=== PATIENT | female | born 1940 | race Caucasian/White ===

== ENCOUNTER → 2016-10-07 | Outpatient (CLI) | payer OTHER ==
[~2016-10-07] MED LIST: ALEN70TA2 PO; CHOL20005 PO; LISI-461 PO; METO25TA56 PO; NRV/5 PO; NXM/40 PO; POTA10TA32 PO; POTA20TA16 PO; PRAV40TA2 PO; TMB100 PO; WARF-280 PO
--- NOTE | 2016-10-07 15:21 | MAMMOGRAPHY REPORT ---
BILATERAL DIGITAL SCREENING MAMMOGRAM WITH CAD: 10/07/2016 CLINICAL HISTORY: Routine screening. Patient has no complaints. TECHNIQUE: Current study was also evaluated with a Computer Aided Detection (CAD) system. Bilateral CC and MLO views were obtained. COMPARISON: Comparison is made to exams dated: 10/06/2015 mammogram, 10/02/2014 mammogram, 10/01/2013 juana mogram, 09/27/2012 mammogram, 09/27/2011 mammogram, and 09/23/2010 mammogram - [facility] BREAST COMPOSITION: There are scattered areas of fibroglandular density in both breasts. FINDINGS: No suspicious masses, calcifications, or areas of architectural distortion are noted in ei ther breast. There has been no significant interval change compared to prior exams. IMPRESSION: ACR BI-RADS CATEGORY 1: NEGATIVE There is no mammographic evidence of malignancy. A 1 year screening mammogram is recommended. The pa tient will receive written notification of the results. Approximately 10% of breast cancers are not detected with mammography. A negative mammographic report should not delay biopsy if a clinically suggestive mass is present. Jordyn Gandhi M.D. /:10/07/2016 12:20:26 Weights And Measures Inspector: Aidee LEYVA(Woo)(Sean)(BD), [facility] letter sent: Normal 1/2 BI-RADS Code: ACR BI-RADS Category 1: Negative
== END | disposition home or self-care (01) ==
LOC: C.MAMM 10:33
PROVIDERS: ATTEND Student in an Organized Health Care Education/Training Program
DX: Z12.31 Encounter for screening mammogram for malignant neoplasm of breast (principal)

== ENCOUNTER 2017-01-13 10:00 | Emergency (ER) | payer OTHER ==
[~2017-01-13] VITALS: Ht 165.1 cm; Wt 74.2 kg
[2017-01-13 10:08] VITALS: TEMP 36.9; Ht 165.1 cm; Wt 74.2 kg
[2017-01-13] MEDS ORDERED: POTA10CA28 PO (10:29)
--- NOTE | 2017-01-13 11:07 | DIAGNOSTIC IMAGING REPORT ---
LEFT LOWER EXTREMITY VENOUS DOPPLER HISTORY: Left lower extremity swelling. COMPARISON STUDY: None. FINDINGS: There is normal compressibility, flow, and augmentation within the left lower extremity deep venous system. There is a 6.8 x 3.0 x 4.6 cm complex oval-shaped structure within the popliteal fossa. This is not demonstrate color flow. IMPRESSION: 1. No DVT within the left lower extremity. 2. A 6.8 x 4.6 x 3.0 cm complex oval-shaped structure within the popliteal fossa. This does not clearly demonstrate color flow to suggest a soft tissue mass and could represent a complex popliteal cyst. However, contrast enhanced nonemergent MRI is recommended to exclude the possibility of a peripheral nerve sheath tumor. Electronically signed by: Jose Nettles M.D. 01/13/2017 11:06 AM Dictated Date/Time: 01/13/2017 11:04 AM
[2017-01-13 11:32] VITALS: BP 155/72; PULSE 57; O2SAT 97
--- NOTE | 2017-01-13 16:34 | EMERGENCY ROOM VISIT NOTE ---
History Report prepared by Jeri: Paul Alvarez Under the Supervision of: Dr. Pramod Maddox D.O. First contact with patient: 10:12 Chief Complaint: KNEEPAIN Stated Complaint: SWELLING/PAIN TO KNEE History of Present Illness The patient is a 76 year old female who presents to the Emergency Room with complaints of left knee pain that began last week. She rates her pain an 8/10 in severity. She has had pain to her knee for the last 2 or 3 years, but it has been worse recently. She saw her PCP a couple of days ago who referred her to get an X-Ray of the left knee. They believed it to be arthritis. However, she is now experiencing swelling to the knee. She notes that her left foot feels asleep as well. She denies any recent trauma or injury to the knee. She denies any previous surgeries to the knee as well. She denies any fevers, nausea, vomiting, diarrhea, weakness, problems defecating, or other numbness. She is having trouble bending her leg. She is on Warfarin. Source of History: patient Onset: last week Position: knee (left) Symptom Intensity: 8/10 Quality: ache Timing: worsening Modifying Factors (Worsening): movement Associated Symptoms: + numbness (right foot), No fevers, No nausea, No vomiting, No melena, No hematochezia, No diarrhea, No weakness Review of Systems See HPI for pertinent positives & negatives. A total of 10 systems reviewed and were otherwise negative. Past Medical & Surgical Medical Problems: (1) CKD (chronic kidney disease) stage 3, GFR 30-59 ml/min (2) GERD (gastroesophageal reflux disease) (3) History of skin cancer (4) Hyperlipidemia (5) Hypertension Nos (6) Obstructive sleep apnea (7) Osteoporosis (8) Paroxysmal atrial fibrillation (9) Rapid atrial fibrillation Surgical Problems: (1) History of cholecystectomy Family History Diabetes mellitus MOTHER FH: emphysema FATHER Gallbladder disease Hypertension MOTHER SISTER Social History Smoking Status: Never Smoker Smokeless Tobacco Use: No Drug Use: none Marital Status: Housing Status: lives with significant other Occupation Status: retired Current/Historical Medications Scheduled Alendronate Sodium (Fosamax), 70 MG PO WK Amlodipine Besylate (Amlodipine Besylate), 5 MG PO DAILY Cholecalciferol (Vitamin D3), 2,000 INTER.UNIT PO DAILY Esomeprazole Magnesium (Nexium), 40 MG PO DAILY Flecainide Acetate (Flecainide Acetate), 100 MG PO BID Lisinopril (Lisinopril), 10 MG PO BID Metoprolol Tartrate (Lopressor) (Lopressor), 25 MG PO BID Potassium Chloride (Micro-K Ext Rel), 10 MEQ PO QPM Potassium Ext Rel (Klor-Con), 20 MEQ PO DAILY Pravastatin Sodium (Pravastatin Sodium), 40 MG PO HS Warfarin Sodium (Warfarin Sodium), 2.5 MG PO UD Allergies Coded Allergies: Penicillins (Verified Allergy, Unknown, RASH, 01/13/17) RASH Physical Exam Vital Signs Date Time Temp Pulse Resp B/P (MAP) Pulse Ox O2 Delivery O2 Flow Rate FiO2 01/13/17 11:32 57 18 155/72 97 Room Air 01/13/17 10:08 36.9 88 18 161/80 98 Room Air Physical Exam GENERAL: Sitting up in bed, holding left extremity at the knee, alert, well appearing, well nourished, minimal distress, non-toxic EYE EXAM: normal conjunctiva OROPHARYNX: no exudate, no erythema, lips, buccal mucosa, and tongue normal and mucous membranes are moist NECK: supple, no nuchal rigidity, no adenopathy, non-tender LUNGS: Clear to auscultation. Normal chest wall mechanics HEART: no murmurs, S1 normal and S2 normal ABDOMEN: abdomen soft, non-tender, normo-active bowel sounds, no masses, no rebound or guarding. UPPER EXTREMITIES: upper extremities are grossly normal. LOWER EXTREMITIES: Left knee with fullness/mass in the posterior prepatellar space. No erythema or induration. Skin intact. Flexion and extension at the hip , knee, ankle, and EHL intact. Significant pain with flexion of the knee beyond 30 degrees. DP 2/4. Gross sensation intact. NEURO EXAM: Normal sensorium, cranial nerves II-XII grossly intact, normal speech, no gross weakness of arms, no gross weakness of legs. Medical Decision & Procedures ER Provider Diagnostic Interpretation: Radiology results as stated below per my review and the radiologist's interpretation: Provided by the patient: KNEE COMPLETE, 4 OR MORE VIEWS X-RAY Borderline diffuse, osteopenia. No acute fracture or dislocation. Mild degenerative changes are noted with joint space narrowing and osteophyte formation, greatest medially. Neutral varus-valgus is noted due to medial joint space narrowing. A small joint effusion is appreciated. No focal soft tissue swelling is seen. Minimal atherosclerotic calcifications noted within the distal thigh. IMPRESSION: 1. No acute osseous abnormality to the LEFT knee. 2. Mild LEFT knee tricompartmental degenerative changes, greatest medially. LEFT LOWER EXTREMITY VENOUS DOPPLER HISTORY: Left lower extremity swelling. COMPARISON STUDY: None. FINDINGS: There is normal compressibility, flow, and augmentation within the left lower extremity deep venous system. There is a 6.8 x 3.0 x 4.6 cm complex oval-shaped structure within the popliteal fossa. This is not demonstrate color flow. IMPRESSION: 1. No DVT within the left lower extremity. 2. A 6.8 x 4.6 x 3.0 cm complex oval-shaped structure within the popliteal fossa. This does not clearly demonstrate color flow to suggest a soft tissue mass and could represent a complex popliteal cyst. However, contrast enhanced nonemergent MRI is recommended to exclude the possibility of a peripheral nerve sheath tumor. Electronically signed by: Jose Nettles M.D. 01/13/2017 11:06 AM Dictated Date/Time: 01/13/2017 11:04 AM ED Course ED COURSE: Vital signs were reviewed and showed hypertension. The patients medical record was reviewed The above diagnostic studies were performed and reviewed. ED treatments and interventions as stated above. 1012: The patient was evaluated in room A9B. A complete history and physical examination was performed. 1120: I updated the patient at this time. She does not want pain medications. 1210: Upon reevaluation, the patient is resting. I discussed my findings with the patient and she understands and agrees with the treatment plan. Based on the patients age, coexisting illnesses, exam and lab findings the decision to treat as an outpatient was made. The patient remained stable while under my care. The patient appeared well at the time of discharge. Medical Decision Differential diagnosis: Etiologies such as fracture, dislocation, neurovascular compromise, compartment syndrome, soft tissue injury, as well as others were entertained. Patient is a 76-year-old female who presents to the ER for left knee pain. She has fullness behind her left knee. She notes that when she flexes that she has significant pain. This is worsening over the past week. Ultrasound shows a 6 x 3 cm mass in the popliteal fossa questionable nerve sheath tumor. Abdomen the patient regards to this. She is on Coumadin and INR on Tuesday was therapeutic. No subtherapeutic INRs in the past 8 months. Patient declined pain medications. She declined crutches. She was discharged follow-up with orthopedics on Tuesday. Discussed with Pt concerning signs and symptoms to watch out for. Pt was instructed to follow up with their PCP and discussed with the patient their option to return to the ED at anytime for persistent or worsening symptoms. The appropriate anticipatory guidance and out-patient management, including indications for return to the emergency department, were explained at length to the patient and understood. Medication Reconcilliation Current Medication List: was personally reviewed by me Blood Pressure Screening Patient's blood pressure: Elevated blood pressure Blood pressure disposition: Elevated BP felt to be situational Impression Primary Impression: Knee pain Scribe Attestation The scribe's documentation has been prepared under my direction and personally reviewed by me in its entirety. I confirm that the note above accurately reflects all work, treatment, procedures, and medical decision making performed by me. Departure Information Dispostion Home / Self-Care Referrals Gregory Goodson M.D. (PCP) Thaddeus Ty M.D. Forms HOME CARE DOCUMENTATION FORM, IMPORTANT VISIT INFORMATION Patient Instructions Cyst Popliteal, ED Effusion Knee, My [facility] Additional Instructions Please follow up with orthopedics with in the next 48 hours. Any worsening of your symptoms, please return to the ED immediately. This includes any fevers greater than 100.4, worsening pain, chest pain, shortness breath, persistent nausea, vomiting, unable to eat or drink, or any other concerning signs or symptoms from your standpoint. ULTRASOUND SHOWS: A 6.8 x 4.6 x 3.0 cm complex oval-shaped structure within the popliteal fossa. This does not clearly demonstrate color flow to suggest a soft tissue mass and could represent a complex popliteal cyst. However, contrast enhanced nonemergent MRI is recommended to exclude the possibility of a peripheral nerve sheath tumor. Problem Qualifiers Primary Impression: Knee pain Chronicity: acute Laterality: left Qualified Codes: M25.562 - Pain in left knee
== END 2017-01-13 11:42 | disposition home or self-care (01) ==
LOC: C.EDB 10:01 → C.EDA 11:42
DX: M25.562 Pain in left knee (principal); N18.3 Chronic kidney disease, stage 3 (moderate); I12.9 Hypertensive chronic kidney disease with stage 1 through stage 4 chronic kidney disease, or unspecified chronic kidney disease; K21.9 Gastro-esophageal reflux disease without esophagitis; Z85.828 Personal history of other malignant neoplasm of skin; E78.5 Hyperlipidemia, unspecified; G47.33 Obstructive sleep apnea (adult) (pediatric); M81.0 Age-related osteoporosis without current pathological fracture; I48.0 Paroxysmal atrial fibrillation; Z90.49 Acquired absence of other specified parts of digestive tract; Z83.3 Family history of diabetes mellitus; Z84.1 Family history of disorders of kidney and ureter; Z82.49 Family history of ischemic heart disease and other diseases of the circulatory system; Z79.899 Other long term (current) drug therapy; Z79.01 Long term (current) use of anticoagulants

== ENCOUNTER 2018-06-05 18:47 | Inpatient (IN) ==
[2018-06-05] MEDS ORDERED: PANTOprazole 80 MG in DEXTROSE 5% 100 ML IV ONE ×2 (18:59)
[2018-06-05] MEDS ORDERED: PANTOPRAZOLE BOLUS/DRIP 1 EA IV STA (18:59)
[2018-06-05] MEDS ORDERED: ONDANSETRON INJ 2 MG/ML 2 ML VIAL IV STA (18:59)
[2018-06-05] MEDS ORDERED: SODIUM CHLORIDE 0.9% 1000ML 1,000 ML IV SCH (19:15)
[2018-06-05 19:33] LABS: Basophils # (auto) 0.02 K/uL (0-0.2); Basophils % (auto) 0.3 %; Eosinophils # (auto) 0.03 K/uL (0-0.5); Eosinophils % (auto) 0.5 %; Hematocrit (blood only) 37.1 % (37-47); Hemoglobin 12.7 g/dL (12.0-16.0); Immature Granulocytes # (auto) 0.01 K/uL (0.00-0.02); Immature Granulocytes % (auto) 0.2 %; Lymphocytes # (auto) 1.47 K/uL (1.2-3.4); Lymphocytes % (auto) 23.7 %; Mean Corpuscular Hgb Conc 34.2 g/dL (32-36); Mean Corpuscular Volume 89.6 fL (80-100); Mean Platelet Volume 10.8 fL (7.4-10.4); Monocytes # (auto) 0.34 K/uL (0.11-0.59); Monocytes % (auto) 5.5 %; Neutrophils # (auto) 4.32 K/uL (1.4-6.5); Neutrophils % (auto) 69.8 %; Platelet Count 230 K/uL (130-400); RDW Coefficient of Variation 13.4 % (11.5-14.5); Red Blood Count 4.14 M/uL (4.2-5.4); White Blood Count 6.19 K/uL (4.8-10.8)
--- NOTE | 2018-06-05 19:41 | XRay Report ---
XR chest 1V portable CLINICAL HISTORY: GIB COMPARISON STUDY: Chest radiograph March 14, 2015. FINDINGS: Lung volumes are normal. There is no pneumothorax or pleural effusion. There is no evidence for pneumonia or pulmonary edema. There is mild cardiomegaly. Cholecystectomy clips are noted. Linea r left basilar opacity suggests atelectasis or scarring. IMPRESSION: No acute cardiopulmonary findings. Electronically signed by: Vladislav Lopez M.D. 06/05/2018 7:40 PM
[2018-06-05 19:51] LABS: Albumin Level 3.5 gm/dl (3.4-5.0); BUN Creatinine Ratio 37.7 (10-20); Calcium 8.3 mg/dl (8.5-10.1); Creatinine Clr Calc Pharmacy 54.3 ml/min; Est GFR (Non-African American) 64.7; Potassium 4.3 mmol/L (3.5-5.1)
[2018-06-05] MEDS: PANTOprazole 40 MG in DEXTROSE 5% 100 ML IV SCH (19:57)
[2018-06-05 19:58] LABS: Albumin Globulin Ratio 0.9 (0.9-2); Bilirubin,Total 1.3 mg/dl (0.2-1); Globulin 3.9 gm/dl (2.5-4.0); Total Protein 7.4 gm/dl (6.4-8.2)
[2018-06-05 20:51] LABS: INR 3.4 (0.9-1.1); Partial Thromboplastin Ratio 1.3; Prothrombin Time 32.2 Seconds (9.0-12.0)
--- NOTE | 2018-06-05 21:43 | Emergency Department Note ---
Entered by Jasmine Núñez acting as a scribe for Lulu Hayes MD History of Present Illness General Chief complaint: Abdominal Pain Stated complaint: lower gi bleed Source: patient History of Present Illness Provider complaint: GI bleed symptoms Onset (ago): day(s) 2 Location: abdomen Quality: + other (GI bleed symptoms) Associated symptoms: + denies other symptoms (denies fluttering in her chest) and + weakness (dizzy); no chest pain, no nausea/vomiting and no shortness of breath The patient is a 78 year old female who presents to the Emergency Room with complaints of GI bleed symptoms over the last 2 days. Per nursing staff, the patient has had black tarry stools over the last 2 nights. She states that she has not had nausea, vomiting, chest pain, fluttering in her chest, or shortness of breath but reports feeling dizzy this afternoon. Nursing staff states that the patient has been on pain medications and Toradol for a T11 fracture. She states that she takes Warfarin and states that her last INR was 4.3 five days ago. She states that after this her dose of Warfarin was decreased. The patient denies a history of problems with ulcers in the past. Home Medications Home Medications Medication Instructions Recorded Confirmed Type alendronate 70 mg PO WK 05/29/18 06/05/18 History amlodipine 5 mg PO QAM 05/29/18 06/05/18 History cholecalciferol (vitamin D3) 1,000 units PO QAM 05/29/18 06/05/18 History [Vitamin D3] flecainide 100 mg PO BID 05/29/18 06/05/18 History lisinopril 10 mg PO BID 05/29/18 06/05/18 History pravastatin 40 mg PO HS 05/29/18 06/05/18 History warfarin 2.5 mg PO 6XWK 05/29/18 06/05/18 History esomeprazole magnesium 40 mg PO DAILY 06/05/18 06/05/18 History metoprolol tartrate 12.5 mg PO BID 06/05/18 06/05/18 History potassium chloride [Klor-Con M10] 10 meq PO QPM 06/05/18 06/05/18 History potassium chloride [Klor-Con M10] 20 meq PO QAM 06/05/18 06/05/18 History warfarin 5 mg PO WK 06/05/18 06/05/18 History Allergies Allergy/AdvReac Type Severity Reaction Status Date / Time Penicillins Allergy Unknown RASH Verified 05/29/18 09:51 Past Med/Surg History Medical History HTN (hypertension) Atrial fibrillation Surgical History S/P cholecystectomy Social History Preferred Language: Chinese Communication Ability: Effective 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 and A total of 10 systems reviewed and were otherwise negative Physical Exam Vital Signs Vital Signs - 24 hr 06/06/18 00:00 06/06/18 04:00 06/06/18 07:23 Temperature 36.9 C 36.7 C 37 C Temperature Source Oral Oral Oral Pulse Rate [Apical] 80 Pulse Rate [Right Finger] 66 66 Pulse Strength [Apical] Normal Respiratory Rate 16 18 18 Respiratory Effort / Characteristics Non-Labored Respiratory Depth Normal Respiratory Pattern Blood Pressure [Left Arm] 131/74 147/76 H Blood Pressure [Right Arm] 143/80 H Blood Pressure Mean [Left Arm] 93 99 Blood Pressure Mean [Right Arm] 101 Blood Pressure Position [Left Arm] Lying Lying Pulse Oximetry 96 96 96 Oxygen Delivery Method Room Air Room Air Room Air 06/06/18 08:00 06/06/18 11:19 06/06/18 15:00 Temperature 37 C 36.5 C Temperature Source Oral Oral Pulse Rate [Apical] Pulse Rate [Right Finger] 64 67 Pulse Strength [Apical] Respiratory Rate 18 22 Respiratory Effort / Characteristics Non-Labored Respiratory Depth Normal Respiratory Pattern Regular Blood Pressure [Left Arm] 120/74 124/75 Blood Pressure [Right Arm] Blood Pressure Mean [Left Arm] 89 91 Blood Pressure Mean [Right Arm] Blood Pressure Position [Left Arm] Lying Pulse Oximetry 96 97 Oxygen Delivery Method Room Air Room Air Vital signs reviewed. General: Elderly-appearing female, in no significant distress. HEENT: No scleral icterus, PERRLA, neck supple. Atraumatic. Cardiovascular: Regular rate and rhythm, no extra sounds. Pulmonary: Clear to auscultation bilaterally, normal work of breathing. Abdomen: Soft, nontender, nondistended, positive bowel sounds. Musculoskeletal: Atraumatic, no peripheral edema. Neurologic: Patient awake alert and oriented x 3 Skin: Warm, dry, no rash Rectal: Normal rectal mucosa. Guaiac positive. Melanotic. Course 1851: Past medical records reviewed. The patient was evaluated in room C7, and a complete history and physical examination were performed. 2029: I updated the patient who verbalized agreement and understanding of the treatment plan. 2035: I discussed the patient's case with Dr. Bell who will evaluate the patient for further management. Consultations Consultation #1: Dr. Bell Time: 20:36 Administered Medications Amlodipine Besylate (Norvasc) 5 mg PO QAM CURLY Stop: 07/06/18 08:59 Last Admin: 06/06/18 09:48 Dose: 5 mg Documented by: [id number] Flecainide Acetate (Tambocor) 100 mg PO BID CURLY Stop: 07/06/18 00:01 Last Admin: 06/06/18 21:16 Dose: 100 mg Documented by: [id number] Admin: 06/06/18 09:48 Dose: 100 mg Documented by: [id number] Admin: 06/06/18 00:44 Dose: 100 mg Documented by: [id number] Sodium Chloride (Nss 1000ml) 1,000 mls @ 50 mls/hr IV .Q20H CURLY Stop: 07/06/18 00:01 Last Admin: 06/06/18 21:08 Dose: 50 mls/hr Documented by: [id number] Infusion: 06/06/18 20:43 Dose: 50 mls/hr Documented by: [id number] Admin: 06/06/18 00:43 Dose: 50 mls/hr Documented by: [id number] Pantoprazole Sodium 40 mg/ (Syringe) 10 mls @ 5 mls/min IV BID CURLY Stop: 07/06/18 20:59 Last Admin: 06/06/18 21:19 Dose: 5 mls/min Documented by: [id number] Lidocaine (Lidoderm 5%) 1 patch TD HS CURLY Stop: 07/06/18 00:14 Last Admin: 06/06/18 21:10 Dose: 1 patch Documented by: [id number] Admin: 06/06/18 00:44 Dose: 1 patch Documented by: [id number] Lisinopril (Zestril) 10 mg PO BID CURLY Stop: 07/06/18 08:59 Last Admin: 06/06/18 21:16 Dose: 10 mg Documented by: [id number] Admin: 06/06/18 11:57 Dose: 10 mg Documented by: [id number] Metoprolol Tartrate (Lopressor) 12.5 mg PO BID CURLY Stop: 07/06/18 08:59 Last Admin: 06/06/18 21:17 Dose: 12.5 mg Documented by: [id number] Admin: 06/06/18 09:45 Dose: 12.5 mg Documented by: [id number] Miscellaneous (Remove Lidoderm Patch) 1 ea N/A QAM CURLY Stop: 07/06/18 10:29 Last Admin: 06/06/18 10:30 Dose: 1 ea Documented by: [id number] Potassium Chloride (Klor-Con M10) 10 meq PO QPM CURLY Stop: 07/06/18 20:59 Last Admin: 06/06/18 21:15 Dose: 10 meq Documented by: [id number] Pravastatin Sodium (Pravachol) 40 mg PO HS CURLY Stop: 07/06/18 20:59 Last Admin: 06/06/18 21:17 Dose: 40 mg Documented by: [id number] Discontinued Medications Pantoprazole Sodium (Protonix Bolus/Drip) 0 mls @ 1 mls/hr IV ONE STA Stop: 06/05/18 19:00 Last Admin: 06/05/18 20:33 Dose: Not Given Documented by: [id number] Pantoprazole Sodium 40 mg/ (Dextrose) 100 mls @ 20 mls/hr IV Q5H CURLY Stop: 07/05/18 18:59 Last Admin: 06/06/18 09:55 Dose: 20 mls/hr Documented by: [id number] Infusion: 06/06/18 09:55 Dose: 20 mls/hr Documented by: [id number] Admin: 06/06/18 04:59 Dose: 20 mls/hr Documented by: [id number] Infusion: 06/06/18 04:59 Dose: 20 mls/hr Documented by: [id number] Infusion: 06/06/18 02:19 Dose: 20 mls/hr Documented by: [id number] Infusion: 06/06/18 02:01 Dose: 0 mls/hr Documented by: [id number] Admin: 06/06/18 00:43 Dose: 20 mls/hr Documented by: [id number] Infusion: 06/06/18 00:19 Dose: 0 mls/hr Documented by: [id number] Admin: 06/05/18 19:57 Dose: 20 mls/hr Documented by: [id number] Pantoprazole Sodium 80 mg/ (Dextrose) 120 mls @ 400 mls/hr IV NOW ONE Stop: 06/05/18 19:16 Last Admin: 06/05/18 20:33 Dose: Not Given Documented by: [id number] Sodium Chloride (Nss 1000ml) 1,000 mls @ 125 mls/hr IV .Q8H CURLY Stop: 07/05/18 19:14 Last Infusion: 06/06/18 00:06 Dose: 0 mls/hr Documented by: [id number] Admin: 06/05/18 19:24 Dose: 125 mls/hr Documented by: [id number] Pantoprazole Sodium 80 mg/ (Dextrose) 100 mls @ 400 mls/hr IV NOW ONE Stop: 06/05/18 19:13 Last Infusion: 06/05/18 19:54 Dose: 0 mls/hr Documented by: [id number] Admin: 06/05/18 19:39 Dose: 400 mls/hr Documented by: [id number] Phytonadione 10 mg/ Sodium (Chloride) 51 mls @ 102 mls/hr IV ONE ONE Stop: 06/05/18 23:14 Last Infusion: 06/06/18 02:19 Dose: 0 mls/hr Documented by: [id number] Admin: 06/06/18 01:50 Dose: 102 mls/hr Documented by: [id number] Ondansetron HCl (Zofran) 4 mg IV ONE STA Stop: 06/05/18 19:00 Last Admin: 06/05/18 20:01 Dose: 4 mg Documented by: [id number] Medical Decision Making Differential Diagnosis Differential diagnosis: Etiologies such as esophagitis, variceal bleed, [place], [place] tear, gastritis, peptic ulcer disease, AVM, inflammatory bowel disease, ischemia, diverticulosis, colitis, malignancy, coagulopathy, thrombocytopenia, fissure, hemorrhoid, epistaxis , as well as others were entertained. Medical Records Attestation: I reviewed the patient's medical records. Home Medications Current Medication List: was personally reviewed by me Laboratory Data Attestation: I reviewed the patient's lab results. Result diagrams: 06/06/18 11:53 06/05/18 18:20 Lab Results 06/05/18 06/05/18 06/05/18 Range/Units 18:20 18:20 18:20 WBC 6.19 (4.8-10.8) K/uL RBC 4.14 L (4.2-5.4) M/uL Hgb 12.7 (12.0-16.0) g/dL Hct 37.1 (37-47) % MCV 89.6 (80-100) fL MCH 30.7 (25-34) pg MCHC 34.2 (32-36) g/dL RDW Std Deviation 44.0 (36.4-46.3) fL RDW Coeff of [place] 13.4 (11.5-14.5) % Plt Count 230 (130-400) K/uL MPV 10.8 H (7.4-10.4) fL Immature Gran % (Auto) 0.2 % Neut % (Auto) 69.8 % Lymph % (Auto) 23.7 % [place] % (Auto) 5.5 % Eos % (Auto) 0.5 % Baso % (Auto) 0.3 % Immature Gran # (Auto) 0.01 (0.00-0.02) K/uL Neut # (Auto) 4.32 (1.4-6.5) K/uL Lymph # (Auto) 1.47 (1.2-3.4) K/uL [place] # (Auto) 0.34 (0.11-0.59) K/uL Eos # (Auto) 0.03 (0-0.5) K/uL Baso # (Auto) 0.02 (0-0.2) K/uL PT Cancelled INR Cancelled APTT Cancelled PTT Ratio Cancelled Sodium 139 (136-145) mmol/L Potassium 4.3 (3.5-5.1) mmol/L Chloride 107 (98-107) mmol/L Carbon Dioxide 27 (21-32) mmol/L Anion Gap 5.0 (3-11) BUN 33 H (7-18) mg/dl Creatinine 0.87 (0.6-1.2) mg/dl Est Cr Clr Drug Dosing 54.3 ml/min Est GFR ( Amer) 75.0 Est GFR (Non-Af Amer) 64.7 BUN/Creatinine Ratio 37.7 H (10-20) Glucose 101 H (70-99) mg/dl Calcium 8.3 L (8.5-10.1) mg/dl Magnesium (1.8-2.4) mg/dl Total Bilirubin 1.3 H (0.2-1) mg/dl AST 14 L (15-37) U/L ALT 22 (12-78) U/L Alkaline Phosphatase 76 (45-117) U/L Total Protein 7.4 (6.4-8.2) gm/dl Albumin 3.5 (3.4-5.0) gm/dl Globulin 3.9 (2.5-4.0) gm/dl Albumin/Globulin Ratio 0.9 (0.9-2) Blood Type Antibody Screen 06/05/18 06/05/18 06/05/18 Range/Units 18:20 20:27 20:27 WBC (4.8-10.8) K/uL RBC (4.2-5.4) M/uL Hgb (12.0-16.0) g/dL Hct (37-47) % MCV (80-100) fL MCH (25-34) pg MCHC (32-36) g/dL RDW Std Deviation (36.4-46.3) fL RDW Coeff of [place] (11.5-14.5) % Plt Count (130-400) K/uL MPV (7.4-10.4) fL Immature Gran % (Auto) % Neut % (Auto) % Lymph % (Auto) % [place] % (Auto) % Eos % (Auto) % Baso % (Auto) % Immature Gran # (Auto) (0.00-0.02) K/uL Neut # (Auto) (1.4-6.5) K/uL Lymph # (Auto) (1.2-3.4) K/uL [place] # (Auto) (0.11-0.59) K/uL Eos # (Auto) (0-0.5) K/uL Baso # (Auto) (0-0.2) K/uL PT 32.2 H INR 3.4 H APTT 35.0 H PTT Ratio 1.3 Sodium (136-145) mmol/L Potassium (3.5-5.1) mmol/L Chloride (98-107) mmol/L Carbon Dioxide (21-32) mmol/L Anion Gap (3-11) BUN (7-18) mg/dl Creatinine (0.6-1.2) mg/dl Est Cr Clr Drug Dosing ml/min Est GFR ( Amer) Est GFR (Non-Af Amer) BUN/Creatinine Ratio (10-20) Glucose (70-99) mg/dl Calcium (8.5-10.1) mg/dl Magnesium 2.1 (1.8-2.4) mg/dl Total Bilirubin (0.2-1) mg/dl AST (15-37) U/L ALT (12-78) U/L Alkaline Phosphatase (45-117) U/L Total Protein (6.4-8.2) gm/dl Albumin (3.4-5.0) gm/dl Globulin (2.5-4.0) gm/dl Albumin/Globulin Ratio (0.9-2) Blood Type A Positive Antibody Screen NEGATIVE 06/06/18 06/06/18 06/06/18 Range/Units 00:10 06:39 06:39 WBC 4.91 (4.8-10.8) K/uL RBC 3.35 L (4.2-5.4) M/uL Hgb 11.5 L 10.3 L (12.0-16.0) g/dL Hct 33.8 L 30.2 L (37-47) % MCV 90.1 (80-100) fL MCH 30.7 (25-34) pg MCHC 34.1 (32-36) g/dL RDW Std Deviation 44.6 (36.4-46.3) fL RDW Coeff of [place] 13.6 (11.5-14.5) % Plt Count 169 (130-400) K/uL MPV 10.1 (7.4-10.4) fL Immature Gran % (Auto) 0.0 % Neut % (Auto) 63.4 % Lymph % (Auto) 27.7 % [place] % (Auto) 7.5 % Eos % (Auto) 1.2 % Baso % (Auto) 0.2 % Immature Gran # (Auto) 0.00 (0.00-0.02) K/uL Neut # (Auto) 3.11 (1.4-6.5) K/uL Lymph # (Auto) 1.36 (1.2-3.4) K/uL [place] # (Auto) 0.37 (0.11-0.59) K/uL Eos # (Auto) 0.06 (0-0.5) K/uL Baso # (Auto) 0.01 (0-0.2) K/uL PT 17.7 H INR 1.8 H APTT PTT Ratio Sodium (136-145) mmol/L Potassium (3.5-5.1) mmol/L Chloride (98-107) mmol/L Carbon Dioxide (21-32) mmol/L Anion Gap (3-11) BUN (7-18) mg/dl Creatinine (0.6-1.2) mg/dl Est Cr Clr Drug Dosing ml/min Est GFR ( Amer) Est GFR (Non-Af Amer) BUN/Creatinine Ratio (10-20) Glucose (70-99) mg/dl Calcium (8.5-10.1) mg/dl Magnesium (1.8-2.4) mg/dl Total Bilirubin (0.2-1) mg/dl AST (15-37) U/L ALT (12-78) U/L Alkaline Phosphatase (45-117) U/L Total Protein (6.4-8.2) gm/dl Albumin (3.4-5.0) gm/dl Globulin (2.5-4.0) gm/dl Albumin/Globulin Ratio (0.9-2) Blood Type Antibody Screen 06/06/18 Range/Units 11:53 WBC (4.8-10.8) K/uL RBC (4.2-5.4) M/uL Hgb 10.1 L (12.0-16.0) g/dL Hct 30.5 L (37-47) % MCV (80-100) fL MCH (25-34) pg MCHC (32-36) g/dL RDW Std Deviation (36.4-46.3) fL RDW Coeff of [place] (11.5-14.5) % Plt Count (130-400) K/uL MPV (7.4-10.4) fL Immature Gran % (Auto) % Neut % (Auto) % Lymph % (Auto) % [place] % (Auto) % Eos % (Auto) % Baso % (Auto) % Immature Gran # (Auto) (0.00-0.02) K/uL Neut # (Auto) (1.4-6.5) K/uL Lymph # (Auto) (1.2-3.4) K/uL [place] # (Auto) (0.11-0.59) K/uL Eos # (Auto) (0-0.5) K/uL Baso # (Auto) (0-0.2) K/uL PT INR APTT PTT Ratio Sodium (136-145) mmol/L Potassium (3.5-5.1) mmol/L Chloride (98-107) mmol/L Carbon Dioxide (21-32) mmol/L Anion Gap (3-11) BUN (7-18) mg/dl Creatinine (0.6-1.2) mg/dl Est Cr Clr Drug Dosing ml/min Est GFR ( Amer) Est GFR (Non-Af Amer) BUN/Creatinine Ratio (10-20) Glucose (70-99) mg/dl Calcium (8.5-10.1) mg/dl Magnesium (1.8-2.4) mg/dl Total Bilirubin (0.2-1) mg/dl AST (15-37) U/L ALT (12-78) U/L Alkaline Phosphatase (45-117) U/L Total Protein (6.4-8.2) gm/dl Albumin (3.4-5.0) gm/dl Globulin (2.5-4.0) gm/dl Albumin/Globulin Ratio (0.9-2) Blood Type Antibody Screen Imaging Data Radiologist's Impression: Radiology results as stated below per my review and the radiologist's interpretation: XR chest 1V portable CLINICAL HISTORY: GIB COMPARISON STUDY: Chest radiograph March 14, 2015. FINDINGS: Lung volumes are normal. There is no pneumothorax or pleural effusion. There is no evidence for pneumonia or pulmonary edema. There is mild cardiomegaly. Cholecystectomy clips are noted. Linear left basilar opacity suggests atelectasis or scarring. IMPRESSION: No acute cardiopulmonary findings. Electronically signed by: Vladislav Lopez M.D. 06/05/2018 7:40 PM ECG Data Attestation: I personally reviewed and interpreted this ECG as follows: Indication: other (GI bleed ) Rate (beats per minute): 72 Rhythm: normal sinus Findings: + other (non-specific T-wave abnormalities, QTC 479), + T-wave inversion (of anterior leads) and + left axis deviation Blood Pressure Blood Pressure Findings: Elevated blood pressure Blood Pressure Disposition: further management by hospitalist MDM Narrative This patient was evaluated and appeared to be in no significant distress. IV access was obtained and laboratory work was drawn. Patient was placed on the cardiac cath lab radiology technologist and hydrated with normal saline solution. IV Protonix was initiated. Patient's stool is guaiac positive melanotic. Patient's hemoglobin is 12.7 from 15.2 with an INR of 3.4. The patient seems to be stable. Chest x- ray was obtained and is clear. EKG reveals a normal sinus rhythm, left axis deviation with repolarization abnormality. Patient's case was discussed with the hospitalist service will evaluate the patient for further management. Patient is aware of this plan and agrees. Impression & Plan Upper GI bleed Discharge Plan Visit Data *Final* Discharge Date/Time: 06/05/18 23:19 Chief Complaint: Abdominal Pain Stated Complaint: lower gi bleed ED Provider: Lulu Hayes Discharge Problem: Upper GI bleed Patient Disposition: Admitted As Inpatient Discharge Instructions Interventions: ED Discharge Assessment Last Done: 06/05/18 23:19 The scribe's documentation has been prepared under my direction and personally reviewed by me in its entirety. I confirm that the note above accurately reflects all work, treatment, procedures, and medical decision making performed by me.
[2018-06-05] MEDS ORDERED: PHYTONADIONE 10 MG in SODIUM CHLORIDE 0.9% 50 ML IV ONE (22:45)
--- NOTE | 2018-06-05 22:48 | History & Physical Report ---
Date of Service June 05, 2018 Assessment & Plan (1) Upper GI bleed: Differentials included gastritis, PUD Precipitated by NSAID intake for recent compression fracture in the setting of Coumadin coagulopathy paroxysmal AF sp ablation on anticoagulation, Patient NSR, INR slightly supratherapeutic HTN, slightly elevated Loose stools rule out C. difficile Medical telemetry IV PPI Appropriate to hold Coumadin for now; vitamin K for coagulopathy causing UGIB causing hemoglobin drop from baseline GI consult RE GI bleed Lidoderm patch trial for compression fracture Stool C. difficile DVT prophylaxis. SCDs while INR less than 2 while Coumadin on hold RE GI bleed Full code History of Present Illness Chief Complaint: melena Primary Care Provider: Gregory Goodson History obtained from patient, family, and records. Medical history significant for for paroxysmal AF sp ablation on anticoagulation, HTN, skin cancer, TISHA. Recent confinement February 2015 for recurrent atrial fibrillation. Flecainide added to patient's regimen. Patient seen at the ER last week for 3 weeks history of lower back injury noted after carrying a 60 pound tote at home. CT lumbar spine showed small and acute appearing superior endplate compression fracture of T11 with retropulsed segments and associated paravertebral edema. Local orthopedic permit specialist seen at the office last week. Back brace fitted and Toradol prescribed for pain. 2 days ago, patient noted loose black starry stools with minimal abdominal cramping, no hematemesis. Toradol stopped by patient. Patient denies CP, S OB. PCP recommended ER visit if with worsening symptoms. At the ER, IV PPI started for UGI B. Medical History as above EGD 2004: Hiatal hernia, nonbleeding erosive gastropathy, single duodenal polyp Surgical History : Knee surgery, cholecystectomy Family History : Diabetes, COPD, high blood pressure Personal/Social history : Non-smoker, no EtOH intake, retired from [employer] work Allergies Allergy/AdvReac Type Severity Reaction Status Date / Time Penicillins Allergy Unknown RASH Verified 05/29/18 09:51 Home Medications Home Medications Medication Instructions Recorded Confirmed Type alendronate 70 mg PO WK 05/29/18 06/05/18 History amlodipine 5 mg PO QAM 05/29/18 06/05/18 History cholecalciferol (vitamin D3) 1,000 units PO QAM 05/29/18 06/05/18 History [Vitamin D3] flecainide 100 mg PO BID 05/29/18 06/05/18 History lisinopril 10 mg PO BID 05/29/18 06/05/18 History pravastatin 40 mg PO HS 05/29/18 06/05/18 History warfarin 2.5 mg PO [id number] 05/29/18 06/05/18 History esomeprazole magnesium 40 mg PO DAILY 06/05/18 06/05/18 History metoprolol tartrate 12.5 mg PO BID 06/05/18 06/05/18 History potassium chloride [Klor-Con M10] 10 meq PO QPM 06/05/18 06/05/18 History potassium chloride [Klor-Con M10] 20 meq PO QAM 06/05/18 06/05/18 History warfarin 5 mg PO WK 06/05/18 06/05/18 History Past Med/Surg History Medical History HTN (hypertension) Atrial fibrillation Surgical History S/P cholecystectomy Social History Preferred Language: Yoruba Communication Ability: Effective [employer] 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 Beliefs That Will Affect Care: None Current Living Situation: Spouse Other Information That Helps Us Care for You: No Feels Safe at Home: Yes Smoking Status: Never smoker Hx Alcohol Use: No Hx Substance Use: No Review of Systems As per HPI, all 10 systems reviewed, all other ROS negative Physical Exam Vital Signs (Past 24 Hours): Last Vital Signs Temp 36.9 C 06/05/18 18:53 Pulse 75 06/05/18 21:30 Resp 22 06/05/18 21:30 BP 152/98 H 06/05/18 21:30 Pulse Ox 96 06/05/18 21:30 Physical Exam: GENERAL: Comfortable, pleasant, no respiratory distress SKIN: Pallor, warm HEENT: Pale palpebral conjunctivae, no ptosis, dry buccal mucosa NECK : Supple, no tenderness CHEST : CTA, no tenderness HEART : RRR, no obvious murmurs ABDOMEN: Some distention, minimal epigastric tenderness EXTREMITIES : No LE swelling/tenderness, no other conspicuous deformities noted NEUROLOGIC : Coherent, no facial asymmetry, no other gross focality Results & Data Laboratory Results Laboratory Results WBC 6.19 K/uL (4.8-10.8) 06/05/18 18:20 RBC 4.14 M/uL (4.2-5.4) L 06/05/18 18:20 Hgb 12.7 g/dL (12.0-16.0) 06/05/18 18:20 Hct 37.1 % (37-47) 06/05/18 18:20 MCV 89.6 fL (80-100) 06/05/18 18:20 MCH 30.7 pg (25-34) 06/05/18 18:20 MCHC 34.2 g/dL (32-36) 06/05/18 18:20 RDW Std Deviation 44.0 fL (36.4-46.3) 06/05/18 18:20 RDW Coeff of [place] 13.4 % (11.5-14.5) 06/05/18 18:20 Plt Count 230 K/uL (130-400) 06/05/18 18:20 MPV 10.8 fL (7.4-10.4) H 06/05/18 18:20 Immature Gran % (Auto) 0.2 % 06/05/18 18:20 Neut % (Auto) 69.8 % 06/05/18 18:20 Lymph % (Auto) 23.7 % 06/05/18 18:20 [place] % (Auto) 5.5 % 06/05/18 18:20 Eos % (Auto) 0.5 % 06/05/18 18:20 Baso % (Auto) 0.3 % 06/05/18 18:20 Immature Gran # (Auto) 0.01 K/uL (0.00-0.02) 06/05/18 18:20 Neut # (Auto) 4.32 K/uL (1.4-6.5) 06/05/18 18:20 Lymph # (Auto) 1.47 K/uL (1.2-3.4) 06/05/18 18:20 [place] # (Auto) 0.34 K/uL (0.11-0.59) 06/05/18 18:20 Eos # (Auto) 0.03 K/uL (0-0.5) 06/05/18 18:20 Baso # (Auto) 0.02 K/uL (0-0.2) 06/05/18 18:20 PT 32.2 Seconds (9.0-12.0) H 06/05/18 20:27 INR 3.4 (0.9-1.1) H 06/05/18 20:27 APTT 35.0 Seconds (21.0-31.0) H 06/05/18 20:27 PTT Ratio 1.3 06/05/18 20:27 Sodium 139 mmol/L (136-145) 06/05/18 18:20 Potassium 4.3 mmol/L (3.5-5.1) 06/05/18 18:20 Chloride 107 mmol/L (98-107) 06/05/18 18:20 Carbon Dioxide 27 mmol/L (21-32) 06/05/18 18:20 Anion Gap 5.0 (3-11) 06/05/18 18:20 BUN 33 mg/dl (7-18) H 06/05/18 18:20 Creatinine 0.87 mg/dl (0.6-1.2) 06/05/18 18:20 Est Cr Clr Drug Dosing 54.3 ml/min 06/05/18 18:20 Est GFR ( Amer) 75.0 06/05/18 18:20 Est GFR (Non-Af Amer) 64.7 06/05/18 18:20 BUN/Creatinine Ratio 37.7 (10-20) H 06/05/18 18:20 Glucose 101 mg/dl (70-99) H 06/05/18 18:20 Calcium 8.3 mg/dl (8.5-10.1) L 06/05/18 18:20 Magnesium 2.1 mg/dl (1.8-2.4) 06/05/18 18:20 Total Bilirubin 1.3 mg/dl (0.2-1) H 06/05/18 18:20 AST 14 U/L (15-37) L 06/05/18 18:20 ALT 22 U/L (12-78) 06/05/18 18:20 Alkaline Phosphatase 76 U/L (45-117) 06/05/18 18:20 Total Protein 7.4 gm/dl (6.4-8.2) 06/05/18 18:20 Albumin 3.5 gm/dl (3.4-5.0) 06/05/18 18:20 Globulin 3.9 gm/dl (2.5-4.0) 06/05/18 18:20 Albumin/Globulin Ratio 0.9 (0.9-2) 06/05/18 18:20 Blood Type A Positive 06/05/18 20:27 Antibody Screen NEGATIVE 06/05/18 20:27 Diagnostic Findings Chest x-ray showed no acute pathology EKG as per my interpretation : Rate 70, NSR, LAD, LAFB, diffuse T wave flattening
[2018-06-06] MEDS ORDERED: ACETAMINOPHEN 325 MG TAB PO PRN (00:02)
[2018-06-06] MEDS ORDERED: PROCHLORPERAZINE 5 MG in SYRINGE 4 ML IV PRN (00:02)
[2018-06-06] MEDS ORDERED: TRAMADOL HCL 50 MG TABLET PO PRN (00:02)
[2018-06-06 00:25] LABS: Hematocrit (blood only) 33.8 % (37-47); Hemoglobin 11.5 g/dL (12.0-16.0)
[2018-06-06] MEDS: SODIUM CHLORIDE 0.9% 1000ML 1,000 ML IV SCH ×2 (00:43→21:08)
[2018-06-06] MEDS: PANTOprazole 40 MG in DEXTROSE 5% 100 ML IV SCH ×3 (00:43→09:55)
[2018-06-06] MEDS: LIDOCAINE 5% 1 PATCH TD SCH ×2 (00:44→21:10)
[2018-06-06] MEDS: FLECAINIDE ACETATE 100 MG TABLET PO SCH ×3 (00:44→21:16)
[2018-06-06 07:01] LABS: Basophils # (auto) 0.01 K/uL (0-0.2); Basophils % (auto) 0.2 %; Eosinophils # (auto) 0.06 K/uL (0-0.5); Eosinophils % (auto) 1.2 %; Hematocrit (blood only) 30.2 % (37-47); Hemoglobin 10.3 g/dL (12.0-16.0); Lymphocytes # (auto) 1.36 K/uL (1.2-3.4); Lymphocytes % (auto) 27.7 %; Mean Corpuscular Hgb Conc 34.1 g/dL (32-36); Mean Corpuscular Volume 90.1 fL (80-100); Mean Platelet Volume 10.1 fL (7.4-10.4); Monocytes # (auto) 0.37 K/uL (0.11-0.59); Monocytes % (auto) 7.5 %; Neutrophils # (auto) 3.11 K/uL (1.4-6.5); Neutrophils % (auto) 63.4 %; Platelet Count 169 K/uL (130-400); RDW Coefficient of Variation 13.6 % (11.5-14.5); RDW Standard Deviation 44.6 fL (36.4-46.3); Red Blood Count 3.35 M/uL (4.2-5.4); White Blood Count 4.91 K/uL (4.8-10.8)
[2018-06-06 07:14] LABS: INR 1.8 (0.9-1.1); Prothrombin Time 17.7 Seconds (9.0-12.0)
[2018-06-06] MEDS: METOPROLOL TARTRATE 25 MG TAB PO SCH ×2 (09:45→21:17)
[2018-06-06] MEDS: AMLODIPINE BESYLATE 5 MG TAB PO SCH (09:48)
--- NOTE | 2018-06-06 10:34 | Gastrointestinal Consultation ---
Date of Consultation June 06, 2018 Assessment & Plan (1) Upper GI bleed: Dark black, tarry stools and drop in Hgb most likely secondary to UGIB from recent coagulopathy. Coumadin being held. Although hgb has dropped, patient is having no significant active bleeding - bowels moving about every other day. Would keep her on a PPI - OK to change from drip to IVPB BID. Follow Hgb and monitor symptoms. Would hold endoscopy at the present time. May need further OP work up for weight loss, if this persists. Supervising Physician Co-Signing Physician Notes I have personally seen and examined the patient with Zandra Issa PA-C. Her note reflects my exam and findings. I agree with her impression and plan. Agree with PPI. Case c/w low grade upper GI bleed from NSAID use. Follow H/H. An upper endoscopy would not add to her care at this point. Eliseo Jones M.D. History of Present Illness Attending Physician: Benny Newby MD History of Present Illness 78 year old female with a hx of HTN, afib/on coumadin, and CKD, admitted with a 2 day hx of dark black, tarry stools and drop in Hgb. She reports coagulopathy with a recent INR of 4.3, repeated at 3.4 yesterday, 1.8 this morning. She denies any abdominal pain, n/v or heartburn. She had some loose, more frequent stooling a little over a week ago, but this has actually slowed in the past several days. She reports one loose-formed, dark BM on Tuesday, and 2 loose, dark BMs on Tuesday. None yet today, by her admission. She does report a poor appetite and a weight loss of about 10 pounds in the past few months. Labs show again an elevated INR, which is improved today to 1.8. Hgb has been dropping. Was 12.7 yesterday, 11.5 around midnight, and repeated at 10.3 this morning. BUN is elevated at 33 (prior 9). Recent CTAP was unremarkable from a GI standpoint. Last EGD was in 2004, showing a hiatal hernia, erosive gastropathy, and a duodenal polyp. Bx - benign. Last colonoscopy was in 2007, and was normal. Allergies Allergy/AdvReac Type Severity Reaction Status Date / Time Penicillins Allergy Unknown RASH Verified 05/29/18 09:51 Home Medications Home Medications Medication Instructions Recorded Confirmed Type alendronate 70 mg PO WK 05/29/18 06/05/18 History amlodipine 5 mg PO QAM 05/29/18 06/05/18 History cholecalciferol (vitamin D3) 1,000 units PO QAM 05/29/18 06/05/18 History [Vitamin D3] flecainide 100 mg PO BID 05/29/18 06/05/18 History lisinopril 10 mg PO BID 05/29/18 06/05/18 History pravastatin 40 mg PO HS 05/29/18 06/05/18 History warfarin 2.5 mg PO [id number] 05/29/18 06/05/18 History esomeprazole magnesium 40 mg PO DAILY 06/05/18 06/05/18 History metoprolol tartrate 12.5 mg PO BID 06/05/18 06/05/18 History potassium chloride [Klor-Con M10] 10 meq PO QPM 06/05/18 06/05/18 History potassium chloride [Klor-Con M10] 20 meq PO QAM 06/05/18 06/05/18 History warfarin 5 mg PO WK 06/05/18 06/05/18 History Patient History Medical History HTN (hypertension) Atrial fibrillation Surgical History S/P cholecystectomy Social History Preferred Language: Latvian Communication Ability: Effective 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 Beliefs That Will Affect Care: None Current Living Situation: Spouse Other Information That Helps Us Care for You: No Feels Safe at Home: Yes Smoking Status: Never smoker Hx Alcohol Use: No Hx Substance Use: No Review of Systems Constitutional: no fever, no chills, no fatigue and no weight loss Eyes: no eye pain and no worsening vision Ear, Nose, Mouth, Throat: no ear pain, no hearing loss, no nasal congestion and no sore throat Respiratory: no cough, no chest congestion and no wheezing Cardiovascular: no chest pain and no dyspnea Gastrointestinal: as per Subjective / HPI Genitourinary (Female): no dysuria and no urinary incontinence Musculoskeletal: no joint pain Integumentary: no rash and no pruritus Neurologic: no tingling, no numbness and no dizziness Psychiatric: no suicidal ideation and no confusion Endocrine: no cold intolerance and no heat intolerance Hematologic / Lymphatic: no easy bleeding and no easy bruising Allergy / Immunological: no problem reported Physical Exam Vital Signs (Past 24 Hours): Last Vital Signs Temp 37 C 06/06/18 07:23 Pulse 66 06/06/18 07:23 Resp 18 06/06/18 07:23 BP 147/76 H 06/06/18 07:23 Pulse Ox 96 06/06/18 07:23 Constitutional: WD/WN, vitals as above healthy appearing; no acute distress Eyes: + anicteric sclerae ENMT: external ear and nose normal, oropharynx normal Neck: normal visual inspection Respiratory: normal respiratory effort, lungs clear to auscultation Cardiovascular: Rate/Rhythm: regular rate and regular rhythm Heart Sounds: no murmur Gastrointestinal (Abdomen): normal bowel sounds, soft, nontender, no hepatosplenomegaly Musculoskeletal: Head/Neck/Chest: normocephalic and head atraumatic Skin: no rashes, warm and dry Neurologic: moves all extremities; no focal motor deficits Psychiatric: Orientation: alert and oriented x 3 Results & Data Laboratory Results Laboratory Results - last 48 hr 06/05/18 06/05/18 06/05/18 18:20 18:20 18:20 WBC 6.19 RBC 4.14 L Hgb 12.7 Hct 37.1 MCV 89.6 MCH 30.7 MCHC 34.2 RDW Std Deviation 44.0 RDW Coeff of Kenrick 13.4 Plt Count 230 MPV 10.8 H Immature Gran % (Auto) 0.2 Neut % (Auto) 69.8 Lymph % (Auto) 23.7 [place] % (Auto) 5.5 Eos % (Auto) 0.5 Baso % (Auto) 0.3 Immature Gran # (Auto) 0.01 Neut # (Auto) 4.32 Lymph # (Auto) 1.47 [place] # (Auto) 0.34 Eos # (Auto) 0.03 Baso # (Auto) 0.02 PT Cancelled INR Cancelled APTT Cancelled PTT Ratio Cancelled Sodium 139 Potassium 4.3 Chloride 107 Carbon Dioxide 27 Anion Gap 5.0 BUN 33 H Creatinine 0.87 Est Cr Clr Drug Dosing 54.3 Est GFR ( Amer) 75.0 Est GFR (Non-Af Amer) 64.7 BUN/Creatinine Ratio 37.7 H Glucose 101 H Calcium 8.3 L Magnesium Total Bilirubin 1.3 H AST 14 L ALT 22 Alkaline Phosphatase 76 Total Protein 7.4 Albumin 3.5 Globulin 3.9 Albumin/Globulin Ratio 0.9 Blood Type Antibody Screen 06/05/18 06/05/18 06/05/18 18:20 20:27 20:27 WBC RBC Hgb Hct MCV MCH MCHC RDW Std Deviation RDW Coeff of Kenrick Plt Count MPV Immature Gran % (Auto) Neut % (Auto) Lymph % (Auto) [place] % (Auto) Eos % (Auto) Baso % (Auto) Immature Gran # (Auto) Neut # (Auto) Lymph # (Auto) [place] # (Auto) Eos # (Auto) Baso # (Auto) PT 32.2 H INR 3.4 H APTT 35.0 H PTT Ratio 1.3 Sodium Potassium Chloride Carbon Dioxide Anion Gap BUN Creatinine Est Cr Clr Drug Dosing Est GFR ( Amer) Est GFR (Non-Af Amer) BUN/Creatinine Ratio Glucose Calcium Magnesium 2.1 Total Bilirubin AST ALT Alkaline Phosphatase Total Protein Albumin Globulin Albumin/Globulin Ratio Blood Type A Positive Antibody Screen NEGATIVE 06/06/18 06/06/18 06/06/18 00:10 06:39 06:39 WBC 4.91 RBC 3.35 L Hgb 11.5 L 10.3 L Hct 33.8 L 30.2 L MCV 90.1 MCH 30.7 MCHC 34.1 RDW Std Deviation 44.6 RDW Coeff of [place] 13.6 Plt Count 169 MPV 10.1 Immature Gran % (Auto) 0.0 Neut % (Auto) 63.4 Lymph % (Auto) 27.7 [place] % (Auto) 7.5 Eos % (Auto) 1.2 Baso % (Auto) 0.2 Immature Gran # (Auto) 0.00 Neut # (Auto) 3.11 Lymph # (Auto) 1.36 [place] # (Auto) 0.37 Eos # (Auto) 0.06 Baso # (Auto) 0.01 PT 17.7 H INR 1.8 H APTT PTT Ratio Sodium Potassium Chloride Carbon Dioxide Anion Gap BUN Creatinine Est Cr Clr Drug Dosing Est GFR ( Amer) Est GFR (Non-Af Amer) BUN/Creatinine Ratio Glucose Calcium Magnesium Total Bilirubin AST ALT Alkaline Phosphatase Total Protein Albumin Globulin Albumin/Globulin Ratio Blood Type Antibody Screen Diagnostic Findings CTAP 05/29/18 IMPRESSION: 1. There are no acute infectious or inflammatory findings in the abdomen or pelvis. 2. Nonobstructing right renal calculus. 3. There is a small and acute appearing superior endplate compression fracture of T11 with minimally retropulsed fragments and associated paravertebral edema. 4. No acute bony abnormality is identified involving the lumbar spine.
[2018-06-06] MEDS: LISINOPRIL 10 MG TAB PO SCH ×2 (11:57→21:16)
[2018-06-06 12:05] LABS: Hematocrit (blood only) 30.5 % (37-47); Hemoglobin 10.1 g/dL (12.0-16.0)
--- NOTE | 2018-06-06 13:56 | Hospitalist Progress Note ---
Date of Service June 06, 2018 Assessment & Plan (1) Upper GI bleed: Likely secondary to recent NSAID use. Protonix drip in place. Will transition to Protonix 40 mg p.o. twice daily. Awaiting recommendation for endoscopy per GI. No active bleeding, however, patient has not had a bowel mov ement since admission. (2) Compression fracture of T11 vertebra: She has not received her back brace yet. Continue supportive care with Lidoderm patch and Tylenol. NSAIDs contraindicated. (3) Paroxysmal atrial fibrillation: Coagulopathy reversed in setting of active bleed on admission with 10 mg IV vitamin K given. INR is 1.8 today.Continue flecainide and metoprolol for rhythm and rate control, respectively. (4) DVT prophylaxis: SCDs, chemoprophylaxis contraindicated in setting of active bleed. Full Code Dispo-uncertain at this time. Brianna Soto DO [facility] Hospitalist Subjective 78-year-old female with no history of GERD or other GI illness presented with black tarry stools times 2 days after starting Toradol regularly for back pain. She was recently seen in the ER on 05/29 and evaluated by orthospine for a T11 fracture. She was fitted for a brace and sent home with Toradol for pain control. She denies any abdominal pain and is tolerating p.o. Black tarry stools are concerning for upper GI bleed and she was admitted to the hospitalist service and placed on a PPI drip overnight. This morning she is without any abdominal pain denies any hunger. She denies any chronic issues aside from some globus sensation in her throat when she swallows food. She does have a whitish plaque on her tongue that is consistent with thrush, and this may be contributing. She does wear partials, and reports cleaning them thoroughly daily. GI was consulted and awaiting recs regarding the need for inpatient EGD based on how she does clinically. Currently hemodynamically stable and has not had a repeat BM since admission. Physical Exam Vital Signs (Past 24 Hours): Last Vital Signs Temp 37 C 06/06/18 11:19 Pulse 64 06/06/18 11:19 Resp 18 06/06/18 11:19 BP 120/74 06/06/18 11:19 Pulse Ox 96 06/06/18 11:19 CONSTITUTIONAL: WNWD, vitals as above, generally well-appearing EYES: normal conjuctivae, no scleral icterus ENT: MMM RESPIRATORY: clear to auscultation bilaterally, no crackles, rales or wheezes, normal respiratory effort CARDIOVASCULAR: regular rate and rhythm, S1 and 2 heard without murmurs, gallops or rubs, no JVD, no peripheral edema GASTROINTESTINAL: normal bowel sounds, soft, nontender, nondistended MUSCULOSKELETAL: strength 5/5 throughout, head is normocephalic and atraumatic, SKIN: warm and dry NEUROLOGIC: No facial palsy, no dysarthria. CN 2-12 grossly intact, normal cognition, normal speech, no tremor PSYCHIATRIC: alert cooperative and oriented to person, place and time. Results & Data Laboratory Results Short CBC 06/05/18 06/06/18 06/06/18 Range/Units 18:20 00:10 06:39 WBC 6.19 4.91 (4.8-10.8) K/uL Hgb 12.7 11.5 L 10.3 L (12.0-16.0) g/dL Hct 37.1 33.8 L 30.2 L (37-47) % Plt Count 230 169 (130-400) K/uL 06/06/18 Range/Units 11:53 WBC (4.8-10.8) K/uL Hgb 10.1 L (12.0-16.0) g/dL Hct 30.5 L (37-47) % Plt Count (130-400) K/uL BMP 06/05/18 18:20 Sodium 139 Potassium 4.3 Chloride 107 Carbon Dioxide 27 BUN 33 H Creatinine 0.87 Glucose 101 H Calcium 8.3 L Liver Function 06/05/18 Range/Units 18:20 Total Bilirubin 1.3 H (0.2-1) mg/dl AST 14 L (15-37) U/L ALT 22 (12-78) U/L Alkaline Phosphatase 76 (45-117) U/L Albumin 3.5 (3.4-5.0) gm/dl Medications Administered Current Inpatient Medications Acetaminophen (Tylenol) 650 mg PO Q4H PRN PRN Reason: Pain or Fever Stop: 07/06/18 00:01 Amlodipine Besylate (Norvasc) 5 mg PO QAM [facility] Stop: 07/06/18 08:59 Last Admin: 06/06/18 09:48 Dose: 5 mg Documented by: Flecainide Acetate (Tambocor) 100 mg PO BID [facility] Stop: 07/06/18 00:01 Last Admin: 06/06/18 09:48 Dose: 100 mg Documented by: Pantoprazole Sodium 40 mg/ (Dextrose) 100 mls @ 20 mls/hr IV Q5H [facility] Stop: 07/05/18 18:59 Last Admin: 06/06/18 09:55 Dose: 20 mls/hr Documented by: Sodium Chloride (Nss 1000ml) 1,000 mls @ 50 mls/hr IV .Q20H [facility] Stop: 07/06/18 00:01 Last Admin: 06/06/18 00:43 Dose: 50 mls/hr Documented by: Prochlorperazine 5 mg/ Syringe 5 mls @ 5 mls/min IV Q6H PRN PRN Reason: Nausea And Vomiting Stop: 07/06/18 00:01 Lidocaine (Lidoderm 5%) 1 patch TD [facility] Stop: 07/06/18 00:14 Last Admin: 06/06/18 00:44 Dose: 1 patch Documented by: Lisinopril (Zestril) 10 mg PO BID [facility] Stop: 07/06/18 08:59 Last Admin: 06/06/18 11:57 Dose: 10 mg Documented by: Metoprolol Tartrate (Lopressor) 12.5 mg PO BID [facility] Stop: 07/06/18 08:59 Last Admin: 06/06/18 09:45 Dose: 12.5 mg Documented by: Miscellaneous (Remove Lidoderm Patch) 1 ea N/A QAM [facility] Stop: 07/06/18 10:29 Last Admin: 06/06/18 10:30 Dose: 1 ea Documented by: Pravastatin Sodium (Pravachol) 40 mg PO HS [facility] Stop: 07/06/18 20:59 Tramadol HCl (Ultram) 25 mg PO Q4H PRN PRN Reason: Pain Stop: 07/06/18 00:01
[2018-06-06] MEDS: POTASSIUM CHLORIDE 10 MEQ TABCR PO SCH (21:15)
[2018-06-06] MEDS: PRAVASTATIN SOD 40 MG TAB PO SCH (21:17)
[2018-06-06] MEDS: PANTOprazole 40 MG in SYRINGE 0 ML IV SCH (21:19)
[2018-06-07 07:01] LABS: Hematocrit (blood only) 28.7 % (37-47); Hemoglobin 9.7 g/dL (12.0-16.0); Mean Corpuscular Hgb Conc 33.8 g/dL (32-36); Mean Corpuscular Volume 91.1 fL (80-100); Mean Platelet Volume 10.1 fL (7.4-10.4); Platelet Count 140 K/uL (130-400); RDW Coefficient of Variation 13.7 % (11.5-14.5); RDW Standard Deviation 45.5 fL (36.4-46.3); Red Blood Count 3.15 M/uL (4.2-5.4); White Blood Count 4.29 K/uL (4.8-10.8)
[2018-06-07 07:11] LABS: INR 1.2 (0.9-1.1); Prothrombin Time 11.8 Seconds (9.0-12.0)
[2018-06-07 07:37] LABS: BUN Creatinine Ratio 27.5 (10-20); Calcium 7.5 mg/dl (8.5-10.1); Creatinine Clr Calc Pharmacy 71.8 ml/min; Est GFR (African American) 102.6; Est GFR (Non-African American) 88.5; Potassium 3.5 mmol/L (3.5-5.1)
[2018-06-07] MEDS: PANTOprazole 40 MG in SYRINGE 0 ML IV SCH ×2 (08:28→22:20)
[2018-06-07] MEDS ORDERED: PROMETHAZINE HCL 25 MG TAB PO PRN (09:12)
[2018-06-07] MEDS: METOPROLOL TARTRATE 25 MG TAB PO SCH ×2 (09:55→22:20)
[2018-06-07] MEDS: AMLODIPINE BESYLATE 5 MG TAB PO SCH (09:55)
[2018-06-07] MEDS: FLECAINIDE ACETATE 100 MG TABLET PO SCH ×2 (09:56→22:20)
--- NOTE | 2018-06-07 10:56 | Gastroenterology Progress Note ---
Date of Service June 07, 2018 Assessment & Plan (1) Upper GI bleed: Pt is a 78 y/o female w Afib on Coumadin, admitted for reports of black tarry stools. She denies any more BMs now. H/H is slowly decreasing since admitted. Is having nausea but no abd pain. Tolerating only CL diet. Reports a ppetite is low even from prior to admission, lost 10 lbs in last 2 months. Last EGD in 2004 w findings of erosive gastropathy, hiatal hernia and duodenal polyp. - Ok for CL diet today. - Plan for possible EGD tomorrow by Dr. Jones, pls keep NPO after midnight - Monitor H/H and transfuse prn - Protonix 40mg IV BID. Supervising Physician Co-Signing Physician Notes I have personally seen and examined the patient with SUPRIYA Patton. Her note reflects my exam and findings. I agree with her impression and plan. No signs of ongoing active bleeding but given weight loss and occasional dysphagia complaints we will arrange an EGD. Eliseo Jones M.D. Subjective Pt reports continued nausea, didnt' want to eat breakfast this AM only sipping on abdiel higinio. Denies abd pain, or any more BMs. H/H dropped slightly to 9.7/28.7 today. She report family is concerned about her especially low appetite and reported weight loss 10 lbs in 2 months. Physical Exam Vital Signs (Past 24 Hours): Last Vital Signs Temp 36.8 C 06/07/18 07:08 Pulse 66 06/07/18 07:08 Resp 18 06/07/18 07:08 BP 144/71 H 06/07/18 07:08 Pulse Ox 96 06/07/18 07:08 Constitutional: WD/WN, vitals as above well groomed, cooperative and comfortable Eyes: PERRL, conjunctivae normal, anicteric sclerae ENMT: external ear and nose normal, oropharynx normal Respiratory: normal respiratory effort, lungs clear to auscultation Cardiovascular: RRR, no murmur, no edema Gastrointestinal (Abdomen): normal bowel sounds, soft, nontender, no hepatosplenomegaly Skin: no rashes, warm and dry no jaundice Neurologic: Motor/Sensory: no asterixis Psychiatric: A+Ox3, euthymic affect Lymphatic: no lymphedema Results & Data Laboratory Results Laboratory Results - last 48 hr 06/05/18 06/05/18 06/05/18 18:20 18:20 18:20 WBC 6.19 RBC 4.14 L Hgb 12.7 Hct 37.1 MCV 89.6 MCH 30.7 MCHC 34.2 RDW Std Deviation 44.0 RDW Coeff of [place] 13.4 Plt Count 230 MPV 10.8 H Immature Gran % (Auto) 0.2 Neut % (Auto) 69.8 Lymph % (Auto) 23.7 [place] % (Auto) 5.5 Eos % (Auto) 0.5 Baso % (Auto) 0.3 Immature Gran # (Auto) 0.01 Neut # (Auto) 4.32 Lymph # (Auto) 1.47 [place] # (Auto) 0.34 Eos # (Auto) 0.03 Baso # (Auto) 0.02 PT Cancelled INR Cancelled APTT Cancelled PTT Ratio Cancelled Sodium 139 Potassium 4.3 Chloride 107 Carbon Dioxide 27 Anion Gap 5.0 BUN 33 H Creatinine 0.87 Est Cr Clr Drug Dosing 54.3 Est GFR ( Amer) 75.0 Est GFR (Non-Af Amer) 64.7 BUN/Creatinine Ratio 37.7 H Glucose 101 H Calcium 8.3 L Magnesium Total Bilirubin 1.3 H AST 14 L ALT 22 Alkaline Phosphatase 76 Total Protein 7.4 Albumin 3.5 Globulin 3.9 Albumin/Globulin Ratio 0.9 Blood Type Antibody Screen 06/05/18 06/05/18 06/05/18 18:20 20:27 20:27 WBC RBC Hgb Hct MCV MCH MCHC RDW Std Deviation RDW Coeff of [place] Plt Count MPV Immature Gran % (Auto) Neut % (Auto) Lymph % (Auto) [place] % (Auto) Eos % (Auto) Baso % (Auto) Immature Gran # (Auto) Neut # (Auto) Lymph # (Auto) [place] # (Auto) Eos # (Auto) Baso # (Auto) PT 32.2 H INR 3.4 H APTT 35.0 H PTT Ratio 1.3 Sodium Potassium Chloride Carbon Dioxide Anion Gap BUN Creatinine Est Cr Clr Drug Dosing Est GFR ( Amer) Est GFR (Non-Af Amer) BUN/Creatinine Ratio Glucose Calcium Magnesium 2.1 Total Bilirubin AST ALT Alkaline Phosphatase Total Protein Albumin Globulin Albumin/Globulin Ratio Blood Type A Positive Antibody Screen NEGATIVE 06/06/18 06/06/18 06/06/18 00:10 06:39 06:39 WBC 4.91 RBC 3.35 L Hgb 11.5 L 10.3 L Hct 33.8 L 30.2 L MCV 90.1 MCH 30.7 MCHC 34.1 RDW Std Deviation 44.6 RDW Coeff of [place] 13.6 Plt Count 169 MPV 10.1 Immature Gran % (Auto) 0.0 Neut % (Auto) 63.4 Lymph % (Auto) 27.7 [place] % (Auto) 7.5 Eos % (Auto) 1.2 Baso % (Auto) 0.2 Immature Gran # (Auto) 0.00 Neut # (Auto) 3.11 Lymph # (Auto) 1.36 [place] # (Auto) 0.37 Eos # (Auto) 0.06 Baso # (Auto) 0.01 PT 17.7 H INR 1.8 H APTT PTT Ratio Sodium Potassium Chloride Carbon Dioxide Anion Gap BUN Creatinine Est Cr Clr Drug Dosing Est GFR ( Amer) Est GFR (Non-Af Amer) BUN/Creatinine Ratio Glucose Calcium Magnesium Total Bilirubin AST ALT Alkaline Phosphatase Total Protein Albumin Globulin Albumin/Globulin Ratio Blood Type Antibody Screen 06/06/18 06/07/18 06/07/18 11:53 06:31 06:31 WBC 4.29 L RBC 3.15 L Hgb 10.1 L 9.7 L Hct 30.5 L 28.7 L MCV 91.1 MCH 30.8 MCHC 33.8 RDW Std Deviation 45.5 RDW Coeff of [place] 13.7 Plt Count 140 MPV 10.1 Immature Gran % (Auto) Neut % (Auto) Lymph % (Auto) [place] % (Auto) Eos % (Auto) Baso % (Auto) Immature Gran # (Auto) Neut # (Auto) Lymph # (Auto) [place] # (Auto) Eos # (Auto) Baso # (Auto) PT 11.8 INR 1.2 H APTT PTT Ratio Sodium Potassium Chloride Carbon Dioxide Anion Gap BUN Creatinine Est Cr Clr Drug Dosing Est GFR ( Amer) Est GFR (Non-Af Amer) BUN/Creatinine Ratio Glucose Calcium Magnesium Total Bilirubin AST ALT Alkaline Phosphatase Total Protein Albumin Globulin Albumin/Globulin Ratio Blood Type Antibody Screen 06/07/18 06:31 WBC RBC Hgb Hct MCV MCH MCHC RDW Std Deviation RDW Coeff of Kenrick Plt Count MPV Immature Gran % (Auto) Neut % (Auto) Lymph % (Auto) [place] % (Auto) Eos % (Auto) Baso % (Auto) Immature Gran # (Auto) Neut # (Auto) Lymph # (Auto) [place] # (Auto) Eos # (Auto) Baso # (Auto) PT INR APTT PTT Ratio Sodium 144 Potassium 3.5 D Chloride 113 H Carbon Dioxide 26 Anion Gap 6.0 BUN 17 Creatinine 0.60 Est Cr Clr Drug Dosing 71.8 Est GFR ( Amer) 102.6 Est GFR (Non-Af Amer) 88.5 BUN/Creatinine Ratio 27.5 H Glucose 86 Calcium 7.5 L Magnesium Total Bilirubin AST ALT Alkaline Phosphatase Total Protein Albumin Globulin Albumin/Globulin Ratio Blood Type Antibody Screen
--- NOTE | 2018-06-07 13:39 | Hospitalist Progress Note ---
Date of Service June 07, 2018 Assessment & Plan (1) Upper GI bleed: Likely secondary to recent NSAID use. Cont Protonix BID. No bleeding since admission. Some fall in H/H to 9.7/27 but no hemodynamic instability or active bleeding. Nausea this am, otherwise tolerating clears. Plan for EGD tomorrow. NPO p MN. (2) Compression fracture of T11 vertebra: She has not received her back brace yet. Reports no back pain. Continue supportive care with Lidoderm patch and Tylenol. NSAIDs contraindicated. (3) Paroxysmal atrial fibrillation: Coagulopathy reversed in setting of active bleed on admission with 10 mg IV vitamin K given. INR down to 1.2 this am. Continue flecainide and metoprolol for rhythm and rate control, respectively. (4) DVT prophylaxis: SCDs, chemoprophylaxis contraindicated in setting of active bleed. Full Code Dispo-uncertain at this time. Brianna Soto DO [facility] Hospitalist Subjective Doing well Some nausea this am, resolved with PO phenergan tolerating clear liquids no BM since admission denies abdominal pain Physical Exam Vital Signs (Past 24 Hours): Last Vital Signs Temp 36.8 C 06/07/18 07:08 Pulse 64 06/07/18 12:05 Resp 18 06/07/18 07:08 BP 113/66 06/07/18 12:05 Pulse Ox 96 06/07/18 07:08 CONSTITUTIONAL: WNWD, vitals as above, generally well-appearing EYES: normal conjuctivae, no scleral icterus ENT: MMM RESPIRATORY: clear to auscultation bilaterally, no crackles, rales or wheezes, normal respiratory effort CARDIOVASCULAR: regular rate and rhythm, S1 and 2 heard without murmurs, g allops or rubs, no JVD, no peripheral edema GASTROINTESTINAL: normal bowel sounds, soft, nontender, nondistended MUSCULOSKELETAL: strength 5/5 throughout, head is normocephalic and atraumatic, SKIN: warm and dry NEUROLOGIC: No facial palsy, no dysarthria. CN 2-12 grossly intact, normal cognition, normal speech, no tremor PSYCHIATRIC: alert cooperative and oriented to person, place and time. Results & Data Laboratory Results Short CBC 06/07/18 Range/Units 06:31 WBC 4.29 L (4.8-10.8) K/uL Hgb 9.7 L (12.0-16.0) g/dL Hct 28.7 L (37-47) % Plt Count 140 (130-400) K/uL [facility] 06/07/18 06:31 Sodium 144 Potassium 3.5 D Chloride 113 H Carbon Dioxide 26 BUN 17 Creatinine 0.60 Glucose 86 Calcium 7.5 L Medications Administered Current Inpatient Medications Acetaminophen (Tylenol) 650 mg PO Q4H PRN PRN Reason: Pain or Fever Stop: 07/06/18 00:01 Amlodipine Besylate (Norvasc) 5 mg PO QAM [facility] Stop: 07/06/18 08:59 Last Admin: 06/07/18 09:55 Dose: 5 mg Documented by: Flecainide Acetate (Tambocor) 100 mg PO BID [facility] Stop: 07/06/18 00:01 Last Admin: 06/07/18 09:56 Dose: 100 mg Documented by: Sodium Chloride (Nss 1000ml) 1,000 mls @ 50 mls/hr IV .Q20H [facility] Stop: 07/06/18 00:01 Last Admin: 06/06/18 21:08 Dose: 50 mls/hr Documented by: Pantoprazole Sodium 40 mg/ (Syringe) 10 mls @ 5 mls/min IV BID [facility] Stop: 07/06/18 20:59 Last Admin: 06/07/18 08:28 Dose: 5 mls/min Documented by: Lidocaine (Lidoderm 5%) 1 patch TD HS [facility] Stop: 07/06/18 00:14 Last Admin: 06/06/18 21:10 Dose: 1 patch Documented by: Lisinopril (Zestril) 10 mg PO BID [facility] Stop: 07/06/18 08:59 Last Admin: 06/06/18 21:16 Dose: 10 mg Documented by: Metoprolol Tartrate (Lopressor) 12.5 mg PO BID [facility] Stop: 07/06/18 08:59 Last Admin: 06/07/18 09:55 Dose: 12.5 mg Documented by: Miscellaneous (Remove Lidoderm Patch) 1 ea N/A QAM [facility] Stop: 07/06/18 10:29 Last Admin: 06/07/18 09:56 Dose: 1 ea Documented by: Potassium Chloride (Klor-Con M10) 10 meq PO QPM [facility] Stop: 07/06/18 20:59 Last Admin: 06/06/18 21:15 Dose: 10 meq Documented by: Pravastatin Sodium (Pravachol) 40 mg PO HS [facility] Stop: 07/06/18 20:59 Last Admin: 06/06/18 21:17 Dose: 40 mg Documented by: Promethazine HCl (Phenergan) 25 mg PO Q6H PRN PRN Reason: Nausea And Vomiting Stop: 07/07/18 09:11 Last Admin: 06/07/18 09:55 Dose: 25 mg Documented by: Tramadol HCl (Ultram) 25 mg PO Q4H PRN PRN Reason: Pain Stop: 07/06/18 00:01
[2018-06-07] MEDS: LISINOPRIL 10 MG TAB PO SCH ×2 (15:09→22:21)
[2018-06-07] MEDS: SODIUM CHLORIDE 0.9% 1000ML 1,000 ML IV SCH (15:12)
[2018-06-07] MEDS: LIDOCAINE 5% 1 PATCH TD SCH (22:18)
[2018-06-07] MEDS: POTASSIUM CHLORIDE 10 MEQ TABCR PO SCH (22:21)
[2018-06-07] MEDS: PRAVASTATIN SOD 40 MG TAB PO SCH (22:21)
[2018-06-08 06:16] LABS: Hematocrit (blood only) 27.6 % (37-47); Hemoglobin 9.3 g/dL (12.0-16.0)
[2018-06-08] MEDS: LISINOPRIL 10 MG TAB PO SCH (07:22)
[2018-06-08] MEDS: METOPROLOL TARTRATE 25 MG TAB PO SCH (07:22)
[2018-06-08] MEDS: AMLODIPINE BESYLATE 5 MG TAB PO SCH (07:23)
[2018-06-08] MEDS: FLECAINIDE ACETATE 100 MG TABLET PO SCH (07:24)
--- NOTE | 2018-06-08 07:33 | Anesthesiology Consultation ---
Date of Service June 08, 2018 Assessment & Plan Chart Review Chart Review: Acceptable Risk for Surgery, Patient NOT seen in Pre Admission Testing and entry writer initiated History Surgery Operation Date: 06/08/18 08:30 Proposed Procedures p Esophagogastroduodenoscopy Dr Robert Jones Height/Weight Height: 5 ft 5 in Weight: 65.9 kg Allergies Allergy/AdvReac Type Severity Reaction Status Date / Time Penicillins Allergy Unknown RASH Verified 05/29/18 09:51 Medications Home Medications Medication Instructions Recorded Confirmed Last Taken alendronate 70 mg PO WK 05/29/18 06/05/18 06/03/18 amlodipine 5 mg PO QAM 05/29/18 06/05/18 06/05/18 08:45 cholecalciferol (vitamin D3) 1,000 units PO QAM 05/29/18 06/05/18 06/05/18 08:45 [Vitamin D3] flecainide 100 mg PO BID 05/29/18 06/05/18 06/05/18 08:45 lisinopril 10 mg PO BID 05/29/18 06/05/18 06/05/18 08:45 pravastatin 40 mg PO HS 05/29/18 06/05/18 06/04/18 warfarin 2.5 mg PO 6XWK 05/29/18 06/05/18 06/05/18 16:10 2.5 MG esomeprazole magnesium 40 mg PO DAILY 06/05/18 06/05/18 Unknown metoprolol tartrate 12.5 mg PO BID 06/05/18 06/05/18 06/05/18 08:45 potassium chloride [Klor-Con M10] 10 meq PO QPM 06/05/18 06/05/18 06/04/18 potassium chloride [Klor-Con M10] 20 meq PO QAM 06/05/18 06/05/18 06/05/18 08:45 warfarin 5 mg PO WK 06/05/18 06/05/18 06/03/18 Active Medications Generic Name Dose Route Start Last Admin Trade Name Freq PRN Reason Stop Dose Admin Amlodipine Besylate 5 mg 06/06/18 09:00 06/08/18 07:23 Norvasc PO 07/06/18 08:59 5 mg QAM CURLY Administration Flecainide Acetate 100 mg 06/06/18 00:02 06/08/18 07:24 Tambocor PO 07/06/18 00:01 100 mg BID CURLY Administration Sodium Chloride 1,000 mls @ 50 mls/hr 06/06/18 00:02 06/07/18 15:12 Nss 1000ml IV 07/06/18 00:01 50 mls/hr .Q20H CURLY Administration Pantoprazole Sodium 40 mg/ 10 mls @ 5 mls/min 06/06/18 21:00 06/07/18 22:20 Syringe IV 07/06/18 20:59 5 mls/min BID CURLY Administration Lidocaine 1 patch 06/06/18 00:15 06/07/18 22:18 Lidoderm 5% TD 07/06/18 00:14 1 patch HS CURLY Administration Lisinopril 10 mg 06/06/18 09:00 06/08/18 07:22 Zestril PO 07/06/18 08:59 10 mg BID CURLY Administration Metoprolol Tartrate 12.5 mg 06/06/18 09:00 06/08/18 07:22 Lopressor PO 07/06/18 08:59 12.5 mg BID CURLY Administration Miscellaneous 1 ea 06/06/18 10:30 06/08/18 07:24 Remove Lidoderm Patch N/A 07/06/18 10:29 1 ea QAM CURLY Administration Potassium Chloride 10 meq 06/06/18 21:00 06/07/18 22:21 Klor-Con M10 PO 07/06/18 20:59 10 meq QPM CURLY Administration Pravastatin Sodium 40 mg 06/06/18 21:00 06/07/18 22:21 Pravachol PO 07/06/18 20:59 40 mg HS CURLY Administration Promethazine HCl 25 mg 06/07/18 09:12 06/07/18 09:55 Phenergan PO 07/07/18 09:11 25 mg Q6H PRN Administration Nausea And Vomiting Past Medical History Medical History Compression fracture of T11 vertebra (Acute) Upper GI bleed (Acute) HTN (hypertension) Atrial fibrillation GERD (gastroesophageal reflux disease) (Chronic) CKD (chronic kidney disease) stage 3, GFR 30-59 ml/min (Chronic) Obstructive sleep apnea (Chronic) Hiatal hernia Past Surgical History Surgical History S/P cholecystectomy Social History Smoking Status: Never smoker Do You Dip or Chew Tobacco: No Hx Alcohol Use: No Hx Substance Use: No Physical Exam Vital Signs Last Vital Signs Temp 37 C 06/08/18 03:58 Pulse 60 06/08/18 03:58 Resp 18 06/08/18 03:58 BP 125/65 06/08/18 03:58 Pulse Ox 97 06/08/18 03:58 Testing Electrocardiogram Date: 06/05/18 Findings: + NSR @ (72) Left axis deviation, Nonspecific T wave abnormality, When compared with ECG of 20-MAR-2015 07:13, No significant change Laboratory Results 06/08/18 05:40 06/07/18 06:31 Blood Type A Positive 06/05/18 20:27 Antibody Screen NEGATIVE 06/05/18 20:27 PT 11.8 Seconds (9.0-12.0) 06/07/18 06:31 INR 1.2 (0.9-1.1) H 06/07/18 06:31 APTT 35.0 Seconds (21.0-31.0) H 06/05/18 20:27
[2018-06-08] MEDS: PANTOprazole 40 MG in SYRINGE 0 ML IV SCH (08:27)
--- NOTE | 2018-06-08 10:56 | History & Physical Report ---
Date of Service June 08, 2018 Assessment & Plan (1) Anemia due to GI blood loss: stable for EGD History of Present Illness Chief Complaint: melena and gi bleed Primary Care Provider: Gregory Goodson pt with hx of anemia and gi bleed for EGD Allergies Allergy/AdvReac Type Severity Reaction Status Date / Time Penicillins Allergy Unknown RASH Verified 06/08/18 09:54 Home Medications Home Medications Medication Instructions Recorded Confirmed Type alendronate 70 mg PO WK 05/29/18 06/05/18 History amlodipine 5 mg PO QAM 05/29/18 06/05/18 History cholecalciferol (vitamin D3) 1,000 units PO QAM 05/29/18 06/05/18 History [Vitamin D3] flecainide 100 mg PO BID 05/29/18 06/05/18 History lisinopril 10 mg PO BID 05/29/18 06/05/18 History pravastatin 40 mg PO HS 05/29/18 06/05/18 History warfarin 2.5 mg PO 6XWK 05/29/18 06/05/18 History esomeprazole magnesium 40 mg PO DAILY 06/05/18 06/05/18 History metoprolol tartrate 12.5 mg PO BID 06/05/18 06/05/18 History potassium chloride [Klor-Con M10] 10 meq PO QPM 06/05/18 06/05/18 History potassium chloride [Klor-Con M10] 20 meq PO QAM 06/05/18 06/05/18 History warfarin 5 mg PO WK 06/05/18 06/05/18 History Past Med/Surg History Medical History Compression fracture of T11 vertebra (Acute) Upper GI bleed (Acute) HTN (hypertension) Atrial fibrillation GERD (gastroesophageal reflux disease) (Chronic) CKD (chronic kidney disease) stage 3, GFR 30-59 ml/min (Chronic) Obstructive sleep apnea (Chronic) Hiatal hernia Surgical History S/P cholecystectomy Social History Preferred Language: Czech Communication Ability: Effective [employer]oir [employer] Manager Required: No Beliefs That Will Affect Care: None Current Living Situation: Spouse Other Information That Helps Us Care for You: No Feels Safe at Home: Yes Smoking Status: Never smoker Hx Alcohol Use: No Hx Substance Use: No Physical Exam Vital Signs (Past 24 Hours): Last Vital Signs Temp 36.8 C 06/08/18 09:49 Pulse 61 06/08/18 09:49 Resp 18 06/08/18 09:49 BP 141/72 H 06/08/18 09:49 Pulse Ox 97 06/08/18 09:49 Constitutional: WD/WN, vitals as above Respiratory: normal respiratory effort, lungs clear to auscultation Cardiovascular: RRR, no murmur, no edema Gastrointestinal (Abdomen): normal bowel sounds, soft, nontender, no hepatosplenomegaly
[2018-06-08] MEDS ORDERED: LIDOCAINE HCL 2% 2 ML VIAL/AMP(20MG/ML) INFIL ONE (11:09)
[2018-06-08] MEDS ORDERED: ONDANSETRON INJ 2 MG/ML 2 ML VIAL ONE (11:09)
[2018-06-08] MEDS ORDERED: PROPOFOL IV EMULSION 10 MG/ML 20 ML VIAL IV ONE (11:09)
--- NOTE | 2018-06-08 11:14 | GI REPORT ---
Patient Name: Marissa Uribe Procedure Date: 06/08/2018 10:51 AM Date of : 1940 Admit Type: Inpatient Age: 78 Gender: Female Attending MD: Eliseo Jones MD Procedure: Upper GI endoscopy Providers: Eliseo Jnoes MD Referring MD: Brianna Solares Do Indications: Acute post hemorrhagic anemia, Melena Medicines: See the Anesthesia note for documentation of the administered medications Complications: No immediate complications. Estimated Blood Loss: Estimated blood loss: none. Procedure: Pre-Anesthesia Assessment: - Prior to the procedure, a History and Physical was performed, and patient medications, allergies and sensitivities were reviewed. The patient's tolerance of previous anesthesia was reviewed. - The risks and benefits of the procedure and the sedation options and risks were discussed with the patient. All questions were answered and informed consent was obtained. - Patient identification and proposed procedure were verified prior to the procedure by the physician and the nurse. The procedure was verified in the pre-procedure area. - Pre-procedure physical examination revealed no contraindications to sedation. - After reviewing the risks and benefits, the patient was deemed in satisfactory condition to undergo the procedure. After obtaining informed consent, the endoscope was passed under direct vision. Throughout the procedure, the patient's blood pressure, pulse, and oxygen saturations were monitored continuously. The Endoscope was introduced through the mouth, and advanced to the third part of duodenum. The upper GI endoscopy was accomplished without difficulty. The patient tolerated the procedure well. Findings: The esophagus was normal. Multiple, small non-bleeding erosions were found in the gastric antrum. There were no stigmata of recent bleeding. The examined duodenum was normal. The cardia and gastric fundus were normal on retroflexion. Impression: - Normal esophagus. - Non-bleeding erosive gastropathy c/w with healing NSAID related ulcer disease. - Normal examined duodenum. - No specimens collected. Recommendation: - Return patient to hospital [facility] for ongoing care. - Pt should remian on a PPI as an out patient. - Minimize NSAID use. Eliseo Jones M.D. Eliseo Jones MD 06/08/2018 11:13:33 AM This report has been signed electronically. Note Initiated On: 06/08/2018 10:51 AM Number of Addenda: 0 I attest to the content of the Intraoperative Record and orders documented therein, exceptions below {[id number]}
[2018-06-08] MEDS: SODIUM CHLORIDE 0.9% 1000ML 1,000 ML IV SCH (12:06)
--- NOTE | 2018-06-08 12:17 | Anesthesiology Progress Note ---
Date of Service June 08, 2018 Anesthesia Post Procedure Vital Signs Vital Signs: Temp Pulse Pulse Resp BP BP Pulse Ox 06/08/18 11:41 61 18 127/57 L 96 06/08/18 11:25 61 16 125/56 L 98 06/08/18 11:10 61 16 100/43 L 99 06/08/18 09:49 36.8 C 61 18 141/72 H 97 06/08/18 07:00 36.9 C 68 68 18 134/71 96 06/08/18 03:58 37 C 60 18 125/65 97 06/07/18 23:00 36.7 C 61 18 130/75 95 06/07/18 22:00 153/71 H 06/07/18 19:32 36.9 C 65 17 154/78 H 96 06/07/18 14:58 36.8 C 62 18 123/71 96 Pain Intensity Back: Pain Intensity: 7 Notes Mental Status: alert / awake / arousable and participated in evaluation Nausea / Vomiting: adequately controlled Pain: adequately controlled Airway Patency, RR, SpO2: stable & adequate BP & HR: stable & adequate Hydration State: stable & adequate Anesthetic Complications: no major complications apparent and Pt Satisfied with anesthetic care
[2018-06-08 15:32] VITALS: BP 136/69; TEMP 98.6; O2SAT 95
[2018-06-08 18:30] VITALS: PULSE 68
--- NOTE | 2018-06-16 14:06 | Discharge Summary ---
Date of Service June 16, 2018 Admission HPI Per Admitting Provider Medical history significant for for paroxysmal AF sp ablation on anticoagulation, HTN, skin cancer, TISHA. Recent confinement February 2015 for recurrent atrial fibrillation. Flecainide added to patient's regimen. Patient seen at the ER last week for 3 weeks history of lower back injury noted after carrying a 60 pound tote at home. CT lumbar spine showed small and acute appearing superior endplate compression fracture of T11 with retropulsed segments and associated paravertebral edema. Local orthopedic med specialist seen at the office last week. Back brace fitted and Toradol prescribed for pain. 2 days ago, patient noted loose black starry stools with minimal abdominal cramping, no hematemesis. Toradol stopped by patient. Patient denies CP, S OB. PCP recommended ER visit if with worsening symptoms. At the ER, IV PPI started for UGI B. Admission Exam Per Admitting Provider Temp 36.9 C 06/05/18 18:53 Pulse 75 06/05/18 21:30 Resp 22 06/05/18 21:30 BP 152/98 H 06/05/18 21:30 Pulse Ox 96 06/05/18 21:30 Physical Exam: GENERAL: Comfortable, pleasant, no respiratory distress SKIN: Pallor, warm HEENT: Pale palpebral conjunctivae, no ptosis, dry buccal mucosa NECK : Supple, no tenderness CHEST : CTA, no tenderness HEART : RRR, no obvious murmurs ABDOMEN: Some distention, minimal epigastric tenderness EXTREMITIES : No LE swelling/tenderness, no other conspicuous deformities noted NEUROLOGIC : Coherent, no facial asymmetry, no other gross focality Principal Diagnosis Anemia due to GI blood loss in the setting of recent NSAID use Discharge Data Allergies Allergy/AdvReac Type Severity Reaction Status Date / Time Penicillins Allergy Unknown RASH Verified 06/08/18 09:54 Consultations 06/05/18 20:38 ED Decision to Admit Stat 06/06/18 00:02 Consult Gastroenterology Routine Procedures Performed Operation Date: 06/08/18 08:30 Actual Procedures p Esophagogastroduodenoscopy - Eliseo Jones Hospital Course (1) Upper GI bleed: She was admitted to the Hospitalist service and H&H was trended the following morning. There was some fall to 9.7/27 but no hemodynamic instability was noted and no active bleeding was observed. There was some nausea the following morning. GI was consulted and plan for endoscopy the following day. As she has paroxysmal atrial fibrillation and was on Coumadin, her coagulopathy was reversed in the setting of active bleed on admission with 10 mg IV vitamin K given. INR trended down to 1.2 following morning. Flecainide and metoprolol were continued for rhythm and rate control, respectively. On 06/08 she underwent an upper endoscopy revealing a normal esophagus, nonbleeding erosive gastropathy consistent with healed NSAID-related ulcer disease, normal examined duodenum. She was returned to the hospital [facility] and should remain on a PPI as an outpatient indefinitely. NSAID use was recommended to be minimal moving forward. At time of discharge she was hemodynamically stable and afebrile. She was tolerating solid food, physical exam was unremarkable. She was discharged in stable condition with close primary care follow-up. Total Time Total Time Spent Total Time Spent (In Minutes): 60 Total Time Includes: Examination of the Patient, Discharge Planning, Medication Reconciliation and Communication With Other Providers Discharge Plan Discharge Items Patient Disposition: Home - Self-Care Reason For Visit: UGIB Discharge Diagnosis: Anemia due to GI blood loss in the setting of recent NSAID use Condition: Good Discharge Goals: Improve disease control Activity: Resume your previous activity Non-emergency contact: Primary Care Provider Call non-emergency contact if: you have any medication questions, your symptoms worsen, your pain is not controlled and you have a fever Follow-up/Referrals: Gregroy Goodson MD [Primary Care Provider] - Diet: Heart Healthy Addtl Provider Instructions: Please take all medications as instructed below. You underwent an endoscopy that revealed multiple non-bleeding erosions found in your stomach. This is likely related to recent Toradol use. It is recommended that she minimize NSAID use. These are drugs such as Motrin, ibuprofen, Aleve, naproxen. As a result of the erosions seen, you will need to take NEXIUM every day. While you are in the hospital your Coumadin level was reversed. Please start taking 5 mg of warfarin every day and have your INR checked again within the next 2 days and adjusted through your anticoagulation clinic. It is recommended that you follow-up with primary care within one week of discharge. Date & Time 06/15/2018 2:20 PM Provider Gregory Goodson MD Department Internal Medicine [facility] It was a pleasure taking care of you! Please call if you have any questions or problems. You can reach a [facility] hospitalist on duty at [facility] 24 hours a day by calling [phone]. Take care of yourself. DO [facility] Hospitalist Prescriptions: New warfarin 5 mg tablet 5 mg PO DAILY Qty: 30 RF: 0 Continued pravastatin 40 mg tablet 40 mg PO HS RF: 0 alendronate 70 mg tablet 70 mg PO WK RF: 0 amlodipine 5 mg tablet 5 mg PO QAM RF: 0 lisinopril 10 mg tablet 10 mg PO BID RF: 0 flecainide 100 mg tablet 100 mg PO BID RF: 0 cholecalciferol (vitamin D3) [Vitamin D3] 1,000 unit Capsule 1,000 units PO QAM RF: 0 esomeprazole magnesium 40 mg capsule,delayed release(DR/EC) 40 mg PO DAILY RF: 0 potassium chloride [Klor-Con M10] 10 mEq tablet,ER particles/crystals 20 meq PO QAM RF: 0 potassium chloride [Klor-Con M10] 10 mEq tablet,ER particles/crystals 10 meq PO QPM RF: 0 metoprolol tartrate 25 mg Tablet 12.5 mg PO BID RF: 0 Discontinued warfarin 2.5 mg tablet 2.5 mg PO 6XWK RF: 0 warfarin 2.5 mg tablet 5 mg PO WK RF: 0 Stand-Alone Forms: Call Back Authorization, My [facility] Discharge Orders: Discharge Order (Routine); Ordered 06/08/18 Ordered By: Brianna Soto Admission Data Admit Date/Time: 06/05/18 22:50 Attending Provider: Brianna Soto Admit Provider: Brianna Soto Primary Care Provider: Gregory Goodson Other Providers: Eliseo Jones Service: Telemetry Other Interventions: Discharge Summary Assessment (RN) Last Done: 06/08/18 18:28 DC Date/Time DO NOT enter until pt leaves facility: 06/08/18 18:38
--- NOTE | 2018-06-19 06:39 | Coding Query ---
CODING QUERY To promote full compliance with coding requirements relating to patient care, provider participation is requested in all cases of tape sewer uncertainty. Please assist us with the question(s) below: Coding Question(s): There is documentation of Coumadin Coagulopathy on the H&P and throughout the record and documentation of reversal of the Coagulopathy with Vitamin K and holding the Coumadin for now. The H&P documents Coagulopathy causing UGIB and the Discharge Summary documents the Acute Blood Loss Anemia in the setting of recent NSAID use and documents that the coagulopathy was reversed in the setting of active bleed on admission. Please clarify below, in your clinical opinion, regarding the the Coagulopathy. (x ) Coumadin Coagulopathy was a contributing factor in causing the GI Bleeding ( ) Coumadin Coagulopathy was Not a contributing factor in causing the GI Bleeding Physician's Response(s): Thank you Hamida Vega Principal Diagnosis: "that condition established after study, to be chiefly responsible for occasioning the admission of the patient to the hospital for care." Co-Existing Principal Diagnosis: "when two or more diagnoses equally meet the criteria for principal diagnosis as determined by the circumstances of admission, diagnostic work up, and/or therapy provided, and the Alphabetic Index, Tabular List, or another coding guideline does not provide sequencing direction, any one of the diagnoses may be sequenced first." "When the physician has documented what appears to be a current diagnosis in the body of the record, but has not included the diagnosis in the final diagnostic statement, the physician should be asked whether the diagnosis should be added." (Source Coding Clinic 2 QTR90. p3-4) JALEN
== END 2018-06-08 18:38 | disposition home or self-care (01) | DRG 813 ==
LOC: ED 18:47 → 2N 22:50 → SUATTDRO 22:50 → 2N 23:19

== ENCOUNTER 2021-09-05 21:36 | Inpatient (IN) ==
[2021-09-05] MEDS ORDERED: fentaNYL citrate 100 MCG/2 ML VIAL IV ONE ×2 (22:12→23:53)
--- NOTE | 2021-09-05 22:15 | Emergency Department Note ---
History of Present Illness General Chief complaint: Fall Stated complaint: FALL/ HIT HEAD/rt. HIP PAIN Time Seen by Provider: 09/05/21 21:56 Source: patient Mode of arrival: ambulatory Limitations: no limitations History of Present Illness Maximum Pain Intensity: 6 This patient Comes in after suffering mechanical fall. She states she was walking in and tripped on her cat. She landed on her left side she has right hip pain and is unable to extend the knee she denies actually knee pain itself. She think she hit her head but denies any headache or loss of conscious she was feeling well prior no neck pain denies chest pain shortness of breath or abdominal pain no no chest or abdominal trauma. Did receive fentanyl and Zofran on route and said that helped. She appears comfortable except for when I try to move her hip or knee. On chronic anticoagulation for A. fib Home Medications Medication Instructions Recorded Confirmed Type amlodipine 5 mg tablet 5 mg PO QAM 05/29/18 09/06/21 History flecainide 100 mg tablet 100 mg PO BID 05/29/18 09/06/21 History pravastatin 40 mg tablet 40 mg PO HS 05/29/18 09/06/21 History potassium chloride 10 mEq 10 meq PO QAM 06/05/18 09/06/21 History tablet,extended release(part/cryst) (Klor-Con M) lansoprazole 30 mg capsule,delayed 30 mg PO DAILYBB 04/10/21 09/06/21 History release lisinopril 20 mg tablet 20 mg PO BID 09/05/21 09/06/21 History metoprolol tartrate 50 mg tablet 25 mg PO BID 09/05/21 09/06/21 History spironolactone 25 mg tablet 12.5 mg PO DAILY 09/05/21 09/06/21 History warfarin 2.5 mg tablet See Rx Instructions .ROUTE .COMPLEX 09/05/21 09/06/21 History calcium carbonate 600 mg calcium 600 mg PO DAILY 09/06/21 09/06/21 History (1,500 mg) tablet (Calcium) cholecalciferol (vitamin D3) 50 50 mcg PO DAILY 09/06/21 09/06/21 History mcg (2,000 unit) tablet (Vitamin D3) Allergies Allergy/AdvReac Type Severity Reaction Status Date / Time Penicillins Allergy Unknown RASH Verified 09/06/21 00:35 Past Med/Surg History Medical History (Updated 09/06/21 @ 02:52 by Davon Silva MD) Atrial fibrillation CKD (chronic kidney disease) stage 3, GFR 30-59 ml/min Compression fracture of T11 vertebra GERD (gastroesophageal reflux disease) Hiatal hernia HTN (hypertension) Obstructive sleep apnea Upper GI bleed Surgical History S/P cholecystectomy Social History Smoking Status: Never smoker Hx Alcohol Use: No Hx Substance Use: No Preferred Language: Sudanese Communication Ability: Effective Visual Impairment: No Limitations Hearing Ability: Normal Guard Lieutenant Required: No Beliefs That Will Affect Care: None Current Living Situation: Spouse Feels Safe at Home: Yes Assistive Devices: None Review of Systems A total of 10 systems reviewed and were otherwise negative Physical Exam Vital Signs Vital Signs - 24 hr 09/05/21 21:50 09/05/21 22:39 09/06/21 00:20 Temperature 37.0 C Temperature Source Oral Pulse Rate 66 Pulse Rate [Apical] 72 Pulse Rate from SpO2 Sensor Pulse Rhythm Regular Respiratory Rate 16 20 Respiratory Effort / Characteristics Non-Labored Non-Labored Spontaneous Respiratory Depth Normal Blood Pressure 146/60 H Blood Pressure [Right Arm] 127/64 Blood Pressure Mean 88 Blood Pressure Mean [Right Arm] 85 Blood Pressure Position Left Lateral Pulse Oximetry 96 93 94 Oxygen Delivery Method Room Air Room Air Room Air Oxygen Flow Rate Sepsis Recent Fever Within 48 Hours No Sepsis New/Unexplained Change in Mental Status No Sepsis Action Taken by Nursing No Action Required 09/06/21 01:00 09/06/21 01:50 09/06/21 02:00 Temperature Temperature Source Pulse Rate 68 65 Pulse Rate [Apical] Pulse Rate from SpO2 Sensor 68 66 Pulse Rhythm Respiratory Rate 17 22 Respiratory Effort / Characteristics Respiratory Depth Blood Pressure 123/65 130/68 Blood Pressure [Right Arm] Blood Pressure Mean 84 88 Blood Pressure Mean [Right Arm] Blood Pressure Position Pulse Oximetry 93 89 L 98 Oxygen Delivery Method Room Air Room Air Nasal Cannula Oxygen Flow Rate 2 Sepsis Recent Fever Within 48 Hours Sepsis New/Unexplained Change in Mental Status Sepsis Action Taken by Nursing 09/06/21 02:30 Temperature Temperature Source Pulse Rate 63 Pulse Rate [Apical] Pulse Rate from SpO2 Sensor 63 Pulse Rhythm Respiratory Rate 18 Respiratory Effort / Characteristics Respiratory Depth Blood Pressure Blood Pressure [Right Arm] Blood Pressure Mean Blood Pressure Mean [Right Arm] Blood Pressure Position Pulse Oximetry 96 Oxygen Delivery Method Nasal Cannula Oxygen Flow Rate 2 Sepsis Recent Fever Within 48 Hours Sepsis New/Unexplained Change in Mental Status Sepsis Action Taken by Nursing General: Well developed well nourished female who is laying on her left side. Complain of right hip pain. In no acute distress, breathing comfortably on room air. Normal speech alert on x3 answering questions per HEENT: Normal cephalic atraumatic. Pupils are equal round and reactive to light. Extraocular movements are intact. Oropharynx is pink with moist mucous membranes. No swelling of the mouth lips or tongue. Neck: Supple with a midline trachea. No meningeal signs or stiffness, no JVD or bruits. No Stridor. Chest: Clear to auscultation bilaterally. No wheezes or rhonchi. No increased work of breathing. Heart: Regular rate and rhythm without murmurs or gallops. Abdomen: Soft nontender, nondistended without rebound guarding or rigidity. Extremities: No cyanosis clubbing or edema. No calf tenderness or assymetry no swelling or deformity will the right hip. When I try to extend the knee she has muscle spasm up towards the hip and says she has pain and cannot do it. She has good distal pulses. The knee itself is not red or warm and appears nonswollen and anatomically intact and in place. Spine/Back. Non tender to palpation. No CVA tenderness Skin: Good turgor without rashes. Neurologic exam: Cranial nerves two through 12 are intact. Motor and sensation are intact and symmetrical throughout. Course Administered Medications Discontinued Medications Fentanyl Citrate (Fentanyl Citrate 100 Mcg/2 Ml Vial) 25 mcg IV NOW ONE Stop: 09/05/21 22:13 Last Admin: 09/05/21 22:38 Dose: 25 mcg Documented by: [id number] Fentanyl Citrate (Fentanyl Citrate 100 Mcg/2 Ml Vial) 25 mcg IV NOW ONE Stop: 09/05/21 23:54 Last Admin: 09/06/21 00:27 Dose: 25 mcg Documented by: [id number] Acetaminophen (irmev) 65 mls @ 200 mls/hr IV NOW ONE; Protocol Stop: 09/06/21 00:12 Last Infusion: 09/06/21 00:39 Dose: 0 mls/hr Documented by: [id number] Admin: 09/06/21 00:26 Dose: 200 mls/hr Documented by: [id number] Medical Decision Making Differential Diagnosis Hip fracture, dislocation, knee injury, musculoskeletal, head injury, spine injury, traumatic injuries, electrolyte or metabolic abnormality. Laboratory Data Attestation: I reviewed the patient's lab results. Result diagrams: 09/05/21 22:36 09/05/21 22:36 Lab Results 09/05/21 09/05/21 09/05/21 Range/Units 22:36 22:36 22:36 WBC 8.75 (4.8-10.8) K/uL RBC 4.02 L (4.2-5.4) M/uL Hgb 12.3 (12.0-16.0) g/dL Hct 36.9 L (37-47) % MCV 91.8 (80-100) fL MCH 30.6 (25-34) pg MCHC 33.3 (32-36) g/dL RDW Std Deviation 45.2 (36.4-46.3) fL RDW Coeff of Kenrick 13.4 (11.5-14.5) % Plt Count 179 (130-400) K/uL MPV 10.8 H (7.4-10.4) fL Immature Gran % (Auto) 0.2 % Neut % (Auto) 80.6 % Lymph % (Auto) 12.8 % [place] % (Auto) 5.3 % Eos % (Auto) 0.9 % Baso % (Auto) 0.2 % Neut # (Auto) 7.05 H (1.4-6.5) K/uL Lymph # (Auto) 1.12 L (1.2-3.4) K/uL [place] # (Auto) 0.46 (0.11-0.59) K/uL Eos # (Auto) 0.08 (0-0.5) K/uL Baso # (Auto) 0.02 (0-0.2) K/uL Immature Gran # (Auto) 0.02 (0.00-0.02) K/uL PT 14.1 H (9.0-12.0) Seconds INR 1.3 H (0.9-1.1) APTT 28.7 (21.0-31.0) Seconds PTT Ratio 1.0 Sodium 137 (136-145) mmol/L Potassium 4.4 (3.5-5.1) mmol/L Chloride 103 (98-107) mmol/L Carbon Dioxide 28 (21-32) mmol/L Anion Gap 6 (3-11) BUN 21 (6-23) mg/dl Creatinine 1.01 (0.6-1.2) mg/dl Est Cr Clr Drug Dosing Not Reportable Est GFR ( Amer) 61.3 ml/min Est GFR (Non-Af Amer) 52.9 ml/min BUN/Creatinine Ratio 20.8 H (10-20) Glucose 141 H (70-99(Fasting)) mg/dl Calcium 8.6 (8.5-10.1) mg/dl Total Bilirubin 1.0 (0.2-1.0) mg/dl AST 17 (13-39) U/L ALT 10 (7-52) U/L Alkaline Phosphatase 38 (34-104) U/L Total Protein 6.8 (6.0-8.3) gm/dl Albumin 3.9 (3.4-5.0) gm/dl Globulin 2.9 (2.5-4.0) gm/dl Albumin/Globulin Ratio 1.3 (0.9-2) TSH (0.300-4.500) uIu/ml SARS-CoV-2, RNA, NAAT (NEGATIVE) 09/05/21 09/06/21 Range/Units 22:36 00:37 WBC (4.8-10.8) K/uL RBC (4.2-5.4) M/uL Hgb (12.0-16.0) g/dL Hct (37-47) % MCV (80-100) fL MCH (25-34) pg MCHC (32-36) g/dL RDW Std Deviation (36.4-46.3) fL RDW Coeff of Kenrick (11.5-14.5) % Plt Count (130-400) K/uL MPV (7.4-10.4) fL Immature Gran % (Auto) % Neut % (Auto) % Lymph % (Auto) % [place] % (Auto) % Eos % (Auto) % Baso % (Auto) % Neut # (Auto) (1.4-6.5) K/uL Lymph # (Auto) (1.2-3.4) K/uL [place] # (Auto) (0.11-0.59) K/uL Eos # (Auto) (0-0.5) K/uL Baso # (Auto) (0-0.2) K/uL Immature Gran # (Auto) (0.00-0.02) K/uL PT (9.0-12.0) Seconds INR (0.9-1.1) APTT (21.0-31.0) Seconds PTT Ratio Sodium (136-145) mmol/L Potassium (3.5-5.1) mmol/L Chloride (98-107) mmol/L Carbon Dioxide (21-32) mmol/L Anion Gap (3-11) BUN (6-23) mg/dl Creatinine (0.6-1.2) mg/dl Est Cr Clr Drug Dosing Est GFR ( Amer) ml/min Est GFR (Non-Af Amer) ml/min BUN/Creatinine Ratio (10-20) Glucose (70-99(Fasting)) mg/dl Calcium (8.5-10.1) mg/dl Total Bilirubin (0.2-1.0) mg/dl AST (13-39) U/L ALT (7-52) U/L Alkaline Phosphatase (34-104) U/L Total Protein (6.0-8.3) gm/dl Albumin (3.4-5.0) gm/dl Globulin (2.5-4.0) gm/dl Albumin/Globulin Ratio (0.9-2) TSH 2.136 (0.300-4.500) uIu/ml SARS-CoV-2, RNA, NAAT NEGATIVE (NEGATIVE) Imaging Data Attestation: I personally reviewed and interpreted this imaging study as follows: My Impression: Hip x-raythere is intertrochanteric right hip fracture. X-rayno fracture or dislocation seen Chest x-rayno acute infiltrate, failure, pneumothorax seen Radiologist's Impression: Stat rad-pelvis CTintertrochanteric fracture on the right. C-spine CTno fract ure. Head CTNo acute hemorrhage or mass-effect or skull fracture ECG Data Attestation: I personally reviewed and interpreted this ECG as follows: Indication: + weakness Rate (beats per minute): 70 Rhythm: + normal sinus ECG Intervals/blocks: + Normal QRS, + Prolonged QT and + Normal [place] ECG [place]: + Normal ECG ST segments: + Normal ST segments ECG Findings: no PACs or no PVCs Comparison ECG Date: from (09/02/21) Change: the following changes noted (T wave inversions anteriorly have improved) MDM Narrative She comes in as described above. She was placed in room C 12. She is here for treatment evaluation of fall she has hip pain and seems to be unable to extend her knee secondary to this. The knee itself does not seem to be tender. She was given additional fentanyl for pain so we can get some x-rays and CAT scans obtained. She hit her head but has no external signs of trauma but in concerned that she is on Coumadin. He has of her head and neck do not show any evidence o f trauma or intracranial hemorrhage. With some pain medication her knee relaxed and was now straight. X-rays of the knee are unremarkable for any fracture or dislocation seen. She does have a intertrochanteric hip fracture and I think this was because of muscle spasms. She did receive additional IV fentanyl as well as IV Tylenol while she was in the ED and seems much more comfortable with this. EKG does not show any ischemic changes and she had no syncope she has no significant electrolyte or metabolic abnormalities. She does need to be admitted for further inpatient treatment and evaluation and treatment of her hip fracture. I have consult Dr. Alexis to see her in the ER for these measures Continuous cardiac monitoring: Orders placed in EMR for continuous cardiac monitoring. Upon my interpretation the patient was noted to be in normal sinus rhythm with a rate of 60 Impression & Plan Closed hip fracture, Fall, Current use of manager intermediate anticoagulation, Acute hip pain, CHI (closed head injury), Lab test negative for COVID-19 virus Discharge Plan Visit Data Chief Complaint: Fall Stated Complaint: FALL/ HIT HEAD/rt. HIP PAIN ED Provider: Davon Silva Discharge Problem: Closed hip fracture, Fall, Current use of manager intermediate anticoagulation, Acute hip pain, CHI (closed head injury), Lab test negative for COVID-19 virus Forms [facility] Prescriptions: No Action pravastatin 40 mg tablet 40 mg PO HS RF: 0 amlodipine 5 mg tablet 5 mg PO QAM RF: 0 flecainide 100 mg tablet 100 mg PO BID RF: 0 potassium chloride [Klor-Con M10] 10 mEq tablet,ER particles/crystals 10 meq PO QAM RF: 0 lansoprazole 30 mg capsule,delayed release(DR/EC) 30 mg PO DAILYBB RF: 0 lisinopril 20 mg tablet 20 mg PO BID RF: 0 metoprolol tartrate 50 mg tablet 25 mg PO BID RF: 0 warfarin 2.5 mg tablet See Rx Instructions .ROUTE .COMPLEX RF: 0 spironolactone 25 mg tablet 12.5 mg PO DAILY RF: 0 calcium carbonate [Calcium 600] 600 mg calcium (1,500 mg) Tablet 600 mg PO DAILY RF: 0 cholecalciferol (vitamin D3) [Vitamin D3] 50 mcg (2,000 unit) Tablet 50 mcg PO DAILY RF: 0 Referrals Referrals: Gregory Goodson MD [Primary Care Provider] - Discharge Problem: Closed hip fracture Qualifiers: Encounter type: initial encounter Laterality: right Qualified Code(s): S72.001A - Fracture of unspecified part of neck of right femur, initial encounter for closed fracture Fall Qualifiers: Encounter type: initial encounter Qualified Code(s): W19.XXXA - Unspecified fall, initial encounter Acute hip pain Qualifiers: Laterality: right Qualified Code(s): M25.551 - Pain in right hip CHI (closed head injury) Qualifiers: Encounter type: initial encounter Qualified Code(s): S09.90XA - Unspecified injury of head, initial encounter
[2021-09-05 22:47] LABS: Basophils # (auto) 0.02 K/uL (0-0.2); Basophils % (auto) 0.2 %; Eosinophils # (auto) 0.08 K/uL (0-0.5); Eosinophils % (auto) 0.9 %; Hematocrit (blood only) 36.9 % (37-47); Hemoglobin 12.3 g/dL (12.0-16.0); Immature Granulocytes # (auto) 0.02 K/uL (0.00-0.02); Immature Granulocytes % (auto) 0.2 %; Lymphocytes # (auto) 1.12 K/uL (1.2-3.4); Lymphocytes % (auto) 12.8 %; Mean Corpuscular Hemoglobin 30.6 pg (25-34); Mean Corpuscular Hgb Conc 33.3 g/dL (32-36); Mean Corpuscular Volume 91.8 fL (80-100); Mean Platelet Volume 10.8 fL (7.4-10.4); Monocytes # (auto) 0.46 K/uL (0.11-0.59); Monocytes % (auto) 5.3 %; Neutrophils # (auto) 7.05 K/uL (1.4-6.5); Neutrophils % (auto) 80.6 %; Platelet Count 179 K/uL (130-400); RDW Coefficient of Variation 13.4 % (11.5-14.5); RDW Standard Deviation 45.2 fL (36.4-46.3); Red Blood Count 4.02 M/uL (4.2-5.4); White Blood Count 8.75 K/uL (4.8-10.8)
[2021-09-05 22:58] LABS: INR 1.3 (0.9-1.1); Partial Thromboplastin Time 28.7 Seconds (21.0-31.0); Prothrombin Time 14.1 Seconds (9.0-12.0)
[2021-09-05 23:04] LABS: Alanine Aminotransferase 10 U/L (7-52); Albumin Globulin Ratio 1.3 (0.9-2); Albumin Level 3.9 gm/dl (3.4-5.0); Alkaline Phosphatase 38 U/L (34-104); Anion Gap 6 (3-11); Aspartate Aminotransferase 17 U/L (13-39); BUN Creatinine Ratio 20.8 (10-20); Blood Urea Nitrogen 21 mg/dl (6-23); Calcium 8.6 mg/dl (8.5-10.1); Carbon Dioxide 28 mmol/L (21-32); Chloride 103 mmol/L (98-107); Est GFR (African American) 61.3 ml/min; Est GFR (Non-African American) 52.9 ml/min; Globulin 2.9 gm/dl (2.5-4.0); Glucose 141 mg/dl (70-99(Fasting)); Potassium 4.4 mmol/L (3.5-5.1); Sodium 137 mmol/L (136-145); Total Protein 6.8 gm/dl (6.0-8.3)
[2021-09-05] MEDS ORDERED: ACETAMINOPHEN 65 ML IV ONE (23:53)
[2021-09-06] MEDS ORDERED: POLYETHYLENE (MIRALAX) 17 GM PACK PO PRN (03:47)
[2021-09-06] MEDS ORDERED: FUROSEMIDE INJ 20 MG/2 ML VIAL IV ONE (03:47)
[2021-09-06] MEDS ORDERED: ACETAMINOPHEN 325 MG TAB PO PRN (03:47)
[2021-09-06] MEDS: HYDROmorphone INJ 0.5 MG/0.5 ML SYR IV PRN ×2 (04:21→07:39)
[2021-09-06] MEDS: SODIUM CHLORIDE 0.9% 1000ML 1,000 ML IV SCH ×2 (04:21→20:49)
[2021-09-06] MEDS: PANTOprazole 40 MG TAB PO SCH (05:28)
--- NOTE | 2021-09-06 05:46 | History and Physical Report ---
DATE OF ADMISSION: 09/06/2021. CHIEF COMPLAINT: Status post fall, right hip fracture. HISTORY OF PRESENT ILLNESS: This is a 81-year-old female with past medical history significant for hyperlipidemia, sleep apnea, paroxysmal atrial fibrillation, hypertension, history of non-rheumatic aortic valve insufficiency and mitral regurgitation, vitamin D deficiency, GERD, osteoporosis, peripheral edema, essential tremor, history of GI bleed, who lives at home with her comes with a fall. The patient says she fell in the driveway because she tripped on a cat, and fell on the left side, but she was found to have a right hip fracture. She says she hit her head but no loss of consciousness. Denies any chest pain, no shortness of breath, no cough, no fever, no chills, no headache, no lightheadedness, no blurred visions, no earache, no runny nose, no sore throat. No nausea, no abdominal pain, normal bowel and bladder movements, sometimes constipated. Denies any blood in stools or black stools. No swelling in the legs. Says she can ambulate two blocks without difficulty. She can climbs steps okay. Currently, resting comfortably and hemodynamically stable. Pain is under control. ALLERGIES: PENICILLIN. PAST MEDICAL HISTORY: As mentioned above. PAST SURGICAL HISTORY: Colonoscopy, EGDs, laparoscopic cholecystectomy, left knee meniscectomy, pacemaker placement. MEDICATIONS: The patient is on amlodipine 5 mg p.o. daily, calcium carbonate 600 mg p.o. daily, vitamin D 50 mcg p.o. daily, flecainide 100 mg p.o. b.i.d., lansoprazole 30mg po daily, lisinopril 20 mg p.o. b.i.d., metoprolol tartrate 25 mg p.o. b.i.d., potassium chloride 20 mEq p.o. daily, pravastatin 40 mg p.o. daily, spironolactone 12.5 mg p.o. daily, Coumadin as directed. FAMILY HISTORY: Significant for mother had diabetes, hypertension; sister has hypertension; father has emphysema. SOCIAL HISTORY: , no smoking, no alcohol, no drug use. REVIEW OF SYMPTOMS: As per HPI. Rest of the review of symptoms negative. PHYSICAL EXAMINATION: GENERAL: The patient is moderate build, not in acute distress. VITAL SIGNS: Temperature 37, pulse 65, respiratory rate 22, blood pressure 130/68, oxygen 98% on 2 liters. HEENT: Pupils equal, round and reactive to light. Oral mucosa moist. NECK: No JVD. No neck masses. CARDIOVASCULAR: S1 and S2 heard. Regular rate and rhythm. No murmur, no gallop. Pacemaker site dressing clean, no drainage seen. RESPIRATORY SYSTEM: Normal AP diameter. No accessory muscle use. No wheezing, no crackles. ABDOMEN: Soft. Bowel sounds are present, nontender, no distention. CENTRAL NERVOUS SYSTEM: Alert and oriented. No facial droop. Speech is clear. Obeys simple commands. EXTREMITIES: Right lower extremity shortened and externally rotated. Trace pedal edema, no erythema seen. LABORATORY: WBC 8.7, hemoglobin 12.3, hematocrit 36.9, platelets 179. PT 14.1, INR 1.3, APTT 28.7. Sodium 137, potassium 4.4, chloride 103, bicarb 28, BUN 21, creatinine 1, serum glucose 141, calcium 8.6, total bilirubin 1, AST 17, ALT 10, alkaline phosphatase 38. TSH 2.3. SARS-CoV-2 rapid test negative. IMAGING: CT head and CT cervical spine stat report, no acute findings. Chest x-ray, possible pulmonary congestion. EKG: Normal sinus rhythm at a rate of 70. Prolonged QTc of 507. ASSESSMENT AND PLAN: This is a 81-year-old female who presents with a mechanical fall and right hip fracture. 1. Mechanical fall, right hip fracture. Patient's labs are okay. Ekg no acute findings.Chest has possibly some congestion. We will give dose of Lasix. If am Chest x-ray looks okay patient should be at acceptable risk to proceed with surgery. Pain control, n.p.o., gentle fluids. 2. History of atrial fibrillation, on flecainide and metoprolol. Holding Coumadin. INR is 1.3. We will monitor. 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 Follow up with Cardiology. 3. History of hyperlipidemia, on statin. 4. Hypertension. Continue amlodipine, metoprolol. Holding lisinopril until surgery. We will place on IV hydralazine p.r.n. Continue Aldactone. 5. Chronic diastolic congestive heart failure. Mild aortic valve regurgitation, moderate mitral regurgitation on Aldactone which we will continue. Getting gentle fluids. We will monitor for any volume overload. We will give a dose of Lasix. Follow the repeat x-ray in the a.m. 6. Gastroesophageal reflux disease. Continue home med. 7. Prolonged Qt . To avoid qt prolonging drugs. Follow ekg in am. 7 Deep venous thrombosis prophylaxis, could not place scds because of hip fracture , could not anticoagulate because of possible procedure. Restart Coumadin as per Orthopedics. DISPOSITION: Admit to medical floor. PT/OT prior to discharge. Social Service to help with discharge planning. Job ID: [id number] MTDD
[2021-09-06 07:12] LABS: Basophils # (auto) 0.01 K/uL (0-0.2); Basophils % (auto) 0.1 %; Hematocrit (blood only) 35.5 % (37-47); Hemoglobin 12.2 g/dL (12.0-16.0); Immature Granulocytes # (auto) 0.01 K/uL (0.00-0.02); Immature Granulocytes % (auto) 0.1 %; Lymphocytes # (auto) 0.58 K/uL (1.2-3.4); Lymphocytes % (auto) 5.6 %; Mean Corpuscular Hemoglobin 31.3 pg (25-34); Mean Corpuscular Hgb Conc 34.4 g/dL (32-36); Mean Platelet Volume 10.6 fL (7.4-10.4); Monocytes % (auto) 4.9 %; Neutrophils # (auto) 9.18 K/uL (1.4-6.5); Neutrophils % (auto) 89.3 %; Platelet Count 181 K/uL (130-400); RDW Coefficient of Variation 13.3 % (11.5-14.5); RDW Standard Deviation 44.5 fL (36.4-46.3); White Blood Count 10.28 K/uL (4.8-10.8)
[2021-09-06 07:21] LABS: INR 1.4 (0.9-1.1); Prothrombin Time 14.5 Seconds (9.0-12.0)
[2021-09-06 07:35] LABS: BUN Creatinine Ratio 26.8 (10-20); Calcium 8.4 mg/dl (8.5-10.1); Creatinine Clr Calc Pharmacy 55.3 ml/min; Est GFR (African American) 78.9 ml/min; Est GFR (Non-African American) 68.1 ml/min; Magnesium 1.9 mg/dl (1.7-2.4); Potassium 4.3 mmol/L (3.5-5.1)
--- NOTE | 2021-09-06 08:07 | XRay Report ---
XR chest 1V portable CLINICAL HISTORY: weakness. Evaluate cardiopulmonary status COMPARISON STUDY: 09/02/2021 TECHNIQUE: 1 view of the chest FINDINGS: Single frontal view of the chest demonstrates the heart to again be enlarged with a dual lead permane nt cardiac pacer in place. There is a decreased inspiratory effort with elevation of the hemidiaphrag ms and crowding of the bronchovascular markings at the lung bases and centrally. The lungs are clear of alveolar opacities. There is no evidence for pleural effusion. There is no evidence for vascular c ongestion. There is no acute osseous pathology. IMPRESSION: 1. There is a decreased inspiratory effort with otherwise no acute chest disease. ACT 112: Negative or not required by law. Electronically signed by: Adriel Mckinney M.D. 09/06/2021 8:05 AM
[2021-09-06 08:19] LABS: Appearance Urine Clear (Clear); Bacteria Urine Automated Negative (Negative); Bilirubin Urine Negative (Negative); Blood Urine 1+ (Negative); Color Urine Yellow; Glucose Urine UA Negative (Negative); Ketones Urine Negative (Negative); Leukocyte Esterase Urine Negative (Negative); Nitrite Urine Negative (Negative); Protein Urine Negative (Negative); Specific Gravity Urine 1.012 (1.000-1.030); Urobilinogen Urine Negative (Negative)
--- NOTE | 2021-09-06 08:32 | CT Scan Report ---
CT head/brain wo con CLINICAL HISTORY: fall on couadin . Pain. Evaluate for bleed. COMPARISON STUDY: No previous studies for comparison. CT DOSE: TECHNIQUE: Standard CT of the Brain was performed without IV contrast. A dose lowering technique was utilized adhering to the principles of ALARA. FINDINGS: Extraaxial space: There is no evidence for subdural hematoma. There are no extra-axial fluid collecti ons. Ventricles and cisterns: The ventricles are mildly dilated bilaterally. There is no evidence for midl ine shift or mass effect. Parenchyma: There is no subarachnoid or intraparenchymal hemorrhage. There is no evidence for an acut e infarct or cerebral edema. There is mild cerebral cortical atrophy and decreased attenuation in the periventricular white matter representing remote small vessel disease. There are no gross mass lesio ns. Osseous structures: There is no evidence for an acute fracture. The visualized paranasal sinuses are clear. The mastoid air cells are clear bilaterally. Soft tissues: There is no evidence for focal soft tissue swelling. IMPRESSION: 1. No acute intracerebral pathology. 2. Cerebral cortical atrophy and remote small vessel disease. ACT 112: Negative or not required by law. Electronically signed by: Adriel Mckinney M.D. 09/06/2021 8:31 AM
--- NOTE | 2021-09-06 08:35 | CT Scan Report ---
CT cervical spine wo con CLINICAL HISTORY: fall, On Coumadin . Neck pain COMPARISON STUDY: No previous studies for comparison. CT DOSE: 2925.21 mGy.cm TECHNIQUE: Standard CT of the Cervical Spine was performed without IV contrast. A dose lowering coy hnique was utilized adhering to the principles of ALARA. FINDINGS: Bones: The bones are osteopenic. There is no evidence for an acute fracture or malalignment. The heig hts of the vertebral bodies are maintained. The vertebral bodies are in anatomic alignment. The odont oid is intact. Degenerative changes are seen at the atlantoaxial articulation. Disc spaces: The disc space heights are maintained. Apophyseal joints: There is degenerative apophyseal joint disease present bilaterally. Soft tissues: The prevertebral soft tissues are within normal limits. IMPRESSION: 1. Osteopenia with no acute osseous pathology. 2. Degenerative apophyseal joint disease. ACT 112: Negative or not required by law. Electronically signed by: Adriel Mckinney M.D. 09/06/2021 8:33 AM
--- NOTE | 2021-09-06 08:38 | XRay Report ---
XR knee RT 1 or 2V routine CLINICAL HISTORY: fall. Knee pain COMPARISON STUDY: No previous studies for comparison. TECHNIQUE: 2 right knee views FINDINGS: Bones: The bones are osteopenic. There is no evidence for an acute fracture or dislocation. There is no lytic or blastic lesion. Joints: The joint spaces are maintained. There is no evidence for an intra-articular effusion. The dinora juliane are in anatomic alignment. Soft tissues: There is no focal soft tissue abnormality. There is no radiopaque foreign body. IMPRESSION: 1. No acute osseous pathology. ACT 112: Negative or not required by law. Electronically signed by: Adriel Mckinney M.D. 09/06/2021 8:36 AM
--- NOTE | 2021-09-06 08:39 | XRay Report ---
XR hip RT 2V w pelvis CLINICAL HISTORY: Status post fall with right hip pain. COMPARISON STUDY: No previous studies for comparison. TECHNIQUE: AP pelvis and 2 right hip views FINDINGS: Bones: The bones are osteopenic. There is a comminuted, intratrochanteric fracture of the right femor al neck with coxa varus deformity present. The remaining bones are intact. There is no lytic or blast ic lesion. Joints: The femoral head maintains its anatomic position within the acetabulum with moderate to marke d joint space narrowing. Soft tissues: There is no focal soft tissue abnormality. There is no radiopaque foreign body. IMPRESSION: 1. Comminuted, intratrochanteric fracture of the right femoral neck with coxa varus deformity. ACT 112: Negative or not required by law. Electronically signed by: Adriel Mckinney M.D. 09/06/2021 8:38 AM
--- NOTE | 2021-09-06 08:44 | Anesthesiology Consultation ---
Date of Service September 06, 2021 Assessment & Plan (1) Encounter for pre-operative examination: Chart Review Chart Review: Acceptable Risk for Surgery and Patient NOT seen in Pre Admission Testing Consults Requested none Additional Notes on chronic anticoagulation for Afib, INR 1.4, contraindicated for neuraxial History Surgery Operation Date: 09/06/21 10:30 Proposed Procedures p Intramedullary Deejay Right Femur - Angelo Madrid M.D. Height/Weight Height: 5 ft 5 in Weight: 72 kg Allergies Allergy/AdvReac Type Severity Reaction Status Date / Time Penicillins Allergy Unknown RASH Verified 09/06/21 00:35 Medications Home Medications Medication Instructions Recorded Confirmed Last Taken amlodipine 5 mg tablet 5 mg PO QAM 05/29/18 09/06/21 09/05/21 flecainide 100 mg tablet 100 mg PO BID 05/29/18 09/06/21 09/05/21 pravastatin 40 mg tablet 40 mg PO HS 05/29/18 09/06/21 09/05/21 potassium chloride 10 mEq 10 meq PO QAM 06/05/18 09/06/21 09/05/21 tablet,extended release(part/cryst) (Klor-Con M) lansoprazole 30 mg capsule,delayed 30 mg PO DAILYBB 04/10/21 09/06/21 09/05/21 release lisinopril 20 mg tablet 20 mg PO BID 09/05/21 09/06/21 09/05/21 metoprolol tartrate 50 mg tablet 25 mg PO BID 09/05/21 09/06/21 09/05/21 spironolactone 25 mg tablet 12.5 mg PO DAILY 09/05/21 09/06/21 09/05/21 warfarin 2.5 mg tablet See Rx Instructions .ROUTE .COMPLEX 09/05/21 09/06/21 09/05/21 calcium carbonate 600 mg calcium 600 mg PO DAILY 09/06/21 09/06/21 09/05/21 (1,500 mg) tablet (Calcium) cholecalciferol (vitamin D3) 50 50 mcg PO DAILY 09/06/21 09/06/21 09/05/21 mcg (2,000 unit) tablet (Vitamin D3) Active Medications Generic Name Dose Route Start Last Admin Trade Name Freq PRN Reason Stop Dose Admin Hydromorphone HCl 0.5 mg 09/06/21 03:47 09/06/21 07:39 Hydromorphone Inj 0.5 Mg/0.5 Ml Syr IV 09/20/21 03:46 0.5 mg Q3H PRN Administration Pain Sodium Chloride 1,000 mls @ 80 mls/hr 09/06/21 03:47 09/06/21 04:21 Nss 1000ml IV 10/06/21 03:46 80 mls/hr .[id number] CURLY Administration Pantoprazole Sodium 40 mg 09/06/21 06:30 09/06/21 05:28 Pantoprazole 40 Mg Tab PO 10/06/21 06:29 Not Given DAILYBB CURLY Past Medical History Medical History (Updated 09/06/21 @ 08:42 by Benny Houser DO) Atrial fibrillation CKD (chronic kidney disease) stage 3, GFR 30-59 ml/min Compression fracture of T11 vertebra GERD (gastroesophageal reflux disease) Hiatal hernia HTN (hypertension) Obstructive sleep apnea Upper GI bleed Past Surgical History Surgical History S/P cholecystectomy Social History Smoking Status: Never smoker Hx Alcohol Use: No Hx Substance Use: No Physical Exam Vital Signs Last Vital Signs Temp 98.2 F 09/06/21 08:26 Pulse 70 09/06/21 08:26 Resp 16 09/06/21 08:26 BP 127/76 09/06/21 08:26 Pulse Ox 98 09/06/21 08:26 Testing Laboratory Results 09/06/21 06:49 09/06/21 06:49 PT 14.5 Seconds (9.0-12.0) H 09/06/21 06:49 INR 1.4 (0.9-1.1) H 09/06/21 06:49 APTT 28.7 Seconds (21.0-31.0) 09/05/21 22:36 Urine Color Yellow 09/06/21 Unknown Urine Appearance Clear (Clear) 09/06/21 Unknown Urine pH 5.0 (4.5-7.5) 09/06/21 Unknown Ur Specific [place] 1.012 (1.000-1.030) 09/06/21 Unknown Urine Protein Negative (Negative) 09/06/21 Unknown Urine Glucose (UA) Negative (Negative) 09/06/21 Unknown Urine Ketones Negative (Negative) 09/06/21 Unknown Urine Nitrite Negative (Negative) 09/06/21 Unknown Ur Leukocyte Esterase Negative (Negative) 09/06/21 Unknown Urine WBC (Auto) 1-5 /hpf (0-5) 09/06/21 Unknown Urine RBC (Auto) 5-10 /hpf (0-4) H 09/06/21 Unknown U Hyaline Cast (Auto) 1-5 /lpf (0-5) 09/06/21 Unknown U Epithel Cells (Auto) 5-10 /lpf (0-5) H 09/06/21 Unknown Urine Bacteria (Auto) Negative (Negative) 09/06/21 Unknown Electrocardiogram Date: 09/05/21 Findings: + NSR @ Left [place] Dev, Prolonged QT Chest X-Ray Date: 09/06/[address] Echocardiogram Date: 10/28/20 EF: 60-64 LV Function: normal Other Findings: + diastolic dysfunction (G2) Valvular Disease: + AI (mild) and + MR (mod)
[2021-09-06] MEDS ORDERED: MIDAZOLAM HCL 1 MG/ML 2ML VIAL ONE (08:49)
[2021-09-06] MEDS ORDERED: fentaNYL citrate 100 MCG/2 ML VIAL ONE (08:49)
--- NOTE | 2021-09-06 08:49 | CT Scan Report ---
CT pelvis wo con CLINICAL HISTORY: Right hip pain, fall . History of fracture on standard radiographs COMPARISON STUDY: Standard radiographs from 09/05/2021 CT DOSE: TECHNIQUE: Standard CT of the right hip is performed without IV contrast. Multiplanar reconstruction is performed. A dose lowering technique was utilized adhering to the principles of ALARA. FINDINGS: Bones: Bones are osteopenic. As seen radiographically, there is again an intratrochanteric fracture o f the right femoral neck which is comminuted. Cortical overriding is present. 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 There are no lytic or blastic lesions. Joints: The femoral head maintains its anatomic position within the acetabulum. There is moderate leonardo nt space narrowing superiorly with subchondral sclerosis and subchondral cyst formation. The remainin g visualized bones of the pelvis are intact. Soft tissues: There is no focal soft tissue swelling. There are no focal fluid collections. IMPRESSION: 1. Comminuted, intratrochanteric fracture is again seen as noted radiographically. ACT 112: Negative or not required by law. Electronically signed by: Adriel Mckinney M.D. 09/06/2021 8:47 AM
--- NOTE | 2021-09-06 09:11 | XRay Report ---
XR chest 1V portable CLINICAL HISTORY: pul. congestion. COMPARISON STUDY: 09/05/2021 TECHNIQUE: 1 view of the chest FINDINGS: Single frontal view of the chest demonstrates the heart to again be enlarged status post pacer placem ent. The lungs are clear of alveolar opacities. There is no evidence for pleural effusion. There is n o evidence for vascular congestion. There is no acute osseous pathology. IMPRESSION: 1. No acute cardiopulmonary disease. ACT 112: Negative or not required by law. Electronically signed by: Adriel Mckinney M.D. 09/06/2021 9:09 AM
[2021-09-06] MEDS ORDERED: BUPIVACAINE 0.5 % 5 MG/1 ML MPF 30ML VIAL ONE (09:21)
[2021-09-06] MEDS ORDERED: LIDOCAINE 1% LOCAL 20 ML VIAL ONE (09:21)
--- NOTE | 2021-09-06 09:34 | Orthopedic Consultation ---
Date of Consultation September 06, 2021 Assessment & Plan (1) Intertrochanteric fracture of right hip: She has a right hip intertrochanteric femur fracture. I would recommend short cephalomedullary nailing to adequately stabilize this fracture, reduce pain, and restore the ability to bear weight. She is on Coumadin, but current INR is only 1.4. I think we can safely proceed with this minimally invasive procedure with the INR at this level. Risks, benefits, and alternatives of surgery were explained in detail. The surgical procedure, as well as postoperative recovery and rehabilitation, was also explained in detail. Risks include bleeding; infection; damage to surrounding structures such as nerves, blood vessels, and tendons that run in the area; persistent pain or stiffness; nonunion; malunion; hardware failure; painful prominent hardware requiring removal; or need for further surgery. The patient understands all of this and wishes to proceed with surgery. Informed consent was obtained. History of Present Illness Reason for Consultation: Right hip injury Attending Physician: Mina Fulton MD History of Present Illness Ms. Uribe is a 81 year old female who injured her right hip during a ground- level fall when she tripped over her cat yesterday evening. She had immediate pain and inability to bear weight on her right leg. She denies any other significant extremity injury. Of note, she does take Coumadin for atrial fibrillation. Her target INR is 2-3. It was excessively high, up around 5 earlier this year, but has been much lower recently. Allergies Allergy/AdvReac Type Severity Reaction Status Date / Time Penicillins Allergy Unknown RASH Verified 09/06/21 00:35 Home Medications Medication Instructions Recorded Confirmed Type amlodipine 5 mg tablet 5 mg PO QAM 05/29/18 09/06/21 History flecainide 100 mg tablet 100 mg PO BID 05/29/18 09/06/21 History pravastatin 40 mg tablet 40 mg PO HS 05/29/18 09/06/21 History potassium chloride 10 mEq 10 meq PO QAM 06/05/18 09/06/21 History tablet,extended release(part/cryst) (Klor-Con M) lansoprazole 30 mg capsule,delayed 30 mg PO DAILYBB 04/10/21 09/06/21 History release lisinopril 20 mg tablet 20 mg PO BID 09/05/21 09/06/21 History metoprolol tartrate 50 mg tablet 25 mg PO BID 09/05/21 09/06/21 History spironolactone 25 mg tablet 12.5 mg PO DAILY 09/05/21 09/06/21 History warfarin 2.5 mg tablet See Rx Instructions .ROUTE .COMPLEX 09/05/21 09/06/21 History calcium carbonate 600 mg calcium 600 mg PO DAILY 09/06/21 09/06/21 History (1,500 mg) tablet (Calcium) cholecalciferol (vitamin D3) 50 50 mcg PO DAILY 09/06/21 09/06/21 History mcg (2,000 unit) tablet (Vitamin D3) Patient History Medical History (Updated 09/06/21 @ 09:36 by Angelo Madrid M.D.) Atrial fibrillation CKD (chronic kidney disease) stage 3, GFR 30-59 ml/min Compression fracture of T11 vertebra GERD (gastroesophageal reflux disease) Hiatal hernia HTN (hypertension) Obstructive sleep apnea Upper GI bleed Surgical History S/P cholecystectomy Social History Smoking Status: Never smoker Hx Alcohol Use: No Hx Substance Use: No Preferred Language: [place] Communication Ability: Effective Visual Impairment: No Limitations Hearing Ability: Normal Anode Worker Required: No Beliefs That Will Affect Care: None Current Living Situation: Spouse Other Information That Helps Us Care for You: No Feels Safe at Home: Yes Safety Concerns: Feels Safe At This Time Assistive Devices: CPAP, Denture - Upper, Denture - Lower and Glasses Physical Exam Physical Exam: Patient is resting comfortably and in no significant distress. She is oriented to person, place, and time. Examination of the right hip shows no open wounds. There is shortening and exte rnal rotation of the leg. There is mild swelling and tenderness to palpation of the thigh and hip area. Compartments are soft and compressible. Intact ankle dorsiflexion and plantarflexion. Results & Data ([facility]) Vital Signs (Past 12 Hours) Vital Signs Temp Pulse Pulse Resp BP BP BP 09/06/21 08:26 36.8 C 70 16 127/76 09/06/21 03:56 36.6 C 66 18 151/70 H 09/06/21 03:00 120/62 09/06/21 02:30 63 18 09/06/21 02:00 65 22 130/68 09/06/21 01:50 09/06/21 01:00 68 17 123/65 09/06/21 00:20 72 20 127/64 09/05/21 22:39 09/05/21 21:50 37.0 C 66 16 146/60 H Pulse Ox 09/06/21 08:26 98 09/06/21 03:56 97 09/06/21 03:00 09/06/21 02:30 96 09/06/21 02:00 98 09/06/21 01:50 89 L 09/06/21 01:00 93 09/06/21 00:20 94 09/05/21 22:39 93 09/05/21 21:50 96 Laboratory Results INR 1.4 Hgb/Hct 12.2/35.5 Diagnostic Findings Right hip x-rays were reviewed. They show a comminuted intertrochanteric fracture of the right proximal femur. No obvious subtrochanteric extension. It does look like the fracture extends into the femoral neck.
[2021-09-06] MEDS ORDERED: ATROPINE SULFATE 0.1 MG/ML 10ML SYR IV PRN (09:53)
[2021-09-06] MEDS ORDERED: ePHEDrine sulfate 50 MG/ML AMP IV PRN (09:53)
[2021-09-06] MEDS ORDERED: PROPOFOL IV EMULSION 10 MG/ML 20 ML VIAL IV ONE (10:10)
[2021-09-06] MEDS ORDERED: LIDOCAINE 2% 2 ML VIAL/AMP(20MG/ML) INFIL ONE (10:10)
[2021-09-06] MEDS ORDERED: ONDANSETRON INJ 2 MG/ML 2 ML VIAL ONE (10:10)
[2021-09-06] MEDS ORDERED: DEXAMETHASONE SOD INJ 4 MG/ML VIAL ONE (10:10)
[2021-09-06] MEDS: amLODIPine BESYLATE 5 MG TAB PO SCH (10:18)
[2021-09-06] MEDS: CHOLECALCIFEROL 1,000 UNITS 25 MCG TAB PO SCH (10:18)
[2021-09-06] MEDS: CALCIUM 600MG + VIT D 400 IU TAB PO SCH (10:18)
[2021-09-06] MEDS: POTASSIUM CHLORIDE 10 MEQ TABCR PO SCH (10:19)
[2021-09-06] MEDS: SPIRONOLACTONE 12.5 MG TAB PO SCH (10:19)
[2021-09-06] MEDS: FLECAINIDE ACETATE 100 MG TABLET PO SCH ×2 (10:19→20:55)
[2021-09-06] MEDS: METOPROLOL TARTRATE 25 MG TAB PO SCH ×2 (10:19→20:57)
[2021-09-06] MEDS ORDERED: ceFAZolin 330 MG/ML 1 GM VIAL ONE ×2 (10:20)
[2021-09-06] MEDS ORDERED: ROCURONIUM BROMIDE 10 MG/ML 5 ML VIAL IV ONE (10:26)
--- NOTE | 2021-09-06 11:34 | Operative Report ---
Post Operative Report Pre & Post Diagnosis Operation Date: 09/06/21 10:30 Pre-Op Diagnosis: Right hip intertrochanteric femur fracture Post-Op Diagnosis: Right hip intertrochanteric femur fracture I identified the patient and participated in the time-out.: Yes Procedure Operation Date: 09/06/21 10:30 Actual Procedures Right hip short cephalomedullary nailing for intertrochanteric femur fracture (55259) - Angelo Madrid M.D. Surgeon Angelo Madrid Marketing Operations Analyst Janette Teixeira PA-C Estimated Blood Loss 30 Findings Consistent with Post-Op Diagnosis Specimens None Drains None Anesthesia Type General Complications none Disposition Disposition: Recovery Room Indications Ms. Uribe is a 81-year-old female who injured her right hip during a ground- level fall yesterday. History, clinical exam, and imaging were consistent with the above diagnosis. Risks, benefits, and alternatives of surgery were explained in detail. The patient understood all this and wished to proceed. Description of Procedure Implants: Synthes Short (170mm) 130 degree 11mm Trochanteric Fixation Nail, 11mm helical blade, 5mm distal locking screw Patient was identified in the preoperative holding area. Operative extremity was marked. Patient was then brought back to the operating room, and general anesthesia was induced without complication. Appropriate weight-based dose of Ancef was infused intravenously for antibiotic prophylaxis. Patient was then positioned on the fracture table with the traction apparatus. The nonoperative hip was flexed and placed into the well leg zapien. Longitudinal traction was applied to the operative hip. Fracture reduction was then performed under fluoroscopic imaging. Once acceptable reduction had been achieved, the right hip was then prepped and draped in a standard sterile fashion using Chlorhexidine prep. I first made an incision just proximal to the greater trochanter in line with the femoral shaft axis, and split the fibers of the iliotibial band. I then bluntly palpated down to the greater trochanter and inserted the guidewire down to the tip of the greater trochanter. It was appropriately positioned on AP and lateral images, and then driven into the proximal femur. I then inserted the soft tissue protector down to the tip of the greater trochanter and then passed the entry reamer over top of the guidewire. It was advanced down towards the lesser trochanter to open the proximal femur. I then inserted the Synthes short TFN attached to the targeting arm into the proximal femur. The nail felt too tight within the femoral canal, and I therefore removed it and decided to ream the canal to avoid incarceration of the implant within the femoral canal. Ball- tipped guidewire was inserted into the femoral canal, and I then reamed sequentially up to 1.5 mm over the nail diameter. The nail was then reinserted into the femoral canal. I malleted it down to an appropriate depth for proper trajectory of the helical blade into the femoral head. Once the nail was at an appropriate depth, I then attached the targeting guide for the helical blade onto the targeting arm. Incision was made in line with the guide through the skin and iliotibial band. The guide sleeve was placed against the lateral cortex of the femur. Guidewire was then inserted through the guide and up into the femoral neck and head. I verified proper placement and trajectory under both AP and lateral images. I advanced the guidewire to the subchondral bone in the femoral head and verified proper depth on orthogonal images. I then measured the depth off of the guidewire. The drill for the helical blade was then set at an appropriate level to match the measured length. The drill was then advanced to the set depth. An appropriate length helical blade was selected and malleted into place over the guidewire. The fracture site was then compressed through the helical blade with the compression ring. I then deployed the set screw proximally to prevent rotation of the helical blade during fracture compression. Fracture compression was then applied using the compression ring on the helical blade targeting sleeve. I then made an incision for the distal locking screw in line with the drill guide through skin and iliotibial band. I then placed the drill sleeve down on the lateral cortex of the femur and drilled through the distal locking hole. Screw length was then measured off of the calibrated drill bit, and an appropriate length was selected and then inserted. The screw length was verified under fluoroscopic imaging. Final fluoroscopic images were then obtained to ensure proper hardware placement, screw length, and fracture reduction. The wounds were then copiously irrigated with sterile saline. I then closed the iliotibial band and deep dermal tissue with #0 Vicryl suture. Subcutaneous tissues closed with 3-0 Vicryl suture, and skin was closed with georgette. Sterile dressings were then applied with Xeroform, sterile gauze, and foam tape. Drapes were then removed and traction apparatus was disconnected. The patient was awakened from general anesthesia, transferred over to the stretcher, and taken to the Post Anesthesia Care Unit in stable condition. There were no immediate complications from the procedure. I was present and scrubbed for the entire procedure. Due to the complex nature of the procedure, the entire surgery was performed with the operational assistance of Janette Teixeira PA-C. The contract administrative assistant, under direct supervision, was involved in the performance of all aspects of the surgical procedure including hemostasis, tissue incision and retraction, instrument management, patient positioning, and wound closure. I attest to the content of the Intraoperative Record and any orders documented therein. Any exceptions are noted below.
[2021-09-06] MEDS: fentaNYL citrate 100 MCG/2 ML VIAL IV PRN ×4 (11:37→11:52)
--- NOTE | 2021-09-06 12:27 | Electrocardiogram Report ---
Test Reason : Blood Pressure : / mmHG Vent. Rate : 070 BPM Atrial Rate : 070 BPM P-R Int : 194 ms QRS Dur : 104 ms QT Int : 470 ms P-R-T Axes : 075 -53 077 degrees QTc Int : 507 ms Normal sinus rhythm Left axis deviation Prolonged QT Incomplete right bundle branch block Nonspecific ST abnormality Abnormal ECG Confirmed by Demetris Barlow ([id number]) on 09/06/2021 12:26:26 PM Referred By: REFERRED SELF Confirmed By:Mahin Barlow
--- NOTE | 2021-09-06 12:29 | Anesthesiology Progress Note ---
Date of Service September 06, 2021 Anesthesia Post Procedure Vital Signs Vital Signs: Temp Pulse Pulse Resp BP BP BP 09/06/21 12:20 64 16 138/64 09/06/21 12:10 97.2 F L 67 17 128/62 09/06/21 12:00 65 17 139/62 09/06/21 11:50 65 17 120/70 09/06/21 11:40 69 16 129/55 L 09/06/21 11:33 97.3 F L 74 16 129/70 09/06/21 08:26 98.2 F 70 16 127/76 09/06/21 03:56 97.9 F 66 18 151/70 H 09/06/21 03:00 120/62 09/06/21 02:30 63 18 09/06/21 02:00 65 22 130/68 09/06/21 01:50 09/06/21 01:00 68 17 123/65 09/06/21 00:20 72 20 127/64 09/05/21 22:39 09/05/21 21:50 98.6 F 66 16 146/60 H Pulse Ox 09/06/21 12:20 97 09/06/21 12:10 95 09/06/21 12:00 95 09/06/21 11:50 97 09/06/21 11:40 96 09/06/21 11:33 99 09/06/21 08:26 98 09/06/21 03:56 97 09/06/21 03:00 09/06/21 02:30 96 09/06/21 02:00 98 09/06/21 01:50 89 L 09/06/21 01:00 93 09/06/21 00:20 94 09/05/21 22:39 93 09/05/21 21:50 96 Pain Intensity Right Hip: Pain Intensity: 8 Transfer of Care Handoff Completed per policy Notes Mental Status: alert / awake / arousable and participated in evaluation Patient Amnestic to Procedure: Yes Nausea / Vomiting: adequately controlled Pain: adequately controlled Airway Patency, RR, SpO2: stable & adequate BP & HR: stable & adequate Hydration State: stable & adequate Anesthetic Complications: no major complications apparent and Pt Satisfied with anesthetic care
--- NOTE | 2021-09-06 14:39 | Fluoroscopy Report ---
FL hip RT 2-3V CLINICAL HISTORY: RT TROCH NAIL COMPARISON STUDY: None FLUOROSCOPY TIME: 1 minute and 32 seconds. FLUOROSCOPIC IMAGES: 5 FINDINGS: C-arm images were obtained status post internal fixation of left hip fracture. IMPRESSION: Status post internal fixation. ACT 112: Negative or not required by law. Electronically signed by: Adriel Mckinney M.D. 09/06/2021 2:37 PM
--- NOTE | 2021-09-06 20:04 | XRay Report ---
XR hip RT min 2V CLINICAL HISTORY: Post-Operative implant position. COMPARISON STUDY: 09/05/2021 TECHNIQUE: 2 right hip views FINDINGS: The patient is status post internal fixation for previously identified intratrochanteric fr acture of the right femoral neck. IMPRESSION: 1. Status post internal fixation. ACT 112: Negative or not required by law. Electronically signed by: Adriel Mckinney M.D. 09/06/2021 8:02 PM
[2021-09-06] MEDS: PRAVASTATIN SOD 40 MG TAB PO SCH (20:54)
[2021-09-07] MEDS: PANTOprazole 40 MG TAB PO SCH (06:02)
[2021-09-07] MEDS: SODIUM CHLORIDE 0.9% 1000ML 1,000 ML IV SCH (06:06)
[2021-09-07 06:33] LABS: Hematocrit (blood only) 30.9 % (37-47); Hemoglobin 10.1 g/dL (12.0-16.0); Immature Granulocytes # (auto) 0.02 K/uL (0.00-0.02); Immature Granulocytes % (auto) 0.2 %; Lymphocytes # (auto) 0.97 K/uL (1.2-3.4); Lymphocytes % (auto) 9.5 %; Mean Corpuscular Hgb Conc 32.7 g/dL (32-36); Mean Corpuscular Volume 91.7 fL (80-100); Mean Platelet Volume 10.9 fL (7.4-10.4); Monocytes # (auto) 1.06 K/uL (0.11-0.59); Monocytes % (auto) 10.4 %; Neutrophils # (auto) 8.14 K/uL (1.4-6.5); Neutrophils % (auto) 79.9 %; Platelet Count 177 K/uL (130-400); RDW Coefficient of Variation 13.9 % (11.5-14.5); RDW Standard Deviation 46.5 fL (36.4-46.3); Red Blood Count 3.37 M/uL (4.2-5.4); White Blood Count 10.19 K/uL (4.8-10.8)
[2021-09-07 06:57] LABS: BUN Creatinine Ratio 27.1 (10-20); Calcium 7.7 mg/dl (8.5-10.1); Creatinine Clr Calc Pharmacy 53.4 ml/min; Est GFR (African American) 75.5 ml/min; Est GFR (Non-African American) 65.2 ml/min; Potassium 4.3 mmol/L (3.5-5.1)
[2021-09-07] MEDS: FLECAINIDE ACETATE 100 MG TABLET PO SCH ×2 (08:14→21:12)
[2021-09-07] MEDS: CHOLECALCIFEROL 1,000 UNITS 25 MCG TAB PO SCH (08:14)
[2021-09-07] MEDS: POTASSIUM CHLORIDE 10 MEQ TABCR PO SCH (08:14)
[2021-09-07] MEDS: METOPROLOL TARTRATE 25 MG TAB PO SCH ×2 (08:14→21:12)
[2021-09-07] MEDS: amLODIPine BESYLATE 5 MG TAB PO SCH (08:14)
[2021-09-07] MEDS: CALCIUM 600MG + VIT D 400 IU TAB PO SCH (08:14)
[2021-09-07] MEDS: SPIRONOLACTONE 12.5 MG TAB PO SCH (08:14)
--- NOTE | 2021-09-07 09:07 | Hospitalist Progress Note ---
Date of Service September 07, 2021 Assessment & Plan (1) Intertrochanteric fracture of right hip: Plan: This is a 81-year-old female who presents with a mechanical fall and right hip fracture. 1. Mechanical fall, right hip fracture. Blood work, unremarkable, Ekg without acute findings. Chest w/ possibly some congestion. Received Lasix. Repeated chest x-ray in the morning. Patient acceptable risk to proceed with surgery. Patient underwent right hip fracture surgical repair, tolerated procedure well. Pain control, gentle fluids perioperatively, now stopped 2. History of atrial fibrillation, -on flecainide and metoprolol. Holding Coumadin. INR is 1.3. We will monitor. 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 Follow up with Cardiology. 3. History of hyperlipidemia, on statin. 4. Hypertension. Continue amlodipine, metoprolol. Holding lisinopril until surgery. IV hydralazine p.r.n. Continue Aldactone. 5. Chronic diastolic congestive heart failure. Mild aortic valve regurgitation, moderate mitral regurgitation on Aldactone which we will continue. Received gentle fluids perioperative We will monitor for any volume overload. received dose of Lasix on admission. 6. Gastroesophageal reflux disease. Continue home med. 7. Prolonged Qt . To avoid qt prolonging drugs. DVT prophylaxis, could not place scds because of hip fracture , could not anticoagulate because of possible procedure. Restart Coumadin as per Orthopedics. DISPOSITION:medical floor. PT/OT prior to discharge. Social Service to help with discharge planning. Admission and Anticipated Discharge Date Admission Date: September 06, 2021 Subjective Patient seen in follow-up of right hip fracture, now status post surgical repair Tolerated procedure well Reports pain when moving No fevers, chills, chest pain, shortness of breath No abdominal pain, not having BMs after surgery yet Review of Systems Review of Systems: All systems reviewed & are unremarkable except as noted in Subjective Physical Exam Physical Exam: GENERAL: The patient is moderate build, not in acute distress. HEENT: NC/AT. EOMI. Pupils equal, round and reactive to light. Oral mucosa moist. NECK: No JVD. No neck masses. CARDIOVASCULAR: S1 and S2 heard. Regular rate and rhythm. No murmur, no gallop. Pacemaker site dressing clean, no drainage seen. RESPIRATORY SYSTEM: Normal AP diameter. No accessory muscle use. No wheezing, no crackles. ABDOMEN: Soft. Bowel sounds are present, nontender, no distention. CENTRAL NERVOUS SYSTEM: Alert and oriented. No facial droop. Speech is clear. Obeys simple commands. EXTREMITIES:Surgical dressings applied over right upper thigh, no significant edema or erythema noted Results & Data Results & Data ([facility]) Vital Signs (Past 12 Hours) Vital Signs Temp Pulse Resp BP Pulse Ox 09/07/21 06:50 36.8 C 69 18 121/69 93 09/07/21 04:35 36.7 C 62 18 132/76 92 Laboratory Results 09/07/21 09/07/21 09/07/21 Range/Units 05:42 05:42 05:42 WBC 10.19 (4.8-10.8) K/uL RBC 3.37 L (4.2-5.4) M/uL Hgb 10.1 L (12.0-16.0) g/dL Hct 30.9 L (37-47) % MCV 91.7 (80-100) fL MCH 30.0 (25-34) pg MCHC 32.7 (32-36) g/dL RDW Std Deviation 46.5 H (36.4-46.3) fL RDW Coeff of Kenrick 13.9 (11.5-14.5) % Plt Count 177 (130-400) K/uL MPV 10.9 H (7.4-10.4) fL Immature Gran % (Auto) 0.2 % Neut % (Auto) 79.9 % Lymph % (Auto) 9.5 % [place] % (Auto) 10.4 % Eos % (Auto) 0.0 % Baso % (Auto) 0.0 % Neut # (Auto) 8.14 H (1.4-6.5) K/uL Lymph # (Auto) 0.97 L (1.2-3.4) K/uL [place] # (Auto) 1.06 H (0.11-0.59) K/uL Eos # (Auto) 0.00 (0-0.5) K/uL Baso # (Auto) 0.00 (0-0.2) K/uL Immature Gran # (Auto) 0.02 (0.00-0.02) K/uL Sodium 136 (136-145) mmol/L Potassium 4.3 (3.5-5.1) mmol/L Chloride 103 (98-107) mmol/L Carbon Dioxide 28 (21-32) mmol/L Anion Gap 5 (3-11) BUN 23 (6-23) mg/dl Creatinine 0.85 (0.6-1.2) mg/dl Est Cr Clr Drug Dosing 53.4 ml/min Est GFR ( Amer) 75.5 ml/min Est GFR (Non-Af Amer) 65.2 ml/min BUN/Creatinine Ratio 27.1 H (10-20) Glucose 110 H (70-99(Fasting)) mg/dl Calcium 7.7 L (8.5-10.1) mg/dl 25-OH Vitamin D Total 49.4 (30-100) ng/ml Medications Administered Current Inpatient Medications Amlodipine Besylate (Amlodipine Besylate 5 Mg Tab) 5 mg PO QAM [facility] Stop: 10/06/21 08:59 Last Admin: 09/07/21 08:14 Dose: 5 mg Documented by: Flecainide Acetate (Flecainide Acetate 100 Mg Tablet) 100 mg PO BID [facility] Stop: 10/06/21 08:59 Last Admin: 09/07/21 08:14 Dose: 100 mg Documented by: Hydromorphone HCl (Hydromorphone Inj 0.5 Mg/0.5 Ml Syr) 0.5 mg IV Q3H PRN PRN Reason: Pain Stop: 09/20/21 03:46 Last Admin: 09/06/21 07:39 Dose: 0.5 mg Documented by: Metoprolol Tartrate (Metoprolol Tartrate 25 Mg Tab) 25 mg PO BID [facility] Stop: 10/06/21 08:59 Last Admin: 09/07/21 08:14 Dose: 25 mg Documented by: Multivitamins/Minerals (Calcium 600mg + Vit D 400 Iu Tab) 1 tab PO DAILY [facility] Stop: 10/06/21 08:59 Last Admin: 09/07/21 08:14 Dose: 1 tab Documented by: Oxycodone HCl (Oxycodone Hcl Ir 5 Mg Tab (Immediate Release)) 5 mg PO Q4 PRN PRN Reason: Pain Stop: 09/20/21 12:15 Pantoprazole Sodium (Pantoprazole 40 Mg Tab) 40 mg PO DAILYBB [facility]Y Stop: 10/06/21 06:29 Last Admin: 09/07/21 06:02 Dose: 40 mg Documented by: Polyethylene Glycol (Polyethylene (Miralax) 17 Gm Pack) 17 gm PO DAILY PRN PRN Reason: Constipation Stop: 10/06/21 03:46 Potassium Chloride (Potassium Chloride 10 Meq Tabcr) 10 meq PO QAM [facility]Y Stop: 10/06/21 08:59 Last Admin: 09/07/21 08:14 Dose: 10 meq Documented by: Pravastatin Sodium (Pravastatin Sod 40 Mg Tab) 40 mg PO HS CULRY Stop: 10/06/21 20:59 Last Admin: 09/06/21 20:54 Dose: 40 mg Documented by: Spironolactone (Spironolactone 12.5 Mg Tab) 12.5 mg PO DAILY [facility]Y Stop: 10/06/21 08:59 Last Admin: 09/07/21 08:14 Dose: 12.5 mg Documented by: Vitamin D (Cholecalciferol 1,000 Units 25 Mcg Tab) 2,000 units PO DAILY CURLY Stop: 10/06/21 08:59 Last Admin: 09/07/21 08:14 Dose: 2,000 units Documented by:
[2021-09-07] MEDS: oxyCODONE HCL IR 5 MG TAB (IMMEDIATE RELEASE) PO PRN (10:52)
[2021-09-07] MEDS: PRAVASTATIN SOD 40 MG TAB PO SCH (21:12)
[2021-09-08] MEDS: PANTOprazole 40 MG TAB PO SCH (06:11)
[2021-09-08 07:59] LABS: Hematocrit (blood only) 27.6 % (37-47); Hemoglobin 9.1 g/dL (12.0-16.0); Mean Corpuscular Volume 91.1 fL (80-100); Mean Platelet Volume 10.3 fL (7.4-10.4); Platelet Count 145 K/uL (130-400); RDW Coefficient of Variation 13.9 % (11.5-14.5); RDW Standard Deviation 46.5 fL (36.4-46.3); Red Blood Count 3.03 M/uL (4.2-5.4); White Blood Count 7.89 K/uL (4.8-10.8)
[2021-09-08 08:07] LABS: INR 1.1 (0.9-1.1); Prothrombin Time 11.8 Seconds (9.0-12.0)
--- NOTE | 2021-09-08 08:18 | Orthopedic Progress Note ---
Date of Service September 08, 2021 Assessment & Plan (1) Intertrochanteric fracture of right hip: Plan: POD 2 s/p Right TFN PT/OT protocols. TTWB DVT prophylaxis - Ok to restart Warfarin per Orthopedics Pain management as written. Acute Blood Loss Anemia -Hgb 9.1; consistent with fracture and surgery. BMP pending. DC planning - Pt will likely need Rehab vs SNF prior to returning home. Ortho will sign off at this time. Instructions placed in DC section. Please call with any questions. Admission and Anticipated Discharge Date Admission Date: September 06, 2021 Subjective POD 2 Pt sitting up in bed. Awake, alert. Appears comfortable. No complaints this AM. Pain controlled. State she tried working with PT yesterday and progress was a bit slow. Feels she will need a rehab stay. Physical Exam Physical Exam: Dressings with scant drainage noted. No erythema. Swelling noted consistent with surgery. Thigh soft, NT. NV intact. Toes mobile. Results & Data ([facility]) Vital Signs (Past 12 Hours) Vital Signs Temp Pulse Resp BP BP Pulse Ox 09/08/21 07:17 37.0 C 83 16 151/72 H 90 09/07/21 21:11 37.1 C 89 18 154/79 H 93
[2021-09-08 08:26] LABS: BUN Creatinine Ratio 28.4 (10-20); Calcium 7.6 mg/dl (8.5-10.1); Creatinine Clr Calc Pharmacy 61.3 ml/min; Est GFR (African American) 89.3 ml/min; Est GFR (Non-African American) 77.1 ml/min; Magnesium 1.9 mg/dl (1.7-2.4); Phosphorus 2.3 mg/dl (2.5-4.9)
[2021-09-08] MEDS: oxyCODONE HCL IR 5 MG TAB (IMMEDIATE RELEASE) PO PRN (09:02)
[2021-09-08] MEDS: FLECAINIDE ACETATE 100 MG TABLET PO SCH (09:03)
[2021-09-08] MEDS: amLODIPine BESYLATE 5 MG TAB PO SCH (09:03)
[2021-09-08] MEDS: CALCIUM 600MG + VIT D 400 IU TAB PO SCH (09:03)
[2021-09-08] MEDS: CHOLECALCIFEROL 1,000 UNITS 25 MCG TAB PO SCH (09:03)
[2021-09-08] MEDS: POTASSIUM CHLORIDE 10 MEQ TABCR PO SCH (09:04)
[2021-09-08] MEDS: SPIRONOLACTONE 12.5 MG TAB PO SCH (09:04)
[2021-09-08] MEDS: METOPROLOL TARTRATE 25 MG TAB PO SCH (09:04)
[2021-09-08] MEDS ORDERED: lisinopril 20 MG TAB PO SCH (11:00)
--- NOTE | 2021-09-08 11:00 | Hospitalist Progress Note ---
Date of Service September 08, 2021 Assessment & Plan (1) Intertrochanteric fracture of right hip: Plan: This is a 81-year-old female who presents with a mechanical fall and right hip fracture. 1. Mechanical fall, right hip fracture. Blood work, unremarkable, Ekg without acute findings. Chest w/ possibly some congestion. Received Lasix. Repeated chest x-ray in the morning. Patient acceptable risk to proceed with surgery. Patient underwent right hip fracture surgical repair, tolerated procedure well. Pain control, gentle fluids perioperatively, now stopped Follow-up with Dr. Madrid in orthopedic surgery clinic 10-14 days after surgery. 2. History of atrial fibrillation, -on flecainide and metoprolol. Holding Coumadin. INR is 1.3. We will monitor. 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 Follow up with Cardiology - device clinic. Per orthopedics, okay to resume warfarin, resume today 09/08/21 Monitor INR 3. History of hyperlipidemia, on statin. 4. Hypertension. Continue amlodipine, metoprolol. Holding lisinopril until surgery. IV hydralazine p.r.n. Continue Aldactone. 5. Chronic diastolic congestive heart failure. Mild aortic valve regurgitation, moderate mitral regurgitation on Aldactone which we will continue. Received gentle fluids perioperative We will monitor for any volume overload. received dose of Lasix on admission. 6. Gastroesophageal reflux disease. Continue home med. 7. Prolonged Qt . To avoid qt prolonging drugs. DVT prophylaxis, Restart Coumadin as per Orthopedics. DISPOSITION:Plan to discharge to [facility]. Admission and Anticipated Discharge Date Admission Date: September 06, 2021 Subjective Patient seen in follow-up of right hip fracture, now status post surgical repair Tolerated procedure well Reports pain when moving No fevers, chills, chest pain, shortness of breath No abdominal pain, n/v Per orthopedics, okay to resume warfarin [facility] Review of Systems Review of Systems: All systems reviewed & are unremarkable except as noted in Subjective Physical Exam Physical Exam: GENERAL: The patient is moderate build, not in acute distress. HEENT: NC/AT. EOMI. Pupils equal, round and reactive to light. Oral mucosa moist. NECK: No JVD. No neck masses. CARDIOVASCULAR: S1 and S2 heard. Regular rate and rhythm. No murmur, no gallop. Pacemaker site dressing clean, no drainage seen. RESPIRATORY SYSTEM: Normal AP diameter. No accessory muscle use. No wheezing, no crackles. ABDOMEN: Soft. Bowel sounds are present, nontender, no distention. CENTRAL NERVOUS SYSTEM: Alert and oriented. No facial droop. Speech is clear. Obeys simple commands. EXTREMITIES:Surgical dressings applied over right upper thigh, no significant edema or erythema noted Results & Data Results & Data ([facility]) Vital Signs (Past 12 Hours) Vital Signs Temp Pulse Resp BP Pulse Ox 09/08/21 07:17 37.0 C 83 16 151/72 H 90 Laboratory Results 09/08/21 09/08/21 09/08/21 Range/Units 07:18 07:18 07:18 WBC 7.89 (4.8-10.8) K/uL RBC 3.03 L (4.2-5.4) M/uL Hgb 9.1 L (12.0-16.0) g/dL Hct 27.6 L (37-47) % MCV 91.1 (80-100) fL MCH 30.0 (25-34) pg MCHC 33.0 (32-36) g/dL RDW Std Deviation 46.5 H (36.4-46.3) fL RDW Coeff of Kenrick 13.9 (11.5-14.5) % Plt Count 145 (130-400) K/uL MPV 10.3 (7.4-10.4) fL PT 11.8 (9.0-12.0) Seconds INR 1.1 (0.9-1.1) Sodium 135 L (136-145) mmol/L Potassium 4.0 (3.5-5.1) mmol/L Chloride 102 (98-107) mmol/L Carbon Dioxide 29 (21-32) mmol/L Anion Gap 4 (3-11) BUN 21 (6-23) mg/dl Creatinine 0.74 (0.6-1.2) mg/dl Est Cr Clr Drug Dosing 61.3 ml/min Est GFR ( Amer) 89.3 ml/min Est GFR (Non-Af Amer) 77.1 ml/min BUN/Creatinine Ratio 28.4 H (10-20) Glucose 104 H (70-99(Fasting)) mg/dl Calcium 7.6 L (8.5-10.1) mg/dl Phosphorus 2.3 L (2.5-4.9) mg/dl Magnesium 1.9 (1.7-2.4) mg/dl Medications Administered Current Inpatient Medications Amlodipine Besylate (Amlodipine Besylate 5 Mg Tab) 5 mg PO QAM [facility] Stop: 10/06/21 08:59 Last Admin: 09/08/21 09:03 Dose: 5 mg Documented by: Flecainide Acetate (Flecainide Acetate 100 Mg Tablet) 100 mg PO BID CURLY Stop: 10/06/21 08:59 Last Admin: 09/08/21 09:03 Dose: 100 mg Documented by: Hydromorphone HCl (Hydromorphone Inj 0.5 Mg/0.5 Ml Syr) 0.5 mg IV Q3H PRN PRN Reason: Pain Stop: 09/20/21 03:46 Last Admin: 09/06/21 07:39 Dose: 0.5 mg Documented by: Lisinopril (Lisinopril 20 Mg Tab) 20 mg PO BID [facility] Stop: 10/08/21 10:59 Metoprolol Tartrate (Metoprolol Tartrate 25 Mg Tab) 25 mg PO BID CURLY Stop: 10/06/21 08:59 Last Admin: 09/08/21 09:04 Dose: 25 mg Documented by: Multivitamins/Minerals (Calcium 600mg + Vit D 400 Iu Tab) 1 tab PO DAILY CURLY Stop: 10/06/21 08:59 Last Admin: 09/08/21 09:03 Dose: 1 tab Documented by: Oxycodone HCl (Oxycodone Hcl Ir 5 Mg Tab (Immediate Release)) 5 mg PO Q4 PRN PRN Reason: Pain Stop: 09/20/21 12:15 Last Admin: 09/08/21 09:02 Dose: 5 mg Documented by: Pantoprazole Sodium (Pantoprazole 40 Mg Tab) 40 mg PO DAILYBB [facility] Stop: 10/06/21 06:29 Last Admin: 09/08/21 06:11 Dose: 40 mg Documented by: Polyethylene Glycol (Polyethylene (Miralax) 17 Gm Pack) 17 gm PO DAILY PRN PRN Reason: Constipation Stop: 10/06/21 03:46 Last Admin: 09/08/21 09:13 Dose: 17 gm Documented by: Potassium Chloride (Potassium Chloride 10 Meq Tabcr) 10 meq PO QAM [facility] Stop: 10/06/21 08:59 Last Admin: 09/08/21 09:04 Dose: 10 meq Documented by: Pravastatin Sodium (Pravastatin Sod 40 Mg Tab) 40 mg PO HS CURLY Stop: 10/06/21 20:59 Last Admin: 09/07/21 21:12 Dose: 40 mg Documented by: Spironolactone (Spironolactone 12.5 Mg Tab) 12.5 mg PO DAILY CURLY Stop: 10/06/21 08:59 Last Admin: 09/08/21 09:04 Dose: 12.5 mg Documented by: Vitamin D (Cholecalciferol 1,000 Units 25 Mcg Tab) 2,000 units PO DAILY CURLY Stop: 10/06/21 08:59 Last Admin: 09/08/21 09:03 Dose: 2,000 units Documented by: Warfarin Sodium (Warfarin Sod 2.5 Mg Tab) 0 mg PO .COMPLEX CURLY Stop: 10/08/21 10:59
--- NOTE | 2021-09-08 12:04 | Discharge Summary ---
Date of Service September 08, 2021 Admission HPI Per Admitting Provider This is a 81-year-old female with past medical history significant for hyperlipidemia, sleep apnea, paroxysmal atrial fibrillation, hypertension, history of non-rheumatic aortic valve insufficiency and mitral regurgitation, vitamin D deficiency, GERD, osteoporosis, peripheral edema, essential tremor, history of GI bleed, who lives at home with her comes with a fall. The patient says she fell in the driveway because she tripped on a cat, and fell on the left side, but she was found to have a right hip fracture. She says she hit her head but no loss of consciousness. Denies any chest pain, no shortness of breath, no cough, no fever, no chills, no headache, no lightheadedness, no blurred visions, no earache, no runny nose, no sore throat. No nausea, no abdominal pain, normal bowel and bladder movements, sometimes constipated. Denies any blood in stools or black stools. No swelling in the legs. Says she can ambulate two blocks without difficulty. She can climbs steps okay. Currently, resting comfortably and hemodynamically stable. Pain is under control. Admission Exam Per Admitting Provider GENERAL: The patient is moderate build, not in acute distress. VITAL SIGNS: Temperature 37, pulse 65, respiratory rate 22, blood pressure 130/68, oxygen 98% on 2 liters. HEENT: Pupils equal, round and reactive to light. Oral mucosa moist. NECK: No JVD. No neck masses. CARDIOVASCULAR: S1 and S2 heard. Regular rate and rhythm. No murmur, no gallop. Pacemaker site dressing clean, no drainage seen. RESPIRATORY SYSTEM: Normal AP diameter. No accessory muscle use. No wheezing, no crackles. ABDOMEN: Soft. Bowel sounds are present, nontender, no distention. CENTRAL NERVOUS SYSTEM: Alert and oriented. No facial droop. Speech is clear. Obeys simple commands. EXTREMITIES: Right lower extremity shortened and externally rotated. Trace pedal edema, no erythema seen. Principal Diagnosis Right hip intertrochanteric femur fracture Discharge Exam GENERAL: The patient is moderate build, not in acute distress. HEENT: NC/AT. EOMI. Pupils equal, round and reactive to light. Oral mucosa moist. NECK: No JVD. No neck masses. CARDIOVASCULAR: S1 and S2 heard. Regular rate and rhythm. No murmur, no gallop. Pacemaker site dressing clean, no drainage seen. RESPIRATORY SYSTEM: Normal AP diameter. No accessory muscle use. No wheezing, no crackles. ABDOMEN: Soft. Bowel sounds are present, nontender, no distention. CENTRAL NERVOUS SYSTEM: Alert and oriented. No facial droop. Speech is clear. Obeys simple commands. EXTREMITIES:Surgical dressings applied over right upper thigh, no significant e moe or erythema noted Discharge Data Allergies Allergy/AdvReac Type Severity Reaction Status Date / Time Penicillins Allergy Unknown RASH Verified 09/06/21 00:35 Consultations 09/06/21 00:54 ED Decision to Admit Stat 09/06/21 08:00 Consult Orthopedic Surgery Routine Procedures Performed Operation Date: 09/06/21 10:30 Actual Procedures p Intramedullary Deejay Right Femur(Right) - Angelo Madrid M.D. Ordered Studies 09/05/21 22:08 CT cervical spine wo con Stat IMPRESSION: 1. Osteopenia with no acute osseous pathology. 2. Degenerative apophyseal joint disease. CT head/brain wo con Stat IMPRESSION: 1. No acute intracerebral pathology. 2. Cerebral cortical atrophy and remote small vessel disease. CT pelvis wo con Stat IMPRESSION: 1. Comminuted, intratrochanteric fracture is again seen as noted radiographically. 09/06/21 09:09 FL hip RT 2-3V Routine Hospital Course (1) Intertrochanteric fracture of right hip: This is a 81-year-old female who presents with a mechanical fall and right hip fracture. 1. Mechanical fall, right hip fracture. Blood work, unremarkable, Ekg without acute findings. Chest w/ possibly some con gestion. Received Lasix. Repeated chest x-ray in the morning. Patient acceptable risk to proceed with surgery. Patient underwent right hip fracture surgical repair, tolerated procedure well. Pain control, gentle fluids perioperatively, now stopped Follow-up with Dr. Madrid in orthopedic surgery clinic 10-14 days after surgery. Acute blood loss anemia, postop -Current hemoglobin 9.1 -Expected, no need for blood transfusion -Monitor H&H 2. History of atrial fibrillation, -on flecainide and metoprolol. Holding Coumadin. INR is 1.3. We will monitor. 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 Follow up with Cardiology - device clinic. Per orthopedics, okay to resume warfarin, resume today 09/08/21 Monitor INR 3. History of hyperlipidemia, on statin. 4. Hypertension. Continue amlodipine, metoprolol. Holding lisinopril until surgery. IV hydralazine p.r.n. Continue Aldactone. 5. Chronic diastolic congestive heart failure. Mild aortic valve regurgitation, moderate mitral regurgitation on Aldactone which we will continue. Received gentle fluids perioperative We will monitor for any volume overload. received dose of Lasix on admission. 6. Gastroesophageal reflux disease. Continue home med. 7. Prolonged Qt . To avoid qt prolonging drugs. DVT prophylaxis, Restart Coumadin as per Orthopedics. DISPOSITION:[facility] Total Time Total Time Spent Total Time Spent (In Minutes): 40 Discharge Plan Discharge Items Patient Disposition: Transfer Inpatient Rehab Fac Reason For Visit: FALL Discharge Diagnosis: Right hip intertrochanteric femur fracture Activity: Per Instructions section Non-emergency contact: Surgeon Call non-emergency contact if: your pain is not controlled, your temperature is above 101.5, your wound has increased redness and your wound has increased drainage Follow-up/Referrals: Gregory Goodson MD [Primary Care Provider] - Angelo Madrid M.D. [Physician] - Diet: Regular Addtl Attending Provider Instructions: Things to Watch Out For -Go to the Emergency Room if you have sudden onset of chest pain, shortness of breath, or uncontrollable pain. -Call the orthopedics clinic immediately if you have a sudden increase in the amount of wound drainage or the drainage becomes thick, yellow or green, or foul-smelling. -For routine questions regarding your hip surgery, call the orthopedics clinic at [phone] during regular business hours (8am-5pm). For urgent issues after regular business hours, you may call the clinic to be connected to the on-call physician. Dressings -Keep your dressings clean, dry, and in place for 4 days after surgery. After 4 days postoperatively, you may remove the dressing and cover the incisions with new clean dressings. Be sure to wash your hands thoroughly before touching your incisions. Apply a new dressing daily thereafter. -You may begin showering after your first dressing change (4 days after surgery). You may let the water run BRIEFLY over the incisions, but do not soak the incisions in the bathtub or pool for 2 weeks. You may also gently clean the incisions with mild soap and water; pat the incision dry after cleaning-do not rub the incisions. -You may use an antibiotic ointment (Bacitracin, Polysporin) if desired, but this is not necessary. Weight Bearing -You need to remain toe-touch weight bearing on your operative leg. You may rest the weight of your foot on the ground, but do not put any body weight through that leg. Use a walker for support and balance. Followup -You will need to follow-up with Dr. Madrid in orthopedic surgery clinic 10- 14 days after surgery. Please call [facility] at [phone] to make an appointment. 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 For pain you can take Tylenol 1000 mg 3 times a day. For more severe pain, take oxycodone as prescribed. Resume your warfarin, and monitor your INR. Pending Studies at Discharge: No Stand-Alone Forms: My [facility] Skilled Items Patient informed of condition?: Yes DNR: No Discharge Level of Care: Acute rehab Communicable Disease: No Discharge Prognosis: Stable Lines: None Urinary Catheter: Yes Medications and DC Order Prescriptions: New oxycodone 5 mg Tablet 5 mg PO Q4 PRN (Reason: pain) Qty: 7 RF: 0 polyethylene glycol 3350 [Miralax] 17 gram Powder In Packet 17 g PO DAILY PRN (Reason: constipation) Qty: 14 RF: 0 Continued pravastatin 40 mg tablet 40 mg PO HS RF: 0 amlodipine 5 mg tablet 5 mg PO QAM RF: 0 flecainide 100 mg tablet 100 mg PO BID RF: 0 potassium chloride [Klor-Con M10] 10 mEq tablet,ER particles/crystals 10 meq PO QAM RF: 0 lansoprazole 30 mg capsule,delayed release(DR/EC) 30 mg PO DAILYBB RF: 0 lisinopril 20 mg tablet 20 mg PO BID RF: 0 metoprolol tartrate 50 mg tablet 25 mg PO BID RF: 0 warfarin 2.5 mg tablet See Rx Instructions .ROUTE .COMPLEX RF: 0 spironolactone 25 mg tablet 12.5 mg PO DAILY RF: 0 calcium carbonate [Calcium 600] 600 mg calcium (1,500 mg) Tablet 600 mg PO DAILY RF: 0 cholecalciferol (vitamin D3) [Vitamin D3] 50 mcg (2,000 unit) Tablet 50 mcg PO DAILY RF: 0 Discharge Orders: Discharge Order (Routine); Ordered 09/08/21 Ordered By: Mina Fulton Admission Data Admit Date/Time: 09/06/21 02:18 Attending Provider: Mina Fulton Admit Provider: Srinivas Alexis Primary Care Provider: Gregory Goodson Other Providers: Srinivas Alexis ; Tmo Lew ; [facility]
[2021-09-08] MEDS ORDERED: WARFARIN SOD 2.5 MG TAB PO SCH (16:00)
[2021-09-10] MEDS ORDERED: WARFARIN SOD 5 MG TAB PO SCH (16:00)
== END 2021-09-08 20:15 | DRG 481 ==
LOC: ED 21:36 → 3N 09-06 02:18

== ENCOUNTER 2022-08-24 09:26 | Inpatient (IN) ==
--- NOTE | 2022-08-24 09:59 | Emergency Department Note ---
Impression & Plan Atrial tachycardia, Shortness of breath, Dizziness ED Provider Note NAME: FANNY DAVIS AGE: 82 SEX: F : 1940 ARRIVES VIA: Walk-In INFORMANT: Patient ED PROVIDER(S): Pramod Maddox DO CHIEF COMPLAINT: SOB and dizzy HPI: Patient is a 82-year-old female who presents to the ER for shortness of breath and feeling her heart race. She notes that this started early Tuesday. She does have a history of A-fib and notes this feels very similar. She takes Coumadin and has not missed any doses. Denies any headache or change in vision. No chest pain or belly pain. No dysuria, urgency, or frequency. She does feel very weak and rundown. She does feel also slightly lightheaded. Denies any weakness or numbness in the arms or legs. No other exacerbating or remitting fa ctors. She has had this intermittently for the past 20 years. PAST MEDICAL HISTORY:See Below PAST SURGICAL HISTORY:See Below FAMILY HISTORY:See Below SOCIAL HISTORY:See Below HOME MEDICATIONS:See Below ALLERGIES:See Below VITALS:See Below PHYSICAL EXAMINATION: GENERAL: Sitting up in bed, alert, well appearing, well nourished, no distress, non-toxic EYE EXAM: normal conjunctiva. PERRL and EOM's grossly intact. OROPHARYNX: no exudate, no erythema, lips, buccal mucosa, and tongue normal and mucous membranes are moist NECK: supple, no nuchal rigidity, no adenopathy, non-tender LUNGS: Clear to auscultation. Normal chest wall mechanics HEART: Tachycardic, S1 normal and S2 normal ABDOMEN: abdomen soft, non-tender, normo-active bowel sounds, no masses, no rebound or guarding. UPPER EXTREMITIES: upper extremities are grossly normal. LOWER EXTREMITIES: No pitting edema. NEURO EXAM: Normal sensorium, cranial nerves II-XII grossly intact, normal speech, no gross weakness of arms, no gross weakness of legs. MEDICAL DECISION MAKING: Patient is an 82-year-old female who presents ER for above-stated complaint. IV was established blood work was obtained. External records were reviewed. Labs show no significant leukocytosis or anemia. INR 2.3. BMP along with LFTs bilirubin was elevated at 1.4. Troponin was negative. proBNP mildly up at 600. Lipase was normal. COVID-negative. On the monitor and EKG appear to show an atrial tachycardia. With a history of A-fib I initially favor that this was atrial flutter. Patient was given 2 doses of Lopressor IV. There is no change. I then talked to the [employer] rep after the transmission and they believe that this is probably an atrial tachycardia. Patient was then given adenosine and broke into what appeared to be a sinus rhythm for several beats and then went back to an atrial tachycardia. I discussed case with Dr. Betancur for further evaluation and evaluate the patient at bedside. He recommended no additional interventions at this time. Also discussed the case with [facility] hospitalist Dr. Soto for further evaluation management treatment. Triage Nursing notes reviewed. Limited review of prior medical records performed Vital Signs: reviewed and remarkable for tachycardic Differential diagnosis: Cardiac ischemia, aortic dissection, pulmonary embolism, pneumothorax, pneumonia, pericarditis, myocarditis, esophageal rupture, GERD, cholecystitis, pancreatitis, musculoskeletal, as well as other pathologies. ER treatment provided: See below Diagnostics interpreted by me include EKG and cardiac monitoring as listed b elow: -Cardiac Monitoring: An order was placed for continuous cardiac monitoring. The monitor shows a rate of 128 with Atrial rhythm. -ECG: Atrial tachycardia rate of 123 Left axis No PVCs Right bundle branch block QTc 503 -Laboratory studies:Interpreted by me as stated above in MDM and shown below. Imaging studies: Xrays: As interpreted by me: Portable AP upright 1 view of the chest shows no focal infiltrate CTs show: none Consultation(s): As described in MDM Procedures:none Critical Care: None Past Med/Surg History Medical History (Updated 08/24/22 @ 13:54 by Pramod Maddox DO) FEDERICO (acute kidney injury) Atrial fibrillation CKD (chronic kidney disease) stage 3, GFR 30-59 ml/min Compression fracture of T11 vertebra GERD (gastroesophageal reflux disease) Hiatal hernia HLD (hyperlipidemia) HTN (hypertension) Obstructive sleep apnea Shortness of breath Upper GI bleed Weakness Surgical History S/P cholecystectomy Social History Smoking Status: Never smoker Do You Dip or Chew Tobacco: No; Hx Alcohol Use: No Hx Substance Use: No Preferred Language: Marshallese Communication Ability: Effective Visual Impairment: No Limitations Hearing Ability: Normal Building Performance Consultant Required: No Beliefs That Will Affect Care: None Current Living Situation: Spouse Feels Safe at Home: Yes Assistive Devices: None Allergies Allergies Allergy/AdvReac Type Severity Reaction Status Date / Time Penicillins Allergy Unknown RASH Verified 02/14/22 09:25 Home Meds Home Medications Medication Instructions Recorded Confirmed amlodipine 5 mg tablet 5 mg PO QAM 05/29/18 08/24/22 flecainide 100 mg tablet 100 mg PO BID 05/29/18 08/24/22 pravastatin 40 mg tablet 40 mg PO HS 05/29/18 08/24/22 potassium chloride 10 mEq 10 meq PO QAM 06/05/18 08/24/22 tablet,extended release(part/cryst) (Klor-Con M) lansoprazole 30 mg capsule,delayed 30 mg PO DAILYBB 04/10/21 08/24/22 release (Prevacid) lisinopril 20 mg tablet 20 mg PO BID 09/05/21 08/24/22 metoprolol tartrate 50 mg tablet 50 mg PO BID 09/05/21 08/24/22 spironolactone 25 mg tablet 12.5 mg PO MOWEFR 09/05/21 08/24/22 warfarin 2.5 mg tablet 2.5 mg PO 5XWK 09/05/21 08/24/22 calcium carbonate 600 mg calcium 600 mg PO DAILY 09/06/21 08/24/22 (1,500 mg) tablet (Calcium) cholecalciferol (vitamin D3) 50 50 mcg PO DAILY 09/06/21 08/24/22 mcg (2,000 unit) tablet (Vitamin D3) warfarin 2.5 mg tablet 5 mg PO 2XWK 08/05/22 08/24/22 Results & Data (ED) Vital Signs Vital Signs - 24 hr 08/24/22 09:31 08/24/22 09:39 08/24/22 09:39 Temperature 36.8 C Temperature Source Temporal Artery Scan Pulse Rate 118 H Pulse Rate [Apical] 126 H Pulse Rhythm Regular Pulse Strength Normal Respiratory Rate 18 18 Respiratory Effort / Characteristics Non-Labored Non-Labored Respiratory Depth Normal Normal Respiratory Pattern Regular Blood Pressure 123/87 Blood Pressure [Left Arm] 128/95 Blood Pressure Mean 99 Blood Pressure Mean [Left Arm] 106 Blood Pressure Position Lying Pulse Oximetry 98 95 98 Oxygen Delivery Method Room Air Room Air Room Air Sepsis Recent Fever Within 48 Hours No Sepsis New/Unexplained Change in Mental Status No Sepsis Action Taken by Nursing No Action Required 08/24/22 09:54 08/24/22 10:14 08/24/22 10:22 Temperature Temperature Source Pulse Rate 129 H 128 H Pulse Rate [Apical] 118 H Pulse Rhythm Pulse Strength Respiratory Rate 18 Respiratory Effort / Characteristics Respiratory Depth Respiratory Pattern Blood Pressure 133/97 Blood Pressure [Left Arm] 133/97 Blood Pressure Mean Blood Pressure Mean [Left Arm] 109 Blood Pressure Position Pulse Oximetry 96 Oxygen Delivery Method Room Air Sepsis Recent Fever Within 48 Hours Sepsis New/Unexplained Change in Mental Status Sepsis Action Taken by Nursing 08/24/22 10:29 08/24/22 10:53 08/24/22 11:35 Temperature Temperature Source Pulse Rate 122 H Pulse Rate [Apical] 127 H Pulse Rhythm Pulse Strength Respiratory Rate 18 Respiratory Effort / Characteristics Non-Labored Respiratory Depth Normal Respiratory Pattern Blood Pressure 126/93 Blood Pressure [Left Arm] 135/97 Blood Pressure Mean Blood Pressure Mean [Left Arm] 109 Blood Pressure Position Pulse Oximetry 96 Oxygen Delivery Method Room Air Room Air Sepsis Recent Fever Within 48 Hours Sepsis New/Unexplained Change in Mental Status Sepsis Action Taken by Nursing 08/24/22 11:35 08/24/22 12:45 08/24/22 13:24 Temperature Temperature Source Pulse Rate Pulse Rate [Apical] 130 H 133 H 140 H Pulse Rhythm Pulse Strength Respiratory Rate 18 18 19 Respiratory Effort / Characteristics Respiratory Depth Respiratory Pattern Blood Pressure Blood Pressure [Left Arm] 126/103 H 129/108 H 134/97 Blood Pressure Mean Blood Pressure Mean [Left Arm] 110 115 109 Blood Pressure Position Pulse Oximetry 96 97 94 Oxygen Delivery Method Room Air Room Air Room Air Sepsis Recent Fever Within 48 Hours Sepsis New/Unexplained Change in Mental Status Sepsis Action Taken by Nursing Laboratory Data 08/24/22 09:43 08/24/22 09:43 Lab Results 08/24/22 08/24/22 08/24/22 Range/Units 09:43 09:43 09:43 WBC 6.02 (4.8-10.8) K/ul RBC 4.98 (4.20-5.40) M/uL Hgb 14.9 (12.0-16.0) g/dl Hct 44.5 (37.0-47.0) % MCV 89.4 (80.0-100.0) fL MCH 29.9 (25.0-34.0) pg MCHC 33.5 (32.0-36.0) g/dL RDW Std Deviation 43.2 (36.4-46.3) fL RDW Coeff of Kenrick 13.2 (11.5-14.5) % Plt Count 239 (130-400) K/uL MPV 10.6 (9.4-12.4) fL Immature Gran % (Auto) 0.5 % Neut % (Auto) 71.4 % Lymph % (Auto) 20.3 % [place] % (Auto) 6.3 % Eos % (Auto) 1.0 % Baso % (Auto) 0.5 % Neut # (Auto) 4.30 (1.40-6.50) K/uL Lymph # (Auto) 1.22 (1.2-3.4) K/uL [place] # (Auto) 0.38 (0.11-0.59) K/uL Eos # (Auto) 0.06 (0-0.50) K/uL Baso # (Auto) 0.03 (0-0.2) K/uL Immature Gran # (Auto) 0.03 (0.01-0.20) K/uL PT 23.5 H (9.0-12.0) Seconds INR 2.3 H (0.9-1.1) Sodium 138 (136-145) mmol/L Potassium 4.0 (3.5-5.1) mmol/L Chloride 103 (98-107) mmol/L Carbon Dioxide 28 (21-32) mmol/L Anion Gap 7 (3-11) BUN 19 (6-23) mg/dl Creatinine 1.22 H (0.6-1.2) mg/dl Est Cr Clr Drug Dosing 37.2 ml/min Est GFR ( Amer) 48.5 ml/min Est GFR (Non-Af Amer) 41.8 ml/min BUN/Creatinine Ratio 15.6 (10-20) Glucose 120 H (70-99(Fasting)) mg/dl Calcium 9.2 (8.6-10.3) mg/dl Total Bilirubin 1.4 H (0.2-1.0) mg/dl AST 18 (13-39) U/L ALT 12 (7-52) U/L Alkaline Phosphatase 41 (34-104) U/L Troponin I High Sens 6.0 (0-14) pg/ml B-Natriuretic Peptide (0-100) pg/ml Total Protein 7.4 (6.0-8.3) gm/dl Albumin 4.2 (3.4-5.0) gm/dl Globulin 3.2 (2.5-4.0) gm/dl Albumin/Globulin Ratio 1.3 (0.9-2) Lipase 28 (11-82) U/L SARS-CoV-2, RNA, NAAT (NEGATIVE) 08/24/22 08/24/22 Range/Units 10:21 13:05 WBC (4.8-10.8) K/ul RBC (4.20-5.40) M/uL Hgb (12.0-16.0) g/dl Hct (37.0-47.0) % MCV (80.0-100.0) fL MCH (25.0-34.0) pg MCHC (32.0-36.0) g/dL RDW Std Deviation (36.4-46.3) fL RDW Coeff of Kenrick (11.5-14.5) % Plt Count (130-400) K/uL MPV (9.4-12.4) fL Immature Gran % (Auto) % Neut % (Auto) % Lymph % (Auto) % [place] % (Auto) % Eos % (Auto) % Baso % (Auto) % Neut # (Auto) (1.40-6.50) K/uL Lymph # (Auto) (1.2-3.4) K/uL [place] # (Auto) (0.11-0.59) K/uL Eos # (Auto) (0-0.50) K/uL Baso # (Auto) (0-0.2) K/uL Immature Gran # (Auto) (0.01-0.20) K/uL PT (9.0-12.0) Seconds INR (0.9-1.1) Sodium (136-145) mmol/L Potassium (3.5-5.1) mmol/L Chloride (98-107) mmol/L Carbon Dioxide (21-32) mmol/L Anion Gap (3-11) BUN (6-23) mg/dl Creatinine (0.6-1.2) mg/dl Est Cr Clr Drug Dosing ml/min Est GFR ( Amer) ml/min Est GFR (Non-Af Amer) ml/min BUN/Creatinine Ratio (10-20) Glucose (70-99(Fasting)) mg/dl Calcium (8.6-10.3) mg/dl Total Bilirubin (0.2-1.0) mg/dl AST (13-39) U/L ALT (7-52) U/L Alkaline Phosphatase (34-104) U/L Troponin I High Sens (0-14) pg/ml B-Natriuretic Peptide 619 H (0-100) pg/ml Total Protein (6.0-8.3) gm/dl Albumin (3.4-5.0) gm/dl Globulin (2.5-4.0) gm/dl Albumin/Globulin Ratio (0.9-2) Lipase (11-82) U/L SARS-CoV-2, RNA, NAAT NEGATIVE (NEGATIVE) Administered Medications Metoprolol Tartrate (Metoprolol Tartrate 1 Mg/Ml Vial) 5 mg IV Q5M PRN PRN Reason: Tachycardia Stop: 09/23/22 09:54 Last Admin: 08/24/22 10:53 Dose: 5 mg Documented By: Admin: 08/24/22 10:22 Dose: 5 mg Documented By: FAUSTINA Discontinued Medications Adenosine (Adenosine Iv Soln 3 Mg/Ml 2 Ml Vial) Confirm Administered Dose 6 mg IV .STK-MED ONE Stop: 08/24/22 12:11 Last Admin: 08/24/22 13:00 Dose: 6 mg Documented By: Adenosine (Adenosine Iv Soln 3 Mg/Ml 2 Ml Vial) 6 mg IV NOW STA Stop: 08/24/22 12:59 Last Admin: 08/24/22 12:27 Dose: 6 mg Documented By: Imaging Data Radiologist's Impression: Chest X-Ray 08/24/22 09:36 XR chest 1V portable HISTORY: Chest pain, nonspecific COMPARISON: Chest 08/05/2022. FINDINGS: No pneumothorax. No pleural effusions. The heart remains mildly enlarged. Is left-sided single chamber pacemaker. No evidence for pulmonary edema. No new focal lung consolidations to suggest pneumonia. IMPRESSION: No significant change compared to the prior study. No acute process. ACT 112: Negative or not required by law. Electronically signed by: Jose Nettles M.D. 08/24/2022 9:59 AM Discharge Plan Visit Data Chief Complaint: Cardiac Assessment Stated Complaint: A FIB, DIZZY FOR SEVERAL DAYS ED Provider: Pramod Maddox Discharge Problem: Atrial tachycardia, Shortness of breath, Dizziness Forms Stand Alone Forms: My [facility] [employer] Social Prescriptions Prescriptions: No Action pravastatin 40 mg tablet 40 mg PO HS amlodipine 5 mg tablet 5 mg PO QAM flecainide 100 mg tablet 100 mg PO BID potassium chloride [Klor-Con M10] 10 mEq tablet,ER particles/crystals 10 meq PO QAM lansoprazole [Prevacid] 30 mg capsule,delayed release(DR/EC) 30 mg PO DAILYBB lisinopril 20 mg tablet 20 mg PO BID Rx Instructions: cuts in half and takes half am and half pm metoprolol tartrate 50 mg tablet 50 mg PO BID Rx Instructions: 1/2 tablet dose warfarin 2.5 mg tablet 2.5 mg PO 5XWK Rx Instructions: Take 2 tablets twice weekly @ 1600 on tuesdays and and take 1 tablet daily @ 1600 five times weekly (Tuesday,Tuesday,Tuesday,Tuesday, and Tuesday) or according to coumadin clinic spironolactone 25 mg tablet 12.5 mg PO WEFR Rx Instructions: half on ,,tuesday calcium carbonate [Calcium 600] 600 mg calcium (1,500 mg) Tablet 600 mg PO DAILY cholecalciferol (vitamin D3) [Vitamin D3] 50 mcg (2,000 unit) Tablet 50 mcg PO DAILY warfarin 2.5 mg tablet 5 mg PO 2XWK Rx Instructions: Take 2 tablets twice weekly @ 1600 on tuesdays and and take 1 tablet daily @ 1600 five times weekly (Tuesday,Tuesday,Tuesday,Tuesday, and Tuesday) or according to coumadin clinic Referrals Referrals: Gregory Goodson MD [Primary Care Provider] -
--- NOTE | 2022-08-24 10:00 | XRay Report ---
XR chest 1V portable HISTORY: Chest pain, nonspecific COMPARISON: Chest 08/05/2022. FINDINGS: No pneumothorax. No pleural effusions. The heart remains mildly enlarged. Is left-sided sin gle chamber pacemaker. No evidence for pulmonary edema. No new focal lung consolidations to suggest p neumonia. IMPRESSION: No significant change compared to the prior study. No acute process. ACT 112: Negative or not required by law. Electronically signed by: Jose Nettles M.D. 08/24/2022 9:59 AM
[2022-08-24 10:04] LABS: Basophils # (auto) 0.03 K/uL (0-0.2); Basophils % (auto) 0.5 %; Eosinophils # (auto) 0.06 K/uL (0-0.50); Hematocrit (blood only) 44.5 % (37.0-47.0); Hemoglobin 14.9 g/dl (12.0-16.0); Immature Granulocytes # (auto) 0.03 K/uL (0.01-0.20); Immature Granulocytes % (auto) 0.5 %; Lymphocytes # (auto) 1.22 K/uL (1.2-3.4); Lymphocytes % (auto) 20.3 %; Mean Corpuscular Hemoglobin 29.9 pg (25.0-34.0); Mean Corpuscular Hgb Conc 33.5 g/dL (32.0-36.0); Mean Corpuscular Volume 89.4 fL (80.0-100.0); Mean Platelet Volume 10.6 fL (9.4-12.4); Monocytes # (auto) 0.38 K/uL (0.11-0.59); Monocytes % (auto) 6.3 %; Neutrophils % (auto) 71.4 %; Platelet Count 239 K/uL (130-400); RDW Coefficient of Variation 13.2 % (11.5-14.5); RDW Standard Deviation 43.2 fL (36.4-46.3); Red Blood Count 4.98 M/uL (4.20-5.40); White Blood Count 6.02 K/ul (4.8-10.8)
[2022-08-24 10:22] LABS: Albumin Globulin Ratio 1.3 (0.9-2); Albumin Level 4.2 gm/dl (3.4-5.0); BUN Creatinine Ratio 15.6 (10-20); Bilirubin,Total 1.4 mg/dl (0.2-1.0); Calcium 9.2 mg/dl (8.6-10.3); Creatinine Clr Calc Pharmacy 37.2 ml/min; Est GFR (African American) 48.5 ml/min; Est GFR (Non-African American) 41.8 ml/min; Globulin 3.2 gm/dl (2.5-4.0); Total Protein 7.4 gm/dl (6.0-8.3)
[2022-08-24] MEDS: METOPROLOL TARTRATE 1 MG/ML VIAL IV PRN ×2 (10:22→10:53)
[2022-08-24 10:56] LABS: INR 2.3 (0.9-1.1); Prothrombin Time 23.5 Seconds (9.0-12.0)
[2022-08-24] MEDS ORDERED: ADENOSINE IV SOLN 3 MG/ML 2 ML VIAL IV ONE (12:10)
[2022-08-24] MEDS ORDERED: ALUMINUM/MAGNESIUM SUSP 30 ML UDC PO PRN (12:12)
[2022-08-24] MEDS ORDERED: ACETAMINOPHEN 325 MG TAB PO PRN (12:12)
[2022-08-24] MEDS ORDERED: MAGNESIUM HYDROXIDE SUSP 30 ML UDC PO PRN (12:12)
[2022-08-24] MEDS ORDERED: POLYETHYLENE (MIRALAX) 17 GM PACK PO PRN (12:12)
[2022-08-24] MEDS ORDERED: ONDANSETRON INJ 2 MG/ML 2 ML VIAL IV PRN (12:12)
--- NOTE | 2022-08-24 12:16 | History & Physical Report ---
Date of Service August 24, 2022 Assessment & Plan (1) Atrial fibrillation: (2) Shortness of breath: (3) Weakness: (4) FEDERICO (acute kidney injury): (5) HLD (hyperlipidemia): (6) GERD (gastroesophageal reflux disease): Plan 82 year old that presents with dizziness and was found to be in SVT. She has a history of atrial fibrillation and non rheumatic valve insufficiency. She has a pacer that was placed in 2021 and interrogated without malfunction. She received a dose of Adenosine and Metoprolol 5 mg IV x2. Cardiology placed on Digoxin; if no improvement and tachycardia continues; may need to place on a Diltiazem gtt. Atrial Tachycardia: Atrial fibrillation: On Coumadin (5 mg tues and th and 2.5 mg all other days) and metoprolol Chest x-ray without pleural effusion or pulmonary edema Metoprolol held this morning due to hypotension per family Takes Flecainide Metoprolol 5 mg IV given in ED Therapeutic INR 2.3 No leukocytosis Check Ortho BP Check BNP PT/OT Cardiology consult; ordered Digoxin; if tachycardia remains; may need to consider Dilt gtt H/O Tachy-Pete Syndrome: PM placed 08/2021 dual chamber. Interrogation done today without malfunction noted. FEDERICO: Baseline creatinine 0.8-1.1; today 1.22 trace bilateral le edema; no crackles or concerns of overload at the moment BNP pending Overall suspect related to dehydration; pending BNP may order gentle fluids HTN: Non-rheumatic Aortic Valve Insufficiency: Takes lisinopril; held last night due to hypotension Continue today; monitor if creatinine increases above 1.3 and hold to avoid nephrotoxicity Takes Spirinolactone M/W/F; continue Obtain BNP HLD: Takes pravastatin; continue Most recent lipid panel 03/2022; TG 158, LDL 62, HDL 59; repeat while here GERD: Takes Prevacid; continue Disposition: PCP: Dr. Goodson Code Status: Full Code VTE Prophylaxis: TEDS/SCDS for now; on Coumadin I spent a total of 88 minutes coordinating, documenting, and providing care for this patient excluding time spent in the performance of separately billed services. All of the aforementioned completed while collaborating with the [facility] attending physician for a full treatment plan. Please see their addendum for further details. History of Present Illness Chief Complaint: SOB Primary Care Provider: Gregory Goodson MD Ms. Uribe is a 82-year-old female that presented to the ED today with complaints of shortness of breath and dizziness that started in mandaeism on Tuesday. She started to feel racing in her chest , along with dizziness. She went home and took her blood pressure. Her granddaughter is a nurse and said that her BP was 90/60. They decided to hold her Metoprolol last night. On arrival to the ED she was found to have a rapid atrial tachycardia. Metoprolol 5 mg IV x2 administered and one dose of Adenosine 6 mg given which did drop her rate initially, but she returned to 130-140. Patient overall denies chest pain or o rthopnea. She has a known history of atrial fibrillation which has been intermittently symptomatic and previously not responsive to medication treatment. She did not take her metoprolol or lisinopril last night due to reported hypotension. Patient was evaluated through the ED on 08/05/2022 for similar symptoms. Patient's pacemaker was interrogated and no arrhythmias or battery life concerns were noted. Patient's symptoms resolved and she was released home at that time. Patient follows with Dr. Betancur and Demarco Suh PA-C from Cardiology as an outpatient. An ECHO was done on 06/08/2022: EF 60 to 64%, LV wall thickness mildly increased, LV wall motion normal; cardiomegaly noted grade 2 diastolic dysfunction, mild aortic valve regurgitation, mild to moderate mitral regurgitation, mild tricuspid regurgitation and mild pulmonary hypertension with PASP 43mm Hg. Additional PMH includes AF (on Coumadin), complex atrial tachycardia, non- rheumaatic aortic valve insufficiency, HTN, HLD, history of GI bleed, history of CHI, TISHA. Patient did undergo a ablation at [facility] in 2013. She was treated with flecainide, sotalol and amiodarone. Patient sitting in her hospital bed in no apparent distress. Patient denies headache, dizziness, shortness of breath, nausea, vomiting, diarrhea, abdominal pain, numbness or tingling, recent swelling, recent falls or trauma, visual or auditory changes. She denies any urinary changes. On exam, patient appears in no apparent distress. She states that she can feel palpitations at this time. She does have cardioversion patches on. Trace bilateral LE edema. Does not appear toxic and denies any recent illness. She does take Spironolactone M/W/F. Patient was seen by Cardiology; was given Digoxin and converted to NSR. Will co ntinue home meds. Patient will be admitted for further evaluation and management. Please see A/P for further details. Allergies Allergy/AdvReac Type Severity Reaction Status Date / Time Penicillins Allergy Unknown RASH Verified 02/14/22 09:25 Home Medications Medication Instructions Recorded Confirmed Type amlodipine 5 mg tablet 5 mg PO QAM 05/29/18 08/24/22 History flecainide 100 mg tablet 100 mg PO BID 05/29/18 08/24/22 History pravastatin 40 mg tablet 40 mg PO HS 05/29/18 08/24/22 History potassium chloride 10 mEq 10 meq PO QAM 06/05/18 08/24/22 History tablet,extended release(part/cryst) (Klor-Con M) lansoprazole 30 mg capsule,delayed 30 mg PO DAILYBB 04/10/21 08/24/22 History release (Prevacid) lisinopril 20 mg tablet 20 mg PO BID 09/05/21 08/24/22 History metoprolol tartrate 50 mg tablet 50 mg PO BID 09/05/21 08/24/22 History spironolactone 25 mg tablet 12.5 mg PO MOWEFR 09/05/21 08/24/22 History warfarin 2.5 mg tablet 2.5 mg PO 5XWK 09/05/21 08/24/22 History calcium carbonate 600 mg calcium 600 mg PO DAILY 09/06/21 08/24/22 History (1,500 mg) tablet (Calcium) cholecalciferol (vitamin D3) 50 50 mcg PO DAILY 09/06/21 08/24/22 History mcg (2,000 unit) tablet (Vitamin D3) warfarin 2.5 mg tablet 5 mg PO 2XWK 08/05/22 08/24/22 History Past Med/Surg History Medical History FEDERICO (acute kidney injury) Atrial fibrillation CKD (chronic kidney disease) stage 3, GFR 30-59 ml/min Compression fracture of T11 vertebra GERD (gastroesophageal reflux disease) Hiatal hernia HLD (hyperlipidemia) HTN (hypertension) Obstructive sleep apnea Shortness of breath Upper GI bleed Weakness Surgical History S/P cholecystectomy Social History Smoking Status: Never smoker Second Hand Exposure: No; Do You Dip or Chew Tobacco: No; Tobacco Cessation Education Requested by Patient: No Hx Alcohol Use: No Hx Substance Use: No Preferred Language: Moroccan Communication Ability: Effective Visual Impairment: No Limitations Hearing Ability: Normal Certified Medical Technician Required: No Beliefs That Will Affect Care: None Current Living Situation: Spouse Current Living Situation Comment: LIVES WITH Other Information That Helps Us Care for You: No Feels Safe at Home: Yes Safety Concerns: Feels Safe At This Time Assistive Devices: CPAP, Denture - Upper, Denture - Lower and Glasses Review of Systems Review of Systems: Neuro: (-) Falls, trauma, slurred speech HEENT: (-) MARTINEZ, (+) dizziness, dysphagia, visual or auditory changes CV: (-) CP, palpitations, swelling Resp: (-) SOB GI: (-) appetite changes, N/V/D, bowel changes : (-) urinary changes Skin: (-) rashes Psych: (-) anxiety, depression Physical Exam Physical Exam: Neuro: AAOx4, PERRLA, no aphagia, memory changes, CNII-XII grossly intact HEENT: head normocephalic, moist mucus membranes CV: S1/S2, (-) M/G/R, (+) trace edema, cap refill < 3 seconds Resp: Lungs CTA in all vance. On 2LNC GI: Abdomen S/NT/ND, Ax4 bowel sounds, (-) CVA tenderness Musculoskeletal: 5/5 B/L UE strength, 5/5 B/L LE strength. No gait disturbance Skin: (-) rashes , (-) erythema. Psych: euthymic mood Results & Data Results & Data Vital Signs (Past 12 Hours) Vital Signs Temp Pulse Pulse Resp BP BP Pulse Ox 08/24/22 11:35 130 H 18 126/103 H 96 08/24/22 11:35 08/24/22 10:53 122 H 126/93 08/24/22 10:29 127 H 18 135/97 96 08/24/22 10:22 128 H 133/97 08/24/22 10:14 118 H 18 133/97 96 08/24/22 09:54 129 H 08/24/22 09:39 98 08/24/22 09:39 126 H 18 128/95 95 08/24/22 09:31 36.8 C 118 H 18 123/87 98 O2 Del Method 08/24/22 11:35 Room Air 08/24/22 11:35 Room Air 08/24/22 10:53 08/24/22 10:29 Room Air 08/24/22 10:22 08/24/22 10:14 Room Air 08/24/22 09:54 08/24/22 09:39 Room Air 08/24/22 09:39 Room Air 08/24/22 09:31 Room Air Laboratory Results Short CBC 08/24/22 Range/Units 09:43 WBC 6.02 (4.8-10.8) K/ul Hgb 14.9 (12.0-16.0) g/dl Hct 44.5 (37.0-47.0) % Plt Count 239 (130-400) K/uL BMP 08/24/22 09:43 Sodium 138 Potassium 4.0 Chloride 103 Carbon Dioxide 28 BUN 19 Creatinine 1.22 H Glucose 120 H Calcium 9.2 Liver Function 08/24/22 Range/Units 09:43 Total Bilirubin 1.4 H (0.2-1.0) mg/dl AST 18 (13-39) U/L ALT 12 (7-52) U/L Alkaline Phosphatase 41 (34-104) U/L Albumin 4.2 (3.4-5.0) gm/dl Diagnostic Findings Chest X-Ray 08/24/22 09:36 XR chest 1V portable HISTORY: Chest pain, nonspecific COMPARISON: Chest 08/05/2022. FINDINGS: No pneumothorax. No pleural effusions. The heart remains mildly enlarged. Is left-sided single chamber pacemaker. No evidence for pulmonary edema. No new focal lung consolidations to suggest pneumonia. IMPRESSION: No significant change compared to the prior study. No acute process. ACT 112: Negative or not required by law. Electronically signed by: Jose Nettles M.D. 08/24/2022 9:59 AM Code Status & VTE Plan Code Status Full Code in the event of cardiac or respiratory arrest VTE Prophylaxis Plan VTE Prophylaxis will be ordered: Yes Supervising Physician Co-Signing Physician Notes I have seen and examined the patient and have discussed the case with the provider above. I agree with the assessment and plan as stated with the following exceptions. 82 yo F presents with SOB and dizziness x 2 days. Also reporting palpitations and found to have atrial flutter with rapid ventricular response. She received adenosine and Lopressor 5mg IV x 2 doses followed by digoxin 500mcg x 1. Heart rate improved and at one point in the ER, she converted to sinus rhythm, but was back to aflutter with a rate of 130s shortly after arriving on the floor. She was started on a diltiazem drip but converted to sinus rhythm shortly after receiving the 10mg IV bolus. The drip was held and she reports dehydration and poor appetite, and was started on IVF. FEDERICO is reflective of this. On physical exam she is euvolemic to dry with no peripheral edema and lungs are CTAB. Cardiac exam reveals a regular rhythm with tachy rate and no murmurs. No gross focal neuromuscular deficits are noted. She required minimal assistance to walk across the room to the bathroom. Labs, imaging, EKG reviewed and case with discussed with automation and control engineer cardiology. Will continue with home flecainide and hold additional diltiazem unless she converts back to aflutter with tachycardia again. Hold on further digoxin loading unless further directed by cardiology. Cont to monitor on telemetry. Hold ACEI with FEDERICO present. Cont warfarin at current dosing with therapeutic INR. Trend INR in am. DO Charles
[2022-08-24] MEDS ORDERED: ADENOSINE IV SOLN 3 MG/ML 2 ML VIAL IV STA (12:58)
[2022-08-24] MEDS ORDERED: DIGOXIN 500 MCG in SYRINGE 0 ML IV ONE (13:47)
--- NOTE | 2022-08-24 13:59 | Electrocardiogram Report ---
Test Reason : Blood Pressure : / mmHG Vent. Rate : 123 BPM Atrial Rate : 000 BPM P-R Int : 000 ms QRS Dur : 114 ms QT Int : 352 ms P-R-T Axes : 000 270 101 degrees QTc Int : 503 ms Accelerated Junctional rhythm vs. 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 aflutter has replaced Electronic atrial pacemaker Vent. rate has increased BY 59 BPM Right bundle branch block is now Present Confirmed by Juan Luis Silva ([id number]) on 08/24/2022 1:59:05 PM Referred By: Confirmed By:Juan Luis Silva
--- NOTE | 2022-08-24 14:12 | Cardiology Consultation ---
Date of Consultation August 24, 2022 Assessment & Plan (1) Atrial tachycardia: (2) Pacemaker: Plan At this point we need to try rate control for her atrial tachycardia. She has received 2 IV boluses of Lopressor without improvement. Adenosine was also given which slowed her heart rate down for a few seconds only to return to the arrhythmia. She did not tolerate amiodarone in the past. I am going to give her a dose of digoxin IV now. Another consideration if she continues to be tachycardic is to start her on a diltiazem drip. We will follow along with you during her hospital stay. History of Present Illness History of Present Illness This is an 82-year-old female who has had atrial fibrillation which is very symptomatic and previously refractory to drug treatment. She underwent a PVI in 2013 she has been on flecainide, sotalol and amiodarone.. The amiodarone she did not tolerate due to GI upset. In 2014 the flecainide was resumed with metoprolol and the combination seem to be fairly effective. In 2021 she had tachybradycardia syndrome and received a dual-chamber pacemaker. She has been anticoagulated with warfarin. Over the weekend she began to have tachycardia and a racing heart which started in muslim. She did not want to come to the hospital but eventually when the arrhythmia did not break she decided to report to the emergency department where she has been found to be in a rapid narrow complex tachycardia. She has been given 2 doses of IV metoprolol as well as bolus of adenosine all of which have not treated the arrhythmia. She did have a brief few seconds of a slower heart rate after the adenosine bolus but soon she was tachycardic. She is not complaining of chest pain or shortness of breath. She has had no orthopnea or lower extremity edema. No dizziness or lightheadedness. Pacemaker was interrogated and is functioning appropriately. Past medical history: 1.Symptomatic, drug refractory, paroxysmal atrial fibrillation status post 03/04/2014 PVI ablation at [facility] by Dr. Avendaño. Patient initially treated with Flecainide followed by Sotalol and then amiodarone. Note: Amiodarone failed to control the PAF and also resulted in significant GI upset post ablation. 2.Recurrent atrial fibrillation post ablation, resumption of Flecainide, February 2015. 3.Chronic coumadin anticoagulation therapy. 4.Symptomatic complex atrial ectopy 5.Tachy-Pete Syndrome status post September 02, 2021 dual chamber pacemaker implantation by Dr. Prater at [facility]. Generator: [employer]tronic [place] XT DR SERGEY Ring [id number], serial number [id number]. TYRX pouch, reference [id number], lot number [id number]. Right atrial lead: Medtronic 5076-52 cm, serial number [id number]. Left bundle lead: Medtronic 3830-69 cm, serial number [id number]. 6.Nonrheumatic aortic valve insufficiency 7.Nonrheumatic mitral valve regurgitation 8.Hypertension. Allergies Allergy/AdvReac Type Severity Reaction Status Date / Time Penicillins Allergy Unknown RASH Verified 02/14/22 09:25 Home Medications Medication Instructions Recorded Confirmed Type amlodipine 5 mg tablet 5 mg PO QAM 05/29/18 08/24/22 History flecainide 100 mg tablet 100 mg PO BID 05/29/18 08/24/22 History pravastatin 40 mg tablet 40 mg PO HS 05/29/18 08/24/22 History potassium chloride 10 mEq 10 meq PO QAM 06/05/18 08/24/22 History tablet,extended release(part/cryst) (Klor-Con M) lansoprazole 30 mg capsule,delayed 30 mg PO DAILYBB 04/10/21 08/24/22 History release (Prevacid) lisinopril 20 mg tablet 20 mg PO BID 09/05/21 08/24/22 History metoprolol tartrate 50 mg tablet 50 mg PO BID 09/05/21 08/24/22 History spironolactone 25 mg tablet 12.5 mg PO MOWEFR 09/05/21 08/24/22 History warfarin 2.5 mg tablet 2.5 mg PO 5XWK 09/05/21 08/24/22 History calcium carbonate 600 mg calcium 600 mg PO DAILY 09/06/21 08/24/22 History (1,500 mg) tablet (Calcium) cholecalciferol (vitamin D3) 50 50 mcg PO DAILY 09/06/21 08/24/22 History mcg (2,000 unit) tablet (Vitamin D3) warfarin 2.5 mg tablet 5 mg PO 2XWK 08/05/22 08/24/22 History Patient History Medical History FEDERICO (acute kidney injury) Atrial fibrillation CKD (chronic kidney disease) stage 3, GFR 30-59 ml/min Compression fracture of T11 vertebra GERD (gastroesophageal reflux disease) Hiatal hernia HLD (hyperlipidemia) HTN (hypertension) Obstructive sleep apnea Shortness of breath Upper GI bleed Weakness Surgical History S/P cholecystectomy Social History Smoking Status: Never smoker Do You Dip or Chew Tobacco: No; Hx Alcohol Use: No Hx Substance Use: No Preferred Language: Wolof Communication Ability: Effective Visual Impairment: No Limitations Hearing Ability: Normal Pocket Assembler Required: No Beliefs That Will Affect Care: None Current Living Situation: Spouse Feels Safe at Home: Yes Assistive Devices: None Review of Systems Review of Systems: Review of Systems: See HPI for pertinent positives. All other 10 point review of systems are negative. Physical Exam Physical Exam: General: no acute distress and stated age Head: normocephalic, no masses, lesions, tenderness or abnormalities Eyes: conjunctiva are pink and non-injected, sclera clear Neck: supple, no adenopathy, no bruits, normal jugular venous pulse, no hepatojugular reflux Chest: normal shape and normal respiratory effort Lungs: clear to auscultation and percussion Cardiac Exam: - irregular rate & rhythm, no murmurs gallops or rubs - normal S1, normal S2 Pulses: 2(+) throughout Abdomen: abdomen soft, non-tender, no abnormal masses and no hepatosplenomegaly Musculoskeletal: no gait disturbance, no joint inflammation, no deforming arthritis Extremities: no edema and no cyanosis Neuro: grossly normal exam Results & Data Vital Signs (Past 12 Hours) Vital Signs Temp Pulse Pulse Resp BP BP Pulse Ox 08/24/22 13:57 130 H 18 123/95 95 08/24/22 13:54 129 H 08/24/22 13:24 140 H 19 134/97 94 08/24/22 12:45 133 H 18 129/108 H 97 08/24/22 11:35 130 H 18 126/103 H 96 08/24/22 11:35 08/24/22 10:53 122 H 126/93 08/24/22 10:29 127 H 18 135/97 96 08/24/22 10:22 128 H 133/97 08/24/22 10:14 118 H 18 133/97 96 08/24/22 09:54 129 H 08/24/22 09:39 98 08/24/22 09:39 126 H 18 128/95 95 08/24/22 09:31 36.8 C 118 H 18 123/87 98 O2 Del Method 08/24/22 13:57 Room Air 08/24/22 13:54 08/24/22 13:24 Room Air 08/24/22 12:45 Room Air 08/24/22 11:35 Room Air 08/24/22 11:35 Room Air 08/24/22 10:53 08/24/22 10:29 Room Air 08/24/22 10:22 08/24/22 10:14 Room Air 08/24/22 09:54 08/24/22 09:39 Room Air 08/24/22 09:39 Room Air 08/24/22 09:31 Room Air Laboratory Results Laboratory Results - last 24 hr 08/24/22 08/24/22 08/24/22 09:43 09:43 09:43 WBC 6.02 RBC 4.98 Hgb 14.9 Hct 44.5 MCV 89.4 MCH 29.9 MCHC 33.5 RDW Std Deviation 43.2 RDW Coeff of Kenrick 13.2 Plt Count 239 MPV 10.6 Immature Gran % (Auto) 0.5 Neut % (Auto) 71.4 Lymph % (Auto) 20.3 [place] % (Auto) 6.3 Eos % (Auto) 1.0 Baso % (Auto) 0.5 Neut # (Auto) 4.30 Lymph # (Auto) 1.22 [place] # (Auto) 0.38 Eos # (Auto) 0.06 Baso # (Auto) 0.03 Immature Gran # (Auto) 0.03 PT 23.5 H INR 2.3 H Sodium 138 Potassium 4.0 Chloride 103 Carbon Dioxide 28 Anion Gap 7 BUN 19 Creatinine 1.22 H Est Cr Clr Drug Dosing 37.2 Est GFR ( Amer) 48.5 Est GFR (Non-Af Amer) 41.8 BUN/Creatinine Ratio 15.6 Glucose 120 H Calcium 9.2 Total Bilirubin 1.4 H AST 18 ALT 12 Alkaline Phosphatase 41 Troponin I High Sens 6.0 B-Natriuretic Peptide Total Protein 7.4 Albumin 4.2 Globulin 3.2 Albumin/Globulin Ratio 1.3 Lipase 28 SARS-CoV-2, RNA, NAAT 08/24/22 08/24/22 10:21 13:05 WBC RBC Hgb Hct MCV MCH MCHC RDW Std Deviation RDW Coeff of [place] Plt Count MPV Immature Gran % (Auto) Neut % (Auto) Lymph % (Auto) [place] % (Auto) Eos % (Auto) Baso % (Auto) Neut # (Auto) Lymph # (Auto) [place] # (Auto) Eos # (Auto) Baso # (Auto) Immature Gran # (Auto) PT INR Sodium Potassium Chloride Carbon Dioxide Anion Gap BUN Creatinine Est Cr Clr Drug Dosing Est GFR ( Amer) Est GFR (Non-Af Amer) BUN/Creatinine Ratio Glucose Calcium Total Bilirubin AST ALT Alkaline Phosphatase Troponin I High Sens B-Natriuretic Peptide 619 H Total Protein Albumin Globulin Albumin/Globulin Ratio Lipase SARS-CoV-2, RNA, NAAT NEGATIVE Medications Administered Current Inpatient Medications Acetaminophen (Acetaminophen 325 Mg Tab) 650 mg PO Q4H PRN PRN Reason: Pain or Fever Stop: 09/23/22 12:11 Al Hydrox/Mg Hydrox/Simethicone (Aluminum/Magnesium Susp 30 Ml Udc) 15 ml PO Q4H PRN PRN Reason: Dyspepsia Stop: 09/23/22 12:11 Magnesium Hydroxide (Magnesium Hydroxide Susp 30 Ml Udc) 30 ml PO Q12H PRN PRN Reason: Constipation Stop: 09/23/22 12:11 Metoprolol Tartrate (Metoprolol Tartrate 1 Mg/Ml Vial) 5 mg IV Q5M PRN PRN Reason: Tachycardia Stop: 09/23/22 09:54 Last Admin: 08/24/22 10:53 Dose: 5 mg Ondansetron HCl (Ondansetron Inj 2 Mg/Ml 2 Ml Vial) 4 mg IV Q6H PRN PRN Reason: Nausea Stop: 09/23/22 12:11 Polyethylene Glycol (Polyethylene (Miralax) 17 Gm Pack) 17 gm PO DAILY PRN PRN Reason: Constipation Stop: 09/23/22 12:11
[2022-08-24] MEDS ORDERED: WARFARIN SOD 5 MG TAB PO SCH (16:00)
--- NOTE | 2022-08-24 16:14 | Electrocardiogram Report ---
Test Reason : Blood Pressure : / mmHG Vent. 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
[2022-08-24] MEDS ORDERED: dilTIAZem HCl 5 MG/ML 5 ML VIAL IV STA ×2 (17:40→23:29)
[2022-08-24] MEDS ORDERED: STAT IV Infusion **Titration per Protocol STA (17:40)
[2022-08-24] MEDS ORDERED: dilTIAZem HCL 125 MG in DEXTROSE 5% 100 ML IV SCH (18:30)
[2022-08-24] MEDS: PRAVASTATIN SOD 40 MG TAB PO SCH (21:04)
[2022-08-24] MEDS: METOPROLOL TARTRATE 50 MG TAB PO SCH (21:04)
[2022-08-24] MEDS: FLECAINIDE ACETATE 100 MG TABLET PO SCH (21:04)
[2022-08-24] MEDS: lisinopril 20 MG TAB PO SCH (21:05)
[2022-08-24] MEDS ORDERED: SODIUM CHLORIDE 0.9% 1000ML 1,000 ML IV SCH (21:15)
[2022-08-24] MEDS ORDERED: MAGNESIUM SULFATE / D5W 1 GM/100 ML BAG IV ONE (23:10)
[2022-08-25 06:21] LABS: Hematocrit (blood only) 39.8 % (37.0-47.0); Hemoglobin 13.5 g/dl (12.0-16.0); Mean Corpuscular Hemoglobin 30.3 pg (25.0-34.0); Mean Corpuscular Hgb Conc 33.9 g/dL (32.0-36.0); Mean Corpuscular Volume 89.2 fL (80.0-100.0); Mean Platelet Volume 10.7 fL (9.4-12.4); Platelet Count 192 K/uL (130-400); RDW Coefficient of Variation 13.1 % (11.5-14.5); RDW Standard Deviation 42.6 fL (36.4-46.3); Red Blood Count 4.46 M/uL (4.20-5.40); White Blood Count 5.84 K/ul (4.8-10.8)
[2022-08-25 06:25] LABS: INR 2.6 (0.9-1.1); Prothrombin Time 27.2 Seconds (9.0-12.0)
[2022-08-25] MEDS ORDERED: PANTOprazole 40 MG TAB PO SCH (06:30)
[2022-08-25 06:39] LABS: Albumin Level 3.6 gm/dl (3.4-5.0); Bilirubin,Total 1.4 mg/dl (0.2-1.0); Calcium 8.6 mg/dl (8.6-10.3); Potassium 4.5 mmol/L (3.5-5.1)
[2022-08-25] MEDS: PANTOprazole 40 MG TAB PO SCH (06:39)
[2022-08-25 06:45] LABS: Albumin Globulin Ratio 1.2 (0.9-2); BUN Creatinine Ratio 21.9 (10-20); Est GFR (African American) 52.6 ml/min; Est GFR (Non-African American) 45.4 ml/min; Globulin 2.9 gm/dl (2.5-4.0); Total Protein 6.5 gm/dl (6.0-8.3)
--- NOTE | 2022-08-25 08:09 | Electrocardiogram Report ---
Test Reason : Blood Pressure : / mmHG Vent. Rate : 120 BPM Atrial Rate : 141 BPM P-R Int : 000 ms QRS Dur : 100 ms QT Int : 360 ms P-R-T Axes : 000 -72 182 degrees QTc Int : 508 ms Atrial fibrillation with rapid ventricular response with occasional ventricular-paced complexes Left axis deviation Incomplete right bundle branch block Old Inferior infarct Diffuse Nonspecific ST and T wave abnormality Abnormal ECG When compared with ECG of 24-AUG-2022 12:27, Electronic ventricular pacemaker now present Confirmed by Juan Luis Silva ([id number]) on 08/25/2022 8:09:15 AM Referred By: REFERRED SELF Confirmed By:Juan Luis Silva
--- NOTE | 2022-08-25 08:15 | Electrocardiogram Report ---
Test Reason : Blood Pressure : / mmHG Vent. Rate : 061 BPM Atrial Rate : 277 BPM P-R Int : 250 ms QRS Dur : 102 ms QT Int : 486 ms P-R-T Axes : 088 -72 215 degrees QTc Int : 489 ms Poor data quality, interpretation may be adversely affected Atrial-paced rhythm with prolonged AV conduction Left axis deviation Pulmonary disease pattern Prolonged QT Abnormal ECG When compared with ECG of 24-AUG-2022 23:18, Electronic atrial pacemaker has replaced Atrial fibrillation Vent. rate has decreased BY 59 BPM Confirmed by Juan Luis Silva ([id number]) on 08/25/2022 8:15:13 AM Referred By: REFERRED SELF Confirmed By:Juan Luis Silva
[2022-08-25] MEDS ORDERED: SPIRONOLACTONE 12.5 MG TAB PO SCH (09:00)
[2022-08-25] MEDS: FLECAINIDE ACETATE 100 MG TABLET PO SCH ×2 (09:08→20:30)
[2022-08-25] MEDS: amLODIPine BESYLATE 5 MG TAB PO SCH (09:09)
[2022-08-25] MEDS: POTASSIUM CHLORIDE 10 MEQ TABCR PO SCH (09:09)
[2022-08-25] MEDS: METOPROLOL TARTRATE 50 MG TAB PO SCH ×2 (09:09→20:30)
[2022-08-25] MEDS: CALCIUM CARBONATE 1250MG TAB PO SCH (09:09)
[2022-08-25] MEDS: CHOLECALCIFEROL 1,000 UNITS 25 MCG TAB PO SCH (09:09)
[2022-08-25] MEDS ORDERED: WARFARIN SOD 2.5 MG TAB PO SCH (16:00)
--- NOTE | 2022-08-25 19:34 | Hospitalist Progress Note ---
Date of Service August 25, 2022 Assessment & Plan (1) Atrial fibrillation: (2) Shortness of breath: (3) Weakness: (4) FEDERICO (acute kidney injury): (5) HLD (hyperlipidemia): (6) GERD (gastroesophageal reflux disease): Plan 82 year old that presents with dizziness and was found to be in SVT. She has a history of atrial fibrillation and non rheumatic valve insufficiency. She has a pacer that was placed in 2021 and interrogated without malfunction. She received a dose of Adenosine and Metoprolol 5 mg IV x2. Cardiology placed on Digoxin; if no improvement and tachycardia continues; may need to place on a Diltiazem gtt. Atrial fibrillation with rapid ventricular response: On Coumadin and metoprolol and flecainide at home Chest x-ray without pleural effusion or pulmonary edema adenosine-->Lopressor 5mg IV x 2 in ER Dilt bolus on floor with subsequent conversion to sinus rhythm h/o poor response to amiodarone. Cont per cardiology. H/O Tachy-Pete Syndrome: PM placed 08/2021 dual chamber. Interrogation performed without malfunction noted. FEDERICO: Baseline creatinine 0.8-1.1; today improved to 1.1 Overall suspect related to dehydration, and this has improved wtih IVF and an improvement in her appetite after treatment above. HTN: Non-rheumatic Aortic Valve Insufficiency: chronic, around goal. Resume lisinopril-was held for FEDERICO, now resolved-- and cont spironolactone. per home regimen. HLD: chronic, controlled. Takes pravastatin; continue GERD: chronic, controlled. Takes Prevacid; continue Disposition: pending PT/OT recs but likely to home in am. PCP: Dr. Goodson Code Status: Full Code VTE Prophylaxis: TEDS/SCDS for now; on Coumadin DO Lanny Jean Hospitalist Admission and Anticipated Discharge Date Admission Date: August 24, 2022 Subjective 82-year-old female presented with shortness of breath and dizziness related to atrial flutter with rapid ventricular response. She has remained in sinus rhythm and reports no symptoms today. She reports ambulating up and around the room near her baseline with no dizziness provoked with movement. She denies any chest pain or shortness of breath today. Review of Systems Review of Systems: All systems are reviewed negative except as indicated above. Physical Exam Physical Exam: CONSTITUTIONAL: WNWD, vitals as above, generally well-appearing, NAD EYES: normal conjunctivae, no scleral icterus ENT: external ear and nose normal, MMM NECK: trachea midline RESPIRATORY: clear to auscultation bilaterally, no crackles, rales or wheezes, normal respiratory effort CARDIOVASCULAR: regular rate and rhythm, S1 and 2 heard without murmurs, gallops or rubs, no JVD, no peripheral edema CHEST: inspection of chest was normal GASTROINTESTINAL: soft, nontender, ND, no guarding MUSCULOSKELETAL: strength 5/5 throughout, head is normocephalic and atraumatic SKIN: warm and dry, NEUROLOGIC: CN 2-12 grossly intact, no sensory deficit, normal cognition, normal speech, no tremor PSYCHIATRIC: alert cooperative and oriented to person, place and time. Results & Data Results & Data Vital Signs (Past 12 Hours) Vital Signs Temp Pulse Pulse Resp BP Pulse Ox O2 Del Method 08/25/22 16:00 60 08/25/22 08:00 60 08/25/22 15:47 36.8 C 61 18 117/63 94 Room Air 08/25/22 11:07 36.4 C L 60 18 119/64 95 Room Air Laboratory Results Short CBC 08/25/22 Range/Units 05:46 WBC 5.84 (4.8-10.8) K/ul Hgb 13.5 (12.0-16.0) g/dl Hct 39.8 (37.0-47.0) % Plt Count 192 (130-400) K/uL BMP 08/25/22 05:46 Sodium 139 Potassium 4.5 Chloride 106 Carbon Dioxide 28 BUN 25 H Creatinine 1.14 Glucose 86 Calcium 8.6 Liver Function 08/25/22 Range/Units 05:46 Total Bilirubin 1.4 H (0.2-1.0) mg/dl AST 15 (13-39) U/L ALT 10 (7-52) U/L Alkaline Phosphatase 35 (34-104) U/L Albumin 3.6 (3.4-5.0) gm/dl Medications Administered Current Inpatient Medications Acetaminophen (Acetaminophen 325 Mg Tab) 650 mg PO Q4H PRN PRN Reason: Pain or Fever Stop: 09/23/22 12:11 Al Hydrox/Mg Hydrox/Simethicone (Aluminum/Magnesium Susp 30 Ml Udc) 15 ml PO Q4H PRN PRN Reason: Dyspepsia Stop: 09/23/22 12:11 Amlodipine Besylate (Amlodipine Besylate 5 Mg Tab) 5 mg PO QAM [facility] Stop: 09/24/22 08:59 Last Admin: 08/25/22 09:09 Dose: 5 mg Calcium Carbonate (Calcium Carbonate 1250mg Tab) 1,250 mg PO DAILY [facility] Stop: 09/24/22 08:59 Last Admin: 08/25/22 09:09 Dose: 1,250 mg Flecainide Acetate (Flecainide Acetate 100 Mg Tablet) 100 mg PO BID [facility] Stop: 09/23/22 20:59 Last Admin: 08/25/22 09:08 Dose: 100 mg Diltiazem HCl 125 mg/ Dextrose 125 mls @ 0 mls/hr IV .Q0M [facility]; Protocol Stop: 09/23/22 18:29 Last Titration: 08/24/22 18:40 Dose: 0 mg/hr, 0 mls/hr Lisinopril (Lisinopril 20 Mg Tab) 20 mg PO BID [facility] Stop: 09/23/22 20:59 Last Admin: 08/24/22 21:05 Dose: 20 mg Magnesium Hydroxide (Magnesium Hydroxide Susp 30 Ml Udc) 30 ml PO Q12H PRN PRN Reason: Constipation Stop: 09/23/22 12:11 Metoprolol Tartrate (Metoprolol Tartrate 50 Mg Tab) 50 mg PO BID [facility] Stop: 09/23/22 20:59 Last Admin: 08/25/22 09:09 Dose: 50 mg Ondansetron HCl (Ondansetron Inj 2 Mg/Ml 2 Ml Vial) 4 mg IV Q6H PRN PRN Reason: Nausea Stop: 09/23/22 12:11 Pantoprazole Sodium (Pantoprazole 40 Mg Tab) 40 mg PO DAILYBB [facility] Stop: 09/24/22 06:29 Last Admin: 08/25/22 06:39 Dose: 40 mg Polyethylene Glycol (Polyethylene (Miralax) 17 Gm Pack) 17 gm PO DAILY PRN PRN Reason: Constipation Stop: 09/23/22 12:11 Potassium Chloride (Potassium Chloride 10 Meq Tabcr) 10 meq PO QAM [facility] Stop: 09/24/22 08:59 Last Admin: 08/25/22 09:09 Dose: 10 meq Pravastatin Sodium (Pravastatin Sod 40 Mg Tab) 40 mg PO HS [facility] Stop: 09/23/22 20:59 Last Admin: 08/24/22 21:04 Dose: 40 mg Spironolactone (Spironolactone 12.5 Mg Tab) 12.5 mg PO [id number] [facility] Stop: 09/24/22 08:59 Last Admin: 08/25/22 09:07 Dose: 12.5 mg Vitamin D (Cholecalciferol 1,000 Units 25 Mcg Tab) 2,000 units PO DAILY [facility] Stop: 09/24/22 08:59 Last Admin: 08/25/22 09:09 Dose: 2,000 units Warfarin Sodium (Warfarin Sod 5 Mg Tab) 5 mg PO [id number]@1600 [facility] Stop: 09/23/22 15:59 Last Admin: 08/24/22 17:00 Dose: 5 mg Warfarin Sodium (Warfarin Sod 2.5 Mg Tab) 2.5 mg PO [id number] [facility] Stop: 09/24/22 15:59 Last Admin: 08/25/22 16:01 Dose: 2.5 mg
[2022-08-25] MEDS: PRAVASTATIN SOD 40 MG TAB PO SCH (20:30)
[2022-08-25] MEDS: lisinopril 20 MG TAB PO SCH (22:43)
[2022-08-26] MEDS: PANTOprazole 40 MG TAB PO SCH (06:13)
[2022-08-26 07:51] LABS: BUN Creatinine Ratio 24.5 (10-20); Calcium 8.7 mg/dl (8.6-10.3); Creatinine Clr Calc Pharmacy 45.7 ml/min; Est GFR (African American) 63.1 ml/min; Est GFR (Non-African American) 54.5 ml/min; Magnesium 1.9 mg/dl (1.7-2.4); Potassium 4.1 mmol/L (3.5-5.1)
[2022-08-26 08:05] LABS: INR 3.1 (0.9-1.1); Prothrombin Time 31.7 Seconds (9.0-12.0)
--- NOTE | 2022-08-26 08:29 | Electrocardiogram Report ---
Test Reason : Blood Pressure : / mmHG Vent. Rate : 064 BPM Atrial Rate : 064 BPM P-R Int : 264 ms QRS Dur : 112 ms QT Int : 428 ms P-R-T Axes : 090 -61 120 degrees QTc Int : 441 ms Atrial-paced rhythm with prolonged AV conduction Left axis deviation Pulmonary disease pattern T-wave inversion in Anterior leads Abnormal ECG When compared with ECG of 25-AUG-2022 06:11, T-wave inversion in Anterior leads less pronounced Confirmed by Juan Luis Silva ([id number]) on 08/26/2022 8:28:53 AM Referred By: REFERRED SELF Confirmed By:Juan Luis Silva
[2022-08-26] MEDS: POTASSIUM CHLORIDE 10 MEQ TABCR PO SCH (08:39)
[2022-08-26] MEDS: lisinopril 20 MG TAB PO SCH (08:39)
[2022-08-26] MEDS: CALCIUM CARBONATE 1250MG TAB PO SCH (08:39)
[2022-08-26] MEDS: METOPROLOL TARTRATE 50 MG TAB PO SCH (08:39)
[2022-08-26] MEDS: FLECAINIDE ACETATE 100 MG TABLET PO SCH (08:39)
[2022-08-26] MEDS: CHOLECALCIFEROL 1,000 UNITS 25 MCG TAB PO SCH (08:40)
[2022-08-26] MEDS: amLODIPine BESYLATE 5 MG TAB PO SCH (08:40)
--- NOTE | 2022-08-26 12:03 | Discharge Summary ---
Discharge Summary Date of Service August 26, 2022 Notes For Next Care Provider Medication Changes From Visit see [facility] rec Admission HPI Per Admitting Provider Ms. Uribe is a 82-year-old female that presented to the ED today with complaints of shortness of breath and dizziness that started in [place] on Tuesday. She started to feel racing in her chest , along with dizziness. She went home and took her blood pressure. Her granddaughter is a nurse and said that her BP was 90/60. They decided to hold her Metoprolol last night. On arrival to the ED she was found to have a rapid atrial tachycardia. Metoprolol 5 mg IV x2 administered and one dose of Adenosine 6 mg given which did drop her rate initially, but she returned to 130-140. Patient overall denies chest pain or orthopnea. She has a known history of atrial fibrillation which has been intermittently symptomatic and previously not responsive to medication treatment. She did not take her metoprolol or lisinopril last night due to reported hypotension. Patient was evaluated through the ED on 08/05/2022 for similar symptoms. Patient's pacemaker was interrogated and no arrhythmias or battery life concerns were noted. Patient's symptoms resolved and she was released home at that time. Patient follows with Dr. Betancur and Demarco Suh PA-C from Cardiology as an outpatient. An ECHO was done on 06/08/2022: EF 60 to 64%, LV wall thickness mildly increased, LV wall motion normal; cardiomegaly noted grade 2 diastolic dysfunction, mild aortic valve regurgitation, mild to moderate mitral regurgitation, mild tricuspid regurgitation and mild pulmonary hypertension with PASP 43mm Hg. Additional PMH includes AF (on Coumadin), complex atrial tachycardia, non- rheumaatic aortic valve insufficiency, HTN, HLD, history of GI bleed, history of CHI, TISHA. Patient did undergo a ablation at [facility] in 2013. She was treated with flecainide, sotalol and amiodarone. Patient sitting in her hospital bed in no apparent distress. Patient denies headache, dizziness, shortness of breath, nausea, vomiting, diarrhea, abdominal pain, numbness or tingling, recent swelling, recent falls or trauma, visual or auditory changes. She denies any urinary changes. On exam, patient appears in no apparent distress. She states that she can feel palpitations at this time. She does have cardioversion patches on. Trace bilateral LE edema. Does not appear toxic and denies any recent illness. She does take Spironolactone M/W/F. Patient was seen by Cardiology; was given Digoxin and converted to NSR. Will continue home meds. Patient will be admitted for further evaluation and management. Please see A/P for further details. Principal Dx & Hospital Course #1 = Principal Diagnosis (1) Atrial fibrillation: (2) Shortness of breath: (3) Weakness: (4) FEDERICO (acute kidney injury): (5) HLD (hyperlipidemia): Plan 82-year-old female presenting with shortness of breath and dizziness along with a feeling of her heart racing in her chest. She was admitted with atrial fibrillation with rapid ventricular response. In the ER she was given adenosine followed by Lopressor 5 mg IV x2. She is on Coumadin with therapeutic INR as well as metoprolol and flecainide at baseline. These were continued. She has a historically poor response to amiodarone in the past. Cardiology was consulted. She spontaneously converted prior to arriving to the floor but then shortly after arriving went back into atrial fibrillation with a rapid ventricular response with a heart rate in the 130s. Diltiazem bolus and drip was started. She converted again to sinus rhythm after the diltiazem bolus. In the midst of this she was also loaded with digoxin 500 mcg IV. She was given gentle rehydration with intravenous fluids. She did not require any further diltiazem drip and remained in sinus rhythm. The following day she was feeling better and by discharge she was symptom-free, ambulating and mentating at baseline and tolerating p.o. She was afebrile and oxygenating well on room air. She was discharged home in stable condition with no significant change to her medical therapy. Outpatient follow-up with cardiology was advised. Discharge Exam CONSTITUTIONAL: WNWD, vitals as above, generally well-appearing, NAD EYES: normal conjunctivae, no scleral icterus ENT: external ear and nose normal, MMM NECK: trachea midline RESPIRATORY: clear to auscultation bilaterally, no crackles, rales or wheezes, normal respiratory effort CARDIOVASCULAR: regular rate and rhythm, S1 and 2 heard without murmurs, gallops or rubs, no JVD, no peripheral edema CHEST: inspection of chest was normal GASTROINTESTINAL: soft, nontender, ND, no guarding MUSCULOSKELETAL: strength 5/5 throughout, head is normocephalic and atraumatic SKIN: warm and dry, NEUROLOGIC: CN 2-12 grossly intact, no sensory deficit, normal cognition, normal speech, no tremor PSYCHIATRIC: alert cooperative and oriented to person, place and time. Updated Medication List Medication Instructions Recorded Confirmed Type amlodipine 5 mg tablet 5 mg PO QAM 05/29/18 08/24/22 History flecainide 100 mg tablet 100 mg PO BID 05/29/18 08/24/22 History pravastatin 40 mg tablet 40 mg PO HS 05/29/18 08/24/22 History potassium chloride 10 mEq 10 meq PO QAM 06/05/18 08/24/22 History tablet,extended release(part/cryst) (Klor-Con M) lansoprazole 30 mg capsule,delayed 30 mg PO DAILYBB 04/10/21 08/24/22 History release (Prevacid) metoprolol tartrate 50 mg tablet 50 mg PO BID 09/05/21 08/24/22 History spironolactone 25 mg tablet 12.5 mg PO MOWEFR 09/05/21 08/24/22 History warfarin 2.5 mg tablet 2.5 mg PO 5XWK 09/05/21 08/24/22 History calcium carbonate 600 mg calcium 600 mg PO DAILY 09/06/21 08/24/22 History (1,500 mg) tablet (Calcium) cholecalciferol (vitamin D3) 50 50 mcg PO DAILY 09/06/21 08/24/22 History mcg (2,000 unit) tablet (Vitamin D3) warfarin 2.5 mg tablet 5 mg PO 2XWK 08/05/22 08/24/22 History lisinopril 10 mg tablet 10 mg PO BID #60 tabs 08/26/22 Rx Hospital Stay Data Pending Results Patient Have Any Pending Studies at Discharge: No Discharge Instructions Given to Patient (Per Discharging Provider) Please continue all medications as outlined on discharge list below. It is recommended that you follow-up with an product management consultant for further evaluation of your heart rhythm. This referral is being placed by [facility] for you and someone will contact you to set this up. You are scheduled for a hospital follow-up appointment with Dr. Goodson on 08/31. It was a pleasure taking care of you! Please call if you have any questions or problems. You can reach a [facility] hospitalist on duty at [facility] 24 hours a day by calling [phone]. Take care of yourself. Brianna Soto, [facility] Diegoist Total Time Total Time Spent Total Time Spent (In Minutes): 60
== END 2022-08-26 13:59 | disposition home or self-care (01) | DRG 309 ==
LOC: ED 09:26 → 2E 12:11 → SUATTDRO 12:11 → 2E 15:07
DX: E78.5 Hyperlipidemia, unspecified; I45.10 Unspecified right bundle-branch block; I12.9 Hypertensive chronic kidney disease with stage 1 through stage 4 chronic kidney disease, or unspecified chronic kidney disease; I35.1 Nonrheumatic aortic (valve) insufficiency; N18.30 Chronic kidney disease, stage 3 unspecified; I48.91 Unspecified atrial fibrillation; Z95.0 Presence of cardiac pacemaker; N17.9 Acute kidney failure, unspecified; I48.92 Unspecified atrial flutter; E86.0 Dehydration; Z88.0 Allergy status to penicillin; I49.5 Sick sinus syndrome; K21.9 Gastro-esophageal reflux disease without esophagitis; Z79.01 Long term (current) use of anticoagulants; I47.1 Supraventricular tachycardia

== ENCOUNTER 2023-03-09 10:44 | Inpatient (IN) ==
[2023-03-09 11:34] LABS: Basophils # (auto) 0.03 K/uL (0.00-0.20); Basophils % (auto) 0.4 %; Eosinophils # (auto) 0.07 K/uL (0.00-0.50); Hematocrit (blood only) 42.7 % (37.0-47.0); Hemoglobin 14.4 g/dl (12.0-16.0); Immature Granulocytes # (auto) 0.02 K/uL (0.01-0.20); Immature Granulocytes % (auto) 0.3 %; Lymphocytes # (auto) 1.17 K/uL (1.20-3.40); Lymphocytes % (auto) 16.3 %; Mean Corpuscular Hemoglobin 29.8 pg (25.0-34.0); Mean Corpuscular Hgb Conc 33.7 g/dL (32.0-36.0); Mean Corpuscular Volume 88.4 fL (80.0-100.0); Mean Platelet Volume 10.9 fL (9.4-12.4); Monocytes # (auto) 0.33 K/uL (0.11-0.59); Monocytes % (auto) 4.6 %; Neutrophils # (auto) 5.58 K/uL (1.40-6.50); Neutrophils % (auto) 77.4 %; Platelet Count 258 K/uL (130-400); RDW Coefficient of Variation 13.8 % (11.5-14.5); RDW Standard Deviation 44.5 fL (36.4-46.3); Red Blood Count 4.83 M/uL (4.20-5.40)
--- NOTE | 2023-03-09 11:37 | XRay Report ---
SINGLE VIEW CHEST CLINICAL HISTORY: Atypical chest pain FINDINGS: An AP, portable, upright chest radiograph is compared to study dated 08/24/2022. A 2-lead ca rdiac pacemaker is unchanged in position. The heart is enlarged. The pulmonary vasculature is noncong ested. Chronic interstitial thickening is somewhat previous. There is bibasilar scarring/atelectasis. The lungs and pleural spaces are otherwise clear. No pneumothorax is seen. The skeletal structures a re osteopenic. The bony thorax is grossly intact. Cholecystectomy clips are seen in the right upper q uadrant. IMPRESSION: 1. Cardiomegaly and cardiac pacemaker without radiographic evidence of congestive failure. 2. No airspace consolidation or large pleural effusion is identified. ACT 112: Negative or not required by law. Electronically signed by: Pepe Whittington M.D. 03/09/2023 11:36 AM
[2023-03-09 11:45] LABS: Anion Gap 8 (3-11); BUN Creatinine Ratio 18.5 (10-20); Blood Urea Nitrogen 22 mg/dl (6-23); Calcium 9.1 mg/dl (8.6-10.3); Carbon Dioxide 27 mmol/L (21-32); Chloride 101 mmol/L (98-107); Est GFR (African American) 49.9 ml/min; Est GFR (Non-African American) 43.1 ml/min; Glucose 196 mg/dl (70-99(Fasting)); Lipase 35 U/L (11-82); Potassium 3.8 mmol/L (3.5-5.1); Sodium 136 mmol/L (136-145)
[2023-03-09 11:54] LABS: Troponin I High Sensitivity 5.3 pg/ml (0-14)
[2023-03-09 12:03] LABS: INR 2.6 (0.9-1.1); Partial Thromboplastin Ratio 1.3; Partial Thromboplastin Time 38 Seconds (21-31); Prothrombin Time 26.7 Seconds (9.0-12.0)
--- NOTE | 2023-03-09 12:19 | Emergency Department Note ---
History of Present Illness General Chief Complaint: Syncope (Near Syncope) Stated Complaint: ALMOST PASSED OUT, HEART RACING Time Seen by Provider: 03/09/23 11:04 History of Present Illness Provider Complaint: + palpitations Onset (ago): 2 day(s) Duration: + Intermittent Context: + occurred during rest Arrhythmia history: + atrial fibrillation and + on anti-coagulants (Coumadin. Last INR was 2.9) Associated symptoms: + near-syncope; no chest pain, no shortness of breath, no syncope, no nausea, no vomiting or no cough HPI narrative: No fall or close head injury. Home Medications Medication Instructions Recorded Confirmed Type amlodipine 5 mg tablet 5 mg PO QAM 05/29/18 03/09/23 History flecainide 100 mg tablet 100 mg PO BID 05/29/18 03/09/23 History pravastatin 40 mg tablet 40 mg PO HS 05/29/18 03/09/23 History potassium chloride 10 mEq 10 meq PO QAM 06/05/18 03/09/23 History tablet,extended release(part/cryst) (Klor-Con M) lansoprazole 30 mg capsule,delayed 30 mg PO DAILYBB 04/10/21 03/09/23 History release (Prevacid) metoprolol tartrate 50 mg tablet 50 mg PO BID 09/05/21 03/09/23 History spironolactone 25 mg tablet 12.5 mg PO MOWEFR 09/05/21 03/09/23 History warfarin 2.5 mg tablet 0 mg PO DAILY 09/05/21 03/09/23 History calcium carbonate 600 mg calcium 600 mg PO DAILY 09/06/21 03/09/23 History (1,500 mg) tablet (Calcium) cholecalciferol (vitamin D3) 50 50 mcg PO DAILY 09/06/21 03/09/23 History mcg (2,000 unit) tablet (Vitamin D3) lisinopril 10 mg tablet 10 mg PO BID #60 tabs 08/26/22 03/09/23 Rx Allergies Allergy/AdvReac Type Severity Reaction Status Date / Time Penicillins Allergy Unknown RASH Verified 03/09/23 15:19 Past Med/Surg History Medical History Pacemaker HLD (hyperlipidemia) FEDERICO (acute kidney injury) Weakness Shortness of breath Hiatal hernia Upper GI bleed Compression fracture of T11 vertebra HTN (hypertension) Atrial fibrillation Obstructive sleep apnea CKD (chronic kidney disease) stage 3, GFR 30-59 ml/min GERD (gastroesophageal reflux disease) Surgical History S/P cholecystectomy Social History Smoking Status: Never smoker Second Hand Exposure: No; Do You Dip or Chew Tobacco: No; Hx Alcohol Use: No Hx Substance Use: No Preferred Language: American Communication Ability: Effective Visual Impairment: No Limitations Hearing Ability: Normal Health Information Technician Required: No Beliefs That Will Affect Care: None Current Living Situation: Spouse Current Living Situation Comment: LIVES WITH Feels Safe at Home: Yes Assistive Devices: CPAP Physical Exam 2 Vital Signs: Vital Signs - 24 hr 03/09/23 10:50 03/09/23 12:40 03/09/23 12:52 Temperature 36.6 C Temperature Source Temporal Artery Sc an Pulse Rate 117 H 111 H 113 H Pulse Rate [Apical ] Respiratory Rate 20 23 Respiratory Effort / Characteristics Non-Labored Respiratory Depth Normal Blood Pressure 107/76 104/73 Blood Pressure [Ri ght Arm] Blood Pressure [place] n 86 83 Blood Pressure [place] n [Right Arm] Blood Pressure Pos ition [Right Arm] Pulse Oximetry 96 Oxygen Delivery Me thod Room Air Sepsis Recent Feve r Within 48 Hours No Sepsis New/Unexpla ined Change in Men bernarda Status No Sepsis Action Take n by Nursing No Action Required 03/09/23 14:44 Temperature Temperature Source Pulse Rate Pulse Rate [Apical ] 116 H Respiratory Rate 18 Respiratory Effort / Characteristics Respiratory Depth Normal Blood Pressure Blood Pressure [Ri ght Arm] 119/83 Blood Pressure Azalea n Blood Pressure Azalea n [Right Arm] 95 Blood Pressure Pos ition [Right Arm] Semi-fowlers Pulse Oximetry 95 Oxygen Delivery Me thod Room Air Sepsis Recent Feve r Within 48 Hours Sepsis New/Unexpla ined Change in Men bernarda Status Sepsis Action Take n by Nursing Physical Exam: Physical Exam GENERAL: oriented to person, place, and time. appears well-developed and well- nourished. HENT: Exam performed. - Head: Normocephalic and atraumatic. EYES: Conjunctivae and EOM are normal. Right eye exhibits no discharge. Left eye exhibits no discharge. No scleral icterus. NECK: Normal range of motion. Neck supple. No JVD present. CV: Tachycardic rate, regular rhythm, normal heart sounds and intact distal pulses. There is no peripheral edema. Palpable radial pulses bue. PULM/CHEST: Effort normal and breath sounds normal. No respiratory distress. No stridor. no wheezes. no rales. ABD: The abdomen is soft. There is no tenderness. NEURO: Motor and sensation grossly intact. SKIN: Skin is warm and dry. He is not diaphoretic. PSYCH: normal mood and affect. Behavior is normal. Judgment and thought content normal. Course Course 1104: The patient was evaluated in room B8. A complete history and physical exam was performed Cardiac monitoring: An order was placed for continuous cardiac monitoring. The monitor shows a rate of 110 with sinus tachycardia rhythm interpreted by me 1224: Patient remains in a sinus tachycardia rhythm with a rate in the low 110s. Patient does have a pacemaker but she is not currently pacing. Will interrogate her pacemaker. INR is therapeutic. Labs are otherwise unremarkable. 1411: CT of the head within normal limits. Discussed case with Dr. Gibson Ca cardiology who said he will be down to evaluate the patient. 1422: Dr. Arreaga and his team are at bedside I think the patient presented atrial flutter. They are recommending admitting the patient to the hospitalist team they will put admission orders to help with the atrial flutter. Administered Medications Discontinued Medications Potassium Chloride (Potassium Chloride Crtab 20 Meq Tabcr) 40 meq PO NOW STA Stop: 03/09/23 15:07 Last Admin: 03/09/23 15:21 Dose: 40 meq Documented By: ARIELLA Medical Decision Making Medical Records Attestation: I reviewed the patient's medical records. External medical records reviewed. There is a cardiology consultation from July [address] Betancur which states that the patient has had atrial fibrillation which is very symptomatic and previously refractory to drug treatment. Patient underwent a PVI in 2013 and had been on flecainide sotalol and amiodarone and was unable to tolerate the amiodarone. In 2014 flecainide was resumed and metoprolol combination seem to be fairly effective. 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 Patient was seen in the emergency department in July 2022 and had a tachycardia and needed to be given 2 dose of IV metoprolol as well as a bolus of IV adenosine which did not help her arrhythmia. While the patient was admitted in July 2022 the patient was given Cardizem bolus and drip and according to no data loaded with 1 dose of digoxin 500 mcg. According to the discharge summary the patient was not discharged with any digoxin. Laboratory Data Attestation: I reviewed the patient's lab results. 03/09/23 11:03 03/09/23 11:03 Lab Results 03/09/23 Range/Units 11:03 WBC 7.20 (4.8-10.8) K/ul RBC 4.83 (4.20-5.40) M/uL Hgb 14.4 (12.0-16.0) g/dl Hct 42.7 (37.0-47.0) % MCV 88.4 (80.0-100.0) fL MCH 29.8 (25.0-34.0) pg MCHC 33.7 (32.0-36.0) g/dL RDW Std Deviation 44.5 (36.4-46.3) fL RDW Coeff of [place] 13.8 (11.5-14.5) % Plt Count 258 (130-400) K/uL MPV 10.9 (9.4-12.4) fL Immature Gran % (Auto) 0.3 % Neut % (Auto) 77.4 % Lymph % (Auto) 16.3 % [place] % (Auto) 4.6 % Eos % (Auto) 1.0 % Baso % (Auto) 0.4 % Neut # (Auto) 5.58 (1.40-6.50) K/uL Lymph # (Auto) 1.17 L (1.20-3.40) K/uL [place] # (Auto) 0.33 (0.11-0.59) K/uL Eos # (Auto) 0.07 (0.00-0.50) K/uL Baso # (Auto) 0.03 (0.00-0.20) K/uL Immature Gran # (Auto) 0.02 (0.01-0.20) K/uL PT 26.7 H (9.0-12.0) Seconds INR 2.6 H (0.9-1.1) APTT 38 H (21-31) Seconds PTT Ratio 1.3 Sodium 136 (136-145) mmol/L Potassium 3.8 (3.5-5.1) mmol/L Chloride 101 (98-107) mmol/L Carbon Dioxide 27 (21-32) mmol/L Anion Gap 8 (3-11) BUN 22 (6-23) mg/dl Creatinine 1.19 (0.6-1.2) mg/dl Est Cr Clr Drug Dosing Not Reportable Est GFR ( Amer) 49.9 ml/min Est GFR (Non-Af Amer) 43.1 ml/min BUN/Creatinine Ratio 18.5 (10-20) Glucose 196 H (70-99(Fasting)) mg/dl Calcium 9.1 (8.6-10.3) mg/dl Troponin I High Sens 5.3 (0-14) pg/ml Lipase 35 (11-82) U/L Imaging Data Attestation: I personally reviewed and interpreted this imaging study as follows: My Impression: Chest x-ray negative. Airway clear. No pneumothorax. No consolidation. No cardiomegaly or cephalization.. No free air under the diaphragm. No fractures of the skeletal structures. Pacemaker in place with no fracture or bleeds. Radiologist's Impression: Chest X-Ray 03/09/23 11:13 SINGLE VIEW CHEST CLINICAL HISTORY: Atypical chest pain FINDINGS: An AP, portable, upright chest radiograph is compared to study dated 08/24/2022. A 2-lead cardiac pacemaker is unchanged in position. The heart is enlarged. The pulmonary vasculature is noncongested. Chronic interstitial thickening is somewhat previous. There is bibasilar scarring/atelectasis. The lungs and pleural spaces are otherwise clear. No pneumothorax is seen. The skeletal structures are osteopenic. The bony thorax is grossly intact. Cholecystectomy clips are seen in the right upper quadrant. IMPRESSION: 1. Cardiomegaly and cardiac pacemaker without radiographic evidence of congestive failure. 2. No airspace consolidation or large pleural effusion is identified. ACT 112: Negative or not required by law. Electronically signed by: Pepe Whittington M.D. 03/09/2023 11:[address] 03/09/23 11:13 CT OF THE HEAD WITHOUT CONTRAST CLINICAL HISTORY: Near syncope. COMPARISON STUDY: Head CT 09/05/2021. CT DOSE: 703.85 mGy.cm TECHNIQUE: Helical axial images of the head were obtained without IV contrast. Automated exposure control was utilized for the study. A dose lowering technique was utilized adhering to the principles of ALARA. FINDINGS: This study is mildly compromised by motion artifact. No acute intracranial hemorrhage, midline shift or mass effect is present. Bilateral basal ganglia calcifications are present. There are linear calcifications within the bilateral cerebellar hemispheres. In addition, scattered linear sulcal calcified densities are unchanged since prior head CT and favor calcified vessels. The appearance of the brain is unchanged. No findings to suggest acute dural sinus thrombosis or acute territorial infarct. White matter hypodensity suggests small vessel disease. IMPRESSION: 1. No acute intracranial findings. 2. No change in appearance of the brain. Calcified cortical vessels, as described above. ACT 112: Negative or not required by law. Electronically signed by: Vladislav Lopez M.D. 03/09/2023 1:54 PM ECG Data Attestation: I personally reviewed and interpreted this ECG as follows: Additional Comments: Sinus tachycardia with a rate of 115. MO 224 QRS [address] elevation or ST depression. No significant change from the EKG done in August 2022 which showed an atrial paced rhythm. MDM Narrative 1104: The patient was evaluated in room B8. A complete history and physical exam was performed Cardiac monitoring: An order was placed for continuous cardiac monitoring. The monitor shows a rate of 110 with sinus tachycardia rhythm interpreted by me 1224: Patient remains in a sinus tachycardia rhythm with a rate in the low 110s. Patient does have a pacemaker but she is not currently pacing. Will interrogate her pacemaker. INR is therapeutic. Labs are otherwise unremarkable. 1411: CT of the head within normal limits. Discussed case with Dr. Gibson Ca cardiology who said he will be down to evaluate the patient. 1422: Dr. Arreaga and his team are at bedside I think the patient presented atrial flutter. They are recommending admitting the patient to the hospitalist team they will put admission orders to help with the atrial flutter. Impression & Plan Atrial flutter Discharge Plan Visit Data Chief Complaint: Syncope (Near Syncope) Stated Complaint: ALMOST PASSED OUT, HEART RACING ED Provider: Andrew Cruz Prescriptions Prescriptions: No Action pravastatin 40 mg tablet 40 mg PO HS amlodipine 5 mg tablet 5 mg PO QAM flecainide 100 mg tablet 100 mg PO BID potassium chloride [Klor-Con M10] 10 mEq tablet,ER particles/crystals 10 meq PO QAM lansoprazole [Prevacid] 30 mg capsule,delayed release(DR/EC) 30 mg PO DAILYBB metoprolol tartrate 50 mg tablet 50 mg PO BID Rx Instructions: 1/2 tablet dose warfarin 2.5 mg tablet 0 mg PO DAILY Rx Instructions: Take 5mg by mouth on Tuesday @1600, and take 2.5mg by mouth /Tue//Tue/Tue/Sun @1600 spironolactone 25 mg tablet 12.5 mg PO Rx Instructions: 12.5mg by mouth on Tue/Tue/Tue calcium carbonate [Calcium 600] 600 mg calcium (1,500 mg) Tablet 600 mg PO DAILY cholecalciferol (vitamin D3) [Vitamin D3] 50 mcg (2,000 unit) Tablet 50 mcg PO DAILY lisinopril 10 mg Tablet 10 mg PO BID Qty: 60 0RF Discharge Problem:
--- NOTE | 2023-03-09 13:56 | CT Scan Report ---
CT OF THE HEAD WITHOUT CONTRAST CLINICAL HISTORY: Near syncope. COMPARISON STUDY: Head CT 09/05/2021. CT DOSE: 703.85 mGy.cm TECHNIQUE: Helical axial images of the head were obtained without IV contrast. Automated exposure con trol was utilized for the study. A dose lowering technique was utilized adhering to the principles o f ALARA. FINDINGS: This study is mildly compromised by motion artifact. No acute intracranial hemorrhage, midl ine shift or mass effect is present. Bilateral basal ganglia calcifications are present. There are li near calcifications within the bilateral cerebellar hemispheres. In addition, scattered linear sulcal calcified densities are unchanged since prior head CT and favor calcified vessels. The appearance of the brain is unchanged. No findings to suggest acute dural sinus thrombosis or acute territorial inf arct. White matter hypodensity suggests small vessel disease. IMPRESSION: 1. No acute intracranial findings. 2. No change in appearance of the brain. Calcified cortical vessels, as described above. ACT 112: Negative or not required by law. Electronically signed by: Vladislav Lopez M.D. 03/09/2023 1:54 PM
[2023-03-09] MEDS ORDERED: POTASSIUM CHLORIDE CRTAB 20 MEQ TABCR PO STA (15:06)
--- NOTE | 2023-03-09 15:12 | Cardiology Progress Note ---
Date of Service March 09, 2023 Supervising Physician Co-Signing Physician Notes Attending Staff: Pt seen and evaluated with AP Staff Concur with observations and plans 82 yo woman presenting with new-onset aflutter/fib On chronic coumadin sans major bleeding LVEF 60-65% MR - mild to moderate; no Plans: * Admit to [facility] * Continue Coumadin * Goal INR 2-3 * Current INR 2.6 - has been therapeutic since 08/2022 * K+ goal 4.5-5 * Kdur 40 meq po x 1 * Mag goal >2 * Check TSH * ECHOcardiogram - pending * Pt appears euvolemic * Start Lopressor 50 mg po TID * Hold other antihypertensive in event that she needs more beta blockers * Consider DC Cardioversion in AM on 03/10/2023 * NPO past MN * EP evaluation for possible repeat Ablation. * EKG - review - possible aflutter with 2:1 conduction. Pankaj Arreaga Subjective ID: 82 yo woman presenting with palpitations Pt noted palpitations Presentation reminiscent of prior presentations with atrial arrhythmias Presented to ED * No chest pain/pressure * No dyspnea with exertion or at rest * No LE edema * No PND * No orthopnea * No pre or emely syncope * ECHO - 05/2022 - LVEF 60-65%, AI- mild, MR - mild to moderate. LA - severely enlarged * Device interrogation 01/2023 - Afib burden <1% Cardiac HX: * Atrial Fibrillation * PVI ablation 2013 * Rx with Flecainide and Sotalol in the past * Amiodarone - used - led to significant GI upset * Recurrent Afib 2014 * Tachy/Pete - Dual Chamber pacer * AI * MR * HTN * TISHA on CPAP Review of Systems Review of Systems: All systems reviewed & are unremarkable except as noted in HPI & below Physical Exam Physical Exam: Slightly overweight No elevation in JVP S1S2 - tachy 2/6 systolic murmur CTA B + BS No C/C/E Warm and perfusing No neurologic deficits noted Results & Data Vital Signs (Past 12 Hours) Vital Signs Temp Pulse Resp BP Pulse Ox O2 Del Method 03/09/23 12:52 113 H 23 104/73 03/09/23 12:40 111 H 03/09/23 10:50 36.6 C 117 H 20 107/76 96 Room Air Laboratory Results Cardiac Enzymes 03/09/23 Range/Units 11:03 Troponin I High Sens 5.3 (0-14) pg/ml Coagulation 03/09/23 Range/Units 11:03 PT 26.7 H (9.0-12.0) Seconds APTT 38 H (21-31) Seconds CBC 03/09/23 Range/Units 11:03 WBC 7.20 (4.8-10.8) K/ul RBC 4.83 (4.20-5.40) M/uL Hgb 14.4 (12.0-16.0) g/dl Hct 42.7 (37.0-47.0) % Plt Count 258 (130-400) K/uL Neut # (Auto) 5.58 (1.40-6.50) K/uL Lymph # (Auto) 1.17 L (1.20-3.40) K/uL [place] # (Auto) 0.33 (0.11-0.59) K/uL Eos # (Auto) 0.07 (0.00-0.50) K/uL Baso # (Auto) 0.03 (0.00-0.20) K/uL Comprehensive Metabolic Panel 03/09/23 Range/Units 11:03 Sodium 136 (136-145) mmol/L Potassium 3.8 (3.5-5.1) mmol/L Chloride 101 (98-107) mmol/L Carbon Dioxide 27 (21-32) mmol/L BUN 22 (6-23) mg/dl Creatinine 1.19 (0.6-1.2) mg/dl Glucose 196 H (70-99(Fasting)) mg/dl Calcium 9.1 (8.6-10.3) mg/dl Medications Administered Pending
--- NOTE | 2023-03-09 15:53 | History & Physical Report ---
Date of Service March 09, 2023 Assessment & Plan (1) Atrial fibrillation with RVR: (2) Atrial flutter: (3) Palpitations: Plan: Patient is a 82-year-old female with PMH paroxysmal atrial fibrillation anticoagulated on warfarin, history of ablation 2013 with recurrent A-fib, on flecainide, tachybradycardia syndrome s/p pacemaker 2021, grade 2 diastolic dysfunction, HTN, HLD, GERD, TISHA, essential tremor presented to ER with complaint of palpitations started yesterday. In ER tachycardic up to 120. TSH: 1.2, HS troponin negative. CXR: No acute infiltrate Echo pending INR: 2.6. Continue warfarin Continue flecainide Cardiology consulted. Saw patient in ER. Feels rhythm consistent with atrial flutter/atrial fibrillation Increase metoprolol to tartrate from 50 mg twice daily to 50 mg 3 times daily per cardiology recommendations Magnesium: 1.8. Will give magnesium sulfate 1 g IV to try to maintain magnesium level> 2 K: 3.8. Was given KCl 40 mEq p.o. Monitor K level to try to maintain >4 NPO midnight for possible cardioversion tomorrow CBC, BMP, INR, magnesium in a.m. EKG in a.m. (4) Tachy-syed syndrome: Plan: S/P pacemaker Pacemaker interrogation completed in ER, was not available for review yet (5) Elevated glucose: Plan: Random glucose: 196 today A1c 5.3 on 09/30/2022 NovoLog sliding scale correction for now as will be n.p.o. at midnight A1c in a.m. (6) HTN (hypertension): Plan: Hold amlodipine, lisinopril, spironolactone per cardiology recommendations in case patient requires increased beta-blockers (7) HLD (hyperlipidemia): Plan: Continue pravastatin (8) CKD (chronic kidney disease) stage 3, GFR 30-59 ml/min: Plan: Cr: 1.2. Baseline 1.1 per outpatient chart review (9) GERD (gastroesophageal reflux disease): Plan: Continue PPI (10) Obstructive sleep apnea: Plan: Continue CPAP at bedtime DVT Prophylaxis On warfarin. INR therapeutic Full Code as per discussion with pt Follows with Dr Goodson for routine care Pt was seen and care coordinated with Dr Lyn. See addendum History of Present Illness Chief Complaint: Palpitations Primary Care Provider: Gregory Goodson MD Patient is a 82-year-old female with PMH paroxysmal atrial fibrillation anticoagulated on warfarin, history of ablation 2013 with recurrent A-fib, on flecainide, tachybradycardia syndrome s/p pacemaker 2021, grade 2 diastolic dysfunction, HTN, HLD, GERD, TISHA, essential tremor presented to ER with complaint of palpitations started yesterday. Patient states yesterday evening was sitting watching TV when she had onset of palpitations stating "heart felt like it was not beating correctly". Describes it as a fluttering sensation. Denies pounding or racing sensation of heart. States last night did feel dizzy with walking around. Denies any shortness of breath or chest pain. Palpitation symptoms were present upon awakening today. Patient states ate breakfast at [employer] and was standing to pay bill felt lightheaded like she was in a pass out. Denies syncopal event. Came to ER for further evaluation. In ER patient noted to be tachycardic and initial thought was sinus tachycardia on monitor. Cardiology was consulted and felt it was atrial flutter/fibrillation. Pacemaker interrogation has been ordered in ER but had not yet been reviewed. Patient states 1 month ago had some sinus congestion and cough productive of green phlegm. Patient states symptoms improved however still has intermittent episodes of coughing typically once a day. Patient reports right leg chronically larger than left leg and tends to swell more, resolves with elevating legs. Denies fever/chills, diaphoresis, N/V/D/C, MARTINEZ, vision changes, neck pain, orthopnea, hemoptysis, sore throat, abdominal pain, paresthesias, weakness, rashes, urinary symptoms. Allergies Allergy/AdvReac Type Severity Reaction Status Date / Time Penicillins Allergy Unknown RASH Verified 03/09/23 15:19 Home Medications Medication Instructions Recorded Confirmed Type amlodipine 5 mg tablet 5 mg PO QAM 05/29/18 03/09/23 History flecainide 100 mg tablet 100 mg PO BID 05/29/18 03/09/23 History pravastatin 40 mg tablet 40 mg PO HS 05/29/18 03/09/23 History potassium chloride 10 mEq 10 meq PO QAM 06/05/18 03/09/23 History tablet,extended release(part/cryst) (Klor-Con M) lansoprazole 30 mg capsule,delayed 30 mg PO DAILYBB 04/10/21 03/09/23 History release (Prevacid) metoprolol tartrate 50 mg tablet 50 mg PO BID 09/05/21 03/09/23 History spironolactone 25 mg tablet 12.5 mg PO MOWEFR 09/05/21 03/09/23 History warfarin 2.5 mg tablet 0 mg PO DAILY 09/05/21 03/09/23 History calcium carbonate 600 mg calcium 600 mg PO DAILY 09/06/21 03/09/23 History (1,500 mg) tablet (Calcium) cholecalciferol (vitamin D3) 50 50 mcg PO DAILY 09/06/21 03/09/23 History mcg (2,000 unit) tablet (Vitamin D3) lisinopril 10 mg tablet 10 mg PO BID #60 tabs 08/26/22 03/09/23 Rx Past Med/Surg History Medical History (Updated 03/09/23 @ 16:50 by Lisa Rapp PA-C) Tachy-syed syndrome History of pacemaker Pacemaker HLD (hyperlipidemia) FEDERICO (acute kidney injury) Weakness Shortness of breath Hiatal hernia Upper GI bleed Compression fracture of T11 vertebra HTN (hypertension) Atrial fibrillation Obstructive sleep apnea CKD (chronic kidney disease) stage 3, GFR 30-59 ml/min GERD (gastroesophageal reflux disease) Surgical History S/P cholecystectomy Family History (Updated 03/09/23 @ 16:46 by Lisa Rapp PA-C) Other Diabetes Hypertension Social History Smoking Status: Never smoker Second Hand Exposure: No; Do You Dip or Chew Tobacco: No; Hx Alcohol Use: No Hx Substance Use: No Preferred Language: Estonian Communication Ability: Effective Visual Impairment: No Limitations Hearing Ability: Normal Formulator Compounder Required: No Beliefs That Will Affect Care: None Current Living Situation: Spouse Current Living Situation Comment: LIVES WITH Feels Safe at Home: Yes Assistive Devices: CPAP Review of Systems Review of Systems: All systems reviewed & are unremarkable except as noted in HPI & below Physical Exam Physical Exam: General: no distress, WDWN Head: normocephalic, atraumatic Eyes: PERRL, conjunctiva non-injected, anicteric ENT: normal inspection external ears, nose, mucous membranes moist Neck: supple, trachea midline Lungs: clear, no respiratory distress, no wheezing/rhonchi/rales CV: tachycardia, appears regular, rate 116, +murmur, no pretibial edema Abd: normal BS, soft, non-tender Ext: no cyanosis, no calf tenderness Neuro: A&O x 3, no focal deficits noted, normal affect Skin: warm, dry Results & Data Results & Data Vital Signs (Past 12 Hours) Vital Signs Temp Pulse Pulse Resp BP BP Pulse Ox 03/09/23 14:44 116 H 18 119/83 95 03/09/23 12:52 113 H 23 104/73 03/09/23 12:40 111 H 03/09/23 10:50 36.6 C 117 H 20 107/76 96 O2 Del Method 03/09/23 14:44 Room Air 03/09/23 12:52 03/09/23 12:40 03/09/23 10:50 Room Air Laboratory Results Short CBC 03/09/23 Range/Units 11:03 WBC 7.20 (4.8-10.8) K/ul Hgb 14.4 (12.0-16.0) g/dl Hct 42.7 (37.0-47.0) % Plt Count 258 (130-400) K/uL BMP 03/09/23 11:03 Sodium 136 Potassium 3.8 Chloride 101 Carbon Dioxide 27 BUN 22 Creatinine 1.19 Glucose 196 H Calcium 9.1 Diagnostic Findings Chest X-Ray 03/09/23 11:13 SINGLE VIEW CHEST CLINICAL HISTORY: Atypical chest pain FINDINGS: An AP, portable, upright chest radiograph is compared to study dated 08/24/2022. A 2-lead cardiac pacemaker is unchanged in position. The heart is enlarged. The pulmonary vasculature is noncongested. Chronic interstitial thickening is somewhat previous. There is bibasilar scarring/atelectasis. The lungs and pleural spaces are otherwise clear. No pneumothorax is seen. The skeletal structures are osteopenic. The bony thorax is grossly intact. Cholecystectomy clips are seen in the right upper quadrant. IMPRESSION: 1. Cardiomegaly and cardiac pacemaker without radiographic evidence of congestive failure. 2. No airspace consolidation or large pleural effusion is identified. ACT 112: Negative or not required by law. Electronically signed by: Pepe Whittington M.D. 03/09/2023 11:[address] 03/09/23 11:13 CT OF THE HEAD WITHOUT CONTRAST CLINICAL HISTORY: Near syncope. COMPARISON STUDY: Head CT 09/05/2021. CT DOSE: 703.85 mGy.cm TECHNIQUE: Helical axial images of the head were obtained without IV contrast. Automated exposure control was utilized for the study. A dose lowering technique was utilized adhering to the principles of ALARA. FINDINGS: This study is mildly compromised by motion artifact. No acute intracranial hemorrhage, midline shift or mass effect is present. Bilateral basal ganglia calcifications are present. There are linear calcifications within the bilateral cerebellar hemispheres. In addition, scattered linear sulcal calcified densities are unchanged since prior head CT and favor calcified vessels. The appearance of the brain is unchanged. No findings to suggest acute dural sinus thrombosis or acute territorial infarct. White matter hypodensity suggests small vessel disease. IMPRESSION: 1. No acute intracranial findings. 2. No change in appearance of the brain. Calcified cortical vessels, as described above. ACT 112: Negative or not required by law. Electronically signed by: Vladislav Lopez M.D. 03/09/2023 1:54 PM Supervising Physician Co-Signing Physician Notes Attending addendum The patient was seen and examined in the emergency room She has history of atrial fibrillation status post ablation was admitted with atrial flutter and palpitation without any chest pain Still has palpitation in the emergency room but denies any more chest pain She denies any other significant symptoms and will have cardioversion tomorrow On examination Lying in bed comfortably with palpitation and tachycardia of 116 Chest-clear to auscultate bilaterally Heart-S1-S2, irregular Abdomen-benign Extremities-trace edema bilaterally more on the left [employer]-alert, awake and oriented x 3 Her labs, EKG reviewed Has flutter with RVR with symptoms History of tachybradycardia syndrome status post dual-chamber pacer, hypertension and sleep apnea Appreciate cardiology input and recommendation for cardioversion tomorrow Agree with assessment and plan as outlined above by DASH Turpin Dr
[2023-03-09 15:57] LABS: Magnesium 1.8 mg/dl (1.7-2.4)
[2023-03-09 16:10] LABS: Thyroid Stimulating Hormone 1.246 uIu/ml (0.300-4.500)
[2023-03-09] MEDS ORDERED: METOPROLOL TARTRATE 50 MG TAB PO STA (16:29)
[2023-03-09] MEDS ORDERED: MAGNESIUM SULFATE / D5W 1 GM/100 ML BAG IV ONE (17:02)
[2023-03-09] MEDS ORDERED: GLUCOSE 10 TAB/TUBE PO PRN (17:24)
[2023-03-09] MEDS ORDERED: CARBOHYDRATES FOR HYPOGLYCEMIA PO PRN (17:24)
[2023-03-09] MEDS ORDERED: DEXTROSE 50% 50 ML SYRINGE IV PRN (17:24)
[2023-03-09] MEDS ORDERED: GLUCOSE 40% GEL 15 GM TUBE PO PRN (17:24)
[2023-03-09] MEDS ORDERED: POLYETHYLENE (MIRALAX) 17 GM PACK PO PRN (17:24)
[2023-03-09] MEDS ORDERED: GLUCAGON FOR INJ 1 MG VIAL SQ PRN (17:24)
[2023-03-09] MEDS ORDERED: ACETAMINOPHEN 325 MG TAB PO PRN (17:24)
[2023-03-09] MEDS: WARFARIN SOD 2.5 MG TAB PO SCH (18:53)
[2023-03-09] MEDS: FLECAINIDE ACETATE 100 MG TABLET PO SCH (20:19)
[2023-03-09] MEDS: PRAVASTATIN SOD 40 MG TAB PO SCH (20:19)
[2023-03-09] MEDS: INSULIN ASPART PER UNIT CHARGE SC SCH (20:20)
[2023-03-09] MEDS ORDERED: METOPROLOL TARTRATE 50 MG TAB PO SCH (21:00)
[2023-03-10] MEDS ORDERED: METOPROLOL TARTRATE 50 MG TAB PO STA (06:22)
[2023-03-10 06:30] LABS: Hematocrit (blood only) 40.9 % (37.0-47.0); Hemoglobin 13.3 g/dl (12.0-16.0); Mean Corpuscular Hemoglobin 29.4 pg (25.0-34.0); Mean Corpuscular Hgb Conc 32.5 g/dL (32.0-36.0); Mean Corpuscular Volume 90.3 fL (80.0-100.0); Mean Platelet Volume 10.5 fL (9.4-12.4); Platelet Count 199 K/uL (130-400); RDW Coefficient of Variation 13.6 % (11.5-14.5); RDW Standard Deviation 45.1 fL (36.4-46.3); Red Blood Count 4.53 M/uL (4.20-5.40)
[2023-03-10] MEDS ORDERED: NSS + 20MEQ KCL 20 MEQ/1,000 ML BAG IV ONE (06:30)
[2023-03-10] MEDS: PANTOprazole 40 MG TAB PO SCH (06:47)
--- NOTE | 2023-03-10 06:49 | Anesthesiology Consultation ---
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 w/Anesthesia - Pankaj Arreaga MD Height/Weight Height: 5 ft 5 in Weight: 72.1 kg Allergies Allergy/AdvReac Type Severity Reaction Status Date / Time Penicillins Allergy Unknown RASH Verified 03/09/23 15:19 Medications Home Medications Medication Instructions Recorded Confirmed Last Taken amlodipine 5 mg tablet 5 mg PO QAM 05/29/18 03/09/23 03/09/23 flecainide 100 mg tablet 100 mg PO BID 05/29/18 03/09/23 03/09/23 pravastatin 40 mg tablet 40 mg PO HS 05/29/18 03/09/23 03/08/23 potassium chloride 10 mEq 10 meq PO QAM 06/05/18 03/09/23 03/09/23 tablet,extended release(part/cryst) (Klor-Con M) lansoprazole 30 mg capsule,delayed 30 mg PO DAILYBB 04/10/21 03/09/23 03/09/23 release (Prevacid) metoprolol tartrate 50 mg tablet 50 mg PO BID 09/05/21 03/09/23 03/09/23 spironolactone 25 mg tablet 12.5 mg PO MOWEFR 09/05/21 03/09/23 03/09/23 warfarin 2.5 mg tablet 0 mg PO DAILY 09/05/21 03/09/23 03/08/23 calcium carbonate 600 mg calcium 600 mg PO DAILY 09/06/21 03/09/23 03/09/23 (1,500 mg) tablet (Calcium) cholecalciferol (vitamin D3) 50 50 mcg PO DAILY 09/06/21 03/09/23 03/09/23 mcg (2,000 unit) tablet (Vitamin D3) lisinopril 10 mg tablet 10 mg PO BID #60 tabs 08/26/22 03/09/23 03/09/23 Active Medications Generic Name Dose Route Start Last Admin Trade Name Freq PRN Reason Stop Dose Admin Flecainide Acetate 100 mg 03/09/23 21:00 03/09/23 20:19 Flecainide Acetate 100 Mg Tablet PO 04/08/23 20:59 100 mg BID CURLY Administration Insulin Aspart 0 units 03/09/23 21:00 03/09/23 20:20 Insulin Aspart Per Unit Charge SC 04/08/23 20:59 Not Given ACHS CURLY Pravastatin Sodium 40 mg 03/09/23 21:00 03/09/23 20:19 Pravastatin Sod 40 Mg Tab PO 04/08/23 20:59 40 mg HS CURLY Administration Warfarin Sodium 2.5 mg 03/09/23 18:00 03/09/23 18:53 Warfarin Sod 2.5 Mg Tab PO 04/08/23 17:59 2.5 mg [id number] CURLY Administration Past Medical History Medical History Tachy-syed syndrome History of pacemaker Pacemaker HLD (hyperlipidemia) FEDERICO (acute kidney injury) Weakness Shortness of breath Hiatal hernia Upper GI bleed Compression fracture of T11 vertebra HTN (hypertension) Atrial fibrillation Obstructive sleep apnea CKD (chronic kidney disease) stage 3, GFR 30-59 ml/min GERD (gastroesophageal reflux disease) Past Family History Family History Other Diabetes Hypertension Past Surgical History Surgical History S/P cholecystectomy Social History Smoking Status: Never smoker Do You Dip or Chew Tobacco: No Hx Alcohol Use: No Hx Substance Use: No Physical Exam Vital Signs Last Vital Signs Temp 98.2 F 03/10/23 03:15 Pulse 122 H 03/10/23 05:27 Resp 18 03/10/23 03:15 BP 118/80 03/10/23 03:15 Pulse Ox 96 03/10/23 03:15 O2 Del Method CPAP 03/10/23 03:15 Testing Laboratory Results 03/10/23 06:14 PT 26.7 Seconds (9.0-12.0) H 03/09/23 11:03 INR 2.6 (0.9-1.1) H 03/09/23 11:03 APTT 38 Seconds (21-31) H 03/09/23 11:03 03/09/23 20:05 POC Glucose 115 H Electrocardiogram Date: 08/26/22 Atrial-paced rhythm with prolonged AV conduction Left axis deviation Pulmonary disease pattern T-wave inversion in Anterior leads Abnormal ECG Chest X-Ray Date: 03/09/23 1. Cardiomegaly and cardiac pacemaker without radiographic evidence of congestive failure. 2. No airspace consolidation or large pleural effusion is identified.
[2023-03-10 07:07] LABS: INR 2.4 (0.9-1.1); Prothrombin Time 25.1 Seconds (9.0-12.0)
[2023-03-10] MEDS ORDERED: PROPOFOL IV EMULSION 10 MG/ML 20 ML VIAL IV ONE (07:24)
[2023-03-10] MEDS ORDERED: LIDOCAINE 2% 2 ML VIAL/AMP(20MG/ML) INFIL ONE (07:24)
[2023-03-10 07:26] LABS: Calcium 8.9 mg/dl (8.6-10.3); Magnesium 2.1 mg/dl (1.7-2.4); Potassium 4.7 mmol/L (3.5-5.1)
[2023-03-10 07:31] LABS: Creatinine Clr Calc Pharmacy 44.7 ml/min; Est GFR (African American) 61.6 ml/min; Est GFR (Non-African American) 53.2 ml/min
[2023-03-10 07:49] LABS: Estimated Average Glucose 108 mg/dl; Hemoglobin A1C 5.4 % (4.5-5.6)
--- NOTE | 2023-03-10 07:50 | Cardiology Progress Note ---
Date of Service March 10, 2023 Assessment & Plan Admission and Anticipated Discharge Date Admission Date: March 09, 2023 Subjective Events overnight: * None reported * Patient remains in Afib/flutter Subjective: * + Palpitations * No other complaints Review of Systems Review of Systems: All systems reviewed & are unremarkable except as noted in HPI & below Physical Exam Physical Exam: Slightly overweight No elevation in JVP S1S2 - tachy 2/6 systolic murmur CTA B + BS No C/C/E Warm and perfusing No neurologic deficits noted Results & Data Vital Signs (Past 12 Hours) Vital Signs Temp Pulse Pulse Resp BP Pulse Ox O2 Del Method 03/10/23 07:15 124 H 18 133/94 97 Room Air 03/10/23 05:27 122 H 03/10/23 03:15 36.8 C 119 H 18 118/80 96 CPAP 03/10/23 02:45 117 H 20 92 03/09/23 23:07 36.9 C 106 H 18 122/85 95 CPAP 03/09/23 22:50 112 H 19 97 Laboratory Results Cardiac Enzymes 03/09/23 Range/Units 11:03 Troponin I High Sens 5.3 (0-14) pg/ml Coagulation 03/09/23 03/10/23 Range/Units 11:03 06:14 PT 26.7 H 25.1 H (9.0-12.0) Seconds APTT 38 H (21-31) Seconds CBC 03/09/23 03/10/23 Range/Units 11:03 06:14 WBC 7.20 6.00 (4.8-10.8) K/ul RBC 4.83 4.53 (4.20-5.40) M/uL Hgb 14.4 13.3 (12.0-16.0) g/dl Hct 42.7 40.9 (37.0-47.0) % Plt Count 258 199 (130-400) K/uL Neut # (Auto) 5.58 (1.40-6.50) K/uL Lymph # (Auto) 1.17 L (1.20-3.40) K/uL [place] # (Auto) 0.33 (0.11-0.59) K/uL Eos # (Auto) 0.07 (0.00-0.50) K/uL Baso # (Auto) 0.03 (0.00-0.20) K/uL Comprehensive Metabolic Panel 03/09/23 03/10/23 Range/Units 11:03 06:14 Sodium 136 138 (136-145) mmol/L Potassium 3.8 4.7 D (3.5-5.1) mmol/L Chloride 101 105 (98-107) mmol/L Carbon Dioxide 27 28 (21-32) mmol/L BUN 22 23 (6-23) mg/dl Creatinine 1.19 1.00 (0.6-1.2) mg/dl Glucose 196 H 96 (70-99(Fasting)) mg/dl Calcium 9.1 8.9 (8.6-10.3) mg/dl Intake and Output 03/09/23 03/10/23 03/10/23 22:59 06:59 14:59 Intake Total 400 / 750 350 / 750 Output Total Balance 399 / 749 350 / 749 Intake: IV 100 / 100 Magnesium Sulfate / D5w 1 gm In 100 / 100 100 ml @ 50 mls/hr IV ONE ONE Rx#:[id number] Oral 300 / 650 350 / 650 Output: # Bowel Movements Other: # Unmeasured Voids 1 0 Weight 71.866 kg 72.1 kg 72.1 kg Weight Measurement Method Built in Bedscale Built in Bedscale Patient Weight 03/11/23 06:59 Weight 72.1 kg Medications Administered Current Inpatient Medications Acetaminophen (Acetaminophen 325 Mg Tab) 650 mg PO Q4H PRN PRN Reason: Pain or Fever Stop: 04/08/23 17:23 Calcium Carbonate (Calcium Carbonate 1250mg Tab) 1,250 mg PO DAILY CURLY Stop: 04/09/23 08:59 Dextrose (Dextrose 50% 50 Ml Syringe) 25 - 50 ml IV UD PRN; Protocol PRN Reason: Hypoglycemia Protocol Stop: 04/08/23 17:23 Flecainide Acetate (Flecainide Acetate 100 Mg Tablet) 100 mg PO BID CURLY Stop: 04/08/23 20:59 Last Admin: 03/09/23 20:19 Dose: 100 mg Glucagon (Glucagon For Inj 1 Mg Vial) 1 mg SQ UD PRN; Protocol PRN Reason: Hypoglycemia Protocol Stop: 04/08/23 17:23 Glucose (Glucose 10 Tab/Tube) 4 - 8 tab PO UD PRN; Protocol PRN Reason: Hypoglycemia Treatment Stop: 04/08/23 17:23 Glucose (Glucose 40% Gel 15 Gm Tube) 15 - 30 gm PO UD PRN; Protocol PRN Reason: Hypoglycemia Protocol Stop: 04/08/23 17:23 Potassium Chloride/Sodium Chloride (Normal Saline W/20 Meq Kcl) 20 meq in 1,000 mls @ 60 mls/hr IV .[id number] ONE; Protocol Stop: 03/10/23 23:09 Last Admin: 03/10/23 06:47 Dose: 60 mls/hr Insulin Aspart (Insulin Aspart Per Unit Charge) 0 units SC ACHS [facility] Stop: 04/08/23 20:59 Last Admin: 03/09/23 20:20 Dose: Not Given Metoprolol Tartrate (Metoprolol Tartrate 50 Mg Tab) 50 mg PO TID [facility] Stop: 04/09/23 13:59 Miscellaneous (Carbohydrates For Hypoglycemia ) 15 - 30 gm PO UD PRN PRN Reason: Hypoglycemia Protocol Stop: 04/08/23 17:23 Pantoprazole Sodium (Pantoprazole 40 Mg Tab) 40 mg PO DAILYBB [facility] Stop: 04/09/23 06:29 Last Admin: 03/10/23 06:47 Dose: 40 mg Polyethylene Glycol (Polyethylene (Miralax) 17 Gm Pack) 17 gm PO DAILY PRN PRN Reason: Constipation Stop: 04/08/23 17:23 Potassium Chloride (Potassium Chloride 10 Meq Tabcr) 10 meq PO QAM [facility] Stop: 04/09/23 08:59 Pravastatin Sodium (Pravastatin Sod 40 Mg Tab) 40 mg PO HS [facility] Stop: 04/08/23 20:59 Last Admin: 03/09/23 20:19 Dose: 40 mg Vitamin D (Cholecalciferol 1,000 Units 25 Mcg Tab) 2,000 units PO DAILY [facility] Stop: 04/09/23 08:59 Warfarin Sodium (Warfarin Sod 2.5 Mg Tab) 2.5 mg PO [id number] [facility] Stop: 04/08/23 17:59 Last Admin: 03/09/23 18:53 Dose: 2.5 mg Warfarin Sodium (Warfarin Sod 5 Mg Tab) 5 mg PO Mo@1600 [facility] Stop: 04/13/23 15:59
--- NOTE | 2023-03-10 08:07 | Cardiology Progress Note ---
Date of Service March 10, 2023 Assessment & Plan Admission and Anticipated Discharge Date Admission Date: March 09, 2023 Supervising Physician Co-Signing Physician Notes Patient seen and evaluated with AP Staff Concur with observations and plans 82 yo woman presenting with new-onset aflutter/fib On chronic coumadin sans major bleeding LVEF 60-65% MR - mild to moderate; no Plans: * Patient is S/P Cardioversion on 03/10/2023 * Continue Coumadin * Goal INR 2-3 * Current INR 2.4 - has been therapeutic since 08/2022 * K+ goal 4.5-5 (@ goal) * Kdur 10 meq po per day * Mag goal >2 * TSH - 1.2 * ECHOcardiogram - Pending * Pt appears euvolemic * Lopressor 50 mg po TID (STOP) * Start Toprol 75 mg po BID * Restart Lisinopril 2.5 mg po per day - to start at Home * Follow up with [facility] EP evaluation for possible repeat Afib/flutter Ablation. * Follow up with [facility] Cardiology * Please call back with any additional questions Pankaj Arreaga Subjective Events overnight: * None reported * Patient in Afib/flutter on telemetry Subjective: * No complaints Review of Systems Review of Systems: All systems reviewed & are unremarkable except as noted in HPI & below Physical Exam Physical Exam: Thin woman No elevation in JVP S1S2 2/6 Systolic murmur CTA B No c/c/e - warm and perfused Results & Data Vital Signs (Past 12 Hours) Vital Signs Temp Pulse Pulse Resp BP Pulse Ox O2 Del Method 03/10/23 07:15 124 H 18 133/94 97 Room Air 03/10/23 05:27 122 H 03/10/23 03:15 36.8 C 119 H 18 118/80 96 CPAP 03/10/23 02:45 117 H 20 92 03/09/23 23:07 36.9 C 106 H 18 122/85 95 CPAP 03/09/23 22:50 112 H 19 97 Laboratory Results Cardiac Enzymes 03/09/23 Range/Units 11:03 Troponin I High Sens 5.3 (0-14) pg/ml Coagulation 03/09/23 03/10/23 Range/Units 11:03 06:14 PT 26.7 H 25.1 H (9.0-12.0) Seconds APTT 38 H (21-31) Seconds CBC 03/09/23 03/10/23 Range/Units 11:03 06:14 WBC 7.20 6.00 (4.8-10.8) K/ul RBC 4.83 4.53 (4.20-5.40) M/uL Hgb 14.4 13.3 (12.0-16.0) g/dl Hct 42.7 40.9 (37.0-47.0) % Plt Count 258 199 (130-400) K/uL Neut # (Auto) 5.58 (1.40-6.50) K/uL Lymph # (Auto) 1.17 L (1.20-3.40) K/uL [place] # (Auto) 0.33 (0.11-0.59) K/uL Eos # (Auto) 0.07 (0.00-0.50) K/uL Baso # (Auto) 0.03 (0.00-0.20) K/uL Comprehensive Metabolic Panel 03/09/23 03/10/23 Range/Units 11:03 06:14 Sodium 136 138 (136-145) mmol/L Potassium 3.8 4.7 D (3.5-5.1) mmol/L Chloride 101 105 (98-107) mmol/L Carbon Dioxide 27 28 (21-32) mmol/L BUN 22 23 (6-23) mg/dl Creatinine 1.19 1.00 (0.6-1.2) mg/dl Glucose 196 H 96 (70-99(Fasting)) mg/dl Calcium 9.1 8.9 (8.6-10.3) mg/dl Intake and Output 03/09/23 03/10/23 03/10/23 22:59 06:59 14:59 Intake Total 400 / 750 350 / 750 Output Total Balance 399 / 749 350 / 749 Intake: IV 100 / 100 Magnesium Sulfate / D5w 1 gm In 100 / 100 100 ml @ 50 mls/hr IV ONE ONE Rx#:[id number] Oral 300 / 650 350 / 650 Output: # Bowel Movements Other: # Unmeasured Voids 1 0 Weight 71.866 kg 72.1 kg 72.1 kg Weight [facility] Patient Weight 03/11/23 06:59 Weight 72.1 kg Medications Administered Current Inpatient Medications Acetaminophen (Acetaminophen 325 Mg Tab) 650 mg PO Q4H PRN PRN Reason: Pain or Fever Stop: 04/08/23 17:23 Calcium Carbonate (Calcium Carbonate 1250mg Tab) 1,250 mg PO DAILY [facility] Stop: 04/09/23 08:59 Dextrose (Dextrose 50% 50 Ml Syringe) 25 - 50 ml IV UD PRN; Protocol PRN Reason: Hypoglycemia Protocol Stop: 04/08/23 17:23 Flecainide Acetate (Flecainide Acetate 100 Mg Tablet) 100 mg PO BID [facility] Stop: 04/08/23 20:59 Last Admin: 03/09/23 20:19 Dose: 100 mg Glucagon (Glucagon For Inj 1 Mg Vial) 1 mg SQ UD PRN; Protocol PRN Reason: Hypoglycemia Protocol Stop: 04/08/23 17:23 Glucose (Glucose 10 Tab/Tube) 4 - 8 tab PO UD PRN; Protocol PRN Reason: Hypoglycemia Treatment Stop: 04/08/23 17:23 Glucose (Glucose 40% Gel 15 Gm Tube) 15 - 30 gm PO UD PRN; Protocol PRN Reason: Hypoglycemia Protocol Stop: 04/08/23 17:23 Potassium Chloride/Sodium Chloride (Normal Saline W/20 Meq Kcl) 20 meq in 1,000 mls @ 60 mls/hr IV .[id number] ONE; Protocol Stop: 03/10/23 23:09 Last Admin: 03/10/23 06:47 Dose: 60 mls/hr Insulin Aspart (Insulin Aspart Per Unit Charge) 0 units SC ACHS [facility] Stop: 04/08/23 20:59 Last Admin: 03/09/23 20:20 Dose: Not Given Metoprolol Tartrate (Metoprolol Tartrate 50 Mg Tab) 50 mg PO TID [facility] Stop: 04/09/23 13:59 Miscellaneous (Carbohydrates For Hypoglycemia ) 15 - 30 gm PO UD PRN PRN Reason: Hypoglycemia Protocol Stop: 04/08/23 17:23 Pantoprazole Sodium (Pantoprazole 40 Mg Tab) 40 mg PO DAILYBB [facility] Stop: 04/09/23 06:29 Last Admin: 03/10/23 06:47 Dose: 40 mg Polyethylene Glycol (Polyethylene (Miralax) 17 Gm Pack) 17 gm PO DAILY PRN PRN Reason: Constipation Stop: 04/08/23 17:23 Potassium Chloride (Potassium Chloride 10 Meq Tabcr) 10 meq PO QAM [facility] Stop: 04/09/23 08:59 Pravastatin Sodium (Pravastatin Sod 40 Mg Tab) 40 mg PO HS [facility] Stop: 04/08/23 20:59 Last Admin: 03/09/23 20:19 Dose: 40 mg Vitamin D (Cholecalciferol 1,000 Units 25 Mcg Tab) 2,000 units PO DAILY [facility] Stop: 04/09/23 08:59 Warfarin Sodium (Warfarin Sod 2.5 Mg Tab) 2.5 mg PO [id number] [facility] Stop: 04/08/23 17:59 Last Admin: 03/09/23 18:53 Dose: 2.5 mg Warfarin Sodium (Warfarin Sod 5 Mg Tab) 5 mg PO Mo@1600 [facility] Stop: 04/13/23 15:59
[2023-03-10] MEDS: INSULIN ASPART PER UNIT CHARGE SC SCH ×2 (08:43→11:55)
--- NOTE | 2023-03-10 08:43 | Electrocardiogram Report ---
Test Reason : Blood Pressure : / mmHG Vent. 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
[2023-03-10] MEDS: FLECAINIDE ACETATE 100 MG TABLET PO SCH ×2 (08:44→20:18)
[2023-03-10] MEDS: CALCIUM CARBONATE 1250MG TAB PO SCH (08:44)
[2023-03-10] MEDS: CHOLECALCIFEROL 1,000 UNITS 25 MCG TAB PO SCH (08:44)
--- NOTE | 2023-03-10 08:44 | Electrocardiogram Report ---
Test Reason : Blood Pressure : / mmHG Vent. Rate : 061 BPM Atrial Rate : 061 BPM P-R Int : 242 ms QRS Dur : 098 ms QT Int : 324 ms P-R-T Axes : 082 -60 073 degrees QTc Int : 326 ms Atrial-paced rhythm with prolonged AV conduction Left anterior fascicular block Pulmonary disease pattern Nonspecific ST and T wave abnormality Abnormal ECG When compared with ECG of 09-MAR-2023 11:03, HR has decreased by 54 bpm Criteria for Anterolateral infarct no longer present Criteria for Inferior infarct no longer present Electronic atrial pacemaker now present Confirmed by Juan Luis Silva ([id number]) on 03/10/2023 8:43:46 AM Referred By: REFERRED SELF Confirmed By:Juan Luis Silva
[2023-03-10] MEDS: POTASSIUM CHLORIDE 10 MEQ TABCR PO SCH (08:45)
--- NOTE | 2023-03-10 08:54 | Post Operative Brief Note ---
Cardiology Brief Post Op Date of Surgery March 10, 2023 Pre & Post Diagnosis Pre Cardioversion Dx: Afib/flutter Post Cardioversion Dx: Afib/flutter - now in NSR Operation Date: 03/10/23 07:30 Procedure DC Cardioversion Metal Die Finisher Pankaj Arreaga MD Heater Helper Staff Anesthesia Estimated Blood Loss 0 Findings See Below Patient was successfully cardioverted to NSR with synchronized 200 J Shock x 1 Fluids None Specimens Specimen Description: None Disposition Accompanied Patient To Recovery: Yes (Recovered in animal laboratory technician area) Supervising Physician Co-Signing Physician Notes 82 yo woman presenting with new-onset aflutter/fib On chronic coumadin sans major bleeding LVEF 60-65% MR - mild to moderate; no Plans: * Patient is S/P Cardioversion on 03/10/2023 * Continue Coumadin * Goal INR 2-3 * Current INR 2.4 - has been therapeutic since 08/2022 * K+ goal 4.5-5 (@ goal) * Kdur 10 meq po per day * Mag goal >2 * TSH - 1.2 * ECHOcardiogram - Pending * Pt appears euvolemic * Lopressor 50 mg po TID (STOP) * Start Toprol 75 mg po BID * Restart Lisinopril 2.5 mg po per day - to start at Home * Follow up with [facility] EP evaluation for possible repeat Afib/flutter Ablation. * [facility] * Please call back with any additional questions Panakj Arreaga
--- NOTE | 2023-03-10 09:45 | Anesthesiology Progress Note ---
Date of Service March 10, 2023 Anesthesia Post Procedure Vital Signs Vital Signs: Temp Pulse Pulse Resp BP BP Pulse Ox 03/10/23 08:29 97.9 F 63 17 125/72 96 03/10/23 08:00 60 18 112/62 97 03/10/23 07:45 61 18 122/67 98 03/10/23 07:15 124 H 18 133/94 97 03/10/23 05:27 122 H 03/10/23 03:15 98.2 F 119 H 18 118/80 96 03/10/23 02:45 117 H 20 92 03/09/23 23:07 98.4 F 106 H 18 122/85 95 03/09/23 22:50 112 H 19 97 03/09/23 19:32 99.5 F 102 H 22 122/80 94 03/09/23 18:57 112 H 03/09/23 17:24 97.5 F L 110 H 22 126/93 96 03/09/23 17:03 03/09/23 16:48 119 H 21 115/87 94 03/09/23 14:44 116 H 18 119/83 95 03/09/23 12:52 113 H 23 104/73 03/09/23 12:40 111 H 03/09/23 10:50 97.9 F 117 H 20 107/76 96 O2 Del Method 03/10/23 08:29 Room Air 03/10/23 08:00 Room Air 03/10/23 07:45 Room Air 03/10/23 07:15 Room Air 03/10/23 05:27 03/10/23 03:15 CPAP 03/10/23 02:45 03/09/23 23:07 CPAP 03/09/23 22:50 03/09/23 19:32 Room Air 03/09/23 18:57 03/09/23 17:24 Room Air 03/09/23 17:03 Room Air 03/09/23 16:48 Room Air 03/09/23 14:44 Room Air 03/09/23 12:52 03/09/23 12:40 03/09/23 10:50 Room Air Transfer of Care Handoff Completed per policy Notes Mental Status: alert / awake / arousable and participated in evaluation Patient Amnestic to Procedure: Yes Nausea / Vomiting: adequately controlled Pain: adequately controlled Airway Patency, RR, SpO2: stable & adequate BP & HR: stable & adequate Hydration State: stable & adequate Anesthetic Complications: no major complications apparent and Pt Satisfied with anesthetic care
--- NOTE | 2023-03-10 13:54 | Hospitalist Progress Note ---
Date of Service March 10, 2023 Assessment & Plan (1) Atrial fibrillation with RVR: (2) Atrial flutter: (3) Palpitations: Plan: Patient is a 82-year-old female with PMH paroxysmal atrial fibrillation anticoagulated on warfarin, history of ablation 2013 with recurrent A-fib, on flecainide, tachybradycardia syndrome s/p pacemaker 2021, grade 2 diastolic dysfunction, HTN, HLD, GERD, TISHA, essential tremor presented to ER with complaint of palpitations started yesterday. In ER tachycardic up to 120. TSH: 1.2, HS troponin negative. CXR: No acute infiltrate Echo pending INR: 2.6. Continue warfarin Continue flecainide Cardiology consulted. Saw patient in ER. Feels rhythm consistent with atrial flutter/atrial fibrillation Increase metoprolol to tartrate from 50 mg twice daily to 50 mg 3 times daily per cardiology recommendations Magnesium: 1.8. Will give magnesium sulfate 1 g IV to try to maintain magnesium level> 2 K: 3.8. Was given KCl 40 mEq p.o. Monitor K level to try to maintain >4 03/10 Status post electrocardioversion Heart rate in 60s Toprol increased to 75 mg p.o. twice daily INR 2.4 Monitor closely (4) Tachy-syed syndrome: Plan: S/P pacemaker Pacemaker interrogation completed (5) Elevated glucose: Plan: Random glucose: 196 today A1c 5.3 on 09/30/2022 NovoLog sliding scale correction for now as will be n.p.o. at midnight A1c in a.m.: 5.4 (6) HTN (hypertension): Plan: Hold amlodipine, lisinopril, spironolactone per cardiology recommendations (7) HLD (hyperlipidemia): Plan: Continue pravastatin (8) CKD (chronic kidney disease) stage 3, GFR 30-59 ml/min: Plan: Cr: 1.2. Baseline 1.1 per outpatient chart review (9) GERD (gastroesophageal reflux disease): Plan: Continue PPI (10) Obstructive sleep apnea: Plan: Continue CPAP at bedtime DVT Prophylaxis On warfarin. INR therapeutic Full Code as per discussion with pt Follows with Dr Goodson for routine care Admission and Anticipated Discharge Date Admission Date: March 09, 2023 Subjective ff for a fib with RVR, etc Status post cardioversion today Resting in bed, sitting up, having lunch Good spirits States she feels much better overall no chest pain, dyspnea, palpitations, dizziness No other new symptoms Review of Systems Review of Systems: all noted and negative except for above Physical Exam Physical Exam: General- oriented x 3, not in distress, speaks in sentences with no effort or accessory muscle use Eyes- anicteric Neck- no JVD Lungs- clear breath sounds bilaterally, no rales/wheezes Heart- normal rate, regular rhythm; no murmurs Abdomen- normal bowel sounds, nondistended, soft, nontender Extremities- no pretibial edema, no calf tenderness Neuro- alert, oriented x 3; no gross focal neurologic deficits Skin- warm & dry Results & Data Results & Data Vital Signs (Past 12 Hours) Vital Signs Temp Pulse Pulse Resp BP Pulse Ox O2 Del Method 03/10/23 11:16 36.2 C L 60 18 96/65 L 96 Room Air 03/10/23 08:29 36.6 C 63 17 125/72 96 Room Air 03/10/23 08:00 60 18 112/62 97 Room Air 03/10/23 07:45 61 18 122/67 98 Room Air 03/10/23 07:15 124 H 18 133/94 97 Room Air 03/10/23 05:27 122 H 03/10/23 03:15 36.8 C 119 H 18 118/80 96 CPAP 03/10/23 02:45 117 H 20 92 all noted and reviewed including below
[2023-03-10] MEDS ORDERED: METOPROLOL TARTRATE 50 MG TAB PO SCH (14:00)
[2023-03-10] MEDS: WARFARIN SOD 2.5 MG TAB PO SCH (15:51)
[2023-03-10] MEDS: METOPROLOL SUCC 25MG EXT REL TAB PO SCH (20:17)
[2023-03-10] MEDS: PRAVASTATIN SOD 40 MG TAB PO SCH (20:17)
[2023-03-11] MEDS: PANTOprazole 40 MG TAB PO SCH (06:17)
[2023-03-11 07:32] LABS: INR 2.4 (0.9-1.1); Prothrombin Time 24.6 Seconds (9.0-12.0)
[2023-03-11] MEDS: METOPROLOL SUCC 25MG EXT REL TAB PO SCH (08:04)
[2023-03-11] MEDS: POTASSIUM CHLORIDE 10 MEQ TABCR PO SCH (08:04)
[2023-03-11] MEDS: FLECAINIDE ACETATE 100 MG TABLET PO SCH (08:04)
[2023-03-11] MEDS: CHOLECALCIFEROL 1,000 UNITS 25 MCG TAB PO SCH (08:05)
[2023-03-11] MEDS: CALCIUM CARBONATE 1250MG TAB PO SCH (08:05)
--- NOTE | 2023-03-11 14:27 | Discharge Summary ---
Discharge Summary Date of Service March 11, 2023 Notes For Next Care Provider Medication Changes From Visit see per below Admission HPI Per Admitting Provider Patient is a 82-year-old female with PMH paroxysmal atrial fibrillation anticoagulated on warfarin, history of ablation 2013 with recurrent A-fib, on flecainide, tachybradycardia syndrome s/p pacemaker 2021, grade 2 diastolic dysfunction, HTN, HLD, GERD, TISHA, essential tremor presented to ER with complaint of palpitations started yesterday. Patient states yesterday evening was sitting watching TV when she had onset of palpitations stating "heart felt like it was not beating correctly". Describes it as a fluttering sensation. Denies pounding or racing sensation of heart. States last night did feel dizzy with walking around. Denies any shortness of breath or chest pain. Palpitation symptoms were present upon awakening today. Patient states ate breakfast at [employer] and was standing to pay bill felt lightheaded like she was in a pass out. Denies syncopal event. Came to ER for further evaluation. In ER patient noted to be tachycardic and initial thought was sinus tachycardia on monitor. Cardiology was consulted and felt it was atrial flutter/fibrillation. Pacemaker interrogation has been ordered in ER but had not yet been reviewed. Patient states 1 month ago had some sinus congestion and cough productive of green phlegm. Patient states symptoms improved however still has intermittent episodes of coughing typically once a day. Patient reports right leg chronically larger than left leg and tends to swell more, resolves with elevating legs. Denies fever/chills, diaphoresis, N/V/D/C, MARTINEZ, vision changes, neck pain, orthopnea, hemoptysis, sore throat, abdominal pain, paresthesias, weakness, rashes, urinary symptoms. Admission Exam Per Admitting Provider General: no distress, WDWN Head: normocephalic, atraumatic Eyes: PERRL, conjunctiva non-injected, anicteric ENT: normal inspection external ears, nose, mucous membranes moist Neck: supple, trachea midline Lungs: clear, no respiratory distress, no wheezing/rhonchi/rales CV: tachycardia, appears regular, rate 116, +murmur, no pretibial edema Abd: normal BS, soft, non-tender Ext: no cyanosis, no calf tenderness Neuro: A&O x 3, no focal deficits noted, normal affect Skin: warm, dry Principal Dx & Hospital Course #1 = Principal Diagnosis (1) Atrial fibrillation with RVR: (2) Atrial flutter: (3) Palpitations: Patient is a 82-year-old female with PMH paroxysmal atrial fibrillation anticoagulated on warfarin, history of ablation 2013 with recurrent A-fib, on flecainide, tachybradycardia syndrome s/p pacemaker 2021, grade 2 diastolic dysfunction, HTN, HLD, GERD, TISHA, essential tremor presented to ER with complaint of palpitations started yesterday. In ER tachycardic up to 120. TSH: 1.2, HS troponin negative. CXR: No acute infiltrate Echo pending INR: 2.6. Continue warfarin Continue flecainide Cardiology consulted. Saw patient in ER. Feels rhythm consistent with atrial flutter/atrial fibrillation Increase metoprolol to tartrate from 50 mg twice daily to 50 mg 3 times daily per cardiology recommendations Magnesium: 1.8. Will give magnesium sulfate 1 g IV to try to maintain magnesium level> 2 K: 3.8. Was given KCl 40 mEq p.o. Monitor K level to try to maintain >4 12/15 Status post electrocardioversion Heart rate in 60s Toprol increased to 75 mg p.o. twice daily Lisinopril 2.5 mg p.o. daily INR 2.4 Cleared for discharge per cardiology service Follow-up in 1 week (4) Tachy-syed syndrome: S/P pacemaker Pacemaker interrogation completed (5) Elevated glucose: Random glucose: 196 today A1c 5.3 on 09/30/2022 NovoLog sliding scale correction for now as will be n.p.o. at midnight A1c in a.m.: 5.4 (6) HTN (hypertension): Lisinopril 2.5 mg p.o. daily (7) HLD (hyperlipidemia): Continue pravastatin (8) CKD (chronic kidney disease) stage 3, GFR 30-59 ml/min: Cr: 1.2. Baseline 1.1 per outpatient chart review (9) GERD (gastroesophageal reflux disease): Continue PPI (10) Obstructive sleep apnea: Continue CPAP at bedtime DVT Prophylaxis On warfarin. INR therapeutic Full Code as per discussion with pt Follows with Dr Goodson for routine care Discharge Exam General- oriented x 3, not in distress, speaks in sentences with no effort or accessory muscle use Eyes- anicteric Neck- no JVD Lungs- clear breath sounds bilaterally, no rales/wheezes Heart- normal rate, regular rhythm; no murmurs Abdomen- normal bowel sounds, nondistended, soft, nontender Extremities- no pretibial edema, no calf tenderness Neuro- alert, oriented x 3; no gross focal neurologic deficits Skin- warm & dry Updated Medication List Medication Instructions Recorded Confirmed Type amlodipine 5 mg tablet 5 mg PO QAM 05/29/18 03/09/23 History flecainide 100 mg tablet 100 mg PO BID 05/29/18 03/09/23 History pravastatin 40 mg tablet 40 mg PO HS 05/29/18 03/09/23 History potassium chloride 10 mEq 10 meq PO QAM 06/05/18 03/09/23 History tablet,extended release(part/cryst) (Klor-Con M) lansoprazole 30 mg capsule,delayed 30 mg PO DAILYBB 04/10/21 03/09/23 History release (Prevacid) spironolactone 25 mg tablet 12.5 mg PO MOWEFR 09/05/21 03/09/23 History warfarin 2.5 mg tablet 0 mg PO DAILY 09/05/21 03/09/23 History calcium carbonate 600 mg calcium 600 mg PO DAILY 09/06/21 03/09/23 History (1,500 mg) tablet (Calcium) cholecalciferol (vitamin D3) 50 50 mcg PO DAILY 09/06/21 03/09/23 History mcg (2,000 unit) tablet (Vitamin D3) lisinopril 2.5 mg tablet 2.5 mg PO DAILY #30 tabs 03/11/23 Rx metoprolol succinate 25 mg 75 mg (3 x 25 mg) PO BID 30 days 03/11/23 Rx tablet,extended release 24 hr #180 tabs Hospital Stay Data Consultations 03/09/23 14:34 Consult Cardiology Stat ED Decision to Admit Stat 03/09/23 15:17 Consult Anesthesiology Routine Procedures Performed Operation Date: 03/10/23 07:30 Actual Procedures p Cardioversion - Pankaj Arreaga MD Diagnostic Imagining Performed Laboratory Results WBC 6.00 K/ul (4.8-10.8) 03/10/23 06:14 RBC 4.53 M/uL (4.20-5.40) 03/10/23 06:14 Hgb 13.3 g/dl (12.0-16.0) 03/10/23 06:14 Hct 40.9 % (37.0-47.0) 03/10/23 06:14 MCV 90.3 fL (80.0-100.0) 03/10/23 06:14 MCH 29.4 pg (25.0-34.0) 03/10/23 06:14 MCHC 32.5 g/dL (32.0-36.0) 03/10/23 06:14 RDW Std Deviation 45.1 fL (36.4-46.3) 03/10/23 06:14 RDW Coeff of [place] 13.6 % (11.5-14.5) 03/10/23 06:14 Plt Count 199 K/uL (130-400) 03/10/23 06:14 MPV 10.5 fL (9.4-12.4) 03/10/23 06:14 Immature Gran % (Auto) 0.3 % 03/09/23 11:03 Neut % (Auto) 77.4 % 03/09/23 11:03 Lymph % (Auto) 16.3 % 03/09/23 11:03 [place] % (Auto) 4.6 % 03/09/23 11:03 Eos % (Auto) 1.0 % 03/09/23 11:03 Baso % (Auto) 0.4 % 03/09/23 11:03 Neut # (Auto) 5.58 K/uL (1.40-6.50) 03/09/23 11:03 Lymph # (Auto) 1.17 K/uL (1.20-3.40) L 03/09/23 11:03 [place] # (Auto) 0.33 K/uL (0.11-0.59) 03/09/23 11:03 Eos # (Auto) 0.07 K/uL (0.00-0.50) 03/09/23 11:03 Baso # (Auto) 0.03 K/uL (0.00-0.20) 03/09/23 11:03 Immature Gran # (Auto) 0.02 K/uL (0.01-0.20) 03/09/23 11:03 PT 24.6 Seconds (9.0-12.0) H 03/11/23 06:21 INR 2.4 (0.9-1.1) H 03/11/23 06:21 APTT 38 Seconds (21-31) H 03/09/23 11:03 PTT Ratio 1.3 03/09/23 11:03 Sodium 138 mmol/L (136-145) 03/10/23 06:14 Potassium 4.7 mmol/L (3.5-5.1) D 03/10/23 06:14 Chloride 105 mmol/L (98-107) 03/10/23 06:14 Carbon Dioxide 28 mmol/L (21-32) 03/10/23 06:14 Anion Gap 5 (3-11) 03/10/23 06:14 BUN 23 mg/dl (6-23) 03/10/23 06:14 Creatinine 1.00 mg/dl (0.6-1.2) 03/10/23 06:14 Est Cr Clr Drug Dosing 44.7 ml/min 03/10/23 06:14 Est GFR ( Amer) 61.6 ml/min 03/10/23 06:14 Est GFR (Non-Af Amer) 53.2 ml/min 03/10/23 06:14 BUN/Creatinine Ratio 23.0 (10-20) H 03/10/23 06:14 Glucose 96 mg/dl (70-99(Fasting)) 03/10/23 06:14 POC Glucose 98 mg/dl (70-99) 03/10/23 11:18 Estimat Average Glucose 108 mg/dl 03/10/23 06:14 Hemoglobin A1c 5.4 % (4.5-5.6) 03/10/23 06:14 Calcium 8.9 mg/dl (8.6-10.3) 03/10/23 06:14 Magnesium 2.1 mg/dl (1.7-2.4) 03/10/23 06:14 Troponin I High Sens 5.3 pg/ml (0-14) 03/09/23 11:03 Lipase 35 U/L (11-82) 03/09/23 11:03 TSH 1.246 uIu/ml (0.300-4.500) 03/09/23 11:03 Impressions Chest X-Ray 03/09/23 11:13 SINGLE VIEW CHEST CLINICAL HISTORY: Atypical chest pain FINDINGS: An AP, portable, upright chest radiograph is compared to study dated 08/24/2022. A 2-lead cardiac pacemaker is unchanged in position. The heart is enlarged. The pulmonary vasculature is noncongested. Chronic interstitial thickening is somewhat previous. There is bibasilar scarring/atelectasis. The lungs and pleural spaces are otherwise clear. No pneumothorax is seen. The skeletal structures are osteopenic. The bony thorax is grossly intact. Cholecystectomy clips are seen in the right upper quadrant. IMPRESSION: 1. Cardiomegaly and cardiac pacemaker without radiographic evidence of congestive failure. 2. No airspace consolidation or large pleural effusion is identified. ACT 112: Negative or not required by law. Electronically signed by: Pepe Whittington M.D. 03/09/2023 11:[address] 03/09/23 11:13 CT OF THE HEAD WITHOUT CONTRAST CLINICAL HISTORY: Near syncope. COMPARISON STUDY: Head CT 09/05/2021. CT DOSE: 703.85 mGy.cm TECHNIQUE: Helical axial images of the head were obtained without IV contrast. Automated exposure control was utilized for the study. A dose lowering technique was utilized adhering to the principles of ALARA. FINDINGS: This study is mildly compromised by motion artifact. No acute intracranial hemorrhage, midline shift or mass effect is present. Bilateral basal ganglia calcifications are present. There are linear calcifications within the bilateral cerebellar hemispheres. In addition, scattered linear sulcal calcified densities are unchanged since prior head CT and favor calcified vessels. The appearance of the brain is unchanged. No findings to suggest acute dural sinus thrombosis or acute territorial infarct. White matter hypodensity suggests small vessel disease. IMPRESSION: 1. No acute intracranial findings. 2. No change in appearance of the brain. Calcified cortical vessels, as described above. ACT 112: Negative or not required by law. Electronically signed by: Vladislav Lopez M.D. 03/09/2023 1:54 PM 03/09/23 11:13 CT head/brain wo con Stat Pending Results Patient Have Any Pending Studies at Discharge: No Discharge Instructions Given to Patient (Per Discharging Provider) PLEASE REFER TO YOUR NEW MEDICATION LIST AND FOLLOW INSTRUCTIONS CAREFULLY. YOUR NEW MEDICATIONS INCLUDE: METOPROLOL SUCCINATE- for heart rate control Stop taking Metoprolol tartrate. Decrease Lisinopril to 2.5mg daily. PLEASE CALL YOUR PRIMARY CARE PHYSICIAN OR RETURN TO THE ER IF WITH WORSENING OF SYMPTOMS, INCLUDING chest pain, palpitations, dizziness, nausea/vomiting, etc FOLLOW UP WITH PRIMARY CARE PHYSICIAN AND BIOMASS TECHNICIAN OUTLINED ABOVE. Total Time Total Time Spent Total Time Spent (In Minutes): >30 minutes
--- NOTE | 2023-03-12 07:37 | Electrocardiogram Report ---
Test Reason : Blood Pressure : / mmHG Vent. Rate : 113 BPM Atrial Rate : 359 BPM P-R Int : 000 ms QRS Dur : 108 ms QT Int : 356 ms P-R-T Axes : 000 083 -52 degrees QTc Int : 488 ms Ventricular-paced rhythm Probably tracking at upper rate limit Abnormal ECG When compared with ECG of 09-MAR-2023 11:03, Electronic ventricular pacemaker has replaced Sinus rhythm Confirmed by Shayne Lozada ([id number]) on 03/12/2023 7:36:58 AM Referred By: REFERRED SELF Confirmed By:Shayne Lozada
[2023-03-14] MEDS ORDERED: WARFARIN SOD 2.5 MG TAB PO SCH (16:00)
[2023-03-14] MEDS ORDERED: WARFARIN SOD 5 MG TAB PO SCH (16:00)
== END 2023-03-11 14:34 | disposition home or self-care (01) | DRG 310 ==
LOC: ED 10:44 → 2E 15:57 → SUATTDRO 15:57 → 2E 17:03

== ENCOUNTER 2023-05-09 04:36 | Observation (INO) ==
--- OUTSIDE RECORDS SUMMARY | 2023-05-09 04:40 | External Medical Summary | Summary of Care ---
Author Name Unknown Organization [facility] Address [address] [place] [address] Phone [phone] Care Team Providers Care Tariff Expert Name Role Phone Gregory Goodson MD Primary Care Provide r Reason for Visit * Reason Comments Follow Up Encounter Details Date Type Department Care Team ([facility] st Contact Info) Description 04/13/2023 10:00 AM EST Office Visit Cardiology, [facility] [address] [place] [address] Bernardino Betancur, [address] [facility] [place] [address] Paroxysmal atrial fibrillation (HCC)* Allergies Active Allergy Reactions Criticality Noted Date Comments Penicillins 04/04/2000 rash documented as of this encounter (statuses as of 04/13/2023) Medications Medication Sig Dispensed Refills Start Date End Date Status VITAMIN D3 2000 UNITS PO CAPSIndications:Vi tamin D insufficiency 1 CAPSULE DAILY 90 Cap 3 01/03/2012 Active Calcium 600 MG Oral Tablet Take 1 Tablet by mouth in the morning. 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 TAKE 2 TABLETS BY MOUTH ON MON, WED, FRI, AND TAKE 1 TABLET ALL OTHER DAYS OR DIRECTED BY ANTICOAGULATION CLINIC 100 Tablet 5 10/04/2022 Active amLODIPine Besylate 5 MG Oral Tablet (Norvasc)Indicatio ns:HTN, goal below 140/90 Take 1 tablet by mouth once daily 90 Tablet 3 01/06/2023 Active Lansoprazole 30 MG Oral Capsule Delayed Release (Prevacid)Indicati ons:Gastroesophage al reflux disease with esophagitis without hemorrhage TAKE 1 CAPSULE BY MOUTH ONCE DAILY 30 MINUTES BEFORE BREAKFAST 90 Capsule 1 01/20/2023 Active Klor-Con M10 10 MEQ Oral Tablet Extended ReleaseIndications :HTN, goal below 150/90 Take 1 Tablet by mouth in the morning. 90 Tablet 3 03/14/2023 Active Lisinopril 2.5 MG Oral Tablet (Prinivil)Indicati ons:HTN, goal below 150/90 Take 1 Tablet by mouth in the morning and 1 Tablet before bedtime. 0 03/18/2023 Active Metoprolol Succinate ER 25 MG Oral Tablet Extended Release 24 Hour (toPROL XL) Take 3 Tablets by mouth in the morning and 3 Tablets before bedtime. 0 03/18/2023 Active Flecainide Acetate 100 MG Oral Tablet (Tambocor)Indicati ons:Paroxysmal atrial fibrillation (HCC) Take 1 tablet by mouth twice daily 180 Tablet 3 04/06/2023 Active Doxycycline Hyclate 100 MG Oral CapsuleIndications :Bronchitis, complicated Take 1 Capsule by mouth in the morning and 1 Capsule before bedtime. Do all this for 10 days. Until gone.. 20 Capsule 0 04/06/2023 Active Benzonatate 100 MG Oral CapsuleIndications :Bronchitis, complicated Take 1 Capsule by mouth 3 times a day as needed for Cough. 30 Capsule 1 04/06/2023 Active documented as of this encounter (statuses as of 04/13/2023) Active Problems Problem Noted Date Diagnosed Date Atrial flutter 03/18/2023 Age-related osteoporosis wit hout current pathological fracture 01/21/2022 Cardiac pacemaker in situ 09/25/2021 Tachy-syed syndrome 09/25/2021 Gastroesophageal reflux disease 06/12/2021 Nonrheumatic aortic valve insufficiency 09/27/19 Nonrheumatic mitral valve regurgitation 09/27/19 Peripheral edema 09/26/2020 History of GI bleed 06/12/2019 Essential tremor 02/17/2018 Paroxysmal atrial fibrillation 10/12/2017 Vitamin D deficiency 01/11/2013 Sleep apnea, obstructive 06/22/2011 Overview: 12/31/11 -- CPAP 8 09/13/11 -- CPAP 5-10 cwp 09/06/11 PSG -- CPAP 6 06/04/11 PSG -- AHI 13.1 Dena ADVANCE DIRECTIVE INFORMATION 09/02/2009 Overview: No, Advance Directive brochure offered , patient declined. Dyslipidemia, goal LDL below 100 02/03/2009 HTN, goal below 150/90 01/31/2009 Overview: Modified per HTN Taxonomy. 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 documented as of this encounter (statuses as of 04/13/2023) Resolved Problems Problem Noted Date Diagnosed Date Resolved Date Palpitations 09/26/2020 09/30/2022 Age-related osteoporosis wit h current pathological fracture with routine healing 04/12/2019 08/31/2022 Wedge compression fracture o f T11 vertebra with routine healing 06/15/2018 12/05/2020 Gastrointestinal hemorrhage associated with gastric ulcer 06/15/2018 06/12/2019 Gastritis 02/17/2018 04/14/2020 Kidney disease, chronic, sta ge III (GFR 30-59 ml/min) 08/12/2014 03/17/2015 Overview: Per CKD protocol #1 Malignant neoplasm of skin of parts of face 12/22/2009 06/23/2017 Overview: ICD-10 update of inactive term Dysuria 02/10/2007 01/16/2014 Atrial fibrillation 03/24/2005 02/18/20 18 Overview: Flecainide 50mg BID then 100mg BID(uptitrated spring 2013) plus [id number]-pocket Well controlled until 01/2014 Admission 01/30- for rapid AF-> changed to sotalol -> admission 02/05 -> changed to amiodarone AMiodarone 400mg QD 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 Menopause 01/29/2015 documented as of this encounter (statuses as of 04/13/2023) Immunizations Name Administration Dates Next Due COVID-19 mRNA, LNP-s, No Pre serve, 2-Dose Series (Moderna) 03/17/2021,07/23/2020,06/18/2020 Pneumococcal Conjugate Vacc, 13 Valent (Prevnar) 01/29/2015 Pneumococcal Polysaccharide PPV23 (Pneumovax) 06/05/2007 Seasonal Influenza, PF, 6 M & above, IM , (FluLaval or Fluzone) 12/25/2019,01/30/2018 Seasonal Influenza, Quadriva lent Hd (Fluzone Hd) 12/24/2022,12/23/2021,12/05/2020 Seasonal Influenza, Quadriva lent, No Preserve, IM 12/11/2016,02/10/2016 Seasonal Influenza, Split, I IV3, With Preserve, Inj 12/28/2014,12/06/2013,12/04/2012,01/07,12/09/2011,12/18/2010,12/09/2009 ,01/02/2009,12/27/2007 Seasonal Influenza, Trivalen t, High Dose, No Preserve, IM 01/27/2019 TD - Tetanus/Diptheria (ADULT) 07/13/2010(Deferr ed: Patient Refused) Varicella Zoster Vaccine (Adult) 09/14/2014 Zoster Vaccine Recombinant (Shingrix) 10/31/2019 ,05/31/2019 documented as of this encounter Social History Tobacco Use Types Packs/Day Years Used Date Smoking Tobacco: Never Smokeless Tobacco: Never Alcohol Use Standard Drinks/Week Comments No 0 (1 standard drink = 0.6 oz pur e alcohol) PHQ-2 Answer Date Recorded PHQ Adult Total Score 1 09/30/2022 Hunger Vital Sign Answer Date Recorded Within the past 12 months, y ou worried that your food would run out before you got the money to buy more. Never true 10/01/19 23 Within the past 12 months, t he food you bought just didn't last and you didn't have money to get more. Never true 09/30/2022 Sex and Gender Information Value Date Recorded Sex Assigned at Female 11/22/2018 10:39 AM EDT Gender Identity Female 11/22/2018 10:39 AM EDT Sexual Orientation Straight 09/30/2022 11 :04 AM EDT Job Start Date Occupation Industry Not on file Not on file Not on file documented as of this encounter Last Filed Vital Signs Vital Sign Reading Time Taken Comments Blood Pressure 118/60 04/13/2023 9:54 AM EST Pulse 65 04/13/2023 9:54 AM EST Temperature - - Respiratory Rate - - Oxygen Saturation - - Inhaled Oxygen Concentration - - Weight - - Height - - Body Mass Index - - documented in this encounter Progress Notes * Bernardino Betancur, DO - 04/13/2023 10:03 AM EST Cardiology Outpatient Follow-up Marissa Uribe is a 82 year old female who is seen for follow-up of atrial fibrillation. HPI: This is an 82-year-old female with a long history of paroxysmally atrial fibrillation. In 2013 she had a PVI at [facility] and then had a recurrence of the atrial fibrillation and was started on flecainide in 2014. She is status post permanent pacemaker for tachy-syed syndrome. In February she had a recurrence of atrial fibrillation and was admitted to [place]. She underwent an electivecardioversion and I saw her in follow-up today. Overall things are going well. She has not had a recurrence of tachyarrhythmia or irregular heartbeat. No shortness of breath or chest pain. 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 Z79.01 HTN, goal below 150/90 I10 Dyslipidemia, goal LDL below 100 E78.5 ADVANCE DIRECTIVE INFORMATION Sleep apnea, obstructive G47.33 Vitamin D deficiency E55.9 Paroxysmal atrial fibrillation (HCC) I48.0 Essential tremor G25.0 History of GI bleed Z87.19 Nonrheumatic aortic valve insufficiency I35.1 Nonrheumatic mitral valve regurgitation I34.0 Peripheral edema R60.9 Gastroesophageal reflux disease K21.9 Cardiac pacemaker in situ Z95.0 Tachy-syed syndrome (HCC) I49.5 Age-related osteoporosis without current pathological fracture M81.0 Atrial flutter (HCC) I48.92 Past Surgical History: Procedure Laterality Date COLONOSCOPY, DIAGNOSTIC (RECTUM) 08/10/2007 normal, repeat 5-7 yrs EGD, FLEXIBLE, DIAGNOSTIC 06/07/2018 Non-bleeding erosive gastropathy / INPT [facility] EGD, FLEXIBLE, DIAGNOSTIC 06/08[facility], ATRIAL FIB, PULMONARY VEIN ISOL Bilateral 03/04/2014 ELECTROPHYSIOLOGY EVAL, ATRIAL FIB, PULMONARY VEIN ISOL performed by Kenneth Avendaño MD at [facility] FNA W/IMAGE 02/05/2003 Right breast [facility] KNEE ARTHROSCOPY/MENISCECTOMY Left 02/03/2017 [facility] LAPAROSCOPY; CHOLECYSTECTOMY 04/25/2002 PACEMAKER INSERTION PER 09/02/2021 Dr. Prater REMOVE CATARACT, INSERT LENS PROSTH Right 04/15/2022 right EXTRACAPSULAR CATARACT REMOVAL WITH INTRAOCULAR LENS performed by Armand Mallory MD at [facility] REMOVE CATARACT, INSERT LENS PROSTH Left 04/22/2022 left EXTRACAPSULAR CATARACT REMOVAL WITH INTRAOCULAR LENS performed by Armand Mallory MD at [facility] REPAIR HIP FRACTURE(S), W/FIXATION Right 09/06/2021 Short cephalomedullary nail--Dr. Madrid Family History Problem Relation Age of Onset Diabetes Mother Hypertension Mother Lung Disorder Father emphysema Hypertension Sister No Past Hx Son No Past Hx Son No Past Hx Son Social History Tobacco Use Smoking status: Never Smokeless tobacco: Never Vaping Use Vaping Use: Never used Substance Use Topics Alcohol use: No Drug use: No Review of patient's allergies indicates: Allergen Reactions Penicillins rash Current Outpatient Medications Medication Sig Dispense Refill VITAMIN D3 2000 UNITS PO CAPS 1 CAPSULE DAILY 90 Cap 3 Calcium 600 MG Oral Tablet Take 1 Tablet by mouth in the morning. Spironolactone 25 MG Oral Tablet (Aldactone) Take 1/2 (one-half) tablet by mouth once daily (Patient taking differently: Mon,Wed,Fri only) 45 Tablet 5 Pravastatin Sodium 40 MG Oral Tablet (Pravachol) TAKE 1 TABLET BY MOUTH ONCE DAILY AT BEDTIME 90 Tablet 3 Warfarin Sodium 2.5 MG Oral Tablet (Coumadin) TAKE 2 TABLETS BY MOUTH ON MON, WED, FRI, AND TAKE 1 TABLET ALL OTHER DAYS OR DIRECTED BY ANTICOAGULATION CLINIC 100 Tablet 5 amLODIPine Besylate 5 MG Oral Tablet (Norvasc) Take 1 tablet by mouth once daily 90 Tablet 3 Lansoprazole 30 MG Oral Capsule Delayed Release (Prevacid) TAKE 1 CAPSULE BY MOUTH ONCE DAILY 30 MINUTES BEFORE BREAKFAST 90 Capsule 1 Klor-Con M10 10 MEQ Oral Tablet Extended Release Take 1 Tablet by mouth in the morning. 90 Tablet 3 Lisinopril 2.5 MG Oral Tablet (Prinivil) Take 1 Tablet by mouth in the morning and 1 Tablet before bedtime. Metoprolol Succinate ER 25 MG Oral Tablet Extended Release 24 Hour (toPROL XL) Take 3 Tablets by mouth in the morning and 3 Tablets before bedtime. Flecainide Acetate 100 MG Oral Tablet (Tambocor) Take 1 tablet by mouth twice daily 180 Tablet 3 Doxycycline Hyclate 100 MG Oral Capsule Take 1 Capsule by mouth in the morning and 1 Capsule beforebedtime. Do all this for 10 days. Until gone.. 20 Capsule 0 Benzonatate 100 MG Oral Capsule Take 1 Capsule by mouth 3 times a day as needed for Cough. 30 Capsule 1 No current facility-administered medications for this visit. ROS: Review of Systems: See HPI for pertinent positives. All other review of systems is negative. PHYSICAL EXAMINATION BP 118/60 | Pulse 65 There is no height or weight on file to calculate BMI. General: no acute distress and stated age Head: normocephalic, no masses, lesions, tenderness or abnormalities Eyes: conjunctiva are pink and non-injected, sclera clear Neck: supple, no adenopathy, no bruits, normal jugular venous pulse, no hepatojugular reflux Chest: normal shape and normal respiratory effort Lungs: clear to auscultation and percussion Cardiac Exam: - regular rate & rhythm, no murmurs gallops or rubs - normal S1, normal S2 Pulses: 2(+) throughout Abdomen: abdomen soft, non-tender, no abnormal masses and no hepatosplenomegaly Musculoskeletal: no gait disturbance, no joint inflammation, no deforming arthritis Extremities: no edema and no cyanosis Neuro: grossly normal exam Laboratory Data Review: No recent data Impression: 1. Paroxysmally atrial fibrillation status post PVI 2014 [facility] with recurrence in 2014 when the patient was started on flecainide. 2. Status post permanent pacemaker for tachy-syed syndrome 3. Chronic diastolic heart failure 4. Mixed valvular pathology with aortic insufficiency and mitral regurgitation. Plan: The patient is currently clinically stable and doing well. She will continue her current medications and I plan follow-up again in 3 months or earlier if needed. This chart was completed in part utilizing [employer] Speech Voice Recognition Software. Grammatical errors, random word insertions, prounoun errors, and incomplete sentences are an occasional consequence of this system due to software limitations, ambient noise, and hardware issues. Any formal questions or concerns about the content, text, or information contained within the body of this dictation should be directly addressed to the provider for clarification. I spent a total of 30-39 minutes (exact time 35 mins) on the date of service in preparation, delivery, and documentation of the care provided to Marissa Uribe excluding any time spent in the performance of separately billed services. Bernardino Betancur DO Cardiology[address] [address] 04/13/2023 documented in this encounter Nursing Notes * Chris Wells, BUSHRA - 04/13/2023 9:45 AM EST Examination Room: room 16 Name: Marissa Uribe Date of : (1940). Reason for Visit: for follow up Interim Hospitalization(s): denies Problems/Concerns: diagnosed with RSV 2 weeks ago and bronchitis last week. Has a cough. On antibiotics Chest Pain/SOB: denies [facility] Discussed: Yes [facility] is a way you can talk to your provider online through e-mail. Would you like to sign up? I can activate it for you? ALREADY ACTIVE Patient was instructed to not get up on the exam table until directed and assisted by their provider; patient is to remain seated in the chair/ wheelchair/ exam table for fall prevention and safety reasons. Patient is aware to have assistance to step down off exam table with personnel. Patient voiced full comprehension of instructions. documented in this encounter Plan of Treatment Upcoming Encounters Date Type Department Care Team (Late st Contact Info) Description 04/13/2023 5:30 PM EST Anticoagulation Pharmacy, [address] [place] [address] [place] [address] 05/18/2023 9:00 AM EST Cardiac Studies Cardiology, [facility] [address] [facility] [place] [address] [address] [address] [facility] [place] [address] 05/31/2023 11:00 AM EST Office Visit Cardiology, [facility] [address] [facility] [place] [address] Aye Musa CRNP [address] [facility] [place] [phone] 09/19/2023 12:20 PM EDT Office Visit Family Medicine [address] [place] [phone] Ebony Noriega PA-C [address] [place] [address] [place] [address] 11/03/2023 10:45 AM EDT Office Visit Dermatology [facility] [address] [place] [address] Buffy De Souza MD [address] [place] [address] 01/12/2024 10:30 AM EDT Office Visit Sleep Disorders Ctr [facility] [address] [place] [phone] Tari Gardner CRNP [address] [place] [address] 03/19/2024 1:00 PM EST Office Visit Family Medicine [address] [phone] Gregory Goodson MD [address] [place] [address] [place] [address] Health Maintenance Due Date Last Done Comments DTaP,Tdap,and Td Vaccines (1 - Tdap) 1959 COVID-19 Vaccine ( - 2022-24 season) 2022 03/17/2021, 07/23/2020, 06/18/2020 *BISPHONATE OR OTHER ACCEPTABLE MEDICATION NEEDED FOR OSTEOPOROSIS (REFER TO SMARTSET #1146) 03/21/2023 Depression Screening 10/01/2023 09/30/2022 DXA Scan 01/21/2024 01/20/2022, 12/27, 12/25/2019, Additional history exists GFR 03/18/2024 03/18/2023, 08/2022, 04/02/2022, Additional history exists Albumin/Creatinine Ratio 04/02/2025 04/02/2022, 01/27 Pneumococcal Vaccine: 65+ Years Completed 01/29/2015, 06/05/2007 Zoster Vaccines Completed 10/31/2019, 07/2019, 09/14/2014 VITAMIN D LEVEL ONCE IN A LIFETIME-USE SMARTSET# 19891 Completed 01/20/2022, 04/04/2020, 03/23/2019, Additional history exists Influenza Vaccine (FLU shot) Completed , 12/23/2021, 12/05/2020, Additional history exists GARDASIL-HPV IMMUNIZATION SERIES Aged Out No longer eligible based on patient's age to complete this topic Hepatitis B Aged Out No longer eligi ble based on patient's age to complete this topic MENINGOCOCCAL (MENACTRA/MENVEO) Aged Out No longer eligible based on patient's age to complete this topic documented as of this encounter Medical Devices Implanted Type Area Analog Ic Design Architect Device Identifier Shelf Expiration Date Model / Serial / Lot Lens Intraoc 22.5 - [id number] - [id number] Implanted:Qty: 1 on 04/15/2022 by Armand Mallory MD at [facility] Right: Eye [employer] 12/25/2026 [id number] / [id number] / [id number] Lens Intraoc 22.5 - [id number] - [id number] Implanted:Qty: 1 on 04/22/2022 by Armand Mallory MD at [facility] Left: Eye [employer] 02/24/2027 [id number] / [id number] / [id number] documented as of this encounter Visit Diagnoses Diagnosis Paroxysmal atrial fibrillation (HCC)- Primary Atrial fibrillation documented in this encounter Additional Health Concerns Infection Onset Date Last Indicated Resolved Time RSV 03/30/2023 03/30/2023 documented as of this encounter Advance Directives Latest Code Status on File Code Status Date Activated Date Inactivated Comments No Code 04/22/2022 8:35 AM 04/22/2022 2:59 PM This order reflects the patients wishes and were consensually agreed upon. Question Answer Comments Discussion of Advance Directives occurred with: Patient Does the patient have a Living Will? No Does the patient have Health Care Power of Visual And Stock Associate? No Code Status History Code Status Date Activated Date Inactivated Comments No Code 04/15/2022 7:59 AM 04/15/2022 2:36 PM This order reflects the patients wishes and were consensually agreed upon. Question Answer Comments Discussion of Advance Directives occurred with: Patient Does the patient have a Living Will? No Does the patient have Health Care Power of Visual And Stock Associate? No Full Code 03/04/2014 1:13 PM 03/05/2014 2:17 PM This order reflects the patients wishes and were consensually agreed upon. Healthcare Agents on File Name Relationship Healthcare Agent Relationshi p Communication Edu Rony Spouse Health Care Repr esentative (appointed verbally by patient or by statute hierarchy) Care Teams Tariff Expert Relationship Specialty Start Date End Date Gregory Goodson MD [address] [place] [address] [place] [address] PCP - General Family Medicine 10/23/13 documented as of this encounter"
--- OUTSIDE RECORDS SUMMARY | 2023-05-09 04:40 | External Medical Summary | Summary of Care ---
Author Name Unknown Organization [facility] Address [address] [place] [address] Phone [phone] Care Team Providers Care Field Test Engineer Name Role Phone Gregory Goodson MD Primary Care Provide r Reason for Visit * Reason Comments eRx-Medication Refill Encounter Details Date Type Department Care Team (Late st Contact Info) Description 04/20/2023 Refill Cardiology, [facility] [address] [facility] [place] [address] Demarco Suh, PAUdayC [address] [facility] [place] [address] HTN, goal below 140/90; Peripheral edema; Hypokalemia Allergies Active Allergy Reactions Criticality Noted Date Comments Penicillins 04/04/2000 rash documented as of this encounter (statuses as of 04/21/2023) Medications Medication Sig Dispensed Refills Start Date End Date Status VITAMIN D3 2000 UNITS PO CAPSIndications:V itamin D insufficiency 1 CAPSULE DAILY 90 Cap 3 01/03/20 12 Active Calcium 600 MG Oral Tablet Take 1 Tablet by mouth in the morning. 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 TAKE 2 TABLETS BY MOUTH ON MON, WED, FRI, AND TAKE 1 TABLET ALL OTHER DAYS OR DIRECTED BY ANTICOAGULATION CLINIC 100 Tablet 5 10/05/19 23 Active amLODIPine Besylate 5 MG Oral Tablet (Norvasc)Indicati ons:HTN, goal below 140/90 Take 1 tablet by mouth once daily 90 Tablet 3 01/07/20 23 Active Lansoprazole 30 MG Oral Capsule Delayed Release (Prevacid)Indicat ions:Gastroesopha geal reflux disease with esophagitis without hemorrhage TAKE 1 CAPSULE BY MOUTH ONCE DAILY 30 MINUTES BEFORE BREAKFAST 90 Capsule 1 01/21/20 23 Active Klor-Con M10 10 MEQ Oral Tablet Extended ReleaseIndication s:HTN, goal below 150/90 Take 1 Tablet by mouth in the morning. 90 Tablet 3 03/14/20 23 Active Lisinopril 2.5 MG Oral Tablet (Prinivil)Indicat ions:HTN, goal below 150/90 Take 1 Tablet by mouth in the morning and 1 Tablet before bedtime. 0 03/18/20 23 Active Metoprolol Succinate ER 25 MG Oral Tablet Extended Release 24 Hour (toPROL XL) Take 3 Tablets by mouth in the morning and 3 Tablets before bedtime. 0 03/18/20 23 Active Flecainide Acetate 100 MG Oral Tablet (Tambocor)Indicat ions:Paroxysmal atrial fibrillation (HCC) Take 1 tablet by mouth twice daily 180 Tablet 3 04/06/19 24 Active Benzonatate 100 MG Oral CapsuleIndication s:Bronchitis, complicated Take 1 Capsule by mouth 3 times a day as needed for Cough. 30 Capsule 1 04/06/19 24 Active Spironolactone 25 MG Oral Tablet (Aldactone)Indica tions:HTN, goal below 140/90,Peripheral edema,Hypokalemia Take 1/2 (one-half) tablet by mouth once daily 45 Tablet 3 04/21/19 24 Active Spironolactone 25 MG Oral Tablet (Aldactone)Indica tions:HTN, goal below 140/90,Peripheral edema,Hypokalemia Take 1/2 (one-half) tablet by mouth once daily 45 Tablet 5 02/12/20 22 024 Discontinued documented as of this encounter (statuses as of 04/21/2023) Active Problems Problem Noted Date Diagnosed Date [...] 150/90 01/31/2009 Overview: Modified per HTN Taxonomy. 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 1 04/03/2005 documented as of this encounter (statuses as of 04/21/2023) Resolved Problems Problem Noted Date Diagnosed Date [...] BID then 100mg BID(uptitrated spring 2013) plus jvmb-aa-eso-pocket Well controlled until 01/2014 Admission 01/30- for rapid AF-> changed to sotalol -> admission 02/05 -> changed to amiodarone AMiodarone 400mg QD On warfarin chcf ([id number]=OKD,BCL66-86,FEMALE=3) July 2013 Echo EF 60% mod LA enlargement 1+ MR, 1+ TR Pulmonary Vein Isolation (RF) 02/2014 AMiodarone discontinued 03/2014 for abdominal discomfort Abnormal mammogram 01/29/2003 9 BENIGN HYPERTENSION 02/01/20 09 Overview: Modified per HTN Taxonomy. Menopause 01/29/2015 documented as of this encounter (statuses as of 04/21/2023) Immunizations Name Administration Dates Next Due COVID-19 [...] on file documented as of this encounter Miscellaneous Notes * Telephone Encounter - Indu Betancur DO - 04/21/2023 8:39 AM ESTSigned Prescriptions: Disp Refills Spironolactone 25 MG Oral Tablet (Aldacton*45 Tab*3 Sig: Take 1/2 (one-half) tablet by mouth once daily Authorizing Provider: INDU BETANCUR * Telephone Encounter - Guerita Hollis COT - 04/20/2023 11:17 AM ESTPending Prescriptions: Disp Refills Spironolactone 25 MG Oral Tablet (Aldacton*45 Tab*3 Sig: Take 1/2 (one-half) tablet by mouth once daily * Telephone Encounter - Guerita Hollis COT - 04/20/2023 11:17 AM EST Did you pend patient's preferred pharmacy and medication before forwarding?yes Pharmacy: [facility] [address] [place] [address] [place] [address] Pending Prescriptions: Disp Refills Spironolactone 25 MG Oral Tablet (Aldacto*45 Tab*3 Sig: Take 1/2 (one-half) tablet by mouth once daily Last Visit: 04/13/2023 (in office), Visit date not found (telemedicine) Next Visit: 05/18/2023 If no future appointments scheduled, and last appointment is greater than a year ago, please schedule patient for a follow-up appointment Last date the medication was ordered: 02-11-2022 Is this request for a controlled substance?No Urine Drug Screen:No results found. However, due to the size of the patient record, not all encounters were searched. Please check Results Review for a complete set of results. Patient Phone Numbers Labs: Lab Results Component Value Date/Time CREAT 1.1 (H) 03/18/2023 01:19 PM CREAT 1.18 04/10/2021 12:00 AM CREAT 1.1 (H) 04/18/2020 10:27 AM CREAT 0.8 07/02/1996 03:25 PM POTASSIUM 5.0 03/18/2023 01:19 PM POTASSIUM 3.8 04/10/2021 12:00 AM POTASSIUM 4.2 04/18/2020 10:27 AM POTASSIUM 3.8 07/02/1996 03:25 PM TSH 0.92 03/17/2021 03:26 PM TSH 0.87 04/19/2019 11:09 AM LDLCALC 65 09/26/2020 09:20 AM LDLCALC 48 09/12/2019 03:29 PM LDLDIRECT 62 04/02/2022 03:00 PM LDLDIRECT NOT APPLICABLE 09/12/2019 03:29 PM LDLDIRECT 80 07/23/2013 09:58 AM ALT 14 04/02/2022 03:00 PM ALT 17 09/12/2019 03:29 PM HGBA1C 5.3 09/30/2022 11:39 AM documented in this encounter Plan of Treatment Upcoming Encounters Date Type Department Care Team (Late st Contact Info) Description 04/27/2023 9:40 AM EST Anticoagulation Pharmacy, [address] [place] [address] [place] [address] 05/18/2023 9:00 AM EST Cardiac Studies [address]iology, [address] [address] Jackie Pacer [facility] 132 [facility] [place] [address] 05/31/2023 11:00 AM EST Office Visit Cardiology, [facility] 132 [facility] [place] [address] Aye Musa, [facility] [phone] 09/19/2023 12:20 PM EDT Office Visit Family Medicine [address] [place] [phone] Ebony Noriega PA-C [address] [place] [address] [place] [address] 11/03/2023 10:45 AM EDT Office Visit Dermatology [employer] [address] [place] [address] Buffy De Souza MD [address] [place] [address] 01/12/2024 10:30 AM EDT Office Visit [facility] Disorders Ctr [facility] [place] [address] [place] [phone] Tari Gardner CRNP [address] [place] [address] 03/19/2024 1:00 PM EST Office Visit Family Medicine [address] [place] [phone] Gregory Goodson MD [address] [place] [address] [place] [address] Health Maintenance Due Date Last Done Comments DTaP,Tdap,and Td Vaccines (1 - Tdap) 1959 COVID-19 Vaccine (4 - 2022-24 season) 2022 03/17/2021, 07/23/2020, 06/18/2020 [...] D LEVEL ONCE IN A LIFETIME-USE SMARTSET# [id number] Completed 01/20/2022, 04/04/2020, 03/23/2019, Additional history exists [...] this encounter Medical Devices Implanted Type Area Packer Inspector Device Identifier Shelf Expiration Date Model / Serial / Lot Lens Intraoc 22.5 - [id number] - [id number] Implanted:Qty: 1 on 04/15/2022 by Armand Mallory MD at [facility] Right: Eye [employer]OM[employer] 12/25/2026 [id number] / [id number] / [id number] Lens Intraoc 22.5 - [id number] - [id number] Implanted:Qty: 1 on 04/22/2022 by Armand Mallory MD at [facility] Left: Eye [employer]CH [employer] LOMB 02/24/2027 [id number] / [id number] / [id number] documented as of this encounter Visit Diagnoses Diagnosis HTN, goal below 140/90 Unspecified essential hypertension Peripheral edema Edema Hypokalemia Hypopotassemia documented in this encounter Additional Health Concerns Infection Onset Date Last Indicated Resolved Time RSV 03/30/2023 03/30/2023 04/20/2023 12:1 9 AM EST documented as of this encounter Advance Directives [...] the patient have Health Care Power of Claim Auditor? No Code Status History Code Status Date Activated Date Inactivated Comments No Code 04/15/2022 7:59 AM 04/15/2022 2:36 PM This order reflects the patients wishes and were consensually agreed upon. Question Answer Comments Discussion of Advance Directives occurred with: Patient Does the patient have a Living Will? No Does the patient have Health Care Power of Claim Auditor? No Full Code 03/04/2014 1:13 PM 03/05/2014 2:17 PM This order reflects the patients wishes and were consensually agreed upon. Healthcare Agents on File Name Relationship Healthcare Agent Relationshi p Communication Gramling Rony Spouse Health Care Repr esentative (appointed verbally by patient or by statute hierarchy) Care Teams Field Test Engineer Relationship Specialty Start Date End Date Gregory Goodson MD [address] [place] [address] [place] [phone] PCP - General Family Medicine 10/23/13 documented as of this encounter
--- OUTSIDE RECORDS SUMMARY | 2023-05-09 04:40 | External Medical Summary ---
Author Name Unknown Address Unknown Organization : Laboratory Report Ordering Provider Test Date Status JUSTIN MONSIVAIS 04/27/2023 09:34:22 Final Therapeutic ranges for non-o perative patients:
Prophylaxsis/treatment of DVT: (Range:2.0-3.0)
Treatment of pulmonary embolism:(Range:2.0-3.0)
Prevention of systemic embolism from:
-tissue heart valves
-acute myocardial infarction
-valvular heart disease
-atrial fibrillation
(Range: 2.0-3.0)
Mechanical prosthetic valves: (Range: 2.5-3.5) Observation Date Value Abnormality Reference (Units ) Status INR in Capillary blood by Coagulation assay 04/27/2023 09:34:22 2.5 (INR) Final Performing Location
--- OUTSIDE RECORDS SUMMARY | 2023-05-09 04:40 | External Medical Summary | Summary of Care ---
Author Name Unknown Organization [facility] Address [address] [place] [address] Phone [phone] Care Team Providers Care Candle Wrapper Name Role Phone Gregory Goodson MD Primary Care Provide r Reason for Visit * Reason Comments Dosage Adjustment In Person (Anticoag Cl inic) Encounter Details Date Type Department Care Team (Latest Contact Info) Description 04/27/2023 9:40 AM EST Anticoagulation Pharmacy, [address] [place] [address] [place] [address] Paroxysmal atrial fibrillation (HCC)*; Anticoagulation management encounter; snuff drier current use of anticoagulant therapy Allergies Active Allergy Reactions Criticality Noted Date Comments Penicillins 04/04/2000 rash documented as of this encounter (statuses as of 04/27/2023) Medications Medication Sig Dispensed Refills Start Date End Date Status VITAMIN D3 2000 UNITS PO CAPSIndications:Vi tamin D insufficiency 1 CAPSULE DAILY 90 Cap 3 01/03/2012 Active Calcium 600 MG Oral Tablet Take 1 Tablet by mouth in the morning. 0 Active Pravastatin Sodium 40 MG Oral Tablet (Pravachol)Indicat ions:Dyslipidemia, goal LDL below 100 TAKE 1 TABLET BY MOUTH ONCE DAILY AT BEDTIME 90 Tablet 3 06/11/2022 Active Warfarin Sodium 2.5 MG Oral Tablet (Coumadin)Indicati ons:Paroxysmal atrial fibrillation (HCC),Anticoagulat ion management encounter,snuff drier current use of anticoagulant therapy TAKE 2 [...] twice daily 180 Tablet 3 04/06/2023 Active Benzonatate 100 MG Oral CapsuleIndications :Bronchitis, complicated Take 1 Capsule by mouth 3 times a day as needed for Cough. 30 Capsule 1 04/06/2023 Active Spironolactone 25 MG Oral Tablet (Aldactone)Indicat ions:HTN, goal below 140/90,Peripheral edema,Hypokalemia Take 1/2 (one-half) tablet by mouth once daily 45 Tablet 3 04/21/2023 Active documented as of this encounter (statuses as of 04/27/2023) Active Problems Problem Noted Date Diagnosed Date Atrial flutter 03/18/2023 Age-related osteoporosis wit hout current pathological fracture 01/21/2022 Cardiac pacemaker in situ 09/25/2021 Tachy-syed syndrome 09/25/2021 Gastroesophageal reflux disease 06/12/2021 Nonrheumatic aortic valve insufficiency 09/27/19 Nonrheumatic mitral valve regurgitation 09/27/19 21 Peripheral edema 09/26/2020 History of GI bleed [...] 150/90 01/31/2009 Overview: Modified per HTN Taxonomy. 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 Menopause 01/29/2015 documented as of this encounter (statuses as of 04/27/2023) Immunizations Name Administration Dates Next Due COVID-19 [...] on file documented as of this encounter Progress Notes * Aide Chaudhry RPh - 04/27/2023 9:31 AM EST Medication Therapy Disease Management - Anticoagulation Patient: Marissa Uribe | : 1940 Subjective Patient-Reported Symptoms: Patient Findings Negatives: Signs/symptoms of thrombosis, Signs/symptoms of bleeding, Change in health, Change in alcohol use, Change in activity, Upcoming invasive procedure, Missed doses, Extra doses, Change in medications, Change in diet/appetite, Bruising Objective Current Warfarin Dose As of 04/27/2023 Warfarin maintenance plan: 2.5 mg (2.5 mg x 1) every day INR Result As of 04/27/2023 INR goal: 2.0-3.0 INR used for dosin.5 (04/27/2023) Assessment & Plan Warfarin Plan As of 04/27/2023 Full warfarin instructions: 2.5 mg every day No change documented: Aide Chaudhry RPh Next INR check: 05/25/2023 Repeat PT/INR in 4 week(s) Weekly dose: not changed Additional Dosing Information: Aide Chaudhry RPh Clinical Pharmacist 04/27/2023, 9:31 AM documented in this encounter Plan of Treatment Upcoming Encounters Date Type Department Care Team (Late st Contact Info) Description 05/18/2023 9:00 AM EST Cardiac Studies Cardiology, [facility] 132 [facility] [place] [address] Movwilber Pacer [facility] 132 [facility] [place] [address] 05/25/2023 9:30 AM EST Anticoagulation Pharmacy, [address] [place] [address] [place] [address] 05/31/2023 11:00 AM EST Office Visit Cardiology, [facility] 132 [facility] [place] [address] Aye Musa CRNP [facility] [phone] 09/19/2023 12:20 PM EDT Office Visit Family Medicine [address] [place] [phone] Ebony Noriega PA-C [address] [place] [address] [place] [address] 11/03/2023 10:45 AM EDT Office Visit Dermatology [facility] [address] [place] [address] Buffy De Souza MD [address] [place] [address] 01/12/2024 10:30 AM EDT Office Visit Sleep Disorders Ctr [facility] 132 [facility] [place] [phone] Tari Gardner CRNP [address] [place] [address] 03/19/2024 1:00 PM EST Office Visit Family Medicine [address] [place] [phone] Gregory Goodson MD [address] [place] [address] [place] [phone] Health Maintenance Due Date Last Done Comments [...] D LEVEL ONCE IN A LIFETIME-USE SMARTSET# [id number] Completed 01/20/2022, 04/04/2020, 03/23/2019, Additional history exists [...] this encounter Medical Devices Implanted Type Area Hip Hop Performers Device Identifier Shelf Expiration Date Model / Serial / Lot Lens Intraoc 22.5 - [id number] - [id number] Implanted:Qty: 1 on 04/15/2022 by Armand Mallory MD at [facility] Right: Eye [employer]OM[employer] 12/25/2026 [id number] / [id number] / [id number] Lens Intraoc 22.5 - [id number] - [id number] Implanted:Qty: 1 on 04/22/2022 by Armand Mallory MD at [facility] Left: Eye BAUSCH [employer] LOMB 02/24/2027 [id number] / [id number] / [id number] documented as of this encounter Procedures Procedure Name Priority Date/Time Associated Diagnosis Comments INR FINGERSTICK, POINT OF CARE STAT 04/27/2023 9:34 AM EST Paroxysmal atrial fibrillation (HCC) Anticoagulation management encounter longterm current use of anticoagulant therapy documented in this encounter Results * INR FINGERSTICK, POINT OF CARE (04/27/2023 9:34 AM EST) Fingerstick INR 2.5 INR 9:36 AM EST [facility] Blood 04/27/2023 9:34 AM EST 04/27/2023 9:36 AM EST Narrative [facility] - 04/27/2023 9:36 AM EST Therapeutic ranges for non-operative patients: Prophylaxsis/treatment of DVT: (Range:2.0-3.0) Treatment of pulmonary embolism:(Range:2.0-3.0) Prevention of systemic embolism from: -tissue heart valves -acute myocardial infarction -valvular heart disease -atrial fibrillation (Range: 2.0-3.0) Mechanical prosthetic valves: (Range: 2.5-3.5) Aide Chaudhry [facility] POINT OF CARE TEST DOCKED DEVICE UNSOLICITED RESULTS [facility] [place] [address] documented in this encounter Visit Diagnoses Diagnosis Paroxysmal atrial fibrillation (HCC)- Primary Atrial fibrillation Anticoagulation management encounter Encounter for therapeutic drug monitoring snuff drier current use of anticoagulant therapy documented in this encounter Advance Directives Latest Code Status on File Code Status Date Activated Date Inactivated Comments No Code 04/22/2022 8:35 AM 04/22/2022 2:59 PM This order reflects the patients wishes and were consensually agreed upon. Question Answer Comments Discussion of Advance Directives occurred with: Patient Does the patient have a Living Will? No Does the patient have Health Care Power of Field Supervisor? No Code Status History Code Status Date Activated Date Inactivated Comments No Code 04/15/2022 7:59 AM 04/15/2022 2:36 PM This order reflects the patients wishes and were consensually agreed upon. Question Answer Comments Discussion of Advance Directives occurred with: Patient Does the patient have a Living Will? No Does the patient have Health Care Power of Field Supervisor? No Full Code 03/04/2014 1:13 PM 03/05/2014 2:17 PM This order reflects the patients wishes and were consensually agreed upon. Healthcare Agents on File Name Relationship Healthcare Agent Relationshi p Communication Wetzel Rony Spouse Health Care Repr esentative (appointed verbally by patient or by statute hierarchy) Care Teams Candle Wrapper Relationship Specialty Start Date End Date Gregory Goodson MD [address] [place] [address] [place] [address] PCP - General Family Medicine 10/23/13 documented as of this encounter"
--- OUTSIDE RECORDS SUMMARY | 2023-05-09 04:40 | External Medical Summary | Summary of Care ---
Author Name Unknown Organization [facility] Address [address] [place] [address] Phone [phone] Care Team Providers Care Seamless Tube Roller Name Role Phone Gregory Goodson MD Primary Care Provide r Reason for Visit * Reason Comments Dosage Adjustment Via Phone (anticoag Cl inic) Encounter Details Date Type Department Care Team (Latest Contact Info) Description 04/13/2023 5:30 PM EST Anticoagulation Pharmacy, [address] [place] [address] [place] [address] Paroxysmal atrial fibrillation (HCC)* Allergies Active Allergy [...] (Coumadin)Indicati ons:Paroxysmal atrial fibrillation (HCC),Anticoagulat ion management encounter,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 Until gone.. 20 Capsule 0 04/06/2023 4 Active Benzonatate 100 MG Oral CapsuleIndications :Bronchitis, [...] 150/90 01/31/2009 Overview: Modified per HTN Taxonomy. 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 1 04/03/2005 [...] term Dysuria 02/10/2007 01/16/2014 Atrial fibrillation 03/24/2005 11/23/20 18 Overview: Flecainide 50mg BID then 100mg BID(uptitrated spring 2013) plus ziju-ll-bwq-pocket Well controlled until 01/2014 Admission 01/30- for rapid AF-> changed to sotalol -> admission 02/05 -> changed to amiodarone AMiodarone 400mg QD On warfarin prison ([id number],[id number],FEMALE=3) July 2013 Echo EF 60% mod LA [...] of this encounter Progress Notes * Aide Chaudhry, [facility] - 04/13/2023 12:08 PM EST Images from the original note were not included. Medication Therapy Disease Management - Anticoagulation Patient: Marissa Gutierrez Rony | : 1940 Subjective Contacts Type Contact Phone/Fax 04/13/2023 12:12 PM EST Phone (Outgoing) Marissa Uribe (Self) [phone] (H) Spoke to Patient Patient-Reported Symptoms: Patient Findings Negatives: Signs/symptoms of thrombosis, Signs/symptoms of bleeding, Change in health, Change in alcohol use, Change in activity, Upcoming invasive procedure, Missed doses, Extra doses, Change in medications, Change in diet/appetite, Bruising Objective Current Warfarin Dose As of 04/13/2023 Warfarin maintenance plan: 5 mg (2.5 mg x 2) every Mon; 2.5 mg (2.5 mg x 1) all other days INR Result As of 04/13/2023 INR goal: 2.0-3.0 INR used for dosin.9 (04/13/2023) Assessment & Plan Warfarin Plan As of 04/13/2023 Full warfarin instructions: 04/13: Hold; Otherwise 2.5 mg every day Next INR check: 04/27/2023 Repeat PT/INR in 2 week(s) Weekly dose: decreased 12.5% Additional Dosing Information: Aide Chaudhry [facility] Clinical Pharmacist 04/13/2023, 12:08 PM documented in this encounter Plan of Treatment Upcoming Encounters Date Type Department Care Team (Late st Contact Info) Description 04/27/2023 9:40 AM EST Anticoagulation Pharmacy, [address] [place] [address] [place] [address] 05/18/2023 9:00 AM EST Cardiac Studies [facility] [address] Jackie Pacer [facility] 132 [facility] [place] [address] 05/31/2023 11:00 AM EST Office Visit Cardiology, [facility] 132 [facility] [place] [address] Aye Msua, SUPRIYA 400 [facility] [place] [address] 09/19/2023 12:20 PM EDT Office Visit Family Medicine [address] [place] [address] Ebony Noriega PA-C [address] [place] [address] [place] [address] 11/03/2023 10:45 AM EDT Office Visit Dermatology [place] [address] [place] [address] [address] Buffy De Souza MD [address] [place] [address] 01/12/2024 10:30 AM EDT Office Visit Sleep Disorders Ctr [facility] [address] [place] [phone] Tari Gardner CRNP [address] [place] [address] 03/19/2024 1:00 PM EST Office Visit Family Medicine [address] [place] [phone] Gregory Goodson MD [address] [place] [address] [place] [address] Health Maintenance Due Date Last Done Comments [...] D LEVEL ONCE IN A LIFETIME-USE SMARTSET# [id number] Completed 01/20/2022, 04/04/2020, 03/23/2019, Additional history exists [...] this encounter Medical Devices Implanted Type Area Policy Intern Device Identifier Shelf Expiration Date Model / Serial / Lot Lens Intraoc 22.5 - [id number] - [id number] Implanted:Qty: 1 on 04/15/2022 by Armand Mallory MD at OR [facility] Right: Eye [employer] 12/25/2026 [id number] / [id number] / [id number] Lens Intraoc 22.5 - [id number] - [id number] Implanted:Qty: 1 on 04/22/2022 by Armand Mallory MD at OR [facility] Left: Eye [employer]OM[employer] 02/24/2027 [id number] / [id number] / [id number] documented as of this encounter Visit Diagnoses [...] the patient have Health Care Power of Director Of Respiratory Therapy? No Code Status History Code Status Date Activated Date Inactivated Comments No Code 04/15/2022 7:59 AM 04/15/2022 2:36 PM This order reflects the patients wishes and were consensually agreed upon. Question Answer Comments Discussion of Advance Directives occurred with: Patient Does the patient have a Living Will? No Does the patient have Health Care Power of Director Of Respiratory Therapy? No Full Code 03/04/2014 1:13 PM 03/05/2014 2:17 PM This order reflects the patients wishes and were consensually agreed upon. Healthcare Agents on File Name Relationship Healthcare Agent Relationshi p Communication Edu Rony Spouse Health Care Repr esentative (appointed verbally by patient or by statute hierarchy) Care Teams Seamless Tube Roller Relationship Specialty Start Date End Date Gregory Goodson MD [address] [place] [address] [place] [address] PCP - General Family Medicine 10/23/13 documented as of this encounter"
--- OUTSIDE RECORDS SUMMARY | 2023-05-09 04:41 | External Medical Summary | Summary of Care ---
Author Name Unknown Organization [facility] Address [address] [place] [address] Phone [phone] Care Team Providers Care Script Developer Name Role Phone Gregory Goodson MD Primary Care Provide r Reason for Visit * Reason Onset Date Comments Appointment 04/01/2023 Encounter Details Date Type Department Care Team ([facility] Contact Info) Description 04/01/2023 Telephone Pharmacy Call Center [phone] [facility] [place] [address] [place] [address] Appointment Allergies Active Allergy Reactions Criticality Noted Date Comments Penicillins 04/04/2000 rash documented as of this encounter (statuses as of 04/01/2023) Medications Medication Sig Dispensed Refills Start Date [...] taking differently: Mon,Wed,Fri only, Reported on 06/22/2022 Flecainide Acetate 100 MG Oral Tablet (Tambocor)Indicati ons:Paroxysmal atrial fibrillation (HCC) Take 1 tablet by mouth twice daily 180 Tablet 3 04/07/2022 Active Pravastatin Sodium 40 MG Oral Tablet (Pravachol)Indicat ions:Dyslipidemia, goal LDL below 100 TAKE 1 TABLET BY MOUTH ONCE DAILY AT BEDTIME 90 Tablet 3 06/11/2022 Active Warfarin Sodium 2.5 MG Oral Tablet (Coumadin)Indicati ons:Paroxysmal atrial fibrillation (HCC),Anticoagulat ion management encounter,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 0 03/18/2023 Active documented as of this encounter (statuses as of 04/01/2023) Active Problems Problem Noted Date Diagnosed Date Atrial flutter 03/18/2023 Age-related osteoporosis wit hout current pathological fracture 01/21/2022 Cardiac pacemaker in situ 09/25/2021 Tachy-syed syndrome 09/25/2021 Gastroesophageal reflux disease 06/12/2021 Nonrheumatic aortic valve insufficiency 09/27/19 21 Nonrheumatic mitral valve regurgitation 09/27/19 21 Peripheral [...] 150/90 01/31/2009 Overview: Modified per HTN Taxonomy. half-way current use of anticoagulant therapy 1 04/03/2005 documented as of this encounter (statuses as of 04/01/2023) Resolved Problems Problem Noted Date Diagnosed Date [...] BID then 100mg BID(uptitrated spring 2013) plus ebyd-jv-wnn-pocket Well controlled until 01/2014 Admission for rapid AF-> changed to sotalol -> admission 02/05 -> changed to amiodarone AMiodarone 400mg QD On warfarin intermediate ([id number],[id number],FEMALE=3) July 2013 Echo EF 60% mod LA enlargement 1+ MR, 1+ TR Pulmonary Vein Isolation (RF) 02/2014 AMiodarone discontinued 03/2014 for abdominal discomfort Abnormal mammogram 01/29/2003 9 BENIGN HYPERTENSION 02/01/20 09 Overview: Modified per HTN Taxonomy. Menopause 01/29/2015 documented as of this encounter (statuses as of 04/01/2023) Immunizations Name Administration Dates Next Due COVID-19 [...] encounter Miscellaneous Notes * Telephone Encounter - Aide Chaudhry RPh - 04/01/2023 8:44 AM EST Patient Phone Numbers Returned patient's call. Discussed the need for weekly INR monitoring d/t recent cardioversion. Discussed risks associated with lack of monitoring. Patient expressed understanding and accepts these. Appointment rescheduled for 04/04. Aide Chaudhry RPh, PharmD Clinical Pharmacist - Reforestation Worker Medication Therapy [facility] 04/01/2023, 8:45 AM [phone] * Telephone Encounter - Rose Marie Doan PHARM Tech - 04/01/2023 8:35 AM EST Caller's name: Marissa Preferred call back number(OFFICE NUMBER FOR ): [phone] Reason for call: Pt calling to ask if she needs to come to her appt today as she isnt feeling good.Please advise and return her call. Thank you, Rose Marie Doan Recovery Coordinator [facility] 04/01/2023,8:36 AM documented in this encounter Plan of Treatment Upcoming Encounters Date Type Department Care Team (Late st Contact Info) Description 04/04/2023 10:40 AM EST Anticoagulation Pharmacy, [address] [place] [address] [place] [address] 04/13/2023 10:00 AM EST Office Visit Cardiology, [facility] [place] [address] Bernardino Betancur, 132 [facility] [place] [address] 05/18/2023 9:00 AM EST Cardiac Studies Cardiology, [facility] 132 [facility] [place] [address] Dalila Mejia [facility] 132 [facility] [place] [address] 05/31/2023 11:00 AM EST Office Visit Cardiology, [facility] 132 [facility] [place] [address] Aye Musa, ASSEMBLER KNIFE [facility] [address] 09/19/2023 12:20 PM EDT Office Visit Family Medicine [address] [place] [address] Ebony Noriega PAXavier [address] [place] [address] [place] [address] 11/03/2023 10:45 AM EDT Office Visit Dermatology [place] [address] [place] [address] Buffy De Souza MD [address] [place] [address] 01/12/2024 10:30 AM EDT Office Visit Sleep Disorders Ctr [facility] 132 [facility] [place] [address] Tari Gardner CRNP [address] [place] [address] 03/19/2024 1:00 PM EST Office Visit Family Medicine [address] [place] [phone] Gregory Goodson MD [address] [place] [address] [place] [address] Health Maintenance Due Date Last Done Comments DTaP,Tdap,and Td Vaccines (1 - Tdap) 1959 COVID-19 Vaccine (4 - 2022- season) 2022 03/17/2021, 07/23/2020, 06/18/2020 *BISPHONATE OR [...] D LEVEL ONCE IN A LIFETIME-USE SMARTSET# [id number] Completed 01/20/2022, 04/04/2020, 03/23/2019, Additional history exists [...] this encounter Medical Devices Implanted Type Area Air Conditioning Installer Supervisor Device Identifier Shelf Expiration Date Model / Serial / Lot Lens Intraoc 22.5 - [id number] - [id number] Implanted:Qty: 1 on 04/15/2022 by Armand Mallory MD at OR [facility] Right: Eye [employer] 12/25/2026 [id number] / [id number] / [id number] Lens Intraoc 22.5 - [id number] - [id number] Implanted:Qty: 1 on 04/22/2022 by Armand Mallory MD at OR [facility] Left: Eye [employer]CH [employer] LOMB 02/24/2027 [id number] / [id number] / [id number] documented as of this encounter Additional Health Concerns Infection Onset [...] the patient have Health Care Power of Customer Engagement Analyst? No Code Status History Code Status Date Activated Date Inactivated Comments No Code 04/15/2022 7:59 AM 04/15/2022 2:36 PM This order reflects the patients wishes and were consensually agreed upon. Question Answer Comments Discussion of Advance Directives occurred with: Patient Does the patient have a Living Will? No Does the patient have Health Care Power of Customer Engagement Analyst? No Full Code 03/04/2014 1:13 PM 03/05/2014 2:17 PM This order reflects the patients wishes and were consensually agreed upon. Healthcare Agents on File Name Relationship Healthcare Agent Relationshi p Communication [place] Rony Spouse Health Care Repr esentative (appointed verbally by patient or by statute hierarchy) Care Teams Script Developer Relationship Specialty Start Date End Date Gregory Goodson MD [address] [place] [address] [place] [address] PCP - General Family Medicine 10/23/13 documented as of this encounter
--- OUTSIDE RECORDS SUMMARY | 2023-05-09 04:41 | External Medical Summary ---
Author Name Unknown Address Unknown Organization : Laboratory Report Ordering Provider Test Date Status JUSTIN MONSIVAIS 03/25/2023 13:35:12 Final Therapeutic ranges for non-o perative patients:
Prophylaxsis/treatment of DVT: (Range:2.0-3.0)
Treatment of pulmonary embolism:(Range:2.0-3.0)
Prevention of systemic embolism from:
-tissue heart valves
-acute myocardial infarction
-valvular heart disease
-atrial fibrillation
(Range: 2.0-3.0)
Mechanical prosthetic valves: (Range: 2.5-3.5) Observation Date Value Abnormality Reference (Units ) Status INR in Capillary blood by Coagulation assay 03/25/2023 13:35:12 3.1 (INR) Final Performing Location
--- OUTSIDE RECORDS SUMMARY | 2023-05-09 04:41 | External Medical Summary | Summary of Care ---
Author Name Unknown Organization [facility] Address [address] [place] [address] Phone [phone] Care Team Providers Care Hosiery Looper Name Role Phone Gregory Goodson MD Primary Care Provide r Reason for Visit * Reason Comments Outpatient Testing Encounter Details Date Type Department Care Team ([facility] st Contact Info) Description 03/18/2023 1:40 PM EST Laboratory Laboratory [address] [place] [phone] [place] [address] Paroxysmal atrial fibrillation (HCC) Allergies Active Allergy Reactions Criticality Noted Date Comments Penicillins 04/04/2000 rash documented as of this encounter (statuses as of 03/18/2023) Medications Medication Sig Dispensed Refills Start Date [...] (Coumadin)Indicati ons:Paroxysmal atrial fibrillation (HCC),Anticoagulat ion management encounter,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 TAKE 2 [...] as of this encounter (statuses as of 03/18/2023) Active Problems Problem Noted Date Diagnosed Date [...] as of this encounter (statuses as of 03/18/2023) Resolved Problems Problem Noted Date Diagnosed Date [...] BID then 100mg BID(uptitrated spring 2013) plus dvot-un-fyr-pocket Well controlled until 01/2014 Admission for rapid AF-> changed to sotalol -> admission 02/05 -> changed to amiodarone AMiodarone 400mg QD 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 132 [facility] [place] [address] Bernardino Betancur DO 132 [facility] [place] [address] 05/18/2023 9:00 AM EST Cardiac Studies Cardiology, [facility] 132 [facility] [place] [address] Dalila Mejia [facility] 132 [facility] [place] [address] 05/31/2023 11:00 AM EST Office Visit Cardiology, [facility] 132 [facility] [place] [address] Aye Musa CRNP [address] [place] [address] 09/19/2023 12:20 PM EDT Office Visit [address] [place] [phone] Ebony Noriega PA-C [address] [place] [address] [place] [address] 11/03/2023 10:45 AM EDT Office Visit Dermatology [facility] 200 [facility] [place] [address] Buffy De Souza MD 200 [facility] [place] [address] 01/12/2024 10:30 AM EDT Office Visit Sleep Disorders Ctr [facility] [address] [place] [phone] Tari Gardner CRNP [address] [place] [address] 03/19/2024 1:00 PM EST Office Visit [address] [place] [phone] Gregory Goodson MD [address] [place] [address] [place] [address] Pending Results Name Type Priority Associated Diagnoses Date /Time BASIC METABOLIC PANEL Lab Routine Paroxysmal atrial fibrillation (HCC) 03/18/2023 1:19 PM EST Health Maintenance Due Date Last Done Comments DTaP,Tdap,and Td Vaccines (1 - Tdap) 1959 COVID-19 Vaccine ( season) 2022 03/17/2021, 07/23/2020, 06/18/2020 Depression Screening 10/01/2023 09/30/2022 GFR 10/01/2023 09/30/2022, 010 08/2022, 01/20/2022, Additional history exists DXA Scan 01/21/2024 01/20/2022, 12/27, 12/25/2019, Additional history exists Albumin/Creatinine Ratio 04/02/2025 04/02/2022, 01/27 Pneumococcal Vaccine: 65+ Years Completed 01/29/2015, 06/05/2007 Zoster Vaccines Completed 10/31/2019, 07/2019, 09/14/2014 VITAMIN D LEVEL ONCE IN A LIFETIME-USE SMARTSET# [id number] Completed 01/20/2022, 04/04/2020, 03/23/2019, Additional history exists [...] this encounter Medical Devices Implanted Type Area Reference Archivist Device Identifier Shelf Expiration Date Model / Serial / Lot Lens Intraoc 22.5 - [id number] - [id number] Implanted:Qty: 1 on 04/15/2022 by Armand Mallory MD at OR [facility] Right: Eye [employer]OM[employer] 12/25/2026 [id number] / [id number] / [id number] Lens Intraoc 22.5 - [id number] - [id number] Implanted:Qty: 1 on 04/22/2022 by Armand Mallory MD at OR [facility] Left: Eye [employer]CH [employer] LOMB 02/24/2027 [id number] / [id number] / [id number] documented as of this encounter Visit Diagnoses Diagnosis Paroxysmal atrial fibrillation (HCC)- Primary Atrial fibrillation Anticoagulation management encounter Encounter for therapeutic drug monitoring 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 Question Answer Comments Discussion of Advance Directives occurred with: Patient Does the patient have a Living Will? No Does the patient have Health Care Power of Tinsmith Apprentice? No Code Status History Code Status Date Activated Date Inactivated Comments No Code 04/15/2022 7:59 AM 04/15/2022 2:36 PM This order reflects the patients wishes and were consensually agreed upon. Question Answer Comments Discussion of Advance Directives occurred with: Patient Does the patient have a Living Will? No Does the patient have Health Care Power of Tinsmith Apprentice? No Full Code 03/04/2014 1:13 PM 03/05/2014 2:17 PM This order reflects the patients wishes and were consensually agreed upon. Healthcare Agents on File Name Relationship Healthcare Agent Relationshi p Communication [place] Rony Spouse Health Care Repr esentative (appointed verbally by patient or by statute hierarchy) Care Teams Hosiery Looper Relationship Specialty Start Date End Date Gregory Goodson MD [address] [place] [address] [place] [address] PCP - General Family Medicine 10/23/13 documented as of this encounter
--- OUTSIDE RECORDS SUMMARY | 2023-05-09 04:41 | External Medical Summary ---
Author Name Unknown Address Unknown Organization : Laboratory Report Ordering Provider Test Date Status JUSTIN MONSIVAIS 03/18/2023 13:37:16 Final Therapeutic ranges for non-o perative patients:
Prophylaxsis/treatment of DVT: (Range:2.0-3.0)
Treatment of pulmonary embolism:(Range:2.0-3.0)
Prevention of systemic embolism from:
-tissue heart valves
-acute myocardial infarction
-valvular heart disease
-atrial fibrillation
(Range: 2.0-3.0)
Mechanical prosthetic valves: (Range: 2.5-3.5) Observation Date Value Abnormality Reference (Units ) Status INR in Capillary blood by Coagulation assay 03/18/2023 13:37:16 2.9 (INR) Final Performing Location
--- OUTSIDE RECORDS SUMMARY | 2023-05-09 04:41 | External Medical Summary | Summary of Care ---
Author Name Unknown Organization [facility] Address [address] [place] [address] Phone [phone] Care Team Providers Care Television Journalist Name Role Phone Gregory Goodson MD Primary Care Provide r Reason for Visit * Reason Comments Cough Productive cough, sn eezing, fatigue since Sat, has not taken anything for symptoms Encounter Details Date Type Department Care Team (Late st Contact Info) Description 03/30/2023 10:00 AM EST Office Visit Family Practice [facility] [address] [place] [address] Kenney Meier DO 132 [facility] [place] [address] Viral URI with cough*; Paroxysmal atrial fibrillation (HCC); Typical atrial flutter (HCC); HTN, goal below 150/90 Allergies Active Allergy Reactions Criticality Noted Date Comments Penicillins 04/04/2000 rash documented as of this encounter (statuses as of 03/30/2023) Medications Medication Sig Dispensed Refills Start Date [...] (Coumadin)Indicati ons:Paroxysmal atrial fibrillation (HCC),Anticoagulat ion management encounter,snf current use of anticoagulant therapy TAKE 2 TABLETS BY MOUTH ON TUE, TUE, TUE, AND TAKE 1 TABLET ALL OTHER DAYS [...] as of this encounter (statuses as of 03/30/2023) Active Problems Problem Noted Date Diagnosed Date [...] 150/90 01/31/2009 Overview: Modified per HTN Taxonomy. 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 1 04/03/2005 documented as of this encounter (statuses as of 03/30/2023) Resolved Problems Problem Noted Date Diagnosed Date [...] BID then 100mg BID(uptitrated spring 2013) plus atwg-oo-tcy-pocket Well controlled until 01/2014 Admission 01/30- for rapid AF-> changed to sotalol -> admission 02/05 -> changed to amiodarone AMiodarone 400mg QD On warfarin alf ([id number],[id number],FEMALE=3) July 2013 Echo EF 60% mod LA enlargement 1+ MR, 1+ TR Pulmonary Vein Isolation (RF) 02/2014 AMiodarone discontinued 03/2014 for abdominal discomfort Abnormal mammogram 01/29/2003 9 BENIGN HYPERTENSION 02/01/20 09 Overview: Modified per HTN Taxonomy. Menopause 01/29/2015 documented as of this encounter (statuses as of 03/30/2023) Immunizations Name Administration Dates Next Due COVID-19 [...] Sign Reading Time Taken Comments Blood Pressure 126/64 03/30/2023 10:00 AM EST Pulse 64 03/30/2023 10:00 AM EST Temperature 37.3 C (99.1 F) 03/30/2023 10:[address] Respiratory Rate 16 03/30/2023 10:00 AM EST Oxygen Saturation 95% 03/30/2023 10:00 AM EST Inhaled Oxygen Concentration - - Weight 69.9 kg (154 lb) 03/30/2023 10:00 AM EST Height - - Body Mass Index 25.63 01/11/2023 3:32 PM EDT documented in this encounter Progress Notes * Kenney Meier, - 03/30/2023 11:14 AM EST Images from the original note were not included. Assessment and Plan Viral URI with cough Educated on conservative treatment to include good hydration, rest, and humidified air. Educated the patient on signs of bacterial illness to include sudden worsening symptoms, high fevers, and increasing severity of illness. Follow up as needed and may treat as indicated based on results of swab - INFLUENZA A/B RSV SARS-COV2,PCR; Future - INFLUENZA A/B RSV SARS-COV2,PCR Paroxysmal atrial fibrillation (HCC) Stable rate Typical atrial flutter (HCC) Stable rate today Encouraged hydration HTN, goal below 150/90 Stable BP History of Present Illness Marissa Uribe is a 82 year old female that presents for Cough (Productive cough, sneezing, fatigue since Sat, has not taken anything for symptoms) Physical Exam Vitals: 03/30/23 1000 Temp: 37.3 C (99.1 F) Pulse: 64 Resp: 16 SpO2: 95% BP: 126/64 Physical Exam Constitutional: Appearance: She is ill-appearing. HENT: Head: Normocephalic and atraumatic. Right Ear: Ear canal and external ear normal. Left Ear: Ear canal and external ear normal. Nose: Mucosal edema, congestion and rhinorrhea present. Eyes: Extraocular Movements: Extraocular movements intact. Conjunctiva/sclera: Conjunctivae normal. Pupils: Pupils are equal, round, and reactive to light. Cardiovascular: Rate and Rhythm: Normal rate and regular rhythm. Heart sounds: No murmur heard. No friction rub. No gallop. Pulmonary: Effort: Pulmonary effort is normal. No tachypnea, respiratory distress or retractions. Breath sounds: Normal breath sounds. Transmitted upper airway sounds present. Musculoskeletal: General: Normal range of motion. Cervical back: Neck supple. Lymphadenopathy: Cervical: Cervical adenopathy present. Skin: General: Skin is warm. Neurological: General: No focal deficit present. Mental Status: She is alert and oriented to person, place, and time. Psychiatric: Mood and Affect: Mood normal. Behavior: Behavior normal. Wrap-Up Follow Up: Return if symptoms worsen or fail to improve. Time: Total time today was 24 minutes excluding any time spent in the performance of separately billed services. documented in this encounter Plan of Treatment Upcoming Encounters Date Type Department Care Team (Late st Contact Info) Description 04/01/2023 1:30 PM EST Anticoagulation Pharmacy, [address] [place] [address] [place] [address] 04/13/2023 10:00 AM EST Office Visit Cardiology, [facility] [address] [facility] [place] [address] Bernardino Betancur DO 132 [place] [address] 05/18/2023 9:00 AM EST Cardiac Studies Cardiology, [facility] [place] [address] [facility] [address] [facility] [place] [address] 05/31/2023 11:00 AM EST Office Visit Cardiology, [facility] [address] [facility] [place] [address] Aye Musa CRNP [address] [place] [address] [place] [phone] 09/19/2023 12:20 PM EDT Office Visit Family [address] [phone] Ebony Noriega PA-C [address] [place] [address] [place] [address] 11/03/2023 10:45 AM EDT Office Visit [facility] [address] [place] [address] Buffy De Souza MD [address] [place] [address] 01/12/2024 10:30 AM EDT Office Visit Sleep Disorders Ctr [facility] [address] [facility] [place] [phone] Tari Gardner CRNP 132 [facility] [place] [address] 03/19/2024 1:00 PM EST Office Visit Family [address] [phone] Gregory Goodson MD [address] [place] [address] [place] [address] Pending Results Name Type Priority Associated Diagnoses Date /Time INFLUENZA A/B RSV SARS-COV2,PCR Lab Routine Viral URI with cough 03/30/2023 10:35 AM EST Scheduled Orders Name Type Priority Associated Diagnoses Orde r Schedule INFLUENZA A/B RSV SARS-COV2,PCR Lab Routine Viral URI with cough Expected: 03/30/2023 (Approximate), Expires: 03/29/2024 Health Maintenance Due Date Last Done Comments [...] D LEVEL ONCE IN A LIFETIME-USE SMARTSET# [id number] Completed 01/20/2022, 04/04/2020, 03/23/2019, Additional history exists [...] this encounter Medical Devices Implanted Type Area Finishing Machine Operator Automatic Device Identifier Shelf Expiration Date Model / Serial / Lot Lens Intraoc 22.5 - [id number] - [id number] Implanted:Qty: 1 on 04/15/2022 by Armand Mallory MD at OR [facility] Right: Eye [employer] 12/25/2026 [id number] / [id number] / [id number] Lens Intraoc 22.5 - [id number] - [id number] Implanted:Qty: 1 on 04/22/2022 by Armand Mallory MD at OR [facility] Left: Eye [employer] 02/24/2027 [id number] / [id number] / [id number] documented as of this encounter Visit Diagnoses Diagnosis Viral URI with cough- Primary Acute upper respiratory infections of unspecified site Paroxysmal atrial fibrillation (HCC) Atrial fibrillation Typical atrial flutter (HCC) Atrial flutter HTN, goal below 150/90 documented in this encounter Advance Directives Latest Code Status on File Code Status Date Activated Date Inactivated Comments No Code 04/22/2022 8:35 AM 04/22/2022 2:59 PM This order reflects the patients wishes and were consensually agreed upon. Question Answer Comments Discussion of Advance Directives occurred with: Patient Does the patient have a Living Will? No Does the patient have Health Care Power of Mobile Qa Tester? No Code Status History Code Status Date Activated Date Inactivated Comments No Code 04/15/2022 7:59 AM 04/15/2022 2:36 PM This order reflects the patients wishes and were consensually agreed upon. Question Answer Comments Discussion of Advance Directives occurred with: Patient Does the patient have a Living Will? No Does the patient have Health Care Power of Mobile Qa Tester? No Full Code 03/04/2014 1:13 PM 03/05/2014 2:17 PM This order reflects the patients wishes and were consensually agreed upon. Healthcare Agents on File Name Relationship Healthcare Agent Relationshi p Communication Otterbein Rony Spouse Health Care Repr esentative (appointed verbally by patient or by statute hierarchy) Care Teams Television Journalist Relationship Specialty Start Date End Date Gregory Goodson MD [address] [place] [address] [place] [phone] PCP - General Family Medicine 10/23/13 documented as of this encounter
--- OUTSIDE RECORDS SUMMARY | 2023-05-09 04:41 | External Medical Summary ---
Author Name Unknown Address Unknown Organization : Laboratory Report Ordering Provider Test Date Status JUSTIN MONSIVAIS 04/04/2023 10:42:34 Final Therapeutic ranges for non-o perative patients:
Prophylaxsis/treatment of DVT: (Range:2.0-3.0)
Treatment of pulmonary embolism:(Range:2.0-3.0)
Prevention of systemic embolism from:
-tissue heart valves
-acute myocardial infarction
-valvular heart disease
-atrial fibrillation
(Range: 2.0-3.0)
Mechanical prosthetic valves: (Range: 2.5-3.5) Observation Date Value Abnormality Reference (Units ) Status INR in Capillary blood by Coagulation assay 04/04/2023 10:42:34 3.7 (INR) Final Performing Location
--- OUTSIDE RECORDS SUMMARY | 2023-05-09 04:41 | External Medical Summary | Summary of Care ---
Author Name Unknown Organization [facility] Address [address] [place] [address] Phone [phone] Care Team Providers Care Hand Tube Winder Name Role Phone Gregory Goodson MD Primary Care Provide r Reason for Visit * Reason Comments Follow Up Encounter Details Date Type Department Care Team ([facility] st Contact Info) Description 04/06/2023 1:00 PM EST Office Visit Family Medicine [address] [phone] Eva Jeong MD [address] [place] [place] [phone] RSV bronchiolitis*; Bronchitis, complicated Allergies Active Allergy Reactions Criticality Noted Date Comments Penicillins 04/04/2000 rash documented as of this encounter (statuses as of 04/06/2023) Medications Medication Sig Dispensed Refills Start Date [...] (Coumadin)Indicati ons:Paroxysmal atrial fibrillation (HCC),Anticoagulat ion management encounter,longterm current use of anticoagulant therapy TAKE 2 [...] as of this encounter (statuses as of 04/06/2023) Active Problems Problem Noted Date Diagnosed Date [...] as of this encounter (statuses as of 04/06/2023) Resolved Problems Problem Noted Date Diagnosed Date [...] BID then 100mg BID(uptitrated spring 2013) plus bkhz-gl-fsa-pocket Well controlled until 01/2014 Admission 01/30- for rapid AF-> changed to sotalol -> admission 02/05 -> changed to amiodarone AMiodarone 400mg QD 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 Menopause 01/29/2015 documented as of this encounter (statuses as of 04/06/2023) Immunizations Name Administration Dates Next Due COVID-19 [...] Date Smoking Tobacco: Never Smokeless Tobacco: Never Tobacco Cessation:Counseling Given: Not Answered Alcohol Use Standard Drinks/Week Comments No 0 [...] Sign Reading Time Taken Comments Blood Pressure 138/60 04/06/2023 12:59 PM EST Pulse 63 04/06/2023 12:59 PM EST Temperature 36.9 C (98.5 F) 04/06/2023 12:[address] Respiratory Rate - - Oxygen Saturation 97% 04/06/2023 12:59 PM EST Inhaled Oxygen Concentration - - Weight 70.1 kg (154 lb 9.6 oz) 04/06/2023 12:59 PM EST Height - - Body Mass Index 25.73 01/11/2023 3:32 PM EDT documented in this encounter Progress Notes * Yovany Delgadillo, Eva Smiley MD - 04/06/2023 12:48 PM EST Subjective Marissa Uribe is a 82 year old female. Chief Complaint Patient presents with Follow Up HPI: Follow up for acute RSV. Was seen 03/30/23 and nasal swab positive for RSV. Not improving. Cough is worse. Productive of green phlegm. Feels SOB at times. Poor appetite. PMH: Patient Active Problem List Diagnosis Code longterm current use of anticoagulant therapy Z79.01 HTN, [...] pathological fracture M81.0 Atrial flutter (HCC) I48.92 Current Outpatient Medications Medication Sig Dispense Refill [...] (Coumadin) TAKE 2 TABLETS BY MOUTH ON TUE, TUE, FRI, AND TAKE 1 TABLET ALL OTHER [...] No current facility-administered medications for this visit. Review of patient's allergies indicates: Allergen Reactions Penicillins rash Objective BP 138/60 | Pulse 63 | Temp 36.9 C (98.5 F) (Tympanic) | Wt 70.1 kg (154 lb 9.6 oz) | SpO2 97% | BMI 25.73 kg/m | BSA 1.79 m Physical Exam Constitutional: Appearance: Normal appearance. Cardiovascular: Rate and Rhythm: Normal rate and regular rhythm. Pulses: Normal pulses. Heart sounds: Normal heart sounds. Pulmonary: Effort: Pulmonary effort is normal. Breath sounds: Rhonchi present. Neurological: Mental Status: She is alert. ASSESSMENT/PLAN: RSV bronchiolitis (Primary) Bronchitis, complicated - Doxycycline Hyclate 100 MG Oral Capsule; Take 1 Capsule by mouth in the morning and 1 Capsule before bedtime. Do all this for 10 days. Until gone.. - Benzonatate 100 MG Oral Capsule; Take 1 Capsule by mouth 3 times a day as needed for Cough. Follow-up: Return if symptoms worsen or fail to improve. | Check-out note: Nursing phone call Tuesday to ask if she is improving Eva Rodrigez MD documented in this encounter Nursing Notes * Allie Sheikh LPN - 04/06/2023 12:59 PM EST Chief Complaint Patient presents with Follow Up 03/30/2023 RSV positive Concern Productive cough green mucus Tx: Coricidin HBP The patient has been properly identified by confirmation of name and date of . documented in this encounter Plan of Treatment Upcoming Encounters Date Type Department Care Team (Late st Contact Info) Description 04/08/2023 10:30 AM EST Nurse Only Ancillary Kushal Baker[address] [place] [address] Nurse Spencer Follow Up Phone Call Schedule [address] [place] [address] 04/12/2023 2:00 PM EST Anticoagulation Pharmacy, [address] [place] [address] [place] [address] 04/13/2023 10:00 AM EST Office Visit Cardiology, [facility] [place] [address] Bernardino Betancur, 132 [facility] [place] [address] 05/18/2023 9:00 AM EST Cardiac Studies Cardiology, [facility] 132 [facility] [place] [address] Mauro Mejiar [facility] 132 [facility] [place] [address] 05/31/2023 11:00 AM EST Office Visit Cardiology, [facility] [address] [facility] [place] [address] Aye Musa CRNP [address] [place] [address] [place] [phone] 09/19/2023 12:20 PM EDT Office Visit Family Medicine [address] [place] [phone] Ebony Noriega PA-C [address] [place] [address] [place] [address] 11/03/2023 10:45 AM EDT Office Visit Dermatology [facility] [address] [place] [address] Buffy De Souza MD [address] [place] [address] 01/12/2024 10:30 AM EDT Office Visit Sleep Disorders Ctr [facility] [address] [place] [phone] Tari Gardner CRNP [address] [place] [address] 03/19/2024 1:00 PM EST Office Visit [address] [place] [phone] Gregory Goodson MD [address] [place] [address] [place] [address] Health Maintenance Due Date Last Done Comments [...] D LEVEL ONCE IN A LIFETIME-USE SMARTSET# [id number] Completed 01/20/2022, 04/04/2020, 03/23/2019, Additional history exists [...] this encounter Medical Devices Implanted Type Area Motor Checker Device Identifier Shelf Expiration Date Model / Serial / Lot Lens Intraoc 22.5 - [id number] - [id number] Implanted:Qty: 1 on 04/15/2022 by Armand Mallory MD at OR [facility] Right: Eye [employer] 12/25/2026 [id number] / [id number] / [id number] Lens Intraoc 22.5 - [id number] - [id number] Implanted:Qty: 1 on 04/22/2022 by Armand Mallory MD at OR [facility] Left: Eye [employer] 02/24/2027 [id number] / [id number] / [id number] documented as of this encounter Visit Diagnoses Diagnosis RSV bronchiolitis- Primary Acute bronchiolitis due to respiratory syncytial virus (RSV) Bronchitis, complicated Bronchitis, not specified as acute or chronic documented in this encounter Additional Health Concerns [...] the patient have Health Care Power of Welt Butter Hand? No Code Status History Code Status Date Activated Date Inactivated Comments No Code 04/15/2022 7:59 AM 04/15/2022 2:36 PM This order reflects the patients wishes and were consensually agreed upon. Question Answer Comments Discussion of Advance Directives occurred with: Patient Does the patient have a Living Will? No Does the patient have Health Care Power of Welt Butter Hand? No Full Code 03/04/2014 1:13 PM 03/05/2014 2:17 PM This order reflects the patients wishes and were consensually agreed upon. Healthcare Agents on File Name Relationship Healthcare Agent Relationshi p Communication Edu Rony Spouse Health Care Repr esentative (appointed verbally by patient or by statute hierarchy) Care Teams Hand Tube Winder Relationship Specialty Start Date End Date Gregory Goodson MD [address] [place] [address] [place] [address] PCP - General Family Medicine 10/23/13 documented as of this encounter"
--- OUTSIDE RECORDS SUMMARY | 2023-05-09 04:41 | External Medical Summary | Summary of Care ---
Author Name Unknown Organization [facility] Address [address] [place] [address] Phone [phone] Care Team Providers Care Set Rider Name Role Phone Gregory Goodson MD Primary Care Provide r Reason for Visit * Reason Comments eRx-Medication Refill Encounter Details Date Type Department Care Team (Late st Contact Info) Description 04/06/2023 Refill Cardiology, [facility] [address] [facility] [place] [address] Demarco Suh PAUdayC [address] [place] [address] Paroxysmal atrial fibrillation (HCC) Allergies Active Allergy [...] 0 Active Spironolactone 25 MG Oral Tablet (Aldactone)Indica tions:HTN, goal below 140/90,Peripheral edema,Hypokalemia Take 1/2 (one-half) tablet by mouth once daily 45 Tablet 5 02/12/20 22 Active Additional Information Patient taking differently: Mon,Wed,Fri only, Reported on 06/22/2022 Pravastatin Sodium 40 MG Oral Tablet (Pravachol)Indica tions:Dyslipidemi a, goal LDL below 100 TAKE 1 TABLET BY MOUTH ONCE DAILY AT BEDTIME 90 Tablet 3 06/12/19 23 Active Warfarin Sodium 2.5 MG Oral Tablet (Coumadin)Indicat ions:Paroxysmal atrial fibrillation (HCC),Anticoagula tion management encounter,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 Menopause 01/29/2015 [...] encounter Miscellaneous Notes * Telephone Encounter - Alex Wright CRNP - 04/06/2023 12:22 PM EST Signed Prescriptions: Disp Refills Flecainide Acetate 100 MG Oral Tablet (Ricketts*180 Ta*3 Sig: Take 1 tablet by mouth twice daily Authorizing Provider: ALEX WRIGHT * Telephone Encounter - Guerita Hollis COT - 04/06/2023 11:46 AM ESTPending Prescriptions: Disp Refills Flecainide Acetate 100 MG Oral Tablet (Ricketts*180 Ta*3 Sig: Take 1 tablet by mouth twice daily * Telephone Encounter - Guerita Hollis SINDY Hunter - 04/06/2023 11:46 AM EST Did you pend patient's preferred pharmacy and medication before forwarding?yes Pharmacy: [facility] [address] [place] [address] [address] [facility] Pending Prescriptions: Disp Refills Flecainide Acetate 100 MG Oral Tablet (Ta*180 Ta*3 Sig: Take 1 tablet by mouth twice daily Last Visit: 12/24/2022 (in office), Visit date not found (telemedicine) Next Visit: 04/13/2023 If no future appointments scheduled, and last appointment is greater than a year ago, please schedule patient for a follow-up appointment Last date the medication was ordered: 04-07-2022 Is this request for a controlled substance?No [...] Care Team (Late st Contact Info) Description 04/06/2023 1:00 PM EST Office Visit Family Medicine [address] [place] [phone] Eva Jeong MD [address] [place] [address] [place] [address] Arrived 04/12/2023 2:00 PM EST Anticoagulation Pharmacy, [address] [place] [address] [place] [address] 04/13/2023 10:00 AM EST Office Visit Cardiology, [facility] [place] [address] Bernardino Betancur DO 132 [facility] [place] [address] 05/18/2023 9:00 AM EST Cardiac Studies Cardiology, [facility] 132 [facility] [place] [address] Dalila Me[facility] [place] [address] 05/31/2023 11:00 AM EST Office Visit Cardiology, [facility] 132 [facility] [place] [address] Alex Musa CRNP [address] [place] [address] [place] [phone] 09/19/2023 12:20 PM EDT Office Visit Family [address] [place] [phone] Ebony Noriega PA-C [address] [place] [address] [place] [address] 11/03/2023 10:45 AM EDT Office Visit Dermatology [facility] [address] [place] [address] Buffy De Souza MD [address] [facility] [place] [address] 01/12/2024 10:30 AM EDT Office Visit [facility] Disorders [facility] [address] [place] [phone] Tari Gardner CRNP [address] [place] [address] 03/19/2024 1:00 PM EST Office Visit Family Medicine [address] [place] [phone] Gregory Goodson MD [address] [place] [address] [place] [address] Health Maintenance Due Date Last Done Comments DTaP,Tdap,and Td Vaccines (1 - Tdap) 1959 COVID-19 Vaccine ( - 2022- season) 2022 03/17/2021, 07/23/2020, 06/18/2020 [...] D LEVEL ONCE IN A LIFETIME-USE SMARTSET# 60430 Completed 01/20/2022, 04/04/2020, 03/23/2019, Additional history exists [...] this encounter Medical Devices Implanted Type Area Construction Superintendent Device Identifier Shelf Expiration Date Model / Serial / Lot Lens Intraoc 22.5 - [id number] - [id number] Implanted:Qty: 1 on 04/15/2022 by Armand Mallory MD at OR [facility] Right: Eye [employer] 12/25/2026 [id number] / [id number] / [id number] Lens Intraoc 22.5 - [id number] - [id number] Implanted:Qty: 1 on 04/22/2022 by Armand Mallory MD at OR [facility] Left: Eye [employer]OMB 02/24/2027 [id number] / [id number] / [id number] documented as of this encounter Visit Diagnoses Diagnosis Paroxysmal atrial fibrillation (HCC) Atrial fibrillation documented in this encounter Additional [...] the patient have Health Care Power of Outside Operator? No Code Status History Code Status Date Activated Date Inactivated Comments No Code 04/15/2022 7:59 AM 04/15/2022 2:36 PM This order reflects the patients wishes and were consensually agreed upon. Question Answer Comments Discussion of Advance Directives occurred with: Patient Does the patient have a Living Will? No Does the patient have Health Care Power of Outside Operator? No Full Code 03/04/2014 1:13 PM 03/05/2014 2:17 PM This order reflects the patients wishes and were consensually agreed upon. Healthcare Agents on File Name Relationship Healthcare Agent Relationshi p Communication [place] Rony Spouse Health Care Repr esentative (appointed verbally by patient or by statute hierarchy) Care Teams Set Rider Relationship Specialty Start Date End Date Gregory Goodson MD [address] [place] [address] [place] [address] PCP - General Family Medicine 10/23/13 documented as of this encounter
--- OUTSIDE RECORDS SUMMARY | 2023-05-09 04:41 | External Medical Summary | Summary of Care ---
Author Name Unknown Organization [facility] Address [address] [place] [address] Phone [phone] Care Team Providers Care Technical Implementation Lead Name Role Phone Gregory Goodson MD Primary Care Provide r Reason for Visit * Reason Onset Date Comments Test Results 03/30/2023 +RSV Encounter Details Date Type Department Care Team ([facility] st Contact Info) Description 03/30/2023 Telephone Family Practice [facility] [address] [facility] [place] [address] Kenney Meier DO [facility] [place] [address] Test Results (+RSV) Allergies Active Allergy Reactions Criticality Noted Date [...] (Coumadin)Indicati ons:Paroxysmal atrial fibrillation (HCC),Anticoagulat ion management encounter,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 Discussed supportive measures at home along with medicine like Coricidan for her symptoms. Face to face time spent with Patient (minutes): 0 Total Time including non face to face (minutes): 10 documented in this encounter Plan of Treatment Upcoming Encounters Date Type Department Care Team (Late st Contact Info) Description 04/01/2023 1:30 PM EST Anticoagulation Pharmacy, [address] [place] [address] [place] [address] 04/13/2023 10:00 AM EST Office Visit Cardiology, [facility] [address] [place] [address] Bernardino Betancur, 132 [place] [address] 05/18/2023 9:00 AM EST Cardiac Studies Cardiology, [facility] [address] [place] [address] [place] [place] [address] 05/31/2023 11:00 AM EST Office Visit Cardiology, [facility] 132 [facility] [place] [address] Aye Musa CRNP [address] [place], [place] [address] [phone] 09/19/2023 12:20 PM EDT Office Visit Family [address] [phone] Ebony Noriega PA-C [address] [place] [address] [place] [address] 11/03/2023 10:45 AM EDT Office Visit Dermatology [facility] [address] [place] [address] Buffy De Souza MD 200 [facility] [place] [address] 01/12/2024 10:30 AM EDT Office Visit Sleep Disorders [facility] 132 [facility] [place] [phone] Tari Gardner CRNP 132 [facility] [place] [address] 03/19/2024 1:00 PM EST Office Visit Family [address] [place] [phone] Gregory Goodson MD [address] [place] [address] [place] [address] Health Maintenance Due Date Last Done Comments DTaP,Tdap,and Td Vaccines (1 - Tdap) 1959 COVID-19 Vaccine ( season) 2022 03/17/2021, 07/23/2020, 06/18/2020 *BISPHONATE OR [...] D LEVEL ONCE IN A LIFETIME-USE SMARTSET# [id number] Completed 01/20/2022, 04/04/2020, 03/23/2019, Additional history exists [...] this encounter Medical Devices Implanted Type Area Reducing System Operator Device Identifier Shelf Expiration Date Model / Serial / Lot Lens Intraoc 22.5 - [id number] - [id number] Implanted:Qty: 1 on 04/15/2022 by Armand Mallory MD at OR [facility] Right: Eye [employer] 12/25/2026 [id number] / [id number] / [id number] Lens Intraoc 22.5 - [id number] - [id number] Implanted:Qty: 1 on 04/22/2022 by Armand Mallory MD at OR [facility] Left: Eye [employer]OMB 02/24/2027 [id number] / [id number] / [id number] documented as of this encounter Additional Health [...] the patient have Health Care Power of Water Server? No Code Status History Code Status Date Activated Date Inactivated Comments No Code 04/15/2022 7:59 AM 04/15/2022 2:36 PM This order reflects the patients wishes and were consensually agreed upon. Question Answer Comments Discussion of Advance Directives occurred with: Patient Does the patient have a Living Will? No Does the patient have Health Care Power of Water Server? No Full Code 03/04/2014 1:13 PM 03/05/2014 2:17 PM This order reflects the patients wishes and were consensually agreed upon. Healthcare Agents on File Name Relationship Healthcare Agent Relationshi p Communication [place] Rony Spouse Health Care Repr esentative (appointed verbally by patient or by statute hierarchy) Care Teams Technical Implementation Lead Relationship Specialty Start Date End Date Gregory Goodson MD [address] [place] [address] [place] [address] PCP - General Family Medicine 10/23/13 documented as of this encounter
--- OUTSIDE RECORDS SUMMARY | 2023-05-09 04:41 | External Medical Summary | Summary of Care ---
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 1 04/03/2005 documented as of this encounter (statuses as of 04/04/2023) Resolved Problems Problem Noted Date Diagnosed Date [...] BID then 100mg BID(uptitrated spring 2013) plus ibpl-qa-qrt-pocket Well controlled until 01/2014 Admission 01/30- for rapid AF-> changed to sotalol -> admission 02/05 -> changed to amiodarone AMiodarone 400mg QD On warfarin long-term (DPARM2NLSA=XAC,YLD57-90,FEMALE=3) July 2013 Echo EF 60% mod LA enlargement 1+ MR, 1+ TR Pulmonary Vein Isolation (RF) 02/2014 AMiodarone discontinued 03/2014 for abdominal discomfort Abnormal mammogram 01/29/2003 9 BENIGN HYPERTENSION 02/01/20 09 Overview: Modified per HTN Taxonomy. Menopause 01/29/2015 documented as of this encounter (statuses as of 04/04/2023) Immunizations Name Administration Dates Next Due COVID-19 [...] Progress Notes * Aide Chaudhry RPh - 04/04/2023 10:39 AM EST Images from the original note were not included. Medication Therapy Disease Management - Anticoagulation Patient: Marissa Uribe | : 1940 Subjective Patient-Reported Symptoms: Patient Findings Positives: Change in health (Recent illness) Negatives: Signs/symptoms of thrombosis, Signs/symptoms of bleeding, Change in alcohol use, Change in activity, Upcoming invasive procedure, Missed doses, Extra doses, Change in medications, Change in diet/appetite, Bruising Objective Current Warfarin Dose As of 04/04/2023 Warfarin maintenance plan: 5 mg (2.5 mg x 2) every Mon; 2.5 mg (2.5 mg x 1) all other days INR Result As of 04/04/2023 INR goal: 2.0-3.0 INR used for dosin.7 (04/04/2023) Assessment & Plan Warfarin Plan As of 04/04/2023 Full warfarin instructions: 04/04: Hold; Otherwise 5 mg every Mon; 2.5 mg all other days Next INR check: 04/12/2023 Repeat PT/INR in 1 week(s) Weekly dose: not changed Additional Dosing Information: Patient admitted to [facility] 03/09 - 03/11 w/ atrial fibrillation. Underwent electrocardioversion. Reviewed plan to follow up with patient weekly x4 weeks. Expressed understanding. Post Cardioversion Week 4 Aide Chaudhry RPh Clinical Pharmacist 04/04/2023, 10:39 AM documented in this encounter Plan of Treatment Upcoming Encounters Date Type Department Care Team (Late st Contact Info) Description 04/06/2023 1:00 PM EST Office Visit Family Medicine [address] [place] [phone] Eva Jeong MD [address] [place] [address] [place] [address] 04/12/2023 2:00 PM EST Anticoagulation Pharmacy, [address] [place] [address] [place] [address] 04/13/2023 10:00 AM EST Office Visit Cardiology, [facility] [address] [place] [address] Bernardino Betancur DO [address] [place] [address] 05/18/2023 9:00 AM EST Cardiac Studies [facility]iology, [facility] [place] [address] Jackie Pacer [facility] [address] [place] [address] 05/31/2023 11:00 AM EST Office Visit Cardiology, [facility] [place] [address] Aye Musa CRNP [address] [place] [address] [place] [phone] 09/19/2023 12:20 PM EDT Office [address] [phone] Ebony Noriega PA-C [address] [place] [address] [place] [address] 11/03/2023 10:45 AM EDT Office Visit Dermatology [facility] [address] [place] [address] Buffy De Souza MD [address] [place] [address] 01/12/2024 10:30 AM EDT Office Visit Sleep Disorders Ctr [facility] [address] [place] [phone] Tari Gardner CRNP [address] [place] [address] 03/19/2024 1:00 PM EST Office Visit Family Medicine [address] [place] [phone] Gregory Goodson MD [address] [place] [address] [place] [address] Health Maintenance Due Date Last Done Comments [...] D LEVEL ONCE IN A LIFETIME-USE SMARTSET# [id number] Completed 01/20/2022, 04/04/2020, 03/23/2019, Additional history exists [...] this encounter Medical Devices Implanted Type Area Crab Meat Processor Device Identifier Shelf Expiration Date Model / Serial / Lot Lens Intraoc 22.5 - [id number] - [id number] Implanted:Qty: 1 on 04/15/2022 by Armand Mallory MD at OR [facility] Right: Eye [employer] 12/25/2026 [id number] / [id number] / [id number] Lens Intraoc 22.5 - [id number] - [id number] Implanted:Qty: 1 on 04/22/2022 by Armand Mallory MD at OR [facility] Left: Eye [employer]OMB 02/24/2027 [id number] / [id number] / [id number] documented as of this encounter Procedures Procedure Name Priority Date/Time Associated Diagnosis Comments INR FINGERSTICK, POINT OF CARE STAT 04/04/2023 10:42 AM EST Paroxysmal atrial fibrillation (HCC) 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 documented in this encounter Results * INR FINGERSTICK, POINT OF CARE (04/04/2023 10:42 AM EST) Fingerstick INR 3.7 INR 10:44 AM EST [facility] Blood 04/04/2023 10:4 2 AM EST 04/04/2023 10:44 AM EST Narrative [facility] - 04/04/2023 10:44 AM EST Therapeutic ranges for non-operative patients: Prophylaxsis/treatment of DVT: (Range:2.0-3.0) Treatment of pulmonary embolism:(Range:2.0-3.0) Prevention of systemic embolism from: -tissue heart valves -acute myocardial infarction -valvular heart disease -atrial fibrillation (Range: 2.0-3.0) Mechanical prosthetic valves: (Range: 2.5-3.5) Aide Aquino Darellmatilda [facility] POINT OF CARE TEST DOCKED DEVICE UNSOLICITED RESULTS [facility] [place] [address] documented in this encounter Visit Diagnoses Diagnosis Paroxysmal atrial fibrillation (HCC)- Primary Atrial fibrillation Anticoagulation management encounter 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 No Code Status History Code Status Date Activated Date Inactivated Comments No Code 04/15/2022 7:59 AM 04/15/2022 2:36 PM This order reflects the patients wishes and were consensually agreed upon. Question Answer Comments Discussion of Advance Directives occurred with: Patient Does the patient have a Living Will? No Does the patient have Health Care Power of C Consultant? No Full Code 03/04/2014 1:13 PM 03/05/2014 2:17 PM This order reflects the patients wishes and were consensually agreed upon. Healthcare Agents on File Name Relationship Healthcare Agent Relationshi p Communication [place] Rony Spouse Health Care Repr esentative (appointed verbally by patient or by statute hierarchy) Care Teams Online Trader Relationship Specialty Start Date End Date Gregory Goodson MD [address] [place] [address] [place] [phone] PCP - General Family Medicine 10/23/13 documented as of this encounter"
--- OUTSIDE RECORDS SUMMARY | 2023-05-09 04:41 | External Medical Summary | Summary of Care ---
Author Name Unknown Organization [facility] Address [address] [place] [address] Phone [phone] Care Team Providers Care Health Care Aide Name Role Phone Gregory Goodson MD Primary Care Provide r Reason for Visit * Reason Comments Outpatient Testing Encounter Details Date Type Department Care Team ([facility] st Contact Info) Description 04/13/2023 9:20 AM EST Laboratory Laboratory, [facility] [address] [place] [phone] [facility] [address] [place] [address] Paroxysmal atrial fibrillation (HCC); Anticoagulation management encounter; [facility] current use of anticoagulant therapy Allergies Active [...] (Coumadin)Indicati ons:Paroxysmal atrial fibrillation (HCC),Anticoagulat ion management encounter,[facility] current use of anticoagulant therapy TAKE 2 [...] 150/90 01/31/2009 Overview: Modified per HTN Taxonomy. [facility] current use of anticoagulant therapy 1 04/03/2005 [...] BID then 100mg BID(uptitrated spring 2013) plus snol-nm-hvs-pocket Well controlled until 01/2014 Admission 01/30- for rapid AF-> changed to sotalol -> admission 02/05 -> changed to amiodarone AMiodarone 400mg QD On warfarin emt intermediate ([id number],[id number],FEMALE=3) July 2013 Echo EF 60% mod LA [...] Description 04/13/2023 5:30 PM EST Anticoagulation Pharmacy, [address] [place] [address] [place] [address] 05/18/2023 9:00 AM EST Cardiac Studies Cardiology, [facility] [address] [facility] [place] [address] [place], Pac[facility] Clinic [facility] [address] [facility] [place] [address] 05/31/2023 11:00 AM EST Office Visit Cardiology, [facility] [address] [facility] [place] [address] Aye Musa CRNP [address] [place] [address] [place] [phone] 09/19/2023 12:20 PM EDT Office Visit Family [address] [phone] Ebony Noriega PA-C [address] [place] [address] [place] [address] 11/03/2023 10:45 AM EDT Office Visit Dermatology [facility] [address] [facility] [place] [address] Buffy De Souza MD [address] [facility] [place] [address] 01/12/2024 10:30 AM EDT Office Visit Sleep Disorders Ctr [facility] [address] [place] [phone] Tari Gardner CRNP [address] [place] [address] 03/19/2024 1:00 PM EST Office Visit [address] [place] [phone] Gregory Goodson MD [address] [place] [address] [place] [address] Pending Results Name Type Priority Associated Diagnoses Date /Time PT INR Lab Routine Paroxysmal atrial fibrillation (HCC) Anticoagulation management encounter [facility] current use of anticoagulant therapy 04/13/2023 10:05 AM EST Health Maintenance Due Date Last Done Comments DTaP,Tdap,and Td Vaccines (1 - Tdap) 1959 COVID-19 Vaccine (2022- season) 2022 03/17/2021, 07/23/2020, 06/18/2020 *BISPHONATE OR [...] D LEVEL ONCE IN A LIFETIME-USE SMARTSET# [id number] Completed 01/20/2022, 04/04/2020, 03/23/2019, Additional history exists [...] this encounter Medical Devices Implanted Type Area Machine Engineer Device Identifier Shelf Expiration Date Model / Serial / Lot Lens Intraoc 22.5 - [id number] - [id number] Implanted:Qty: 1 on 04/15/2022 by Armand Mallory MD at OR [facility] Right: Eye [employer] 12/25/2026 [id number] / [id number] / [id number] Lens Intraoc 22.5 - [id number] - [id number] Implanted:Qty: 1 on 04/22/2022 by Armand Mallory MD at OR [facility] Left: Eye [employer] 02/24/2027 [id number] / [id number] / [id number] documented as of this encounter Visit Diagnoses Diagnosis Paroxysmal atrial fibrillation (HCC) Atrial fibrillation Anticoagulation management encounter Encounter for therapeutic drug monitoring emt intermediate current use of anticoagulant therapy documented in [...] the patient have Health Care Power of Sheet Metal Former? No Code Status History Code Status Date Activated Date Inactivated Comments No Code 04/15/2022 7:59 AM 04/15/2022 2:36 PM This order reflects the patients wishes and were consensually agreed upon. Question Answer Comments Discussion of Advance Directives occurred with: Patient Does the patient have a Living Will? No Does the patient have Health Care Power of Sheet Metal Former? No Full Code 03/04/2014 1:13 PM 03/05/2014 2:17 PM This order reflects the patients wishes and were consensually agreed upon. Healthcare Agents on File Name Relationship Healthcare Agent Relationshi p Communication [place] Spouse Health Care Repr esentative (appointed verbally by patient or by statute hierarchy) Care Teams Health Care Aide Relationship Specialty Start Date End Date Gregory Goodson MD [address] [place] [address] [place] [address] PCP - General Family Medicine 10/23/13 documented as of this encounter
--- OUTSIDE RECORDS SUMMARY | 2023-05-09 04:41 | External Medical Summary | Summary of Care ---
Author Name Unknown Organization [facility] Address [address] [place] [address] Phone [phone] Care Team Providers Care Business Management Professor Name Role Phone Gregory Goodson MD Primary Care Provide r Reason for Visit * Reason Comments Dosage Adjustment In Person (Anticoag Cl inic) Encounter Details Date Type Department Care Team (Latest Contact Info) Description 03/25/2023 1:30 PM EST Anticoagulation Pharmacy, [address] [place] [address] [place] [address] Paroxysmal atrial fibrillation (HCC)*; Anticoagulation management encounter; longterm current use of anticoagulant therapy Allergies Active Allergy Reactions Criticality Noted Date Comments Penicillins 04/04/2000 rash documented as of this encounter (statuses as of 03/25/2023) Medications Medication Sig Dispensed Refills Start Date [...] as of this encounter (statuses as of 03/25/2023) Active Problems Problem Noted Date Diagnosed Date [...] 150/90 01/31/2009 Overview: Modified per HTN Taxonomy. 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 1 04/03/2005 documented as of this encounter (statuses as of 03/25/2023) Resolved Problems Problem Noted Date Diagnosed Date [...] BID then 100mg BID(uptitrated spring 2013) plus swbu-ar-hth-pocket Well controlled until 01/2014 Admission 01/30- for rapid AF-> changed to sotalol -> admission 02/05 -> changed to amiodarone AMiodarone 400mg QD On warfarin meterman ([id number],RBQ20-81,FEMALE=3) July 2013 Echo EF 60% mod LA enlargement 1+ MR, 1+ TR Pulmonary Vein Isolation (RF) 02/2014 AMiodarone discontinued 03/2014 for abdominal discomfort Abnormal mammogram 01/29/2003 9 BENIGN HYPERTENSION 02/01/20 09 Overview: Modified per HTN Taxonomy. Menopause 01/29/2015 documented as of this encounter (statuses as of 03/25/2023) Immunizations Name Administration Dates Next Due COVID-19 [...] Progress Notes * Aide Chaudhry RPh - 03/25/2023 1:30 PM EST Images from the original note [...] Bruising Objective Current Warfarin Dose As of 03/25/2023 Warfarin maintenance plan: 5 mg (2.5 mg x 2) every Mon; 2.5 mg (2.5 mg x 1) all other days INR Result As of 03/25/2023 INR goal: 2.0-3.0 INR used for dosin.1 (03/25/2023) Assessment & Plan Warfarin Plan As of 03/25/2023 Full warfarin instructions: 5 mg every Mon; 2.5 mg all other days No change documented: Aide Chaudhry RPh Next INR check: 04/01/2023 Repeat PT/INR in 1 week(s) Weekly dose: not changed Additional Dosing Information: Patient admitted to [facility] 03/09 - 03/11 w/ atrial fibrillation. Underwent electrocardioversion. Reviewed plan to follow up with patient weekly x4 weeks. Expressed understanding. Post Cardioversion Week 2 Aide Chaudhry RPh Clinical Pharmacist 03/25/2023, 1:30 PM documented in this encounter Plan of Treatment Upcoming Encounters Date Type Department Care Team (Late st Contact Info) Description 04/01/2023 1:30 PM EST Anticoagulation Pharmacy, [address] [place] [address] [place] [address] 04/13/2023 10:00 AM EST Office Visit [facility]iology, [facility] [place] [address] Bernardino Betancur DO 132 [facility] [place] [address] 05/18/2023 9:00 AM EST Cardiac Studies Cardiology, [facility] 132 [facility] [place] [address] [place], Pacer [facility] [address] [facility] [place] [address] 05/31/2023 11:00 AM EST Office Visit Cardiology, [facility] 132 [facility] [place] [address] Aye Musa CRNP [address] [place], [place] [address] [phone] 09/19/2023 12:20 PM EDT Office Visit Family Medicine [address] [place] [phone] Ebony Noriega PA-C [address] [place] [address] [place] [address] 11/03/2023 10:45 AM EDT Office Visit Dermatology [facility] [place] [address] Buffy Romero MD 200 [facility] [place] [address] 01/12/2024 10:30 AM EDT Office Visit Sleep Disorders Ctr [place] Self [place] [address] [place] [phone] Tari Gardner CRNP [address] [place] [address] 03/19/2024 1:00 PM EST Office Visit Family [address] [place] [phone] Gregory Goodson MD [address] [place] [address] [place] [address] Health Maintenance Due Date Last Done Comments [...] D LEVEL ONCE IN A LIFETIME-USE SMARTSET# [id number] Completed 01/20/2022, 04/04/2020, 03/23/2019, Additional history exists [...] this encounter Medical Devices Implanted Type Area Senior Net Developer Device Identifier Shelf Expiration Date Model / Serial / Lot Lens Intraoc 22.5 - [id number] - [id number] Implanted:Qty: 1 on 04/15/2022 by Armand Mallory MD at OR [facility] Right: Eye [employer] 12/25/2026 [id number] / [id number] / [id number] Lens Intraoc 22.5 - [id number] - [id number] Implanted:Qty: 1 on 04/22/2022 by Armand Mallory MD at OR [facility] Left: Eye [employer] 02/24/2027 [id number] / [id number] / [id number] documented as of this encounter Procedures Procedure Name Priority Date/Time Associated Diagnosis Comments INR FINGERSTICK, POINT OF CARE STAT 03/25/2023 1:35 PM EST Paroxysmal atrial fibrillation (HCC) 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 documented in this encounter Results * INR FINGERSTICK, POINT OF CARE (03/25/2023 1:35 PM EST) Fingerstick INR 3.1 INR 1:36 PM EST LABORATORY [employer]-00 Blood 03/25/2023 1:35 PM EST 03/25/2023 1:36 PM EST Narrative [facility] 55-00 - 03/25/2023 1:36 PM EST Therapeutic ranges for non-operative patients: Prophylaxsis/treatment of DVT: (Range:2.0-3.0) Treatment of pulmonary embolism:(Range:2.0-3.0) Prevention of systemic embolism from: -tissue heart valves -acute myocardial infarction -valvular heart disease -atrial fibrillation (Range: 2.0-3.0) Mechanical prosthetic valves: (Range: 2.5-3.5) Aide Chaudhry [facility] LAB POINT OF CARE TEST DOCKED DEVICE UNSOLICITED RESULTS LABORATORY [facility] 55-[address] [place] [address] [place] [address] documented in this encounter Visit Diagnoses Diagnosis Paroxysmal atrial fibrillation (HCC)- Primary Atrial fibrillation Anticoagulation management encounter Encounter for therapeutic drug monitoring longterm current use of anticoagulant therapy documented [...] the patient have Health Care Power of Utilization Supervisor? No Code Status History Code Status Date Activated Date Inactivated Comments No Code 04/15/2022 7:59 AM 04/15/2022 2:36 PM This order reflects the patients wishes and were consensually agreed upon. Question Answer Comments Discussion of Advance Directives occurred with: Patient Does the patient have a Living Will? No Does the patient have Health Care Power of Utilization Supervisor? No Full Code 03/04/2014 1:13 PM 03/05/2014 2:17 PM This order reflects the patients wishes and were consensually agreed upon. Healthcare Agents on File Name Relationship Healthcare Agent Relationshi p Communication [place] Spouse Health Care Repr esentative (appointed verbally by patient or by statute hierarchy) Care Teams Business Management Professor Relationship Specialty Start Date End Date Gregory Goodson MD [address] [place] [address] [place] [address] PCP - General Family Medicine 10/23/13 documented as of this encounter"
--- OUTSIDE RECORDS SUMMARY | 2023-05-09 04:41 | External Medical Summary | Summary of Care ---
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 Name Role Phone Gregory Goodson MD Primary Care Provide r Reason for Visit * Reason Onset Date Comments Hospital Follow-Up Hospital Follow-Up 03/18/2023 Encounter Details Date Type Department Care Team (Late st Contact Info) Description 03/18/2023 1:00 PM EST Office Visit Family Medicine [address] [phone] Gregory Goodson MD [address] [place] [address] [place] [address] Hospital discharge follow-up*; Atrial flutter, unspecified type (HCC); Paroxysmal atrial fibrillation (HCC); HTN, goal below 150/90; Tachy-syed syndrome (HCC); Cardiac pacemaker in situ; Gastroesophageal reflux disease, unspecified whether esophagitis present; Age-related osteoporosis without current pathological fracture Allergies Active Allergy Reactions Criticality Noted Date [...] 06/22/2022 Flecainide Acetate 100 MG Oral Tablet (Tambocor)Indicat ions:Paroxysmal atrial fibrillation (HCC) Take 1 tablet by mouth twice daily 180 Tablet 3 04/07/19 23 Active Pravastatin Sodium 40 MG Oral Tablet (Pravachol)Indica tions:Dyslipidemi a, goal LDL below 100 TAKE 1 TABLET BY MOUTH ONCE DAILY AT BEDTIME 90 Tablet 3 06/12/19 23 Active Warfarin Sodium 2.5 MG Oral Tablet (Coumadin)Indicat ions:Paroxysmal atrial fibrillation (HCC),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 0 03/18/20 23 Active Metoprolol Tartrate 50 MG Oral Tablet (Lopressor)Indica tions:Paroxysmal atrial fibrillation (HCC) Take 1 Tablet (50 mg) by mouth 2 times a day. 180 Tablet 3 02/16/20 22 023 Discontinued Lisinopril 10 MG Oral Tablet (Prinivil)Indicat ions:HTN, goal below 150/90 Take 1 Tablet by mouth in the morning and 1 Tablet before bedtime. 180 Tablet 3 08/26/19 23 023 Discontinued(Re fill) documented as of this encounter (statuses as [...] 150/90 01/31/2009 Overview: Modified per HTN Taxonomy. 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 ([id number]=[id number],FEMALE=3) July 2013 Echo EF 60% mod LA [...] Sign Reading Time Taken Comments Blood Pressure 116/64 03/18/2023 12:51 PM EST Pulse 74 03/18/2023 12:51 PM EST Temperature 36.3 C (97.3 F) 03/18/2023 12:[address] Respiratory Rate - - Oxygen Saturation 98% 03/18/2023 12:51 PM EST Inhaled Oxygen Concentration - - Weight 71.7 kg (158 lb) 03/18/2023 12:51 PM EST Height - - Body Mass Index 26.29 01/11/2023 3:32 PM EDT documented in this encounter Patient Instructions * Patient Instructions* Gregory Goodson MD - 03/18/2023 12:59 PM EST Taking Medicine Safely Medicine is given to help treat or prevent illness. But if you don't take it correctly, it might not help. It might even harm you. Your doctor or pharmacist can help you learn the right way to take your medicine. Listed below are some tips to help you take medicine safely. Safety Tips Have a routine for taking each medicine. Make it part of something you do each day, such as brushing your teeth or eating a meal. When you go to the hospital or your doctor's office, bring all your current medicines in their original boxes or bottles. If you can't do that, bring an up-to-date list of your medicines. Do not stop taking a prescription medicine unless your doctor tells you to. Doing so could make your condition worse. Do not share medicines. Let your doctor and pharmacist know of any allergies you have. Taking prescription medicines with alcohol, street drugs, herbs, supplements, or even some igdw-sxd-oaupmaa medicines can be harmful. Talk to your doctor or pharmacist before using any of these things while taking a prescription medicine. When filling your prescriptions, try using the same pharmacy for all your medicines. If not, let the pharmacist know what medicines you are already on. Keep medicines out of the reach of children and pets. Do not use medicine that has or that doesn't look or smell right. Get rid of it properly. To find out the right way to get rid of medicine: Call your [facility] or [facility]'s household trash and recycling service and ask if a drug take-back program is available in your community. Call your local pharmacy and ask the right way to get rid of the medicine. Go to http://www.fda.gov/ForConsumers/ConsumerUpdates/fvu090147 to learn how to get rid of medicines safely. Using Generic Medicines Medicines have brand names and generic (chemical) names. When a medicine is first made, it is sold only under its brand name. Later, it can be made and sold as a generic. Generic medicines cost less than brand-name medicines and most work just as well. Most people can use the generic medicine instead of the brand-name medicine, unless their doctor says otherwise. 3866-2444 [facility], [address] [place] [address], [place] [address]. All rights reserved. This information is not intended as a substitute for professional medical care. Always follow your healthcare professional's instructions. Coping with Your Diagnosis of a Chronic Health Condition If you have a chronic health condition, you have a problem that may not go away over time. Heart disease, asthma, arthritis, and diabetes are just a few of the chronic conditions that exist. Right now, these conditions have no known cure. But you can take an active role in managing your health. Coping with Your Diagnosis If you've just learned about your health condition, you may be angry, depressed, or afraid. Or you might feel relieved just to know what's wrong. Even if you've known about your health problem for a while, adjusting to it can be hard. But learning about your condition can help you cope. Look for books at your local library. If you have access to a computer, check the Internet. Or contact a group that focuses on your specific problem. Accepting Change Change is hard for most people. Yet right now you may be facing many changes. What you eat or the way you work may change. Your moods, and even your symptoms, might vary from day to day. Although it isn't easy, learning to accept change can help you feel more in control. Taking Control Feeling you have control can make living with your condition easier. Discuss treatment options withyour health care provider. The more you know, the more active you can be in your care. Moving Forward You may wonder whether you will be able to do the things you've always done. That depends on your age, the condition you have, and your goals. To make the most of each day, try to build caring relationships, be active, and eat right. Also, do your best to keep a sense of humor. 0981-9616 [facility], [address] [place] [address]. All rights reserved. This information is not intended as a substitute for professional medical care. Always follow your healthcare professional's instructions. Taking an Active Role in Your Medicines Take the time to learn about your medicine. For instance, why are you taking it? What does it do? Work with your doctor or other health care providers to get the answers you need. Talk to your pharmacist about how to take each medicine, and ask for a fact sheet on each one. Ask Questions About Your Medicine What is the name of the medicine? Why do I need to take it? When should I take it? How should I take it: with water? with food? on an empty stomach? How much do I take? What do I do if I miss a dose? What side effects could it cause and which ones should I call the doctor about? Are there any foods or medicines I should avoid while taking this medicine? Keeping track of your medications? Name of medicine: Taken for: Dose: Time(s) to take it: Take an Active Role Fill all your prescriptions at the same pharmacy. This keeps your medicine history in one place. Talk to the pharmacist. Make sure you understand how to take each medicine. Ask for a fact sheet about each one. Tell your doctor and pharmacist about all the prescription and xhpw-wvs-pjsgack medicines you take.This includes vitamins and herbal remedies. Tell your doctor and pharmacist if you have any medical conditions or allergies to any medicine or food, or if you are or . Keep a list of all your medicines. Use the sample to the right as a guide for the type of information needed. 9328-3119 [place] [address]. All rights reserved. This information is not intended as a substitute for professional medical care. Always follow your healthcare professional's instructions. documented in this encounter Progress Notes * Gregory Goodson MD - 03/18/2023 12:59 PM EST SUBJECTIVE: Marissa Uribe is a 82 year old female. Chief Complaint Patient presents with Hospital Follow-Up Hospital Follow-Up Recent Admission: Patient was recently admitted to [facility] on 03/09/23. The date of discharge was 03/11/23. Discharge report received and reviewed. HPI: Brief Clinical History Ms. Uribe is an 82 year old woman last seen in Family Medicine 5 months ago (09-30-22). She has h/o heart arrhythmia, Paroxysmal atrial fibrillation (HCC), and Tachy-syed syndrome (HCC). Admitted to [facility] 03/09/23-03/11/23 with palpitations and dizziness. Started while at a restaurant but had some heart racing the day before. Has h/o PAF on Coumadin and s/p ablation in 2013. Also has pacemaker for tachy-syed syndrome. In the ED, she was found to be in atrial fibrillation/flutter with RVR. She is anticoagulated on Coumadin and on flecainide. She was seen by cardiology, who felt she was in atrial fibrillation/flutter. Her metoprolol tartrate was discontinued and she was changed to metoprolol succinate 75 mg twice daily instead. Pacemaker was interrogated and was OK. She underwent cardioversion on 03/11/23. She was continued on flecainide. Her lisinopril was reduced to 2.5 mg. No other medication changes were made. Sugar was elevated to 196 while admitted. A1C was 5.4. She is scheduled for cardiology follow-up in mid March. She is to have BMP today per cardiology. Patient reports she is feeling well. No further palpitations since discharge. No chest pain or shortness of breath. Getting around well and does not have or feel she needs home health at this time. No problems with Coumadin. Patient Active Problem List Diagnosis Code retirement current use of anticoagulant therapy Z79.01 HTN, [...] taking differently: Mon,Wed,Fri only) 45 Tablet 5 Flecainide Acetate 100 MG Oral Tablet (Tambocor) Take 1 tablet by mouth twice daily 180 Tablet 3 Pravastatin Sodium 40 MG Oral Tablet (Pravachol) [...] the morning and 3 Tablets before bedtime. No current facility-administered medications for this visit. Current and discharge medications have been reconciled. Review of patient's allergies indicates: Allergen Reactions Penicillins rash OBJECTIVE: BP 116/64 | Pulse 74 | Temp 36.3 C (97.3 F) (Tympanic) | Wt 71.7 kg (158 lb) | SpO2 98% | BMI 26.29 kg/m | BSA 1.81 m Review Of Systems: Skin: pt denies, new or changing moles, pigmentation change, rash, scaling, itching, bruising, lumps or bumps, hair changes, nail changes Eyes: negative Ears/Nose/Throat: pt denies:, deafness, tinnitus, vertigo, frequent URI's, sinus trouble Respiratory: pt denies:, cough, sputum, pneumonia or bronchitis, asthma, wheezing, and dyspnea on exertion Cardiovascular: pt denies:, hypertension, chest pain, exertional chest pain or pressure, paroxysmalnocturnal dyspnea, lower extremity edema, and +palpitations as above Gastrointestinal: pt. denies:, abdominal pain, bloating or excess gas, dysphagia, nausea, blood in stool or black stools, constipation or change in bowel habits, diarrhea, +heartburn controlled with Lansoprazole. Genitourinary: pt denies:, nocturia, dysuria, and frequency Musculoskeletal: pt denies significant joint pain or stiffness Neurologic: pt denies:, headaches, syncope, and seizures Psychiatric: pt denies:, sleep disturbance, anxiety, nervousness, and depression Hematologic/Lymphatic/Immunologic: pt denies:, recurrent infections, immunodeficiency, anemia, bruising, bleeding disorder, fever, night sweats, chills, and weight loss Endocrine: pt denies:, thyroid disorder, cold intolerance, heat intolerance, and diabetes PHYSICAL EXAM: General: alert, healthy, no distress, well nourished, and well developed Head: Normocephalic, No masses, lesions, tenderness or abnormalities Eye Exam: PERRLA, extraocular movements intact, conjunctiva are pink and non- injected, sclera clear Ears: External ears normal, Canals clear, TM's Normal Nose: no mucosal erythema, no mucosal edema, no purulent discharge Oropharynx: no exudate, no erythema, lips, buccal mucosa, and tongue normal, and mucous membranes are moist Neck: supple, no adenopathy, no bruits Heart: regular rate & rhythm, no murmur, and no gallops Lungs: chest symmetric with normal AP diameter, no chest deformities noted, no chest wall tenderness, lungs clear to auscultation Extremities: no edema, no clubbing, no cyanosis Neuro Exam: alert & oriented x 3 with fluent speech, no focal motor/sensory deficits, gait normal ASSESSMENT: Hospital discharge follow-up (Primary) - DISCH MED RECON CUR MED LIS Atrial flutter, unspecified type (HCC)--new onset. S/p cardioversion. Already on Coumadin and flecainide. Metoprolol tartrate changed to metoprolol succinate 75 mg twice daily. Continued on flecainide. Heart regular today. Paroxysmal atrial fibrillation (HCC)--s/p ablation in 2013 and pacemaker for tachy-syed. Recurrentas above. Continue Coumadin and metoprolol. HTN, goal below 150/90--lisinopril reduced to 2.5 mg daily. Metoprolol changed as above. Tachy-syed syndrome (HCC)--pacemaker interrogated and functioning normally. Cardiac pacemaker in situ Gastroesophageal reflux disease, unspecified whether esophagitis present--continue lansoprazole. Had GI bleed in past when stopped. Age-related osteoporosis without current pathological fracture--no bisphosphonate due to severe GERD/GI bleed. Declines HIROC for injections. Follow Up: Return in about 6 months (around 09/17/2023) for Clinic Visit. | For: Clinic Visit | Check-out note: Cancel 04/04/23 appointment with me PLAN: Continue present medication(s): Schedule labs: BMP today as per cardiology Patient education: Discussed medication changes. Follow up as scheduled with cardiology and in 6 months for routine follow-up. I spent a total of 30-39 minutes (exact time 35 mins) minutes on the date of service in preparation, delivery, and documentation of the care provided to Marissa Uribe excluding any time spent in performance of separately billed services. Gregory Goodson MD documented in this encounter Nursing Notes * Sheryl Bowers LPN - 03/18/2023 12:50 PM EST Hospital follow up [facility] Feeling better since being home documented in this encounter Plan of Treatment Upcoming Encounters Date Type Department Care Team (Latest Contact Info) Description 03/18/2023 2:10 PM EST Anticoagulation Pharmacy, [address] [place] [address] [place] [address] Paroxysmal atrial fibrillation (HCC)*; Anticoagulation management encounter; retirement current use of anticoagulant therapy 03/25/2023 1:30 PM EST Anticoagulation Pharmacy, [address] [place] [address] [place] [address] 04/13/2023 10:00 AM EST Office Visit Cardiology, [facility] [address] [facility] [place] [address] Bernardino Betancur DO 132 [place] [address] 05/18/2023 9:00 AM EST Cardiac Studies Cardiology, [facility] [address] [facility] [place] [address] [place], Pacer [facility] [address] [facility] [place] [address] 05/31/2023 11:00 AM EST Office Visit Cardiology, [facility] [address] [facility] [place] [address] Aye Musa CRNP [address] [place], [place] [address] [phone] 09/19/2023 12:20 PM EDT Office Visit Family [address] [phone] Ebony Noriega PA-C [address] [place] [address] [place] [address] 11/03/2023 10:45 AM EDT Office Visit Dermatology [facility] [address] [place] [address] Buffy D eSouza MD [address] [facility] [place] [address] 01/12/2024 10:30 AM EDT Office Visit [facility] [phone] Tari Gardner CRNP [address] [facility] [place] [address] 03/19/2024 1:00 PM EST Office Visit Family [address] [phone] Gregory Goodson MD [address] [place] [address] [place] [address] Health Maintenance Due Date Last Done Comments DTaP,Tdap,and Td Vaccines (1 - Tdap) 1959 COVID-19 Vaccine (4 - season) 2022 03/17/2021, 07/23/2020, 06/18/2020 Depression Screening 10/01/2023 09/30/2022 GFR 10/01/2023 09/30/2022, 08/2022, 01/20/2022, Additional history exists DXA Scan 01/21/2024 01/20/2022, 12/27, 12/25/2019, Additional history exists Albumin/Creatinine Ratio 04/02/2025 04/02/2022, 01/27 Pneumococcal Vaccine: 65+ Years Completed 01/29/2015, 06/05/2007 Zoster Vaccines Completed 10/31/2019, 07/2019, 09/14/2014 VITAMIN D LEVEL ONCE IN A LIFETIME-USE SMARTSET# [id number] Completed 01/20/2022, 04/04/2020, 03/23/2019, Additional history exists [...] this encounter Medical Devices Implanted Type Area Sewer Pipe Layer Device Identifier Shelf Expiration Date Model / Serial / Lot Lens Intraoc 22.5 - [id number] - [id number] Implanted:Qty: 1 on 04/15/2022 by Armand Mallory MD at [facility] Right: Eye [employer] 12/25/2026 [id number] / [id number] / [id number] Lens Intraoc 22.5 - [id number] - [id number] Implanted:Qty: 1 on 04/22/2022 by Armand Mallory MD at OR [facility] Left: Eye [employer] 02/24/2027 [id number] / [id number] / [id number] documented as of this encounter Visit Diagnoses Diagnosis Hospital discharge follow-up- Primary Other follow-up examination Atrial flutter, unspecified type (HCC) Paroxysmal atrial fibrillation (HCC) Atrial fibrillation HTN, goal below 150/90 Tachy-syed syndrome (HCC) Sinoatrial node dysfunction Cardiac pacemaker in situ Gastroesophageal reflux disease, unspecified whether esophagitis present Age-related osteoporosis without current pathological fracture Senile osteoporosis Paroxysmal atrial fibrillation (HCC)- Primary Atrial fibrillation Anticoagulation management encounter 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 No Code Status History Code Status Date Activated Date Inactivated Comments No Code 04/15/2022 7:59 AM 04/15/2022 2:36 PM This order reflects the patients wishes and were consensually agreed upon. Question Answer Comments Discussion of Advance Directives occurred with: Patient Does the patient have a Living Will? No Does the patient have Health Care Power of Dean Of Graduate Studies? No Full Code 03/04/2014 1:13 PM 03/05/2014 2:17 PM This order reflects the patients wishes and were consensually agreed upon. Healthcare Agents on File Name Relationship Healthcare Agent Relationshi p Communication [place] Spouse Health Care Repr esentative (appointed verbally by patient or by statute hierarchy) Care Teams Railcar Mechanic Relationship Specialty Start Date End Date Gregory Goodson MD [address] [place] [address] [place] [address] PCP - General Family Medicine 10/23/13 documented as of this encounter"
--- OUTSIDE RECORDS SUMMARY | 2023-05-09 04:41 | External Medical Summary | Summary of Care ---
Author Name Unknown Organization [facility] Address [address] [place] [address] Phone [phone] Care Team Providers Care Professor Of Practice Name Role Phone Gregory Goodson MD Primary Care Provide r Reason for Visit * Reason Comments Update Encounter Details Date Type Department Care Team ([facility] st Contact Info) Description 04/08/2023 10:30 AM EST Nurse Only Ancillary [place] [place] [address] [place], Nurse Follow Up Phone Call Schedule [address] [place] [address] Update Allergies Active Allergy Reactions Criticality Noted Date Comments Penicillins 04/04/2000 rash documented as of this encounter (statuses as of 04/08/2023) Medications Medication Sig Dispensed Refills Start Date [...] (Coumadin)Indicati ons:Paroxysmal atrial fibrillation (HCC),Anticoagulat ion management encounter,FCI current use of anticoagulant therapy TAKE 2 [...] as of this encounter (statuses as of 04/08/2023) Active Problems Problem Noted Date Diagnosed Date [...] 01/31/2009 Overview: Modified per HTN Taxonomy. 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 Menopause 01/29/2015 documented as of this encounter (statuses as of 04/08/2023) Immunizations Name Administration Dates Next Due COVID-19 [...] on file documented as of this encounter Nursing Notes * Caitlin Rosario LPN - 04/08/2023 10:34 AM EST I spoke to pt today, to see how she is feeling. She said she is starting to feel better. She is notcoughing as much today. FYI. documented in this encounter Plan of Treatment Upcoming Encounters Date Type Department Care Team (Late st Contact Info) Description 04/12/2023 2:00 PM EST Anticoagulation Pharmacy, [address] [place] [address] [place] [address] 04/13/2023 10:00 AM EST [facility], [facility] [place] [address] Bernardino Betancur, 132 [place] [address] 05/18/2023 9:00 AM EST Cardiac Studies Cardiology, [facility] 132 [facility] [place] [address] [facility] 132 [facility] [place] [address] 05/31/2023 11:00 AM EST Office Visit Cardiology, [facility] 132 [facility] [place] [address] Aye Musa CRNP [address] [place] [address] 09/19/2023 12:20 PM EDT Office Visit Family [address] [phone] Ebony Noriega PA-C [address] [place] [address] [place] [address] 11/03/2023 10:45 AM EDT Office Visit Dermatology [facility] [place] [address] Buffy De Souza MD 200 [facility] [place] [address] 01/12/2024 10:30 AM EDT Office Visit Sleep Disorders Ctr [facility] 132 [facility] [place] [phone] Tari Gardner CRNP 132 [facility] [place] [address] 03/19/2024 1:00 PM EST Office Visit Family [address] [phone] Gregory Goodson MD [address] [place] [address] [place] [address] Health Maintenance Due Date Last Done Comments [...] D LEVEL ONCE IN A LIFETIME-USE SMARTSET# [id number] Completed 01/20/2022, 04/04/2020, 03/23/2019, Additional history exists [...] this encounter Medical Devices Implanted Type Area Manager Roofing Device Identifier Shelf Expiration Date Model / Serial / Lot Lens Intraoc 22.5 - [id number] - [id number] Implanted:Qty: 1 on 04/15/2022 by Armand Mallory [facility] at [facility] Right: Eye [employer] 12/25/2026 [id number] / [id number] / [id number] Lens Intraoc 22.5 - [id number] - [id number] Implanted:Qty: 1 on 04/22/2022 by Armand Mallory MD at [facility] Left: Eye [employer] 02/24/2027 [id number] / [id number] / [id number] documented as of this encounter Additional Health [...] the patient have Health Care Power of Him Tech? No Code Status History Code Status Date Activated Date Inactivated Comments No Code 04/15/2022 7:59 AM 04/15/2022 2:36 PM This order reflects the patients wishes and were consensually agreed upon. Question Answer Comments Discussion of Advance Directives occurred with: Patient Does the patient have a Living Will? No Does the patient have Health Care Power of Him Tech? No Full Code 03/04/2014 1:13 PM 03/05/2014 2:17 PM This order reflects the patients wishes and were consensually agreed upon. Healthcare Agents on File Name Relationship Healthcare Agent Relationshi p Communication [place] Rony Spouse Health Care Repr esentative (appointed verbally by patient or by statute hierarchy) Care Teams Professor Of Practice Relationship Specialty Start Date End Date Gregory Goodson MD [address] [place] [address] [place] [address] PCP - General Family Medicine 10/23/13 documented as of this encounter
--- OUTSIDE RECORDS SUMMARY | 2023-05-09 04:41 | External Medical Summary ---
Author Name Unknown Address Unknown Organization [id number]:LABORATORY [facility] [place] [address] [facility] [address] Laboratory Report Ordering Provider Test Date Status ADRIANA JOHNSON 03/18/2023 13:19:26 Final Observation Date Value Abnormality Reference (Units ) Status BUN 03/18/2023 13:19:26 17 6-20 (mg/dL) Final Creatinine 03/18/2023 13:19:26 1.1 Above high normal 0.5-1.0 (mg/dL) Final Glomerular filtration rate/1.73 sq M.predicted [Volume Rate/Area] in Serum, Plasma or Blood by Creatinine-based formula (CKD-EPI) 03/18/2023 13:19:26 49 Below low normal >=60 (mL/min) Final eGFR is calculated based on the CKD-EPI 2020 equation SODIUM 03/18/2023 13:19:26 141 135-146 (m mol/L) Final Potassium 03/18/2023 13:19:26 5.0 3.5-5.1 (m mol/L) Final Cl 03/18/2023 13:19:26 104 98-107 (mm ol/L) Final CO2 03/18/2023 13:19:26 27 22-32 (mmo l/L) Final Anion gap 03/18/2023 13:19:26 10 7-15 (mmol /L) Final Glucose 03/18/2023 13:19:26 98 70-120 (mg /dL) Final Calcium 03/18/2023 13:19:26 9.4 8.4-10.2 ( mg/dL) Final Performing Location LABORATORY [facility] [place] - [address] [facility] [address]
--- OUTSIDE RECORDS SUMMARY | 2023-05-09 04:41 | External Medical Summary ---
Author Name Unknown Address Unknown Organization K0G:LABORATORY [place] [facility] - [address] [place] [address] Laboratory Report Ordering Provider Test Date Status DALE YOO 03/30/2023 10:35:18 Final Observation Date Value Abnormality Reference (Units ) Status SARS Coronavirus 2 03/30/2023 10:35:18 Negative N egative Final No SARS-CoV2 Coronavirus RNA detected by PCR (amplified probe).
This express test was developed and its performance characteristics determined by [facility]. It has not been cleared or approved by the U.S. Food and Drug Administration (FDA). FDA does not require this test to go thru premarket FDA review. This test is used for clinical purposes. It should not be regarded as investigational or for research. This laboratory is certified under the Clinical Laboratory Improvement Amendments (CLIA) as qualified to perform high complexity clinical laboratory testing.

This test is a nucleic acid amplification test (NAAT), a reverse transcriptase polymerase chain reaction (RT-PCR) test, or a Centers for Disease Control-acceptable equivalent. The test is performed in a high complexity Clinical Laboratory Improvement Amendments-(CLIA) certified laboratory. The test is acceptable for SARS-CoV-2 diagnosis, surveillance, and travel within the [place] and to most countries. Please check with local testing authorities about requirements before travel.

The validation of bronchial specimens, tracheal aspirates, and sputum for this assay was developed and performance characteristics determined by [facility]. The validation of alternate specimen types has not been cleared or approved by the U.S. Food and Drug Administration (FDA). It has been determined that such clearance is not necessary. Influenza virus A RNA [Prese nce] in Specimen by [facility] with probe detection 03/30/2023 10:35:18 Negative Negative Final No Influenza A RNA detected by PCR (amplified probe) Influenza virus B RNA [Prese nce] in Specimen by [facility] with probe detection 03/30/2023 10:35:18 Negative Negative Final No Influenza B RNA detected by PCR (amplified probe) Respiratory syncytial virus RNA [Identifier] in Specimen by [facility] with probe detection 03/30/2023 10:35:18 Positive Abnormal Negative Final Respiratory Syncytial Virus RNA detected by PCR (amplified probe). Test results reported to [facility]. Performing Location LABORATORY [place] [facility] 0 - [address] [place] [address]
--- OUTSIDE RECORDS SUMMARY | 2023-05-09 04:41 | External Medical Summary | Summary of Care ---
Author Name Unknown Organization [facility] Address [address] [place] [address] Phone [phone] Care Team Providers Care Classification Control Clerk Name Role Phone Gregory Goodson MD Primary Care Provide r Reason for Visit * Reason Comments Dosage Adjustment In Person (Anticoag Cl inic) Encounter Details Date Type Department Care Team (Latest Contact Info) Description 03/18/2023 2:10 PM EST Anticoagulation Pharmacy, [address] [place] [address] [place] [address] Paroxysmal atrial fibrillation (HCC)*; Anticoagulation management encounter; snf current use of anticoagulant therapy Allergies Active [...] insufficiency 09/27/19 21 Nonrheumatic mitral valve regurgitation 07/02/20 21 Peripheral edema 09/26/2020 History of GI [...] 01/31/2009 Overview: Modified per HTN Taxonomy. 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 ([id number]=JOP,KKF24-67,FEMALE=3) July 2013 Echo EF 60% mod LA [...] Progress Notes * Aide Chaudhry RPh - 03/18/2023 1:32 PM EST Medication Therapy Disease Management - Anticoagulation Patient: Marissa Uribe | : 1940 Subjective Patient-Reported Symptoms: Patient Findings Positives: Hospital admission Negatives: Signs/symptoms of thrombosis, Signs/symptoms of bleeding, Change in health, Change in alcohol use, Change in activity, Upcoming invasive procedure, Missed doses, Extra doses, Change in medications, Change in diet/appetite, Bruising Objective Current Warfarin Dose As of 03/18/2023 Warfarin maintenance plan: 5 mg (2.5 mg x 2) every Mon; 2.5 mg (2.5 mg x 1) all other days INR Result As of 03/18/2023 INR goal: 2.0-3.0 INR used for dosin.9 (03/18/2023) Assessment & Plan Warfarin Plan As of 03/18/2023 Full warfarin instructions: 5 mg every Mon; 2.5 mg all other days No change documented: Aide Chaudhry RPh Next INR check: 03/25/2023 Repeat PT/INR in 1 week(s) Weekly dose: not changed Additional Dosing Information: Patient admitted to [facility] 03/09 - 03/11 w/ atrial fibrillation. Underwent electrocardioversion. Reviewed plan to follow up with patient weekly x4 weeks. Expressed understanding. Post Cardioversion Week 1 Aide Chaudhry RPh Clinical Pharmacist 03/18/2023, 1:32 PM documented in this encounter Plan of Treatment Upcoming Encounters Date Type Department Care Team (Late st Contact Info) Description 03/25/2023 1:30 PM EST Anticoagulation Pharmacy, [address] [place] [address] [place] [address] 04/13/2023 10:00 AM EST Office Visit Cardiology, [facility] 132 [facility] [place] [address] Bernardino Betancur, 132 [facility] [place] [address] 05/18/2023 9:00 AM EST Cardiac Studies Cardiology, [facility] 132 [facility] [place] [address] Jackie Pacer [facility] 132 [facility] [place] [address] 05/31/2023 11:00 AM EST Office Visit Cardiology, [facility] 132 [facility] [place] [address] Aye Musa CRNP [facility] [phone] 09/19/2023 12:20 PM EDT Office Visit Family Medicine [address] [place] [phone] Ebony Noriega PA-C [address] [place] [address] [place] [address] 11/03/2023 10:45 AM EDT Office Visit Dermatology [facility] [address] [place] [address] Buffy De Souza MD [address] [place] [address] 01/12/2024 10:30 AM EDT [facility] [place] [address] [place] [phone] Tari Gardner CRNP [address] [place] [address] 03/19/2024 1:00 PM EST Office Visit Family Medicine [address] [place] [phone] Gregory Goodson MD [address] [place] [address] [place] [address] Health Maintenance Due Date Last Done Comments [...] D LEVEL ONCE IN A LIFETIME-USE SMARTSET# [id number] Completed 01/20/2022, 04/04/2020, 03/23/2019, Additional history exists [...] this encounter Medical Devices Implanted Type Area Smoke Chaser Device Identifier Shelf Expiration Date Model / Serial / Lot Lens Intraoc 22.5 - [id number] - [id number] Implanted:Qty: 1 on 04/15/2022 by Armand Mallory MD at [facility] Right: Eye [employer] 12/25/2026 [id number] / [id number] / [id number] Lens Intraoc 22.5 - [id number] - [id number] Implanted:Qty: 1 on 04/22/2022 by Armand Mallory MD at [place] [facility] Left: Eye [employer] 02/24/2027 [id number] / [id number] / [id number] documented as of this encounter Procedures Procedure Name Priority Date/Time Associated Diagnosis Comments INR FINGERSTICK, POINT OF CARE STAT 03/18/2023 1:37 PM EST Paroxysmal atrial fibrillation (HCC) 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 documented in this encounter Results * INR FINGERSTICK, POINT OF CARE (03/18/2023 1:37 PM EST) Fingerstick INR 2.9 INR 1:38 PM EST LABORATORY [facility] Blood 03/18/2023 1:37 PM EST 03/18/2023 1:38 PM EST Narrative LABORATORY [place] [facility] - 03/18/2023 1:38 PM EST Therapeutic ranges for non-operative patients: Prophylaxsis/treatment of DVT: (Range:2.0-3.0) Treatment of pulmonary embolism:(Range:2.0-3.0) Prevention of systemic embolism from: -tissue heart valves -acute myocardial infarction -valvular heart disease -atrial fibrillation (Range: 2.0-3.0) Mechanical prosthetic valves: (Range: 2.5-3.5) Aide Chaudhry h LAB POINT OF CARE TEST DOCKED DEVICE UNSOLICITED RESULTS [facility] [address] [place] [address] [place] [address] documented in this encounter Visit Diagnoses Diagnosis Paroxysmal atrial fibrillation (HCC)- Primary Atrial fibrillation Anticoagulation management encounter Encounter for therapeutic drug monitoring snf current use of anticoagulant therapy documented in [...] the patient have Health Care Power of Motorcycle Maker? No Code Status History Code Status Date Activated Date Inactivated Comments No Code 04/15/2022 7:59 AM 04/15/2022 2:36 PM This order reflects the patients wishes and were consensually agreed upon. Question Answer Comments Discussion of Advance Directives occurred with: Patient Does the patient have a Living Will? No Does the patient have Health Care Power of Motorcycle Maker? No Full Code 03/04/2014 1:13 PM 03/05/2014 2:17 PM This order reflects the patients wishes and were consensually agreed upon. Healthcare Agents on File Name Relationship Healthcare Agent Relationshi p Communication [place] Rony Spouse Health Care Repr esentative (appointed verbally by patient or by statute hierarchy) Care Teams Classification Control Clerk Relationship Specialty Start Date End Date Gregory Goodson MD [address] [place] [address] [place] [address] PCP - General Family Medicine 10/23/13 documented as of this encounter"
--- OUTSIDE RECORDS SUMMARY | 2023-05-09 04:41 | External Medical Summary ---
Author Name Unknown Address Unknown Organization K0G[facility] [address] [place] [address] Laboratory Report Ordering Provider Test Date Status JUSTIN MONSIVAIS 04/13/2023 10:05:47 Final Warfarin Therapy
INR: 2 .0-3.0 conventional anticoagulation
INR: 2.5- 3.5 high intensity anticoagulation Observation Date Value Abnormality Reference (Units ) Status PT 04/13/2023 10:05:47 39.1 Above high normal 11 .6-15.2 (seconds) Final INR 04/13/2023 10:05:47 3.9 Above high normal 0. 8-1.2 Final Performing Location [facility] - [address] [place] [address]
--- OUTSIDE RECORDS SUMMARY | 2023-05-09 04:42 | External Medical Summary | Summary of Care ---
Author Name Unknown Organization [facility] Address [address] [place] [address] Phone [phone] Care Team Providers Care Membership Manager Name Role Phone Gregory Goodson MD Primary Care Provide r Reason for Visit * Reason Onset Date Comments Appointment 03/10/2023 Encounter Details Date Type Department Care Team ([facility] st Contact Info) Description 03/10/2023 Telephone Cardiology, [facility] [address] [place] [address] Aye Lara CRNP [address] [place] [address] Appointment Allergies Active Allergy Reactions Criticality Noted Date Comments Penicillins 04/04/2000 rash documented as of this encounter (statuses as of 03/10/2023) Medications Medication Sig Dispensed Refills Start Date [...] taking differently: Mon,Wed,Fri only, Reported on 06/22/2022 Metoprolol Tartrate 50 MG Oral Tablet (Lopressor)Indicat ions:Paroxysmal atrial fibrillation (HCC) Take 1 Tablet (50 mg) by mouth 2 times a day. 180 Tablet 3 02/15/2022 Active Flecainide Acetate 100 MG Oral Tablet (Tambocor)Indicati ons:Paroxysmal atrial fibrillation (HCC) Take 1 tablet by mouth twice daily 180 Tablet 3 04/07/2022 Active Pravastatin Sodium 40 MG Oral Tablet (Pravachol)Indicat ions:Dyslipidemia, goal LDL below 100 TAKE 1 TABLET BY MOUTH ONCE DAILY AT BEDTIME 90 Tablet 3 06/11/2022 Active Lisinopril 10 MG Oral Tablet (Prinivil)Indicati ons:HTN, goal below 150/90 Take 1 Tablet by mouth in the morning and 1 Tablet before bedtime. 180 Tablet 3 08/25/2022 Active Klor-Con M10 10 MEQ Oral Tablet Extended ReleaseIndications :HTN, goal below 150/90 Take 1 tablet by mouth once daily 90 Tablet 3 09/16/2022 Active Warfarin Sodium 2.5 MG Oral Tablet (Coumadin)Indicati ons:Paroxysmal atrial fibrillation (HCC),Anticoagulat ion management encounter,detention current use of anticoagulant therapy TAKE 2 [...] BEFORE BREAKFAST 90 Capsule 1 01/20/2023 Active documented as of this encounter (statuses as of 03/10/2023) Active Problems Problem Noted Date Diagnosed Date Age-related osteoporosis wit hout current pathological fracture [...] 150/90 01/31/2009 Overview: Modified per HTN Taxonomy. 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 Menopause 01/29/2015 documented as of this encounter (statuses as of 03/10/2023) Immunizations Name Administration Dates Next Due COVID-19 [...] Split, I IV3, With Preserve, Inj 12/28/2014,12/06/2013,12/04/2012,01/07,12/09/2011,12/18/2010,12/09/2009 ,01/02/2009,12/27/2007,02/26/2003 Seasonal Influenza, Trivalen t, High Dose, No [...] encounter Miscellaneous Notes * Telephone Encounter - Vivian Johnson OSA - 03/10/2023 11:07 AM EST HD scheduled 04/13 ! 10:[address] Betancur. This was the only opening I could find in the requested timeframe. * Telephone Encounter - Aye Lara CRNP - 03/10/2023 9:34 AM EST Yes, was evaluated by the undersigned or SUPRIYA Diallo inpatient. SUPRIYA Corrales * Telephone Encounter - Vivian Johnson OSA - 03/10/2023 9:31 AM EST Demarco's first 60 minute opening is May 20. Okay to schedule with another provider? * Telephone Encounter - Aye Lara CRNP - 03/10/2023 8:49 AM EST Patient admitted to [facility] on 03/09. Anticipate Discharge within the next 24 to 48 hours. Scheduling: Please assist with [facility] follow-up within the next 4 weeks. Patient has followed with Demarco Suh PA-C in the past. Requesting follow up with Demarco. Please allow 60 minutes for this appointment and label appt [facility]. BMP in 1 week. Cards progress note 03/10/2023: 82 yo woman presenting with aflutter/fib On chronic coumadin sans major bleeding LVEF 60-65% MR - mild to moderate; no Plans: Patient is S/P Cardioversion on 03/10/2023 Continue Coumadin Goal INR 2-3 Current INR 2.4 - has been therapeutic since 08/2022 K+ goal 4.5-5 (@ goal) Kdur 10 meq po per day Mag goal >2 TSH - 1.2 ECHOcardiogram - Pending Pt appears euvolemic Lopressor 50 mg po TID (STOP) Start Toprol 75 mg po BID Restart Lisinopril 2.5 mg po per day - to start at Home Consider follow up with [facility] EP evaluation for possible repeat Afib/flutter Ablation. [facility] Please call back with any additional questions -Seen By Dr. Pankaj Arreaga documented in this encounter Plan of Treatment Upcoming Encounters Date Type Department Care Team (Late st Contact Info) Description 03/16/2023 11:10 AM EST Anticoagulation Pharmacy, [address] [place] [address] [place] [address] 04/04/2023 2:00 PM EST Office Visit Family Medicine [address] [place] [phone] Gregory Goodson MD [address] [place] [address] [place] [address] 04/13/2023 10:00 AM EST Office Visit Cardiology, [facility] [address] [place] [address] Bernardino Betancur DO [address] [place] [address] 05/18/2023 9:00 AM EST Cardiac Studies Cardiology, [facility] [address] [facility] [place] [address] [facility] 132 [facility] [place] [address] 05/31/2023 11:00 AM EST Office Visit Cardiology, [facility] [address] [facility] [place] [address] Aye Musa CRNP [address] [place] [phone] 11/03/2023 10:45 AM EDT Office Visit Dermatology [facility] [address] [facility] [place] [address] Buffy De Souza MD [address] [facility] [place] [address] 01/12/2024 10:30 AM EDT Office Visit Sleep Disorders Ctr [facility] 132 [facility] [place] [phone] Tari Gardner CRNP 132 [facility] [place] [address] Scheduled Orders Name Type Priority Associated Diagnoses Orde r Schedule BASIC METABOLIC PANEL Lab Routine Paroxysmal atrial fibrillation (HCC) Expected: 03/17/2023, Expires: 03/10/2024 Health Maintenance Due Date Last Done Comments DTaP,Tdap,and Td Vaccines (1 - Tdap) 1959 COVID-19 Vaccine ( - season) 2022 03/17/2021, 07/23/2020, 06/18/2020 Depression Screening 10/01/2023 09/30/2022 GFR 10/01/2023 09/30/2022, 01/0 08/2022, 01/20/2022, Additional history exists DXA Scan 01/21/2024 01/20/2022, 12/27, 12/25/2019, Additional history exists Albumin/Creatinine Ratio 04/02/2025 04/02/2022, 01/27 Pneumococcal Vaccine: 65+ Years Completed 01/29/2015, 06/05/2007 Zoster Vaccines Completed 10/31/2019, 07/2019, 09/14/2014 VITAMIN D LEVEL ONCE IN A LIFETIME-USE SMARTSET# [id number] Completed 01/20/2022, 04/04/2020, 03/23/2019, Additional history exists [...] this encounter Medical Devices Implanted Type Area Rn Telephonic Device Identifier Shelf Expiration Date Model / Serial / Lot Lens Intraoc 22.5 - [id number] - [id number] Implanted:Qty: 1 on 04/15/2022 by Armand Mallory MD at OR [facility] Right: Eye [employer] 12/25/2026 [id number] / [id number] / [id number] Lens Intraoc 22.5 - [id number] - [id number] Implanted:Qty: 1 on 04/22/2022 by Armand Mallory MD at OR [facility] Left: Eye [employer]OM[employer] 02/24/2027 [id number] / [id number] / [id number] documented as of this encounter Visit Diagnoses Diagnosis Paroxysmal atrial fibrillation (HCC)- Primary Atrial fibrillation documented in this encounter Advance [...] the patient have Health Care Power of Nutrition Professor? No Code Status History Code Status Date Activated Date Inactivated Comments No Code 04/15/2022 7:59 AM 04/15/2022 2:36 PM This order reflects the patients wishes and were consensually agreed upon. Question Answer Comments Discussion of Advance Directives occurred with: Patient Does the patient have a Living Will? No Does the patient have Health Care Power of Nutrition Professor? No Full Code 03/04/2014 1:13 PM 03/05/2014 2:17 PM This order reflects the patients wishes and were consensually agreed upon. Healthcare Agents on File Name Relationship Healthcare Agent Relationshi p Communication [place] Rony Spouse Health Care Repr esentative (appointed verbally by patient or by statute hierarchy) Care Teams Membership Manager Relationship Specialty Start Date End Date Gregory Goodson MD [address] [place] [address] [place] [address] PCP - General Family Medicine 10/23/13 documented as of this encounter
--- OUTSIDE RECORDS SUMMARY | 2023-05-09 04:42 | External Medical Summary | Summary of Care ---
Author Name Unknown Organization [facility] Address [address] [place] [address] Phone [phone] Care Team Providers Care Dairy Nutrition Specialist Name Role Phone Gregory Goodson MD Primary Care Provide r Reason for Visit * Reason Onset Date Comments Appointment 03/10/2023 Encounter Details Date Type Department Care Team ([facility] st Contact Info) Description 03/10/2023 Telephone Cardiology, 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 Anticipate Discharge within the next 24 to 48 hours. Scheduling: Please assist with [facility] follow-up within the next 4 weeks. Patient has followed with Demarco Suh PA-C in the past. Requesting follow up with Demarco. Please allow 60 minutes for this appointment and label appt [facility]. BMP in 1 week. Cards progress [...] possible repeat Afib/flutter Ablation. Follow up with [facility] Please call back with any additional questions -Seen By Dr. Pankaj Arreaga documented in this encounter Plan of Treatment Upcoming Encounters Date Type Department Care Team (Late st Contact Info) Description 03/16/2023 11:10 AM EST Anticoagulation Pharmacy, [address] [place] [address] [place] [address] 04/04/2023 2:00 PM EST Office Visit Family Medicine [address] [place] [phone] Gregory Goodson MD [address] [place] [address] [place] [address] 05/18/2023 9:00 AM EST Cardiac Studies Cardiology, [address] [place] [address] [place], Pacer [address] [place] [address] 05/31/2023 11:00 AM EST Office Visit Cardiology, [facility] 132 [facility] [place] [address] Aye Musa CRNP [address] [place] [address] [place] [phone] 11/03/2023 10:45 AM EDT Office Visit Dermatology [facility] [place] [place] [address] [facility] [place] [address] Buffy De Souza MD [address] [facility] [place] [address] 01/12/2024 10:30 AM EDT Office Visit [facility] Disorders Ctr [facility] [place] [facility] [place] [phone] Tari Gardner CRNP [address] [place] [address] Scheduled Orders Name Type Priority Associated Diagnoses [...] D LEVEL ONCE IN A LIFETIME-USE SMARTSET# [id number] Completed 01/20/2022, 04/04/2020, 03/23/2019, Additional history exists [...] this encounter Medical Devices Implanted Type Area Production Team Member Device Identifier Shelf Expiration Date Model / Serial / Lot Lens Intraoc 22.5 - [id number] - [id number] Implanted:Qty: 1 on 04/15/2022 by Armand Mallory MD at OR [facility] Right: Eye [employer] 12/25/2026 [id number] / [id number] / [id number] Lens Intraoc 22.5 - [id number] - [id number] Implanted:Qty: 1 on 04/22/2022 by Armand Mallory MD at OR [facility] Left: Eye [employer]OM[employer] 02/24/2027 [id number] / [id number] / [id number] documented as of this encounter Visit Diagnoses [...] the patient have Health Care Power of Soft Sugar Cutter? No Code Status History Code Status Date Activated Date Inactivated Comments No Code 04/15/2022 7:59 AM 04/15/2022 2:36 PM This order reflects the patients wishes and were consensually agreed upon. Question Answer Comments Discussion of Advance Directives occurred with: Patient Does the patient have a Living Will? No Does the patient have Health Care Power of Soft Sugar Cutter? No Full Code 03/04/2014 1:13 PM 03/05/2014 2:17 PM This order reflects the patients wishes and were consensually agreed upon. Healthcare Agents on File Name Relationship Healthcare Agent Relationshi p Communication [place] Rony Spouse Health Care Repr esentative (appointed verbally by patient or by statute hierarchy) Care Teams Dairy Nutrition Specialist Relationship Specialty Start Date End Date Gregory Goodson MD [address] [place] [address] [place] [phone] PCP - General Family Medicine 10/23/13 documented as of this encounter
--- OUTSIDE RECORDS SUMMARY | 2023-05-09 04:42 | External Medical Summary | Summary of Care ---
Author Name Unknown Organization [facility] Address [address] [place] [address] Phone [phone] Care Team Providers Care Study Specialist Name Role Phone Gregory Goodson MD Primary Care Provide r Reason for Visit * Reason Onset Date Comments Appointment 03/10/2023 Encounter Details Date Type Department Care Team ([facility] st Contact Info) Description 03/10/2023 Telephone Cardiology, [facility] [address] [place] [address] Aye Lara CRNP [address] [place] [address] Appointment Allergies Active Allergy Reactions Criticality Noted [...] BID then 100mg BID(uptitrated spring 2013) plus nxkq-be-gjo-pocket Well controlled until 01/2014 Admission 01/30- for rapid AF-> changed to sotalol -> admission 02/05 -> changed to amiodarone AMiodarone 400mg QD 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 Anticipate Discharge within the next 24 to 48 hours. Scheduling: Please assist with [facility] follow-up within the next 4 weeks. Patient has followed with Demarco Suh PA-C in the past. Requesting follow up with Demarco. Please allow 60 minutes for this appointment and label appt [facility]. BMP in 1 week. Cards progress note [...] Description 03/16/2023 11:10 AM EST Anticoagulation Pharmacy, [address] [place] [address] [place] [address] 04/04/2023 2:00 PM EST Office Visit Family Medicine [address] [place] [phone] Gregory Goodson MD [address] [place] [address] [place] [address] 05/18/2023 9:00 AM EST Cardiac Studies Cardiology, [address] [place] [address] [place], Pacer [address] [place] [address] 05/31/2023 11:00 AM EST Office Visit Cardiology, [facility] 132 [facility] [place] [address] Aye Musa CRNP [address] [place] [address] [place] [phone] 11/03/2023 10:45 AM EDT Office Visit Dermatology [place] [place] [address] [facility] [place] [address] Buffy De Souza MD [address] [place] [address] 01/12/2024 10:30 AM EDT Office Visit Sleep Disorders Ctr Erin Self [place] [facility] [place] [phone] Tari Gardner CRNP [address] [place] [address] Scheduled Orders Name Type Priority Associated Diagnoses [...] D LEVEL ONCE IN A LIFETIME-USE SMARTSET# [id number] Completed 01/20/2022, 04/04/2020, 03/23/2019, Additional history exists [...] this encounter Medical Devices Implanted Type Area Mechanic Marine Engine Device Identifier Shelf Expiration Date Model / Serial / Lot Lens Intraoc 22.5 - [id number] - [id number] Implanted:Qty: 1 on 04/15/2022 by Armand Mallory MD at OR [facility] Right: Eye [employer] 12/25/2026 [id number] / [id number] / [id number] Lens Intraoc 22.5 - [id number] - [id number] Implanted:Qty: 1 on 04/22/2022 by Armand Mallory MD at OR [facility] Left: Eye [employer]OM[employer] 02/24/2027 [id number] / [id number] / [id number] documented as of this encounter Visit Diagnoses [...] the patient have Health Care Power of Tooth Grinder? No Code Status History Code Status Date Activated Date Inactivated Comments No Code 04/15/2022 7:59 AM 04/15/2022 2:36 PM This order reflects the patients wishes and were consensually agreed upon. Question Answer Comments Discussion of Advance Directives occurred with: Patient Does the patient have a Living Will? No Does the patient have Health Care Power of Tooth Grinder? No Full Code 03/04/2014 1:13 PM 03/05/2014 2:17 PM This order reflects the patients wishes and were consensually agreed upon. Healthcare Agents on File Name Relationship Healthcare Agent Relationshi p Communication [place] Rony Spouse Health Care Repr esentative (appointed verbally by patient or by statute hierarchy) Care Teams Study Specialist Relationship Specialty Start Date End Date Gregory Goodson MD [address] [place] [address] [place] [phone] PCP - General Family Medicine 10/23/13 documented as of this encounter
--- OUTSIDE RECORDS SUMMARY | 2023-05-09 04:42 | External Medical Summary | Summary of Care ---
Author Name Unknown Organization [facility] Address [address] [place] [address] Phone [phone] Care Team Providers Care Loom Changer Name Role Phone Gregory Goodson MD Primary Care Provide r Reason for Visit * Reason Onset Date Comments Medication Refill 03/11/2023 Encounter Details Date Type Department Care Team ([facility] st Contact Info) Description 03/11/2023 Refill Cardiology, [facility] [address] [facility] [place] [address] Antonia Lou PAUdayC [address] [facility] [place] [address] HTN, goal below 150/90 Allergies Active Allergy Reactions Criticality Noted Date Comments Penicillins 04/04/2000 rash documented as of this encounter (statuses as of 03/14/2023) Medications Medication Sig Dispensed Refills Start Date End Date Status VITAMIN D3 2000 UNITS PO CAPSIndications:Vi tamin D insufficiency 1 CAPSULE DAILY 90 Cap 3 2 Active Calcium 600 MG Oral Tablet Take 1 Tablet by mouth in the morning. 0 Active Spironolactone 25 MG Oral Tablet (Aldactone)Indicat ions:HTN, goal below 140/90,Peripheral edema,Hypokalemia Take 1/2 (one-half) tablet by mouth once daily 45 Tablet 5 2 Active Additional Information Patient taking differently: Mon,Wed,Fri only, Reported on 06/22/2022 Metoprolol Tartrate 50 MG Oral Tablet (Lopressor)Indicat ions:Paroxysmal atrial fibrillation (HCC) Take 1 Tablet (50 mg) by mouth 2 times a day. 180 Tablet 3 2 Active Flecainide Acetate 100 MG Oral Tablet (Tambocor)Indicati ons:Paroxysmal atrial fibrillation (HCC) Take 1 tablet by mouth twice daily 180 Tablet 3 3 Active Pravastatin Sodium 40 MG Oral Tablet (Pravachol)Indicat ions:Dyslipidemia, goal LDL below 100 TAKE 1 TABLET BY MOUTH ONCE DAILY AT BEDTIME 90 Tablet 3 3 Active Lisinopril 10 MG Oral Tablet (Prinivil)Indicati ons:HTN, goal below 150/90 Take 1 Tablet by mouth in the morning and 1 Tablet before bedtime. 180 Tablet 3 3 Active Warfarin Sodium 2.5 MG Oral Tablet (Coumadin)Indicati ons:Paroxysmal atrial fibrillation (HCC),Anticoagulat ion management encounter,alf current use of anticoagulant therapy TAKE 2 TABLETS BY MOUTH ON TUE, WED, TUE, AND TAKE 1 TABLET ALL OTHER DAYS OR DIRECTED BY ANTICOAGULATION CLINIC 100 Tablet 5 3 Active amLODIPine Besylate 5 MG Oral Tablet (Norvasc)Indicatio ns:HTN, goal below 140/90 Take 1 tablet by mouth once daily 90 Tablet 3 3 Active Lansoprazole 30 MG Oral Capsule Delayed Release (Prevacid)Indicati ons:Gastroesophage al reflux disease with esophagitis without hemorrhage TAKE 1 CAPSULE BY MOUTH ONCE DAILY 30 MINUTES BEFORE BREAKFAST 90 Capsule 1 3 Active Klor-Con M10 10 MEQ Oral Tablet Extended ReleaseIndications :HTN, goal below 150/90 Take 1 Tablet by mouth in the morning. 90 Tablet 3 3 Active Klor-Con M10 10 MEQ Oral Tablet Extended ReleaseIndications :HTN, goal below 150/90 Take 1 tablet by mouth once daily 90 Tablet 3 3 03/11/20 23 Discontinu ed(Refill) documented as of this encounter (statuses as of 03/14/2023) Active Problems Problem Noted Date Diagnosed Date [...] 150/90 01/31/2009 Overview: Modified per HTN Taxonomy. alf current use of anticoagulant therapy 1 04/03/2005 documented as of this encounter (statuses as of 03/14/2023) Resolved Problems Problem Noted Date Diagnosed Date [...] BID then 100mg BID(uptitrated spring 2013) plus [id number]-pocket Well controlled until 01/2014 Admission 01/30- for rapid AF-> changed to sotalol -> admission 02/05 -> changed to amiodarone AMiodarone 400mg QD On warfarin halfway ([id number]=SMF,HSV55-12,FEMALE=3) July 2013 Echo EF 60% mod LA enlargement 1+ MR, 1+ TR Pulmonary Vein Isolation (RF) 02/2014 AMiodarone discontinued 03/2014 for abdominal discomfort Abnormal mammogram 01/29/2003 9 BENIGN HYPERTENSION 02/01/20 Overview: Modified per HTN Taxonomy. Menopause 01/29/2015 documented as of this encounter (statuses as of 03/14/2023) Immunizations Name Administration Dates Next Due COVID-19 [...] encounter Miscellaneous Notes * Telephone Encounter - Antonia Lou PA-C - 03/14/2023 12:30 PM ESTSigned Prescriptions: Disp Refills Klor-Con M10 10 MEQ Oral Tablet Extended R*90 Tab*3 Sig: Take 1 Tablet by mouth in the morning. Authorizing Provider: ANTONIA LOU * Telephone Encounter - Josephine Flowers LPN - 03/14/2023 12:07 PM ESTPending Prescriptions: Disp Refills Klor-Con M10 10 MEQ Oral Tablet Extended R*90 Tab*3 Sig: Take 1 Tablet by mouth in the morning. * Telephone Encounter - Josephine Flowers LPN - 03/14/2023 12:05 PM EST Did you pend patient's preferred pharmacy and medication before forwarding?yes Pharmacy: [facility] [address] [place] [address] Pending Prescriptions: Disp Refills Klor-Con M10 10 MEQ Oral Tablet Extended *90 Tab*3 Sig: Take 1 Tablet by mouth in the morning. Last Visit: 12/24/2022 (in office), Visit date not found (telemedicine) Next Visit: 04/13/2023 If no future appointments scheduled, and last appointment is greater than a year ago, please schedule patient for a follow-up appointment Last date the medication was ordered: 08/2022 Is this request for a controlled substance? NO Urine Drug Screen:No results found. However, due to the size of the patient record, not all encounters were searched. Please check Results Review for a complete set of results. Patient Phone Numbers Labs: Lab Results Component Value Date/Time CREAT 1.1 (H) 09/30/2022 11:39 AM CREAT 1.18 04/10/2021 12:00 AM CREAT 1.1 (H) 04/18/2020 10:27 AM CREAT 0.8 07/02/1996 03:25 PM POTASSIUM 4.6 09/30/2022 11:39 AM POTASSIUM 3.8 04/10/2021 12:00 AM POTASSIUM 4.2 [...] 03/18/2023 1:00 PM EST Office Visit Family [address] [place] [phone] Gregory Goodson MD [address] [place] [address] [place] [address] 03/18/2023 2:10 PM EST Anticoagulation Pharmacy, [address] [place] [address] [place] [address] 04/04/2023 2:00 PM EST Office Visit [address] [place] [phone] Gregory Goodson MD [address] [place] [address] [place] [address] 04/13/2023 10:00 AM EST Office Visit [facility] [place] [address] Bernardino Betancur DO [address] [place] [address] 05/18/2023 9:00 AM EST Cardiac Studies Cardiology, [facility] [place] [address] Dalila Mejia [facility] [place] [address] 05/31/2023 11:00 AM EST Office Visit Cardiology, [facility] [place] [address] Aye Musa CRNP [address] [place] [phone] 11/03/2023 10:45 AM EDT Office Visit Dermatology [facility] [address] [facility] [place] [address] Buffy De Souza MD [address] [facility] [place] [address] 01/12/2024 10:30 AM EDT Office Visit [facility] [address] [place] [phone] Tari Gardner CRNP [address] [place] [address] Health Maintenance Due Date Last Done Comments DTaP,Tdap,and Td Vaccines (1 - Tdap) 1959 COVID-19 Vaccine (4 - 2022- season) 2022 03/17/2021, 07/23/2020, 06/18/2020 Depression Screening 10/01/2023 09/30/2022 GFR 10/01/2023 09/30/2022, 08/2022, 01/20/2022, Additional history exists DXA Scan 01/21/2024 01/20/2022, 12/27, 12/25/2019, Additional history exists Albumin/Creatinine Ratio 04/02/2025 04/02/2022, 01/27 Pneumococcal Vaccine: 65+ Years Completed 01/29/2015, 06/05/2007 Zoster Vaccines Completed 10/31/2019, 07/2019, 09/14/2014 VITAMIN D LEVEL ONCE IN A LIFETIME-USE SMARTSET# [id number] Completed 01/20/2022, 04/04/2020, 03/23/2019, Additional history exists [...] this encounter Medical Devices Implanted Type Area Narrow Gauge Brakeman Device Identifier Shelf Expiration Date Model / Serial / Lot Lens Intraoc 22.5 - [id number] - [id number] Implanted:Qty: 1 on 04/15/2022 by Armand Mallory MD at [facility] Right: Eye [employer] 12/25/2026 [id number] / [id number] / [id number] Lens Intraoc 22.5 - [id number] - [id number] Implanted:Qty: 1 on 04/22/2022 by Armand Mallory MD at OR [facility] Left: Eye [employer] 02/24/2027 [id number] / [id number] / [id number] documented as of this encounter Visit Diagnoses Diagnosis HTN, goal below 150/90 documented in this [...] the patient have Health Care Power of Aluminum Container Tester? No Code Status History Code Status Date Activated Date Inactivated Comments No Code 04/15/2022 7:59 AM 04/15/2022 2:36 PM This order reflects the patients wishes and were consensually agreed upon. Question Answer Comments Discussion of Advance Directives occurred with: Patient Does the patient have a Living Will? No Does the patient have Health Care Power of Aluminum Container Tester? No Full Code 03/04/2014 1:13 PM 03/05/2014 2:17 PM This order reflects the patients wishes and were consensually agreed upon. Healthcare Agents on File Name Relationship Healthcare Agent Relationshi p Communication [place] Spouse Health Care Repr esentative (appointed verbally by patient or by statute hierarchy) Care Teams Loom Changer Relationship Specialty Start Date End Date Gregory Goodson MD [address] [place] [address] [place] [address] PCP - General Family Medicine 10/23/13 documented as of this encounter
--- NOTE | 2023-05-09 04:51 | Emergency Department Note ---
Impression & Plan Near syncope, Atrial flutter with rapid ventricular response ED Provider Note Provider: Dontrell Valerio MD DATE OF SERVICE: 05/09/2023 CHIEF COMPLAINT: Near syncope HISTORY OF PRESENT ILLNESS: Patient is a 82-year-old female past medical history of atrial flutter/fibrillation, tachybradycardia syndrome with pacemaker, hypertension, and CKD present here via ambulance tonight after being near syncopal. Patient states she was well earlier yesterday. Last evening he can feel little bit off and weak. States she had a little bit of stomach upset but not really nausea not rib pain. Went to bed. Woke around 2 AM was able to get to the bathroom and get back to bed just felt a little bit off. Around 3 AM did similar but got to the bathroom and then felt like she was in a pass out. Denies chest pain. Reports maybe little shortness of breath. Denies nausea or vomiting. Denies falling. No syncope. No significant headache. Is feeling better now. EMS report that patient has been somewhat tachycardic for them but family had reported that they thought her heart rate was in the 40s initially. Patient states last several days she has not had significant cough or congestion but did have RSV somewhat recently. PAST MEDICAL HISTORY: As noted above MEDICATIONS: Reviewed home medication and states compliance with home medication. SOCIAL HISTORY: Resides at home with PHYSICAL EXAM: GENERAL: alert and oriented in no acute distress on stretcher Head: normocephalic and atraumatic EYES: No injection, discharge or icterus. PERRL, EOMI. NECK: Trachea midline. Supple. ENT: Mucous membranes pink and moist. LUNGS: Airway patent. No retractions. Breath sounds clear with good air entry bilaterally. HEART: Regular tachycardic rate and rhythm. No chest wall tenderness ABDOMEN: Soft and non-tender, without guarding or rebound. SKIN: Acyanotic, warm, dry, without rashes EXTREMITIES: Without tenderness or deformity with trace pedal edema. NEUROLOGICAL: No focal deficits. No aphasia. No facial droop or slurred speech. Normal strength and tone in the extremities. Sensation to gross touch normal. EK bpm sinus tachycardia versus a a flutter as is fairly unwavering without acute ST segment elevation or depression a QTc of 491. CONTINUOUS CARDIAC MONITORING: was ordered and showed a tachycardia appears to be unwavering in the 110s consistent likely with atrial flutter 1 view chest x-ray: No pneumothorax, pneumonia, pulmonary edema, or free air noted. Some cardiomegaly and pacemaker in place. Patient's laboratory studies and imaging reviewed. Differential includes Infection, dehydration, metabolic abnormality, hypo/hyperglycemia, electrolyte disturbance, anemia, hypoxia, cardiac sources, intracerebral event, toxicologic, neurologic, as well as other pathologies. IMPRESSION/MEDICAL DECISION MAKING: EKG and pacemaker interrogation ordered. Blood work here completed. No significant anemia or leukocytosis on blood work. No significant electrolyte abnormality or signs of renal dysfunction on blood work at this time. No signs of troponin elevation or liver dysfunction. INR checked given warfarin usage and therapeutic. Low suspicion for VTE/PE/DVT given this. Denies significant chest pain. Again repeat troponin is reassuring. Benign abdomen on exam and doubt acute intra-abdominal pathology. No significant focal numbness or weakness and doubt this represents acute CVA, stroke, or meningitis. UA and COVID flu RSV test sent. Again seems to be symptomatic from a flutter at this time. Updated patient and family at bedside. She is resting comfortably at this time. Will bring in for further cardiac evaluation and possible cardioversion. While not having a low magnesium will give of some IV magnesium to see if this may help with the A-flutter. Will give small dose of IV metoprolol; this as well did not have any significant effect on heart rate. DIAGNOSIS: Near syncope, atrial flutter DISPOSITION: Hospitalist will evaluate Patient was agreeable with this plan. Past Med/Surg History Medical History Tachy-syed syndrome History of pacemaker Pacemaker HLD (hyperlipidemia) FEDERICO (acute kidney injury) Weakness Shortness of breath Hiatal hernia Upper GI bleed Compression fracture of T11 vertebra HTN (hypertension) Atrial fibrillation Obstructive sleep apnea CKD (chronic kidney disease) stage 3, GFR 30-59 ml/min GERD (gastroesophageal reflux disease) Surgical History S/P cholecystectomy Family History Other Diabetes Hypertension Social History Smoking Status: Never smoker Second Hand Exposure: No; Do You Dip or Chew Tobacco: No; Hx Alcohol Use: No Hx Substance Use: No Preferred Language: Australian Communication Ability: Effective Visual Impairment: No Limitations Hearing Ability: Normal Program Director Air Talent Required: No Beliefs That Will Affect Care: None Current Living Situation: Spouse Current Living Situation Comment: LIVES WITH Feels Safe at Home: Yes Assistive Devices: None Allergies Allergies Allergy/AdvReac Type Severity Reaction Status Date / Time Penicillins Allergy Unknown RASH Verified 03/09/23 15:19 Home Meds Home Medications Medication Instructions Recorded Confirmed amlodipine 5 mg tablet 5 mg PO QAM 05/29/18 03/09/23 flecainide 100 mg tablet 100 mg PO BID 05/29/18 03/09/23 pravastatin 40 mg tablet 40 mg PO HS 05/29/18 03/09/23 potassium chloride 10 mEq 10 meq PO QAM 06/05/18 03/09/23 tablet,extended release(part/cryst) (Klor-Con M) lansoprazole 30 mg capsule,delayed 30 mg PO DAILYBB 04/10/21 03/09/23 release (Prevacid) spironolactone 25 mg tablet 12.5 mg PO MOWEFR 09/05/21 03/09/23 warfarin 2.5 mg tablet 0 mg PO DAILY 09/05/21 03/09/23 calcium carbonate 600 mg calcium 600 mg PO DAILY 09/06/21 03/09/23 (1,500 mg) tablet (Calcium) cholecalciferol (vitamin D3) 50 50 mcg PO DAILY 09/06/21 03/09/23 mcg (2,000 unit) tablet (Vitamin D3) Previous Rx's Medication Instructions Recorded lisinopril 2.5 mg tablet 2.5 mg PO DAILY #30 tabs 03/11/23 metoprolol succinate 25 mg 75 mg (3 x 25 mg) PO BID 30 days 03/11/23 tablet,extended release 24 hr #180 tabs Results & Data (ED) Vital Signs Vital Signs - 24 hr 05/09/23 04:43 05/09/23 04:43 05/09/23 04:54 Temperature 36.8 C 36.8 C Temperature Source Oral Oral Pulse Rate 116 H 117 H Pulse Rate [Apical] 118 H Pulse Rhythm Regular Pulse Rhythm [Apical] Regular Pulse Strength Normal Pulse Strength [Apical] Normal Respiratory Rate 16 16 Respiratory Effort / Characteristics Non-Labored Non-Labored Respiratory Depth Normal Normal Respiratory Pattern Regular Regular Blood Pressure 136/93 Blood Pressure [Left Arm] 136/93 Blood Pressure Mean 107 Blood Pressure Mean [Left Arm] 107 Pulse Oximetry 96 97 Oxygen Delivery Method Room Air Room Air Sepsis Recent Fever Within 48 Hours No Sepsis New/Unexplained Change in Mental Status No Sepsis Action Taken by Nursing No Action Required 05/09/23 05:00 05/09/23 05:05 05/09/23 05:31 Temperature Temperature Source Pulse Rate 112 H 117 H 119 H Pulse Rate [Apical] Pulse Rhythm Regular Pulse Rhythm [Apical] Pulse Strength Pulse Strength [Apical] Respiratory Rate 22 16 15 Respiratory Effort / Characteristics Respiratory Depth Respiratory Pattern Blood Pressure 141/105 H Blood Pressure [Left Arm] Blood Pressure Mean 117 Blood Pressure Mean [Left Arm] Pulse Oximetry 96 96 94 Oxygen Delivery Method Room Air Sepsis Recent Fever Within 48 Hours Sepsis New/Unexplained Change in Mental Status Sepsis Action Taken by Nursing 05/09/23 06:00 05/09/23 06:30 05/09/23 06:43 Temperature Temperature Source Pulse Rate 117 H 98 H 110 H Pulse Rate [Apical] Pulse Rhythm Pulse Rhythm [Apical] Pulse Strength Pulse Strength [Apical] Respiratory Rate 28 H 12 Respiratory Effort / Characteristics Respiratory Depth Respiratory Pattern Blood Pressure 116/85 116/85 114/86 Blood Pressure [Left Arm] Blood Pressure Mean 95 95 Blood Pressure Mean [Left Arm] Pulse Oximetry 95 94 Oxygen Delivery Method Sepsis Recent Fever Within 48 Hours Sepsis New/Unexplained Change in Mental Status Sepsis Action Taken by Nursing Laboratory Data 05/09/23 04:47 05/09/23 04:47 Lab Results 05/09/23 05/09/23 Range/Units 04:47 Unknown WBC 6.73 (4.8-10.8) K/ul RBC 4.78 (4.20-5.40) M/uL Hgb 14.2 (12.0-16.0) g/dl Hct 42.2 (37.0-47.0) % MCV 88.3 (80.0-100.0) fL MCH 29.7 (25.0-34.0) pg MCHC 33.6 (32.0-36.0) g/dL RDW Std Deviation 44.4 (36.4-46.3) fL RDW Coeff of Kenrick 13.7 (11.5-14.5) % Plt Count 234 (130-400) K/uL MPV 10.3 (9.4-12.4) fL Immature Gran % (Auto) 0.1 % Neut % (Auto) 69.3 % Lymph % (Auto) 21.7 % [place] % (Auto) 7.0 % Eos % (Auto) 1.3 % Baso % (Auto) 0.6 % Neut # (Auto) 4.66 (1.40-6.50) K/uL Lymph # (Auto) 1.46 (1.20-3.40) K/uL [place] # (Auto) 0.47 (0.11-0.59) K/uL Eos # (Auto) 0.09 (0.00-0.50) K/uL Baso # (Auto) 0.04 (0.00-0.20) K/uL Immature Gran # (Auto) 0.01 (0.01-0.20) K/uL PT 26.6 H (9.0-12.0) Seconds INR 2.6 H (0.9-1.1) APTT 40 H (21-31) Seconds PTT Ratio 1.4 Sodium 139 (136-145) mmol/L Potassium 3.9 (3.5-5.1) mmol/L Chloride 103 (98-107) mmol/L Carbon Dioxide 29 (21-32) mmol/L Anion Gap 7 (3-11) BUN 21 (6-23) mg/dl Creatinine 1.07 (0.6-1.2) mg/dl Est Cr Clr Drug Dosing 44.1 ml/min Est GFR ( Amer) 56.8 ml/min Est GFR (Non-Af Amer) 49.0 ml/min BUN/Creatinine Ratio 19.6 (10-20) Glucose 99 (70-99(Fasting)) mg/dl Calcium 9.7 (8.6-10.3) mg/dl Magnesium 2.0 (1.7-2.4) mg/dl Total Bilirubin 1.3 H (0.2-1.0) mg/dl AST 17 (13-39) U/L ALT 13 (7-52) U/L Alkaline Phosphatase 36 (34-104) U/L Troponin I High Sens 7.4 (0-14) pg/ml Total Protein 7.3 (6.0-8.3) gm/dl Albumin 4.4 (3.4-5.0) gm/dl Globulin 2.9 (2.5-4.0) gm/dl Albumin/Globulin Ratio 1.5 (0.9-2) TSH 1.608 (0.300-4.500) uIu/ml Urine Color Yellow Urine Appearance Clear (Clear) Urine pH 7.0 (4.5-7.5) Ur Specific [place] 1.015 (1.000-1.030) Urine Protein Negative (Negative) Urine Glucose (UA) Negative (Negative) Urine Ketones Negative (Negative) Urine Blood 1+ H (Negative) Urine Nitrite Negative (Negative) Urine Bilirubin Negative (Negative) Urine Urobilinogen Negative (Negative) Ur Leukocyte Esterase 2+ H (Negative) Administered Medications Magnesium Sulfate/Dextrose (Magnesium Sulfate / D5w) 1 gm in 100 mls @ 200 mls/hr IV Q30M [facility] Stop: 05/09/23 07:14 Last Admin: 05/09/23 06:45 Dose: 200 mls/hr Documented By: ISSAC Potassium Chloride/Sodium Chloride (Normal Saline W/20 Meq Kcl) 20 meq in 1,000 mls @ 50 mls/hr IV .Q20H ONE; Protocol Stop: 05/10/23 02:08 Last Admin: 05/09/23 06:44 Dose: 50 mls/hr Documented By: ISSAC Discontinued Medications Metoprolol Tartrate (Metoprolol Tartrate 1 Mg/Ml Vial) 5 mg IV NOW STA Stop: 05/09/23 06:07 Last Admin: 05/09/23 06:30 Dose: 5 mg Documented By: ISSAC Potassium Chloride (Potassium Chloride Crtab 20 Meq Tabcr) 20 meq PO NOW STA Stop: 05/09/23 06:09 Last Admin: 05/09/23 06:47 Dose: Not Given Documented By: ISSAC Discharge Plan Visit Data Chief Complaint: Syncope (Near Syncope) ED Provider: Dontrell Valerio Discharge Problem: Near syncope, Atrial flutter with rapid ventricular response Patient Disposition: Being Evaluated by Hospitalist Forms Stand Alone Forms: [facility] Prescriptions Prescriptions: No Action pravastatin 40 mg tablet 40 mg PO HS amlodipine 5 mg tablet 5 mg PO QAM flecainide 100 mg tablet 100 mg PO BID potassium chloride [Klor-Con M10] 10 mEq tablet,ER particles/crystals 10 meq PO QAM lansoprazole [Prevacid] 30 mg capsule,delayed release(DR/EC) 30 mg PO DAILYBB warfarin 2.5 mg tablet 0 mg PO DAILY Rx Instructions: Take 5mg by mouth on Tuesday @1600, and take 2.5mg by mouth /Tue//Tue/Tue/Sun @1600 spironolactone 25 mg tablet 12.5 mg PO Rx Instructions: 12.5mg by mouth on Tue/Tue/Tue calcium carbonate [Calcium 600] 600 mg calcium (1,500 mg) Tablet 600 mg PO DAILY cholecalciferol (vitamin D3) [Vitamin D3] 50 mcg (2,000 unit) Tablet 50 mcg PO DAILY metoprolol succinate 25 mg Tablet Extended Release 24 Hr 75 mg PO BID 30 Days Qty: 180 2RF lisinopril 2.5 mg tablet 2.5 mg PO DAILY Qty: 30 1RF Referrals Referrals: Gregory Goodson MD [Primary Care Provider] -
[2023-05-09 05:03] LABS: Basophils # (auto) 0.04 K/uL (0.00-0.20); Basophils % (auto) 0.6 %; Eosinophils # (auto) 0.09 K/uL (0.00-0.50); Eosinophils % (auto) 1.3 %; Hematocrit (blood only) 42.2 % (37.0-47.0); Hemoglobin 14.2 g/dl (12.0-16.0); Immature Granulocytes # (auto) 0.01 K/uL (0.01-0.20); Immature Granulocytes % (auto) 0.1 %; Lymphocytes # (auto) 1.46 K/uL (1.20-3.40); Lymphocytes % (auto) 21.7 %; Mean Corpuscular Hemoglobin 29.7 pg (25.0-34.0); Mean Corpuscular Hgb Conc 33.6 g/dL (32.0-36.0); Mean Corpuscular Volume 88.3 fL (80.0-100.0); Mean Platelet Volume 10.3 fL (9.4-12.4); Monocytes # (auto) 0.47 K/uL (0.11-0.59); Neutrophils # (auto) 4.66 K/uL (1.40-6.50); Neutrophils % (auto) 69.3 %; Platelet Count 234 K/uL (130-400); RDW Coefficient of Variation 13.7 % (11.5-14.5); RDW Standard Deviation 44.4 fL (36.4-46.3); Red Blood Count 4.78 M/uL (4.20-5.40); White Blood Count 6.73 K/ul (4.8-10.8)
[2023-05-09 05:18] LABS: Albumin Globulin Ratio 1.5 (0.9-2); Albumin Level 4.4 gm/dl (3.4-5.0); BUN Creatinine Ratio 19.6 (10-20); Bilirubin,Total 1.3 mg/dl (0.2-1.0); Calcium 9.7 mg/dl (8.6-10.3); Creatinine Clr Calc Pharmacy 44.1 ml/min; Est GFR (African American) 56.8 ml/min; Globulin 2.9 gm/dl (2.5-4.0); Potassium 3.9 mmol/L (3.5-5.1); Total Protein 7.3 gm/dl (6.0-8.3)
[2023-05-09 05:24] LABS: Troponin I High Sensitivity 7.4 pg/ml (0-14)
[2023-05-09 05:30] LABS: INR 2.6 (0.9-1.1); Partial Thromboplastin Ratio 1.4; Partial Thromboplastin Time 40 Seconds (21-31); Prothrombin Time 26.6 Seconds (9.0-12.0)
[2023-05-09 05:33] LABS: Thyroid Stimulating Hormone 1.608 uIu/ml (0.300-4.500)
[2023-05-09 06:07] LABS: Appearance Urine Clear (Clear); Bilirubin Urine Negative (Negative); Blood Urine 1+ (Negative); Color Urine Yellow; Glucose Urine UA Negative (Negative); Ketones Urine Negative (Negative); Leukocyte Esterase Urine 2+ (Negative); Nitrite Urine Negative (Negative); Protein Urine Negative (Negative); Specific Gravity Urine 1.015 (1.000-1.030); Urobilinogen Urine Negative (Negative)
[2023-05-09] MEDS: METOPROLOL TARTRATE 1 MG/ML VIAL IV STA (06:30)
[2023-05-09] MEDS: NSS + 20MEQ KCL 20 MEQ/1,000 ML BAG IV ONE (06:44)
[2023-05-09] MEDS: MAGNESIUM SULFATE / D5W 1 GM/100 ML BAG IV SCH (06:45)
--- NOTE | 2023-05-09 06:46 | History & Physical Report ---
Date of Service May 09, 2023 Assessment & Plan (1) Atrial flutter with rapid ventricular response: Plan: Recurrent atrial flutter hx paroxysmal AF/AFL sp ablation status post cardioversion on anticoagulation SSS status post PPM INR therapeutic chronic diastolic heart failure (EF 55 to 60%, TTE 2022), patient euvolemic valvular heart disease (moderate MR/TR) HTN, BP stable hyperlipidemia, on statin Rx GERD, on PPI TISHA on CPAP Hypomagnesemia OBS PCU Flecainide a.m. dose now to facilitate conversion Titrate home beta-maribell Cardiology consult Re: Recurrent atrial flutter N.p.o. until patient seen by cardiology May need cardioversion if patient does not convert with a.m. flecainide dose Supplement electrolytes, goal serum potassium of at least 4, goal serum magnesium of at least 2 DVT prophylaxis Coumadin INR goal between 2 and 3 Full code Text document was generated using [employer] voice recognition software. It may contain grammatical or spelling errors. Kindly contact undersigned for clarification of any documentation item in question. History of Present Illness Chief Complaint: Near syncope, Primary Care Provider: Gregory Goodson MD History obtained from patient, family, and records. Medical history significant for for chronic diastolic heart failure (EF 55 to 60%, TTE 2022), paroxysmal AF/atrial flutter sp ablation status post cardioversion on anticoagulation, SSS status post PPM, valvular heart disease (m oderate MR/TR), HTN, hyperlipidemia, essential tremors, GERD, TISHA on CPAP Last confinement February 2023 for rapid A-fib/flutter status post cardioversion. Toprol XL increased to 75 mg p.o. twice daily on discharge. Patient felt like she was going to pass out last night. Somewhat weak with transient stomach upset. No chest pain, SOB, palpitations or headache. Compliant with home medications. No unusual stress or exertion. Patient still not feeling well after waking up this morning. EMS summoned to patient's home. Patient noted to be tachycardic. Rapid atrial flutter, heart rate of 110s noted at the ER. IV metoprolol administered at the ER. Medical History as above Surgical History : Knee surgery, cholecystectomy, PPM, cataract surgeries, hip fracture surgery Family History : Diabetes, COPD, high blood pressure Personal/Social history : Non-smoker, no EtOH intake, retired from [employer] work Allergies Allergy/AdvReac Type Severity Reaction Status Date / Time Penicillins Allergy Unknown RASH Verified 03/09/23 15:19 Home Medications Medication Instructions Recorded Confirmed Type amlodipine 5 mg tablet 5 mg PO QAM 05/29/18 05/09/23 History flecainide 100 mg tablet 100 mg PO BID 05/29/18 05/09/23 History pravastatin 40 mg tablet 40 mg PO HS 05/29/18 05/09/23 History potassium chloride 10 mEq 10 meq PO QAM 06/05/18 05/09/23 History tablet,extended release(part/cryst) (Klor-Con M) lansoprazole 30 mg capsule,delayed 30 mg PO DAILYBB 04/10/21 05/09/23 History release (Prevacid) spironolactone 25 mg tablet 12.5 mg PO MOWEFR 09/05/21 05/09/23 History warfarin 2.5 mg tablet 0 mg PO DAILY 09/05/21 05/09/23 History calcium carbonate 600 mg calcium 600 mg PO DAILY 09/06/21 05/09/23 History (1,500 mg) tablet (Calcium) cholecalciferol (vitamin D3) 50 50 mcg PO DAILY 09/06/21 05/09/23 History mcg (2,000 unit) tablet (Vitamin D3) lisinopril 2.5 mg tablet 2.5 mg PO DAILY #30 tabs 03/11/23 05/09/23 Rx metoprolol succinate 25 mg 75 mg (3 x 25 mg) PO BID 30 days 03/11/23 05/09/23 Rx tablet,extended release 24 hr #180 tabs Past Med/Surg History Medical History Tachy-syed syndrome History of pacemaker Pacemaker HLD (hyperlipidemia) FEDERICO (acute kidney injury) Weakness Shortness of breath Hiatal hernia Upper GI bleed Compression fracture of T11 vertebra HTN (hypertension) Atrial fibrillation Obstructive sleep apnea CKD (chronic kidney disease) stage 3, GFR 30-59 ml/min GERD (gastroesophageal reflux disease) Surgical History S/P cholecystectomy Family History Other Diabetes Hypertension Social History Smoking Status: Never smoker Second Hand Exposure: No; Do You Dip or Chew Tobacco: No; Hx Alcohol Use: No Hx Substance Use: No Preferred Language: Irish Communication Ability: Effective Visual Impairment: No Limitations Hearing Ability: Normal Fuse Assembler Required: No Beliefs That Will Affect Care: None Current Living Situation: Spouse Current Living Situation Comment: LIVES WITH Feels Safe at Home: Yes Assistive Devices: None Review of Systems Review of Systems: As per HPI, all other systems reviewed and negative Physical Exam Physical Exam: GENERAL: Comfortable, pleasant, no respiratory distress SKIN: Normal color, warm HEENT: [place] palpebral conjunctivae, no ptosis, dry buccal mucosa NECK : Supple, no tenderness CHEST : CTA, no tenderness HEART : Tachycardic, systolic murmur ABDOMEN: Some distention, no tenderness EXTREMITIES : No LE swelling/tenderness, no other conspicuous deformities noted NEUROLOGIC : Coherent, no facial asymmetry, no other gross focality Results & Data Results & Data Vital Signs (Past 12 Hours) Vital Signs Temp Pulse Pulse Resp BP BP Pulse Ox 05/09/23 06:30 98 H 116/85 05/09/23 05:31 119 H 15 94 05/09/23 05:05 117 H 16 96 05/09/23 05:00 112 H 22 141/105 H 96 05/09/23 04:54 117 H 05/09/23 04:43 36.8 C 118 H 16 136/93 97 05/09/23 04:43 36.8 C 116 H 16 136/93 96 O2 Del Method 05/09/23 06:30 05/09/23 05:31 05/09/23 05:05 Room Air 05/09/23 05:00 05/09/23 04:54 05/09/23 04:43 Room Air 05/09/23 04:43 Room Air Laboratory Results Laboratory Results WBC 6.73 K/ul (4.8-10.8) 05/09/23 04:47 RBC 4.78 M/uL (4.20-5.40) 05/09/23 04:47 Hgb 14.2 g/dl (12.0-16.0) 05/09/23 04:47 Hct 42.2 % (37.0-47.0) 05/09/23 04:47 MCV 88.3 fL (80.0-100.0) 05/09/23 04:47 MCH 29.7 pg (25.0-34.0) 05/09/23 04:47 MCHC 33.6 g/dL (32.0-36.0) 05/09/23 04:47 RDW Std Deviation 44.4 fL (36.4-46.3) 05/09/23 04:47 RDW Coeff of [place] 13.7 % (11.5-14.5) 05/09/23 04:47 Plt Count 234 K/uL (130-400) 05/09/23 04:47 MPV 10.3 fL (9.4-12.4) 05/09/23 04:47 Immature Gran % (Auto) 0.1 % 05/09/23 04:47 Neut % (Auto) 69.3 % 05/09/23 04:47 Lymph % (Auto) 21.7 % 05/09/23 04:47 [place] % (Auto) 7.0 % 05/09/23 04:47 Eos % (Auto) 1.3 % 05/09/23 04:47 Baso % (Auto) 0.6 % 05/09/23 04:47 Neut # (Auto) 4.66 K/uL (1.40-6.50) 05/09/23 04:47 Lymph # (Auto) 1.46 K/uL (1.20-3.40) 05/09/23 04:47 [place] # (Auto) 0.47 K/uL (0.11-0.59) 05/09/23 04:47 Eos # (Auto) 0.09 K/uL (0.00-0.50) 05/09/23 04:47 Baso # (Auto) 0.04 K/uL (0.00-0.20) 05/09/23 04:47 Immature Gran # (Auto) 0.01 K/uL (0.01-0.20) 05/09/23 04:47 PT 26.6 Seconds (9.0-12.0) H 05/09/23 04:47 INR 2.6 (0.9-1.1) H 05/09/23 04:47 APTT 40 Seconds (21-31) H 05/09/23 04:47 PTT Ratio 1.4 05/09/23 04:47 Sodium 139 mmol/L (136-145) 05/09/23 04:47 Potassium 3.9 mmol/L (3.5-5.1) 05/09/23 04:47 Chloride 103 mmol/L (98-107) 05/09/23 04:47 Carbon Dioxide 29 mmol/L (21-32) 05/09/23 04:47 Anion Gap 7 (3-11) 05/09/23 04:47 BUN 21 mg/dl (6-23) 05/09/23 04:47 Creatinine 1.07 mg/dl (0.6-1.2) 05/09/23 04:47 Est Cr Clr Drug Dosing 44.1 ml/min 05/09/23 04:47 Est GFR ( Amer) 56.8 ml/min 05/09/23 04:47 Est GFR (Non-Af Amer) 49.0 ml/min 05/09/23 04:47 BUN/Creatinine Ratio 19.6 (10-20) 05/09/23 04:47 Glucose 99 mg/dl (70-99(Fasting)) 05/09/23 04:47 Calcium 9.7 mg/dl (8.6-10.3) 05/09/23 04:47 Magnesium 2.0 mg/dl (1.7-2.4) 05/09/23 04:47 Total Bilirubin 1.3 mg/dl (0.2-1.0) H 05/09/23 04:47 AST 17 U/L (13-39) 05/09/23 04:47 ALT 13 U/L (7-52) 05/09/23 04:47 Alkaline Phosphatase 36 U/L (34-104) 05/09/23 04:47 Troponin I High Sens 7.4 pg/ml (0-14) 05/09/23 04:47 Total Protein 7.3 gm/dl (6.0-8.3) 05/09/23 04:47 Albumin 4.4 gm/dl (3.4-5.0) 05/09/23 04:47 Globulin 2.9 gm/dl (2.5-4.0) 05/09/23 04:47 Albumin/Globulin Ratio 1.5 (0.9-2) 05/09/23 04:47 TSH 1.608 uIu/ml (0.300-4.500) 05/09/23 04:47 Urine Color Yellow 05/09/23 Unknown Urine Appearance Clear (Clear) 05/09/23 Unknown Urine pH 7.0 (4.5-7.5) 05/09/23 Unknown Ur Specific [place] 1.015 (1.000-1.030) 05/09/23 Unknown Urine Protein Negative (Negative) 05/09/23 Unknown Urine Glucose (UA) Negative (Negative) 05/09/23 Unknown Urine Ketones Negative (Negative) 05/09/23 Unknown Urine Blood 1+ (Negative) H 05/09/23 Unknown Urine Nitrite Negative (Negative) 05/09/23 Unknown Urine Bilirubin Negative (Negative) 05/09/23 Unknown Urine Urobilinogen Negative (Negative) 05/09/23 Unknown Ur Leukocyte Esterase 2+ (Negative) H 05/09/23 Unknown Diagnostic Findings Chest x-ray as per my interpretation cardiomegaly EKG as per my interpretation : rate 110, junctional rhythm, LAD, LAFB, inferior and anterior infarcts, T wave abnormalities inferior leads
[2023-05-09] MEDS: POTASSIUM CHLORIDE CRTAB 20 MEQ TABCR PO STA (06:47)
[2023-05-09] MEDS ORDERED: ACETAMINOPHEN 325 MG TAB PO PRN (06:48)
[2023-05-09] MEDS ORDERED: traMADol HCL 50 MG TABLET PO PRN (06:48)
[2023-05-09] MEDS ORDERED: hydrOXYzine HCl 10 MG TAB PO PRN (06:48)
[2023-05-09] MEDS ORDERED: PROMETHAZINE HCL 6.25 MG in SODIUM CHLORIDE 0.9% 50 ML IV PRN (06:48)
[2023-05-09] MEDS ORDERED: LORazepam 0.5 MG TAB PO PRN (06:49)
--- NOTE | 2023-05-09 07:00 | XRay Report ---
XR chest 1V portable HISTORY: weak, near syncope COMPARISON: Chest 03/09/2023. FINDINGS: No pneumothorax. No pleural effusions. No focal lung consolidations to suggest a pneumonia. No evidence for pulmonary edema. Is left-sided dual-chamber pacemaker. The heart remains mildly enla rged. IMPRESSION: No significant change compared to the prior study. No acute process. Stable cardiomegaly. ACT 112: Negative or not required by law. Electronically signed by: Jose Nettles M.D. 05/09/2023 6:59 AM
[2023-05-09 07:02] LABS: Bacteria Urine Negative (Negative); Epithelial Cell Urine 0-5 /lpf (0-5); RBC Urine 0-4 /hpf (0-4); WBC Urine 0-5 /hpf (0-5)
[2023-05-09 07:30] LABS: Influenza A virus by PCR Negative (Neg); Influenza B virus by PCR Negative (Neg); RSV by PCR Negative (Neg); SARS CoV2 RNA(COVID-19) Ceph NEGATIVE (Negative)
[2023-05-09] MEDS: FLECAINIDE ACETATE 100 MG TABLET PO STA (07:31)
[2023-05-09] MEDS: MAGNESIUM SULFATE / D5W 1 GM/100 ML BAG IV ONE (07:49)
[2023-05-09] MEDS ORDERED: NITROGLYCERIN SL 0.4 MG/TAB TAB SL PRN (08:15)
[2023-05-09] MEDS: METOPROLOL SUCC 25MG EXT REL TAB PO SCH (10:25)
[2023-05-09] MEDS: PANTOprazole 40 MG TAB PO SCH (10:26)
[2023-05-09] MEDS: amLODIPine BESYLATE 5 MG TAB PO SCH (10:26)
[2023-05-09] MEDS: SPIRONOLACTONE 12.5 MG TAB PO SCH (10:26)
[2023-05-09] MEDS: lisinopril 2.5 MG TAB PO SCH (10:26)
[2023-05-09] MEDS: FLECAINIDE ACETATE 100 MG TABLET PO ONE (10:35)
--- NOTE | 2023-05-09 10:41 | Cardiology Consultation ---
Date of Consultation May 09, 2023 Assessment & Plan (1) Atrial flutter with rapid ventricular response: (2) Tachy-syed syndrome: (3) Near syncope: (4) History of pacemaker: Plan 82-year-old female presents with symptomatic A-fib flutter with elevated ventricular response rate with associated lightheadedness/near syncope. This was addressed as follows 1. Paroxysmal atrial fibrillation with recurrence with elevated ventricular sponsor rate and symptomatic intolerance: Patient appropriately anticoagulated. Will give additional dose of flecainide 100 mg p.o. currently. Anticipate possible synchronized electrical cardioversion later this morning. If unsuccessful discussed options including rate control potential need for AV junction ablation 2. Tachybradycardia syndrome status post pacemaker insertion: We will plan on pacemaker reinterrogation, following above History of Present Illness Reason for Consultation: Atrial fibrillation flutter Attending Physician: Donato Chavez MD History of Present Illness Patient is an 82-year-old female with ongoing concern 1. Paroxysmal atrial fibrillation status post pulmonary vein isolation ablation, multiple antiarrhythmic therapies including sotalol, amiodarone (poor tolerance) now on flecainide and metoprolol, chronic anticoagulation with warfarin 2. Tachybradycardia syndrome status post dual-chamber pacemaker 09/02/2021, [employer] [place] XT DR MRI 3. Mixed valvular disease with mild aortic insufficiency and mild to moderate mitral insufficiency 4. Hypertension 5. Obstructive sleep apnea on CPAP Patient presents this admission noting hospitalization in February with recurrence of atrial fibrillation requiring synchronized electrical cardioversion Patient had recent upper respiratory infection RSV but symptoms mostly resolved Last evening awakened with shortness of breath after ambulation to the bathroom sensation of heart palpitating and pounding. Mildly lightheaded,/presyncopal on return to bed and summoned EMS On presentation A-fib flutter with elevated ventricular response rate Patient feeling improved after rate control but still heart rates 110s to 125 Notes no cough or worsening shortness of breath no chest pains no bleeding difficulties. Has been compliant with medications. Appetite and weight have been generally stable. Currently n.p.o. Allergies Allergy/AdvReac Type Severity Reaction Status Date / Time Penicillins Allergy Unknown RASH Verified 03/09/23 15:19 Home Medications Medication Instructions Recorded Confirmed Type amlodipine 5 mg tablet 5 mg PO QAM 05/29/18 05/09/23 History flecainide 100 mg tablet 100 mg PO BID 05/29/18 05/09/23 History pravastatin 40 mg tablet 40 mg PO HS 05/29/18 05/09/23 History potassium chloride 10 mEq 10 meq PO QAM 06/05/18 05/09/23 History tablet,extended release(part/cryst) (Klor-Con M) lansoprazole 30 mg capsule,delayed 30 mg PO DAILYBB 04/10/21 05/09/23 History release (Prevacid) spironolactone 25 mg tablet 12.5 mg PO MOWEFR 09/05/21 05/09/23 History warfarin 2.5 mg tablet 0 mg PO DAILY 09/05/21 05/09/23 History calcium carbonate 600 mg calcium 600 mg PO DAILY 09/06/21 05/09/23 History (1,500 mg) tablet (Calcium) cholecalciferol (vitamin D3) 50 50 mcg PO DAILY 09/06/21 05/09/23 History mcg (2,000 unit) tablet (Vitamin D3) lisinopril 2.5 mg tablet 2.5 mg PO DAILY #30 tabs 03/11/23 05/09/23 Rx metoprolol succinate 25 mg 75 mg (3 x 25 mg) PO BID 30 days 03/11/23 05/09/23 Rx tablet,extended release 24 hr #180 tabs Patient History Medical History Tachy-syed syndrome History of pacemaker Pacemaker HLD (hyperlipidemia) FEDERICO (acute kidney injury) Weakness Shortness of breath Hiatal hernia Upper GI bleed Compression fracture of T11 vertebra HTN (hypertension) Atrial fibrillation Obstructive sleep apnea CKD (chronic kidney disease) stage 3, GFR 30-59 ml/min GERD (gastroesophageal reflux disease) Surgical History S/P cholecystectomy Family History Other Diabetes Hypertension Social History Smoking Status: Never smoker Second Hand Exposure: No; Do You Dip or Chew Tobacco: No; Hx Alcohol Use: No Hx Substance Use: No Preferred Language: Faroese Communication Ability: Effective Visual Impairment: No Limitations Hearing Ability: Normal Family Health Nurse Practitioner Required: No Beliefs That Will Affect Care: None Current Living Situation: Spouse Current Living Situation Comment: LIVES WITH Feels Safe at Home: Yes Assistive Devices: None Review of Systems Review of Systems: All systems reviewed & are unremarkable except as noted in HPI & below Physical Exam Constitutional: well developed; no acute distress Eyes: PERRL, conjunctivae normal, anicteric sclerae ENMT: external ear and nose normal, oropharynx normal Neck: trachea midline, no thyromegaly Respiratory: normal respiratory effort, lungs clear to auscultation Cardiovascular: Rate/Rhythm: + tachycardic and + irregularly irregular Heart Sounds: + murmur Vessels: no JVD Extremities: no edema Chest (Breasts): Chest: + pacemaker Gastrointestinal (Abdomen): normal bowel sounds, soft, nontender, no hepatosplenomegaly Skin: no rashes, warm and dry Results & Data Vital Signs (Past 12 Hours) Vital Signs Temp Pulse Pulse Resp BP BP Pulse Ox 05/09/23 09:10 102 H 05/09/23 08:18 05/09/23 08:18 103 H 16 108/82 95 05/09/23 07:15 89 113/76 05/09/23 07:14 88 18 113/76 91 05/09/23 06:43 110 H 12 114/86 94 05/09/23 06:30 98 H 116/85 05/09/23 06:00 117 H 28 H 116/85 95 05/09/23 05:31 119 H 15 94 05/09/23 05:05 117 H 16 96 05/09/23 05:00 112 H 22 141/105 H 96 05/09/23 04:54 117 H 05/09/23 04:43 36.8 C 118 H 16 136/93 97 05/09/23 04:43 36.8 C 116 H 16 136/93 96 Pulse Ox O2 Del Method 05/09/23 09:10 05/09/23 08:18 95 05/09/23 08:18 Room Air 05/09/23 07:15 05/09/23 07:14 Room Air 05/09/23 06:43 05/09/23 06:30 05/09/23 06:00 05/09/23 05:31 05/09/23 05:05 Room Air 05/09/23 05:00 05/09/23 04:54 05/09/23 04:43 Room Air 05/09/23 04:43 Room Air Laboratory Results Laboratory Results - last 24 hr 05/09/23 05/09/23 04:47 Unknown WBC 6.73 RBC 4.78 Hgb 14.2 Hct 42.2 MCV 88.3 MCH 29.7 MCHC 33.6 RDW Std Deviation 44.4 RDW Coeff of [place] 13.7 Plt Count 234 MPV 10.3 Immature Gran % (Auto) 0.1 Neut % (Auto) 69.3 Lymph % (Auto) 21.7 [place] % (Auto) 7.0 Eos % (Auto) 1.3 Baso % (Auto) 0.6 Neut # (Auto) 4.66 Lymph # (Auto) 1.46 [place] # (Auto) 0.47 Eos # (Auto) 0.09 Baso # (Auto) 0.04 Immature Gran # (Auto) 0.01 PT 26.6 H INR 2.6 H APTT 40 H PTT Ratio 1.4 Sodium 139 Potassium 3.9 Chloride 103 Carbon Dioxide 29 Anion Gap 7 BUN 21 Creatinine 1.07 Est Cr Clr Drug Dosing 44.1 Est GFR ( Amer) 56.8 Est GFR (Non-Af Amer) 49.0 BUN/Creatinine Ratio 19.6 Glucose 99 Calcium 9.7 Magnesium 2.0 Total Bilirubin 1.3 H AST 17 ALT 13 Alkaline Phosphatase 36 Troponin I High Sens 7.4 Total Protein 7.3 Albumin 4.4 Globulin 2.9 Albumin/Globulin Ratio 1.5 TSH 1.608 Urine Color Yellow Urine Appearance Clear Urine pH 7.0 Ur Specific [place] 1.015 Urine Protein Negative Urine Glucose (UA) Negative Urine Ketones Negative Urine Blood 1+ H Urine Nitrite Negative Urine Bilirubin Negative Urine Urobilinogen Negative Ur Leukocyte Esterase 2+ H Urine RBC 0-4 Urine WBC 0-5 Ur Epithelial Cells 0-5 Ur Renal Epithelial Cell 5-10 H Urine Bacteria Negative SARS-CoV-2 (PCR) NEGATIVE Influenza Type A (PCR) Negative Influenza Type B (PCR) Negative RSV (RT-PCR) Negative Diagnostic Findings EKG on presentation A-fib flutter with intermittent pacing
[2023-05-09] MEDS: PROPOFOL IV EMULSION 10 MG/ML 20 ML VIAL IV SCH (11:26)
--- NOTE | 2023-05-09 11:37 | Emergency Department Note ---
Pre Sedation Assessment Vital Signs Temp Pulse Pulse Resp BP BP Pulse Ox 05/09/23 06:43 110 H 12 114/86 94 05/09/23 06:30 98 H 116/85 05/09/23 06:00 117 H 28 H 116/85 95 05/09/23 05:31 119 H 15 94 05/09/23 05:05 117 H 16 96 05/09/23 05:00 112 H 22 141/105 H 96 05/09/23 04:54 117 H 05/09/23 04:43 36.8 C 118 H 16 136/93 97 05/09/23 04:43 36.8 C 116 H 16 136/93 96 O2 Del Method 05/09/23 06:43 05/09/23 06:30 05/09/23 06:00 05/09/23 05:31 05/09/23 05:05 Room Air 05/09/23 05:00 05/09/23 04:54 05/09/23 04:43 Room Air 05/09/23 04:43 Room Air Cardiovascular + irregularly irregular + S1 normal + PMI normal + capillary refill normal Respiratory normal respiratory effort, lungs clear to auscultation Pre-Sedation Airway Assessment Smoking Status: Never smoker Hx Sleep Apnea: Yes (sometimes snores, uses CPAP) Hx Difficult Intubation: No Short, Thick Neck: No Thyromental Distance: > or= 3.5 Finger Breadths Oral Cavity: + Dentures Mallampati Class: II ASA: ASA3E NPO Status Date of Last Intake of Fluids: 05/08/23 Time of Last Intake of Fluids: 19:00 Last Oral Intake of Fluids Comment: Water Date of Last Intake of Solid Food: 05/08/23 Time of Last Intake of Solid Foods: 19:00 Last Intake of Solids Comment: Pizza Procedure Planning Contraindications for Sedation: none Current Medications Reviewed: Yes Notes The planned sedation has been discussed with the patient. Informed Consent was obtained. I have identified the patient, determined the appropriateness of sedation and have assessed the patient immediately prior to the procedure. All medicine(s) and interventions are by my order.
--- NOTE | 2023-05-09 11:39 | Emergency Department Note ---
ED Visit Note ED Physician: Procedural Sedation. 05/09/2023 Marissa Uribe is an 82-year-old female with a history of A-fib and recent cardioversion a few months ago for similar weakness/fatigue, who has been in ED over last few hours following a syncopal event last evening. Patient has been admitted to the hospital already and was awaiting cardiology evaluation. She was evaluated by cardiology this morning who requested she be sedated so they can cardiovert her. I discussed this with the patient and she is fully on board with plan for cardioversion. There is no absolute contraindications to cardioversion. She is previously done well with cardioversion and sedation. Reviewing chart she had received propofol without issue via anesthesia team last time this occurred about 2 months ago. Following sedation patient awake alert oriented. She was reevaluated several times over the next hour or 2 without any issue. Indication: Electrocardioversion by Dr Seo of Cardiology Last Ate: 7 PM last evening (05/08/2023) [email or web address] Previous issues with sedation: None Snore/Sleep Apnea: yes, uses CPAP Smoker: No Emergent: Yes ASA: 3 Dentures: Yes and remove Time Out: 11:26am on 05/09/23 Time Recovered: 11:33am on 05/09/23 Total time: 7 minutes Written consent was obtained after the risks and benefits were explained to the patient and son, including, but not limited to aspiration, allergic reaction, breathing difficulties, cardiac complications, vomiting, pain, event recall, bleeding, and/or infection. Pre-sedation examination and paperwork completed. The patient was on 100% oxygen via NRB prior to the procedure. Continuos end tidal CO2 monitoring, pulse oximetry, and cardiac monitoring were utilized. Suction, airway equipment, medications, respiratory equipment, and appropriate personnel were prepared prior to the initiation of the procedure. A time out was taken. Sedation was achieved utilizing 40 mg of propofol. After I observed the patient had reached the appropriate level of sedation the main procedure was performed without complication. Sedation was discontinued and the monitoring continued. The patient recovered quickly from the effects of the medication without complication or adverse event. Cezar Butler MD
--- NOTE | 2023-05-09 11:40 | Emergency Department Note ---
Post Sedation Assessment Vital Signs Temp Pulse Pulse Resp BP BP Pulse Ox 05/09/23 06:43 110 H 12 114/86 94 05/09/23 06:30 98 H 116/85 05/09/23 06:00 117 H 28 H 116/85 95 05/09/23 05:31 119 H 15 94 05/09/23 05:05 117 H 16 96 05/09/23 05:00 112 H 22 141/105 H 96 05/09/23 04:54 117 H 05/09/23 04:43 36.8 C 118 H 16 136/93 97 05/09/23 04:43 36.8 C 116 H 16 136/93 96 O2 Del Method 05/09/23 06:43 05/09/23 06:30 05/09/23 06:00 05/09/23 05:31 05/09/23 05:05 Room Air 05/09/23 05:00 05/09/23 04:54 05/09/23 04:43 Room Air 05/09/23 04:43 Room Air Recovery Score Activity: Moves 4 extremities Respiration: Deep Breath/Cough Circulation: +/-20% PreAnes Value Consciousness: Fully Awake Oxygen Saturation: > 92% On Room Air Discharge Sedation Level of Care: Phase I Post Sedation Plan On clinical assessment, the patient appears to have tolerated the sedation without complications. Patient is recovering as anticipated. Patient will continue to be monitored by nursing and may be discharged when sedation discharge criteria are met per below protocol. Upon Completions of procedure up to 15 minutes continue every 5 minute vital signs and the P.A.R. score; then discharge to a Phase I or Fast Track to Phase II per the following guidelines: * Discharge Patient to appropriate Phase II area if PAR is 8 or greater or return to pre- procedure baseline. The post - procedure orders will be as directed. * If PAR score is less than 8 or not return to pre-procedure baseline then patient will follow Phase I monitoring till PAR is reached for Phase II. The Phase I may be done in procedure room or may call to secure a Phase I area. * If naloxone or flumazenil are used for reversal, hold in Phase I for continued monitoring from when last reversal dose was given for a minimum of 60 minutes or longer pending the nurse and/or physician discretion of patient condition before discharge to Phase II. Please call the Sedation Physician to re-evaluate and complete post-note for discharge to Phase II area. Do NOT discharge from procedure sedation or Phase 1 until post- sedation evaluation note is complete by procedure /sedation MD Sedation Discharge Instructions to be given to the patient at discharge to home.
[2023-05-09] MEDS: PROPOFOL IV EMULSION 10 MG/ML 20 ML VIAL IV ONE (11:57)
--- NOTE | 2023-05-09 12:06 | Cardioversion ---
Date of Service May 09, 2023 Electrical Cardioversion Rpt Electrical Cardioversion Report Procedure and risk of synchronized electrical cardioversion discussed in detail with patient, informed consent obtained Formal timeout performed Patient sedated with continuous heart rate blood pressure and oxygen saturation monitoring per ER attending Single synchronized 200 J biphasic shock administered with successful conversion to sinus rhythm Patient aroused post procedure having tolerated well EKG post cardioversion atrial paced rhythm with prolonged AV conduction at 60 bpm, QT corrected 430
--- NOTE | 2023-05-09 15:53 | Discharge Summary ---
Date of Service May 09, 2023 Admission HPI Per Admitting Provider History obtained from patient, family, and records. Medical history significant for for chronic diastolic heart failure (EF 55 to 60%, TTE 2022), paroxysmal AF/atrial flutter sp ablation status post cardioversion on anticoagulation, SSS status post PPM, valvular heart disease (moderate MR/TR), HTN, hyperlipidemia, essential tremors, GERD, TISHA on CPAP Last confinement February 2023 for rapid A-fib/flutter status post cardioversion. Toprol XL increased to 75 mg p.o. twice daily on discharge. Patient felt like she was going to pass out last night. Somewhat weak with transient stomach upset. No chest pain, SOB, palpitations or headache. Compliant with home medications. No unusual stress or exertion. Patient still not feeling well after waking up this morning. EMS summoned to patient's home. Patient noted to be tachycardic. Rapid atrial flutter, heart rate of 110s noted at the ER. IV metoprolol administered at the ER. 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 Admission Exam Per Admitting Provider GENERAL: Comfortable, pleasant, no respiratory distress SKIN: Normal color, warm HEENT: [place] palpebral conjunctivae, no ptosis, dry buccal mucosa NECK : Supple, no tenderness CHEST : CTA, no tenderness HEART : Tachycardic, systolic murmur ABDOMEN: Some distention, no tenderness EXTREMITIES : No LE swelling/tenderness, no other conspicuous deformities noted NEUROLOGIC : Coherent, no facial asymmetry, no other gross focality Principal Diagnosis Atrial flutter with RVR Discharge Exam GENERAL: Comfortable, pleasant, no respiratory distress SKIN: Normal color, warm HEENT: [place] palpebral conjunctivae, no ptosis, moist buccal mucosa NECK : Supple, no tenderness CHEST : CTA, no tenderness HEART : rrr, no murmur/rubs/gallops ABDOMEN: Some distention, no tenderness EXTREMITIES : No LE swelling/tenderness, no other conspicuous deformities noted NEUROLOGIC : Coherent, no facial asymmetry, no other gross focality Discharge Data Allergies Allergy/AdvReac Type Severity Reaction Status Date / Time Penicillins Allergy Unknown RASH Verified 03/09/23 15:19 Consultations 05/09/23 06:04 ED Decision to Admit Stat 05/09/23 08:15 Consult Cardiology Routine Hospital Course (1) Atrial flutter with rapid ventricular response: Per prior attending with addendum: Recurrent atrial flutter hx paroxysmal AF/AFL sp ablation status post cardioversion on anticoagulation SSS status post PPM INR therapeutic chronic diastolic heart failure (EF 55 to 60%, TTE 2022), patient euvolemic valvular heart disease (moderate MR/TR) HTN, BP stable hyperlipidemia, on statin Rx GERD, on PPI TISHA on CPAP Hypomagnesemia OBS PCU Flecainide a.m. dose now to facilitate conversion Titrate home beta-maribell Cardiology consult Re: Recurrent atrial flutter N.p.o. until patient seen by cardiology May need cardioversion if patient does not convert with a.m. flecainide dose Supplement electrolytes, goal serum potassium of at least 4, goal serum magnesium of at least 2 DVT prophylaxis Coumadin INR goal between 2 and 3 Full code Text document was generated using DocDoc voice recognition software. It may contain grammatical or spelling errors. Kindly contact undersigned for clarification of any documentation item in question. Addendum: Patient was seen and examined at bedside as a follow-up of recurrent atrial flutter, atrial flutter with RVR. Labs and imagings reviewed. Discussed with cardiology, patient is status post cardioversion with reversal to sinus rhythm. Plan to increase flecainide dose to 150 mg twice a day, same has been communicated to the patient. Patient to follow-up with cardiology in 2 to 4 weeks time. Patient reports feeling fine and is hemodynamically stable and w ould like to go home. She is being discharged with following instruction at the point of discharge: Follow-up with your primary care physician within a week time and likely you will need labs CBC/CMP/magnesium/phosphorus/EKG. Follow-up with your cardiology in 2 to 4 weeks time. Cardiology evaluated you and your flecainide dose has been increased to 150 mg twice a day. Take your medications as prescribed. Please make sure that you are able to get your medications today by calling your pharmacy before you leave the hospital so that your treatment continuity is not broken. [facility] Attestation I certify that this patient is under my care and that I, or a physicians biology laboratory assistant working with me, had a face to-face encounter that meets the home health utdy-lu-ruek encounter requirements with this patient. The encounter with the patient was in whole, or in part, for the following medical condition, which is the primary reason for home health care (list medical condition): I certify that, based on my findings, the following services are medically necessary home health services: My clinical findings support the need for the above services because: Further, I certify that my clinical findings support that this patient is h omebound (i.e. absences from home require considerable and taxing effort and are for medical reasons or latter-day services or infrequently or of short duration when for other reasons) because: Certification for Home Health Services: Based on the above findings, I certify that this patient is confined to the home and needs intermittent jail care, physical therapy and/or speech therapy or continues to need occupational therapy. The patient is under my care, and I have initiated the establishment of the plan of care. This patient will be followed by a physician who will periodically review the plan of care. Total Time Total Time Spent Total Time Spent (In Minutes): 45 Discharge Plan Discharge Items Patient Disposition: Home - Self-Care Reason For Visit: rapid af Discharge Diagnosis: Atrial flutter with RVR Activity: Resume your previous activity Non-emergency contact: Primary Care Provider Call non-emergency contact if: you have any medication questions, your symptoms worsen and your temperature is above 101 Follow-up/Referrals: Gregory Goodson MD [Primary Care Provider] - Diet: Heart Healthy Addtl Attending Provider Instructions: Follow-up with your primary care physician within a week time and likely you will need labs CBC/CMP/magnesium/phosphorus/EKG. Follow-up with your cardiology in 2 to 4 weeks time. Cardiology evaluated you and your flecainide dose has been increased to 150 mg twice a day. Take your medications as prescribed. Please make sure that you are able to get your medications today by calling your pharmacy before you leave the hospital so that your treatment continuity is not broken. Pending Studies at Discharge: No Stand-Alone Forms: My gogamingo, Smoking Cessation Medications and DC Order Prescriptions: Continued pravastatin 40 mg tablet 40 mg PO HS amlodipine 5 mg tablet 5 mg PO QAM potassium chloride [Klor-Con M10] 10 mEq tablet,ER particles/crystals 10 meq PO QAM lansoprazole [Prevacid] 30 mg capsule,delayed release(DR/EC) 30 mg PO DAILYBB warfarin 2.5 mg tablet 0 mg PO DAILY Rx Instructions: Take 5mg by mouth on Tuesday @1600, and take 2.5mg by mouth /Tue//Tue/Sat/Sun @1600 spironolactone 25 mg tablet 12.5 mg PO Rx Instructions: 12.5mg by mouth on Tue/Tue/Tue calcium carbonate [Calcium 600] 600 mg calcium (1,500 mg) Tablet 600 mg PO DAILY cholecalciferol (vitamin D3) [Vitamin D3] 50 mcg (2,000 unit) Tablet 50 mcg PO DAILY metoprolol succinate 25 mg Tablet Extended Release 24 Hr 75 mg PO BID 30 Days Qty: 180 2RF lisinopril 2.5 mg tablet 2.5 mg PO DAILY Qty: 30 1RF Changed flecainide 100 mg tablet 150 mg PO BID Qty: 90 0RF Discharge Orders: Discharge Order (Routine); Ordered 05/09/23 Ordered By: Donato Chavez Admission Data Admit Date/Time: 05/09/23 06:47 Attending Provider: Donato Chavez Admit Provider: Benny Newby Primary Care Provider: Gregory Goodson Other Providers: Benny Newby; Aye Musa; Anuel Rodriguez; Josef Seo; Sudhir Welsh; Bernardino Betancur; Demarco Suh; Nidhi Vail; Amie Prater; Aye Lara; Mason Joe; Nigel Jones; Aysha Ewing; Genevieve Murphy; Evans Steve George
--- NOTE | 2023-05-09 16:23 | Communication Note ---
Date of Service: May 09, 2023 Pacemaker interrogated and reprogrammed with the help of [employer] rep Patient's presenting rhythm atypical atrial flutter below atrial fibrillation detection rate. Device tracking and pacing with rapid response Pacemaker reprogrammed to increase detection and mode switching. Atrial therapies disabled
[2023-05-09] MEDS ORDERED: PRAVASTATIN SOD 40 MG TAB PO SCH (21:00)
[2023-05-09] MEDS ORDERED: FLECAINIDE ACETATE 100 MG TABLET PO SCH (21:00)
--- NOTE | 2023-05-10 05:59 | Electrocardiogram Report ---
Test Reason : Blood Pressure : / mmHG Vent. Rate : 112 BPM Atrial Rate : 000 BPM P-R Int : 000 ms QRS Dur : 102 ms QT Int : 360 ms P-R-T Axes : 000 -89 098 degrees QTc Int : 491 ms Possible Accelerated Junctional rhythm Left axis deviation Inferior infarct , age undetermined Cannot rule out Anterior infarct , age undetermined Abnormal ECG When compared with ECG of 10-MAR-2023 07:46, Atrial-paced rhythm is no longer Present Confirmed by John Greenfield ([id number]) on 05/10/2023 5:59:33 AM Referred By: REFERRED SELF Confirmed By:John Greenfield
--- NOTE | 2023-05-10 06:05 | Electrocardiogram Report ---
Test Reason : Blood Pressure : / mmHG Vent. Rate : 101 BPM Atrial Rate : 101 BPM P-R Int : 224 ms QRS Dur : 172 ms QT Int : 446 ms P-R-T Axes : 000 116 -56 degrees QTc Int : 578 ms Atrial-sensed ventricular-paced rhythm Abnormal ECG When compared with ECG of 09-MAY-2023 04:40, Electronic ventricular pacemaker has replaced Junctional rhythm Confirmed by John Greenfield ([id number]) on 05/10/2023 6:05:13 AM Referred By: REFERRED SELF Confirmed By:John Greenfield
--- NOTE | 2023-05-10 06:16 | Electrocardiogram Report ---
Test Reason : Blood Pressure : / mmHG Vent. Rate : 060 BPM Atrial Rate : 060 BPM P-R Int : 292 ms QRS Dur : 102 ms QT Int : 436 ms P-R-T Axes : 000 -65 033 degrees QTc Int : 436 ms Atrial-paced rhythm with prolonged AV conduction Left axis deviation Inferior infarct , age undetermined Possible Anterolateral infarct , age undetermined Nonspecific T wave abnormality Abnormal ECG When compared with ECG of 09-MAY-2023 09:38, Electronic atrial pacemaker has replaced Electronic ventricular pacemaker Vent. rate has decreased BY 41 BPM Confirmed by John Greenfield ([id number]) on 05/10/2023 6:16:23 AM Referred By: REFERRED SELF Confirmed By:John Greenfield
== END 2023-05-09 17:24 | disposition home or self-care (01) ==
LOC: ED 04:36 → EDINP 04:36 → SUATTDRO 06:47 → EDINP 08:15

== ENCOUNTER 2023-05-15 19:18 | Inpatient (IN) ==
--- OUTSIDE RECORDS SUMMARY | 2023-05-15 19:26 | External Medical Summary | Summary of Care ---
Author Name Unknown Organization [facility] Address [address] [place] [address] Phone [phone] Care Team Providers Care Production Service Manager Name Role Phone Gregory Goodson MD Primary Care Provide r Reason for Visit * Reason Onset Date Comments Appointment 05/11/2023 [facility] appointment Encounter Details Date Type Department Care Team ([facility] st Contact Info) Description 05/11/2023 Telephone Cardiology, [facility] [address] [place] [address] [facility] [address] [place] [address] Appointment ([facility] appointment ) Allergies Active Allergy Reactions Criticality Noted Date Comments Penicillins 04/04/2000 rash documented as of this encounter (statuses as of 05/11/2023) Medications Medication Sig Dispensed Refills Start Date [...] the morning. 90 Tablet 3 03/14/2023 Active Metoprolol Succinate ER 25 MG Oral [...] once daily 45 Tablet 3 04/21/2023 Active Lisinopril 2.5 MG Oral Tablet (Prinivil)Indicati ons:HTN, goal below 150/90 Take 1 Tablet by mouth in the morning. 90 Tablet 1 05/10/2023 Active documented as of this encounter (statuses as of 05/11/2023) Active Problems Problem Noted Date Diagnosed Date Atrial flutter 03/18/2023 Age-related osteoporosis wit hout current pathological fracture 01/21/2022 Cardiac pacemaker in situ 09/25/2021 Tachy-syed syndrome 09/25/2021 Gastroesophageal reflux disease 06/12/2021 Nonrheumatic aortic valve insufficiency 07/02/20 21 Nonrheumatic mitral valve regurgitation 09/27/19 21 [...] 150/90 01/31/2009 Overview: Modified per HTN Taxonomy. 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 Menopause 01/29/2015 documented as of this encounter (statuses as of 05/11/2023) Immunizations Name Administration Dates Next Due COVID-19 [...] encounter Miscellaneous Notes * Telephone Encounter - Viviana Guadarrama LPN - 05/11/2023 7:49 AM EST [employer] message sent to patient requesting to reschedule 05/18 [facility] appointment to either or 05/26 documented in this encounter Plan of Treatment Upcoming Encounters Date Type Department Care Team (Late st Contact Info) Description 05/16/2023 4:00 PM EST Office Visit Family Medicine [address] [place] [phone] Gregory Goodson MD [address] [place] [address] [place] [id number] 05/18/2023 9:00 AM EST Cardiac Studies Cardiology, [facility] [address] [facility] [place] [address] [place], Pacer [facility] [address] [facility] [place] [address] 05/25/2023 9:30 AM EST Anticoagulation Pharmacy, [address] [place] [address] [place] [address] 05/31/2023 11:00 AM EST Office Visit Cardiology, [facility] [address] [facility] [place] [address] Aye Musa CRNP [address] [facility] [place] [phone] 06/08/2023 3:30 PM EDT Office Visit Cardiology, [facility] [address] [facility] [place] [address] Aysha Ewing PA-C [address] [facility] [place], [place] [id number] 09/19/2023 12:20 PM EDT Office Visit [address] [phone] Ebony Noriega PA-C [address] [place] [address] [place] [phone] 11/03/2023 10:45 AM EDT Office Visit Dermatology [facility] [address] [facility] [place] [address] Buffy De Souza MD [address] [place] [address] 01/12/2024 10:30 AM EDT Office Visit Sleep Disorders Ctr [facility] [address] [facility] [place] [phone] Tari Gardner CRNP [address] [facility] [place] [address] 03/19/2024 1:00 PM EST Office Visit Family [address] [place] [phone] Gregory Goodson MD [address] [place] [address] [place] [id number] Health Maintenance Due Date Last Done Comments [...] D LEVEL ONCE IN A LIFETIME-USE SMARTSET# [id number] Completed 01/20/2022, 04/04/2020, 03/23/2019, Additional history exists [...] this encounter Medical Devices Implanted Type Area Kindergarten Teacher Device Identifier Shelf Expiration Date Model / Serial / Lot Lens Intraoc 22.5 - [id number] - [id number] Implanted:Qty: 1 on 04/15/2022 by Armand Mallory MD at [facility] Right: Eye [employer] 12/25/2026 [id number] / [id number] / [id number] Lens Intraoc 22.5 - [id number] - [id number] Implanted:Qty: 1 on 04/22/2022 by Armand Mallory MD at [facility] Left: Eye [employer] 02/24/2027 [id number] / [id number] / [id number] documented as of this encounter Advance Directives [...] the patient have Health Care Power of [employer] Developer? No Code Status History Code Status Date Activated Date Inactivated Comments No Code 04/15/2022 7:59 AM 04/15/2022 2:36 PM This order reflects the patients wishes and were consensually agreed upon. Question Answer Comments Discussion of Advance Directives occurred with: Patient Does the patient have a Living Will? No Does the patient have Health Care Power of U[employer] U[employer] Developer? No Full Code 03/04/2014 1:13 PM 03/05/2014 2:17 PM This order reflects the patients wishes and were consensually agreed upon. Healthcare Agents on File Name Relationship Healthcare Agent Relationshi p Communication Edu Rony Spouse Health Care Repr esentative (appointed verbally by patient or by statute hierarchy) Care Teams Production Service Manager Relationship Specialty Start Date End Date Gregory Goodson MD [address] [place] [address] [place] [id number] PCP - General Family Medicine 10/23/13 documented as of this encounter
--- OUTSIDE RECORDS SUMMARY | 2023-05-15 19:26 | External Medical Summary | Summary of Care ---
Author Name Unknown Organization [facility] Address [address] [place] [address] Phone [phone] Care Team Providers Care Thermoplastic Technician Name Role Phone Gregory Goodson MD Primary Care Provide r Reason for Visit * Reason Onset Date Comments Medication Refill 05/10/2023 case management 05/10/2023 Encounter Details Date Type Department Care Team (Late st Contact Info) Description 05/10/2023 Refill Family Medicine [address] [phone] Gregory Goodson MD [address] [place] [address] [place] [address] HTN, goal below 150/90 Allergies Active Allergy Reactions Criticality Noted Date Comments Penicillins 04/04/2000 rash documented as of this encounter (statuses as of 05/10/2023) Medications Medication Sig Dispensed Refills Start Date [...] AT BEDTIME 90 Tablet 3 3 Active Warfarin Sodium 2.5 MG Oral Tablet (Coumadin)Indicati ons:Paroxysmal atrial fibrillation (HCC),Anticoagulat ion management encounter,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 of anticoagulant therapy TAKE 2 [...] the morning. 90 Tablet 3 3 Active Metoprolol Succinate ER 25 MG Oral Tablet Extended Release 24 Hour (toPROL XL) Take 3 Tablets by mouth in the morning and 3 Tablets before bedtime. 0 3 Active Flecainide Acetate 100 MG Oral Tablet (Tambocor)Indicati ons:Paroxysmal atrial fibrillation (HCC) Take 1 tablet by mouth twice daily 180 Tablet 3 4 Active Benzonatate 100 MG Oral CapsuleIndications :Bronchitis, complicated Take 1 Capsule by mouth 3 times a day as needed for Cough. 30 Capsule 1 4 Active Spironolactone 25 MG Oral Tablet (Aldactone)Indicat ions:HTN, goal below 140/90,Peripheral edema,Hypokalemia Take 1/2 (one-half) tablet by mouth once daily 45 Tablet 3 4 Active Lisinopril 2.5 MG Oral Tablet (Prinivil)Indicati ons:HTN, goal below 150/90 Take 1 Tablet by mouth in the morning. 90 Tablet 1 4 Active Lisinopril 2.5 MG Oral Tablet (Prinivil)Indicati ons:HTN, goal below 150/90 Take 1 Tablet by mouth in the morning and 1 Tablet before bedtime. 0 3 05/10/19 24 Discontinu ed(Refill) documented as of this encounter (statuses as of 05/10/2023) Active Problems Problem Noted Date Diagnosed Date [...] 150/90 01/31/2009 Overview: Modified per HTN Taxonomy. 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 Menopause 01/29/2015 documented as of this encounter (statuses as of 05/10/2023) Immunizations Name Administration Dates Next Due COVID-19 [...] encounter Miscellaneous Notes * Telephone Encounter - Gregory Goodson MD - 05/10/2023 2:55 PM EST Signed Prescriptions: Disp Refills Lisinopril 2.5 MG Oral Tablet (Prinivil) 90 Tab*1 Sig: Take 1 Tablet by mouth in the morning.Authorizing Provider: GREGORY GOODSON * Telephone Encounter - Gregory Goodson MD - 05/10/2023 2:55 PM EST Signed Prescriptions: Disp Refills Lisinopril 2.5 MG Oral Tablet (Prinivil) 90 Tab*1 Sig: Take 1 Tablet by mouth in the morning.Authorizing Provider: GREGORY GOODSON * Telephone Encounter - Samantha Gonzales RN - 05/10/2023 2:33 PM EST Patient reports she is out of medication. Has been trying to get refilled. Supposedly Musa requested but never heard back? Did you pend patient's preferred pharmacy and medication before forwarding?yes Pharmacy: [facility] [address] [place] [address] [place] [address] Pending Prescriptions: Disp Refills Lisinopril 2.5 MG Oral Tablet (Prinivil) 180 Ta*1 Sig: Take 1 Tablet by mouth in the morning. Last Visit: 04/06/2023 (in office), Visit date not found (telemedicine) Next Visit: 05/16/2023 If no future appointments scheduled, and last appointment is greater than a year ago, please schedule patient for a follow-up appointment Last date the medication was ordered: 03/11/23 (30 day supply) Is this request for a controlled substance?No [...] 4:00 PM EST Office Visit Family Medicine [address] [place] [phone] Gregory Goodson MD [address] [place] [address] [place] [address] 05/18/2023 9:00 AM EST Cardiac Studies Cardiology, [address] [place] [address] [place], Pacer [address] [place] [address] 05/25/2023 9:30 AM EST Anticoagulation Pharmacy, [address] [place] [address] [place] [address] 05/31/2023 11:00 AM EST Office Visit Cardiology, [address] [place] [address] Aye Musa CRNP [address] [place] [address] [place] [phone] 06/08/2023 3:30 PM EDT Office Visit Cardiology, [address] [place] [address] Aysha Ewing PA-C [address] [place] [address] [place] [address] 09/19/2023 12:20 PM EDT Office Visit [address] [place] [phone] Ebony Noriega PA-C [address] [place] [address] [place] [address] 11/03/2023 10:45 AM EDT Office Visit Dermatology [facility] [place] [address] Buffy De Souza MD [address] [facility] [place] [address] 01/12/2024 10:30 AM EDT Office Visit Sleep Disorders Ctr [facility] [address] [place] [phone] Tari Gardner CRNP [address] [place] [address] 03/19/2024 1:00 PM EST Office Visit [address] [place] [phone] Gregory Goodson MD [address] [place] [address] [place] [address] Health Maintenance Due Date Last Done Comments [...] D LEVEL ONCE IN A LIFETIME-USE SMARTSET# [id number] Completed 01/20/2022, 04/04/2020, 03/23/2019, Additional history exists [...] this encounter Medical Devices Implanted Type Area Type Copyist Device Identifier Shelf Expiration Date Model / Serial / Lot Lens Intraoc 22.5 - [id number] - [id number] Implanted:Qty: 1 on 04/15/2022 by Armand Mallory MD at OR [facility] Right: Eye [employer] 12/25/2026 [id number] / [id number] / [id number] Lens Intraoc 22.5 - [id number] - [id number] Implanted:Qty: 1 on 04/22/2022 by Armand Mallory MD at OR [facility] Left: Eye [employer]OM[employer] 02/24/2027 [id number] / [id number] / [id number] documented as of this encounter Visit Diagnoses [...] the patient have Health Care Power of Oil Speculator? No Code Status History Code Status Date Activated Date Inactivated Comments No Code 04/15/2022 7:59 AM 04/15/2022 2:36 PM This order reflects the patients wishes and were consensually agreed upon. Question Answer Comments Discussion of Advance Directives occurred with: Patient Does the patient have a Living Will? No Does the patient have Health Care Power of Oil Speculator? No Full Code 03/04/2014 1:13 PM 03/05/2014 2:17 PM This order reflects the patients wishes and were consensually agreed upon. Healthcare Agents on File Name Relationship Healthcare Agent Relationshi p Communication Edu Rony Spouse Health Care Repr esentative (appointed verbally by patient or by statute hierarchy) Care Teams Thermoplastic Technician Relationship Specialty Start Date End Date Gregory Goodson MD [address] [place] [address] [place] [address] PCP - General Family Medicine 10/23/13 documented as of this encounter
--- OUTSIDE RECORDS SUMMARY | 2023-05-15 19:26 | External Medical Summary | Summary of Care ---
Author Name Unknown Organization [facility] Address [address] [place] [address] Phone [phone] Care Team Providers Care Compensation Adjuster Name Role Phone Gregory Goodson MD Primary Care Provide r Reason for Visit * Reason Onset Date Comments Medication Refill 05/10/2023 case management 05/10/2023 Encounter Details Date Type Department Care Team (Late st Contact Info) Description 05/10/2023 Refill Family Medicine [address] [phone] Gregory Goodson MD [address] [place] [address] [place] [address] HTN, goal below 150/90 Allergies [...] (Coumadin)Indicati ons:Paroxysmal atrial fibrillation (HCC),Anticoagulat ion management encounter,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 1 04/03/2005 [...] BID then 100mg BID(uptitrated spring 2013) plus pfqb-qa-wgs-pocket Well controlled until 01/2014 Admission 01/30- for rapid AF-> changed to sotalol -> admission 02/05 -> changed to amiodarone AMiodarone 400mg QD On warfarin group home ([id number]=OME,QFH11-47,FEMALE=3) July 2013 Echo EF 60% mod LA [...] medication before forwarding?yes Pharmacy: [facility] [address] [place] [address] [place] [address] Pending Prescriptions: Disp Refills Lisinopril 2.5 MG [...] 4:00 PM EST Office Visit Family Medicine [address] [place] [phone] Gregory Goodson MD [address] [place] [address] [place] [address] 05/18/2023 9:00 AM EST Cardiac Studies Cardiology, [address] [place] [address] [place], Pacer [address] [place] [address] 05/25/2023 9:30 AM EST Anticoagulation Pharmacy, [address] [place] [address] [place] [address] 05/31/2023 11:00 AM EST Office Visit Cardiology, [address] [place] [address] Aye Musa CRNP [address] [place] [address] [place] [phone] 06/08/2023 3:30 PM EDT Office Visit Cardiology, [address] [place] [address] Aysha Ewing PA-C [address] [place] [address] [place] [address] 09/19/2023 12:20 PM EDT Office Visit [address] [place] [phone] Ebony Noriega PA-C [address] [place] [address] [place] [address] 11/03/2023 10:45 AM EDT Office Visit Dermatology [facility] [place] [address] Buffy De Sozua MD [address] [facility] [place] [address] 01/12/2024 10:30 AM EDT Office Visit Sleep Disorders Ctr [facility] [address] [place] [phone] Tari Gardner CRNP [address] [place] [address] 03/19/2024 1:00 PM EST Office Visit [address] [place] [phone] Gregory Goodson MD [address] [place] [address] [place] [address] Health Maintenance Due Date Last Done Comments [...] D LEVEL ONCE IN A LIFETIME-USE SMARTSET# [id number] Completed 01/20/2022, 04/04/2020, 03/23/2019, Additional history exists [...] this encounter Medical Devices Implanted Type Area Spiritual Advisor Device Identifier Shelf Expiration Date Model / Serial / Lot Lens Intraoc 22.5 - [id number] - [id number] Implanted:Qty: 1 on 04/15/2022 by Armand Mallory MD at OR [facility] Right: Eye [employer] 12/25/2026 [id number] / [id number] / [id number] Lens Intraoc 22.5 - [id number] - [id number] Implanted:Qty: 1 on 04/22/2022 by Armand Mallory MD at OR [facility] Left: Eye [employer] 02/24/2027 [id number] / [id number] / [id number] documented as of this encounter Visit Diagnoses [...] the patient have Health Care Power of Web Production Manager? No Code Status History Code Status Date Activated Date Inactivated Comments No Code 04/15/2022 7:59 AM 04/15/2022 2:36 PM This order reflects the patients wishes and were consensually agreed upon. Question Answer Comments Discussion of Advance Directives occurred with: Patient Does the patient have a Living Will? No Does the patient have Health Care Power of Web Production Manager? No Full Code 03/04/2014 1:13 PM 03/05/2014 2:17 PM This order reflects the patients wishes and were consensually agreed upon. Healthcare Agents on File Name Relationship Healthcare Agent Relationshi p Communication Edu Royn Spouse Health Care Repr esentative (appointed verbally by patient or by statute hierarchy) Care Teams Compensation Adjuster Relationship Specialty Start Date End Date Gregory Goodson MD [address] [place] [address] [place] [address] PCP - General Family Medicine 10/23/13 documented as of this encounter
--- OUTSIDE RECORDS SUMMARY | 2023-05-15 19:26 | External Medical Summary | Summary of Care ---
Author Name Unknown Organization [facility] Address [address] [place] [address] Phone [phone] Care Team Providers Care Pals Specialist Name Role Phone Gregory Goodson MD Primary Care Provide r Encounter Details Date Type Department Care Team (Late st Contact Info) Description 05/09/2023 Result Scan Unspecified Department <No scans attached> Allergies Active Allergy Reactions Criticality Noted Date [...] (Coumadin)Indicati ons:Paroxysmal atrial fibrillation (HCC),Anticoagulat ion management encounter,care home current use of anticoagulant therapy TAKE 2 [...] 01/31/2009 Overview: Modified per HTN Taxonomy. 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 ([id number]=EWC,EOK62-85,FEMALE=3) July 2013 Echo EF 60% mod LA enlargement 1+ MR, 1+ TR Pulmonary Vein Isolation (RF) 02/2014 AMiodarone discontinued 03/2014 for abdominal discomfort Abnormal mammogram 01/29/2003 BENIGN HYPERTENSION 02/01/20 09 Overview: Modified per [...] 4:00 PM EST Office Visit Family Medicine [address] [place] [phone] Gregory Goodson MD [address] [place] [address] [place] [address] 05/18/2023 9:00 AM EST Cardiac Studies Cardiology, [address] [place] [address] Jackie Pacer [address] [place] [address] 05/25/2023 9:30 AM EST Anticoagulation Pharmacy, [address] [place] [address] [place] [address] 05/31/2023 11:00 AM EST Office Visit Cardiology, [facility] [place] [address] Aye Musa CRNP [address] [place] [place] [phone] 06/08/2023 3:30 PM EDT Office Visit Cardiology, [facility] [address] [facility] [place] [address] Aysha Ewing PA-C [address] [place] [address] 09/19/2023 12:20 PM EDT Office Visit Family [address] [phone] Ebony Noriega PA-C [address] [place] [address] [place] [address] 11/03/2023 10:45 AM EDT Office Visit Dermatology [facility] [address] [facility] [place] [address] Buffy De Souza MD [address] [facility] [place] [address] 01/12/2024 10:30 AM EDT Office Visit Sleep Disorders Ctr [facility] [address] [place] [phone] Tari Gardner CRNP [address] [place] [address] 03/19/2024 1:00 PM EST Office Visit Family [address] [place] [phone] Gregory Goodson MD [address] [place] [address] [place] [address] Health Maintenance Due Date Last Done Comments [...] D LEVEL ONCE IN A LIFETIME-USE SMARTSET# [id number] Completed 01/20/2022, 04/04/2020, 03/23/2019, Additional history exists [...] this encounter Medical Devices Implanted Type Area Bell Tier Device Identifier Shelf Expiration Date Model / Serial / Lot Lens Intraoc 22.5 - [id number] - [id number] Implanted:Qty: 1 on 04/15/2022 by Armand Mallory MD at OR [facility] Right: Eye [employer] 12/25/2026 [id number] / [id number] / [id number] Lens Intraoc 22.5 - [id number] - [id number] Implanted:Qty: 1 on 04/22/2022 by Armand Mallory MD at OR [facility] Left: Eye [employer]OM[employer] 02/24/2027 [id number] / [id number] / [id number] documented as of this encounter Procedures Procedure Name Priority Date/Time Associated Diagnosis Comments CARDIOLOGY SCANNED RESULT 05/09/2023 documented in this encounter Results * CARDIOLOGY SCANNED RESULT (05/09/2023) 05/09/2023 No Physician Data Unknown OTHER documented in this encounter Advance Directives Latest Code Status on File Code Status Date Activated Date Inactivated Comments No Code 04/22/2022 8:35 AM 04/22/2022 2:59 PM This order reflects the patients wishes and were consensually agreed upon. Question Answer Comments Discussion of Advance Directives occurred with: Patient Does the patient have a Living Will? No Does the patient have Health Care Power of Shredding Specialist? No Code Status History Code Status Date Activated Date Inactivated Comments No Code 04/15/2022 7:59 AM 04/15/2022 2:36 PM This order reflects the patients wishes and were consensually agreed upon. Question Answer Comments Discussion of Advance Directives occurred with: Patient Does the patient have a Living Will? No Does the patient have Health Care Power of Shredding Specialist? No Full Code 03/04/2014 1:13 PM 03/05/2014 2:17 PM This order reflects the patients wishes and were consensually agreed upon. Healthcare Agents on File Name Relationship Healthcare Agent Relationshi p Communication [place] Rony Spouse Health Care Repr esentative (appointed verbally by patient or by statute hierarchy) Care Teams Pals Specialist Relationship Specialty Start Date End Date Gregory Goodson MD [address] [place] [address] [place] [address] PCP - General Family Medicine 10/23/13 documented as of this encounter
[2023-05-15 20:02] LABS: Basophils # (auto) 0.03 K/uL (0.00-0.20); Basophils % (auto) 0.5 %; Eosinophils # (auto) 0.06 K/uL (0.00-0.50); Hematocrit (blood only) 42.4 % (37.0-47.0); Hemoglobin 14.2 g/dl (12.0-16.0); Immature Granulocytes # (auto) 0.02 K/uL (0.01-0.20); Immature Granulocytes % (auto) 0.3 %; Lymphocytes # (auto) 1.15 K/uL (1.20-3.40); Lymphocytes % (auto) 18.5 %; Mean Corpuscular Hemoglobin 29.8 pg (25.0-34.0); Mean Corpuscular Hgb Conc 33.5 g/dL (32.0-36.0); Mean Corpuscular Volume 88.9 fL (80.0-100.0); Mean Platelet Volume 10.8 fL (9.4-12.4); Monocytes # (auto) 0.36 K/uL (0.11-0.59); Monocytes % (auto) 5.8 %; Neutrophils # (auto) 4.61 K/uL (1.40-6.50); Neutrophils % (auto) 73.9 %; Platelet Count 217 K/uL (130-400); RDW Coefficient of Variation 13.8 % (11.5-14.5); RDW Standard Deviation 44.9 fL (36.4-46.3); Red Blood Count 4.77 M/uL (4.20-5.40); White Blood Count 6.23 K/ul (4.8-10.8)
--- NOTE | 2023-05-15 20:02 | Emergency Department Note ---
Impression & Plan Heart palpitations ED Provider Note HISTORY OF PRESENT ILLNESS: Patient is an 82-year-old female presenting with palpitations. Patient reports she got up to make some sandwiches when she felt like her heart was racing and she became very short of breath. She has a history of A-fib and is on Coumadin. Her flecainide was just recently increased from 100 mg to 150 mg five days ago. No reported fevers. Denies any chest pain with the episode. Family called 911 because patient's blood pressure was slightly hypotensive with the episode. On arrival to the ER, the patient reports that it feels like her palpitations have improved. Denies any lightheadedness or dizziness. She reports feeling generally unwell since her cardioversion a few days ago. ROS: as above PHYSICAL EXAM: Constitutional: Patient appears in no acute distress. HENT: Head: Normocephalic and atraumatic. Eyes: EOMI, PERRL Mouth/Throat: Mucous membranes moist. Neck: Trachea midline. Neck supple. Cardiovascular: Irregular rhythm. No murmurs, rubs or gallops. Intact distal pulses. Pulmonary/Chest: No respiratory distress. Breath sounds clear and equal bilaterally. No wheezes or rales. Abdominal: Abdomen soft, no tenderness, rebound or guarding. Musculoskeletal: No edema, tenderness or deformity noted. Skin: Warm and dry. No rash, erythema, pallor or cyanosis Psychiatric: Appropriate mood and affect for situation. Neurological: Alert and keenly responsive. CN II-XII grossly intact, moving all extremities equally and fully. MDM: - Vitals signs showed borderline tachycardia - History obtained via patient. Patient presents with palpitations. Patient reports that she was getting up into the kitchen today when she felt like her heart was racing she became very short of breath. Reports a history of A-fib and is on Coumadin. Her flecainide dosing was recently increased earlier this week. No reported fevers. Denies any chest pain with the episode. Family called 911 because they were concerned with her elevated heart rate and her blood pressure being low and her symptoms. On arrival to the ER, the patient reports her palpitations have slightly improved. Denies any lightheadedness or dizziness - Chronic conditions affecting care: tachy-syed syndrome; HTN; CKD; Afib - Differential diagnoses include, but are not limited to: dysrhythmia; ACS; pneumonia; electrolyte abnormality; dehydration - Order placed for continuous cardiac monitoring. At this time, monitor showed rate of 100 bpm with regular rhythm, per my interpretation. - External medical records reviewed. Communication report reviewed from 05/09/2023. Cardiology interrogated the patient's pacemaker during her recent visit to the ER with cardioversion. Her presenting rhythm was atypical atrial flutter - EKG interpreted by myself showed normal sinus rhythm. Rate 96 bpm. QT 396. No acute ischemic changes. Noted to have a right bundle branch block - Laboratory workup interpreted by myself showed normal WBC; stable electrolytes; normal troponin - VBG grossly unremarkable - CXR negative for pneumonia, per my interpretation - Discussed results with patient. Repeat EKG grossly unchanged. Discussed different from the hospital, however the patient reports she has been feeling generally unwell since her discharge from the ER after being cardioverted earlier this week. She expresses concern about going home and does not feel comfortable with that plan. She is concerned about her recurrent palpitations and does not have a follow-up cardiology appointment for few weeks - Discussion was had with palliative care physician about patient's case and need for admission - Hospitalist consulted for admission - [facility]. ASSESSMENT AND PLAN: Diagnosis: heart palpitations Plan: admit Past Med/Surg History Medical History Tachy-syed syndrome History of pacemaker Pacemaker HLD (hyperlipidemia) FEDERICO (acute kidney injury) Weakness Shortness of breath Hiatal hernia Upper GI bleed Compression fracture of T11 vertebra HTN (hypertension) Atrial fibrillation Obstructive sleep apnea CKD (chronic kidney disease) stage 3, GFR 30-59 ml/min GERD (gastroesophageal reflux disease) Surgical History S/P cholecystectomy Family History Other Diabetes Hypertension Social History Smoking Status: Never smoker Second Hand Exposure: No; Do You Dip or Chew Tobacco: No; Hx Alcohol Use: No Hx Substance Use: No Preferred Language: [place] Communication Ability: Effective Visual Impairment: No Limitations Hearing Ability: Normal Weather Strip Installer Required: No Beliefs That Will Affect Care: None Current Living Situation: Spouse Current Living Situation Comment: LIVES WITH Feels Safe at Home: Yes Assistive Devices: None Allergies Allergies Allergy/AdvReac Type Severity Reaction Status Date / Time Penicillins Allergy Unknown RASH Verified 03/09/23 15:19 Home Meds Home Medications Medication Instructions Recorded Confirmed amlodipine 5 mg tablet 5 mg PO QAM 05/29/18 05/09/23 pravastatin 40 mg tablet 40 mg PO HS 05/29/18 05/09/23 potassium chloride 10 mEq 10 meq PO QAM 06/05/18 05/09/23 tablet,extended release(part/cryst) (Klor-Con M) lansoprazole 30 mg capsule,delayed 30 mg PO DAILYBB 04/10/21 05/09/23 release (Prevacid) spironolactone 25 mg tablet 12.5 mg PO MOWEFR 09/05/21 05/09/23 warfarin 2.5 mg tablet 0 mg PO DAILY 09/05/21 05/09/23 calcium carbonate 600 mg calcium 600 mg PO DAILY 09/06/21 05/09/23 (1,500 mg) tablet (Calcium) cholecalciferol (vitamin D3) 50 50 mcg PO DAILY 09/06/21 05/09/23 mcg (2,000 unit) tablet (Vitamin D3) Previous Rx's Medication Instructions Recorded lisinopril 2.5 mg tablet 2.5 mg PO DAILY #30 tabs 03/11/23 metoprolol succinate 25 mg 75 mg (3 x 25 mg) PO BID 30 days 03/11/23 tablet,extended release 24 hr #180 tabs flecainide 100 mg tablet 150 mg (1.5 x 100 mg) PO BID #90 05/09/23 tabs Results & Data (ED) Vital Signs Vital Signs - 24 hr 05/15/23 19:36 05/15/23 19:37 05/15/23 19:44 Temperature 37.2 C Temperature Source Oral Pulse Rate 95 H 95 H 96 H Pulse Rate from SpO2 Sensor 95 H Respiratory Rate 23 20 Blood Pressure 139/88 Blood Pressure Mean 105 Pulse Oximetry 96 95 Oxygen Delivery Method Room Air Sepsis Recent Fever Within 48 Hours No Sepsis New/Unexplained Change in Mental Status No Sepsis Action Taken by Nursing No Action Required 05/15/23 20:00 05/15/23 20:30 05/15/23 21:00 Temperature Temperature Source Pulse Rate 101 H 103 H 104 H Pulse Rate from SpO2 Sensor 102 H 104 H 105 H Respiratory Rate 22 22 26 H Blood Pressure Blood Pressure Mean Pulse Oximetry 98 97 95 Oxygen Delivery Method Sepsis Recent Fever Within 48 Hours Sepsis New/Unexplained Change in Mental Status Sepsis Action Taken by Nursing 05/15/23 21:18 05/15/23 21:18 Temperature Temperature Source Pulse Rate 103 H Pulse Rate from SpO2 Sensor 104 H Respiratory Rate 24 Blood Pressure 127/96 Blood Pressure Mean 109 Pulse Oximetry 94 Oxygen Delivery Method Sepsis Recent Fever Within 48 Hours Sepsis New/Unexplained Change in Mental Status Sepsis Action Taken by Nursing Laboratory Data 05/15/23 19:41 05/15/23 19:41 Lab Results 05/15/23 05/15/23 Range/Units 19:41 21:07 WBC 6.23 (4.8-10.8) K/ul RBC 4.77 (4.20-5.40) M/uL Hgb 14.2 (12.0-16.0) g/dl Hct 42.4 (37.0-47.0) % MCV 88.9 (80.0-100.0) fL MCH 29.8 (25.0-34.0) pg MCHC 33.5 (32.0-36.0) g/dL RDW Std Deviation 44.9 (36.4-46.3) fL RDW Coeff of Kenrick 13.8 (11.5-14.5) % Plt Count 217 (130-400) K/uL MPV 10.8 (9.4-12.4) fL Immature Gran % (Auto) 0.3 % Neut % (Auto) 73.9 % Lymph % (Auto) 18.5 % [place] % (Auto) 5.8 % Eos % (Auto) 1.0 % Baso % (Auto) 0.5 % Neut # (Auto) 4.61 (1.40-6.50) K/uL Lymph # (Auto) 1.15 L (1.20-3.40) K/uL [place] # (Auto) 0.36 (0.11-0.59) K/uL Eos # (Auto) 0.06 (0.00-0.50) K/uL Baso # (Auto) 0.03 (0.00-0.20) K/uL Immature Gran # (Auto) 0.02 (0.01-0.20) K/uL PT 26.9 H (9.0-12.0) Seconds INR 2.6 H (0.9-1.1) VBG pH 7.43 H (7.36-7.41) VBG pCO2 44 (38-50) mmHg VBG pO2 31 mmHg VBG HCO3 29 mmol/L VBG O2 Saturation < 60.0 % VBG Base Excess 4.2 mEq/L Sodium 136 (136-145) mmol/L Potassium 4.1 (3.5-5.1) mmol/L Chloride 102 (98-107) mmol/L Carbon Dioxide 27 (21-32) mmol/L Anion Gap 7 (3-11) BUN 20 (6-23) mg/dl Creatinine 1.16 (0.6-1.2) mg/dl Est Cr Clr Drug Dosing 34.8 ml/min Est GFR ( Amer) 51.5 ml/min Est GFR (Non-Af Amer) 44.4 ml/min BUN/Creatinine Ratio 17.2 (10-20) Glucose 137 H (70-99(Fasting)) mg/dl Calcium 9.4 (8.6-10.3) mg/dl Magnesium 2.0 (1.7-2.4) mg/dl Total Bilirubin 1.4 H (0.2-1.0) mg/dl AST 19 (13-39) U/L ALT 12 (7-52) U/L Alkaline Phosphatase 35 (34-104) U/L Troponin I High Sens 4.8 (0-14) pg/ml Total Protein 6.8 (6.0-8.3) gm/dl Albumin 3.9 (3.4-5.0) gm/dl Globulin 2.9 (2.5-4.0) gm/dl Albumin/Globulin Ratio 1.3 (0.9-2) Discharge Plan Visit Data Chief Complaint: Arrhythmia/Palpitations Stated Complaint: PALPATATIONS, SHORT OF BREATH ED Provider: Su Herring Discharge Problem: Heart palpitations Forms Stand Alone Forms: My [facility] Prescriptions Prescriptions: No Action pravastatin 40 mg tablet 40 mg PO HS amlodipine 5 mg tablet 5 mg PO QAM potassium chloride [Klor-Con M10] 10 mEq tablet,ER particles/crystals 10 meq PO QAM lansoprazole [Prevacid] 30 mg capsule,delayed release(DR/EC) 30 mg PO DAILYBB warfarin 2.5 mg tablet 0 mg PO DAILY Rx Instructions: Take 5mg by mouth on Tuesday @1600, and take 2.5mg by mouth /Tue//Tue/Sat/Sun @1600 spironolactone 25 mg tablet 12.5 mg PO Rx Instructions: 12.5mg by mouth on Tue/Tue/Tue calcium carbonate [Calcium 600] 600 mg calcium (1,500 mg) Tablet 600 mg PO DAILY cholecalciferol (vitamin D3) [Vitamin D3] 50 mcg (2,000 unit) Tablet 50 mcg PO DAILY metoprolol succinate 25 mg Tablet Extended Release 24 Hr 75 mg PO BID 30 Days Qty: 180 2RF lisinopril 2.5 mg tablet 2.5 mg PO DAILY Qty: 30 1RF flecainide 100 mg tablet 150 mg PO BID Qty: 90 0RF Referrals Referrals: Gregory Goodson MD [Primary Care Provider] -
[2023-05-15 20:18] LABS: Albumin Globulin Ratio 1.3 (0.9-2); Albumin Level 3.9 gm/dl (3.4-5.0); BUN Creatinine Ratio 17.2 (10-20); Bilirubin,Total 1.4 mg/dl (0.2-1.0); Calcium 9.4 mg/dl (8.6-10.3); Creatinine Clr Calc Pharmacy 34.8 ml/min; Est GFR (African American) 51.5 ml/min; Est GFR (Non-African American) 44.4 ml/min; Globulin 2.9 gm/dl (2.5-4.0); Potassium 4.1 mmol/L (3.5-5.1); Total Protein 6.8 gm/dl (6.0-8.3)
[2023-05-15 20:23] LABS: Troponin I High Sensitivity 4.8 pg/ml (0-14)
[2023-05-15 20:27] LABS: INR 2.6 (0.9-1.1); Prothrombin Time 26.9 Seconds (9.0-12.0)
[2023-05-15 21:21] LABS: Base Excess VBG 4.2 mEq/L; HCO3 VBG 29 mmol/L; Oxygen Saturation VBG < 60.0 %; PCO2 VBG 44 mmHg (38-50); PO2 VBG 31 mmHg; pH VBG 7.43 (7.36-7.41)
[2023-05-15] MEDS: SODIUM CHLORIDE 0.9% 500 ML IV ONE (21:47)
[2023-05-15 22:12] LABS: Adenovirus PCR Not Detected (NotDetected); Bordetella parapertussis PCR Not Detected (NotDetected); Bordetella pertussis PCR Not Detected (NotDetected); Chlamydia pneumoniae PCR Not Detected (NotDetected); Coronavirus 229E PCR Not Detected (NotDetected); Coronavirus CoV-2 (COVID19)PCR Not Detected (NotDetected); Coronavirus HKU1 PCR Not Detected (NotDetected); Coronavirus NL63 PCR Not Detected (NotDetected); Coronavirus OC43PCR Not Detected (NotDetected); Human Metapneumovirus PCR Not Detected (NotDetected); Influenza A PCR Not Detected (NotDetected); Influenza B PCR Not Detected (NotDetected); Mycoplasma pneumoniae PCR Not Detected (NotDetected); Parainfluenza Virus 1 PCR Not Detected (NotDetected); Parainfluenza Virus 2 PCR Not Detected (NotDetected); Parainfluenza Virus 3 PCR Not Detected (NotDetected); Parainfluenza Virus 4 PCR Not Detected (NotDetected); Respiratory Syncytial VirusPCR Not Detected (NotDetected); Rhinovirus/Enterovirus PCR Not Detected (NotDetected)
--- NOTE | 2023-05-16 00:41 | History & Physical Report ---
Date of Service May 16, 2023 Assessment & Plan (1) Heart palpitations: Plan: 82-year-old female with past med history significant for hyperlipidemia, sleep apnea, paroxysmal atrial fibrillation, tachybradycardia syndrome, s/p pacemaker, hypertension, nonrheumatic aortic valve insufficiency, nonrheumatic mitral valve regurgitation, GERD, osteoporosis, essential tremor, history of GI bleed, who lives at her home with her comes because of palpitations. Patient was recently in the hospital for recurrent atrial flutter s/p cardioversion and flecainide dose was increased. Last few days she is feeling washed out and tired. Appetite is down. Today while in the kitchen she had episode of palpitations and dizziness which prompted her to come to the ER. In the ER her heart rates are okay. Denies any chest pain. Vision is not great and supposed to see ophthalmology next week. No runny nose or sore throat or cough. No fevers. No chest pains. No nausea. No abdominal pain. Normal bowel and bladder movements. Currently hemodynamics are stable. Heart palpitations History of atrial fibrillation and a flutter Recently s/p cardioversion Currently heart rate seems okay Continue home metoprolol succinate and flecainide Continue Coumadin Monitor INR Closely monitor telemetry N.p.o. for now Consult cardiology in a.m. Tachybradycardia syndrome s/p pacemaker Sleep apnea CPAP nightly Hyperlipidemia On statin Hypertension On lisinopril, metoprolol succinate and amlodipine Will monitor GERD On Prevacid Chronic diastolic CHF On spironolactone Will monitor DVT prophylaxis SCDs Monitor INR Disposition Telemetry Full code History of Present Illness Chief Complaint: Palpitations Primary Care Provider: Gregory Goodson MD 82-year-old female with past med history significant for hyperlipidemia, sleep apnea, paroxysmal atrial fibrillation, tachybradycardia syndrome, s/p pacemaker, hypertension, nonrheumatic aortic valve insufficiency, nonrheumatic mitral valve regurgitation, GERD, osteoporosis, essential tremor, history of GI bleed, who lives at her home with her comes because of palpitations. Patient was recently in the hospital for recurrent atrial flutter s/p cardioversion and flecainide dose was increased. Last few days she is feeling washed out and tired. Appetite is down. Today while in the kitchen she had episode of palpitations and dizziness which prompted her to come to the ER. In the ER her heart rates are okay. Denies any chest pain. Vision is not great and supposed to see ophthalmology next week. No runny nose or sore throat or cough. No fevers. No chest pains. No nausea. No abdominal pain. Normal bowel and bladder movements. Currently hemodynamics are stable. Past medical history. As mentioned above Past surgical history. Colonoscopy or EGD. Pulmonary vein isolation. Left knee arthroscopy. Laparoscopic cholecystectomy. S/p pacemaker. Bilateral cataract surgery. Right hip fracture fixation. Social history. . No smoking. No alcohol use. No drug use. Family history. Mother had diabetes. Hypertension. Father had emphysema. Sister had hypertension. Allergies Allergy/AdvReac Type Severity Reaction Status Date / Time Penicillins Allergy Unknown RASH Verified 05/16/23 00:17 Home Medications Medication Instructions Recorded Confirmed Type amlodipine 5 mg tablet 5 mg PO QAM 05/29/18 05/16/23 History pravastatin 40 mg tablet 40 mg PO HS 05/29/18 05/16/23 History potassium chloride 10 mEq 10 meq PO QAM 06/05/18 05/16/23 History tablet,extended release(part/cryst) (Klor-Con M) lansoprazole 30 mg capsule,delayed 30 mg PO DAILYBB 04/10/21 05/16/23 History release (Prevacid) spironolactone 25 mg tablet 12.5 mg PO MOWEFR 09/05/21 05/16/23 History warfarin 2.5 mg tablet 0 mg PO DAILY 09/05/21 05/16/23 History calcium carbonate 600 mg calcium 600 mg PO DAILY 09/06/21 05/16/23 History (1,500 mg) tablet (Calcium) cholecalciferol (vitamin D3) 50 50 mcg PO DAILY 09/06/21 05/16/23 History mcg (2,000 unit) tablet (Vitamin D3) lisinopril 2.5 mg tablet 2.5 mg PO DAILY #30 tabs 03/11/23 05/16/23 Rx metoprolol succinate 25 mg 75 mg (3 x 25 mg) PO BID 30 days 03/11/23 05/16/23 Rx tablet,extended release 24 hr #180 tabs flecainide 100 mg tablet 150 mg (1.5 x 100 mg) PO BID #90 05/09/23 05/16/23 Rx tabs Past Med/Surg History Medical History Tachy-syed syndrome History of pacemaker Pacemaker HLD (hyperlipidemia) FEDERICO (acute kidney injury) Weakness Shortness of breath Hiatal hernia Upper GI bleed Compression fracture of T11 vertebra HTN (hypertension) Atrial fibrillation Obstructive sleep apnea CKD (chronic kidney disease) stage 3, GFR 30-59 ml/min GERD (gastroesophageal reflux disease) Surgical History S/P cholecystectomy Family History Other Diabetes Hypertension Social History Smoking Status: Never smoker Second Hand Exposure: No; Do You Dip or Chew Tobacco: No; Hx Alcohol Use: No Hx Substance Use: No Preferred Language: [place] Communication Ability: Effective Visual Impairment: No Limitations Hearing Ability: Normal Assistant Account Executive Required: No Beliefs That Will Affect Care: None Current Living Situation: Spouse Current Living Situation Comment: LIVES WITH Feels Safe at Home: Yes Assistive Devices: None Review of Systems Review of Systems: All systems reviewed & are unremarkable except as noted in HPI & below Physical Exam Physical Exam: General- Not in distress. Head- atraumatic Eyes- PERRL. ENT- oropharynx clear Neck- supple, no JVD. Lungs- clear to auscultation no wheezing or crackles. Heart- irregular rhythm; no murmur, no gallop. Abdomen- normal bowel sounds, soft, nontender, no distension. Extremities- no pretibial edema, no erythema seen. Neuro- alert, oriented PERRL, no facial palsy; no dysarthria; moves extremities. Skin- warm & dry Results & Data Results & Data Vital Signs (Past 12 Hours) Vital Signs Temp Pulse Resp BP Pulse Ox O2 Del Method 05/15/23 23:00 104 H 21 95 05/15/23 22:53 103 H 18 96 05/15/23 22:53 121/88 05/15/23 22:30 101 H 26 H 95 05/15/23 22:00 100 H 20 97 05/15/23 21:30 104 H 25 H 05/15/23 21:18 103 H 24 94 05/15/23 21:18 127/96 05/15/23 21:00 104 H 26 H 95 05/15/23 20:30 103 H 22 97 05/15/23 20:00 101 H 22 98 05/15/23 19:44 37.2 C 96 H 20 139/88 95 Room Air 05/15/23 19:37 95 H 23 96 05/15/23 19:36 95 H Diagnostic Findings Laboratory Results WBC 6.23 K/ul (4.8-10.8) 05/15/23 19:41 RBC 4.77 M/uL (4.20-5.40) 05/15/23 19:41 Hgb 14.2 g/dl (12.0-16.0) 05/15/23 19:41 Hct 42.4 % (37.0-47.0) 05/15/23 19:41 MCV 88.9 fL (80.0-100.0) 05/15/23 19:41 MCH 29.8 pg (25.0-34.0) 05/15/23 19:41 MCHC 33.5 g/dL (32.0-36.0) 05/15/23 19:41 RDW Std Deviation 44.9 fL (36.4-46.3) 05/15/23 19:41 RDW Coeff of [place] 13.8 % (11.5-14.5) 05/15/23 19:41 Plt Count 217 K/uL (130-400) 05/15/23 19:41 MPV 10.8 fL (9.4-12.4) 05/15/23 19:41 Immature Gran % (Auto) 0.3 % 05/15/23 19:41 Neut % (Auto) 73.9 % 05/15/23 19:41 Lymph % (Auto) 18.5 % 05/15/23 19:41 [place] % (Auto) 5.8 % 05/15/23 19:41 Eos % (Auto) 1.0 % 05/15/23 19:41 Baso % (Auto) 0.5 % 05/15/23 19:41 Neut # (Auto) 4.61 K/uL (1.40-6.50) 05/15/23 19:41 Lymph # (Auto) 1.15 K/uL (1.20-3.40) L 05/15/23 19:41 [place] # (Auto) 0.36 K/uL (0.11-0.59) 05/15/23 19:41 Eos # (Auto) 0.06 K/uL (0.00-0.50) 05/15/23 19:41 Baso # (Auto) 0.03 K/uL (0.00-0.20) 05/15/23 19:41 Immature Gran # (Auto) 0.02 K/uL (0.01-0.20) 05/15/23 19:41 PT 26.9 Seconds (9.0-12.0) H 05/15/23 19:41 INR 2.6 (0.9-1.1) H 05/15/23 19:41 VBG pH 7.43 (7.36-7.41) H 05/15/23 21:07 VBG pCO2 44 mmHg (38-50) 05/15/23 21:07 VBG pO2 31 mmHg 05/15/23 21:07 VBG HCO3 29 mmol/L 05/15/23 21:07 VBG O2 Saturation < 60.0 % 05/15/23 21:07 VBG Base Excess 4.2 mEq/L 05/15/23 21:07 Sodium 136 mmol/L (136-145) 05/15/23 19:41 Potassium 4.1 mmol/L (3.5-5.1) 05/15/23 19:41 Chloride 102 mmol/L (98-107) 05/15/23 19:41 Carbon Dioxide 27 mmol/L (21-32) 05/15/23 19:41 Anion Gap 7 (3-11) 05/15/23 19:41 BUN 20 mg/dl (6-23) 05/15/23 19:41 Creatinine 1.16 mg/dl (0.6-1.2) 05/15/23 19:41 Est Cr Clr Drug Dosing 34.8 ml/min 05/15/23 19:41 Est GFR ( Amer) 51.5 ml/min 05/15/23 19:41 Est GFR (Non-Af Amer) 44.4 ml/min 05/15/23 19:41 BUN/Creatinine Ratio 17.2 (10-20) 05/15/23 19:41 Glucose 137 mg/dl (70-99(Fasting)) H 05/15/23 19:41 Calcium 9.4 mg/dl (8.6-10.3) 05/15/23 19:41 Magnesium 2.0 mg/dl (1.7-2.4) 05/15/23 19:41 Total Bilirubin 1.4 mg/dl (0.2-1.0) H 05/15/23 19:41 AST 19 U/L (13-39) 05/15/23 19:41 ALT 12 U/L (7-52) 05/15/23 19:41 Alkaline Phosphatase 35 U/L (34-104) 05/15/23 19:41 Troponin I High Sens 4.8 pg/ml (0-14) 05/15/23 19:41 B-Natriuretic Peptide 546 pg/ml (0-100) H 05/15/23 21:07 Total Protein 6.8 gm/dl (6.0-8.3) 05/15/23 19:41 Albumin 3.9 gm/dl (3.4-5.0) 05/15/23 19:41 Globulin 2.9 gm/dl (2.5-4.0) 05/15/23 19:41 Albumin/Globulin Ratio 1.3 (0.9-2) 05/15/23 19:41 Adenovirus (PCR) Not Detected (NotDetected) 05/15/23 21:20 B. pertussis DNA (PCR) Not Detected (NotDetected) 05/15/23 21:20 B.parapertussis DNA PCR Not Detected (NotDetected) 05/15/23 21:20 C. pneumoniae DNA (PCR) Not Detected (NotDetected) 05/15/23 21:20 Coronavirus OC43 (PCR) Not Detected (NotDetected) 05/15/23 21:20 Coronavirus HKU1 (PCR) Not Detected (NotDetected) 05/15/23 21:20 Coronavirus 229E (PCR) Not Detected (NotDetected) 05/15/23 21:20 SARS-CoV-2 (PCR) Not Detected (NotDetected) 05/15/23 21:20 Coronavirus NL63 (PCR) Not Detected (NotDetected) 05/15/23 21:20 Human Metapneumovir PCR Not Detected (NotDetected) 05/15/23 21:20 Influenza Type A (PCR) Not Detected (NotDetected) 05/15/23 21:20 Influenza Type B (PCR) Not Detected (NotDetected) 05/15/23 21:20 M. pneumoniae (PCR) Not Detected (NotDetected) 05/15/23 21:20 Parainfluenza 1 (PCR) Not Detected (NotDetected) 05/15/23 21:20 Parainfluenza 2 (PCR) Not Detected (NotDetected) 05/15/23 21:20 Parainfluenza 3 (PCR) Not Detected (NotDetected) 05/15/23 21:20 Parainfluenza 4 (PCR) Not Detected (NotDetected) 05/15/23 21:20 RSV (PCR) Not Detected (NotDetected) 05/15/23 21:20 Entero/Rhino (PCR) Not Detected (NotDetected) 05/15/23 21:20 ECG Additional Comments: ECG. Wide QRS with a rate of 100. Left axis deviation. Right bundle branch block. Code Status & VTE Plan VTE Prophylaxis Plan VTE Prophylaxis will be ordered: Yes
[2023-05-16] MEDS: METOPROLOL SUCC 25MG EXT REL TAB PO STA ×2 (01:10→09:30)
[2023-05-16] MEDS: PRAVASTATIN SOD 40 MG TAB PO STA (01:10)
[2023-05-16] MEDS ORDERED: ACETAMINOPHEN 325 MG TAB PO PRN (02:38)
[2023-05-16] MEDS ORDERED: NITROGLYCERIN SL 0.4 MG/TAB TAB SL PRN (02:38)
[2023-05-16] MEDS ORDERED: METOPROLOL TARTRATE 1 MG/ML VIAL IV PRN (02:38)
[2023-05-16] MEDS ORDERED: POLYETHYLENE (MIRALAX) 17 GM PACK PO PRN (02:38)
[2023-05-16] MEDS: SODIUM CHLORIDE 0.9% 1,000 ML IV SCH (03:55)
[2023-05-16 05:05] LABS: Basophils # (auto) 0.04 K/uL (0.00-0.20); Basophils % (auto) 0.6 %; Eosinophils # (auto) 0.06 K/uL (0.00-0.50); Eosinophils % (auto) 0.9 %; Hemoglobin 14.2 g/dl (12.0-16.0); Immature Granulocytes # (auto) 0.02 K/uL (0.01-0.20); Immature Granulocytes % (auto) 0.3 %; Lymphocytes # (auto) 1.24 K/uL (1.20-3.40); Mean Corpuscular Hemoglobin 29.6 pg (25.0-34.0); Mean Corpuscular Volume 89.6 fL (80.0-100.0); Mean Platelet Volume 10.4 fL (9.4-12.4); Monocytes # (auto) 0.42 K/uL (0.11-0.59); Monocytes % (auto) 6.4 %; Neutrophils # (auto) 4.76 K/uL (1.40-6.50); Neutrophils % (auto) 72.8 %; Platelet Count 211 K/uL (130-400); RDW Coefficient of Variation 13.8 % (11.5-14.5); RDW Standard Deviation 45.2 fL (36.4-46.3); White Blood Count 6.54 K/ul (4.8-10.8)
[2023-05-16 05:26] LABS: BUN Creatinine Ratio 17.5 (10-20); Calcium 8.9 mg/dl (8.6-10.3); Creatinine Clr Calc Pharmacy 39.2 ml/min; Est GFR (African American) 59.5 ml/min; Est GFR (Non-African American) 51.3 ml/min; Potassium 4.2 mmol/L (3.5-5.1)
[2023-05-16 05:33] LABS: Troponin I High Sensitivity 5.1 pg/ml (0-14)
[2023-05-16 05:40] LABS: INR 2.9 (0.9-1.1); Prothrombin Time 29.8 Seconds (9.0-12.0)
[2023-05-16] MEDS: LANSOPRAZOLE 30 MG SOLTAB PO SCH (05:49)
[2023-05-16 06:25] LABS: Appearance Urine Clear (Clear); Bacteria Urine Automated Negative (Negative); Bilirubin Urine Negative (Negative); Blood Urine 1+ (Negative); Color Urine Yellow; Epithelial Cell Urine Auto 20-30 /lpf (0-5); Glucose Urine UA Negative (Negative); Ketones Urine Trace (Negative); Leukocyte Esterase Urine 1+ (Negative); Nitrite Urine Negative (Negative); Protein Urine Negative (Negative); RBC Urine Automated 0-4 /hpf (0-4); Specific Gravity Urine 1.012 (1.000-1.030); Urobilinogen Urine Negative (Negative); pH Urine 5.5 (4.5-7.5)
--- NOTE | 2023-05-16 06:44 | XRay Report ---
XR chest 1V portable HISTORY: 82 years-old Female Dyspnea acute shortness of breath COMPARISON: 05/09/2023 TECHNIQUE: AP view the chest FINDINGS: Cardiac silhouette is enlarged. Dual lead left subclavian pacer. Unchanged mild linear right perihila r scarring. Mild chronic interstitial coarsening. There is no pneumothorax, pleural effusion or pulmo nary edema. The bones of the chest appear grossly intact. IMPRESSION: No acute process. ACT 112: Negative or not required by law. The above report was generated using voice recognition software. It may contain grammatical, syntax o r spelling errors. Electronically signed by: Everett Poole M.D. 05/16/2023 6:43 AM
--- NOTE | 2023-05-16 07:48 | Cardiology Consultation ---
Date of Consultation May 16, 2023 Assessment & Plan (1) Heart palpitations: (2) Tachy-syed syndrome: (3) History of pacemaker: Plan IMPRESSION: 82 year old female with known history of PAF/Flutter, s/p DCCV on 05/09/2023 with recurrent narrow complex tachycardia noted on telemetry. Rates in the low 100s. Symptomatic with palpitations and fatigue. Elevated CHADSVASC score-- anticoagulated on Coumadin. INR 2.9 this am. Echo 02/2023 with preserved LVEF, RA/LA normal in size, Moderate MR/TR-- questionable if patient will be able to maintain NSR given findings. PLAN: tachycardia: 1. Permanent pacemaker interrogation performed as described below. 2. Rates tachycardic-- increase metoprolol succinate 100 mg BID 3. Future considerations for a AV jaspreet ablation. 4. Continue AC with Coumadin, INR goal between 2-3. Hypertension: BP controlled. 1. Continue lisinopril, spironolactone, and Norvasc as ordered. Case discussed with Dr. Rodriguez. Further recommendations pending his assessment. I spent a total of 45 minutes on the date of service in preparation, delivery, and documentation of the care provided to the patient excluding any time spent in the performance of separately billed services. SUPRIYA Kathleen Department of Cardiology, [facility] This chart was completed in part utilizing Speech Voice Recognition Software. Grammatical errors, random word insertions, pronoun errors, and incomplete sen tences are an occasional consequence of this system due to software limitations, ambient noise, and hardware issues. Any formal questions or concerns about the content, text, or information contained within the body of this dictation should be directly addressed to the provider for clarification. Supervising Physician Co-Signing Physician Notes Attending attestation: Case reviewed with the advanced practitioner. I have personally performed a history and physical examination on the patient. I have reviewed the advanced practitioner's documentation on the date of service referenced in note, and I agree with, and take responsibility for the plan of care. Subjective: Patient with noted generalized subjective palpitations, onset a few days ago, since her cardioversion that was performed on 05/09/2023. Exam: Cardiovascular: Regular rhythm, 1/6 systolic murmur, trace bilateral lower extremity edema Data: Device interrogation reveals appropriate lead function and generator longevity The current electrogram is consistent with 1: 1 atrioventricular conduction at about 100 bpm which correlates well with the telemetry Findings suggestive of a supraventricular tachycardia such as an atrial tachycardia or an AV jaspreet reentrant tachycardia Accelerated junctional rhythm with retrograde atrial activity also a possibility Patient underwent administration of adenosine while I was at the bedside of 6 mg and 12 mg, without change in the heart rhythm. Question if the patient is in a supraventricular tachycardia, and if properties of the tachycardia are unusual related to flecainide treatment Accelerated junctional prolonged rhythm is also a possibility Impression/ Plan: -As noted above patient with history of paroxysmal atrial fibrillation, atrial flutter, and presents with a different narrow complex tachycardia than that which was observed on 05/09/2023. -Electrograms of pacemaker reviewed with Dr Prater of EP . -Will discontinue flecainide at present. Continue metoprolol succinate, dose increased to 100 mg BID. -Add diltiazem infusion. -DC amlodipine -Advance diet. I spent a total of 30 minutes coordinating, documenting, and providing care for this patient excluding time spent in the performance of separately billed services or time spent by another provider. Anuel Rodriguez DO History of Present Illness Reason for Consultation: Palpitations Requesting Physician: Lanny hospitalist Attending Physician: Tammy Moore MD History of Present Illness 82-year-old female who presented to the [facility] emergency department last evening due to palpitations, dizziness, and generalized fatigue. Recently admitted on 05/09/2023 due to recurrent atrial flutter status post cardioversion. Flecainide dose was increased to 150 mg two times a day during that admission. Patient has a permanent pacemaker, last admission pacemaker was reprogrammed to increase detection and mode switching. Atrial therapies were disabled. Patient is currently maintained on metoprolol succinate 75 mg twice daily and flecainide 150 mg twice daily. Patient is anticoagulated with Coumadin. Most recent echocardiogram dated 03/10/2023 showed a preserved LVEF of 55 to 60%. Moderate MR/TR. LA/RA normal in size. Tele: narrow complex tachycardia , 100s Labs: stable, no acute/concerning findings. HS trop negative x2. CXR: unremarkable. Upon entrance into the room patient resting in bed. No acute distress. Denies chest pain, shortness of breath, or palpitations. Continues to feel weak and "worn out". No orthopnea or PND. Mild lower extremity edema. PPM device report pending. Past medical history: 1. Paroxysmal atrial fibrillation status post pulmonary vein isolation ablation (2013 [facility] Dr Kenneth Avendaño), multiple antiarrhythmic therapies including sotalol, amiodarone (poor tolerance) now on flecainide and metoprolol, chronic anticoagulation with warfarin -Status post cardioversion 05/09/2023, flecainide dose increased. 2. Tachybradycardia syndrome status post dual-chamber pacemaker 09/02/2021, [employer] Capir XT DR RINCON 3. Mixed valvular disease with mild aortic insufficiency and mild to moderate mitral insufficiency 4. Hypertension 5. Obstructive sleep apnea on CPAP Allergies Allergy/AdvReac Type Severity Reaction Status Date / Time Penicillins Allergy Unknown RASH Verified 05/16/23 00:17 Home Medications Medication Instructions Recorded Confirmed Type amlodipine 5 mg tablet 5 mg PO QAM 05/29/18 05/16/23 History pravastatin 40 mg tablet 40 mg PO HS 05/29/18 05/16/23 History potassium chloride 10 mEq 10 meq PO QAM 06/05/18 05/16/23 History tablet,extended release(part/cryst) (Klor-Con M) lansoprazole 30 mg capsule,delayed 30 mg PO DAILYBB 04/10/21 05/16/23 History release (Prevacid) spironolactone 25 mg tablet 12.5 mg PO MOWEFR 09/05/21 05/16/23 History warfarin 2.5 mg tablet 0 mg PO DAILY 09/05/21 05/16/23 History calcium carbonate 600 mg calcium 600 mg PO DAILY 09/06/21 05/16/23 History (1,500 mg) tablet (Calcium) cholecalciferol (vitamin D3) 50 50 mcg PO DAILY 09/06/21 05/16/23 History mcg (2,000 unit) tablet (Vitamin D3) lisinopril 2.5 mg tablet 2.5 mg PO DAILY #30 tabs 03/11/23 05/16/23 Rx metoprolol succinate 25 mg 75 mg (3 x 25 mg) PO BID 30 days 03/11/23 05/16/23 Rx tablet,extended release 24 hr #180 tabs flecainide 100 mg tablet 150 mg (1.5 x 100 mg) PO BID #90 05/09/23 05/16/23 Rx tabs Patient History Medical History Tachy-syed syndrome History of pacemaker Pacemaker HLD (hyperlipidemia) FEDERICO (acute kidney injury) Weakness Shortness of breath Hiatal hernia Upper GI bleed Compression fracture of T11 vertebra HTN (hypertension) Atrial fibrillation Obstructive sleep apnea CKD (chronic kidney disease) stage 3, GFR 30-59 ml/min GERD (gastroesophageal reflux disease) Surgical History S/P cholecystectomy Family History Other Diabetes Hypertension Social History Smoking Status: Never smoker Second Hand Exposure: No; Do You Dip or Chew Tobacco: No; Hx Alcohol Use: No Hx Substance Use: No Preferred Language: Dutch Communication Ability: Effective Visual Impairment: No Limitations Hearing Ability: Normal Road Inspector Required: No Beliefs That Will Affect Care: None Current Living Situation: Spouse Current Living Situation Comment: LIVES WITH Feels Safe at Home: Yes Assistive Devices: None Review of Systems Review of Systems: All systems reviewed & are unremarkable except as noted in HPI & below Physical Exam Constitutional: WD/WN, vitals as above no acute distress Eyes: PERRL, conjunctivae normal, anicteric sclerae Respiratory: normal respiratory effort, lungs clear to auscultation Cardiovascular: Rate/Rhythm: + tachycardic Heart Sounds: normal S1 and normal S2 Vessels: no JVD Extremities: + edema (trace BL nonpitting ) Chest (Breasts): Chest: + pacemaker (left chest ) Gastrointestinal (Abdomen): normal bowel sounds, soft, nontender, no hepatosplenomegaly Skin: no rashes, warm and dry Psychiatric: Orientation: alert and oriented x 3 Results & Data Vital Signs (Past 12 Hours) Vital Signs Temp Pulse Resp BP BP Pulse Ox O2 Del Method 05/16/23 05:00 122/91 05/16/23 05:00 111 H 18 95 05/16/23 04:00 128/92 05/16/23 04:00 110 H 22 94 05/16/23 03:00 108 H 20 95 05/16/23 03:00 118/88 05/16/23 02:54 05/16/23 02:52 105 H 05/16/23 02:50 Room Air 05/16/23 02:38 Room Air 05/16/23 02:38 36.4 C L 14 141/100 H 97 Room Air 05/16/23 02:28 103 H 18 05/16/23 02:28 141/100 H 05/16/23 02:26 108 H 05/16/23 01:30 105 H 25 H 93 05/16/23 01:00 105 H 20 95 05/16/23 01:00 126/88 05/16/23 00:30 104 H 20 95 05/16/23 00:21 104 H 20 95 05/16/23 00:21 136/95 05/16/23 00:00 103 H 23 95 05/15/23 23:36 104 H 05/15/23 23:30 103 H 20 94 05/15/23 23:00 104 H 21 95 05/15/23 22:53 103 H 18 96 05/15/23 22:53 121/88 05/15/23 22:30 101 H 26 H 95 05/15/23 22:00 100 H 20 97 05/15/23 21:30 104 H 25 H 05/15/23 21:18 103 H 24 94 05/15/23 21:18 127/96 05/15/23 21:00 104 H 26 H 95 05/15/23 20:30 103 H 22 97 05/15/23 20:00 101 H 22 98 05/15/23 19:44 37.2 C 96 H 20 139/88 95 Room Air O2 Del Method 05/16/23 05:00 05/16/23 05:00 05/16/23 04:00 05/16/23 04:00 05/16/23 03:00 05/16/23 03:00 05/16/23 02:54 Room Air 05/16/23 02:52 05/16/23 02:50 05/16/23 02:38 05/16/23 02:38 05/16/23 02:28 05/16/23 02:28 05/16/23 02:26 05/16/23 01:30 05/16/23 01:00 05/16/23 01:00 05/16/23 00:30 05/16/23 00:21 05/16/23 00:21 05/16/23 00:00 05/15/23 23:36 05/15/23 23:30 05/15/23 23:00 05/15/23 22:53 05/15/23 22:53 05/15/23 22:30 05/15/23 22:00 05/15/23 21:30 05/15/23 21:18 05/15/23 21:18 05/15/23 21:00 05/15/23 20:30 05/15/23 20:00 05/15/23 19:44 Laboratory Results Cardiac Enzymes 05/15/23 05/15/23 05/16/23 Range/Units 19:41 21:07 04:34 AST 19 (13-39) U/L Troponin I High Sens 4.8 5.1 (0-14) pg/ml B-Natriuretic Peptide 546 H (0-100) pg/ml Coagulation 05/15/23 05/15/23 05/16/23 Range/Units 19:41 21:07 04:34 PT 26.9 H 29.8 H (9.0-12.0) Seconds B-Natriuretic Peptide 546 H (0-100) pg/ml CBC 05/15/23 05/16/23 Range/Units 19:41 04:34 WBC 6.23 6.54 (4.8-10.8) K/ul RBC 4.77 4.80 (4.20-5.40) M/uL Hgb 14.2 14.2 (12.0-16.0) g/dl Hct 42.4 43.0 (37.0-47.0) % Plt Count 217 211 (130-400) K/uL Neut # (Auto) 4.61 4.76 (1.40-6.50) K/uL Lymph # (Auto) 1.15 L 1.24 (1.20-3.40) K/uL [place] # (Auto) 0.36 0.42 (0.11-0.59) K/uL Eos # (Auto) 0.06 0.06 (0.00-0.50) K/uL Baso # (Auto) 0.03 0.04 (0.00-0.20) K/uL Comprehensive Metabolic Panel 05/15/23 05/16/23 Range/Units 19:41 04:34 Sodium 136 137 (136-145) mmol/L Potassium 4.1 4.2 (3.5-5.1) mmol/L Chloride 102 104 (98-107) mmol/L Carbon Dioxide 27 26 (21-32) mmol/L BUN 20 18 (6-23) mg/dl Creatinine 1.16 1.03 (0.6-1.2) mg/dl Glucose 137 H 88 (70-99(Fasting)) mg/dl Calcium 9.4 8.9 (8.6-10.3) mg/dl AST 19 (13-39) U/L ALT 12 (7-52) U/L Alkaline Phosphatase 35 (34-104) U/L Total Protein 6.8 (6.0-8.3) gm/dl Albumin 3.9 (3.4-5.0) gm/dl Intake and Output 05/15/23 05/16/23 05/16/23 22:59 06:59 14:59 Intake Total 500 / 500 Output Total 275 / 275 Balance 225 / 225 Intake: IV 500 / 500 Sodium Chloride 0.9% 500 ml @ 500 / 500 999 mls/hr IV .Q31M ONE Rx#: [id number] Output: Urine 275 / 275 Other: # Unmeasured Voids 1 Weight 64.4 kg 67.9 kg Weight Measurement Method Built in [facility] Built in [facility]
[2023-05-16] MEDS: amLODIPine BESYLATE 5 MG TAB PO SCH (07:49)
[2023-05-16] MEDS: FLECAINIDE ACETATE 100 MG TABLET PO SCH (07:50)
[2023-05-16] MEDS: lisinopril 2.5 MG TAB PO SCH (07:50)
[2023-05-16] MEDS: CHOLECALCIFEROL 25 MCG (1000 UNITS) TAB PO SCH (07:50)
[2023-05-16] MEDS: CALCIUM CARBONATE 1250MG TAB PO SCH (07:50)
[2023-05-16] MEDS: METOPROLOL SUCC 25MG EXT REL TAB PO SCH (07:50)
[2023-05-16] MEDS: SPIRONOLACTONE 12.5 MG TAB PO SCH (07:51)
[2023-05-16] MEDS: POTASSIUM CHLORIDE 10 MEQ TABCR PO SCH (07:51)
[2023-05-16] MEDS: ADENOSINE IV SOLN 3 MG/ML 2 ML VIAL IV STA (10:45)
--- NOTE | 2023-05-16 10:53 | Electrocardiogram Report ---
Test Reason : Blood Pressure : / mmHG Vent. Rate : 096 BPM Atrial Rate : 000 BPM P-R Int : 000 ms QRS Dur : 138 ms QT Int : 396 ms P-R-T Axes : 000 -79 066 degrees QTc Int : 500 ms sinus rhythm Left axis deviation Right bundle branch block Poor R wave progression, consider anterior NH vs. lead placement vs. LVH Abnormal ECG Confirmed by Demetris Barlow ([id number]) on 05/16/2023 10:53:32 AM Referred By: REFERRED SELF Confirmed By:Mahin Barlow
[2023-05-16] MEDS: ADENOSINE IV SOLN 3 MG/ML 2 ML VIAL IV ONE (11:00)
[2023-05-16] MEDS ORDERED: ADENOSINE IV SOLN 3 MG/ML 2 ML VIAL IV STA (11:09)
--- NOTE | 2023-05-16 11:28 | Communication Note ---
Date of Service: May 16, 2023 Patient evaluated at bedside after admission early this am. Patient denies any acute concerns, but endorses constipation and would like something for such. Denies chest pain or palpitation Exam notable for tachycardia, ?KRISS; otherwise pleasant woman, AOx3 Ms. Uribe is an 82 year old woman history significant for hyperlipidemia, sleep apnea, paroxysmal atrial fibrillation, tachybradycardia syndrome, s/p pacemaker, hypertension, nonrheumatic aortic valve insufficiency, nonrheumatic mitral valve regurgitation, GERD, osteoporosis, essential tremor, history of GI bleed, who lives at her home with her admitted on 05/16 for evaluation of palpitations and found to have rates in 120-130s. Patient with recent history of cardioversion on 03/11/23 and 05/09/23. Noted racing sensation for last few days prompting presentation. Cardiology evaluated patient and notes reviewed: trialed adenosine x 2 without change in underlying rhythm. Question of SVT v accelerated junctional rhythm. #Symptomatic tachycardia, SVT v accerlated junctional rhythm #Atrial flutter/Atrial Fibrillation s/p cardioversion #Tachybardycardia syndrome s/p dcppm 2021 -PVI ablation in 2013; recently placed on flecainide and dose increased -Cardiology following -Discontinue flecainde -Continue metoprolol succinate 100mg BID (dose increased from home) -Discontinue amlodipine -Started on diltiazem drip -Continue AC with Coumadin, INR goal between 2-3. #Obstructive Sleep apnea CPAP nightly #Hyperlipidemia On statin #Hypertension #Heart failure with preserved EF On lisinopril, metoprolol succinate and amlodipine On spironolactone -Increase metoprolol as above -Discontinue amlodipine #GERD On Prevacid DVT prophylaxis SCDs Monitor INR Rest of plan per H&P formal note to follow in am
[2023-05-16] MEDS ORDERED: STAT IV Infusion **Titration per Protocol STA (12:26)
[2023-05-16] MEDS: dilTIAZem HCL 125 MG in DEXTROSE 5% 100 ML IV SCH (13:11)
[2023-05-16] MEDS: WARFARIN SOD 5 MG TAB PO SCH (15:37)
[2023-05-16] MEDS: POLYETHYLENE (MIRALAX) 17 GM PACK PO SCH (17:15)
[2023-05-16] MEDS: DOCUSATE SODIUM/SENNA 50/8.6MG TAB PO SCH (17:15)
--- NOTE | 2023-05-16 18:43 | Communication Note ---
Date of Service: May 16, 2023 Patient with a noted rhythm change captured on telemetry and EKG this afternoon. EKG reviewed, and repeat pacemaker interrogation performed personally. Patient appears to be in an atrial tachycardia in the pacemaker is tracking the atrial beats and pacing the ventricle at 100 to 110 bpm. Patient asymptomatic. The atrial tachycardia had persisted despite uptitrating diltiazem to 15 mg/h. Plan: Diltiazem has been reduced to 7.5 mg/h Pacemaker mode changed to DDIR with lower rate of 60 which has resolved her tachycardia in the short-term, with loss of AV synchrony however. At this point, given complex atrial arrhythmias including atrial fibrillation, atrial flutter, and atrial tachycardia, recommend proceeding with an AV node ablation. Patient already received her Coumadin today. Will hold from here and plan on procedure later this week. Per patient's request, I called her son, Rommel, and provided updates.
[2023-05-16] MEDS: PRAVASTATIN SOD 40 MG TAB PO SCH (20:05)
[2023-05-16] MEDS: METOPROLOL SUCC 50MG EXT REL TAB PO SCH (20:05)
[2023-05-17 06:41] LABS: Hematocrit (blood only) 38.3 % (37.0-47.0); Hemoglobin 13.1 g/dl (12.0-16.0); Mean Corpuscular Hgb Conc 34.2 g/dL (32.0-36.0); Mean Corpuscular Volume 87.8 fL (80.0-100.0); Mean Platelet Volume 11.1 fL (9.4-12.4); Platelet Count 197 K/uL (130-400); RDW Coefficient of Variation 13.7 % (11.5-14.5); RDW Standard Deviation 44.5 fL (36.4-46.3); Red Blood Count 4.36 M/uL (4.20-5.40); White Blood Count 5.76 K/ul (4.8-10.8)
[2023-05-17 06:50] LABS: BUN Creatinine Ratio 21.1 (10-20); Calcium 8.5 mg/dl (8.6-10.3); Est GFR (African American) 55.5 ml/min; Est GFR (Non-African American) 47.9 ml/min; Magnesium 1.9 mg/dl (1.7-2.4); Phosphorus 3.8 mg/dl (2.5-4.9); Potassium 4.2 mmol/L (3.5-5.1)
--- NOTE | 2023-05-17 06:55 | Cardiology Progress Note ---
Date of Service May 17, 2023 Assessment & Plan (1) Narrow complex tachycardia: (2) Heart palpitations: (3) Tachy-syed syndrome: (4) History of pacemaker: Plan IMPRESSION: 82 year old female with known history of PAF/Flutter, s/p DCCV on 05/09/2023 with recurrent narrow complex tachycardia noted on telemetry-Rates 100-110s. Symptomatic with palpitations and fatigue. Elevated CHADSVASC score-- anticoagulated on Coumadin-- now on hold as of 05/16/2023. INR 4.2 this am. Echo 02/2023 with preserved LVEF, RA/LA normal in size, Moderate MR/TR-- questionable if patient will be able to maintain NSR given findings. PLAN: Narrow complex tachycardia: 1. Permanent pacemaker interrogation performed as described previously-- narrow complex tachycardia consistent with possible atrial tach vs accelerated junctional. Flecainide dc'd (05/16/2023) 2. Continue metoprolol succinate 100 mg BID and Diltazem infusion. 3. Given complex atrial arrhythmias including atrial fibrillation, atrial flutter, and atrial tachycardia, recommend proceeding with an AV node ablation. Coumadin on hold for procedure later this week. 4. INR increased to 4.2 this am-- will give x1 dose of IV Vit k 2.5 mg and repeat INR at 1400. Will anticipate starting heparin gtt when INR is closer to 2.0, will need INR around of 2 or under for procedure. Hypertension: 1. Continue lisinopril and spironolactone. Norvasc dicontinued 05/16 with Diltiazem infusion. Case discussed with Dr. Rodriguez. Further recommendations pending his assessment. I spent a total of 45 minutes on the date of service in preparation, delivery, and documentation of the care provided to the patient excluding any time spent in the performance of separately billed services. SUPRIYA Kathleen Department of Cardiology, [facility] This chart was completed in part utilizing Speech Voice Recognition Software. Grammatical errors, random word insertions, pronoun errors, and incomplete sentences are an occasional consequence of this system due to software limitations, ambient noise, and hardware issues. Any formal questions or concerns about the content, text, or information contained within the body of this dictation should be directly addressed to the provider for clarification. Admission and Anticipated Discharge Date Admission Date: May 16, 2023 Supervising Physician Co-Signing Physician Notes Attending attestation: Case reviewed with the advanced practitioner. I have personally performed a history and physical examination on the patient. I have reviewed the advanced practitioner's documentation on the date of service referenced in note, and I agree with, and take responsibility for the plan of care. Subjective: Patient without subjective complaints. Telemetry reveals additional change in rhythm overnight, currently rate controlled atrial fibrillation on EKG and telemetry. Exam: Cardiovascular irregular rhythm, no murmurs, no edema Left infraclavicular pacemaker pocket clean dry and intact Data: INR 4.2 Impression/ Plan: -Complex atrial arrhythmias including atrial fibrillation, atrial flutter, atrial tachycardia -Previous radiofrequency atrial fibrillation ablation, 2013 -Tachycardia-bradycardia syndrome with placement of a dual-chamber [employer] permanent pacemaker in 2021 with left bundle lead -Coagulopathy, on Coumadin --Need to be cautious with regards to anticoagulation given recent direct- current cardioversion a week ago -INR however is to be lower to allow for right femoral vein access for anticipated AV junction ablation tentatively scheduled for 05/18/2023. -Vitamin K 2.5 mg x 1 administered a.m. of 05/17/2023 I will plan on repeat INR at 1400 today. Start heparin bridge when INR less than 2 and would hold heparin 4 hours prior to proposed procedure. I spent a total of 20 minutes coordinating, documenting, and providing care for this patient excluding time spent in the performance of separately billed services or time spent by another provider. Anuel Rodriguez, DO Subjective 82 year old female with known history of paroxysmal atrial fibrillation/flutter status post cardioversion 05/09/2023 with recurrent narrow complex tachycardia seen on telemetry. Patient underwent administration of adenosine x 2 without change in heart rhythm. There was question if the patient was in supraventricular tachycardia and if properties of the tachycardia were related to flecainide treatment. Accelerated junctional prolonged rhythm was also a possibility. Pacemaker device interrogation reviewed with EP. Flecainide was discontinued and metoprolol succinate was increased to 100 mg daily. Diltiazem infusion was started. Change in rhythm on telemetry and EKG yesterday afternoon. Repeat pacemaker interrogation performed. Patient appeared to be in an atrial tach with rapid rates in the 100s to 110s. Atrial tach persisted despite up titration of diltiazem. Pacemaker mode changed to DDIR with lower rate of 60 which has resolved her tachycardia in the short-term, with loss of AV synchrony however. Coumadin placed on hold for possible AV node ablation later this week. Upon entrance into the room patient resting comfortably in bed. Has been up ambulating in the room to the bathroom. Notes generalized weakness and fatigue however symptoms are improved compared to yesterday. Denies any exertional chest pain, unusual shortness of breath. No palpitations lightheadedness or dizziness. No orthopnea or PND. No lower extremity edema. Tele: Atrial fibrillation and paced 60s to 70s with conduction changes. Review of Systems Review of Systems: All systems reviewed & are unremarkable except as noted in HPI & below Physical Exam Constitutional: WD/WN, vitals as above no acute distress Eyes: PERRL, conjunctivae normal, anicteric sclerae Respiratory: normal respiratory effort, lungs clear to auscultation Cardiovascular: Rate/Rhythm: + tachycardic Heart Sounds: normal S1 and normal S2 Vessels: no JVD Extremities: + edema (trace BL nonpitting ) Chest (Breasts): Chest: + pacemaker (left chest ) Gastrointestinal (Abdomen): normal bowel sounds, soft, nontender, no hepatosplenomegaly Skin: no rashes, warm and dry Psychiatric: Orientation: alert and oriented x 3 Results & Data Vital Signs (Past 12 Hours) Vital Signs Temp Pulse Pulse Resp BP BP Pulse Ox 05/17/23 04:15 05/17/23 03:49 36.1 C L 67 18 120/71 95 05/16/23 23:41 60 05/16/23 23:05 36.6 C 66 20 111/70 96 05/16/23 21:00 62 23 94 05/16/23 20:03 107/60 05/16/23 20:03 63 19 95 05/16/23 20:00 62 33 H 95 05/16/23 19:21 36.5 C 05/16/23 19:00 60 15 94 O2 Del Method 05/17/23 04:15 Room Air 05/17/23 03:49 CPAP 05/16/23 23:41 05/16/23 23:05 CPAP 05/16/23 21:00 05/16/23 20:03 05/16/23 20:03 05/16/23 20:00 05/16/23 19:21 05/16/23 19:00 Laboratory Results Coagulation 05/17/23 Range/Units 05:57 PT 42.1 H (9.0-12.0) Seconds CBC 05/17/23 Range/Units 05:57 WBC 5.76 (4.8-10.8) K/ul RBC 4.36 (4.20-5.40) M/uL Hgb 13.1 (12.0-16.0) g/dl Hct 38.3 (37.0-47.0) % Plt Count 197 (130-400) K/uL Comprehensive Metabolic Panel 05/17/23 Range/Units 05:57 Sodium 138 (136-145) mmol/L Potassium 4.2 (3.5-5.1) mmol/L Chloride 106 (98-107) mmol/L Carbon Dioxide 26 (21-32) mmol/L BUN 23 (6-23) mg/dl Creatinine 1.09 (0.6-1.2) mg/dl Glucose 93 (70-99(Fasting)) mg/dl Calcium 8.5 L (8.6-10.3) mg/dl Intake and Output 05/16/23 05/17/23 05/17/23 22:59 06:59 14:59 Intake Total 1237.333 / 1597.041 46.875 / 1597.041 Output Total 300 / 850 250 / 850 Balance 937.333 / 747.041 -203.125 / 747.041 Intake: IV 987.333 / 1047.041 46.875 / 1047.041 Sodium Chloride 0.9% 1,000 ml @ 937.333 / 937.333 80 mls/hr IV .[id number] CURLY Rx#: [id number] dilTIAZem HCL 125 mg In 50 / 109.708 46.875 / 109.708 Dextrose 5% 100 ml @ 7.5 MG/HR 7.5 mls/hr IV .[id number] CURLY Rx#: [id number] Oral 250 / 550 Output: Urine 300 / 850 250 / 850
[2023-05-17 07:20] LABS: INR 4.2 (0.9-1.1); Prothrombin Time 42.1 Seconds (9.0-12.0)
[2023-05-17] MEDS: PHYTONADIONE 2.5 MG in DEXTROSE 5% 50 ML IV ONE (08:13)
--- NOTE | 2023-05-17 11:04 | Electrocardiogram Report ---
Test Reason : Blood Pressure : / mmHG Vent. Rate : 063 BPM Atrial Rate : 048 BPM P-R Int : 242 ms QRS Dur : 158 ms QT Int : 476 ms P-R-T Axes : 000 091 -80 degrees QTc Int : 487 ms AV dual-paced rhythm with prolonged AV conduction with occasional ventricular-paced complexes and fu cate beats Abnormal ECG When compared with ECG of 16-MAY-2023 17:59, (unconfirmed) Electronic ventricular pacemaker has replaced Atrial fibrillation Confirmed by Demetris Barlow ([id number]) on 05/17/2023 11:04:32 AM Referred By: REFERRED SELF Confirmed By:Mahin Barlow
[2023-05-17 14:41] LABS: INR 2.1 (0.9-1.1)
--- NOTE | 2023-05-17 15:20 | Communication Note ---
Date of Service: May 17, 2023 INR =2.1 Continue to hold coumadin. Repeat INR at 20:00, and in am 05/18/23.
[2023-05-17] MEDS ORDERED: WARFARIN SOD 2.5 MG TAB PO SCH (16:00)
--- NOTE | 2023-05-17 18:07 | Hospitalist Progress Note ---
Date of Service May 17, 2023 Assessment & Plan (1) Heart palpitations: Plan: Ms. Uribe is an 82 year old woman history significant for hyperlipidemia, sleep apnea, paroxysmal atrial fibrillation, tachybradycardia syndrome, s/p pacemaker, hypertension, nonrheumatic aortic valve insufficiency, nonrheumatic mitral valve regurgitation, GERD, osteoporosis, essential tremor, history of GI bleed, who lives at her home with her admitted on 05/16 for evaluation of palpitations and found to have rates in 120-130s. Patient with recent history of cardioversion on 03/11/23 and 05/09/23. Noted racing sensation for last few days prompting presentation. On 05/16 Cardiology evaluated patient and notes reviewed: trialed adenosine x 2 without change in underlying rhythm. Question of SVT v accelerated junctional rhythm. On 05/17, Cardiology discussed with EP to pursure ablation. INR at 4.2 and now s/p IV 2.5mg at 2.1 this afternoon. Planning for possible AV node ablation tomorrow. #Symptomatic tachycardia, SVT v accerlated junctional rhythm #Atrial flutter/Atrial Fibrillation s/p cardioversion #Tachybradycardia syndrome s/p dcppm 2021 -PVI ablation in 2013; recently placed on flecainide and dose increased -Cardiology following -Discontinue flecainde -Continue metoprolol succinate 100mg BID (dose increased from home) -Discontinue amlodipine -Started on diltiazem drip -Hold AC with Coumadin -Goal INR 1.5 for ablation, s/p IV K -Repeat INR in am #Obstructive Sleep apnea CPAP nightly #Hyperlipidemia On statin #Hypertension #Heart failure with preserved EF On lisinopril, metoprolol succinate and amlodipine On spironolactone -Increased metoprolol as above -Discontinue amlodipine #GERD On Prevacid DVT prophylaxis SCDs Monitor INR Disposition Telemetry Full code Admission and Anticipated Discharge Date Admission Date: May 16, 2023 Subjective Patient evaluated at bedside. Denies any acute concerns, denying any chest pain palpitations or other active issues. Notes that she feels well and understands the plan for ablation at this time Physical Exam Constitutional: WD/WN, vitals as above Respiratory: normal respiratory effort, lungs clear to auscultation Cardiovascular: irregular, but stable rate Gastrointestinal (Abdomen): normal bowel sounds, soft, nontender, no hepatosplenomegaly Results & Data Results & Data Vital Signs (Past 12 Hours) Vital Signs Temp Pulse Resp BP Pulse Ox O2 Del Method 05/17/23 15:32 36.6 C 80 18 113/72 93 Room Air 05/17/23 11:44 36.4 C L 72 18 116/71 94 Room Air 05/17/23 08:23 78 05/17/23 08:11 36.8 C 69 18 107/69 92 Room Air Laboratory Results Short CBC 05/17/23 Range/Units 05:57 WBC 5.76 (4.8-10.8) K/ul Hgb 13.1 (12.0-16.0) g/dl Hct 38.3 (37.0-47.0) % Plt Count 197 (130-400) K/uL BMP 05/17/23 05:57 Sodium 138 Potassium 4.2 Chloride 106 Carbon Dioxide 26 BUN 23 Creatinine 1.09 Glucose 93 Calcium 8.5 L Medications Administered Home Medications Medication Instructions Recorded Confirmed Last Taken amlodipine 5 mg tablet 5 mg PO QAM 05/29/18 05/16/23 03/09/23 pravastatin 40 mg tablet 40 mg PO HS 05/29/18 05/16/23 03/08/23 potassium chloride 10 mEq 10 meq PO QAM 06/05/18 05/16/23 03/09/23 tablet,extended release(part/cryst) (Klor-Con M) lansoprazole 30 mg capsule,delayed 30 mg PO DAILYBB 04/10/21 05/16/23 03/09/23 release (Prevacid) spironolactone 25 mg tablet 12.5 mg PO MOWEFR 09/05/21 05/16/23 03/09/23 warfarin 2.5 mg tablet 0 mg PO DAILY 09/05/21 05/16/23 03/08/23 calcium carbonate 600 mg calcium 600 mg PO DAILY 09/06/21 05/16/23 03/09/23 (1,500 mg) tablet (Calcium) cholecalciferol (vitamin D3) 50 50 mcg PO DAILY 09/06/21 05/16/23 03/09/23 mcg (2,000 unit) tablet (Vitamin D3) lisinopril 2.5 mg tablet 2.5 mg PO DAILY #30 tabs 03/11/23 05/16/23 Unknown metoprolol succinate 25 mg 75 mg (3 x 25 mg) PO BID 30 days 03/11/23 05/16/23 Unknown tablet,extended release 24 hr #180 tabs flecainide 100 mg tablet 150 mg (1.5 x 100 mg) PO BID #90 05/09/23 05/16/23 03/09/23 tabs Active Medications Generic Name Dose Route Start Last Admin Trade Name Brandenq PRN Reason Stop Dose Admin Calcium Carbonate 1,250 mg 05/16/23 09:00 05/17/23 08:08 Calcium Carbonate 1250mg Tab PO 06/15/23 08:59 1,250 mg DAILY CURLY Administration Diltiazem HCl 125 mg/ Dextrose 125 mls @ 7.5 mls/hr 05/16/23 12:30 05/17/23 17:56 IV 06/15/23 12:29 Infused .[id number] CURLY Titration Protocol 7.5 MG/HR Lansoprazole 30 mg 05/16/23 06:30 05/17/23 05:59 Lansoprazole 30 Mg Soltab PO 06/15/23 06:29 30 mg DAILYBB CURLY Administration Lisinopril 2.5 mg 05/16/23 09:00 05/17/23 08:08 Lisinopril 2.5 Mg Tab PO 06/15/23 08:59 2.5 mg DAILY CURLY Administration Metoprolol Succinate 100 mg 05/16/23 21:00 05/17/23 08:07 Metoprolol Succ 50mg Ext Rel Tab PO 06/15/23 20:59 100 mg BID CURLY Administration Polyethylene Glycol 17 gm 05/16/23 16:15 05/17/23 08:08 Polyethylene (Miralax) 17 Gm Pack PO 06/15/23 16:14 Not Given DAILY CURLY Potassium Chloride 10 meq 05/16/23 09:00 05/17/23 08:08 Potassium Chloride 10 Meq Tabcr PO 06/15/23 08:59 10 meq QAM CURLY Administration Pravastatin Sodium 40 mg 05/16/23 21:00 05/16/23 20:05 Pravastatin Sod 40 Mg Tab PO 06/15/23 20:59 40 mg HS CURLY Administration Senna/Docusate Sodium 1 tab 05/16/23 16:15 05/17/23 08:07 Docusate Sodium/Senna 50/8.6mg Tab PO 06/15/23 16:14 1 tab QAM CURLY Administration Spironolactone 12.5 mg 05/16/23 09:00 05/16/23 07:51 Spironolactone 12.5 Mg Tab PO 06/15/23 08:59 12.5 mg [id number]@0900 CURLY Administration Vitamin D 50 mcg 05/16/23 09:00 05/17/23 08:07 Cholecalciferol 25 Mcg (1000 Units) Tab PO 06/15/23 08:59 50 mcg DAILY CURLY Administration
[2023-05-17 21:25] LABS: INR 1.5 (0.9-1.1); Prothrombin Time 15.9 Seconds (9.0-12.0)
--- NOTE | 2023-05-17 21:34 | Communication Note ---
Date of Service: May 17, 2023 INR =1.5 Plan: start heparin bridge. Weight based, full dose, no loading bolus. Stop tomorrow at 4 am. Discussed with pts nurse by phone Dale Rodriguez DO
[2023-05-17] MEDS: HEPARIN SODIUM/DEXTROSE 25,000 UNITS/500 ML BAG IV SCH (22:45)
[2023-05-17] MEDS: Heparin IV Adult Wt-Based Standard *NO* INITIAL Bolus Protocol IV STA (22:50)
[2023-05-17 22:58] LABS: Partial Thromboplastin Ratio 1.1; Partial Thromboplastin Time 31 Seconds (21-31)
[2023-05-18 06:19] LABS: Hematocrit (blood only) 38.5 % (37.0-47.0); Hemoglobin 12.9 g/dl (12.0-16.0); Mean Corpuscular Hemoglobin 29.5 pg (25.0-34.0); Mean Corpuscular Hgb Conc 33.5 g/dL (32.0-36.0); Mean Corpuscular Volume 87.9 fL (80.0-100.0); Mean Platelet Volume 10.9 fL (9.4-12.4); Platelet Count 189 K/uL (130-400); RDW Coefficient of Variation 13.9 % (11.5-14.5); RDW Standard Deviation 44.7 fL (36.4-46.3); Red Blood Count 4.38 M/uL (4.20-5.40); White Blood Count 5.34 K/ul (4.8-10.8)
[2023-05-18 06:29] LABS: Calcium 8.4 mg/dl (8.6-10.3); Creatinine Clr Calc Pharmacy 48.7 ml/min; Est GFR (Non-African American) 60.4 ml/min; Magnesium 1.8 mg/dl (1.7-2.4); Phosphorus 3.3 mg/dl (2.5-4.9); Potassium 3.7 mmol/L (3.5-5.1)
[2023-05-18 06:38] LABS: INR 1.2 (0.9-1.1); Prothrombin Time 13.5 Seconds (9.0-12.0)
--- NOTE | 2023-05-18 06:55 | Cardiology Progress Note ---
Date of Service May 18, 2023 Assessment & Plan (1) Narrow complex tachycardia: (2) Heart palpitations: (3) Tachy-syed syndrome: (4) History of pacemaker: Plan IMPRESSION: 82 year old female with known history of PAF/Flutter, s/p DCCV on 05/09/2023 with recurrent narrow complex tachycardia noted on telemetry-Rates 100-110s. Symptomatic with palpitations and fatigue. Elevated CHADSVASC score-- anticoagulated on Coumadin-- now on hold as of 05/16/2023. Echo 02/2023 with preserved LVEF, RA/LA normal in size, Moderate MR/TR-- questionable if patient will be able to maintain NSR given findings. PLAN: Narrow complex tachycardia: 1. Permanent pacemaker interrogation performed as described previously-- narrow complex tachycardia consistent with possible atrial tach vs accelerated junctional. Flecainide dc'd (05/16/2023) 2. Continue metoprolol succinate 100 mg BID and Diltazem infusion. 3. Given complex atrial arrhythmias including atrial fibrillation, atrial flutter, and atrial tachycardia, recommend proceeding with an AV node ablation-- patient scheduled for this afternoon. 4. INR 1.2 this am-- Heparin gtt on hold since 0400 for potential AVN ablation. 5. Consider transitioning to Eliquis post procedure. Hypertension: 1. Continue lisinopril and spironolactone. Norvasc discontinued 05/16 with Diltiazem infusion. Case discussed with Dr. Rodriguez. Will follow. I spent a total of 30 minutes on the date of service in preparation, delivery, and documentation of the care provided to the patient excluding any time spent in the performance of separately billed services. SUPRIYA Kathleen Department of Cardiology, [facility] This chart was completed in part utilizing Speech Voice Recognition Software. Grammatical errors, random word insertions, pronoun errors, and incomplete sentences are an occasional consequence of this system due to software limitations, ambient noise, and hardware issues. Any formal questions or concerns about the content, text, or information contained within the body of this dictation should be directly addressed to the provider for clarification. Admission and Anticipated Discharge Date Admission Date: May 16, 2023 Supervising Physician Co-Signing Physician Notes Attending attestation: Case reviewed with the advanced practitioner. I have personally performed a history and physical examination on the patient. I have reviewed the advanced practitioner's documentation on the date of service referenced in note, and I agree with, and take responsibility for the plan of care. Subjective: Patient seen by the undersigned in room 207 at approximately 1630. Son at the bedside. Patient seen status post AV junction no ablation procedure via the right femoral vein approach. Telemetry now reveals sinus rhythm with AV sequential pacing. Per my discussion of her procedure with Dr. Prater, pt in sinus rhythm during the procedure. She is now AV sequential paced with lower rate of 80. Tolerated the procedure and feels well Exam: Right groin femoral venous puncture site clean dry and intact, no hematoma Data: INR today 05/18/2023: 1.2 Impression/ Plan: -Problem list as noted above -Discontinue IV diltiazem -Reduce metoprolol succinate from 100 mg twice daily to 50 mg twice daily -With regards to anticoagulation, Coumadin to be replaced with Eliquis, first dose 05/18/2023 at 2100. Per discussion with family, anticipate patient will qualify for PACE. -Questions answered to the patient/son's satisfaction. I spent a total of 20 minutes coordinating, documenting, and providing care for this patient excluding time spent in the performance of separately billed services or time spent by another provider. Anuel Rodriguez, DO Subjective 82 year old female with known history of paroxysmal atrial fibrillation/flutter status post cardioversion 05/09/2023 with recurrent narrow complex tachycardia seen on telemetry. Patient underwent administration of adenosine x 2 without change in heart rhythm. There was question if the patient was in supraventricular tachycardia and if properties of the tachycardia were related to flecainide treatment. Accelerated junctional prolonged rhythm was also a possibility. Pacemaker device interrogation reviewed with EP. Flecainide was discontinued and metoprolol succinate was increased to 100 mg daily. Diltiazem infusion was started. Change in rhythm on telemetry and EKG yesterday afternoon. Repeat pacemaker interrogation performed. Patient appeared to be in an atrial tach with rapid rates in the 100s to 110s. Atrial tach persisted despite up titration of diltiazem. Pacemaker mode changed to DDIR with lower rate of 60 which has resolved her tachycardia in the short-term, with loss of AV synchrony however. 05/16: Coumadin placed on hold for possible AV node ablation. Metoprolol and IV dilt continued for rate control. Tele: Atrial fibrillation and paced 60s to 70s with conduction changes. 05/17: INR remained elevated at 4.2 despite holding of Coumadin. X 1 dose of IV vitamin K 2.5 mg given. Repeat INR 2.1 midday. Repeat INR 1.5. Heparin drip started. 05/18: Tele: AFIB/paced 60-70s INR this morning 1.2. Heparin placed on hold at 4 AM Upon entrance into the room patient resting comfortably in bed. Has been up ambulating in the room to the bathroom. Notes generalized weakness and fatigue however symptoms are improved compared to yesterday. Denies any exertional chest pain, unusual shortness of breath. No palpitations lightheadedness or dizziness. No orthopnea or PND. No lower extremity edema. Review of Systems Review of Systems: All systems reviewed & are unremarkable except as noted in HPI & below Physical Exam Constitutional: WD/WN, vitals as above no acute distress Eyes: PERRL, conjunctivae normal, anicteric sclerae Respiratory: normal respiratory effort, lungs clear to auscultation Cardiovascular: Rate/Rhythm: regular rate and + irregularly irregular Heart Sounds: normal S1 and normal S2 Vessels: no JVD Extremities: + edema (trace BL nonpitting ) Chest (Breasts): Chest: + pacemaker (left chest ) Gastrointestinal (Abdomen): normal bowel sounds, soft, nontender, no hepatosplenomegaly Skin: no rashes, warm and dry Psychiatric: Orientation: alert and oriented x 3 Results & Data Vital Signs (Past 12 Hours) Vital Signs Temp Pulse Pulse Resp BP Pulse Ox O2 Del Method 05/18/23 03:40 36.7 C 75 16 124/79 95 CPAP 05/17/23 23:27 36.6 C 81 17 143/73 H 94 CPAP 05/17/23 22:00 85 05/17/23 20:45 Room Air 05/17/23 19:16 36.4 C L 74 17 117/76 95 Room Air Laboratory Results Coagulation 05/17/23 05/17/23 05/17/23 Range/Units 14:07 20:36 20:43 PT 22.0 H 15.9 H (9.0-12.0) Seconds APTT 31 (21-31) Seconds 05/18/23 Range/Units 05:40 PT 13.5 H (9.0-12.0) Seconds APTT (21-31) Seconds CBC 05/18/23 Range/Units 05:40 WBC 5.34 (4.8-10.8) K/ul RBC 4.38 (4.20-5.40) M/uL Hgb 12.9 (12.0-16.0) g/dl Hct 38.5 (37.0-47.0) % Plt Count 189 (130-400) K/uL Comprehensive Metabolic Panel 05/18/23 Range/Units 05:40 Sodium 137 (136-145) mmol/L Potassium 3.7 (3.5-5.1) mmol/L Chloride 105 (98-107) mmol/L Carbon Dioxide 25 (21-32) mmol/L BUN 18 (6-23) mg/dl Creatinine 0.90 (0.6-1.2) mg/dl Glucose 94 (70-99(Fasting)) mg/dl Calcium 8.4 L (8.6-10.3) mg/dl Intake and Output 05/17/23 05/18/23 05/18/23 22:59 06:59 14:59 Intake Total 432.125 / 797.875 115.5 / 797.875 89.25 / 89.25 Output Total 490 / 490 200 / 200 Balance 432.125 / 307.875 -374.5 / 307.875 -110.75 / -110.75 Intake: IV 132.125 / 297.875 115.5 / 297.875 89.25 / 89.25 Heparin Sodium/Dextrose 25,000 115.5 / 115.5 units In 500 ml @ 1,100 UNITS/ HR 22 mls/hr IV .[id number] CURLY Rx #:[id number] dilTIAZem HCL 125 mg In 132.125 / 132.125 89.25 / 89.25 Dextrose 5% 100 ml @ 7.5 MG/HR 7.5 mls/hr IV .[id number] CURLY Rx#: [id number] Oral 300 / 500 Output: Urine 490 / 490 200 / 200 Other: Other Intake Source NPO NPO # Unmeasured Voids 2 Weight 69.1 kg Weight Measurement Method Built in [facility]
--- NOTE | 2023-05-18 12:21 | History & Physical Bridge Note ---
Date of Service May 18, 2023 History & Physical Bridge Note I have examined the patient, reviewed the History & Physical and in the interval since the performance of the History & Physical I have noted the following changes of clinical significance: no changes noted
--- NOTE | 2023-05-18 12:22 | History & Physical Bridge Note ---
Date of Service May 18, 2023 History & Physical Bridge Note I have examined the patient, reviewed the History & Physical and in the interval since the performance of the History & Physical I have noted the following changes of clinical significance: pt with recurrent symptomatic AF with RVR despited AVN blockers; recommend AVN ablation; discussed the procedure and potential risks-pt expressed an understanding and consents signed.
--- NOTE | 2023-05-18 12:23 | Pre Anesthesia Assessment ---
Date of Service May 18, 2023 Pre Sedation Assessment Vital Signs Temp Pulse Pulse Resp BP BP Pulse Ox 05/18/23 08:10 36.6 C 63 18 127/67 95 05/18/23 03:40 36.7 C 75 16 124/79 95 05/17/23 23:27 36.6 C 81 17 143/73 H 94 05/17/23 22:00 85 05/17/23 20:45 05/17/23 19:16 36.4 C L 74 17 117/76 95 05/17/23 15:32 36.6 C 80 18 113/72 93 O2 Del Method 05/18/23 08:10 Room Air 05/18/23 03:40 CPAP 05/17/23 23:27 CPAP 05/17/23 22:00 05/17/23 20:45 Room Air 05/17/23 19:16 Room Air 05/17/23 15:32 Room Air Cardiovascular RRR, no murmur, no edema Respiratory normal respiratory effort, lungs clear to auscultation Pre-Sedation Airway Assessment Smoking Status: Never smoker Hx Sleep Apnea: Yes (sometimes snores, uses CPAP) Hx Difficult Intubation: No Thyromental Distance: < 3.5 Finger Breadths Oral Cavity: + Dentures and + Dental Abnormalities Mallampati Class: II ASA: ASA3 NPO Status Date of Last Intake of Fluids: 05/17/23 Date of Last Intake of Solid Food: 05/17/23 Procedure Planning Contraindications for Sedation: none Current Medications Reviewed: Yes Notes The planned sedation has been discussed with the patient. Informed Consent was obtained. I have identified the patient, determined the appropriateness of sedation and have assessed the patient immediately prior to the procedure. All medicine(s) and interventions are by my order.
[2023-05-18] MEDS: ceFAZolin 330 MG/ML 1 GM VIAL ONE (12:58)
[2023-05-18] MEDS: fentaNYL citrate PF 100 MCG/2 ML VIAL ONE (12:59)
[2023-05-18] MEDS: LIDOCAINE 1% LOCAL 20 ML VIAL ONE (12:59)
[2023-05-18] MEDS: MIDAZOLAM HCL 5 MG/ML 1 ML VIAL ONE (12:59)
--- NOTE | 2023-05-18 13:17 | Operative Report ---
Post Operative Report DATE OF PROCEDURE: 05/18/2023 PREOPERATIVE DIAGNOSIS: Atrial fibrillation with RVR POSTOPERATIVE DIAGNOSIS: same plus complete heart block PROCEDURES PERFORMED: ultrasound guidance venous access, radiofrequency ablation of the AV junction, 3D mapping of His bundle EGM recordings under fluoroscopic guidance along with BiV ICD interrogation and reprogramming SURGEON: Amie Prater DO. MAILHOUSE OPERATOR: None. ANESTHESIA: Monitored conscious sedation administered under my supervision by César Watson Start time 12:35 and end time 13:15. A total of 2 mg of Versed and 50 mcg of fentanyl. INTRAVENOUS FLUIDS: 100mL. BLOOD LOSS: 5 mL URINE OUTPUT: Not applicable. SPECIMENS: None. FINDINGS: See below. DRAINS: None. COMPLICATIONS: None. CONDITION: Stable. INDICATIONS: This is a 82-year-old female who has a past medical history recurrent atrial arrhythmias with RVR and then acute CHF episodes, TBS h/p ppm back in 09/02/2021, HLD. She was recommended AVN ablation prior to hospital discharge given the recurrent acute CHF and symptomatic atrial arrhythmias. CONSENT: Consent was obtained prior to the patient going into the electrophysiology lab. The patient was informed of risks, benefits, and alternatives to the procedure. Risks include, but not limited to sudden cardiac , cardiac arrhythmias, cerebrovascular accident, myocardial infarction, injury to the blood vessels, chamber of the heart, or the [place] electrical system where she would need a permanent pacemaker, bleeding, and infection. The patient understood these risks and agreed to the procedure as planned. Informed consent was obtained. DESCRIPTION OF PROCEDURE: The patient was brought into the electrophysiology lab in a fasting state. She was connected to continuous cardiac monitoring. A time-out was performed to ensure the patient identity and procedure correctly. She was prepped and draped over bilateral groins in normal surgical standard fashion. Monitored conscious sedation was given throughout the procedure for the patient's comfort level. [place] precautions were maintained throughout the procedure. A 10 mL of 1% lidocaine-bupivacaine mixture were given in the right groin for local anesthesia. Then, using the modified Seldinger technique under ultrasound guidance, venous access was obtained in the following manner. The right femoral vein had an 8-[place] sheath followed by a Non-irrigated 8mm PrimeSense ablation catheter. The dual ppm was interrogated and reprogrammed for the ablation-see below. The 3D anatomical mapping of the HIS bundle was performed: HIS EGM was found; AH 73ms HV 61ms when the camera was in [place] 30. Then radiofrequency ablation was performed at 70 [place]. The patient quickly went into complete heart block with ventricular pacing. Then re-ensurace morales were given totaling about 3 minutes. After a post ablation waiting time; we confirmed the patient was still in complete heart block. The dual ppm was interrogated and reprogrammed post ablation-see below. The catheter was removed from the body and the sheath was pulled and manual compression was used to establish hemostasis. Dual ppm Interrogation and reprogramming: Pre ablation: RA: 1.4mV; 437 ohms; 0.5V @ 0.4ms Left bundle: r waves 4.3mV; 551 ohms; 0.75V @ 0.4ms Reprogrammed: VVI 40 Post Ablation: RA: 0.9mV; 399 ohms; 0.75V @ 0.4ms Left bundle: R waves none; 570 ohms; 0.75V @ 0.4ms Reprogramming: DDDR 80 Left bundle amplitude increased to 3.5V RV capture management turned to monitor Left bundle sensitivity 2mV Left bundle lead monitor only MERCHANDISE CARRIER 150ms AF sensed 250ms Minimum PVARP 250ms PMT turnse on RA rate stabilization turned off Atrial preference pacing turned off Post mode switch turned on post mode switch rate 80bpm post mode swtich duration 5 min IMPRESSION: 1. Successful AV junction radiofrequency ablation with reprogramming of dual ppm secondary to AF with RVR and CHF. PLAN: Monitor the patient post-procedure. No heavy lifting or squatting for 1 week. The patient will follow up in the office in 1 month's time.
--- NOTE | 2023-05-18 13:49 | Communication Note ---
Date of Service: May 18, 2023 Spoke with patient and daughter regarding Eliquis and cost. Provided patient's daughter with the number to reach out to PACE. Joint combined income under $41,500 will qualify. Patient and daughter aware. PACE/[facility] Prescription Assistance Program (Program of All-Inclusive Care for the Elderly) [facility] prescription assistance programs for older adults offerlow-cost prescription medication to qualified residents, age 65 and older. This is a free program. There is no cost to apply. Call to apply. PACE Income Limits: Single: $33,500 : $41,500 [facility] -- Agree with plan as documented by SUPRIYA Kathleen,
--- NOTE | 2023-05-18 14:22 | Electrocardiogram Report ---
Test Reason : Blood Pressure : / mmHG Vent. Rate : 084 BPM Atrial Rate : 093 BPM P-R Int : 000 ms QRS Dur : 104 ms QT Int : 410 ms P-R-T Axes : 000 -64 177 degrees QTc Int : 484 ms Atrial fibrillation Left axis deviation Prolonged QT Abnormal ECG When compared with ECG of 17-MAY-2023 06:06, (unconfirmed) Nonspecific T wave abnormality, worse in Inferior leads Confirmed by Demetris Barlow ([id number]) on 05/18/2023 2:22:10 PM Referred By: REFERRED SELF Confirmed By:Mahin Barlow
--- NOTE | 2023-05-18 14:22 | Electrocardiogram Report ---
Test Reason : Blood Pressure : / mmHG Vent. Rate : 080 BPM Atrial Rate : 080 BPM P-R Int : 206 ms QRS Dur : 156 ms QT Int : 448 ms P-R-T Axes : 061 108 -74 degrees QTc Int : 516 ms AV dual-paced rhythm Abnormal ECG When compared with ECG of 18-MAY-2023 04:20, (unconfirmed) Electronic ventricular pacemaker has replaced Atrial fibrillation Confirmed by Demetris Barlow ([id number]) on 05/18/2023 2:21:49 PM Referred By: REFERRED SELF Confirmed By:Mahin Barlow
--- NOTE | 2023-05-18 14:24 | Electrocardiogram Report ---
Test Reason : Blood Pressure : / mmHG Vent. Rate : 113 BPM Atrial Rate : 117 BPM P-R Int : 000 ms QRS Dur : 108 ms QT Int : 370 ms P-R-T Axes : 000 -77 121 degrees QTc Int : 507 ms Poor data quality, interpretation may be adversely affected Supraventricular tachycardia Left axis deviation Low voltage QRS Incomplete right bundle branch block Inferior infarct , age undetermined Abnormal ECG Confirmed by Demetris Barlow ([id number]) on 05/18/2023 2:24:20 PM Referred By: REFERRED SELF Confirmed By:Mahin Barlow
--- NOTE | 2023-05-18 14:24 | Electrocardiogram Report ---
Test Reason : Blood Pressure : / mmHG Vent. Rate : 100 BPM Atrial Rate : 000 BPM P-R Int : 000 ms QRS Dur : 126 ms QT Int : 380 ms P-R-T Axes : 000 -79 093 degrees QTc Int : 490 ms Accelerated junctional rhythm Left axis deviation Right bundle branch block Inferior infarct , age undetermined T wave abnormality, consider lateral ischemia Abnormal ECG When compared with ECG of 15-MAY-2023 19:36, (unconfirmed) No significant change was found Confirmed by Demetris Barlow ([id number]) on 05/18/2023 2:23:43 PM Referred By: REFERRED SELF Confirmed By:Mahin Barlow
--- NOTE | 2023-05-18 14:25 | Electrocardiogram Report ---
Test Reason : Blood Pressure : / mmHG Vent. Rate : 107 BPM Atrial Rate : 104 BPM P-R Int : 000 ms QRS Dur : 178 ms QT Int : 432 ms P-R-T Axes : 000 129 -68 degrees QTc Int : 576 ms Ventricular-paced rhythm Abnormal ECG When compared with ECG of 16-MAY-2023 05:37, (unconfirmed) Electronic ventricular pacemaker has replaced Junctional rhythm Confirmed by Demetris Barlow ([id number]) on 05/18/2023 2:24:32 PM Referred By: REFERRED SELF Confirmed By:Mahin Barlow
--- NOTE | 2023-05-18 14:26 | Electrocardiogram Report ---
Test Reason : Blood Pressure : / mmHG Vent. Rate : 081 BPM Atrial Rate : 111 BPM P-R Int : 000 ms QRS Dur : 112 ms QT Int : 408 ms P-R-T Axes : 000 -75 130 degrees QTc Int : 473 ms Suspect unspecified pacemaker failure Sinus tachycardia with high grade AV block and demand ventricular pacing. Left axis deviation Abnormal ECG When compared with ECG of 16-MAY-2023 18:13, Atrial fibrillation has replaced Electronic ventricular pacemaker Confirmed by Demetris Barlow ([id number]) on 05/18/2023 2:25:56 PM Referred By: REFERRED SELF Confirmed By:Mahin Barlow
--- NOTE | 2023-05-18 16:41 | Hospitalist Progress Note ---
Date of Service May 18, 2023 Assessment & Plan (1) Heart palpitations: Plan: Ms. Uribe is an 82 year old woman history significant for hyperlipidemia, sleep apnea, paroxysmal atrial fibrillation, tachybradycardia syndrome, s/p pacemaker, hypertension, nonrheumatic aortic valve insufficiency, nonrheumatic mitral valve regurgitation, GERD, osteoporosis, essential tremor, history of GI bleed, who lives at her home with her admitted on 05/16 for evaluation of palpitations and found to have rates in 120-130s. Patient with recent history of cardioversion on 03/11/23 and 05/09/23. Noted racing sensation for last few days prompting presentation. On 05/16 Cardiology evaluated patient and notes reviewed: trialed adenosine x 2 without change in underlying rhythm. Question of SVT v accelerated junctional rhythm. On 05/17, Cardiology discussed with EP to pursure ablation. INR at 4.2 and now s/p IV 2.5mg at 2.1 this afternoon. Planning for possible AV node ablation tomorrow. #Symptomatic tachycardia, SVT v accelerated junctional rhythm #Atrial flutter/Atrial Fibrillation s/p cardioversion #Tachybradycardia syndrome s/p dcppm 2021 -PVI ablation in 2013; recently placed on flecainide and dose increased -Cardiology following -Discontinue flecainde -Continue metoprolol succinate 100mg BID (dose increased from home) -Discontinue amlodipine -Started on diltiazem drip -Hold AC with Coumadin -Goal INR 1.5 for ablation, s/p IV K -Repeat INR in am 05/18 for AV node ablation on Cardizem drip #Obstructive Sleep apnea CPAP nightly #Hyperlipidemia On statin #Hypertension #Heart failure with preserved EF On lisinopril, metoprolol succinate and amlodipine On spironolactone -Increased metoprolol as above -Discontinue amlodipine #GERD On Prevacid DVT prophylaxis SCDs Monitor INR Disposition Telemetry Full code Admission and Anticipated Discharge Date Admission Date: May 16, 2023 Subjective Follow-up for A-fib, etc. Seen resting in bed, sitting up Comfortable, not in distress States she feels fine overall no chest pain, dyspnea, palpitations, dizziness Review of Systems Review of Systems: all noted and negative except for above Physical Exam Physical Exam: General- oriented x 3, not in distress, speaks in sentences with no effort or accessory muscle use Eyes- anicteric Neck- no JVD Lungs- clear breath sounds bilaterally, no crackles or wheezing Heart- normal rate, regular rhythm; no murmurs Abdomen- normal bowel sounds, nondistended, soft, nontender Extremities- no pretibial edema, no calf tenderness Neuro- alert, oriented x 3; no gross focal neurologic deficits Skin- warm & dry Results & Data Results & Data Vital Signs (Past 12 Hours) Vital Signs Temp Pulse Resp BP Pulse Ox O2 Del Method 05/18/23 16:01 36.7 C 80 18 103/57 L 94 Room Air 05/18/23 14:38 78 20 127/75 Room Air 05/18/23 14:00 82 20 125/76 92 Room Air 05/18/23 13:44 80 16 110/76 98 Room Air 05/18/23 13:30 80 16 117/76 98 Room Air 05/18/23 12:00 78 16 131/92 98 Room Air 05/18/23 08:10 36.6 C 63 18 127/67 95 Room Air all noted and reviewed including below
[2023-05-18] MEDS: METOPROLOL SUCC 50MG EXT REL TAB PO SCH (20:38)
[2023-05-18] MEDS: APIXABAN 5 MG TABLET PO SCH (20:38)
--- NOTE | 2023-05-19 07:19 | Cardiology Progress Note ---
Date of Service May 19, 2023 Assessment & Plan (1) Narrow complex tachycardia: (2) Heart palpitations: (3) Tachy-syed syndrome: (4) History of pacemaker: (5) Hx of atrioventricular node ablation: Plan IMPRESSION: 82 year old female with known history of PAF/Flutter, s/p DCCV on 05/09/2023 with recurrent narrow complex tachycardia noted on telemetry-Rates 100-110s. Symptomatic with palpitations and fatigue. Elevated CHADSVASC score-- anticoagulated on Coumadin-- now on hold as of 05/16/2023. Echo 02/2023 with preserved LVEF, RA/LA normal in size, Moderate MR/TR-- questionable if patient will be able to maintain NSR given findings. Status post AV junction no ablation procedure via the right femoral vein approach. Telemetry now reveals sinus rhythm with AV sequential pacing. Per discussion of her procedure with Dr. Prater, pt in sinus rhythm during the procedure. She is now AV sequential paced with lower rate of 80. PLAN: Narrow complex tachycardia: 1. Continue metoprolol succinate 50 mg BID 2. Continue Eliquis 5 mg BID for stroke prevention-- Info for PACE given to family. Patient will need a 30 day free trial card until PACE can be implimented. Hypertension: 1. Continue Lisinopril, Spironolactone, and metoprolol as ordered. 2. Norvasc discontinued 05/16/2023. Consider restarting as an outpatient. PT consult ordered. Case discussed with Dr. Rodriguez. Will follow. I spent a total of 30 minutes on the date of service in preparation, delivery, and documentation of the care provided to the patient excluding any time spent in the performance of separately billed services. SUPRIYA Kathleen Department of Cardiology, [facility] This chart was completed in part utilizing Speech Voice Recognition Software. Grammatical errors, random word insertions, pronoun errors, and incomplete sentences are an occasional consequence of this system due to software limitations, ambient noise, and hardware issues. Any formal questions or concerns about the content, text, or information contained within the body of this dictation should be directly addressed to the provider for clarification. Admission and Anticipated Discharge Date Admission Date: May 16, 2023 Supervising Physician Co-Signing Physician Notes Attending attestation: Case reviewed with the advanced practitioner. I have personally performed a history and physical examination on the patient. I have reviewed the advanced practitioner's documentation on the date of service referenced in note, and I agree with, and take responsibility for the plan of care. Subjective: Feels well. Telemetry reveals SR, with AV sequential pacing in the 80s . 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 -Reduced metoprolol succinate from 100 mg twice daily to 50 mg twice daily -Eliquis rather than Coumadin. Working on PACE for coverage . -PT consult. Once ambulation status confirmed and Eliquis, discharge to home. Perhaps today. Dale Rodriguez , DO Subjective 82 year old female with known history of paroxysmal atrial fibrillation/flutter status post cardioversion 05/09/2023 with recurrent narrow complex tachycardia seen on telemetry. Patient underwent administration of adenosine x 2 without change in heart rhythm. There was question if the patient was in supraventricular tachycardia and if properties of the tachycardia were related to flecainide treatment. Accelerated junctional prolonged rhythm was also a possibility. Pacemaker device interrogation reviewed with EP. Flecainide was discontinued and metoprolol succinate was increased to 100 mg daily. Diltiazem infusion was started. Repeat pacemaker interrogation performed. Patient appeared to be in an atrial tach with rapid rates in the 100s to 110s. Atrial tach persisted despite up titration of diltiazem. Pacemaker mode changed to DDIR with lower rate of 60 which has resolved her tachycardia in the short-term, with loss of AV synchrony however. 05/16: Coumadin placed on hold for possible AV node ablation. Metoprolol and IV dilt continued for rate control. Tele: Atrial fibrillation and paced 60s to 70s with conduction changes. 05/17: INR remained elevated at 4.2 despite holding of Coumadin. X 1 dose of IV vitamin K 2.5 mg given. Repeat INR 2.1 midday. Repeat INR 1.5. Heparin drip started. 05/18: S/p AVN ablation with Dr. Prater-- pt in sinus rhythm during the procedure. IV diltiazem discontinued. Metoprolol succinate reduced to 50 mg BID (previously 100 mg BID) Coumadin dc'd in favor of Eliquis 5 mg BID (first dose 05/18/2023)-- Per discussion with family, anticipate patient will qualify for PACE. 05/19: Tele: AV paced in the 80s Upon entrance into the room patient resting comfortably in bed. Eager for discharge. Has been up ambulating in the room to the bathroom. Notes improvement in her energy level. No profound. No chest pain, shortness of breath, palpitations, dizziness, syncope or near syncope. No orthopnea, PND, or increased lower extremity edema. No fever, chills, cough, hematochezia, melena, or hemoptysis. Left groin site dressing clean and intact. No evidence of hematoma. Review of Systems Review of Systems: All systems reviewed & are unremarkable except as noted in HPI & below Physical Exam Constitutional: WD/WN, vitals as above no acute distress Eyes: PERRL, conjunctivae normal, anicteric sclerae Respiratory: normal respiratory effort, lungs clear to auscultation Cardiovascular: Rate/Rhythm: regular rate and regular rhythm Heart Sounds: normal S1 and normal S2 Vessels: no JVD Extremities: no edema Chest (Breasts): Chest: + pacemaker (left chest ) Gastrointestinal (Abdomen): normal bowel sounds, soft, nontender, no hepatosplenomegaly Musculoskeletal: left groin site clean and intact. no evidence of hematoma + pulses Skin: no rashes, warm and dry Psychiatric: Orientation: alert and oriented x 3 Results & Data Vital Signs (Past 12 Hours) Vital Signs Temp Pulse Pulse Resp BP Pulse Ox O2 Del Method 05/19/23 02:59 36.8 C 84 18 118/85 95 Room Air, CPAP 05/18/23 23:10 124/79 05/18/23 22:39 36.6 C 82 18 170/95 H 94 CPAP 05/18/23 22:00 80 05/18/23 19:31 37.0 C 80 18 131/80 93 Room Air Laboratory Results Intake and Output 05/18/23 05/19/23 05/19/23 22:59 06:59 14:59 Intake Total 285 / 402.875 Output Total 300 / 500 Balance 285 / -97.125 -300 / -97.125 Intake: IV 125 / 242.875 dilTIAZem HCL 125 mg In 125 / 242.875 Dextrose 5% 100 ml @ 7.5 MG/HR 7.5 mls/hr IV .[id number] [facility] Rx#: [id number] Oral 160 / 160 Output: Urine 300 / 500 Other: # Unmeasured Voids 1
--- NOTE | 2023-05-19 16:14 | Hospitalist Progress Note ---
Date of Service May 19, 2023 Assessment & Plan (1) Heart palpitations: Plan: Ms. Uribe is an 82 year old woman history significant for hyperlipidemia, sleep apnea, paroxysmal atrial fibrillation, tachybradycardia syndrome, s/p pacemaker, hypertension, nonrheumatic aortic valve insufficiency, nonrheumatic mitral valve regurgitation, GERD, osteoporosis, essential tremor, history of GI bleed, who lives at her home with her admitted on 05/16 for evaluation of palpitations and found to have rates in 120-130s. Patient with recent history of cardioversion on 03/11/23 and 05/09/23. Noted racing sensation for last few days prompting presentation. On 05/16 Cardiology evaluated patient and notes reviewed: trialed adenosine x 2 without change in underlying rhythm. Question of SVT v accelerated junctional rhythm. On 05/17, Cardiology discussed with EP to pursure ablation. INR at 4.2 and now s/p IV 2.5mg at 2.1 this afternoon. Planning for possible AV node ablation tomorrow. 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 -Reduced metoprolol succinate from 100 mg twice daily to 50 mg twice daily -Eliquis rather than Coumadin. Working on [employer] for coverage . Follow-up with Dr. Lauren June 17, 2023 at 11am. F/u with Dr. Prater and her nurse practitioner Aye sneed at [facility], [place] 06/17/2023 at 11am #Obstructive Sleep apnea CPAP nightly #Hyperlipidemia On statin #Hypertension #Heart failure with preserved EF On lisinopril,and amlodipine On spironolactone #GERD On Prevacid Admission and Anticipated Discharge Date Admission Date: May 16, 2023 Subjective Follow-up for A-fib, RVR, status post ablation, etc. Seen resting in bed, comfortable, not in distress States she feels fine overall no chest pain, dyspnea, palpitations, dizziness No bleeding No other new symptoms Review of Systems Review of Systems: all noted and negative except for above Physical Exam Physical Exam: General- oriented x 3, not in distress, speaks in sentences with no effort or accessory muscle use Eyes- anicteric Neck- no JVD Lungs- clear breath sounds bilaterally, no rales/wheezes Heart- normal rate, regular rhythm; no murmurs Abdomen- normal bowel sounds, nondistended, soft, nontender Extremities- no pretibial edema, no calf tenderness Neuro- alert, oriented x 3; no gross focal neurologic deficits Skin- warm & dry Results & Data Results & Data Vital Signs (Past 12 Hours) Vital Signs Temp Pulse Resp BP Pulse Ox O2 Del Method 05/19/23 16:02 36.7 C 81 22 118/77 96 Room Air 05/19/23 11:57 36.5 C 80 25 H 129/82 94 Room Air 05/19/23 07:59 36.6 C 82 19 143/87 H 95 Room Air all noted and reviewed including below
--- NOTE | 2023-05-19 16:18 | Discharge Summary ---
Discharge Summary Date of Service May 19, 2023 Notes For Next Care Provider Medication Changes From Visit Warfarin discontinued, transition to Eliquis 5 mg twice daily Metoprolol XL reduced from 100 to 50 mg twice daily Flecainide discontinued Admission HPI Per Admitting Provider 82-year-old female with past med history significant for hyperlipidemia, sleep apnea, paroxysmal atrial fibrillation, tachybradycardia syndrome, s/p pacemaker, hypertension, nonrheumatic aortic valve insufficiency, nonrheumatic mitral valve regurgitation, GERD, osteoporosis, essential tremor, history of GI bleed, who lives at her home with her comes because of palpitations. Patient was recently in the hospital for recurrent atrial flutter s/p cardioversion and flecainide dose was increased. Last few days she is feeling washed out and tired. Appetite is down. Today while in the kitchen she had episode of palpitations and dizziness which prompted her to come to the ER. In the ER her heart rates are okay. Denies any chest pain. Vision is not great and supposed to see ophthalmology next week. No runny nose or sore throat or cough. No fevers. No chest pains. No nausea. No abdominal pain. Normal bowel and bladder movements. Currently hemodynamics are stable. Past medical history. As mentioned above Past surgical history. Colonoscopy or EGD. Pulmonary vein isolation. Left knee arthroscopy. Laparoscopic cholecystectomy. S/p pacemaker. Bilateral cataract surgery. Right hip fracture fixation. Social history. . No smoking. No alcohol use. No drug use. Family history. Mother had diabetes. Hypertension. Father had emphysema. Sister had hypertension. Admission Exam Per Admitting Provider General- Not in distress. Head- atraumatic Eyes- PERRL. ENT- oropharynx clear Neck- supple, no JVD. Lungs- clear to auscultation no wheezing or crackles. Heart- irregular rhythm; no murmur, no gallop. Abdomen- normal bowel sounds, soft, nontender, no distension. Extremities- no pretibial edema, no erythema seen. Neuro- alert, oriented PERRL, no facial palsy; no dysarthria; moves extremities. Skin- warm & dry Principal Dx & Hospital Course #1 = Principal Diagnosis (1) Heart palpitations: Ms. Uribe is an 82 year old woman history significant for hyperlipidemia, sleep apnea, paroxysmal atrial fibrillation, tachybradycardia syndrome, s/p pacemaker, hypertension, nonrheumatic aortic valve insufficiency, nonrheumatic mitral valve regurgitation, GERD, osteoporosis, essential tremor, history of GI bleed, who lives at her home with her admitted on 05/16 for evaluation of palpitations and found to have rates in 120-130s. Patient with recent history of cardioversion on 03/11/23 and 05/09/23. Noted racing sensation for last few days prompting presentation. On 05/16 Cardiology evaluated patient and notes reviewed: trialed adenosine x 2 without change in underlying rhythm. Question of SVT v accelerated junctional rhythm. On 05/17, Cardiology discussed with EP to pursure ablation. INR at 4.2 and now s/p IV 2.5mg at 2.1 this afternoon. Planning for possible AV node ablation tomorrow. 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 -Reduced metoprolol succinate from 100 mg twice daily to 50 mg twice daily -Eliquis rather than Coumadin. Working on [employer] for coverage . Follow-up with Dr. Lauren June 17, 2023 at 11am. F/u with Dr. Prater and her nurse practitioner Aye sneed at [facility] cardiology 06/17/2023 at 11am #Obstructive Sleep apnea CPAP nightly #Hyperlipidemia On statin #Hypertension #Heart failure with preserved EF On lisinopril,and amlodipine On spironolactone #GERD On Prevacid Discharge Exam General- oriented x 3, not in distress, speaks in sentences with no effort or accessory muscle use Eyes- anicteric Neck- no JVD Lungs- clear breath sounds bilaterally, no rales/wheezes Heart- normal rate, regular rhythm; no murmurs Abdomen- normal bowel sounds, nondistended, soft, nontender Extremities- no pretibial edema, no calf tenderness Neuro- alert, oriented x 3; no gross focal neurologic deficits Skin- warm & dry Updated Medication List Medication Instructions Recorded Confirmed Type amlodipine 5 mg tablet 5 mg PO QAM 05/29/18 05/16/23 History pravastatin 40 mg tablet 40 mg PO HS 05/29/18 05/16/23 History potassium chloride 10 mEq 10 meq PO QAM 06/05/18 05/16/23 History tablet,extended release(part/cryst) (Klor-Con M) lansoprazole 30 mg capsule,delayed 30 mg PO DAILYBB 04/10/21 05/16/23 History release (Prevacid) spironolactone 25 mg tablet 12.5 mg PO MOWEFR 09/05/21 05/16/23 History calcium carbonate 600 mg calcium 600 mg PO DAILY 09/06/21 05/16/23 History (1,500 mg) tablet (Calcium) cholecalciferol (vitamin D3) 50 50 mcg PO DAILY 09/06/21 05/16/23 History mcg (2,000 unit) tablet (Vitamin D3) lisinopril 2.5 mg tablet 2.5 mg PO DAILY #30 tabs 03/11/23 05/16/23 Rx apixaban 5 mg tablet (Eliquis) 5 mg PO BID 30 days #60 tabs 05/19/23 Rx metoprolol succinate 50 mg 50 mg PO BID 30 days #60 tabs 05/19/23 Rx tablet,extended release 24 hr Hospital Stay Data Consultations 05/15/23 21:55 ED Decision to Admit Stat 05/16/23 08:00 Consult Cardiology Routine Procedures Performed Operation Date: 05/18/23 12:00 Actual Procedures p AV Node Ablation - Amie Prater DO Diagnostic Imagining Performed 05/18/23 06:45 EP Lab Images for PACS ONCE Pending Results Patient Have Any Pending Studies at Discharge: No Discharge Instructions Given to Patient (Per Discharging Provider) F/u with Dr. Prater and her nurse practitioner Aye sneed at [facility] cardiology 06/17/2023 at 11am PLEASE REFER TO YOUR NEW MEDICATION LIST AND FOLLOW INSTRUCTIONS CAREFULLY. YOUR NEW MEDICATIONS INCLUDE: Eliquis- this will be your new blood thinner Reduce metoprolol XL to 50 mg twice a day. Stop Coumadin. Stop flecainide. PLEASE CALL YOUR PRIMARY CARE PHYSICIAN OR RETURN TO THE ER IF WITH WORSENING OF SYMPTOMS, INCLUDING Chest pain, palpitations, dizziness, shortness of breath, etc. FOLLOW UP WITH PRIMARY CARE PHYSICIAN OUTLINED ABOVE. FOLLOW-UP WITH SAMPLE CASE PORTER OUTLINED ABOVE. Total Time Total Time Spent Total Time Spent (In Minutes): >30 minutes
== END 2023-05-19 17:29 | disposition home or self-care (01) | DRG 274 ==
LOC: ED 19:18 → 1E 05-16 00:19 → SUATTDRO 05-16 00:19 → 1E 05-16 02:06 → 2E 05-17 04:19

== ENCOUNTER 2023-08-06 22:04 | Inpatient (IN) ==
--- NOTE | 2023-08-06 22:18 | Emergency Department Note ---
History of Present Illness General Chief complaint: Headache Stated complaint: HEADACHE, lt AXILLA PAIN Time Seen by Provider: 08/06/23 22:10 History of Present Illness This 83-year-old female on Eliquis presents ER complaining of severe headache for the past week. Patient was seen here the other day with no acute findings noted. Patient states her headache got much worse today which prompted her to come back to the ER. She also complains of chest pain. Patient denies vision changes, abdominal pain, vomiting, diarrhea, fever, chills, numbness, tingling, localized weakness, recent illness. EMS gave nitroglycerin for the chest pain. Patient states no change in her symptoms. Home Medications Medication Instructions Recorded Confirmed Type pravastatin 40 mg tablet 40 mg PO HS 05/29/18 08/07/23 History potassium chloride 10 mEq 10 meq PO QAM 06/05/18 08/07/23 History tablet,extended release(part/cryst) (Klor-Con M) lansoprazole 30 mg capsule,delayed 30 mg PO DAILYBB 04/10/21 08/07/23 History release (Prevacid) spironolactone 25 mg tablet 12.5 mg PO MOWEFR 09/05/21 08/07/23 History calcium carbonate (Calcium 600) 600 mg PO DAILY 09/06/21 08/07/23 History cholecalciferol (vitamin D3) 50 50 mcg PO DAILY 09/06/21 08/07/23 History mcg (2,000 unit) tablet (Vitamin D3) lisinopril 2.5 mg tablet 2.5 mg PO DAILY #30 tabs 03/11/23 08/07/23 Rx apixaban 5 mg tablet (Eliquis) 5 mg PO BID 30 days #60 tabs 05/19/23 08/07/23 Rx metoprolol succinate 50 mg 50 mg PO BID 30 days #60 tabs 05/19/23 08/07/23 Rx tablet,extended release 24 hr Allergies Allergy/AdvReac Type Severity Reaction Status Date / Time Penicillins Allergy Unknown RASH Verified 08/07/23 00:12 Past Med/Surg History Medical History Tachy-syed syndrome History of pacemaker Pacemaker HLD (hyperlipidemia) FEDERICO (acute kidney injury) Weakness Shortness of breath Hiatal hernia Upper GI bleed Compression fracture of T11 vertebra HTN (hypertension) Atrial fibrillation Obstructive sleep apnea CKD (chronic kidney disease) stage 3, GFR 30-59 ml/min GERD (gastroesophageal reflux disease) Surgical History S/P cholecystectomy Family History Other Diabetes Hypertension Social History Smoking Status: Never smoker Second Hand Exposure: No; Do You Dip or Chew Tobacco: No; Hx Alcohol Use: No Hx Substance Use: No Preferred Language: Khmer Communication Ability: Effective Visual Impairment: No Limitations Hearing Ability: Normal Manager Nuclear Required: No Beliefs That Will Affect Care: None Current Living Situation: Spouse Current Living Situation Comment: home with Feels Safe at Home: Yes Safety Concerns: Feels Safe At This Time Assistive Devices: Denture - Upper, Denture - Lower and Glasses Assistive Devices Comment: dentures with Review of Systems A total of 10 systems reviewed and were otherwise negative Physical Exam Vital Signs Vital Signs - 24 hr 08/06/23 22:13 08/06/23 22:44 08/06/23 22:51 Temperature 37.1 C Temperature Source Oral Pulse Rate 67 63 Pulse Rate [Apical] 62 Pulse Rhythm Regular Pulse Strength Normal Respiratory Rate 20 16 Respiratory Effort / Characteristics Non-Labored Accessory Muscle Use Non-Labored Respiratory Depth Normal Normal Respiratory Pattern Regular Regular Blood Pressure 154/101 H Blood Pressure [Right Arm] 132/75 Blood Pressure Mean 118 Blood Pressure Mean [Right Arm] 94 Blood Pressure Position Lying Blood Pressure Position [Right Arm] Sitting Pulse Oximetry 96 96 Oxygen Delivery Method Room Air Room Air Sepsis Recent Fever Within 48 Hours No Sepsis New/Unexplained Change in Mental Status No Sepsis Action Taken by Nursing No Action Required 08/06/23 23:30 08/07/23 00:00 Temperature Temperature Source Pulse Rate Pulse Rate [Apical] 60 60 Pulse Rhythm Pulse Strength Respiratory Rate 16 16 Respiratory Effort / Characteristics Non-Labored Non-Labored Respiratory Depth Normal Normal Respiratory Pattern Regular Regular Blood Pressure Blood Pressure [Right Arm] 142/73 H 145/80 H Blood Pressure Mean Blood Pressure Mean [Right Arm] 96 101 Blood Pressure Position Blood Pressure Position [Right Arm] Sitting Sitting Pulse Oximetry 96 96 Oxygen Delivery Method Room Air Room Air Sepsis Recent Fever Within 48 Hours Sepsis New/Unexplained Change in Mental Status Sepsis Action Taken by Nursing VITALS: Vitals are noted on the nurse's note and reviewed by myself. Vital signs stable. GENERAL: Pleasant elderly female following commands, in no acute distress, nondiaphoretic, well-developed well-nourished. SKIN: The skin was without rashes, erythema, edema, or bruising. There is no tenting of the skin. Capillary reflex less than 2 seconds. HEAD: Normocephalic atraumatic. EARS: External auditory canals clear EYES: Pupils equal round and reactive to light and accommodation. Conjunctivae without injection, sclerae without icterus. Extraocular movements intact. NOSE: Patent, no discharge. MOUTH: Mucous membranes moist. Pharynx without erythema or exudate. Uvula midline. Airway patent. Tongue does not deviate. NECK: Supple without nuchal rigidity. No lymphadenopathy. No thyromegaly. Cervical spine is nontender. No JVD. HEART: Regular rate and rhythm LUNGS: Clear to auscultation bilaterally without wheezes, rales or rhonchi. No retractions or accessory muscle use. ABDOMEN: Positive bowel sounds x 4. Normal tympanic percussion. Soft, nontender, without masses or organomegaly. Dubois sign negative. No guarding or rebound tenderness. No CVA tenderness MUSCULOSKELETAL: No muscle atrophy, erythema, or edema noted. 5-5 strength throughout NEURO: Patient was alert and oriented to person place and time. Normal sensation to light and sharp touch. Cranial nerves II through XII grossly intact. No pronator drift. Cerebellar exam intact. No focal neurological deficits. Course Administered Medications Acetaminophen (Acetaminophen 325 Mg Tab) 650 mg PO Q4H PRN PRN Reason: Pain or Fever Stop: 09/06/23 02:20 Last Admin: 08/07/23 02:48 Dose: 650 mg Documented By: LATONYA Sodium Chloride (Nss) 1,000 mls @ 80 mls/hr IV .[id number] [facility] Stop: 08/07/23 14:50 Last Admin: 08/07/23 02:48 Dose: 80 mls/hr Documented By: LATONYA Pantoprazole Sodium (Pantoprazole 40 Mg Tab) 40 mg PO DAILYBB [facility] Stop: 09/06/23 06:29 Last Admin: 08/07/23 03:27 Dose: 40 mg Documented By: LATONYA Discontinued Medications Acetaminophen (Ofirmev) 1,000 mg in 100 mls @ 400 mls/hr IV NOW STA Stop: 08/06/23 22:26 Last Infusion: 08/06/23 22:54 Dose: Infused Documented By: Admin: 08/06/23 22:36 Dose: 400 mls/hr Documented By: CEDRIC Magnesium Sulfate/Dextrose (Magnesium Sulfate / D5w) 1 gm in 100 mls @ 100 mls/hr IV NOW STA Stop: 08/07/23 00:54 Last Infusion: 08/07/23 01:03 Dose: Infused Documented By: Admin: 08/07/23 00:03 Dose: 100 mls/hr Documented By: CEDRIC Ioversol (Optiray 320 125ml) 120 ml IV ONCE ONE Stop: 08/06/23 23:11 Last Admin: 08/06/23 23:10 Dose: 120 ml Documented By: WILLIAM Lisinopril (Lisinopril 10 Mg Tab) 10 mg PO NOW STA Stop: 08/07/23 03:10 Last Admin: 08/07/23 03:27 Dose: 10 mg Documented By: LATONYA Metoclopramide HCl (Metoclopramide Hcl Inj 5 Mg/Ml 2 Ml Vial) 5 mg IV ONE ONE Stop: 08/06/23 23:56 Last Admin: 08/07/23 00:03 Dose: 5 mg Documented By: CEDRIC Medical Decision Making Medical Records Attestation: I reviewed the patient's medical records. Home Medications Current Medication List: was personally reviewed by ks Laboratory Data Attestation: I reviewed the patient's lab results. 08/06/23 22:23 08/06/23 22:23 Lab Results 08/06/23 Range/Units 22:23 WBC 5.70 (4.8-10.8) K/ul RBC 4.02 L (4.20-5.40) M/uL Hgb 11.9 L (12.0-16.0) g/dl Hct 35.2 L (37.0-47.0) % MCV 87.6 (80.0-100.0) fL MCH 29.6 (25.0-34.0) pg MCHC 33.8 (32.0-36.0) g/dL RDW Std Deviation 41.2 (36.4-46.3) fL RDW Coeff of Kenrick 12.9 (11.5-14.5) % Plt Count 205 (130-400) K/uL MPV 10.7 (9.4-12.4) fL Immature Gran % (Auto) 0.4 % Neut % (Auto) 67.5 % Lymph % (Auto) 23.0 % Moffat % (Auto) 7.0 % Eos % (Auto) 1.6 % Baso % (Auto) 0.5 % Neut # (Auto) 3.85 (1.40-6.50) K/uL Lymph # (Auto) 1.31 (1.20-3.40) K/uL Moffat # (Auto) 0.40 (0.11-0.59) K/uL Eos # (Auto) 0.09 (0.00-0.50) K/uL Baso # (Auto) 0.03 (0.00-0.20) K/uL Immature Gran # (Auto) 0.02 (0.01-0.20) K/uL Sodium 136 (136-145) mmol/L Potassium 3.7 (3.5-5.1) mmol/L Chloride 103 (98-107) mmol/L Carbon Dioxide 25 (21-32) mmol/L Anion Gap 8 (3-11) BUN 16 (6-23) mg/dl Creatinine 0.85 (0.6-1.2) mg/dl Est Cr Clr Drug Dosing 51.1 ml/min Est GFR ( Amer) 74.5 ml/min Est GFR (Non-Af Amer) 64.3 ml/min BUN/Creatinine Ratio 18.8 (10-20) Glucose 101 H (70-99(Fasting)) mg/dl Calcium 8.8 (8.6-10.3) mg/dl Magnesium 1.9 (1.7-2.4) mg/dl Total Bilirubin 1.6 H (0.2-1.0) mg/dl AST 18 (13-39) U/L ALT 10 (7-52) U/L Alkaline Phosphatase 33 L (34-104) U/L Troponin I High Sens 12.0 (0-14) pg/ml Total Protein 6.5 (6.0-8.3) gm/dl Albumin 3.8 (3.4-5.0) gm/dl Globulin 2.7 (2.5-4.0) gm/dl Albumin/Globulin Ratio 1.4 (0.9-2) TSH 2.374 (0.300-4.500) uIu/ml Imaging Data Attestation: I personally reviewed and interpreted this imaging study as follows: Radiologist's Impression: Chest CTA 08/06/23 22:12 Exam(s): CTA CHEST With Contrast IV Amt: 120 cc opti 320 EXAM: CT Angiography Chest With Intravenous Contrast CLINICAL HISTORY: Reason for exam: cp. TECHNIQUE: Axial computed tomographic angiography images of the chest with intravenous contrast. CTDI is 14.8 mGy and DLP is 1383.96 mGy-cm. Automated exposure control was utilized for the study. A dose lowering technique was utilized adhering to the principles of ALARA. MIP reconstructed images were created and reviewed. CONTRAST: Patient received 120 cc opti 320 of IV contrast COMPARISON: No relevant prior studies available. FINDINGS: Pulmonary arteries: Enlarged main pulmonary arteries suggesting pulmonary arterial hypertension. No pulmonary embolism. Aorta: No acute findings. No thoracic aortic aneurysm. Lungs: Linear atelectasis left upper lobe. No mass. Pleural space: Unremarkable. No significant effusion. No pneumothorax. Heart: Cardiomegaly. No significant pericardial effusion. No evidence of RV dysfunction. Bones/joints: T11 vertebral body compression fracture resulting in 20% vertebral body height loss this is likely chronic in nature. No dislocation. Soft tissues: Unremarkable. Lymph nodes: Unremarkable. No enlarged lymph nodes. Gallbladder and bile ducts: Postoperative changes prior cholecystectomy. Tubes, lines and devices: Left chest wall intracardiac device. IMPRESSION: No acute findings in the visualized arteries of the chest. Findings consistent with pulmonary arterial hypertension Chronic T11 vertebral body compression fracture Electronically signed by: Pramod Eli MD 08/07/23 00:[address] 08/06/23 22:13 CR Exam(s): CT HEAD Without Contrast EXAM: CT Head Without Intravenous Contrast CLINICAL HISTORY: Reason for exam: neuro deficit, acute stroke suspected. TECHNIQUE: Axial computed tomography images of the head/brain without intravenous contrast. CTDI is 36.67 mGy and DLP is 1383.96 mGy-cm. Automated exposure control was utilized for the study. A dose lowering technique was utilized adhering to the principles of ALARA. COMPARISON: 08/04/2023 FINDINGS: Brain: Mild ischemic microangiopathy. No hemorrhage. Ventricles: Unremarkable. No ventriculomegaly. Bones/joints: Unremarkable. No acute fracture. Soft tissues: Unremarkable. Vasculature: Numerous calcified cortical vessels present. Sinuses: Unremarkable as visualized. No acute sinusitis. Mastoid air cells: Unremarkable as visualized. No mastoid effusion. IMPRESSION: No acute findings in the head/brain. Communications: Call Doctor Stroke Electronically signed by: Pramod Eli MD 08/06/23 23:43 PM Head CTA 08/06/23 22:13 CR Exam(s): CTA HEAD With Contrast IV Amt: 120 cc opti 320 EXAM: CT Angiography Head With Intravenous Contrast CLINICAL HISTORY: Reason for exam: neuro deficit, acute stroke suspected. TECHNIQUE: Axial computed tomographic angiography images of the head with intravenous contrast. CTDI is 36.67 mGy and DLP is 1383.96 mGy-cm. Automated exposure control was utilized for the study. A dose lowering technique was utilized adhering to the principles of ALARA. MIP reconstructed images were created and reviewed. CONTRAST: Patient received 120 cc opti 320 of IV contrast COMPARISON: No relevant prior studies available. FINDINGS: Right internal carotid artery: No acute findings. Intracranial segment is patent with no significant stenosis. No aneurysm. Right anterior cerebral artery: Unremarkable. No occlusion or significant stenosis. No aneurysm. Right middle cerebral artery: Unremarkable. No occlusion or significant stenosis. No aneurysm. Right posterior cerebral artery: Unremarkable. No occlusion or significant stenosis. No aneurysm. Right vertebral artery: Unremarkable as visualized. Left internal carotid artery: No acute findings. Intracranial segment is patent with no significant stenosis. No aneurysm. Left anterior cerebral artery: Unremarkable. No occlusion or significant stenosis. No aneurysm. Left middle cerebral artery: Unremarkable. No occlusion or significant stenosis. No aneurysm. Left posterior cerebral artery: Unremarkable. No occlusion or significant stenosis. No aneurysm. Left vertebral artery: Unremarkable as visualized. Basilar artery: Unremarkable. No occlusion or significant stenosis. No aneurysm. Brain: 1.2 x 1 cm enhancing extra-axial mass adjacent to the posterior mesial left occipital lobe. This is only faintly visualized on the symptoms and had a small amount of calcification. IMPRESSION: No acute findings in the arteries of the head/brain. 1.2 cm enhancing extra-axial mass adjacent to the posterior mesial aspect of the left occipital lobe. Findings likely represent a hemangioma. Nonemergent MRI may be obtained for confirmation. Communications: Call Doctor Stroke Electronically signed by: Pramod Eli MD 08/06/23 23:36 PM Neck CTA 08/06/23 22:13 CR Exam(s): CTA NECK With Contrast IV Amt: 120 cc opti 320 EXAM: CT Angiography Neck With Intravenous Contrast CLINICAL HISTORY: Reason for exam: neuro deficit, acute stroke suspected. TECHNIQUE: Routine carotid CT angiography protocol was performed with intravenous contrast. NASCET criteria using the distal ICAs for comparison were used for evaluation of stenoses. CTDI is 28.5 mGy and DLP is 1383.96 mGy-cm. Automated exposure control was utilized for the study. A dose lowering technique was utilized adhering to the principles of ALARA. MIP reconstructed images were created and reviewed. CONTRAST: Patient received 120 cc opti 320 of IV contrast COMPARISON: None. FINDINGS: VASCULATURE: Right common carotid artery: Unremarkable. No occlusion or significant stenosis. No dissection. Right internal carotid artery: Unremarkable. Extracranial segment is patent with no occlusion or significant stenosis. No dissection. Right external carotid artery: Unremarkable. No occlusion. Right vertebral artery: Unremarkable. No occlusion or significant stenosis. No dissection. Left common carotid artery: Unremarkable. No occlusion or significant stenosis. No dissection. Left internal carotid artery: Unremarkable. Extracranial segment is patent with no occlusion or significant stenosis. No dissection. Left external carotid artery: Unremarkable. No occlusion. Left vertebral artery: Unremarkable. No occlusion or significant stenosis. No dissection. NECK: Bones/joints: Unremarkable. No acute fracture. Soft tissues: Unremarkable. Lung apices: Clear. CAROTID STENOSIS REFERENCE USING NASCET CRITERIA: % ICA stenosis = (1 - narrowest ICA diameter/diameter of distal cervical ICA) x 100. Mild - <50% stenosis. Moderate - 50-69% stenosis. Severe - 70-94% stenosis. Near occlusion - 95-99% stenosis. Occluded - 100% stenosis. IMPRESSION: Negative CTA neck. Communications: Call Doctor Stroke Electronically signed by: Pramod Eli MD 08/06/23 23:37 PM MDM Narrative Prior records/ancillary studies reviewed. Additional history obtained from family. Triage Nursing notes reviewed. The patient's history was concerning for headache and chest pain. Differential diagnosis: Etiologies such as migraine headache, cardiac, meningitis, sinusitis, CO exposure, ICH, SAH, infection, tumor, headache, sinus thrombosis, arterial dissection, as well as others were entertained. Physical examination findings: As above. Non-focal. ER treatment provided: Tylenol, fluids On reassessment the patient felt better. Diagnostics interpreted by me: ECG: Ordered for chest pain EKG: Paced rhythm with no Sgarbossa. Impression atrial sensed ventricular paced rhythm independently interpreted by myself The labs Independently Interpreted by myself revealed no worrisome leukocytosis, mild anemia. Negative troponin. Imaging studies: Imaging as above and MRI was ordered HEART SCORE: Hx: high/mod/low suspicion: 0 ECG: ST depression/nonspecific changes/normal: 0 Age: Greater than 65/45-64/less than 45: 2 Risk factors: (Hypertension, hyperlipidemia, diabetes, coronary disease, tobacco use, cocaine use): 2 Troponin: Greater than 2 times normal limits/1-2 times normal limits/normal: 0 Total: 4 Consultation: A consultation was placed with the hospitalist. The case was discussed and diagnostics were reviewed. The patient was evaluated in the ER for further treatment. This appears to be consistent with ongoing headache with chest pain and hypertension. Patient still having a mild headache despite being medicated as above. MRI was ordered for possible hemangioma seen on imaging. Patient is agreeable to treatment plan of admission. Medicine was consulted and case discussed. Patient will be admitted to the medical service for further evaluation and workup.. By the evaluation outlined above emergent etiologies such as meningitis, sinusitis, CO exposure, ICH, SAH, infection, temporal arteritis, tumor, sinus thrombosis, arterial dissection, as well as others were deemed relatively unlikely. The pt informed about the findings as listed above. All questions were answered and pleased with the treatment. The chart was completed utilizing [employer] Speech voice recognition software. Grammatical errors, random word insertions, pronoun errors, and incomplete sentences are an occassional consequence of this system due to software limitations, ambient noise, and hardware issues. Any formal questions or concerns about the content, text, or information contained within the body of this dictation should be directly addressed to the physician carpenter assistant for clarification. Attending Attestation: I Dontrell Valerio MD I have reviewed the advanced practitioner's documentation and agree with the plan of care. I accept the responsibility for the associated risk of managing the patient. Given the patient's abnormal CT with complaints of headaches of the patient coming to the hospital for further evaluation and workup. Impression & Plan Headache, Chest pain Discharge Plan Visit Data Chief Complaint: Headache Stated Complaint: HEADACHE, lt AXILLA PAIN ED Provider: Dontrell Valerio ED Midlevel Provider: Rose Marie Katz Discharge Problem: Headache, Chest pain Patient Disposition: Admitted As Inpatient Condition: Good Discharge Instructions Interventions: ED Discharge Assessment Last Done: 08/07/23 02:06 Discharge Problem: Headache Qualifiers: Headache type: unspecified Headache chronicity pattern: acute headache I ntractability: not intractable Qualified Code(s): R51.9 - Headache, unspecified
[2023-08-06] MEDS: ACETAMINOPHEN 1,000 MG/100 ML VIAL IV STA (22:36)
[2023-08-06 22:37] LABS: Basophils # (auto) 0.03 K/uL (0.00-0.20); Basophils % (auto) 0.5 %; Eosinophils # (auto) 0.09 K/uL (0.00-0.50); Eosinophils % (auto) 1.6 %; Hematocrit (blood only) 35.2 % (37.0-47.0); Hemoglobin 11.9 g/dl (12.0-16.0); Immature Granulocytes # (auto) 0.02 K/uL (0.01-0.20); Immature Granulocytes % (auto) 0.4 %; Lymphocytes # (auto) 1.31 K/uL (1.20-3.40); Mean Corpuscular Hemoglobin 29.6 pg (25.0-34.0); Mean Corpuscular Hgb Conc 33.8 g/dL (32.0-36.0); Mean Corpuscular Volume 87.6 fL (80.0-100.0); Mean Platelet Volume 10.7 fL (9.4-12.4); Neutrophils # (auto) 3.85 K/uL (1.40-6.50); Neutrophils % (auto) 67.5 %; Platelet Count 205 K/uL (130-400); RDW Coefficient of Variation 12.9 % (11.5-14.5); RDW Standard Deviation 41.2 fL (36.4-46.3); Red Blood Count 4.02 M/uL (4.20-5.40)
[2023-08-06 22:50] LABS: Albumin Globulin Ratio 1.4 (0.9-2); Albumin Level 3.8 gm/dl (3.4-5.0); BUN Creatinine Ratio 18.8 (10-20); Bilirubin,Total 1.6 mg/dl (0.2-1.0); Calcium 8.8 mg/dl (8.6-10.3); Creatinine Clr Calc Pharmacy 51.1 ml/min; Est GFR (African American) 74.5 ml/min; Est GFR (Non-African American) 64.3 ml/min; Globulin 2.7 gm/dl (2.5-4.0); Magnesium 1.9 mg/dl (1.7-2.4); Potassium 3.7 mmol/L (3.5-5.1); Total Protein 6.5 gm/dl (6.0-8.3)
[2023-08-06 23:07] LABS: Thyroid Stimulating Hormone 2.374 uIu/ml (0.300-4.500)
[2023-08-06] MEDS: OPTIRAY 320 125ml IV ONE (23:10)
--- NOTE | 2023-08-06 23:37 | CT Scan Report ---
Exam(s): CTA HEAD With Contrast IV Amt: 120 cc opti 320 EXAM: CT Angiography Head With Intravenous Contrast CLINICAL HISTORY: Reason for exam: neuro deficit, acute stroke suspected. TECHNIQUE: Axial computed tomographic angiography images of the head with intravenous contrast. CTDI is 36.67 mGy and DLP is 1383.96 mGy-cm. Automated exposure control was utilized for the study. A dose lowering technique was utilized adhering to the principles of ALARA. MIP reconstructed images were created and reviewed. CONTRAST: Patient received 120 cc opti 320 of IV contrast COMPARISON: No relevant prior studies available. FINDINGS: Right internal carotid artery: No acute findings. Intracranial segment is patent with no significant stenosis. No aneurysm. Right anterior cerebral artery: Unremarkable. No occlusion or significant stenosis. No aneurysm. Right middle cerebral artery: Unremarkable. No occlusion or significant stenosis. No aneurysm. Right posterior cerebral artery: Unremarkable. No occlusion or significant stenosis. No aneurysm. Right vertebral artery: Unremarkable as visualized. Left internal carotid artery: No acute findings. Intracranial segment is patent with no significant stenosis. No aneurysm. Left anterior cerebral artery: Unremarkable. No occlusion or significant stenosis. No aneurysm. Left middle cerebral artery: Unremarkable. No occlusion or significant stenosis. No aneurysm. Left posterior cerebral artery: Unremarkable. No occlusion or significant stenosis. No aneurysm. Left vertebral artery: Unremarkable as visualized. Basilar artery: Unremarkable. No occlusion or significant stenosis. No aneurysm. Brain: 1.2 x 1 cm enhancing extra-axial mass adjacent to the posterior mesial left occipital lobe. This is only faintly visualized on the symptoms and had a small amount of calcification. IMPRESSION: No acute findings in the arteries of the head/brain. 1.2 cm enhancing extra-axial mass adjacent to the posterior mesial aspect of the left occipital lobe. Findings likely represent a hemangioma. Nonemergent MRI may be obtained for confirmation. Communications: Call Doctor Stroke Electronically signed by: Pramod Eli MD 08/06/23 23:36 PM
--- NOTE | 2023-08-06 23:38 | CT Scan Report ---
Exam(s): CTA NECK With Contrast IV Amt: 120 cc opti 320 EXAM: CT Angiography Neck With Intravenous Contrast CLINICAL HISTORY: Reason for exam: neuro deficit, acute stroke suspected. TECHNIQUE: Routine carotid CT angiography protocol was performed with intravenous contrast. NASCET criteria using the distal ICAs for comparison were used for evaluation of stenoses. CTDI is 28.5 mGy and DLP is 1383.96 mGy-cm. Automated exposure control was utilized for the study. A dose lowering technique was utilized adhering to the principles of ALARA. MIP reconstructed images were created and reviewed. CONTRAST: Patient received 120 cc opti 320 of IV contrast COMPARISON: None. FINDINGS: VASCULATURE: Right common carotid artery: Unremarkable. No occlusion or significant stenosis. No dissection. Right internal carotid artery: Unremarkable. Extracranial segment is patent with no occlusion or significant stenosis. No dissection. Right external carotid artery: Unremarkable. No occlusion. Right vertebral artery: Unremarkable. No occlusion or significant stenosis. No dissection. Left common carotid artery: Unremarkable. No occlusion or significant stenosis. No dissection. Left internal carotid artery: Unremarkable. Extracranial segment is patent with no occlusion or significant stenosis. No dissection. Left external carotid artery: Unremarkable. No occlusion. Left vertebral artery: Unremarkable. No occlusion or significant stenosis. No dissection. NECK: Bones/joints: Unremarkable. No acute fracture. Soft tissues: Unremarkable. Lung apices: Clear. CAROTID STENOSIS REFERENCE USING NASCET CRITERIA: % ICA stenosis = (1 - narrowest ICA diameter/diameter of distal cervical ICA) x 100. Mild - <50% stenosis. Moderate - 50-69% stenosis. Severe - 70-94% stenosis. Near occlusion - 95-99% stenosis. Occluded - 100% stenosis. IMPRESSION: Negative CTA neck. Communications: Call Doctor Stroke Electronically signed by: Pramod Eli MD 08/06/23 23:37 PM
--- NOTE | 2023-08-06 23:44 | CT Scan Report ---
Exam(s): CT HEAD Without Contrast EXAM: CT Head Without Intravenous Contrast CLINICAL HISTORY: Reason for exam: neuro deficit, acute stroke suspected. TECHNIQUE: Axial computed tomography images of the head/brain without intravenous contrast. CTDI is 36.67 mGy and DLP is 1383.96 mGy-cm. Automated exposure control was utilized for the study. A dose lowering technique was utilized adhering to the principles of ALARA. COMPARISON: 08/04/2023 FINDINGS: Brain: Mild ischemic microangiopathy. No hemorrhage. Ventricles: Unremarkable. No ventriculomegaly. Bones/joints: Unremarkable. No acute fracture. Soft tissues: Unremarkable. Vasculature: Numerous calcified cortical vessels present. Sinuses: Unremarkable as visualized. No acute sinusitis. Mastoid air cells: Unremarkable as visualized. No mastoid effusion. IMPRESSION: No acute findings in the head/brain. Communications: Call Doctor Stroke Electronically signed by: Pramod Eli MD 08/06/23 23:43 PM
[2023-08-07] MEDS: MAGNESIUM SULFATE / D5W 1 GM/100 ML BAG IV STA (00:03)
[2023-08-07] MEDS: METOCLOPRAMIDE HCL INJ 5 MG/ML 2 ML VIAL IV ONE (00:03)
--- NOTE | 2023-08-07 00:03 | CT Scan Report ---
Exam(s): CTA CHEST With Contrast IV Amt: 120 cc opti 320 EXAM: CT Angiography Chest With Intravenous Contrast CLINICAL HISTORY: Reason for exam: cp. TECHNIQUE: Axial computed tomographic angiography images of the chest with intravenous contrast. CTDI is 14.8 mGy and DLP is 1383.96 mGy-cm. Automated exposure control was utilized for the study. A dose lowering technique was utilized adhering to the principles of ALARA. MIP reconstructed images were created and reviewed. CONTRAST: Patient received 120 cc opti 320 of IV contrast COMPARISON: No relevant prior studies available. FINDINGS: Pulmonary arteries: Enlarged main pulmonary arteries suggesting pulmonary arterial hypertension. No pulmonary embolism. Aorta: No acute findings. No thoracic aortic aneurysm. Lungs: Linear atelectasis left upper lobe. No mass. Pleural space: Unremarkable. No significant effusion. No pneumothorax. Heart: Cardiomegaly. No significant pericardial effusion. No evidence of RV dysfunction. Bones/joints: T11 vertebral body compression fracture resulting in 20% vertebral body height loss this is likely chronic in nature. No dislocation. Soft tissues: Unremarkable. Lymph nodes: Unremarkable. No enlarged lymph nodes. Gallbladder and bile ducts: Postoperative changes prior cholecystectomy. Tubes, lines and devices: Left chest wall intracardiac device. IMPRESSION: No acute findings in the visualized arteries of the chest. Findings consistent with pulmonary arterial hypertension Chronic T11 vertebral body compression fracture Electronically signed by: Pramod Eli MD 08/07/23 00:02 AM
--- NOTE | 2023-08-07 01:32 | History & Physical Report ---
Date of Service August 07, 2023 Assessment & Plan (1) Headache: Plan: 83-year-old female with past med history significant for hyperlipidemia, obstructive sleep apnea, paroxysmal atrial fibrillation s/p ablation, tachybradycardia syndrome s/p pacemaker, hypertension, nonrheumatic aortic valve insufficiency and mitral valve regurgitation, GERD, essential tremor, history of GI bleed, presents with headaches and chest pain. Patient has had headaches for the last week. She was in the ER on August [address] head was okay. Her blood pressure was high. Recently her Toprol was decreased to 25 mg twice daily and amlodipine was stopped because of low blood pressures .When patient was in the ER on August 03 her Toprol was increased back to 50 mg twice daily and which she is taking now. Has her headache is not getting better and today also she developed some left chest pain in the axillary region which prompted her to come back to the ER. Currently chest pain got resolved. Still has headaches. Headaches in the front of the head and back of the head. And also in temporal region. Associated with some nausea. No blurred visions or double vision. No earache or runny nose or sore throat. No cough. Appetite is not great. No difficulty swallowing. No shortness of breath. No abdominal pain. Normal bowel and bladder movements. Ambulating okay. Lives with her . Headaches Going on for some time In the ER CTA head and neck and CT head are unremarkable Could not do MRI on the weekends because of the pacemaker Will follow ESR Neuroconsult for further recommendation Pain control Chest pain Resolved now Initial workup okay We will follow serial enzymes and echo Consult cardiology in a.m. for further recommendations Hypertension Currently on Toprol-XL 50 mg twice daily and lisinopril 2.5 mg daily And spironolactone 3 times a week gave a dose of lisinopril 10mg as BP elevated on the floor. Will monitor Cardiology consulted History of A-fib/atrial flutter Tachybradycardia syndrome History of ablation S/p pacemaker Currently on metoprolol succinate 50 mg twice daily and Eliquis Will monitor. Obstructive sleep apnea CPAP nightly Hyperlipidemia On statin Heart failure with preserved EF On lisinopril and spironolactone GERD On Prevacid DVT prophylaxis On Eliquis Disposition Med/telemetry Full code History of Present Illness Chief Complaint: Headaches and chest pain Primary Care Provider: Gregory Goodson MD 83-year-old female with past med history significant for hyperlipidemia, obstructive sleep apnea, paroxysmal atrial fibrillation s/p ablation, tachybradycardia syndrome s/p pacemaker, hypertension, nonrheumatic aortic valve insufficiency and mitral valve regurgitation, GERD, essential tremor, history of GI bleed, presents with headaches and chest pain. Patient has had headaches for the last week. She was in the ER on August [address] head was okay. Her blood pressure was high. Recently her Toprol was decreased to 25 mg twice daily and amlodipine was stopped because of low blood pressures .When patient was in the ER on August 03 her Toprol was increased back to 50 mg twice daily and which she is taking now. Has her headache is not getting better and today also she developed some left chest pain in the axillary region which prompted her to come back to the ER. Currently chest pain got resolved. Still has headaches. Headaches in the front of the head and back of the head. And also in temporal region. Associated with some nausea. No blurred visions or double vision. No earache or runny nose or sore throat. No cough. Appetite is not great. No difficulty swallowing. No shortness of breath. No abdominal pain. Normal bowel and jamar dder movements. Ambulating okay. Lives with her . Past medical history. As mentioned above. Past surgical history. Colonoscopy and EGD. Pulmonary vein isolation. Left knee arthroscopy. Laparoscopic cholecystectomy. S/p pacemaker. Bilateral cataracts. Right hip fracture repair. Social history. . No smoking. No alcohol no drug use. Family history. Mother had diabetes. Hypertension. Father had emphysema. Sister has hypertension Allergies Allergy/AdvReac Type Severity Reaction Status Date / Time Penicillins Allergy Unknown RASH Verified 08/07/23 00:12 Home Medications Medication Instructions Recorded Confirmed Type pravastatin 40 mg tablet 40 mg PO HS 05/29/18 08/07/23 History potassium chloride 10 mEq 10 meq PO QAM 06/05/18 08/07/23 History tablet,extended release(part/cryst) (Klor-Con M) lansoprazole 30 mg capsule,delayed 30 mg PO DAILYBB 04/10/21 08/07/23 History release (Prevacid) spironolactone 25 mg tablet 12.5 mg PO MOWEFR 06/11/22 05/12/24 History calcium carbonate (Calcium 600) 600 mg PO DAILY 09/06/21 08/07/23 History cholecalciferol (vitamin D3) 50 50 mcg PO DAILY 09/06/21 08/07/23 History mcg (2,000 unit) tablet (Vitamin D3) lisinopril 2.5 mg tablet 2.5 mg PO DAILY #30 tabs 03/11/23 08/07/23 Rx apixaban 5 mg tablet (Eliquis) 5 mg PO BID 30 days #60 tabs 05/19/23 08/07/23 Rx metoprolol succinate 50 mg 50 mg PO BID 30 days #60 tabs 05/19/23 08/07/23 Rx tablet,extended release 24 hr Past Med/Surg History Medical History Tachy-syed syndrome History of pacemaker Pacemaker HLD (hyperlipidemia) FEDERICO (acute kidney injury) Weakness Shortness of breath Hiatal hernia Upper GI bleed Compression fracture of T11 vertebra HTN (hypertension) Atrial fibrillation Obstructive sleep apnea CKD (chronic kidney disease) stage 3, GFR 30-59 ml/min GERD (gastroesophageal reflux disease) Surgical History S/P cholecystectomy Family History Other Diabetes Hypertension Social History Smoking Status: Never smoker Second Hand Exposure: No; Do You Dip or Chew Tobacco: No; Hx Alcohol Use: No Hx Substance Use: No Preferred Language: [place] Citizen Communication Ability: Effective Visual Impairment: No Limitations Hearing Ability: Normal Electronic Heat Seal Operator Required: No Beliefs That Will Affect Care: None Current Living Situation: Spouse Current Living Situation Comment: home with Feels Safe at Home: Yes Safety Concerns: Feels Safe At This Time Assistive Devices: Denture - Upper, Denture - Lower and Glasses Assistive Devices Comment: dentures with Review of Systems Review of Systems: All systems reviewed & are unremarkable except as noted in HPI & below Physical Exam Physical Exam: General- Not in distress Head- atraumatic Eyes- PERRL. ENT- oropharynx clear Neck- supple, no JVD. Lungs- clear to auscultation no wheezing or crackles. Heart- regular rhythm; no murmur, no gallop. Abdomen- normal bowel sounds, soft, nontender, no distension. Extremities- no pretibial edema, no erythema seen Neuro- alert, oriented PERRL, no facial palsy; no dysarthria; motor 5/5 bilaterally; no pronator drift Skin- warm & dry Results & Data Results & Data Vital Signs (Past 12 Hours) Vital Signs Temp Pulse Pulse Resp BP BP Pulse Ox 08/07/23 00:00 60 16 145/80 H 96 08/06/23 23:30 60 16 142/73 H 96 08/06/23 22:51 63 08/06/23 22:44 62 16 132/75 96 08/06/23 22:13 37.1 C 67 20 154/101 H 96 O2 Del Method 08/07/23 00:00 Room Air 08/06/23 23:30 Room Air 08/06/23 22:51 08/06/23 22:44 Room Air 08/06/23 22:13 Room Air Diagnostic Findings Laboratory Results WBC 5.70 K/ul (4.8-10.8) 08/06/23 22:23 RBC 4.02 M/uL (4.20-5.40) L 08/06/23 22:23 Hgb 11.9 g/dl (12.0-16.0) L 08/06/23 22:23 Hct 35.2 % (37.0-47.0) L 08/06/23 22:23 MCV 87.6 fL (80.0-100.0) 08/06/23 22: MCH 29.6 pg (25.0-34.0) 08/06/23 22: MCHC 33.8 g/dL (32.0-36.0) 08/06/23 22:23 RDW Std Deviation 41.2 fL (36.4-46.3) 08/06/23 22: RDW Coeff of Kenrick 12.9 % (11.5-14.5) 08/06/23 22: Plt Count 205 K/uL (130-400) 08/06/23 22:23 MPV 10.7 fL (9.4-12.4) 08/06/23 22: Immature Gran % (Auto) 0.4 % 08/06/23 22:23 Neut % (Auto) 67.5 % 08/06/23 22:23 Lymph % (Auto) 23.0 % 08/06/23 22:23 Faulkner % (Auto) 7.0 % 08/06/23 22:23 Eos % (Auto) 1.6 % 08/06/23 22:23 Baso % (Auto) 0.5 % 08/06/23 22:23 Neut # (Auto) 3.85 K/uL (1.40-6.50) 08/06/23 22:23 Lymph # (Auto) 1.31 K/uL (1.20-3.40) 08/06/23 22:23 Faulkner # (Auto) 0.40 K/uL (0.11-0.59) 08/06/23 22:23 Eos # (Auto) 0.09 K/uL (0.00-0.50) 08/06/23 22:23 Baso # (Auto) 0.03 K/uL (0.00-0.20) 08/06/23 22:23 Immature Gran # (Auto) 0.02 K/uL (0.01-0.20) 08/06/23 22:23 Sodium 136 mmol/L (136-145) 08/06/23 22:23 Potassium 3.7 mmol/L (3.5-5.1) 08/06/23 22:23 Chloride 103 mmol/L (98-107) 08/06/23 22:23 Carbon Dioxide 25 mmol/L (21-32) 08/06/23 22:23 Anion Gap 8 (3-11) 08/06/23 22:23 BUN 16 mg/dl (6-23) 08/06/23 22:23 Creatinine 0.85 mg/dl (0.6-1.2) 08/06/23 22:23 Est Cr Clr Drug Dosing 51.1 ml/min 08/06/23 22:23 Est GFR ( Amer) 74.5 ml/min 08/06/23 22:23 Est GFR (Non-Af Amer) 64.3 ml/min 08/06/23 22:23 BUN/Creatinine Ratio 18.8 (10-20) 08/06/23 22:23 Glucose 101 mg/dl (70-99(Fasting)) H 08/06/23 22:23 Calcium 8.8 mg/dl (8.6-10.3) 08/06/23 22:23 Magnesium 1.9 mg/dl (1.7-2.4) 08/06/23 22:23 Total Bilirubin 1.6 mg/dl (0.2-1.0) H 08/06/23 22:23 AST 18 U/L (13-39) 08/06/23 22:23 ALT 10 U/L (7-52) 08/06/23 22:23 Alkaline Phosphatase 33 U/L (34-104) L 08/06/23 22:23 Troponin I High Sens 12.0 pg/ml (0-14) 08/06/23 22:23 Total Protein 6.5 gm/dl (6.0-8.3) 08/06/23 22:23 Albumin 3.8 gm/dl (3.4-5.0) 08/06/23 22:23 Globulin 2.7 gm/dl (2.5-4.0) 08/06/23 22:23 Albumin/Globulin Ratio 1.4 (0.9-2) 08/06/23 22:23 TSH 2.374 uIu/ml (0.300-4.500) 08/06/23 22:23 Impressions Chest CTA 08/06/23 22:12 Exam(s): CTA CHEST With Contrast IV Amt: 120 cc opti 320 EXAM: CT Angiography Chest With Intravenous Contrast CLINICAL HISTORY: Reason for exam: cp. TECHNIQUE: Axial computed tomographic angiography images of the chest with intravenous contrast. CTDI is 14.8 mGy and DLP is 1383.96 mGy-cm. Automated exposure control was utilized for the study. A dose lowering technique was utilized adhering to the principles of ALARA. MIP reconstructed images were created and reviewed. CONTRAST: Patient received 120 cc opti 320 of IV contrast COMPARISON: No relevant prior studies available. FINDINGS: Pulmonary arteries: Enlarged main pulmonary arteries suggesting pulmonary arterial hypertension. No pulmonary embolism. Aorta: No acute findings. No thoracic aortic aneurysm. Lungs: Linear atelectasis left upper lobe. No mass. Pleural space: Unremarkable. No significant effusion. No pneumothorax. Heart: Cardiomegaly. No significant pericardial effusion. No evidence of RV dysfunction. Bones/joints: T11 vertebral body compression fracture resulting in 20% vertebral body height loss this is likely chronic in nature. No dislocation. Soft tissues: Unremarkable. Lymph nodes: Unremarkable. No enlarged lymph nodes. Gallbladder and bile ducts: Postoperative changes prior cholecystectomy. Tubes, lines and devices: Left chest wall intracardiac device. IMPRESSION: No acute findings in the visualized arteries of the chest. Findings consistent with pulmonary arterial hypertension Chronic T11 vertebral body compression fracture Electronically signed by: Pramod Eli MD 08/07/23 00:[address] 08/06/23 22:13 CR Exam(s): CT HEAD Without Contrast EXAM: CT Head Without Intravenous Contrast CLINICAL HISTORY: Reason for exam: neuro deficit, acute stroke suspected. TECHNIQUE: Axial computed tomography images of the head/brain without intravenous contrast. CTDI is 36.67 mGy and DLP is 1383.96 mGy-cm. Automated exposure control was utilized for the study. A dose lowering technique was utilized adhering to the principles of ALARA. COMPARISON: 08/04/2023 FINDINGS: Brain: Mild ischemic microangiopathy. No hemorrhage. Ventricles: Unremarkable. No ventriculomegaly. Bones/joints: Unremarkable. No acute fracture. Soft tissues: Unremarkable. Vasculature: Numerous calcified cortical vessels present. Sinuses: Unremarkable as visualized. No acute sinusitis. Mastoid air cells: Unremarkable as visualized. No mastoid effusion. IMPRESSION: No acute findings in the head/brain. Communications: Call Doctor Stroke Electronically signed by: Pramod Eli MD 08/06/23 23:43 PM Head CTA 08/06/23 22:13 CR Exam(s): CTA HEAD With Contrast IV Amt: 120 cc opti 320 EXAM: CT Angiography Head With Intravenous Contrast CLINICAL HISTORY: Reason for exam: neuro deficit, acute stroke suspected. TECHNIQUE: Axial computed tomographic angiography images of the head with intravenous contrast. CTDI is 36.67 mGy and DLP is 1383.96 mGy-cm. Automated exposure control was utilized for the study. A dose lowering technique was utilized adhering to the principles of ALARA. MIP reconstructed images were created and reviewed. CONTRAST: Patient received 120 cc opti 320 of IV contrast COMPARISON: No relevant prior studies available. FINDINGS: Right internal carotid artery: No acute findings. Intracranial segment is patent with no significant stenosis. No aneurysm. Right anterior cerebral artery: Unremarkable. No occlusion or significant stenosis. No aneurysm. Right middle cerebral artery: Unremarkable. No occlusion or significant stenosis. No aneurysm. Right posterior cerebral artery: Unremarkable. No occlusion or significant stenosis. No aneurysm. Right vertebral artery: Unremarkable as visualized. Left internal carotid artery: No acute findings. Intracranial segment is patent with no significant stenosis. No aneurysm. Left anterior cerebral artery: Unremarkable. No occlusion or significant stenosis. No aneurysm. Left middle cerebral artery: Unremarkable. No occlusion or significant stenosis. No aneurysm. Left posterior cerebral artery: Unremarkable. No occlusion or significant stenosis. No aneurysm. Left vertebral artery: Unremarkable as visualized. Basilar artery: Unremarkable. No occlusion or significant stenosis. No aneurysm. Brain: 1.2 x 1 cm enhancing extra-axial mass adjacent to the posterior mesial left occipital lobe. This is only faintly visualized on the symptoms and had a small amount of calcification. IMPRESSION: No acute findings in the arteries of the head/brain. 1.2 cm enhancing extra-axial mass adjacent to the posterior mesial aspect of the left occipital lobe. Findings likely represent a hemangioma. Nonemergent MRI may be obtained for confirmation. Communications: Call Doctor Stroke Electronically signed by: Pramod Eli MD 08/06/23 23:36 PM Neck CTA 08/06/23 22:13 CR Exam(s): CTA NECK With Contrast IV Amt: 120 cc opti 320 EXAM: CT Angiography Neck With Intravenous Contrast CLINICAL HISTORY: Reason for exam: neuro deficit, acute stroke suspected. TECHNIQUE: Routine carotid CT angiography protocol was performed with intravenous contrast. NASCET criteria using the distal ICAs for comparison were used for evaluation of stenoses. CTDI is 28.5 mGy and DLP is 1383.96 mGy-cm. Automated exposure control was utilized for the study. A dose lowering technique was utilized adhering to the principles of ALARA. MIP reconstructed images were created and reviewed. CONTRAST: Patient received 120 cc opti 320 of IV contrast COMPARISON: None. FINDINGS: VASCULATURE: Right common carotid artery: Unremarkable. No occlusion or significant stenosis. No dissection. Right internal carotid artery: Unremarkable. Extracranial segment is patent with no occlusion or significant stenosis. No dissection. Right external carotid artery: Unremarkable. No occlusion. Right vertebral artery: Unremarkable. No occlusion or significant stenosis. No dissection. Left common carotid artery: Unremarkable. No occlusion or significant stenosis. No dissection. Left internal carotid artery: Unremarkable. Extracranial segment is patent with no occlusion or significant stenosis. No dissection. Left external carotid artery: Unremarkable. No occlusion. Left vertebral artery: Unremarkable. No occlusion or significant stenosis. No dissection. NECK: Bones/joints: Unremarkable. No acute fracture. Soft tissues: Unremarkable. Lung apices: Clear. CAROTID STENOSIS REFERENCE USING NASCET CRITERIA: % ICA stenosis = (1 - narrowest ICA diameter/diameter of distal cervical ICA) x 100. Mild - <50% stenosis. Moderate - 50-69% stenosis. Severe - 70-94% stenosis. Near occlusion - 95-99% stenosis. Occluded - 100% stenosis. IMPRESSION: Negative CTA neck. Communications: Call Doctor Stroke Electronically signed by: Pramod Eli MD 08/06/23 23:37 PM ECG Additional Comments: ECG. Atrial sensed ventricular paced rhythm rate of 64. Code Status & VTE Plan VTE Prophylaxis Plan VTE Prophylaxis will be ordered: Yes (1) Headache Headache chronicity pattern: acute headache Headache type: unspecified Intractability: not intractable Qualified Code(s): R51.9 - Headache, unspecified
[2023-08-07] MEDS ORDERED: POLYETHYLENE (MIRALAX) 17 GM PACK PO PRN (02:21)
[2023-08-07] MEDS ORDERED: NITROGLYCERIN SL 0.4 MG/TAB TAB SL PRN (02:21)
[2023-08-07] MEDS ORDERED: ONDANSETRON INJ 2 MG/ML 2 ML VIAL IV PRN (02:21)
[2023-08-07] MEDS ORDERED: oxyCODONE HCL IR 5 MG TAB (IMMEDIATE RELEASE) PO PRN (02:21)
[2023-08-07] MEDS: SODIUM CHLORIDE 0.9% 1,000 ML IV SCH (02:48)
[2023-08-07] MEDS: ACETAMINOPHEN 325 MG TAB PO PRN (02:48)
[2023-08-07 03:18] LABS: Appearance Urine Clear (Clear); Bacteria Urine Automated 1+ (None Seen); Bilirubin Urine Negative (Negative); Blood Urine Trace (Negative); Cast Urine Automated 0-2 /lpf (0-2); Color Urine Yellow; Glucose Urine UA Negative (Negative); Ketones Urine Negative (Negative); Leukocyte Esterase Urine 1+ (Negative); Nitrite Urine Negative (Negative); Protein Urine Negative (Negative); RBC Urine Automated 0-2 /hpf (0-2); Specific Gravity Urine > 1.045 (1.000-1.030); Urobilinogen Urine Negative (Negative)
[2023-08-07] MEDS: PANTOprazole 40 MG TAB PO SCH (03:27)
[2023-08-07] MEDS: lisinopril 10 MG TAB PO STA (03:27)
[2023-08-07] MEDS: cefTRIAXone SODIUM 2,000 MG/50 ML BAG IV SCH (05:42)
[2023-08-07 05:50] LABS: Basophils # (auto) 0.02 K/uL (0.00-0.20); Basophils % (auto) 0.4 %; Hematocrit (blood only) 34.9 % (37.0-47.0); Hemoglobin 11.8 g/dl (12.0-16.0); Immature Granulocytes # (auto) 0.02 K/uL (0.01-0.20); Immature Granulocytes % (auto) 0.4 %; Lymphocytes # (auto) 1.04 K/uL (1.20-3.40); Lymphocytes % (auto) 20.8 %; Mean Corpuscular Hemoglobin 29.8 pg (25.0-34.0); Mean Corpuscular Hgb Conc 33.8 g/dL (32.0-36.0); Mean Corpuscular Volume 88.1 fL (80.0-100.0); Mean Platelet Volume 10.9 fL (9.4-12.4); Monocytes # (auto) 0.43 K/uL (0.11-0.59); Monocytes % (auto) 8.6 %; Neutrophils # (auto) 3.39 K/uL (1.40-6.50); Neutrophils % (auto) 67.8 %; Platelet Count 171 K/uL (130-400); RDW Coefficient of Variation 12.9 % (11.5-14.5); RDW Standard Deviation 41.8 fL (36.4-46.3); Red Blood Count 3.96 M/uL (4.20-5.40)
[2023-08-07 06:04] LABS: BUN Creatinine Ratio 15.1 (10-20); Calcium 8.5 mg/dl (8.6-10.3); Creatinine Clr Calc Pharmacy 42.7 ml/min; Est GFR (African American) 66.8 ml/min; Est GFR (Non-African American) 57.6 ml/min; Magnesium 2.3 mg/dl (1.7-2.4); Potassium 3.6 mmol/L (3.5-5.1)
[2023-08-07 06:11] LABS: Troponin I High Sensitivity 11.1 pg/ml (0-14)
--- NOTE | 2023-08-07 07:16 | Electrocardiogram Report ---
Test Reason : Blood Pressure : / mmHG Vent. Rate : 064 BPM Atrial Rate : 064 BPM P-R Int : 196 ms QRS Dur : 130 ms QT Int : 476 ms P-R-T Axes : 035 045 005 degrees QTc Int : 491 ms Atrial-sensed ventricular-paced rhythm Abnormal ECG When compared with ECG of 04-AUG-2023 04:05, Vent. rate has decreased BY 2 BPM Confirmed by Demetris Barlow ([id number]) on 08/07/2023 7:16:41 AM Referred By: NO PCP Confirmed By:Mahin Barlow
--- NOTE | 2023-08-07 07:23 | Electrocardiogram Report ---
Test Reason : Blood Pressure : / mmHG Vent. Rate : 060 BPM Atrial Rate : 060 BPM P-R Int : 186 ms QRS Dur : 148 ms QT Int : 514 ms P-R-T Axes : 073 074 041 degrees QTc Int : 514 ms AV dual-paced rhythm Abnormal ECG When compared with ECG of 06-AUG-2023 22:30, (unconfirmed) Vent. rate has decreased BY 4 BPM Confirmed by Demetris Barlow ([id number]) on 08/07/2023 7:23:16 AM Referred By: NO PCP Confirmed By:Mahin Barlow
--- NOTE | 2023-08-07 08:36 | Cardiology Consultation ---
Date of Consultation August 07, 2023 Assessment & Plan (1) Hypertensive urgency: (2) Chest pain: (3) Headache: (4) Hypertension: (5) Hx of atrioventricular node ablation: (6) Paroxysmal atrial fibrillation: Plan 83 year old woman with past medical history of paroxysmal afib s/p AVN ablation 05/18/23, tachy-syed syndrome s/p PPM, HTN, HLD, TISHA, cardiology consulted due to chest pain and elevated BP. Blood pressure elevated on arrival and has severe headache, consistent with hypertensive urgency. Chest pain now resolved. Troponin negative. EKG with no acute ischemic changes. ACS ruled out. Recommend to start amlodipine due to elevated BP. Continue metoprolol, lisinopril, spironolactone, apixaban. Check orthostatics. Recommend to stay well hydrated and change positions slowly. Follow up with outpatient cardiology clinic. Further recommendations per cardiology attending, Dr. Seo. I spent a total of 30 minutes on the date of service in preparation, delivery, and documentation of the care provided to this patient excluding any time spent in the performance of separately billed services. This visit was a split-shared visit with the substantial portion of the decision making performed by the supervising picc nurse/billing provider. Supervising Physician Co-Signing Physician Notes Patient was seen and examined, chart, medications, telemetry reviewed. Full assessment and plan as outlined by advanced provider as above. Care and management discussed in detail and recommendations personally endorsed We will treat hypertension, headaches. Currently without chest pain or signs of myocardial injury or ischemia. Rhythm ventricular paced status post AV junction ablation Echocardiogram unchanged Amlodipine to be added to regimen at 5 mg/day first dose this morning I spent a total of 30 minutes on the date of service in preparation, delivery, and documentation of the care provided to this patient excluding any time spent in the performance of separately billed servic History of Present Illness Reason for Consultation: Chest pain, elevated BP Requesting Physician: Srinivas Alexis MD Attending Physician: Delores Lyn MD History of Present Illness 83 year old woman with past medical history of paroxysmal afib s/p AVN ablation 05/18/23, tachy-syed syndrome s/p PPM, HTN, HLD, TISHA, who presents with headache and chest pain. States she has been having mild headaches for past few months that come and go, became more severe recently and presented to ED 5/9 with headache and HTN urgency with blood pressure 200s systolic, metoprolol was increased. She continued to have more severe headaches at home despite increase in metoprolol so represented to ED. BP on arrival 154/101, she complained of left sided chest pain at rest, received nitroglycerin by EMS and chest pain resolved. Troponin negative. EKG with no acute ischemic changes. CT head shows left occipital mass, likely representing a hemangioma, recommended MRI for further workup. On evaluation today, she states she is feeling better. Denies chest pain, palpitations, lightheadedness, dizziness. Has mild headache. Denies diplopia, loss of vision. Has been compliant with medications. She follows with outpatient cardiology clinic, noted lightheadedness with position changes at last visit, blood pressure on low end, so amlodipine discontinued. Notes her blood pressure at home has been 130-140s systolic recently, but does not check every day. Denies tobacco use, alcohol use. Allergies Allergy/AdvReac Type Severity Reaction Status Date / Time Penicillins Allergy Unknown RASH Verified 08/07/23 00:12 Home Medications Medication Instructions Recorded Confirmed Type pravastatin 40 mg tablet 40 mg PO HS 05/29/18 08/07/23 History potassium chloride 10 mEq 10 meq PO QAM 06/05/18 08/07/23 History tablet,extended release(part/cryst) (Klor-Con M) lansoprazole 30 mg capsule,delayed 30 mg PO DAILYBB 04/10/21 08/07/23 History release (Prevacid) spironolactone 25 mg tablet 12.5 mg PO MOWEFR 09/05/21 08/07/23 History calcium carbonate (Calcium 600) 600 mg PO DAILY 09/06/21 08/07/23 History cholecalciferol (vitamin D3) 50 50 mcg PO DAILY 09/06/21 08/07/23 History mcg (2,000 unit) tablet (Vitamin D3) lisinopril 2.5 mg tablet 2.5 mg PO DAILY #30 tabs 03/11/23 08/07/23 Rx apixaban 5 mg tablet (Eliquis) 5 mg PO BID 30 days #60 tabs 05/19/23 08/07/23 Rx metoprolol succinate 50 mg 50 mg PO BID 30 days #60 tabs 05/19/23 08/07/23 Rx tablet,extended release 24 hr Patient History Medical History Tachy-syed syndrome History of pacemaker Pacemaker HLD (hyperlipidemia) FEDERICO (acute kidney injury) Weakness Shortness of breath Hiatal hernia Upper GI bleed Compression fracture of T11 vertebra HTN (hypertension) Atrial fibrillation Obstructive sleep apnea CKD (chronic kidney disease) stage 3, GFR 30-59 ml/min GERD (gastroesophageal reflux disease) Surgical History S/P cholecystectomy Family History Other Diabetes Hypertension Social History Smoking Status: Never smoker Second Hand Exposure: No; Do You Dip or Chew Tobacco: No; Hx Alcohol Use: No Hx Substance Use: No Preferred Language: Sami Communication Ability: Effective Visual Impairment: No Limitations Hearing Ability: Normal Ed Manager Required: No Beliefs That Will Affect Care: None Current Living Situation: Spouse Current Living Situation Comment: home with Feels Safe at Home: Yes Safety Concerns: Feels Safe At This Time Assistive Devices: Denture - Upper, Denture - Lower and Glasses Assistive Devices Comment: dentures with Review of Systems Review of Systems: CONSTITUTIONAL: No change in weight, No weakness, No fatigue and No fevers, No sweats or chills. PULMONARY: No cough, sputum, or hemoptysis, No wheezing, No shortness of breath and No recent change in breathing. CARDIOVASCULAR: No chest pain, No dyspnea on exertion, No edema, No palpitations and No syncope. GASTROINTESTINAL: No abdominal pain, No change in bowel habits, No significant heartburn, No nausea, No vomiting, No diarrhea, No constipation, No blood in stools or black tarry stools. No dysphagia. HEMATOLOGIC: No abnormal bleeding and No bruising. NEUROLOGICAL: Normal balance, + headaches and No weakness. Physical Exam Physical Exam: General: No acute distress. A+Ox3. HEENT: Normocephalic. Atraumatic. PERRL. EOMI. Conjunctiva and sclera clear. NECK: No carotid bruits. No JVD. Carotid upstrokes are brisk. Heart: RRR. S1 and S2 noted. No murmur. No rubs or gallops. PMI non displaced. Lungs: Clear to auscultation. No wheezes. No rhonchi. No rales. Abdomen: Normal bowel sounds. Soft. Nontender. No masses or organomegaly. No abdominal bruits. Extremities: No edema. No clubbing or cyanosis. Pulses: radial=2/4, posterior tibial=2/4, dorsalis pedis = 2/4. NEURO: No focal deficits. PSYCH: Appropriate affect and insight. Results & Data Vital Signs (Past 12 Hours) Vital Signs Temp Pulse Pulse Resp BP BP Pulse Ox 08/07/23 05:44 60 169/78 H 08/07/23 02:50 191/101 H 08/07/23 02:30 36.5 C 66 16 196/84 H 95 08/07/23 02:29 84 08/07/23 00:00 60 16 145/80 H 96 08/06/23 23:30 60 16 142/73 H 96 08/06/23 22:51 63 08/06/23 22:44 62 16 132/75 96 08/06/23 22:13 37.1 C 67 20 154/101 H 96 O2 Del Method 08/07/23 05:44 08/07/23 02:50 08/07/23 02:30 Room Air 08/07/23 02:29 08/07/23 00:00 Room Air 08/06/23 23:30 Room Air 08/06/23 22:51 08/06/23 22:44 Room Air 08/06/23 22:13 Room Air Laboratory Results Cardiac Enzymes 08/06/23 08/07/23 Range/Units 22:23 05:12 AST 18 (13-39) U/L Troponin I High Sens 12.0 11.1 (0-14) pg/ml CBC 08/06/23 08/07/23 Range/Units 22:23 05:12 WBC 5.70 5.00 (4.8-10.8) K/ul RBC 4.02 L 3.96 L (4.20-5.40) M/uL Hgb 11.9 L 11.8 L (12.0-16.0) g/dl Hct 35.2 L 34.9 L (37.0-47.0) % Plt Count 205 171 (130-400) K/uL Neut # (Auto) 3.85 3.39 (1.40-6.50) K/uL Lymph # (Auto) 1.31 1.04 L (1.20-3.40) K/uL [place] # (Auto) 0.40 0.43 (0.11-0.59) K/uL Eos # (Auto) 0.09 0.10 (0.00-0.50) K/uL Baso # (Auto) 0.03 0.02 (0.00-0.20) K/uL Comprehensive Metabolic Panel 08/06/23 08/07/23 Range/Units 22:23 05:12 Sodium 136 137 (136-145) mmol/L Potassium 3.7 3.6 (3.5-5.1) mmol/L Chloride 103 104 (98-107) mmol/L Carbon Dioxide 25 25 (21-32) mmol/L BUN 16 14 (6-23) mg/dl Creatinine 0.85 0.93 (0.6-1.2) mg/dl Glucose 101 H 95 (70-99(Fasting)) mg/dl Calcium 8.8 8.5 L (8.6-10.3) mg/dl AST 18 (13-39) U/L ALT 10 (7-52) U/L Alkaline Phosphatase 33 L (34-104) U/L Total Protein 6.5 (6.0-8.3) gm/dl Albumin 3.8 (3.4-5.0) gm/dl Intake and Output 08/06/23 08/07/23 08/07/23 22:59 06:59 14:59 Intake Total 100 / 250 150 / 250 Balance 100 / 250 150 / 250 Intake: IV 100 / 250 150 / 250 Acetaminophen 1,000 mg In 100 100 / 100 ml @ 400 mls/hr IV NOW STA Rx#: [id number] Magnesium Sulfate / D5w 1 gm In 100 / 100 100 ml @ 100 mls/hr IV NOW STA Rx#:[id number] cefTRIAXone SODIUM 2,000 mg In 50 / 50 50 ml @ 100 mls/hr IV Q24H CURLY Rx#:[id number] Other: Other Intake Source npo # Unmeasured Voids 1 Weight 70.5 kg 67.9 kg Weight Measurement Method Built in [facility] Standing Scale Diagnostic Findings EKG with AV dual paced rhythm, 60 bpm (2) Chest pain Chest pain type: other chest pain Qualified Code(s): R07.89 - Other chest pain (3) Headache Headache chronicity pattern: acute headache Headache type: unspecified I ntractability: not intractable Qualified Code(s): R51.9 - Headache, unspecified (4) Hypertension Hypertension type: primary hypertension Qualified Code(s): I10 - Essential (primary) hypertension
[2023-08-07] MEDS: lisinopril 2.5 MG TAB PO SCH (08:56)
[2023-08-07] MEDS: METOPROLOL SUCC 50MG EXT REL TAB PO SCH (08:56)
[2023-08-07] MEDS: CALCIUM 600MG + VIT D 400 IU TAB PO SCH (08:56)
[2023-08-07] MEDS: APIXABAN 5 MG TABLET PO SCH (08:56)
[2023-08-07] MEDS: POTASSIUM CHLORIDE 10 MEQ TABCR PO SCH (08:57)
[2023-08-07] MEDS: CHOLECALCIFEROL 25 MCG (1000 UNITS) TAB PO SCH (08:57)
[2023-08-07] MEDS: amLODIPine BESYLATE 5 MG TAB PO SCH (11:43)
--- NOTE | 2023-08-07 12:27 | Neurology Consultation ---
Date of Consultation August 07, 2023 Assessment & Plan (1) Headache: Reported new persistent daily headache for 1-2 weeks Recommend 1 gram IV magnesium sulfate x 1 now, 500mg IV valproic acid Q8 x 3, 250mg IV solumedrol Q12 x 2 Recommend continued work up to include the following: MRI brain with and without contrast Continue frequent neurological assessments Obtain stat CT brain without contrast for any acute neurological decline Continue to monitor/control blood pressure & blood glucose Recommend continue to monitor inflammatory markers Monitor renal and hepatic function, keep euvolemic Metabolic workup should include hgbA1c, fasting lipids, homocysteine, TSH, D Dimer Continue current medications, including full anticoagulation Monitor for s/s of hemorrhage Monitor CBC- as there is notable anemia PT/OT/SLT to eval and treat Recommend positive airway pressure mask QHS Agree with antimicrobial tx and monitor for s/s of infection Keep low threshold for LP to eval for SVP MONETIZATION involvement if new changes in mentation, fevers or neurological deficits present Telehealth Consultation Telehealth Information Telehealth Information: I performed this visit using a real-time telehealth connection between my location and the patients location ([facility]). After connecting through interactive tele-video, patient was identified by name and date of and/or wristband check.Patient (or authorized healthcare hospital insurance representative) was informed that this was a telemedicine visit and it was being conducted confidentially over secure lines. My office door was closed and no one else was present in the room with me.Patient (or authorized healthcare hospital insurance representative) provided consent to proceed with the visit, expressed an understanding of privacy and security of the telemedicine visit, and gave permission to have a hospital hospital insurance representative in the room in order to assist with the visit and to conduct portions of the visit, as needed. I informed the patient (or authorized healthcare hospital insurance representative) that I reviewed their record and presented the opportunity for them to ask any questions regarding the visit today. The patient agreed to participate. History of Present Illness Reason for Consultation: Headache Requesting Physician: Dr. Lyn Attending Physician: Delores Lyn MD History of Present Illness 83yo female with significant past medical hx including PAF for which now s/p ablation remains on full anticoag twice daily apixaban, tachy/syed s/p pacer implantation, HTN, valvular insufficiency, hyperlipidemia, TISHA presented with headache and ches pain. The chest pain has reportedly resolved. She has been noted to be suffering from headache for at least a week. She presented yesterday with severely elevated BP and has been recent undergoing antihypertensive medication titration. She has undergone emergent stroke imaging including CT brain without contrast, personally reviewed, revealing no overt evidence of hemorrhage. CT angiographic studies of head and neck, also personally reviewed, reveal no overt evidence of large vessel occlusion or significant/flow limiting stenosis. There is notable area of enhancement concerning for possible hemangioma. There has been no report of fever or changes in mentation. ESR unremarkable. Headache reported as holocephalic. No reported symptoms of nummular headache, positive meningeal signs. No reported fever or other symptoms of infection. Allergies Allergy/AdvReac Type Severity Reaction Status Date / Time Penicillins Allergy Unknown RASH Verified 08/07/23 00:12 Home Medications Medication Instructions Recorded Confirmed Type pravastatin 40 mg tablet 40 mg PO HS 05/29/18 08/07/23 History potassium chloride 10 mEq 10 meq PO QAM 06/05/18 08/07/23 History tablet,extended release(part/cryst) (Klor-Con M) lansoprazole 30 mg capsule,delayed 30 mg PO DAILYBB 04/10/21 08/07/23 History release (Prevacid) spironolactone 25 mg tablet 12.5 mg PO MOWEFR 09/05/21 08/07/23 History calcium carbonate (Calcium 600) 600 mg PO DAILY 09/06/21 08/07/23 History cholecalciferol (vitamin D3) 50 50 mcg PO DAILY 09/06/21 08/07/23 History mcg (2,000 unit) tablet (Vitamin D3) lisinopril 2.5 mg tablet 2.5 mg PO DAILY #30 tabs 03/11/23 08/07/23 Rx apixaban 5 mg tablet (Eliquis) 5 mg PO BID 30 days #60 tabs 05/19/23 08/07/23 Rx metoprolol succinate 50 mg 50 mg PO BID 30 days #60 tabs 05/19/23 08/07/23 Rx tablet,extended release 24 hr Patient History Medical History Tachy-syed syndrome History of pacemaker Pacemaker HLD (hyperlipidemia) FEDERICO (acute kidney injury) Weakness Shortness of breath Hiatal hernia Upper GI bleed Compression fracture of T11 vertebra HTN (hypertension) Atrial fibrillation Obstructive sleep apnea CKD (chronic kidney disease) stage 3, GFR 30-59 ml/min GERD (gastroesophageal reflux disease) Surgical History S/P cholecystectomy Family History Other Diabetes Hypertension Social History Smoking Status: Never smoker Second Hand Exposure: No; Do You Dip or Chew Tobacco: No; Hx Alcohol Use: No Hx Substance Use: No Preferred Language: Irish Communication Ability: Effective Visual Impairment: No Limitations Hearing Ability: Normal Realtime Reporter Required: No Beliefs That Will Affect Care: None Current Living Situation: Spouse Current Living Situation Comment: home with Feels Safe at Home: Yes Safety Concerns: Feels Safe At This Time Assistive Devices: Denture - Upper, Denture - Lower and Glasses Assistive Devices Comment: dentures with Physical Exam I have performed televideo consultation with help of BUSHRA Estrada at bedside due to technical issues patient is unable to see or hear me on camera/video. She is alert & oriented; able to answer all questions appropriately. Neurological exam is non lateralizing/nonfocal in terms of motor strength and coordination. Neurological Examination: Mental Status: Awake and alert. Oriented to person, place, and time. Fluency and comprehension appear grossly intact. Affect remains appropriate. CN testing: I: Denies changes in ability to smell II:Reports no changes in visual acuity III/IV/: No evidence of gaze preference, hippus, nystagmus or roving eye movements V: Facial sensation is difficult to reliably assess VII: Facial movements appear without evidence of asymmetry VIII: Hearing appears grossly intact to loud voice bilaterally IX/X: Palate difficult to reliably assess XI: Shoulder shrug appears symmetric/ grossly intact bilaterally XII: Tongue protrudes midline without evidence of biting Motor exam: Strength appears grossly intact/symmetric in all extremities Sensory: Sensation is reportedly grossly intact throughout Coordination: Deferred Reflexes: Deferred Gait: Deferred Results & Data Vital Signs (Past 12 Hours) Vital Signs Temp Pulse Pulse Resp BP Pulse Ox O2 Del Method 08/07/23 11:44 36.6 C 61 16 171/87 H 96 Room Air 08/07/23 10:00 61 08/07/23 05:44 60 169/78 H 08/07/23 02:50 191/101 H 08/07/23 02:30 36.5 C 66 16 196/84 H 95 Room Air 08/07/23 02:29 84 Laboratory Results Abnormal lab results 08/06/23 08/07/23 08/07/23 Range/Units 22:23 02:50 05:12 RBC 4.02 L 3.96 L (4.20-5.40) M/uL Hgb 11.9 L 11.8 L (12.0-16.0) g/dl Hct 35.2 L 34.9 L (37.0-47.0) % Lymph # (Auto) 1.04 L (1.20-3.40) K/uL Glucose 101 H (70-99(Fasting)) mg/dl Calcium 8.5 L (8.6-10.3) mg/dl Total Bilirubin 1.6 H (0.2-1.0) mg/dl Alkaline Phosphatase 33 L (34-104) U/L Ur Specific [place] > 1.045 H (1.000-1.030) Urine Blood Trace H (Negative) Ur Leukocyte Esterase 1+ H (Negative) Urine WBC (Auto) 11-20 H (0-5) /hpf U Epithel Cells (Auto) 3-5 H (0-2) /hpf Urine Bacteria (Auto) 1+ H (None Seen) Diagnostic Findings Chest CTA 08/06/23 22:12 Exam(s): CTA CHEST With Contrast IV Amt: 120 cc opti 320 EXAM: CT Angiography Chest With Intravenous Contrast CLINICAL HISTORY: Reason for exam: cp. TECHNIQUE: Axial computed tomographic angiography images of the chest with intravenous contrast. CTDI is 14.8 mGy and DLP is 1383.96 mGy-cm. Automated exposure control was utilized for the study. A dose lowering technique was utilized adhering to the principles of ALARA. MIP reconstructed images were created and reviewed. CONTRAST: Patient received 120 cc opti 320 of IV contrast COMPARISON: No relevant prior studies available. FINDINGS: Pulmonary arteries: Enlarged main pulmonary arteries suggesting pulmonary arterial hypertension. No pulmonary embolism. Aorta: No acute findings. No thoracic aortic aneurysm. Lungs: Linear atelectasis left upper lobe. No mass. Pleural space: Unremarkable. No significant effusion. No pneumothorax. Heart: Cardiomegaly. No significant pericardial effusion. No evidence of RV dysfunction. Bones/joints: T11 vertebral body compression fracture resulting in 20% vertebral body height loss this is likely chronic in nature. No dislocation. Soft tissues: Unremarkable. Lymph nodes: Unremarkable. No enlarged lymph nodes. Gallbladder and bile ducts: Postoperative changes prior cholecystectomy. Tubes, lines and devices: Left chest wall intracardiac device. IMPRESSION: No acute findings in the visualized arteries of the chest. Findings consistent with pulmonary arterial hypertension Chronic T11 vertebral body compression fracture Electronically signed by: Pramod Eli MD 08/07/23 00:[address] 08/06/23 22:13 CR Exam(s): CT HEAD Without Contrast EXAM: CT Head Without Intravenous Contrast CLINICAL HISTORY: Reason for exam: neuro deficit, acute stroke suspected. TECHNIQUE: Axial computed tomography images of the head/brain without intravenous contrast. CTDI is 36.67 mGy and DLP is 1383.96 mGy-cm. Automated exposure control was utilized for the study. A dose lowering technique was utilized adhering to the principles of ALARA. COMPARISON: 08/04/2023 FINDINGS: Brain: Mild ischemic microangiopathy. No hemorrhage. Ventricles: Unremarkable. No ventriculomegaly. Bones/joints: Unremarkable. No acute fracture. Soft tissues: Unremarkable. Vasculature: Numerous calcified cortical vessels present. Sinuses: Unremarkable as visualized. No acute sinusitis. Mastoid air cells: Unremarkable as visualized. No mastoid effusion. IMPRESSION: No acute findings in the head/brain. Communications: Call Doctor Stroke Electronically signed by: Pramod Eli MD 08/06/23 23:43 PM Head CTA 08/06/23 22:13 CR Exam(s): CTA HEAD With Contrast IV Amt: 120 cc opti 320 EXAM: CT Angiography Head With Intravenous Contrast CLINICAL HISTORY: Reason for exam: neuro deficit, acute stroke suspected. TECHNIQUE: Axial computed tomographic angiography images of the head with intravenous contrast. CTDI is 36.67 mGy and DLP is 1383.96 mGy-cm. Automated exposure control was utilized for the study. A dose lowering technique was utilized adhering to the principles of ALARA. MIP reconstructed images were created and reviewed. CONTRAST: Patient received 120 cc opti 320 of IV contrast COMPARISON: No relevant prior studies available. FINDINGS: Right internal carotid artery: No acute findings. Intracranial segment is patent with no significant stenosis. No aneurysm. Right anterior cerebral artery: Unremarkable. No occlusion or significant stenosis. No aneurysm. Right middle cerebral artery: Unremarkable. No occlusion or significant stenosis. No aneurysm. Right posterior cerebral artery: Unremarkable. No occlusion or significant stenosis. No aneurysm. Right vertebral artery: Unremarkable as visualized. Left internal carotid artery: No acute findings. Intracranial segment is patent with no significant stenosis. No aneurysm. Left anterior cerebral artery: Unremarkable. No occlusion or significant stenosis. No aneurysm. Left middle cerebral artery: Unremarkable. No occlusion or significant stenosis. No aneurysm. Left posterior cerebral artery: Unremarkable. No occlusion or significant stenosis. No aneurysm. Left vertebral artery: Unremarkable as visualized. Basilar artery: Unremarkable. No occlusion or significant stenosis. No aneurysm. Brain: 1.2 x 1 cm enhancing extra-axial mass adjacent to the posterior mesial left occipital lobe. This is only faintly visualized on the symptoms and had a small amount of calcification. IMPRESSION: No acute findings in the arteries of the head/brain. 1.2 cm enhancing extra-axial mass adjacent to the posterior mesial aspect of the left occipital lobe. Findings likely represent a hemangioma. Nonemergent MRI may be obtained for confirmation. Communications: Call Doctor Stroke Electronically signed by: Pramod Eli MD 08/06/23 23:36 PM Neck CTA 08/06/23 22:13 CR Exam(s): CTA NECK With Contrast IV Amt: 120 cc opti 320 EXAM: CT Angiography Neck With Intravenous Contrast CLINICAL HISTORY: Reason for exam: neuro deficit, acute stroke suspected. TECHNIQUE: Routine carotid CT angiography protocol was performed with intravenous contrast. NASCET criteria using the distal ICAs for comparison were used for evaluation of stenoses. CTDI is 28.5 mGy and DLP is 1383.96 mGy-cm. Automated exposure control was utilized for the study. A dose lowering technique was utilized adhering to the principles of ALARA. MIP reconstructed images were created and reviewed. CONTRAST: Patient received 120 cc opti 320 of IV contrast COMPARISON: None. FINDINGS: VASCULATURE: Right common carotid artery: Unremarkable. No occlusion or significant stenosis. No dissection. Right internal carotid artery: Unremarkable. Extracranial segment is patent with no occlusion or significant stenosis. No dissection. Right external carotid artery: Unremarkable. No occlusion. Right vertebral artery: Unremarkable. No occlusion or significant stenosis. No dissection. Left common carotid artery: Unremarkable. No occlusion or significant stenosis. No dissection. Left internal carotid artery: Unremarkable. Extracranial segment is patent with no occlusion or significant stenosis. No dissection. Left external carotid artery: Unremarkable. No occlusion. Left vertebral artery: Unremarkable. No occlusion or significant stenosis. No dissection. NECK: Bones/joints: Unremarkable. No acute fracture. Soft tissues: Unremarkable. Lung apices: Clear. CAROTID STENOSIS REFERENCE USING NASCET CRITERIA: % ICA stenosis = (1 - narrowest ICA diameter/diameter of distal cervical ICA) x 100. Mild - <50% stenosis. Moderate - 50-69% stenosis. Severe - 70-94% stenosis. Near occlusion - 95-99% stenosis. Occluded - 100% stenosis. IMPRESSION: Negative CTA neck. Communications: Call Doctor Stroke Electronically signed by: Pramod Eli MD 08/06/23 23:37 PM Medications Administered Home Medications Medication Instructions Recorded Confirmed Last Taken pravastatin 40 mg tablet 40 mg PO HS 05/29/18 08/07/23 03/08/23 potassium chloride 10 mEq 10 meq PO QAM 06/05/18 08/07/23 03/09/23 tablet,extended release(part/cryst) (Klor-Con M) lansoprazole 30 mg capsule,delayed 30 mg PO DAILYBB 04/10/21 08/07/23 03/09/23 release (Prevacid) spironolactone 25 mg tablet 12.5 mg PO MOWEFR 09/05/21 08/07/23 03/09/23 calcium carbonate (Calcium 600) 600 mg PO DAILY 09/06/21 08/07/23 03/09/23 cholecalciferol (vitamin D3) 50 50 mcg PO DAILY 09/06/21 08/07/23 03/09/23 mcg (2,000 unit) tablet (Vitamin D3) lisinopril 2.5 mg tablet 2.5 mg PO DAILY #30 tabs 03/11/23 08/07/23 Unknown apixaban 5 mg tablet (Eliquis) 5 mg PO BID 30 days #60 tabs 05/19/23 08/07/23 08/06/23 21:00 metoprolol succinate 50 mg 50 mg PO BID 30 days #60 tabs 05/19/23 08/07/23 Unknown tablet,extended release 24 hr Active Medications Generic Name Dose Route Start Last Admin Trade Name Freq PRN Reason Stop Dose Admin Acetaminophen 650 mg 08/07/23 02:21 08/07/23 09:04 Acetaminophen 325 Mg Tab PO 09/06/23 02:20 650 mg Q4H PRN Administration Pain or Fever Amlodipine Besylate 5 mg 08/07/23 09:15 08/07/23 11:43 Amlodipine Besylate 5 Mg Tab PO 09/06/23 09:14 5 mg QAM CURLY Administration Apixaban 5 mg 08/07/23 09:00 08/07/23 08:56 Apixaban 5 Mg Tablet PO 09/06/23 08:59 5 mg BID CURLY Administration Calcium/Vitamin D 1 tab 08/07/23 09:00 08/07/23 08:56 Calcium 600mg + Vit D 400 Iu Tab PO 09/06/23 08:59 1 tab DAILY CURLY Administration Sodium Chloride 1,000 mls @ 80 mls/hr 08/07/23 02:21 08/07/23 02:48 Nss IV 08/07/23 14:50 80 mls/hr .[id number] CURLY Administration Ceftriaxone Sodium 2,000 mg in 50 mls @ 100 mls/hr 08/07/23 06:00 08/07/23 06:13 Rocephin IV 08/17/23 05:59 Infused Q24H CURLY Infusion Lisinopril 2.5 mg 08/07/23 09:00 08/07/23 08:56 Lisinopril 2.5 Mg Tab PO 09/06/23 08:59 2.5 mg DAILY CURLY Administration Metoprolol Succinate 50 mg 08/07/23 09:00 08/07/23 08:56 Metoprolol Succ 50mg Ext Rel Tab PO 09/06/23 08:59 50 mg BID CURLY Administration Pantoprazole Sodium 40 mg 08/07/23 06:30 08/07/23 03:27 Pantoprazole 40 Mg Tab PO 09/06/23 06:29 40 mg DAILYBB CURLY Administration Potassium Chloride 10 meq 08/07/23 09:00 08/07/23 08:57 Potassium Chloride 10 Meq Tabcr PO 09/06/23 08:59 10 meq QAM CURLY Administration Vitamin D 50 mcg 08/07/23 09:00 08/07/23 08:57 Cholecalciferol 25 Mcg (1000 Units) Tab PO 09/06/23 08:59 50 mcg DAILY CURLY Administration (1) Headache Headache chronicity pattern: acute headache Headache type: unspecified Intractability: not intractable Qualified Code(s): R51.9 - Headache, unspecifie d
--- NOTE | 2023-08-07 12:40 | Hospitalist Progress Note ---
Date of Service August 07, 2023 Assessment & Plan (1) Headache: Plan: 83-year-old female with past med history significant for hyperlipidemia, obstructive sleep apnea, paroxysmal atrial fibrillation s/p ablation, tachybradycardia syndrome s/p pacemaker, hypertension, nonrheumatic aortic valve insufficiency and mitral valve regurgitation, GERD, essential tremor, history of GI bleed, presents with headaches and chest pain. Patient has had headaches for the last week. She was in the ER on August [address] head was okay. Her blood pressure was high. Recently her Toprol was decreased to 25 mg twice daily and amlodipine was stopped because of low blood pressures .When patient was in the ER on August 03 her Toprol was increased back to 50 mg twice daily and which she is taking now. Has her headache is not getting better and today also she developed some left chest pain in the axillary region which prompted her to come back to the ER. Currently chest pain got resolved. Still has headaches. Headaches in the front of the head and back of the head. And also in temporal region. Associated with some nausea. No blurred visions or double vision. No earache or runny nose or sore throat. No cough. Appetite is not great. No difficulty swallowing. No shortness of breath. No abdominal pain. Normal bowel and bladder movements. Ambulating okay. Lives with her . Hypertension Currently on Toprol-XL 50 mg twice daily and lisinopril 2.5 mg daily And spironolactone 3 times a week Received a dose of lisinopril 10mg as BP elevated on the floor. Blood pressure remains elevated at 171/87 as of this morning of 08/07/2023 Appreciate cardiology input and recommendation No evidence of ACS Amlodipine 5 mg has been added Headache-without any neurological symptoms Has been complaining of headaches for some time In the ER CTA head and neck and CT head are unremarkable Could not do MRI on the weekends because of the pacemaker Appreciate neurology input and recommendation Will try 1 g magnesium sulfate x 1, 500 mg valproic acid IV every 8 hourly for 3 doses and to 2 mg IV Solu-Medrol every 12 all for 2 doses and then see the improvement of headache and not MRI of the brain with and without contrast was requested but unfortunately cannot do that due to pacemaker Do a CAT scan for any change in neurological status Chest pain Resolved now Initial workup okay We will follow serial enzymes and echo Consult cardiology in a.m. for further recommendations Troponins and EKG remain unremarkable Appreciate cardiology input and recommendation History of A-fib/atrial flutter Tachybradycardia syndrome History of ablation S/p pacemaker Currently on metoprolol succinate 50 mg twice daily and Eliquis Rate is controlled and the patient has been on Eliquis Obstructive sleep apnea CPAP nightly Hyperlipidemia On statin Heart failure with preserved EF On lisinopril and spironolactone GERD On Prevacid DVT prophylaxis On Eliquis Disposition Med/telemetry Full code Admission and Anticipated Discharge Date Admission Date: August 07, 2023 Subjective 08/07/2023 The patient was seen and examined in medical telemetry unit She has been complaining of headache occipital and frontal for the last few weeks without any neurological symptoms Has had chest pain prior to admission Blood pressure has been running very high Has been feeling a little better since admission Review of Systems Review of Systems: All systems reviewed and are unremarkable except as noted below Physical Exam Physical Exam: Lying in bed without any acute distress Constitutional: average body habitus; not ill appearing Eyes: PERRL, conjunctivae normal, anicteric sclerae ENMT: external ear and nose normal, oropharynx normal Neck: trachea midline, no thyromegaly Respiratory: no respiratory distress Auscultation: lungs clear to auscultation bilaterally Cardiovascular: Rate/Rhythm: regular rate and regular rhythm Heart Sounds: normal S1 and normal S2; no murmur Extremities: no edema Gastrointestinal (Abdomen): Inspection/Auscultation: normal bowel sounds; abdomen not distended Percussion/Palpation: abdomen soft; abdomen nontender Musculoskeletal: No acute arthritis involving any of the joint Neurologic: normal touch/pain/proprioception and moves all extremities; no focal motor deficits Psychiatric: A+Ox3, euthymic affect Lymphatic: no cervical or axillary lymphadenopathy Results & Data Results & Data Vital Signs (Past 12 Hours) Vital Signs Temp Pulse Pulse Resp BP Pulse Ox O2 Del Method 08/07/23 11:44 36.6 C 61 16 171/87 H 96 Room Air 08/07/23 10:00 61 08/07/23 05:44 60 169/78 H 08/07/23 02:50 191/101 H 08/07/23 02:30 36.5 C 66 16 196/84 H 95 Room Air 08/07/23 02:29 84 Laboratory Results Short CBC 08/06/23 08/07/23 Range/Units 22:23 05:12 WBC 5.70 5.00 (4.8-10.8) K/ul Hgb 11.9 L 11.8 L (12.0-16.0) g/dl Hct 35.2 L 34.9 L (37.0-47.0) % Plt Count 205 171 (130-400) K/uL BMP 08/06/23 08/07/23 22:23 05:12 Sodium 136 137 Potassium 3.7 3.6 Chloride 103 104 Carbon Dioxide 25 25 BUN 16 14 Creatinine 0.85 0.93 Glucose 101 H 95 Calcium 8.8 8.5 L Liver Function 08/06/23 Range/Units 22:23 Total Bilirubin 1.6 H (0.2-1.0) mg/dl AST 18 (13-39) U/L ALT 10 (7-52) U/L Alkaline Phosphatase 33 L (34-104) U/L Albumin 3.8 (3.4-5.0) gm/dl Urine 08/07/23 Range/Units 02:50 Urine Color Yellow Urine Appearance Clear (Clear) Urine pH 5.0 (4.5-7.5) Ur Specific [place] > 1.045 H (1.000-1.030) Urine Protein Negative (Negative) Urine Glucose (UA) Negative (Negative) Medications Administered Current Inpatient Medications Acetaminophen (Acetaminophen 325 Mg Tab) 650 mg PO Q4H PRN PRN Reason: Pain or Fever Stop: 09/06/23 02:20 Last Admin: 08/07/23 09:04 Dose: 650 mg Amlodipine Besylate (Amlodipine Besylate 5 Mg Tab) 5 mg PO QAM [facility] Stop: 09/06/23 09:14 Last Admin: 08/07/23 11:43 Dose: 5 mg Apixaban (Apixaban 5 Mg Tablet) 5 mg PO BID [facility] Stop: 09/06/23 08:59 Last Admin: 08/07/23 08:56 Dose: 5 mg Calcium/Vitamin D (Calcium 600mg + Vit D 400 Iu Tab) 1 tab PO DAILY [facility] Stop: 09/06/23 08:59 Last Admin: 08/07/23 08:56 Dose: 1 tab Sodium Chloride (Nss) 1,000 mls @ 80 mls/hr IV .[id number] [facility] Stop: 08/07/23 14:50 Last Admin: 08/07/23 02:48 Dose: 80 mls/hr Ceftriaxone Sodium (Rocephin) 2,000 mg in 50 mls @ 100 mls/hr IV Q24H [facility] Stop: 08/17/23 05:59 Last Infusion: 08/07/23 06:13 Dose: Infused Lisinopril (Lisinopril 2.5 Mg Tab) 2.5 mg PO DAILY [facility] Stop: 09/06/23 08:59 Last Admin: 08/07/23 08:56 Dose: 2.5 mg Metoprolol Succinate (Metoprolol Succ 50mg Ext Rel Tab) 50 mg PO BID [facility] Stop: 09/06/23 08:59 Last Admin: 08/07/23 08:56 Dose: 50 mg Nitroglycerin (Nitroglycerin Sl 0.4 Mg/Tab Tab) 0.4 mg SL Q5M PRN PRN Reason: Chest Pain Stop: 09/06/23 02:20 Ondansetron HCl (Ondansetron Inj 2 Mg/Ml 2 Ml Vial) 4 mg IV Q6H PRN PRN Reason: Nausea Stop: 09/06/23 02:20 Oxycodone HCl (Oxycodone Hcl Ir 5 Mg Tab (Immediate Release)) 5 mg PO Q6H PRN PRN Reason: Mod-Sev Pain (Scale 4-10) Stop: 08/21/23 02:20 Pantoprazole Sodium (Pantoprazole 40 Mg Tab) 40 mg PO DAILYBB [facility] Stop: 09/06/23 06:29 Last Admin: 08/07/23 03:27 Dose: 40 mg Polyethylene Glycol (Polyethylene (Miralax) 17 Gm Pack) 17 gm PO DAILY PRN PRN Reason: Constipation Stop: 09/06/23 02:20 Potassium Chloride (Potassium Chloride 10 Meq Tabcr) 10 meq PO QAM [facility] Stop: 09/06/23 08:59 Last Admin: 08/07/23 08:57 Dose: 10 meq Pravastatin Sodium (Pravastatin Sod 40 Mg Tab) 40 mg PO HS [facility] Stop: 09/06/23 20:59 Spironolactone (Spironolactone 12.5 Mg Tab) 12.5 mg PO MoWeFr@0900 [facility] Stop: 09/07/23 08:59 Vitamin D (Cholecalciferol 25 Mcg (1000 Units) Tab) 50 mcg PO DAILY [facility] Stop: 09/06/23 08:59 Last Admin: 08/07/23 08:57 Dose: 50 mcg (1) Headache Headache chronicity pattern: acute headache Headache type: unspecified Intractability: not intractable Qualified Code(s): R51.9 - Headache, unspecifie d
[2023-08-07] MEDS ORDERED: methylPREDNISolone 1000 MG/16 ML IV SCH (15:30)
[2023-08-07] MEDS: MAGNESIUM SULFATE / D5W 1 GM/100 ML BAG IV ONE (15:47)
[2023-08-07] MEDS: hydrALAZINE HCL 20 MG/ML VIAL IV PRN (16:22)
[2023-08-07] MEDS: methylPREDNISolone 250 MG in DEXTROSE 5% 100 ML IV SCH (17:42)
[2023-08-07] MEDS: VALPROATE SOD 500 MG in DEXTROSE 5% 50 ML IV SCH (18:16)
[2023-08-07] MEDS: PRAVASTATIN SOD 40 MG TAB PO SCH (20:15)
--- NOTE | 2023-08-08 08:35 | Electrocardiogram Report ---
Test Reason : Blood Pressure : / mmHG Vent. Rate : 070 BPM Atrial Rate : 070 BPM P-R Int : 200 ms QRS Dur : 144 ms QT Int : 492 ms P-R-T Axes : 066 078 014 degrees QTc Int : 531 ms Atrial-sensed ventricular-paced rhythm Abnormal ECG When compared with ECG of 07-AUG-2023 05:51, Vent. rate has increased BY 10 BPM Confirmed by Demetris Barlow ([id number]) on 08/08/2023 8:35:19 AM Referred By: NO PCP Confirmed By:Mahin Barlow
[2023-08-08] MEDS: lisinopril 5 MG TAB PO SCH (08:47)
[2023-08-08] MEDS: SPIRONOLACTONE 12.5 MG TAB PO SCH (08:47)
[2023-08-08 09:19] LABS: Calcium 8.6 mg/dl (8.6-10.3); Creatinine Clr Calc Pharmacy 50.3 ml/min; Est GFR (African American) 81.4 ml/min; Est GFR (Non-African American) 70.2 ml/min; Magnesium 2.3 mg/dl (1.7-2.4); Potassium 3.6 mmol/L (3.5-5.1)
--- NOTE | 2023-08-08 10:15 | Cardiology Progress Note ---
Date of Service August 08, 2023 Assessment & Plan (1) Hypertensive urgency: (2) Chest pain: (3) Headache: (4) Hypertension: (5) Hx of atrioventricular node ablation: (6) Paroxysmal atrial fibrillation: Plan 83 year old woman with past medical history of paroxysmal afib s/p AVN ablation 05/18/23, tachy-syed syndrome s/p PPM, HTN, HLD, TISHA, cardiology consulted due to chest pain and elevated BP. Blood pressure elevated on arrival and has severe headache, consistent with hypertensive urgency. Chest pain now resolved. Troponin negative. EKG with no acute ischemic changes. ACS ruled out. * amlodipine added * lisinopril dose increased from 2.5 mg to 5 mg * continue metoprolol and spironolactone * continue Eliquis for stroke prevention. * Has a dual chamber Medtronic PPM, placed in 2021 that is MRI compatible. OK to proceed with MRI , MRI techs can use the "MRI laurel" to adjust settings. Admission and Anticipated Discharge Date Admission Date: August 07, 2023 Subjective Patient notes feeling slightly improved compared to admission. Had noted a headache for a month per her description to me. BP still above goal. Telemetry reveals sinus rhythm, with V pacing in the 60s to 70s. Physical Exam Physical Exam: General: No acute distress. A+Ox3. HEENT: Normocephalic. Atraumatic. PERRL. EOMI. Conjunctiva and sclera clear. NECK: No carotid bruits. No JVD. Carotid upstrokes are brisk. Heart: RRR. S1 and S2 noted. No murmur. No rubs or gallops. PMI non displaced. Lungs: Clear to auscultation. No wheezes. No rhonchi. No rales. Abdomen: Normal bowel sounds. Soft. Nontender. No masses or organomegaly. No abdominal bruits. Extremities: No edema. No clubbing or cyanosis. Pulses: radial=2/4, posterior tibial=2/4, dorsalis pedis = 2/4. NEURO: No focal deficits. PSYCH: Appropriate affect and insight. Results & Data Vital Signs (Past 12 Hours) Vital Signs Temp Pulse Pulse Resp BP Pulse Ox O2 Del Method 08/08/23 07:57 36.7 C 71 16 182/90 H 96 Room Air 08/08/23 07:00 77 08/08/23 02:57 68 18 176/89 H 95 Room Air, BiPAP 08/08/23 00:00 80 08/07/23 23:15 76 18 176/84 H 95 Room Air, BiPAP 08/07/23 22:20 CPAP Laboratory Results Cardiac Enzymes 08/07/23 08/07/23 Range/Units 11:05 16:45 Troponin I High Sens 10.1 10.5 (0-14) pg/ml Comprehensive Metabolic Panel 08/08/23 Range/Units 07:38 Sodium 139 (136-145) mmol/L Potassium 3.6 (3.5-5.1) mmol/L Chloride 104 (98-107) mmol/L Carbon Dioxide 22 (21-32) mmol/L BUN 15 (6-23) mg/dl Creatinine 0.79 (0.6-1.2) mg/dl Glucose 143 H (70-99(Fasting)) mg/dl Calcium 8.6 (8.6-10.3) mg/dl Intake and Output 08/07/23 08/08/23 08/08/23 22:59 06:59 14:59 Intake Total 1459 / 1668 209 / 1668 175 / 175 Output Total 0 / 0 Balance 1459 / 1668 209 / 1668 175 / 175 Intake: IV 1259 / 1468 209 / 1468 55 / 55 Magnesium Sulfate / D5w 1 gm In 100 / 100 100 ml @ 50 mls/hr IV ONE ONE Rx#:[id number] Sodium Chloride 0.9% 1,000 ml @ 1000 / 1000 80 mls/hr IV .[id number] [facility] Rx#: [id number] Valproate Sod 500 mg In 55 / 110 55 / 110 55 / 55 Dextrose 5% 50 ml @ 55 mls/hr IV Q8H [facility] Rx#:[id number] cefTRIAXone SODIUM 2,000 mg In 50 / 50 50 ml @ 100 mls/hr IV Q24H [facility] Rx#:[id number] methylPREDNISolone 250 mg In / 208 / 208 Dextrose 5% 100 ml @ 312 mls/hr IV Q12H [facility] Rx#:[id number] Oral 200 / 200 120 / 120 Output: # Bowel Movements 0 / 0 Other: Other Intake Source sips # Unmeasured Voids 1 Weight 67.8 kg Weight Measurement Method Built in [facility] (2) Chest pain Chest pain type: other chest pain Qualified Code(s): R07.89 - Other chest pain (3) Headache Headache chronicity pattern: acute headache Headache type: unspecified Intractability: not intractable Qualified Code(s): R51.9 - Headache, unspecified (4) Hypertension Hypertension type: primary hypertension Qualified Code(s): I10 - Essential (primary) hypertension
--- NOTE | 2023-08-08 13:53 | Hospitalist Progress Note ---
Date of Service August 08, 2023 Assessment & Plan (1) Headache: Plan: 83-year-old female with past med history significant for hyperlipidemia, obstructive sleep apnea, paroxysmal atrial fibrillation s/p ablation, tachybradycardia syndrome s/p pacemaker, hypertension, nonrheumatic aortic valve insufficiency and mitral valve regurgitation, GERD, essential tremor, history of GI bleed, presents with headaches and chest pain. Patient has had headaches for the last week. She was in the ER on August [address] head was okay. Her blood pressure was high. Recently her Toprol was decreased to 25 mg twice daily and amlodipine was stopped because of low blood pressures .When patient was in the ER on August 03 her Toprol was increased back to 50 mg twice daily and which she is taking now. Has her headache is not getting better and today also she developed some left chest pain in the axillary region which prompted her to come back to the ER. Currently chest pain got resolved. Still has headaches. Headaches in the front of the head and back of the head. And also in temporal region. Associated with some nausea. No blurred visions or double vision. No earache or runny nose or sore throat. No cough. Appetite is not great. No difficulty swallowing. No shortness of breath. No abdominal pain. Normal bowel and bladder movements. Ambulating okay. Lives with her . Hypertension Currently on Toprol-XL 50 mg twice daily and lisinopril 2.5 mg daily And spironolactone 3 times a week Received a dose of lisinopril 10mg as BP elevated on the floor. Blood pressure remains elevated at 171/87 as of this morning of 08/07/2023 Appreciate cardiology input and recommendation No evidence of ACS Amlodipine 5 mg has been added Lisinopril dose has been increased to 5 mg Blood pressure seems to be reasonably controlled and noted to be 150/79 as of 08/08/2023 Headache-without any neurological symptoms Has been complaining of headaches for some time In the ER CTA head and neck and CT head are unremarkable Could not do MRI on the weekends because of the pacemaker Appreciate neurology input and recommendation Will try 1 g magnesium sulfate x 1, 500 mg valproic acid IV every 8 hourly for 3 doses and to 2 mg IV Solu-Medrol every 12 all for 2 doses and then see the improvement of headache and not MRI of the brain with and without contrast was requested but unfortunately cannot do that due to pacemaker Do a CAT scan for any change in neurological status Headache did not improve that much with above regimen as advised by the neurologist The pacemaker is compatible with MRI Awaiting MRI with and without contrast Chest pain Resolved now Initial workup okay We will follow serial enzymes and echo Consult cardiology in a.m. for further recommendations Troponins and EKG remain unremarkable Appreciate cardiology input and recommendation History of A-fib/atrial flutter Tachybradycardia syndrome History of ablation S/p pacemaker Currently on metoprolol succinate 50 mg twice daily and Eliquis Rate is controlled and the patient has been on Eliquis Obstructive sleep apnea CPAP nightly Hyperlipidemia On statin Heart failure with preserved EF On lisinopril and spironolactone GERD On Prevacid DVT prophylaxis On Eliquis Disposition Med/telemetry Full code Admission and Anticipated Discharge Date Admission Date: August 07, 2023 Subjective 08/07/2023 The patient was seen and examined in medical telemetry unit She has been complaining of headache occipital and frontal for the last few weeks without any neurological symptoms Has had chest pain prior to admission Blood pressure has been running very high Has been feeling a little better since admission 08/08/2023 The patient was seen and examined in medical telemetry unit Her headache is minimally improved No associated neurological symptoms Blood pressure seems to be reasonably controlled Review of Systems Review of Systems: All systems reviewed and are unremarkable except as noted below Physical Exam Physical Exam: Lying in bed without any acute distress Constitutional: average body habitus; not ill appearing Eyes: PERRL, conjunctivae normal, anicteric sclerae ENMT: external ear and nose normal, oropharynx normal Neck: trachea midline, no thyromegaly Respiratory: no respiratory distress Auscultation: lungs clear to auscultation bilaterally Cardiovascular: Rate/Rhythm: regular rate and regular rhythm Heart Sounds: normal S1 and normal S2; no murmur Extremities: no edema Gastrointestinal (Abdomen): Inspection/Auscultation: normal bowel sounds; abdomen not distended Percussion/Palpation: abdomen soft; abdomen nontender Neurologic: normal touch/pain/proprioception and moves all extremities; no focal motor deficits Psychiatric: A+Ox3, euthymic affect Lymphatic: no cervical or axillary lymphadenopathy Results & Data Results & Data Vital Signs (Past 12 Hours) Vital Signs Temp Pulse Pulse Resp BP Pulse Ox O2 Del Method 08/08/23 12:07 36.6 C 72 16 150/79 H 94 Room Air 08/08/23 10:15 169/83 H 08/08/23 07:57 36.7 C 71 16 182/90 H 96 Room Air 08/08/23 07:00 77 08/08/23 02:57 68 18 176/89 H 95 Room Air, BiPAP Laboratory Results [facility] 08/08/23 07:38 Sodium 139 Potassium 3.6 Chloride 104 Carbon Dioxide 22 BUN 15 Creatinine 0.79 Glucose 143 H Calcium 8.6 Medications Administered Current Inpatient Medications Acetaminophen (Acetaminophen 325 Mg Tab) 650 mg PO Q4H PRN PRN Reason: Pain or Fever Stop: 09/06/23 02:20 Last Admin: 08/07/23 20:20 Dose: 650 mg Amlodipine Besylate (Amlodipine Besylate 5 Mg Tab) 5 mg PO QAM [facility] Stop: 09/06/23 09:14 Last Admin: 08/08/23 08:48 Dose: 5 mg Apixaban (Apixaban 5 Mg Tablet) 5 mg PO BID [facility] Stop: 09/06/23 08:59 Last Admin: 08/08/23 08:48 Dose: 5 mg Calcium/Vitamin D (Calcium 600mg + Vit D 400 Iu Tab) 1 tab PO DAILY [facility] Stop: 09/06/23 08:59 Last Admin: 08/08/23 08:48 Dose: 1 tab Hydralazine HCl (Hydralazine Hcl 20 Mg/Ml Vial) 10 mg IV Q6H PRN PRN Reason: Blood Pressure - High Stop: 09/06/23 15:59 Last Admin: 08/07/23 16:22 Dose: 10 mg Ceftriaxone Sodium (Rocephin) 2,000 mg in 50 mls @ 100 mls/hr IV Q24H [facility] Stop: 08/17/23 05:59 Last Infusion: 08/08/23 06:20 Dose: Infused Lisinopril (Lisinopril 5 Mg Tab) 5 mg PO DAILY [facility] Stop: 09/07/23 08:59 Last Admin: 08/08/23 08:47 Dose: 5 mg Metoprolol Succinate (Metoprolol Succ 50mg Ext Rel Tab) 50 mg PO BID [facility] Stop: 09/06/23 08:59 Last Admin: 08/08/23 08:48 Dose: 50 mg Nitroglycerin (Nitroglycerin Sl 0.4 Mg/Tab Tab) 0.4 mg SL Q5M PRN PRN Reason: Chest Pain Stop: 09/06/23 02:20 Ondansetron HCl (Ondansetron Inj 2 Mg/Ml 2 Ml Vial) 4 mg IV Q6H PRN PRN Reason: Nausea Stop: 09/06/23 02:20 Oxycodone HCl (Oxycodone Hcl Ir 5 Mg Tab (Immediate Release)) 5 mg PO Q6H PRN PRN Reason: Mod-Sev Pain (Scale 4-10) Stop: 08/21/23 02:20 Pantoprazole Sodium (Pantoprazole 40 Mg Tab) 40 mg PO DAILYBB [facility] Stop: 09/06/23 06:29 Last Admin: 08/08/23 05:46 Dose: 40 mg Polyethylene Glycol (Polyethylene (Miralax) 17 Gm Pack) 17 gm PO DAILY PRN PRN Reason: Constipation Stop: 09/06/23 02:20 Potassium Chloride (Potassium Chloride 10 Meq Tabcr) 10 meq PO QAM [facility] Stop: 09/06/23 08:59 Last Admin: 08/08/23 08:48 Dose: 10 meq Pravastatin Sodium (Pravastatin Sod 40 Mg Tab) 40 mg PO HS [facility] Stop: 09/06/23 20:59 Last Admin: 08/07/23 20:15 Dose: 40 mg Spironolactone (Spironolactone 12.5 Mg Tab) 12.5 mg PO MoWeFr@0900 [facility] Stop: 09/07/23 08:59 Last Admin: 08/08/23 08:47 Dose: 12.5 mg Vitamin D (Cholecalciferol 25 Mcg (1000 Units) Tab) 50 mcg PO DAILY [facility] Stop: 09/06/23 08:59 Last Admin: 08/08/23 08:48 Dose: 50 mcg (1) Headache Headache chronicity pattern: acute headache Headache type: unspecified Intractability: not intractable Qualified Code(s): R51.9 - Headache, unspecified
[2023-08-08] MEDS: GADOBUTROL 65ML VIAL IV ONE (14:31)
--- NOTE | 2023-08-08 14:45 | Magnetic Resonance Report ---
MRI OF THE BRAIN COMBO CLINICAL HISTORY: Headache. COMPARISON STUDY: CT of the brain dated 08/06/2023. TECHNIQUE: MRI of the brain was performed utilizing various T1 and T2-weighted sequences in the axial , sagittal, and coronal planes. Contrast-enhanced sequences were acquired following the administratio n of 6.5 cc of Gadavist. FINDINGS: Brain parenchyma: There is age-related involutional change noting moderate confluent subcortical and periventricular microangiopathic disease. There is no hemorrhage or mass effect. There is no restrict ed diffusion to suggest acute ischemia. A 1.3 cm enhancing ovoid extra-axial nodule along the left fa lx/tentorium cerebelli seen on coronal images #21 is unchanged and likely represents a meningioma. No additional enhancing lesions are suggested on the postcontrast images. Mineralization is noted in th e basal ganglia. Foy-white matter differentiation is preserved. No extra-axial fluid collection is s een. The cerebellar tonsils are normal in configuration. Ventricles, sulci, and cisterns: Prominent secondary to involutional change. Pituitary and sella: Unremarkable. Intracranial vasculature: Normal flow voids are maintained at the skull base. Orbits: The bony orbits are grossly intact. Orbital contents are normal in appearance noting bilatera l ocular lens implants. Sinuses and mastoids: Clear. Calvarium: Unremarkable. Cervical cord: Partially visualized cervical spinal cord is normal in morphology and signal intensity . IMPRESSION: No acute intracranial abnormality. ACT 112: Negative or not required by law. Electronically signed by: Pepe Whittington M.D. 08/08/2023 2:43 PM
[2023-08-09 06:44] LABS: Mean Corpuscular Hemoglobin 29.6 pg (25.0-34.0); Mean Corpuscular Hgb Conc 34.3 g/dL (32.0-36.0); Mean Corpuscular Volume 86.4 fL (80.0-100.0); Mean Platelet Volume 11.4 fL (9.4-12.4); Platelet Count 231 K/uL (130-400); RDW Coefficient of Variation 13.1 % (11.5-14.5); RDW Standard Deviation 41.1 fL (36.4-46.3); Red Blood Count 4.05 M/uL (4.20-5.40); White Blood Count 17.41 K/ul (4.8-10.8)
[2023-08-09 07:04] LABS: BUN Creatinine Ratio 32.6 (10-20); Calcium 8.6 mg/dl (8.6-10.3); Est GFR (African American) 73.4 ml/min; Est GFR (Non-African American) 63.4 ml/min; Magnesium 2.4 mg/dl (1.7-2.4); Potassium 3.8 mmol/L (3.5-5.1)
[2023-08-09 07:12] LABS: Basophils # (auto) 0.01 K/uL (0.00-0.20); Basophils % (auto) 0.1 %; Immature Granulocytes # (auto) 0.08 K/uL (0.01-0.20); Immature Granulocytes % (auto) 0.5 %; Lymphocytes % (auto) 3.4 %; Monocytes # (auto) 0.58 K/uL (0.11-0.59); Monocytes % (auto) 3.3 %; Neutrophils # (auto) 16.14 K/uL (1.40-6.50); Neutrophils % (auto) 92.7 %
--- NOTE | 2023-08-09 09:15 | Electrocardiogram Report ---
Test Reason : Blood Pressure : / mmHG Vent. Rate : 062 BPM Atrial Rate : 062 BPM P-R Int : 186 ms QRS Dur : 128 ms QT Int : 486 ms P-R-T Axes : 096 017 060 degrees QTc Int : 493 ms AV dual-paced rhythm Abnormal ECG When compared with ECG of 08-AUG-2023 05:51, Vent. rate has decreased BY 8 BPM Confirmed by Demetris Barlow ([id number]) on 08/09/2023 9:15:23 AM Referred By: LEBRON PCP Confirmed By:Mahin Barlow
--- NOTE | 2023-08-09 12:11 | Cardiology Progress Note ---
Date of Service August 09, 2023 Assessment & Plan (1) Hypertensive urgency: (2) Chest pain: (3) Headache: (4) Hypertension: (5) Hx of atrioventricular node ablation: (6) Paroxysmal atrial fibrillation: Plan 83 year old woman with past medical history of paroxysmal afib s/p AVN ablation 05/18/23, tachy-syed syndrome s/p PPM, HTN, HLD, TISHA, cardiology consulted due to chest pain and elevated BP. Blood pressure elevated on arrival and has severe headache, consistent with hypertensive urgency. Chest pain now resolved. Troponin negative. EKG with no acute ischemic changes. ACS ruled out. EKG performed today 08/09/2023 at 5:32 AM and interpret independently: Sinus rhythm with AV sequential pacing at 62 bpm. * amlodipine added * lisinopril dose increased from 2.5 mg to 5 mg * continue metoprolol and spironolactone * continue Eliquis for stroke prevention. * MRI completed without acute intracranial findings. * Mild leukocytosis noted, urinalysis suggestive of possible infection, agree with Rocephin. * Increase activity as tolerated. Admission and Anticipated Discharge Date Admission Date: August 07, 2023 Subjective Pt feeling improved. Headache is better. BP is improved. Telemetry reveals SR with V-pacing in the 70s. Physical Exam Physical Exam: General: No acute distress. A+Ox3. HEENT: Normocephalic. Atraumatic. PERRL. EOMI. Conjunctiva and sclera clear. NECK: No carotid bruits. No JVD. Carotid upstrokes are brisk. Heart: RRR. S1 and S2 noted. No murmur. No rubs or gallops. PMI non displaced. Lungs: Clear to auscultation. No wheezes. No rhonchi. No rales. Abdomen: Normal bowel sounds. Soft. Nontender. No masses or organomegaly. No abdominal bruits. Extremities: No edema. No clubbing or cyanosis. Pulses: radial=2/4, posterior tibial=2/4, dorsalis pedis = 2/4. NEURO: No focal deficits. PSYCH: Appropriate affect and insight. Results & Data Vital Signs (Past 12 Hours) Vital Signs Temp Pulse Pulse Resp BP Pulse Ox O2 Del Method 08/09/23 11:23 36.7 C 66 18 167/80 H 96 Room Air 08/09/23 10:29 147/75 H 08/09/23 07:31 36.7 C 63 16 174/81 H 96 BiPAP 08/09/23 07:00 67 08/09/23 04:08 36.9 C 58 L 20 155/81 H 93 Room Air, CPAP (2) Chest pain Chest pain type: other chest pain Qualified Code(s): R07.89 - Other chest pain (3) Headache Headache chronicity pattern: acute headache Headache type: unspecified Intractability: not intractable Qualified Code(s): R51.9 - Headache, unspecified (4) Hypertension Hypertension type: primary hypertension Qualified Code(s): I10 - Essential (primary) hypertension
--- NOTE | 2023-08-09 13:20 | Hospitalist Progress Note ---
Date of Service August 09, 2023 Assessment & Plan (1) Headache: Plan: 83-year-old female with past med history significant for hyperlipidemia, obstructive sleep apnea, paroxysmal atrial fibrillation s/p ablation, tachybradycardia syndrome s/p pacemaker, hypertension, nonrheumatic aortic valve insufficiency and mitral valve regurgitation, GERD, essential tremor, history of GI bleed, presents with headaches and chest pain. Patient has had headaches for the last week. She was in the ER on August [address] head was okay. Her blood pressure was high. Recently her Toprol was decreased to 25 mg twice daily and amlodipine was stopped because of low blood pressures .When patient was in the ER on August 03 her Toprol was increased back to 50 mg twice daily and which she is taking now. Has her headache is not getting better and today also she developed some left chest pain in the axillary region which prompted her to come back to the ER. Currently chest pain got resolved. Still has headaches. Headaches in the front of the head and back of the head. And also in temporal region. Associated with some nausea. No blurred visions or double vision. No earache or runny nose or sore throat. No cough. Appetite is not great. No difficulty swallowing. No shortness of breath. No abdominal pain. Normal bowel and bladder movements. Ambulating okay. Lives with her . Hypertension Currently on Toprol-XL 50 mg twice daily and lisinopril 2.5 mg daily And spironolactone 3 times a week Received a dose of lisinopril 10mg as BP elevated on the floor. Blood pressure remains elevated at 171/87 as of this morning of 08/07/2023 Appreciate cardiology input and recommendation No evidence of ACS Amlodipine 5 mg has been added Lisinopril dose has been increased to 5 mg Blood pressure seems to be reasonably controlled and noted to be 150/79 as of 08/08/2023 Blood pressure is reasonably controlled and she denies any significant symptoms Headache-without any neurological symptoms Has been complaining of headaches for some time In the ER CTA head and neck and CT head are unremarkable Could not do MRI on the weekends because of the pacemaker Appreciate neurology input and recommendation Will try 1 g magnesium sulfate x 1, 500 mg valproic acid IV every 8 hourly for 3 doses and to 2 mg IV Solu-Medrol every 12 all for 2 doses and then see the improvement of headache and not MRI of the brain with and without contrast was requested but unfortunately falguni ot do that due to pacemaker Do a CAT scan for any change in neurological status Headache did not improve that much with above regimen as advised by the neurologist The pacemaker is compatible with MRI Awaiting MRI with and without contrast-MRI has been negative Headache is much improved Will get PT and OT evaluation prior to discharge home this afternoon Chest pain Resolved now Initial workup okay We will follow serial enzymes and echo Consult cardiology in a.m. for further recommendations Troponins and EKG remain unremarkable Appreciate cardiology input and recommendation History of A-fib/atrial flutter Tachybradycardia syndrome History of ablation S/p pacemaker Currently on metoprolol succinate 50 mg twice daily and Eliquis Rate is controlled and the patient has been on Eliquis Obstructive sleep apnea CPAP nightly Hyperlipidemia On statin Heart failure with preserved EF On lisinopril and spironolactone GERD On Prevacid DVT prophylaxis On Eliquis Disposition Med/telemetry Full code Admission and Anticipated Discharge Date Admission Date: August 07, 2023 Subjective 08/07/2023 The patient was seen and examined in medical telemetry unit She has been complaining of headache occipital and frontal for the last few weeks without any neurological symptoms Has had chest pain prior to admission Blood pressure has been running very high Has been feeling a little better since admission 08/08/2023 The patient was seen and examined in medical telemetry unit Her headache is minimally improved No associated neurological symptoms Blood pressure seems to be reasonably controlled 08/09/2023 The patient was seen and examined in medical telemetry unit She has been feeling much better and the headache is almost gone She denies any significant symptoms and wants to go home She will be discharged home following PT and OT evaluation Review of Systems Review of Systems: All systems reviewed and are unremarkable except as noted below Physical Exam Physical Exam: Lying in bed without any acute distress Constitutional: average body habitus; not ill appearing Eyes: PERRL, conjunctivae normal, anicteric sclerae ENMT: external ear and nose normal, oropharynx normal Neck: trachea midline, no thyromegaly Respiratory: no respiratory distress Auscultation: lungs clear to auscultation bilaterally Cardiovascular: Rate/Rhythm: regular rate and regular rhythm Heart Sounds: normal S1 and normal S2; no murmur Extremities: no edema Gastrointestinal (Abdomen): Inspection/Auscultation: normal bowel sounds; ab domen not distended Percussion/Palpation: abdomen soft; abdomen nontender Neurologic: normal touch/pain/proprioception and moves all extremities; no focal motor deficits Psychiatric: A+Ox3, euthymic affect Lymphatic: no cervical or axillary lymphadenopathy Results & Data Results & Data Vital Signs (Past 12 Hours) Vital Signs Temp Pulse Pulse Resp BP Pulse Ox O2 Del Method 08/09/23 11:23 36.7 C 66 18 167/80 H 96 Room Air 08/09/23 10:29 147/75 H 08/09/23 07:31 36.7 C 63 16 174/81 H 96 BiPAP 08/09/23 07:00 67 08/09/23 04:08 36.9 C 58 L 20 155/81 H 93 Room Air, CPAP Laboratory Results Short CBC 08/09/23 Range/Units 05:40 WBC 17.41 H (4.8-10.8) K/ul Hgb 12.0 (12.0-16.0) g/dl Hct 35.0 L (37.0-47.0) % Plt Count 231 (130-400) K/uL [facility] 08/09/23 05:40 Sodium 137 Potassium 3.8 Chloride 104 Carbon Dioxide 23 BUN 28 H Creatinine 0.86 Glucose 118 H Calcium 8.6 Medications Administered Current Inpatient Medications Acetaminophen (Acetaminophen 325 Mg Tab) 650 mg PO Q4H PRN PRN Reason: Pain or Fever Stop: 09/06/23 02:20 Last Admin: 08/07/23 20:20 Dose: 650 mg Amlodipine Besylate (Amlodipine Besylate 5 Mg Tab) 5 mg PO QAM [facility] Stop: 09/06/23 09:14 Last Admin: 08/09/23 08:23 Dose: 5 mg Apixaban (Apixaban 5 Mg Tablet) 5 mg PO BID [facility] Stop: 09/06/23 08:59 Last Admin: 08/09/23 08:23 Dose: 5 mg Calcium/Vitamin D (Calcium 600mg + Vit D 400 Iu Tab) 1 tab PO DAILY [facility] Stop: 09/06/23 08:59 Last Admin: 08/09/23 08:22 Dose: 1 tab Hydralazine HCl (Hydralazine Hcl 20 Mg/Ml Vial) 10 mg IV Q6H PRN PRN Reason: Blood Pressure - High Stop: 09/06/23 15:59 Last Admin: 08/07/23 16:22 Dose: 10 mg Ceftriaxone Sodium (Rocephin) 2,000 mg in 50 mls @ 100 mls/hr IV Q24H [facility] Stop: 08/17/23 05:59 Last Infusion: 08/09/23 06:15 Dose: Infused Lisinopril (Lisinopril 5 Mg Tab) 5 mg PO DAILY [facility] Stop: 09/07/23 08:59 Last Admin: 08/09/23 08:23 Dose: 5 mg Metoprolol Succinate (Metoprolol Succ 50mg Ext Rel Tab) 50 mg PO BID [facility] Stop: 09/06/23 08:59 Last Admin: 08/09/23 08:22 Dose: 50 mg Nitroglycerin (Nitroglycerin Sl 0.4 Mg/Tab Tab) 0.4 mg SL Q5M PRN PRN Reason: Chest Pain Stop: 09/06/23 02:20 Ondansetron HCl (Ondansetron Inj 2 Mg/Ml 2 Ml Vial) 4 mg IV Q6H PRN PRN Reason: Nausea Stop: 09/06/23 02:20 Oxycodone HCl (Oxycodone Hcl Ir 5 Mg Tab (Immediate Release)) 5 mg PO Q6H PRN PRN Reason: Mod-Sev Pain (Scale 4-10) Stop: 08/21/23 02:20 Pantoprazole Sodium (Pantoprazole 40 Mg Tab) 40 mg PO DAILYBB [facility] Stop: 09/06/23 06:29 Last Admin: 08/09/23 05:38 Dose: 40 mg Polyethylene Glycol (Polyethylene (Miralax) 17 Gm Pack) 17 gm PO DAILY PRN PRN Reason: Constipation Stop: 09/06/23 02:20 Potassium Chloride (Potassium Chloride 10 Meq Tabcr) 10 meq PO QAM [facility] Stop: 09/06/23 08:59 Last Admin: 08/09/23 08:25 Dose: 10 meq Pravastatin Sodium (Pravastatin Sod 40 Mg Tab) 40 mg PO HS [facility] Stop: 09/06/23 20:59 Last Admin: 08/08/23 20:46 Dose: 40 mg Spironolactone (Spironolactone 12.5 Mg Tab) 12.5 mg PO MoWeFr@0900 [facility] Stop: 09/07/23 08:59 Last Admin: 08/08/23 08:47 Dose: 12.5 mg Vitamin D (Cholecalciferol 25 Mcg (1000 Units) Tab) 50 mcg PO DAILY [facility] Stop: 09/06/23 08:59 Last Admin: 08/09/23 08:23 Dose: 50 mcg (1) Headache Headache chronicity pattern: acute headache Headache type: unspecified Intractability: not intractable Qualified Code(s): R51.9 - Headache, unspecified
--- NOTE | 2023-08-09 19:06 | Discharge Summary ---
Date of Service August 09, 2023 Admission HPI Per Admitting Provider 83-year-old female with past med history significant for hyperlipidemia, obstructive sleep apnea, paroxysmal atrial fibrillation s/p ablation, tachybradycardia syndrome s/p pacemaker, hypertension, nonrheumatic aortic valve insufficiency and mitral valve regurgitation, GERD, essential tremor, history of GI bleed, presents with headaches and chest pain. Patient has had headaches for the last week. She was in the ER on August [address] head was okay. Her blood pressure was high. Recently her Toprol was decreased to 25 mg twice daily and amlodipine was stopped because of low blood pressures .When patient was in the E R on August 03 her Toprol was increased back to 50 mg twice daily and which she is taking now. Has her headache is not getting better and today also she developed some left chest pain in the axillary region which prompted her to come back to the ER. Currently chest pain got resolved. Still has headaches. Headaches in the front of the head and back of the head. And also in temporal region. Associated with some nausea. No blurred visions or double vision. No earache or runny nose or sore throat. No cough. Appetite is not great. No difficulty swallowing. No shortness of breath. No abdominal pain. Normal bowel and bladder movements. Ambulating okay. Lives with her . Past medical history. As mentioned above. Past surgical history. Colonoscopy and EGD. Pulmonary vein isolation. Left knee arthroscopy. Laparoscopic cholecystectomy. S/p pacemaker. Bilateral cataracts. Right hip fracture repair. Social history. . No smoking. No alcohol no drug use. Family history. Mother had diabetes. Hypertension. Father had emphysema. Sister has hypertension Admission Exam Per Admitting Provider Physical Exam: General- Not in distress Head- atraumatic Eyes- PERRL. ENT- oropharynx clear Neck- supple, no JVD. Lungs- clear to auscultation no wheezing or crackles. Heart- regular rhythm; no murmur, no gallop. Abdomen- normal bowel sounds, soft, nontender, no distension. Extremities- no pretibial edema, no erythema seen Neuro- alert, oriented PERRL, no facial palsy; no dysarthria; motor 5/5 bilaterally; no pronator drift Skin- warm & dry Principal Diagnosis Headache likely secondary to uncontrolled blood pressure, no neurological cause, history of A-fib/a flutter Discharge Exam Lying in bed without any acute distress Constitutional average body habitus; not ill appearing Eyes PERRL, conjunctivae normal, anicteric sclerae ENMT external ear and nose normal, oropharynx normal Neck trachea midline, no thyromegaly Respiratory no respiratory distress Auscultation: lungs clear to auscultation bilaterally Cardiovascular Rate/Rhythm: regular rate and regular rhythm Heart Sounds: normal S1 and normal S2; no murmur Extremities: no edema Gastrointestinal (Abdomen) Inspection/Auscultation: normal bowel sounds; abdomen not distended Percussion/Palpation: abdomen soft; abdomen nontender Neurologic normal touch/pain/proprioception and moves all extremities; no focal motor deficits Psychiatric A+Ox3, euthymic affect Lymphatic no cervical or axillary lymphadenopathy Discharge Data Allergies Allergy/AdvReac Type Severity Reaction Status Date / Time Penicillins Allergy Unknown RASH Verified 08/07/23 00:12 Consultations 08/06/23 23:52 ED Decision to Admit Stat 08/07/23 08:00 Consult Cardiology Routine Consult Neurology Routine Ordered Studies 08/06/23 22:12 CTA chest w con [CT angio chest w con] Stat 08/06/23 22:13 CT angio head w con Stat CT angio neck with con Stat CT head/brain wo con Stat 08/08/23 10:04 MRI Brain [MR brain wo/w con] Routine Hospital Course (1) Headache: 83-year-old female with past med history significant for hyperlipidemia, obstructive sleep apnea, paroxysmal atrial fibrillation s/p ablation, tachybradycardia syndrome s/p pacemaker, hypertension, nonrheumatic aortic valve insufficiency and mitral valve regurgitation, GERD, essential tremor, history of GI bleed, presents with headaches and chest pain. Patient has had headaches for the last week. She was in the ER on August [address] head was okay. Her blood pressure was high. Recently her Toprol was decreased to 25 mg twice daily and amlodipine was stopped because of low blood pressures .When patient was in the ER on August 03 her Toprol was increased back to 50 mg twice daily and which she is taking now. Has her headache is not getting better and today also she developed some left chest pain in the axillary region which prompted her to come back to the ER. Currently chest pain got resolved. Still has headaches. Headaches in the front of the head and back of the head. And also in temporal region. Associated with some nausea. No blurred visions or double vision. No earache or runny nose or sore throat. No cough. Appetite is not great. No difficulty swallowing. No shortness of breath. No abdominal pain. Normal bowel and bladder movements. Ambulating okay. Lives with her . Hypertension Currently on Toprol-XL 50 mg twice daily and lisinopril 2.5 mg daily And spironolactone 3 times a week Received a dose of lisinopril 10mg as BP elevated on the floor. Blood pressure remains elevated at 171/87 as of this morning of 08/07/2023 Appreciate cardiology input and recommendation No evidence of ACS Amlodipine 5 mg has been added Lisinopril dose has been increased to 5 mg Blood pressure seems to be reasonably controlled and noted to be 150/79 as of 08/08/2023 Blood pressure is reasonably controlled and she denies any significant symptoms Headache-without any neurological symptoms Has been complaining of headaches for some time In the ER CTA head and neck and CT head are unremarkable Could not do MRI on the weekends because of the pacemaker Appreciate neurology input and recommendation Will try 1 g magnesium sulfate x 1, 500 mg valproic acid IV every 8 hourly for 3 doses and to 2 mg IV Solu-Medrol every 12 all for 2 doses and then see the improvement of headache and not MRI of the brain with and without contrast was requested but unfortunately cannot do that due to pacemaker Do a CAT scan for any change in neurological status Headache did not improve that much with above regimen as advised by the neurologist The pacemaker is compatible with MRI Awaiting MRI with and without contrast-MRI has been negative Headache is much improved Will get PT and OT evaluation prior to discharge home this afternoon Chest pain Resolved now Initial workup okay We will follow serial enzymes and echo Consult cardiology in a.m. for further recommendations Troponins and EKG remain unremarkable Appreciate cardiology input and recommendation History of A-fib/atrial flutter Tachybradycardia syndrome History of ablation S/p pacemaker Currently on metoprolol succinate 50 mg twice daily and Eliquis Rate is controlled and the patient has been on Eliquis Obstructive sleep apnea CPAP nightly Hyperlipidemia On statin Heart failure with preserved EF On lisinopril and spironolactone GERD On Prevacid DVT prophylaxis On Eliquis Disposition Med/telemetry Full code Total Time Total Time Spent Total Time Spent (In Minutes): 35 minutes Discharge Plan Discharge Items Patient Disposition: Home - Self-Care Reason For Visit: HEADACHES, CHEST PAIN Discharge Diagnosis: Headache likely secondary to uncontrolled blood pressure, no neurological cause, history of A-fib/a flutter Condition on Discharge: Good Activity: Resume your previous activity Non-emergency contact: Primary Care Provider Call non-emergency contact if: you have any medication questions and your symptoms worsen Follow-up/Referrals: Gregory Goodson MD [Primary Care Provider] - 08/15/23 4:00 pm (Date & Time 08/15/2023 4:00 PM Provider Gregory Goodson MD Department Family [facility] ) Diet: Heart Healthy Addtl Attending Provider Instructions: Please take precautions to avoid falls Take your medications as advised Please keep appointments with the healthcare providers Pending Studies at Discharge: No Stand-Alone Forms: [employer], Smoking Cessation Medications and DC Order Prescriptions: New amlodipine [Norvasc] 5 mg Tablet 5 mg PO QAM Qty: 30 0RF lisinopril [Zestril] 5 mg Tablet 5 mg PO DAILY Qty: 30 0RF Continued pravastatin 40 mg tablet 40 mg PO HS potassium chloride [Klor-Con M10] 10 mEq tablet,ER particles/crystals 10 meq PO QAM lansoprazole [Prevacid] 30 mg capsule,delayed release(DR/EC) 30 mg PO DAILYBB spironolactone 25 mg tablet 12.5 mg PO MOWEFR Rx Instructions: 12.5mg by mouth on Mon/Wed/Fri calcium carbonate [Calcium 600] 600 mg calcium (1,500 mg) Tablet 600 mg PO DAILY cholecalciferol (vitamin D3) [Vitamin D3] 50 mcg (2,000 unit) Tablet 50 mcg PO DAILY Eliquis 5 mg Tablet 5 mg PO BID 30 Days Qty: 60 1RF metoprolol succinate 50 mg Tablet Extended Release 24 Hr 50 mg PO BID 30 Days Qty: 60 1RF Discontinued lisinopril 2.5 mg tablet 2.5 mg PO DAILY Qty: 30 1RF Discharge Orders: Discharge Order (Routine); Ordered 08/09/23 Ordered By: Delores Lyn Admission Data Admit Date/Time: 08/07/23 01:15 Attending Provider: Delores Lyn Admit Provider: Srinivas Alexis Primary Care Provider: Gregory Goodson Other Providers: Srinivas Alexis; Josef Seo; Amie Whitman; Duke Grissom; Amie Marcano; Jair Jackson; Giovany Andrews; Javier Woodson; Juan Luis Rodriguez; Phyllis Beal; Omar Garcia; Narendra Madera; Tommie Aldridge; Angelo Lane; Riri Gross; Racquel Tillman; Juan Luis Pino Other Interventions: Discharge Summary Assessment (RN) Last Done: 08/09/23 16:36
== END 2023-08-09 17:19 | disposition home or self-care (01) | DRG 305 ==
LOC: ED 22:04 → 2N 08-07 01:15